=== PATIENT | female | born 1945 | race Caucasian/White ===

== ENCOUNTER → 2021-02-25 13:16 | Outpatient (CLI) | payer MEDICARE, SELFPAY ==
[2021-02-25 13:37] LABS: Absolute Lymphocyte Count 2.51 X10^3/uL (0.83-4.51); Absolute Neutrophil Count 4.3 X10^3/uL (2.0-7.7); Basophil# 0.09 X10^3/uL; Basophil% 1.2 % (0-1); Eosinophil# 0.18 X10^3/uL; Eosinophils% 2.3 % (0-5); Hematocrit 40.2 % (37-47); Hemoglobin 13.2 g/dL (12.0-15.0); Lymphocyte # 2.51 X10^3/ul (0.83-4.51); Lymphocyte % 32.4 % (19-41); Mean Corp Hgb Conc 32.8 g/dL (32-36); Mean Corpuscular Hgb 28.9 pg (27.0-32.0); Mean Platelet Vol. 10.6 fl (6.2-12.0); Monocyte# 0.62 X10^3/uL; NRBC Flagged by Analyzer 0 % (0-5); Neutrophil # 4.33 X10^3/uL (2.7-7.7); Neutrophil % 55.8 % (47-70); Platelet Count 193 K/mm3 (150-450); RBC Distribution Width CV 13.2 % (11.6-14.6); RBC Distribution Width SD 42.9 fl (35.1-43.9); Red Blood Count 4.57 M/mm3 (4.2-5.4); White Blood Count 7.8 K/mm3 (4.4-11.0)
[2021-02-25 14:03] LABS: Vitamin D,25 Hydroxy 46.3 ng/mL
[2021-02-25 14:10] LABS: ALB/GLOB Ratio 0.7 RATIO (0.9-2.4); AST(SGOT) 50 U/L (15-37); Alanine Aminotransfer ALT/SGPT 52 U/L (13-56); Albumin, Serum 3.5 g/dL (3.2-5.0); Alkaline Phosphatase 111 U/L (45-117); Anion Gap 7 (5-15); BUN 29 mg/dL (7-18); BUN/Creat Ratio 22.5 RATIO (10-20); Calcium,Total 9.7 mg/dL (8.5-10.1); Chloride 104 mmol/L (98-107); Creatinine, Serum 1.29 mg/dL (0.55-1.02); EST Glomerular Filtration Rate 43 mL/min (>60); Est Glom Filt Rate - Afr Amer 52 mL/min (>60); Glucose 214 mg/dL (74-106); Protein, Total 8.5 g/dL (6.4-8.2); Sodium Level 137 mmol/L (136-145); Thyroid Stim Hormone (TSH) 0.85 uIU/mL (0.358-3.74)
== END ==
PROVIDERS: PCP Family Medicine Geriatric Medicine; Referring Provider Family Medicine Geriatric Medicine; Visit Provider Family Medicine Geriatric Medicine
DX: I10 Essential (primary) hypertension (principal); E55.9 Vitamin D deficiency, unspecified
CPT/HCPCS: 36415; 80053; 82306; 84443; 85025

== ENCOUNTER → 2021-04-08 13:42 | Outpatient (CLI) | payer MEDICARE, SELFPAY ==
[2021-04-08 15:12] LABS: Amphetamine Urine VISTA NEGATIVE (<1000 ng/mL); Barbiturate Urine VISTA NEGATIVE (< 200 ng/mL); Benzodiazepine Urine VISTA NEGATIVE (< 200 ng/mL); Cocaine Urine VISTA NEGATIVE (< 300 ng/mL); Ecstacy Urine VISTA NEGATIVE (< 500 ng/mL); Methadone Urine VISTA NEGATIVE (< 300 ng/mL); PCP Urine VISTA NEGATIVE (< 25 ng/mL); THC Urine VISTA NEGATIVE (< 50 ng/mL); Vista UDS pH Range 6
== END ==
PROVIDERS: PCP Family Medicine Geriatric Medicine; Referring Provider Anesthesiology Pain Medicine; Visit Provider Anesthesiology Pain Medicine
DX: F11.20 Opioid dependence, uncomplicated (principal)
CPT/HCPCS: 36415; 80307

== ENCOUNTER → 2021-05-06 10:42 | Outpatient (CLI) | payer MEDICARE, SELFPAY ==
--- NOTE | 2021-05-06 12:01 | RAD_ITS ---
STUDY: X-RAY - ABDOMEN/PELVIS REASON FOR EXAM: Female, 76 years old. ABD PAIN TECHNIQUE: 5 views AP supine and upright views of the abdomen and pelvis. COMPARISON: None. FINDINGS: Normal visualized lung bases. There is moderate stool in the colon. Postoperative changes in the right upper quadrant status post cholecystectomy. The liver spleen and kidneys are mostly obscured on this study. Normal soft tissue structures. There is advanced degenerative change of the right greater than left hip joint with right hip joint narrowing and sclerosis. There is levoscoliosis and multilevel spondylosis. RAD/Abd Inc Decub and/or Erect IMPRESSION: Constipation. Levoscoliosis, degenerative changes lumbar spine. Severe degenerative change right hip joint. Status post cholecystectomy. Electronically Signed: Claudette Herrera MD at 2:10 EST Tel , Service support ,
[2021-05-06 12:27] LABS: Absolute Lymphocyte Count 2.22 X10^3/uL (0.83-4.51); Absolute Neutrophil Count 4.6 X10^3/uL (2.0-7.7); Basophil# 0.11 X10^3/uL; Basophil% 1.4 % (0-1); Eosinophil# 0.21 X10^3/uL; Eosinophils% 2.7 % (0-5); Hematocrit 38.4 % (37-47); Hemoglobin 12.5 g/dL (12.0-15.0); Lymphocyte # 2.22 X10^3/ul (0.83-4.51); Mean Corp Hgb Conc 32.6 g/dL (32-36); Mean Corpuscular Hgb 28.7 pg (27.0-32.0); Mean Corpuscular Volume 88.1 fL (81-99); Mean Platelet Vol. 11.8 fl (6.2-12.0); Monocyte% 6.5 % (0-10); NRBC Flagged by Analyzer 0 % (0-5); Neutrophil # 4.59 X10^3/uL (2.7-7.7); Neutrophil % 60.1 % (47-70); Platelet Count 200 K/mm3 (150-450); RBC Distribution Width CV 13.6 % (11.6-14.6); RBC Distribution Width SD 44.3 fl (35.1-43.9); Red Blood Count 4.36 M/mm3 (4.2-5.4); White Blood Count 7.7 K/mm3 (4.4-11.0)
[2021-05-06 12:33] LABS: Vitamin D,25 Hydroxy 60.8 ng/mL
[2021-05-06 12:45] LABS: ALB/GLOB Ratio 0.7 RATIO (0.9-2.4); AST(SGOT) 42 U/L (15-37); Alanine Aminotransfer ALT/SGPT 54 U/L (13-56); Albumin, Serum 3.2 g/dL (3.2-5.0); Alkaline Phosphatase 135 U/L (45-117); Anion Gap 5 (5-15); BUN 23 mg/dL (7-18); BUN/Creat Ratio 17.3 RATIO (10-20); Calcium,Total 9.4 mg/dL (8.5-10.1); Chloride 104 mmol/L (98-107); Creatinine, Serum 1.33 mg/dL (0.55-1.02); EST Glomerular Filtration Rate 41 mL/min (>60); Est Glom Filt Rate - Afr Amer 50 mL/min (>60); Globulin 4.5 g/dL (2.2-4.2); Glucose 271 mg/dL (74-106); Potassium 5.6 mmol/L (3.5-5.1); Protein, Total 7.7 g/dL (6.4-8.2); Sodium Level 137 mmol/L (136-145); Thyroid Stim Hormone (TSH) 1.41 uIU/mL (0.358-3.74)
--- NOTE | 2021-05-06 13:50 | RAD_ITS ---
STUDY: X-RAY - PELVIS AND RIGHT HIP REASON FOR EXAM: Female, 76 years old. R HIP PAIN TECHNIQUE: 3 views of the pelvis and hip. COMPARISON: None. FINDINGS: There is a non-specific bowel gas pattern. Normal visualized soft tissue structures. There is mild narrowing with cortical sclerosis and osteophyte formation of the sacroiliac joint consistent with degenerative osteoarthritic changes. Normal bilateral superior and inferior pubic rami. Normal pubic symphysis. Normal bilateral ischial tuberosities. Mild sclerosis of the superolateral femoral head. There is osteoarthritic spur formation of the acetabular rim. Subchondral cysts involving the superolateral acetabulum and superolateral femoral head suspected. There is severe articular joint space narrowing of the hip particularly along the superolateral joint space. RAD/HIP, UNI W/ Pelvis 2-3 Views IMPRESSION: Severe degenerative changes with approximately 1 mm joint space along the superolateral hip joint with large acetabular spurring, probable subchondral cysts and sclerotic humeral head. No loss of humeral head height to suggest avascular necrosis. Electronically Signed: Alondra Hansen MD at 3:18 EST , Service support ,
== END ==
LOC: POLAB3 12:01 → RAD 13:48
PROVIDERS: PCP Family Medicine Geriatric Medicine; Referring Provider Anesthesiology Pain Medicine; Visit Provider Anesthesiology Pain Medicine
DX: M25.551 Pain in right hip (principal); E11.65 Type 2 diabetes mellitus with hyperglycemia; E55.9 Vitamin D deficiency, unspecified; I10 Essential (primary) hypertension; R10.9 Unspecified abdominal pain
CPT/HCPCS: 36415; 73502; 74019; 80053; 82306; 84443; 85025

== ENCOUNTER → 2021-05-14 10:00 | Outpatient (CLI) | payer MEDICARE, SELFPAY ==
[2021-05-14 12:49] LABS: Anion Gap 4 (5-15); BUN 30 mg/dL (7-18); BUN/Creat Ratio 21.9 RATIO (10-20); Calcium,Total 10.1 mg/dL (8.5-10.1); Chloride 105 mmol/L (98-107); Creatinine, Serum 1.37 mg/dL (0.55-1.02); EST Glomerular Filtration Rate 40 mL/min (>60); Est Glom Filt Rate - Afr Amer 48 mL/min (>60); Glucose 234 mg/dL (74-106); Potassium 5.7 mmol/L (3.5-5.1); Sodium Level 137 mmol/L (136-145)
== END ==
PROVIDERS: PCP Family Medicine Geriatric Medicine; Visit Provider Family Medicine Geriatric Medicine
DX: E87.5 Hyperkalemia (principal)
CPT/HCPCS: 36415; 80048

== ENCOUNTER → 2021-05-20 13:53 | Outpatient (CLI) | payer MEDICARE, SELFPAY ==
[2021-05-20 15:18] LABS: Anion Gap 6 (5-15); BUN 23 mg/dL (7-18); Calcium,Total 8.8 mg/dL (8.5-10.1); Chloride 101 mmol/L (98-107); Creatinine, Serum 1.35 mg/dL (0.55-1.02); EST Glomerular Filtration Rate 40 mL/min (>60); Est Glom Filt Rate - Afr Amer 49 mL/min (>60); Glucose 276 mg/dL (74-106); Potassium 4.4 mmol/L (3.5-5.1); Sodium Level 135 mmol/L (136-145)
== END ==
PROVIDERS: PCP Family Medicine Geriatric Medicine; Visit Provider Family Medicine Geriatric Medicine
DX: E87.5 Hyperkalemia (principal)
CPT/HCPCS: 36415; 80048

== ENCOUNTER 2021-06-03 12:10 | Outpatient (CLI) | payer MEDICARE, SELFPAY ==
[2021-06-03 12:54] LABS: Protein, Urine (Random) 25.7 mg/dL (<11.9); Protein:Creat Ratio 152 mg/g CRE (0-200)
[2021-06-03 13:05] LABS: Albumin, Serum 3.2 g/dL (3.2-5.0); BUN 28 mg/dL (7-18); BUN/Creat Ratio 22.4 RATIO (10-20); Calcium,Total 9.2 mg/dL (8.5-10.1); Chloride 106 mmol/L (98-107); Creatinine, Serum 1.25 mg/dL (0.55-1.02); EST Glomerular Filtration Rate 44 mL/min (>60); Est Glom Filt Rate - Afr Amer 53 mL/min (>60); Glucose 170 mg/dL (74-106); Phosphorus 3.3 mg/dL (2.5-4.9); Sodium Level 136 mmol/L (136-145)
[2021-06-03 14:13] LABS: Amphetamine Urine VISTA NEGATIVE (<1000 ng/mL); Barbiturate Urine VISTA NEGATIVE (< 200 ng/mL); Benzodiazepine Urine VISTA NEGATIVE (< 200 ng/mL); Cocaine Urine VISTA NEGATIVE (< 300 ng/mL); Ecstacy Urine VISTA NEGATIVE (< 500 ng/mL); Methadone Urine VISTA NEGATIVE (< 300 ng/mL); PCP Urine VISTA NEGATIVE (< 25 ng/mL); THC Urine VISTA NEGATIVE (< 50 ng/mL); Vista UDS pH Range 5
== END 2021-06-03 23:59 | disposition short-term general hospital (02) ==
LOC: POLAB3 12:10 → LAB 12:54
PROVIDERS: Anesthesiology Pain Medicine; PCP Family Medicine Geriatric Medicine; Referring Provider Internal Medicine Nephrology; Visit Provider Internal Medicine Nephrology
DX: N18.32 Chronic kidney disease, stage 3b (principal); F11.20 Opioid dependence, uncomplicated
CPT/HCPCS: 36415; 80069; 80307; 82570; 84156

== ENCOUNTER 2021-07-01 10:55 | Outpatient (CLI) | payer MEDICARE, SELFPAY ==
--- NOTE | 2021-07-01 10:58 | US_ITS ---
STUDY: RENAL ULTRASOUND - COMPLETE REASON FOR EXAM: Female, 76 years old. CKD3 TECHNIQUE: Ultrasound evaluation of the kidneys was performed with real-time and static montes-scale imaging. COMPARISON: None. FINDINGS: RIGHT KIDNEY: Normal location of the right kidney, which is normal in size. The right kidney measures 10.8 x 4.4 x 5.8 cm. There is a normal cortex of the right kidney. The renal cortex measures 1.9 cm. There is no right renal mass or cyst. There are no right renal calculi. There is no right hydronephrosis. DISTAL RIGHT URETER: There is non-visualization of the distal right ureter. There is no demonstrated right ureterovesical junction calculus. There is a visualized right ureteral jet. LEFT KIDNEY: Normal location of the left kidney, which is normal in size. The left kidney measures 9.7 x 4.3 x 4.4 cm. There is a normal cortex of the left kidney. The renal cortex measures 1.4 cm. There is a cyst measuring 1.6 x 1.1 x 1 cm There are no left renal calculi. There is no left hydronephrosis. DISTAL LEFT URETER: There is non-visualization of the distal left ureter. There is no demonstrated left ureterovesical junction calculus. There is a visualized left ureteral jet. Mild prominence of the renal cortical echoes and pelvis bilaterally consistent with nonspecific renal parenchymal disease BLADDER: The distended urinary bladder has a volume of 126 ml.. There is a normal wall thickness of the distended urinary bladder. There is no demonstrated mass within the urinary bladder. There are no demonstrated bladder calculi. US/Kidney and Bladder IMPRESSION: Nonspecific renal parenchymal disease. No evidence for renal obstruction. Small left renal cyst. Electronically Signed: Luis Li MD at 16:53 EST ,
[2021-07-01 13:58] LABS: Amphetamine Urine VISTA NEGATIVE (<1000 ng/mL); Barbiturate Urine VISTA NEGATIVE (< 200 ng/mL); Benzodiazepine Urine VISTA NEGATIVE (< 200 ng/mL); Cocaine Urine VISTA NEGATIVE (< 300 ng/mL); Ecstacy Urine VISTA NEGATIVE (< 500 ng/mL); Methadone Urine VISTA NEGATIVE (< 300 ng/mL); PCP Urine VISTA NEGATIVE (< 25 ng/mL); THC Urine VISTA NEGATIVE (< 50 ng/mL); Vista UDS pH Range 6
== END 2021-07-01 23:59 | disposition home or self-care (01) ==
PROVIDERS: Anesthesiology Pain Medicine; PCP Family Medicine Geriatric Medicine; Referring Provider Internal Medicine Nephrology; Visit Provider Internal Medicine Nephrology
DX: N18.32 Chronic kidney disease, stage 3b (principal); F11.20 Opioid dependence, uncomplicated
CPT/HCPCS: 76770; 80307

== ENCOUNTER 2021-07-07 14:05 | Outpatient (CLI) | payer MEDICARE, SELFPAY ==
[2021-07-07 15:37] LABS: Amphetamine Urine VISTA NEGATIVE (<1000 ng/mL); Barbiturate Urine VISTA NEGATIVE (< 200 ng/mL); Benzodiazepine Urine VISTA NEGATIVE (< 200 ng/mL); Cocaine Urine VISTA NEGATIVE (< 300 ng/mL); Ecstacy Urine VISTA NEGATIVE (< 500 ng/mL); Methadone Urine VISTA NEGATIVE (< 300 ng/mL); PCP Urine VISTA NEGATIVE (< 25 ng/mL); THC Urine VISTA NEGATIVE (< 50 ng/mL); Vista UDS pH Range 5
== END 2021-07-07 23:59 | disposition home or self-care (01) ==
PROVIDERS: PCP Family Medicine Geriatric Medicine; Visit Provider Anesthesiology Pain Medicine
DX: F11.20 Opioid dependence, uncomplicated (principal)
CPT/HCPCS: 80307

== ENCOUNTER 2021-07-29 09:36 | Outpatient (CLI) | payer MEDICARE, SELFPAY ==
[2021-07-29 12:06] LABS: Absolute Lymphocyte Count 1.94 X10^3/uL (0.83-4.51); Absolute Neutrophil Count 4.6 X10^3/uL (2.0-7.7); Basophil# 0.07 X10^3/uL; Basophil% 0.9 % (0-1); Eosinophil# 0.19 X10^3/uL; Eosinophils% 2.6 % (0-5); Hematocrit 38.5 % (37-47); Hemoglobin 12.8 g/dL (12.0-15.0); Lymphocyte # 1.94 X10^3/ul (0.83-4.51); Lymphocyte % 26.2 % (19-41); Mean Corp Hgb Conc 33.2 g/dL (32-36); Mean Corpuscular Hgb 28.9 pg (27.0-32.0); Mean Corpuscular Volume 86.9 fL (81-99); Mean Platelet Vol. 11.2 fl (6.2-12.0); Monocyte# 0.55 X10^3/uL; Monocyte% 7.4 % (0-10); NRBC Flagged by Analyzer 0 % (0-5); Neutrophil # 4.63 X10^3/uL (2.7-7.7); Neutrophil % 62.5 % (47-70); Platelet Count 203 K/mm3 (150-450); RBC Distribution Width CV 13.8 % (11.6-14.6); RBC Distribution Width SD 44.6 fl (35.1-43.9); Red Blood Count 4.43 M/mm3 (4.2-5.4); White Blood Count 7.4 K/mm3 (4.4-11.0)
[2021-07-29 12:17] LABS: Vitamin D,25 Hydroxy 67.1 ng/mL
[2021-07-29 12:28] LABS: ALB/GLOB Ratio 0.7 RATIO (0.9-2.4); AST(SGOT) 28 U/L (15-37); Alanine Aminotransfer ALT/SGPT 31 U/L (13-56); Alkaline Phosphatase 100 U/L (45-117); Anion Gap 7 (5-15); BUN 15 mg/dL (7-18); BUN/Creat Ratio 12.8 RATIO (10-20); Calcium,Total 9.1 mg/dL (8.5-10.1); Chloride 103 mmol/L (98-107); Creatinine, Serum 1.17 mg/dL (0.55-1.02); EST Glomerular Filtration Rate 48 mL/min (>60); Est Glom Filt Rate - Afr Amer 58 mL/min (>60); Globulin 4.3 g/dL (2.2-4.2); Glucose 201 mg/dL (74-106); Potassium 4.3 mmol/L (3.5-5.1); Protein, Total 7.3 g/dL (6.4-8.2); Sodium Level 138 mmol/L (136-145); Thyroid Stim Hormone (TSH) 1.43 uIU/mL (0.358-3.74)
== END 2021-07-29 23:59 | disposition home or self-care (01) ==
LOC: POLAB3 09:37
PROVIDERS: PCP Family Medicine Geriatric Medicine; Visit Provider Family Medicine Geriatric Medicine
DX: E11.65 Type 2 diabetes mellitus with hyperglycemia (principal); E55.9 Vitamin D deficiency, unspecified; I10 Essential (primary) hypertension
CPT/HCPCS: 36415; 80053; 82306; 84443; 85025

== ENCOUNTER 2021-08-13 12:14 | Outpatient (CLI) | payer MEDICARE, SELFPAY ==
--- NOTE | 2021-08-13 12:19 | BD_ITS ---
STUDY: DUAL ENERGY X-RAY ABSORPTIOMETRY / DXA REASON FOR EXAM: Female, 76 years old. Z780. The patient is postmenopausal. TECHNIQUE: Bone Mineral Density (BMD) measurements of lumbar spine and bilateral hips were obtained. COMPARISON: None. FINDINGS: Lumbar Spine (L1-L4): g/cm2 (1.077) / T-score (0.3) / Z-score (2.8) Findings are suggestive of normal bone density with a low fracture risk. Left Femur Total: g/cm2 (0.874) / T-score (-0.6) / Z-score (1.3) Left Femoral Neck: g/cm2 (0.661) / T-score (-1.7) / Z-score (0.5) Right Femur Total: g/cm2 (0.849) / T-score (-0.8) / Z-score (1.1) Right Femoral Neck: g/cm2 (0.751) / T-score (-0.9) / Z-score (1.3) BD/Dexa Bone Density Study IMPRESSION: The patient is considered osteopenic as outlined below according to World Ronald Organization (WHO) criteria with a moderate fracture risk. Reference Information: The T-score is the number of standard deviations above or below the standard which is normal for young adults at their peak bone mineral density. The World Health Organization (WHO) interprets the T-scores as follows: Above -1 Normal bone density Between -1 and -2.5 Osteopenia Equal to / or below -2.5 Osteoporosis As a practical clinical guideline, osteopenia may be graded as follows: Mild -1 through -1.5 Moderate -1.6 through -2.0 Severe -2.1 through -2.4 The Z-score is the number of standard deviations above or below age-matched controls. A Z-score of less than -1.5 would be considered abnormal. References: 1. NIH Osteoporosis and Related Bone Diseases www osteo.org 2. International Society for Clinical Densitometry www iscd.org 3. National Osteoporosis Foundation www nof.org Electronically Signed: Avinash Swift MD at 15:29 EDT ,
== END 2021-08-13 23:59 | disposition home or self-care (01) ==
LOC: OPBD 12:15
PROVIDERS: PCP Family Medicine Geriatric Medicine; Visit Provider Family Medicine Geriatric Medicine
DX: Z78.0 Asymptomatic menopausal state (principal)
CPT/HCPCS: 77080

== ENCOUNTER → 2021-10-27 | Outpatient (CLI) | payer MEDICARE, SELFPAY ==
[2021-10-27 12:34] LABS: Absolute Lymphocyte Count 2.43 X10^3/uL (0.83-4.51); Absolute Neutrophil Count 4.6 X10^3/uL (2.0-7.7); Basophil# 0.08 X10^3/uL; Eosinophil# 0.22 X10^3/uL; Eosinophils% 2.7 % (0-5); Hematocrit 38.3 % (37-47); Hemoglobin 12.4 g/dL (12.0-15.0); Lymphocyte # 2.43 X10^3/ul (0.83-4.51); Lymphocyte % 29.8 % (19-41); Mean Corp Hgb Conc 32.4 g/dL (32-36); Mean Corpuscular Hgb 28.6 pg (27.0-32.0); Mean Corpuscular Volume 88.5 fL (81-99); Mean Platelet Vol. 11.4 fl (6.2-12.0); Monocyte# 0.74 X10^3/uL; Monocyte% 9.1 % (0-10); NRBC Flagged by Analyzer 0 % (0-5); Neutrophil # 4.64 X10^3/uL (2.7-7.7); Neutrophil % 56.9 % (47-70); Platelet Count 210 K/mm3 (150-450); RBC Distribution Width CV 14.4 % (11.6-14.6); RBC Distribution Width SD 46.9 fl (35.1-43.9); Red Blood Count 4.33 M/mm3 (4.2-5.4); White Blood Count 8.2 K/mm3 (4.4-11.0)
[2021-10-27 12:46] LABS: Vitamin D,25 Hydroxy 63.3 ng/mL
[2021-10-27 12:57] LABS: ALB/GLOB Ratio 0.7 RATIO (0.9-2.4); AST(SGOT) 29 U/L (15-37); Alanine Aminotransfer ALT/SGPT 32 U/L (13-56); Albumin, Serum 3.2 g/dL (3.2-5.0); Alkaline Phosphatase 102 U/L (45-117); Anion Gap 6 (5-15); BUN 16 mg/dL (7-18); BUN/Creat Ratio 10.9 RATIO (10-20); Calcium,Total 9.2 mg/dL (8.5-10.1); Chloride 106 mmol/L (98-107); Creatinine, Serum 1.47 mg/dL (0.55-1.02); EST Glomerular Filtration Rate 37 mL/min (>60); Est Glom Filt Rate - Afr Amer 44 mL/min (>60); Globulin 4.4 g/dL (2.2-4.2); Glucose 135 mg/dL (74-106); Phosphorus 2.6 mg/dL (2.5-4.9); Potassium 4.6 mmol/L (3.5-5.1); Protein, Total 7.6 g/dL (6.4-8.2); Sodium Level 139 mmol/L (136-145); Thyroid Stim Hormone (TSH) 2.68 uIU/mL (0.358-3.74)
[2021-10-27 12:58] LABS: PTHIN 52.4 pg/mL (18.4-80.1)
== END | disposition home or self-care (01) ==
PROVIDERS: PCP Family Medicine Geriatric Medicine; Visit Provider Internal Medicine Nephrology
DX: E11.22 Type 2 diabetes mellitus with diabetic chronic kidney disease (principal); E11.65 Type 2 diabetes mellitus with hyperglycemia; N18.32 Chronic kidney disease, stage 3b; I12.9 Hypertensive chronic kidney disease with stage 1 through stage 4 chronic kidney disease, or unspecified chronic kidney disease
CPT/HCPCS: 36415; 80053; 82306; 83970; 84100; 84443; 85025

== ENCOUNTER 2021-11-05 12:39 | Emergency (ER) | payer MEDICARE, SELFPAY ==
[2021-11-05] VITALS (7 sets, daily range): BP systolic 97–126; BP diastolic 58–60; PULSE 63–77; RESP 11–13; TEMP 35.6; O2SAT 88–99; BMI 33.9
--- NOTE | 2021-11-05 13:00 | EKG12_ITS ---
Test Reason : FALL Blood Pressure : / mmHG Vent. Rate : 061 BPM Atrial Rate : 061 BPM P-R Int : 194 ms QRS Dur : 136 ms QT Int : 458 ms P-R-T Axes : 058 013 091 degrees QTc Int : 461 ms Normal sinus rhythm Left bundle branch block Abnormal ECG Confirmed by CIERRA TIPTON, MUSA ([id number]), editorial manager LETTY MOREIRA ([id number]) on 11/06/2021 9:02:55 AM Referred By: Confirmed By:MUSA NORTON MD
--- NOTE | 2021-11-05 13:00 | RAD_ITS ---
STUDY: X-RAY - right HIP REASON FOR EXAM: 76-year-old female patient with history of right hip pain following a fall., TECHNIQUE: 3 views of the hip. COMPARISON: Comparison is made with prior study dated 05/06/2021. FINDINGS: Marked degree of the joint space narrowing of the right hip joint with a subchondral geodes involving the acetabulum and the femoral head. This is suggestive of avascular necrosis. Degenerative changes and sclerosis of the symphysis pubis. Normal visualized superior and inferior pubic rami and ischial tuberosities. Disc space narrowing and spondylosis in the lower lumbar spine. RAD/HIP, UNI W/ Pelvis 2-3 Views IMPRESSION: Marked degree of the joint space narrowing of the right hip joint with some chondral geodes suggestive of avascular necrosis. No evidence of fracture or dislocation. Electronically Signed: Avinash Swift MD at 13:50 EDT ,
--- NOTE | 2021-11-05 13:01 | ED.VIS.FALL ---
HPI <JEANNETTE Crabtree - Last Filed: 11/05/21 15:55> HPI - Fall History of Present Illness Chief Complaint: Fall Narrative Narrative: 76-year-old female presents after a fall with right hip injury that occurred just prior to arrival. She was in the garage leaning over to fill a cat bowl when she felt lightheaded and fell onto her right side. Denies head injury or LOC. She was unable to get up and was brought in by EMS. She states she took her morning BP meds but had not eaten or drank anything yet. PFSH <JEANNETTE Crabtree - Last Filed: 11/05/21 15:55> [facility] Medical History (Updated 11/05/21 @ 15:[address] Jt Tavera DO) Hypertension Home Medications isosorbide mononitrate 30 mg tablet,extended release 24 hr 1 tab PO DAILY 11/05/21 [History Last Taken Unknown] lisinopril 10 mg tablet 1 tab PO DAILY 11/05/21 [History Last Taken Unknown] omeprazole 40 mg capsule,delayed release 1 cap PO DAILY 11/05/21 [History Last Taken Unknown] tramadol 50 mg tablet 100 tab PO TID 11/05/21 [History Last Taken Unknown] Allergy/AdvReac Type Severity Reaction Status Date / Time codeine Allergy Other Verified 11/05/21 12:41 [id number] Reductase Allergy Other Verified 11/05/21 12:41 Inhibitor Sulfa (Sulfonamide Allergy Other Verified 11/05/21 12:41 Antibiotics) Social History Smoking Status: Never smoker ROS <JEANNETTE Crabtree - Last Filed: 11/05/21 15:55> ROS ED ROS Narrative Constitutional: Negative for fever, chills, malaise. Eyes: Negative for visual change. ENT: Negative for sore throat, ear pain, rhinorrhea. CVS: Negative for palpitations, chest pain, syncope. Respiratory: Negative for shortness of breath, cough, orthopnea. GI: Negative for abdominal pain, nausea, vomiting, diarrhea, constipation, melena, hematochezia. : Negative for dysuria, hematuria or frequency. Neuro: Negative for headache, motor/sensory dysfunction. Skin: Negative for rash, abscess, or wound. Musc: Positive for right hip pain, trauma. Heme: Negative for easy bruising, bleeding, lymphadenopathy. EXAM <JEANNETTE Crabtree Last Filed: 11/05/21 15:55> Physical Exam Narrative Exam Narrative: CONST: Patient sitting in no acute distress. EYES: Normal inspection. HEAD: Normocephalic, atraumatic NECK: Normal inspection. RESP: No respiratory distress, CTAB. Chest wall nontender. CVS: Regular rate and rhythm, no murmur, no gallop. ABD: Soft and nontender, no guarding or rebound, nondistended. Back: Normal inspection, no midline spinal tenderness, no step off or crepitus.. SKIN: Right knee abrasion. EXTREMITIES: Normal appearance, tender to palpation over right hip and with any range of motion, no tenderness of the knee or ankle. No tenderness of BUE or LLE. 2+ radial and DP pulses. NEURO: Oriented x4. PSYCH: Normal affect. Const Vital Signs: 11/05/21 12:41 11/05/21 12:46 11/05/21 13:31 Temperature 96.1 F L Temperature Source Temporal Pulse Rate 63 Respiratory Rate 11 L Respiratory Effort Normal Non-Labored Blood Pressure 102/58 L 97/60 Blood Pressure Mean 72 72 Pulse Ox 92 96 Oxygen Delivery Method Room Air Room Air Room Air 11/05/21 13:48 11/05/21 15:23 11/05/21 15:50 Temperature Temperature Source Pulse Rate 77 Respiratory Rate 13 Respiratory Effort Blood Pressure 106/60 126/59 H Blood Pressure Mean 75 81 Pulse Ox 92 92 Oxygen Delivery Method <Dr. Jt Tavera DO - Last Filed: 11/05/21 15:58> Physical Exam Const Vital Signs: 11/05/21 12:41 11/05/21 12:46 11/05/21 13:31 Temperature 96.1 F L Temperature Source Temporal Pulse Rate 63 Respiratory Rate 11 L Respiratory Effort Normal Non-Labored Blood Pressure 102/58 L 97/60 Blood Pressure Mean 72 72 Pulse Ox 92 96 Oxygen Delivery Method Room Air Room Air Room Air 11/05/21 13:48 11/05/21 15:23 11/05/21 15:50 Temperature Temperature Source Pulse Rate 77 Respiratory Rate 13 Respiratory Effort Blood Pressure 106/60 126/59 H Blood Pressure Mean 75 81 Pulse Ox 92 92 Oxygen Delivery Method MDM <JEANNETTE Crabtree Last Filed: 11/05/21 15:55> [facility] MDM Narrative Medical decision making narrative: Patient felt lightheaded while bending over and fell onto her right hip. No head injury or syncope. She appears well and nontoxic. Vital signs unremarkable with BP on lower end and 100s/60s. Cardiopulmonary exam is normal. Abdomen soft and nontender. Pelvis stable. Both legs appear symmetric but she does have significant right hip pain and also has a right knee abrasion but no tenderness. Distal pulses intact. The rest of her exam is benign. Right hip x-ray showed suspected intertrochanteric fracture which was confirmed by CT. labs show mildly elevated creatinine of 1.73 from baseline, potassium 5.5, otherwise normal. Cardiac work-up negative. Patient was treated with IV fluids and Percocet for pain. Declined IV pain medication. Case will be discussed with the orthopedist and hospitalist for admission for hip fracture. 1. Right hip pain 2. Right hip fracture 3. Right knee abrasion Lab Data Attestation: I reviewed the patient's lab results. Labs: Laboratory Results - last 24 hr 11/05/21 11/05/21 11/05/21 13:15 13:15 13:15 WBC 8.3 RBC 4.10 L Hgb 12.0 Hct 36.3 L MCV 88.5 MCH 29.3 MCHC 33.1 RDW Std Deviation 46.0 H RDW Coeff of Sarah 14.3 Plt Count 196 MPV 11.3 Immature Gran % (Auto) 0.400 Neut % (Auto) 60.3 Lymph % (Auto) 26.7 [place] % (Auto) 8.2 Eos % (Auto) 3.2 Baso % (Auto) 1.2 H Absolute Neuts (auto) 5.0 Absolute Lymphs (auto) 2.22 Nucleated RBC % 0 Sodium 137 Potassium 5.5 H Chloride 106 Carbon Dioxide 27.0 Anion Gap 4 L BUN 35 H Creatinine 1.73 H Estim Creat Clear Calc 25.49 Est GFR (MDRD) Af Amer 37 L Est GFR (MDRD) Non-Af 30 L BUN/Creatinine Ratio 20.2 H Glucose 128 H Calcium 9.1 Troponin I High Sens 8 Radiography Diagnostic Testing: Clinical Impression(s) from Imaging Studies Hip/Pelvis X-Ray 11/05/21 13:00 IMPRESSION: Marked degree of the joint space narrowing of the right hip joint with some chondral geodes suggestive of avascular necrosis. No evidence of fracture or dislocation. Electronically Signed: Avinash Swift MD at 13:50 EDT , Lower Extremity CT 11/05/21 13:56 IMPRESSION: Findings suggestive of a subtle nondisplaced intertrochanteric fracture. Marked degree of osteoarthritis involving the right hip joint with possible avascular necrosis. Electronically Signed: Avinash Swift MD at 15:05 EDT , ED attending interpretation of right hip x-ray shows suspected intertrochanteric fracture. <Dr. Jt Tavera, DO - Last Filed: 11/05/21 15:58> [facility] Narrative Medical decision making narrative: Patient felt lightheaded while bending over and fell onto her right hip. No head injury or syncope. She appears well and nontoxic. Vital signs unremarkable with BP on lower end and 100s/60s. Cardiopulmonary exam is normal. Abdomen soft and nontender. Pelvis stable. Both legs appear symmetric but she does have significant right hip pain and also has a right knee abrasion but no tenderness. Distal pulses intact. The rest of her exam is benign. Right hip x-ray showed suspected intertrochanteric fracture which was confirmed by CT. labs show mildly elevated creatinine of 1.73 from baseline, potassium 5.5, otherwise normal. Cardiac work-up negative. Patient was treated with IV fluids and Percocet for pain. Declined IV pain medication. Case will be discussed with the orthopedist and hospitalist for admission for hip fracture. 1. Right hip pain 2. Right hip fracture 3. Right knee abrasion I performed a history and physical examination of the patient and discussed management plan with the physician assistant clinical director. I reviewed the physician assistant clinical director's note and agree with the documented findings and plan of care. Patient sustained a mechanical fall today. Plan to patient of the plain films of the right hip and pelvis is a subtle intertrochanteric fracture. CT confirms this finding. Plan is admission. Jt Tavera DO, MS Lab Data Labs: Laboratory Results - last 24 hr 11/05/21 11/05/21 11/05/21 13:15 13:15 13:15 WBC 8.3 RBC 4.10 L Hgb 12.0 Hct 36.3 L MCV 88.5 MCH 29.3 MCHC 33.1 RDW Std Deviation 46.0 H RDW Coeff of Sarah 14.3 Plt Count 196 MPV 11.3 Immature Gran % (Auto) 0.400 Neut % (Auto) 60.3 Lymph % (Auto) 26.7 [place] % (Auto) 8.2 Eos % (Auto) 3.2 Baso % (Auto) 1.2 H Absolute Neuts (auto) 5.0 Absolute Lymphs (auto) 2.22 Nucleated RBC % 0 Sodium 137 Potassium 5.5 H Chloride 106 Carbon Dioxide 27.0 Anion Gap 4 L BUN 35 H Creatinine 1.73 H Estim Creat Clear Calc 25.49 Est GFR (MDRD) Af Amer 37 L Est GFR (MDRD) Non-Af 30 L BUN/Creatinine Ratio 20.2 H Glucose 128 H Calcium 9.1 Troponin I High Sens 8 Radiography Diagnostic Testing: Clinical Impression(s) from Imaging Studies Hip/Pelvis X-Ray 11/05/21 13:00 IMPRESSION: Marked degree of the joint space narrowing of the right hip joint with some chondral geodes suggestive of avascular necrosis. No evidence of fracture or dislocation. Electronically Signed: Avinash Swift MD at 13:50 EDT Reading Location ID and State: [facility] / [place] , Service support , Lower Extremity CT 11/05/21 13:56 IMPRESSION: Findings suggestive of a subtle nondisplaced intertrochanteric fracture. Marked degree of osteoarthritis involving the right hip joint with possible avascular necrosis. Electronically Signed: Avinash Swift MD at 15:05 EDT , Discharge Plan Triage Chief Complaint: Fall ED Midlevel Provider: Candace Mora ED Provider: Jt Tavera Dx/Rx/DC Orders Clinical Impression: Fall, Closed intertrochanteric fracture of right hip Prescriptions: No Action isosorbide mononitrate 30 mg tablet extended release 24 hr 1 tab PO DAILY Label Comments: TAKE 1 TABLET BY MOUTH ONCE DAILY FOR 30 DAYS omeprazole 40 mg capsule,delayed release(DR/EC) 1 cap PO DAILY Label Comments: TAKE 1 CAPSULE BY MOUTH TWICE DAILY tramadol 50 mg tablet 100 tab PO TID Label Comments: TAKE 1 TABLET BY MOUTH IN THE MORNING AND 2 IN THE EVENING AND 2 AT BEDTIME FOR 28 DAYS lisinopril 10 mg tablet 1 tab PO DAILY Label Comments: TAKE 1 TABLET BY MOUTH ONCE DAILY FOR 30 DAYS Primary Care Provider: Bryson Hernandez Chi Referrals: Bryson Hernandez Chi, MD [Primary Care Provider] - Disposition Disposition: Acute Care [facility]
--- NOTE | 2021-11-05 13:22 | ED.RN ---
SYNCOPE WHILE IN IMAGING. PT ALERT AND ORIENTED AT THIS TIME. PROVIDER AWARE.
[2021-11-05 13:32] LABS: Absolute Lymphocyte Count 2.22 X10^3/uL (0.83-4.51); Basophil% 1.2 % (0-1); Eosinophil# 0.27 X10^3/uL; Eosinophils% 3.2 % (0-5); Hematocrit 36.3 % (37-47); Lymphocyte # 2.22 X10^3/ul (0.83-4.51); Lymphocyte % 26.7 % (19-41); Mean Corp Hgb Conc 33.1 g/dL (32-36); Mean Corpuscular Hgb 29.3 pg (27.0-32.0); Mean Corpuscular Volume 88.5 fL (81-99); Mean Platelet Vol. 11.3 fl (6.2-12.0); Monocyte# 0.68 X10^3/uL; Monocyte% 8.2 % (0-10); NRBC Flagged by Analyzer 0 % (0-5); Neutrophil # 5.03 X10^3/uL (2.7-7.7); Neutrophil % 60.3 % (47-70); Platelet Count 196 K/mm3 (150-450); RBC Distribution Width CV 14.3 % (11.6-14.6); White Blood Count 8.3 K/mm3 (4.4-11.0)
[2021-11-05 13:40] LABS: Anion Gap 4 (5-15); BUN 35 mg/dL (7-18); BUN/Creat Ratio 20.2 RATIO (10-20); Calcium,Total 9.1 mg/dL (8.5-10.1); Chloride 106 mmol/L (98-107); Creatinine, Serum 1.73 mg/dL (0.55-1.02); EST Glomerular Filtration Rate 30 mL/min (>60); Est Glom Filt Rate - Afr Amer 37 mL/min (>60); Estimated Creatinine Clearance 25.49 ml/min; Glucose 128 mg/dL (74-106); Potassium 5.5 mmol/L (3.5-5.1); Sodium Level 137 mmol/L (136-145)
--- NOTE | 2021-11-05 13:56 | CT_ITS ---
STUDY: CT SCAN RIGHT HIP WITHOUT CONTRAST DEMONSTRATION. REASON FOR EXAM: 76-year-old female patient with history of right hip pain., RADIATION DOSAGE (If Supplied By Facility): CTDIvol = ( 37.07 ) mGy, DLP = ( 1231.06 ) mGycm. Individualized dose optimization techniques were used for this CT.? TECHNIQUE: Multiple axial tomographic images of the right hip joint were obtained without intravenous contrast demonstration. Coronal and sagittal reconstruction was obtained as well. COMPARISON: Comparison is made with prior radiograph done earlier today. FINDINGS: There is a marked degree of joint space narrowing of the right hip joint with a subchondral geodes in the acetabulum and femoral head. This is suggestive of avascular necrosis. There is also evidence of spur formation on the superior lateral aspect of the right femoral head. I suspect a subtle nondisplaced right intertrochanteric fracture. CT/Extremity Lower without Contra IMPRESSION: Findings suggestive of a subtle nondisplaced intertrochanteric fracture. Marked degree of osteoarthritis involving the right hip joint with possible avascular necrosis. Electronically Signed: Avinash Swift MD at 15:05 EDT ,
[2021-11-05 14:28] LABS: Troponin-I HS 8 pg/mL (3.0-54.0)
[2021-11-05] MEDS: Ondansetron ODT 4 MG Tablet PO (15:28)
[2021-11-05] MEDS: oxyCODONE 5 MG Tablet PO (15:29)
--- NOTE | 2021-11-05 16:56 | ED.RN ---
report given to BILLY Moseley
--- NOTE | 2021-11-05 17:49 | ED.RN ---
ems in the department
== END 2021-11-05 18:03 | disposition short-term general hospital (02) ==
PROVIDERS: Physician Assistant; Emergency Provider Emergency Medicine; PCP Family Medicine Geriatric Medicine; Visit Provider Emergency Medicine
DX: S72.141A Displaced intertrochanteric fracture of right femur, initial encounter for closed fracture (principal); S80.211A Abrasion, right knee, initial encounter; I10 Essential (primary) hypertension; Z79.899 Other long term (current) drug therapy; W19.XXXA Unspecified fall, initial encounter
CPT/HCPCS: 73502; 73700; 80048; 84484; 85025; 93005; 99283

== ENCOUNTER 2021-11-09 22:15 | Inpatient (IN) | payer MEDICARE, SELFPAY ==
[2021-11-09 22:31] VITALS: BMI 35.4
[2021-11-09 22:40] VITALS: RESP 16; O2SAT 92
[2021-11-09 22:49] VITALS: BP 149/66; PULSE 81; RESP 16; TEMP 36.2
[2021-11-10] MEDS: oxyCODONE 5 MG Tablet PO ×3 (04:03→20:43)
[2021-11-10] MEDS: Citalopram 10 MG Tablet PO (05:22)
[2021-11-10] MEDS: Pantoprazole Sodium 40 MG Tablet PO (05:22)
[2021-11-10] MEDS: Pregabalin 75 MG Capsule 150 MG PO ×3 (05:22→20:37)
[2021-11-10] MEDS: amLODIPine 5 MG Tablet PO (05:23)
[2021-11-10] MEDS: Isosorbide Mononitrate 30 MG Tablet PO (05:23)
[2021-11-10] MEDS: Lisinopril 10 MG Tablet PO (05:23)
[2021-11-10] MEDS: Enoxaparin 40 MG/0.4 ML Syringe SC (05:25)
[2021-11-10 05:51] LABS: Absolute Lymphocyte Count 2.29 X10^3/uL (0.83-4.51); Basophil# 0.08 X10^3/uL; Basophil% 0.8 % (0-1); Eosinophil# 0.39 X10^3/uL; Eosinophils% 3.9 % (0-5); Hematocrit 32.6 % (37-47); Hemoglobin 10.7 g/dL (12.0-15.0); Lymphocyte # 2.29 X10^3/ul (0.83-4.51); Lymphocyte % 22.7 % (19-41); Mean Corp Hgb Conc 32.8 g/dL (32-36); Mean Corpuscular Volume 88.3 fL (81-99); Mean Platelet Vol. 11.3 fl (6.2-12.0); Monocyte# 1.25 X10^3/uL; Monocyte% 12.4 % (0-10); NRBC Flagged by Analyzer 0 % (0-5); Neutrophil % 59.4 % (47-70); Platelet Count 157 K/mm3 (150-450); RBC Distribution Width SD 44.7 fl (35.1-43.9); Red Blood Count 3.69 M/mm3 (4.2-5.4); White Blood Count 10.1 K/mm3 (4.4-11.0)
[2021-11-10 06:31] LABS: BUN 23 mg/dL (7-18); BUN/Creat Ratio 24.7 RATIO (10-20); Calcium,Total 8.9 mg/dL (8.5-10.1); Chloride 107 mmol/L (98-107); Creatinine, Serum 0.93 mg/dL (0.55-1.02); EST Glomerular Filtration Rate 62 mL/min (>60); Est Glom Filt Rate - Afr Amer 75 mL/min (>60); Estimated Creatinine Clearance 47.42 ml/min; Glucose 143 mg/dL (74-106); Potassium 3.7 mmol/L (3.5-5.1); Sodium Level 140 mmol/L (136-145)
[2021-11-10 06:32] LABS: Anion Gap 5 (5-15)
[2021-11-10 06:45] LABS: Bedside Glucose 142 mg/dL (74-106)
--- NOTE | 2021-11-10 07:43 | HP.PCM_ITS ---
[facility] - General General Date of Admission: 11/09/21 Date of Service: 11/10/21 Chief Complaint: Here for rehab. HPI Narrative 11/05/2021 AMAYA EDWARDS, is a 76 Female who presents to [facility] Emergency Department with fall. 11/05/2021 EKG normal sinus rhythm, left bundle branch block. Right hip injury, in garage leaning over to remove tarp covering cat bowl. She has 2 dozen cats. Lightheaded, fell on right side. X-ray showed right hip fracture, Potassium 5.5 IV fluids, Percocet given. Orthopedics recommended transfer to tertiary center. Transfer to [facility]. 11/05/2021 Admit to [facility]. 11/07/2021 Ortho performed ORIF right hip fracture. PT/OT, Incentive spirometer, pain control. Lovenox 40mg sc daily x 21 days DVT prophylaxis. Ancef given postoperatively. 11/08/2021 Doing well. 11/09/2021 Admit to TCU with debility, here for rehabilitation, strengthening, prior to discharge home with family. [facility] Medical History (Updated 11/10/21 @ 07:[address] Bryson Hernandez MD) Chronic kidney disease, stage 3b Chronic pain Coronary artery disease Debility Depression Diabetes mellitus Diabetic polyneuropathy Gastroesophageal reflux disease Hyperkalemia Hyperlipidemia Hypertension Hypertension Home Medications isosorbide mononitrate 30 mg tablet,extended release 24 hr 1 tab PO DAILY heart 11/05/21 [History Last Taken Unknown] lisinopril 10 mg tablet 1 tab PO DAILY blood pressure 11/05/21 [History Last Taken Unknown] omeprazole 40 mg capsule,delayed release 1 cap PO DAILY reflux 11/05/21 [History Last Taken Unknown] tramadol 50 mg tablet 100 tab PO TID 11/05/21 [History Last Taken Unknown] acetaminophen 500 mg tablet 1,000 mg PO Q6H PRN Pain 11/09/21 [History Last Taken Unknown] citalopram 10 mg tablet (Celexa) 10 mg PO DAILY depression 11/09/21 [History La st Taken Unknown] enoxaparin 40 mg/0.4 mL subcutaneous syringe 40 mg subcut DAILY blood thinner 11/09/21 [History Last Taken Unknown] metformin 500 mg tablet 500 mg PO BID blood pressure 11/09/21 [History Last Taken Unknown] nitroglycerin 0.4 mg sublingual tablet 0.4 mg sublingual Q5M PRN Chest Pain 11/09/21 [History Last Taken Unknown] oxycodone 5 mg tablet mg PO Q6H PRN Pain 11/09/21 [History Last Taken Unknown] pregabalin 150 mg capsule 150 mg PO TID pain 11/09/21 [History Last Taken Unknown] sennosides 8.6 mg capsule (senna) 8.6 mg PO BID stool softener 11/09/21 [History Last Taken Unknown] Allergy/AdvReac Type Severity Reaction Status Date / Time codeine Allergy Other Verified 11/05/21 12:41 [id number] Reductase Allergy Other Verified 11/05/21 12:41 Inhibitor Sulfa (Sulfonamide Allergy Other Verified 11/05/21 12:41 Antibiotics) Surgical History (Updated 11/10/21 @ 07:[address] Bryson Hernandez MD) H/O cervical spine surgery History of appendectomy History of cataract surgery History of hysterectomy Social History (Updated 11/10/21 @ 07:[address] Bryson Hernandez MD) household members: family Smoking Status: Former smoker alcohol intake: never substance use type: does not use ROS Constitutional Constitutional: Denies chills, fever(s) or weight gain ENT HEENT: Denies headache(s), nasal congestion or nasal discharge Cardiovascular Cardiovascular: Denies chest pain or palpitations Respiratory/Chest Respiratory/Chest: Denies cough, excessive phlegm production or shortness of breath with exertion Gastrointestinal Gastrointestinal: Denies abdominal pain, nausea or vomiting Genitourinary Genitourinary: Denies dysuria Musculoskeletal Musculoskeletal: Denies joint pain or joint swelling Integumentary Integumentary: Denies rash or wounds Neurologic Neurologic: Denies focal weakness, numbness or tingling Psychiatric Psychiatric: Denies anxiety, auditory hallucinations, depression, homicidal ideation or suicidal ideation Vital Signs Vital Signs Vital Signs: 11/09/21 22:49 11/09/21 22:40 Temperature 97.2 F L Temperature Source Temporal Pulse Rate 81 Pulse Rhythm Regular Pulse Strength Normal (2+) Respiratory Rate 16 16 Respiratory Effort Normal Non-Labored Respiratory Depth Normal Respiratory Pattern Normal Blood Pressure 149/66 H Blood Pressure Mean 93 Blood Pressure Source Monitor Blood Pressure Position Supine Blood Pressure Location Left Arm Pulse Ox 92 Oxygen Delivery Method Room Air Room Air Weight Weight: 99.6 kg Body Mass Index (BMI) 35.4 Physical Exam Const alert General Appearance: cooperative HEENT normocephalic Eyes PERRL and EOMs intact bilaterally Neck supple, no JVD and no carotid bruits Resp normal respiratory effort, normal air movement and clear to auscultation bilaterally Cardio regular rate and regular rhythm GI normal to inspection, nondistended, normoactive bowel sounds, non-tender and non-distended Extremity normal capillary refill General Extremity: Negative for edema Skin no rashes or lesions noted General Skin Exam: no breakdown Psych affect normal Appearance: appropriate Results Lab / Micro Data Result Diagrams: 11/10/21 05:19 11/10/21 05:19 Labs: Laboratory Results - last 24 hr 11/10/21 05:19: WBC 10.1, RBC 3.69 L, Hgb 10.7 L, Hct 32.6 L, MCV 88.3, MCH 29.0, MCHC 32.8, RDW Std Deviation 44.7 H, RDW Coeff of Sarah 14.0, Plt Count 157, MPV 11.3, Immature Gran % (Auto) 0.800, Neut % (Auto) 59.4, Lymph % (Auto) 22.7, [place] % (Auto) 12.4 H, Eos % (Auto) 3.9, Baso % (Auto) 0.8, Absolute Neuts (auto) 6.0, Absolute Lymphs (auto) 2.29, Nucleated RBC % 0 11/10/21 05:19: Sodium 140, Potassium 3.7, Chloride 107, Carbon Dioxide 28.0, Anion Gap 5, BUN 23 H, Creatinine 0.93, Estim Creat Clear Calc 47.42, Est GFR (MDRD) Af Amer 75, Est GFR (MDRD) Non-Af 62, BUN/Creatinine Ratio 24.7 H, Glucose 143 H, Calcium 8.9 11/10/21 06:31: POC Glucose 142 H Micro: Microbiology 11/10/21 04:00 Nasal Secretion SARS-CoV-2 Antigen (Rapid) - Final Assessment & Plan Assessment/Plan (1) Debility: (2) Fall: (3) Closed intertrochanteric fracture of right hip: (4) Hypertension: (5) Coronary artery disease: (6) Chronic kidney disease, stage 3b: (7) Diabetes mellitus: (8) Depression: (9) Chronic pain: (10) Diabetic polyneuropathy: (11) Hyperlipidemia: (12) Gastroesophageal reflux disease: PLAN: Plan 76 year old female with below past medical history hospitalized for right hip fracture, underwent ORIF right hip fracture 11/07/2021, admitted to TCU with debility, here for rehabilitation, strengthening, prior to discharge home with family. * Debility - PT/OT. * Pain - Tylenol 1000mg q6h prn pain (1-3), Oxycodone 5mg q4h prn pain (4-10). * Bowel - Senna/colace 1 tablet bid, Dulcolax 10mg daily prn. * Adult immunization - Administer pneumonia vaccine, covid19 vaccine, flu vaccine as appropriate. * DVT prophylaxis - Lovenox 40mg sc daily thru 12/01/2021. * Hypertension - Coreg 6.25mg bid, Lisinopril 10mg daily, Amlodipine 5mg daily. 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 * Nutrition - Glucerna Shake 120ml po bidcm. * Coronary artery disease - Coreg 6.25mg bid, Lisinopril 10mg daily, Imdur 30mg daily, NTG 0.4mg sl q5m prn. * Diabetes Mellitus II - Metformin 500mg bidcm. * GERD - Pantoprazole 40mg daily * Diabetic polyneuropathy - Lyrica 150mg tid.
[2021-11-10] MEDS: Glucerna Shake 120 ML LIQUID PO ×2 (07:52→17:29)
[2021-11-10] MEDS: Carvedilol 6.25 MG Tablet PO ×2 (07:52→17:29)
--- NOTE | 2021-11-10 09:26 | NURSING ---
Patient refused metformin and stool softener for this nurse this morning. Patient states that she is allergic to metformin and had some loose stools this morning. made aware.
--- NOTE | 2021-11-10 11:24 | NURSING ---
notified dr singer at this time that pt states she is allergic to metformin, refused to take. pt states developed hives after taking one dose in past.
[2021-11-10 13:24] VITALS: BP 137/50; PULSE 83; RESP 16; TEMP 35.7; O2SAT 91
--- NOTE | 2021-11-10 16:07 | CHAPLAIN ---
Type of Pastoral Visit _x__ Initial Visit ___ Follow-up Visit ___ On-call Visit ___ General Patient Visit ___ Spiritual Assessment ___ Family Conference ___ Bereavement ___ Rapid Response ___ Code Blue ___ Other (describe below) Pastoral Care Referral From _x__ Patient ___ Family ___ Nurse ___ Physician ___ Digital Media Buyer ___ Screw Supervisor ___ Other (describe below) Sacrament/Intervention _x__ Active listening ___ Anointing ___ Bahai ___ Bereavement ___ Communion ___ Freda exploration ___ _x__ Life review _x__ Prayer ___ Reconciliation ___ Sacrament of Sick _x__ Supportive presence ___ Wedding ___ Other (describe below) Pastoral Comments patient is talkative and shows her humor; pt has family members present and all are welcoming of spiritual care support; pt concern is that she will have a second surgery to fix her hip after her leg heals; pt realizes long recovery is ahead; pt has good family support however she is as recently as last year; 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
--- NOTE | 2021-11-10 17:11 | CASEMGMT ---
Social Work Note - admission note TCU Met with patient to complete admission assessment. Introduced to self and role, after reviewing record. Patient wishes to have daughter Marry as emergency contact and remain involved in discharge planning. Discussed code status. Patient wants all treatment, including intubation, but does not want CPR. Patient reports does not want to take chance of broken ribs and the pain that would come along with that. MOLST form communicated per TCU protocols to the doctor. Patient asked about Medicare benefit and educated as able. Patient's goal is to return home to daughter's home where patient has been residing this last year. Also in the home is patient's son-in-law and 2 granddaughters. Patient would be open to HHC if needed and expressed motivation to feel better and get better. Note, patient spent much time talking about life changes and losses throughout her life, including losses and changes in the last year. Broached grief and validated patient's feelings and reactions as common to the losses and changes patient has experienced. Allowed patient time to ventilate feelings and thoughts, emotional support and reflection offered. Patient able to express thanks and appreciation for being given time to talk about emotions. Social work to follow and assist as needs arise during TCU stay. Handoff given to usual TCU social work instructor, Deepika Poe to provide advanced directive information to the patient, so that patient can review with daughter. Plan: Patient planning for home with family support, and HHC if qualifies. -MARYBEL Gilbert, MAYRA
[2021-11-10 21:31] LABS: Bedside Glucose 190 mg/dL (74-106)
[2021-11-11] MEDS: amLODIPine 5 MG Tablet PO (04:34)
[2021-11-11] MEDS: Isosorbide Mononitrate 30 MG Tablet PO (04:34)
[2021-11-11] MEDS: Pregabalin 75 MG Capsule 150 MG PO ×3 (04:34→20:43)
[2021-11-11] MEDS: Enoxaparin 40 MG/0.4 ML Syringe SC (04:34)
[2021-11-11] MEDS: Lisinopril 10 MG Tablet PO (04:34)
[2021-11-11] MEDS: Citalopram 10 MG Tablet PO (04:34)
[2021-11-11] MEDS: Pantoprazole Sodium 40 MG Tablet PO (04:34)
[2021-11-11 04:47] VITALS: BP 130/67; PULSE 73
[2021-11-11 06:25] LABS: Bedside Glucose 158 mg/dL (74-106)
--- NOTE | 2021-11-11 08:09 | NURSING ---
Patient has heart monitor at nurse's station. Company to come in and explain device and how it works, as well as have it appropriately placed on patient. No given time of arrival.
--- NOTE | 2021-11-11 08:12 | PHA.CONS_ITS ---
TCU RX Drug Regimen Review Subjective: TCU Admission. 76 YOF presented to the ER with a fall. Transferred to [facility] for ORIF right hip fracture 11/07/21. Admitted to TCU with debility for strengthening and rehabilitation. Objective: Allergies codeine Allergy (Verified 11/05/21 12:41) Other metformin Allergy (Verified 11/10/21 11:22) Hives [id number] Reductase Inhibitor Allergy (Verified 11/05/21 12:41) Other Sulfa (Sulfonamide Antibiotics) Allergy (Verified 11/05/21 12:41) Other Current Medications Generic Name Dose Route Start Last Admin Trade Name Freq PRN Reason Stop Dose Admin Acetaminophen 1,000 mg 11/10/21 08:00 Acetaminophen 500 Mg Tablet PO Q6H PRN PRN Pain Score 1-3 Amlodipine Besylate 5 mg 11/10/21 06:00 11/11/21 04:34 Amlodipine 5 Mg Tablet PO 5 mg DAILY TYRESE Administration Bisacodyl 10 mg 11/10/21 07:59 Bisacodyl 5 Mg Tablet PO DAILY PRN PRN Constipation Carvedilol 6.25 mg 11/10/21 08:00 11/10/21 17:29 Carvedilol 6.25 Mg Tablet PO 6.25 mg BIDCM TYRESE Administration Citalopram Hydrobromide 10 mg 11/10/21 06:00 11/11/21 04:34 Citalopram 10 Mg Tablet PO 10 mg DAILY TYRESE Administration Enoxaparin Sodium 40 mg 11/10/21 06:00 11/11/21 04:34 Enoxaparin 40 Mg/0.4 Ml Syringe SC 12/01/21 06:01 40 mg DAILY TYRESE Administration Isosorbide Mononitrate 30 mg 11/10/21 06:00 11/11/21 04:34 Isosorbide Mononitrate 30 Mg Tablet PO 30 mg DAILY TYRESE Administration Lisinopril 10 mg 11/10/21 06:00 11/11/21 04:34 Lisinopril 10 Mg Tablet PO 10 mg DAILY TYRESE Administration Nitroglycerin 0.4 mg 11/10/21 00:38 Nitroglycerin (Inpatient Use) 0.4 Mg Tab.Subl SL Q5M PRN CARDIAC/CHEST PAIN Nutritional Formula (Lactose Free) 120 ml 11/10/21 08:00 06/21/22 17:29 Glucerna Shake 120 Ml Liquid PO 120 ml BIDCM TYRESE Administration Oxycodone HCl 5 mg 11/10/21 08:00 11/10/21 20:43 Oxycodone 5 Mg Tablet PO 5 mg Q4H PRN PRN Administration Pain Score 4-10 Pantoprazole Sodium 40 mg 11/10/21 06:00 11/11/21 04:34 Pantoprazole Sodium 40 Mg Tablet PO 40 mg DAILY TYRESE Administration Pregabalin 150 mg 11/10/21 06:00 11/11/21 04:34 Pregabalin 75 Mg Capsule PO 150 mg TID TYRESE Administration Senna/Docusate Sodium 1 tablet 11/10/21 08:00 11/11/21 04:48 Senna/Docusate Sodium 1 Tablet PO Not Given BID TYRESE Tuberculin PPD 0.1 ml 11/11/21 10:00 Tuberculin,Purif.Prot.Deriv. 50 Tu/Ml Vial ID 11/11/21 10:01 X1 ONE Tuberculin PPD 0.1 ml 11/18/21 10:00 Tuberculin,Purif.Prot.Deriv. 50 Tu/Ml Vial ID 11/18/21 10:01 X1 ONE Problem List (Last Updated 11/10/21 @ 07:[address] Bryson Hernandez MD) Hyperlipidemia (Acute) Diabetic polyneuropathy (Acute) Chronic pain (Chronic) Depression (Acute) Diabetes mellitus (Acute) Chronic kidney disease, stage 3b (Acute) Gastroesophageal reflux disease (Acute) Coronary artery disease (Acute) Hypertension (Chronic) Debility (Acute) Fall (Acute) Closed intertrochanteric fracture of right hip (Acute) Vital Signs Temp Pulse Resp BP Pulse Ox 96.3 F L 73 16 130/67 H 91 11/10/21 13:24 11/11/21 04:47 11/10/21 13:24 11/11/21 04:47 11/10/21 13:24 Oxygen Delivery Method Room Air Weight: 96.797 kg Body Mass Index (BMI) 35.4 Sodium 140 mmol/L (136-145) 11/10/21 05:19 Potassium 3.7 mmol/L (3.5-5.1) 11/10/21 05:19 Chloride 107 mmol/L (98-107) 11/10/21 05:19 Carbon Dioxide 28.0 mmol/L (21.0-32.0) 11/10/21 05:19 Anion Gap 5 (5-15) 11/10/21 05:19 BUN 23 mg/dL (7-18) H 11/10/21 05:19 Creatinine 0.93 mg/dL (0.55-1.02) 11/10/21 05:19 Est GFR (MDRD) Af Amer 75 mL/min (>60) 11/10/21 05:19 Est GFR (MDRD) Non-Af 62 mL/min (>60) 11/10/21 05:19 BUN/Creatinine Ratio 24.7 RATIO (10-20) H 11/10/21 05:19 Glucose 143 mg/dL (74-106) H 11/10/21 05:19 Assessment/Plan: 1. Pain: acetaminophen 1000mg PO Q6H PRN pain 1-3 and oxycodone 5mg PO Q4H PRN pain 4-10. Resident has not had any doses of acetaminophen but has had 2 doses of oxycodone for pain scores of 6-8 in the hip. Please continue to monitor for increased pain, PRN usage, constipation and respiratory depression. 2. Bowel: senna/docusate 1T PO BID and bisacodyl 10mg PO daily PRN constipation. Resident has not had a documented bowel movement yet but per nursing note resident has reported loose stools so she refused senna/docusate. Please consider changing from scheduled to PRN constipation if clinically appropriate. Thanks. Please continue to monitor for constipation and PRN usage. Please see below for recommendation. 3. DVT prophylaxis: enoxaparin 40mg SC daily thru 12/01/21. Please continue to monitor for S/S of bleeding/DVT, hemoglobin (last 10.7g/dL), platelets (last 157,000) and renal function. 4. Hypertension/CAD: carvedilol 6.25mg PO BIDCM, lisinopril 10mg PO daily, amlodipine 5mg PO daily, isosorbide mononitrate 30mg PO daily and nitroglycerin 0.4mg SL Q5M PRN chest pain. Please continue to monitor BP (last 130/67), HR (last 73), potassium (last 3.7mmol/L), cough, renal function, chest pain and swelling. 5. GERD: pantoprazole 40mg PO daily. Please continue to monitor for S/S of GERD. Per nursing note, resident reported loose stool. Please continue to monitor for diarrhea as this medication is on the BEERs list for risk of C. difficile when used for longer than 8 weeks. Pantoprazole is also on the BEERs list for bone loss and fractures. Assessment/Plan for indications treated with psychotropic medications: 1. Depression: citalopram 10mg PO daily. Please see physician note regarding GDR. Citalopram is on the BEERs list for falls. 2. Diabetic polyneuropathy: pregabalin 150mg PO TID. This medication is on the BEERs list for falls. Max dose for resident's renal function (CrCl 59.4 mL/min using adjusted BW) is 75-300 mg/day in 2-3 divided doses. Resident is receiving total dose of 450mg/day and had a fall at this dose. Please consider decreasing dose to 75-100mg PO TID if clinically appropriate. Thanks. Please see below for recommendation. Medical chart and medication regimen reviewed. The following medication irregularities or issues were identified: *1. Please consider changing senna/docusate from scheduled to PRN constipation if clinically appropriate. Resident is refusing doses due to loose stool. Thanks. *2. Please consider changing pregabalin from 150mg PO TID to 75-100mg PO TID based on patient's renal function if clinically appropriate. This is a BEERs list medication for falls. Resident is on 2 BEERs list medications for falls and 1 for fractures. Thanks. Date of Note:: 11/11/21
[2021-11-11] MEDS: Carvedilol 6.25 MG Tablet PO ×2 (08:15→17:26)
[2021-11-11] MEDS: oxyCODONE 5 MG Tablet PO (11:29)
[2021-11-11] MEDS: Tuberculin,Purif.prot.deriv. 50 TU/ML Vial 0.1 ML ID (11:30)
--- NOTE | 2021-11-11 15:09 | CASEMGMT ---
Social Work Followed up with patient to answer several questions. Explained [facility] insurance. Update was sent today and received with NRD 11/20, EDC 11/24. Explained and provided insurance are plan. Pt expressed understanding. Provided counseling resources. Confirmed pt will like to complete advanced directives naming dtr as HCPOA. SW to complete prior to DC as time allows. Pt appreciative. Deepika Gonzalez, OPHTHALMIC SURGICAL ASSISTANT PEDIATRICIAN ACTIVE PRACTICE
[2021-11-11 15:14] VITALS: BP 104/55; PULSE 64; RESP 16; TEMP 36.1; O2SAT 91
--- NOTE | 2021-11-11 15:15 | NURSING ---
patient notified of positive staff member for covid. deferred this RN from calling family to notify.
[2021-11-11] MEDS: Glucerna Shake 120 ML LIQUID PO (17:28)
--- NOTE | 2021-11-11 17:37 | CASEMGMT ---
Social Work Completed living will and HCPOA. Original and copy provided to pt. Copies placed on chart. Deepika Gonzalez MSW NUCLEAR TECHNICIAN
[2021-11-11 20:46] VITALS: PULSE 74; RESP 16; O2SAT 96
--- NOTE | 2021-11-11 23:20 | NURSING ---
Asked patient about hear monitor, she said she didn't care about it and doesn't want it set up. She said I don't care if I of a heart attack. I don't want to wear it.
[2021-11-12 05:58] VITALS: BP 129/70; PULSE 84
[2021-11-12] MEDS: Pregabalin 75 MG Capsule 150 MG PO ×3 (05:59→21:34)
[2021-11-12] MEDS: amLODIPine 5 MG Tablet PO (06:00)
[2021-11-12] MEDS: Senna/Docusate Sodium 1 Tablet PO ×2 (06:00→17:01)
[2021-11-12] MEDS: Lisinopril 10 MG Tablet PO (06:00)
[2021-11-12] MEDS: Isosorbide Mononitrate 30 MG Tablet PO (06:00)
[2021-11-12] MEDS: Enoxaparin 40 MG/0.4 ML Syringe SC (06:00)
[2021-11-12 06:21] LABS: Bedside Glucose 144 mg/dL (74-106)
[2021-11-12] MEDS: Carvedilol 6.25 MG Tablet PO ×2 (08:13→17:01)
[2021-11-12] MEDS: oxyCODONE 5 MG Tablet PO ×3 (08:24→21:34)
[2021-11-12 15:02] VITALS: BP 116/78; PULSE 109; RESP 17; TEMP 35.9; O2SAT 98
[2021-11-12] MEDS: OMEPRAZOLE 40 MG CAPSULE.DR PO (17:00)
[2021-11-12] MEDS: Glucerna Shake 120 ML LIQUID PO (17:00)
[2021-11-12] MEDS: Citalopram 10 MG Tablet PO (21:35)
[2021-11-13] MEDS: Isosorbide Mononitrate 30 MG Tablet PO (05:40)
[2021-11-13] MEDS: amLODIPine 5 MG Tablet PO (05:40)
[2021-11-13] MEDS: OMEPRAZOLE 40 MG CAPSULE.DR PO ×2 (05:40→17:17)
[2021-11-13] MEDS: Pregabalin 75 MG Capsule 150 MG PO ×3 (05:40→20:50)
[2021-11-13] MEDS: Lisinopril 10 MG Tablet PO (05:40)
[2021-11-13] MEDS: Enoxaparin 40 MG/0.4 ML Syringe SC (05:41)
[2021-11-13 06:20] LABS: Bedside Glucose 133 mg/dL (74-106)
[2021-11-13] MEDS: Carvedilol 6.25 MG Tablet PO ×2 (08:11→17:17)
[2021-11-13] MEDS: oxyCODONE 5 MG Tablet PO ×2 (09:11→20:54)
[2021-11-13 13:41] VITALS: BP 101/45; PULSE 70; RESP 15; TEMP 36.2; O2SAT 90
--- NOTE | 2021-11-13 14:13 | CHAPLAIN ---
Type of Pastoral Visit ___ Initial Visit _x__ Follow-up Visit ___ On-call Visit ___ General Patient Visit ___ Spiritual Assessment ___ Family Conference ___ Bereavement ___ Rapid Response ___ Code Blue ___ Other (describe below) Pastoral Care Referral From _x__ Patient ___ Family ___ Nurse ___ Physician _x__ Jewel Gauger ___ Commercial Correspondent ___ Other (describe below) Sacrament/Intervention _x__ Active listening ___ Anointing ___ Confucianism ___ Bereavement ___ Communion ___ Freda exploration ___ _x__ Life review _x__ Prayer ___ Reconciliation ___ Sacrament of Sick _x__ Supportive presence ___ Wedding ___ Other (describe below) Pastoral Comments follow up visit made as welcomed by patient and as indicated by need from SW; pt is alone in room this time; pt is watching TV and is engaged in the political events of the day; pt makes her political opinions known and shows some frustrations with the events of the day; pt speaks of a hard morning with much activity but also sees progress and is hopeful about more improvements; pt makes comments about family members; pt has some family that she is estranged from and other family members that are demanding; pt states she is trying to accommodate and be understanding with family; pt acknowledges that she was not an active or involved grandmother with the adult grandchildren with whom she now lives with and that this is an adjustment for all; listening, affirmation, and prayer support given; pt states she has no other needs at this time
--- NOTE | 2021-11-13 16:28 | CASEMGMT ---
Social Work Note BIMS and PHQ9 completed for MDS assessment. SW was updated earlier that pt has an appointment scheduled for Tuesday and pt's daughter had transportation concerns. SW reviewed chart, Per PT/OT pt is contact guard for transfers/bed mobility. SW spoke with pt regarding transportation concerns. Pt states that her appointment is Tuesday at 3:25pm and she has to be there 30 minutes early. Pt states the appointment is at [facility] and it is an Ortho Appointment for follow up. SW spoke with pt regarding her concerns. Pt states that her daughter is scared that pt will fall. Pt states that she is confident she will be able to handle transportation. Pt states that she knows that the doctors office will have a wheelchair for her to use and pt states when she spoke with the doctor's office, they confirmed they will have wheelchairs available in the doctor's office for pt to use. Pt states she has no concerns with her daughter transporting pt to doctor's appointment. Pt states that she has a [employer] Terrain and her daughter has a jeep and pt states she does better with her [employer] but states her daughter will be bringing her jeep to the appointment. Pt states that she feels she is able to tell her daughter that she feels confident in her daughter transporting pt to the appointment Tuesday. SW informed pt that another option would be for her to call her insurance to see about arranging a wheelchair van for transportation. Pt states it probably wouldn't be covered under her insurance. SW informed pt that this worker is not sure, typically wheelchair vans are covered under Medicaid. SW explained that with it being late on Tuesday and her appointment is Tuesday, this worker is not sure it could be arranged. Pt again states that she feels confident in her daughter transporting her to her appointment Tuesday and she has no concerns with it. SW asked pt about her not wearing her heart monitor. Pt states that she got the heart monitor from [employer] and states that she took herself off from wearing the monitor. Pt states that she had it on but it wouldn't stay on and wouldn't work. Pt states that she called [employer] to get it fixed and states they were going to send someone the next day to fix it, but they never came. Pt states if they are not worried about it then I am not worried about it. Per PHQ9, pt answered no to any thoughts that she would be better off or hurting herself in anyway. (Pt scored 0 for this question). Dianne Daniels POPPED CORN OVEN ATTENDANT, TIE PULLER
[2021-11-13] MEDS: Glucerna Shake 120 ML LIQUID PO (17:19)
[2021-11-13 20:05] VITALS: O2SAT 96
[2021-11-13] MEDS: Citalopram 10 MG Tablet PO (20:50)
[2021-11-14 05:40] VITALS: BP 126/48; PULSE 83
[2021-11-14] MEDS: OMEPRAZOLE 40 MG CAPSULE.DR PO ×2 (05:44→18:45)
[2021-11-14] MEDS: oxyCODONE 5 MG Tablet PO ×3 (05:44→21:38)
[2021-11-14] MEDS: Isosorbide Mononitrate 30 MG Tablet PO (05:44)
[2021-11-14] MEDS: amLODIPine 5 MG Tablet PO (05:44)
[2021-11-14] MEDS: Senna/Docusate Sodium 1 Tablet PO (05:44)
[2021-11-14] MEDS: Lisinopril 10 MG Tablet PO (05:44)
[2021-11-14] MEDS: Pregabalin 75 MG Capsule 150 MG PO ×3 (05:44→21:38)
[2021-11-14] MEDS: Enoxaparin 40 MG/0.4 ML Syringe SC (05:45)
[2021-11-14 06:16] LABS: Bedside Glucose 169 mg/dL (74-106)
[2021-11-14 06:26] VITALS: O2SAT 94
[2021-11-14] MEDS: Glucerna Shake 120 ML LIQUID PO ×2 (08:57→16:33)
[2021-11-14] MEDS: Carvedilol 6.25 MG Tablet PO ×2 (08:57→16:33)
[2021-11-14] MEDS: Menthol/Lanolin/Calamine/Znox 113 GM Tube 1 APPLIC TOPICAL ×2 (08:58→21:41)
[2021-11-14] MEDS: Acetaminophen 500 MG Tablet 1000 MG PO ×2 (13:44→21:38)
[2021-11-14 14:18] VITALS: BP 113/52; PULSE 80; RESP 16; TEMP 36.4; O2SAT 90
[2021-11-14] MEDS: Citalopram 10 MG Tablet PO (21:37)
[2021-11-15] MEDS: Pregabalin 75 MG Capsule 150 MG PO ×3 (06:06→22:08)
[2021-11-15] MEDS: Lisinopril 10 MG Tablet PO (06:07)
[2021-11-15] MEDS: Enoxaparin 40 MG/0.4 ML Syringe SC (06:07)
[2021-11-15] MEDS: amLODIPine 5 MG Tablet PO (06:07)
[2021-11-15] MEDS: Isosorbide Mononitrate 30 MG Tablet PO (06:07)
[2021-11-15] MEDS: OMEPRAZOLE 40 MG CAPSULE.DR PO ×2 (06:08→16:45)
[2021-11-15 06:16] LABS: Bedside Glucose 162 mg/dL (74-106)
[2021-11-15] MEDS: oxyCODONE 5 MG Tablet PO ×2 (08:30→22:07)
[2021-11-15] MEDS: Acetaminophen 500 MG Tablet 1000 MG PO ×2 (08:31→22:07)
[2021-11-15] MEDS: Carvedilol 6.25 MG Tablet PO ×2 (08:32→16:46)
[2021-11-15] MEDS: Glucerna Shake 120 ML LIQUID PO ×2 (08:33→16:46)
[2021-11-15] MEDS: Menthol/Lanolin/Calamine/Znox 113 GM Tube 1 APPLIC TOPICAL ×2 (10:52→22:08)
[2021-11-15 16:00] VITALS: BP 104/53; PULSE 77; RESP 18; TEMP 36.3; O2SAT 90
[2021-11-15] MEDS: Citalopram 10 MG Tablet PO (22:07)
[2021-11-16] MEDS: Enoxaparin 40 MG/0.4 ML Syringe SC (05:29)
[2021-11-16] MEDS: Pregabalin 75 MG Capsule 150 MG PO ×3 (05:29→21:08)
[2021-11-16] MEDS: OMEPRAZOLE 40 MG CAPSULE.DR PO ×2 (05:30→19:27)
[2021-11-16] MEDS: Isosorbide Mononitrate 30 MG Tablet PO (05:31)
[2021-11-16 05:39] VITALS: BP 100/50; PULSE 71
--- NOTE | 2021-11-16 05:40 | NURSING ---
Lisinopril and Norvasc held at this time d/t BP 100/50. Will report to oncoming nurse.
[2021-11-16 06:21] LABS: Bedside Glucose 157 mg/dL (74-106)
[2021-11-16] MEDS: Carvedilol 6.25 MG Tablet PO ×2 (08:42→17:47)
[2021-11-16] MEDS: oxyCODONE 5 MG Tablet PO ×3 (09:26→23:07)
[2021-11-16] MEDS: Menthol/Lanolin/Calamine/Znox 113 GM Tube 1 APPLIC TOPICAL ×2 (09:34→21:10)
--- NOTE | 2021-11-16 11:19 | NURSING ---
Assistant Associate Professor Note: Interview and Section F of MDS complete.
[2021-11-16 16:00] VITALS: BP 111/62; PULSE 76; RESP 16; TEMP 36.1; O2SAT 93
[2021-11-16] MEDS: Glucerna Shake 120 ML LIQUID PO (17:47)
[2021-11-16 17:53] VITALS: BP 134/59; PULSE 74
[2021-11-16] MEDS: Citalopram 10 MG Tablet PO (21:08)
[2021-11-16] MEDS: Acetaminophen 500 MG Tablet 1000 MG PO (23:07)
[2021-11-17] VITALS (8 sets, daily range): BP systolic 70–123; BP diastolic 37–61; PULSE 65–76; RESP 16–17; TEMP 35.9; O2SAT 94–95
[2021-11-17 05:43] LABS: Absolute Lymphocyte Count 2.83 X10^3/uL (0.83-4.51); Absolute Neutrophil Count 4.6 X10^3/uL (2.0-7.7); Basophil% 1.1 % (0-1); Eosinophils% 3.4 % (0-5); Hematocrit 31.1 % (37-47); Hemoglobin 10.4 g/dL (12.0-15.0); Lymphocyte # 2.83 X10^3/ul (0.83-4.51); Lymphocyte % 32.2 % (19-41); Mean Corp Hgb Conc 33.4 g/dL (32-36); Mean Corpuscular Hgb 29.7 pg (27.0-32.0); Mean Corpuscular Volume 88.9 fL (81-99); Mean Platelet Vol. 10.8 fl (6.2-12.0); Monocyte# 0.84 X10^3/uL; Monocyte% 9.6 % (0-10); NRBC Flagged by Analyzer 0 % (0-5); Neutrophil # 4.61 X10^3/uL (2.7-7.7); Neutrophil % 52.6 % (47-70); Platelet Count 242 K/mm3 (150-450); RBC Distribution Width CV 14.7 % (11.6-14.6); RBC Distribution Width SD 46.9 fl (35.1-43.9); White Blood Count 8.8 K/mm3 (4.4-11.0)
[2021-11-17 06:10] LABS: Anion Gap 8 (5-15); BUN 27 mg/dL (7-18); Calcium,Total 9.1 mg/dL (8.5-10.1); Chloride 106 mmol/L (98-107); EST Glomerular Filtration Rate 57 mL/min (>60); Est Glom Filt Rate - Afr Amer 69 mL/min (>60); Glucose 178 mg/dL (74-106); Potassium 4.1 mmol/L (3.5-5.1); Sodium Level 139 mmol/L (136-145)
[2021-11-17] MEDS: Lisinopril 10 MG Tablet PO (06:15)
[2021-11-17] MEDS: Pregabalin 75 MG Capsule 150 MG PO ×3 (06:16→22:24)
[2021-11-17] MEDS: Senna/Docusate Sodium 1 Tablet PO (06:16)
[2021-11-17] MEDS: OMEPRAZOLE 40 MG CAPSULE.DR PO ×2 (06:16→17:29)
[2021-11-17] MEDS: amLODIPine 5 MG Tablet PO (06:16)
[2021-11-17] MEDS: Enoxaparin 40 MG/0.4 ML Syringe SC (06:16)
[2021-11-17] MEDS: Isosorbide Mononitrate 30 MG Tablet PO (06:16)
[2021-11-17 06:30] LABS: Bedside Glucose 172 mg/dL (74-106)
[2021-11-17] MEDS: Carvedilol 6.25 MG Tablet PO ×2 (08:15→17:30)
[2021-11-17] MEDS: Menthol/Lanolin/Calamine/Znox 113 GM Tube 1 APPLIC TOPICAL ×2 (08:15→22:26)
[2021-11-17] MEDS: Acetaminophen 500 MG Tablet 1000 MG PO ×2 (08:22→22:25)
[2021-11-17] MEDS: oxyCODONE 5 MG Tablet PO ×2 (08:23→22:25)
[2021-11-17] MEDS: 0.9% Normal Saline 1,000 ML 999 ML IV (09:18)
--- NOTE | 2021-11-17 09:23 | NURSING ---
PT REPORTS FEELING FUZZY, BP NOTED TO BE 80/40 HR=76. DR ROBISON NOTIFIED. NEW ORDERS RECEIVED. PT WILL RECEIVE 1L NS BOLUS, BP RECHECK AFTER BOLUS. WILL CONT TO MONITOR.
--- NOTE | 2021-11-17 10:57 | NURSING ---
JP=402/49, HR=65 AFTER 1L NS BOLUS. PT REPORTS FEELING BETTER. DR ROBISON NOTIFIED, NNO.
[2021-11-17] MEDS: Glucerna Shake 120 ML LIQUID PO (17:28)
[2021-11-17] MEDS: Citalopram 10 MG Tablet PO (22:26)
[2021-11-18] MEDS: Enoxaparin 40 MG/0.4 ML Syringe SC (06:01)
[2021-11-18] MEDS: Lisinopril 5 MG Tablet PO (06:03)
[2021-11-18] MEDS: Isosorbide Mononitrate 30 MG Tablet PO (06:03)
[2021-11-18] MEDS: Senna/Docusate Sodium 1 Tablet PO (06:03)
[2021-11-18] MEDS: OMEPRAZOLE 40 MG CAPSULE.DR PO ×2 (06:04→17:32)
[2021-11-18] MEDS: Pregabalin 75 MG Capsule 150 MG PO ×3 (06:06→21:21)
[2021-11-18 06:45] LABS: Bedside Glucose 123 mg/dL (74-106)
[2021-11-18] MEDS: Glucerna Shake 120 ML LIQUID PO (08:39)
[2021-11-18] MEDS: Menthol/Lanolin/Calamine/Znox 113 GM Tube 1 APPLIC TOPICAL ×2 (11:10→21:20)
[2021-11-18] MEDS: Tuberculin,Purif.prot.deriv. 50 TU/ML Vial 0.1 ML ID (11:10)
--- NOTE | 2021-11-18 14:22 | CASEMGMT ---
Social Work Plan of care meeting held with pt and pt dgt present. PT, OT, adoption worker and activities discussed pt progress. MITZI explained that NRD with insurance is 11/20 with expected d/c on 11/24. Pt plans to return home with daughter at that time and therapy is recommending Home Health PT/OT. Pt will need a FWW at time of discharge. Pt has a shower chair and was inquiring about a BSC. SW informed that this is not covered by insurance but family can pay for this item at drug store or home health store. SW provided pt with list of skilled home health care, private duty home care, [facility] and [facility] information. Pt and dgt requesting referral to [facility]. Referral made via the [facility] Website. Will continue with treatment plan at this time. SW to follow for d/c planning. YAZMIN León
[2021-11-18] MEDS: oxyCODONE 5 MG Tablet PO ×2 (14:46→21:25)
[2021-11-18] MEDS: Carvedilol 6.25 MG Tablet PO (17:31)
[2021-11-18 17:36] VITALS: BP 139/59; PULSE 74; TEMP 37.3
[2021-11-18 21:00] VITALS: PULSE 62; RESP 16; O2SAT 98
[2021-11-18] MEDS: Citalopram 10 MG Tablet PO (21:22)
[2021-11-19] MEDS: Pregabalin 75 MG Capsule 150 MG PO ×3 (05:45→21:38)
[2021-11-19] MEDS: Enoxaparin 40 MG/0.4 ML Syringe SC (05:45)
[2021-11-19] MEDS: OMEPRAZOLE 40 MG CAPSULE.DR PO ×2 (05:45→17:09)
[2021-11-19] MEDS: Lisinopril 5 MG Tablet PO (05:46)
[2021-11-19 05:51] VITALS: BP 144/73; PULSE 95; RESP 16
--- NOTE | 2021-11-19 05:52 | NURSING ---
Pt. refused Imdur per order, states I'm not taking that, It makes my blood pressure to low, tell Dr. Hernandez I don't want it. Written communication left for Dr. Hernandez regarding pt. refusal.
[2021-11-19 06:41] LABS: Bedside Glucose 149 mg/dL (74-106)
[2021-11-19 09:07] VITALS: BP 108/49; PULSE 80
[2021-11-19] MEDS: Menthol/Lanolin/Calamine/Znox 113 GM Tube 1 APPLIC TOPICAL ×2 (09:26→21:41)
[2021-11-19 10:00] VITALS: PULSE 82; RESP 18; O2SAT 96
[2021-11-19] MEDS: oxyCODONE 5 MG Tablet PO ×2 (11:02→21:39)
[2021-11-19] MEDS: Acetaminophen 500 MG Tablet 1000 MG PO ×2 (11:05→21:39)
--- NOTE | 2021-11-19 15:00 | NURSING ---
Family notified of covid positive pt on unit.
[2021-11-19 16:00] VITALS: BP 113/58; PULSE 72; RESP 16; TEMP 36.9; O2SAT 95
[2021-11-19] MEDS: Citalopram 10 MG Tablet PO (21:39)
[2021-11-20] MEDS: OMEPRAZOLE 40 MG CAPSULE.DR PO ×2 (06:08→17:28)
[2021-11-20] MEDS: Pregabalin 75 MG Capsule 150 MG PO ×3 (06:08→23:03)
[2021-11-20] MEDS: Enoxaparin 40 MG/0.4 ML Syringe SC (06:09)
[2021-11-20 06:12] VITALS: BP 117/53; PULSE 85
--- NOTE | 2021-11-20 06:12 | NURSING ---
patient declined [id number] lisinopril at this time, states I might take it later with my other blood pressure pill, we will see what my blood pressure is then. Will pass along to oncoming nurse.
[2021-11-20 06:19] VITALS: BP 117/53; PULSE 85
[2021-11-20 06:20] LABS: Bedside Glucose 170 mg/dL (74-106)
[2021-11-20] MEDS: Carvedilol 6.25 MG Tablet PO (08:27)
[2021-11-20] MEDS: Menthol/Lanolin/Calamine/Znox 113 GM Tube 1 APPLIC TOPICAL ×2 (08:30→23:01)
--- NOTE | 2021-11-20 08:51 | MDS.RN ---
Information for the mds was obtained from review of the clinical record, interview of resident, staff, and direct observation of resident's care.
[2021-11-20] MEDS: oxyCODONE 5 MG Tablet PO ×2 (09:36→23:03)
[2021-11-20] MEDS: Acetaminophen 500 MG Tablet 1000 MG PO ×2 (09:36→23:02)
[2021-11-20 14:44] VITALS: BP 111/61; PULSE 78; RESP 14; TEMP 36.7; O2SAT 90
--- NOTE | 2021-11-20 16:24 | CASEMGMT ---
Social Work Pt was issues a letter of non coverage from insurance with last covered day 11/23 and discharge 11/24. MITZI met with pt who was on speaker phone with dgt and explained above. Pt choosing to appeal discharge at this time. SW informed pt that d/c plan would be made in event she does not win appeal and will d/c on Tuesday. SW provided pt with list of [facility] providers in network including quality and resource use data and in network with insurance. Pt preferred providers are [facility]. [facility] 2. [facility]. Pt will need wheeled walker at time of discharge and would like to use [employer]. Pt will return home with her daughter at time of discharge. Passport referral has been made and pt confirms she has spoke to [employer] licensed funeral director and is waiting to hear back. Info has been given on [facility]. Referrals made for home health PT/OT/EYEGLASS LENS GENERATOR. [facility] and [facility] are unable to accept. Pt agreeable to referrals to any other agencies who are able to staff. Referrals to [facility] and [facility]. SW waiting determination if they can accept. Referral to Replaced By [facility] and the are able to provide PT/OT but not EYEGLASS LENS GENERATOR. [place] to [facility] [place] because of the holiday weekend, they are unable to deliver a walker at this time and it may be better for pt to pick the walker up at [facility] [place] at time of discharge. Pt is aware the MITZI is working on discharge plans. Will follow up with pt on Tuesday to finalize plans. Plan: D/C Friday 11/24 pending appeal. Home Health PT/OT/EYEGLASS LENS GENERATOR. Bonied YAZMIN Fowler
--- NOTE | 2021-11-20 16:34 | CASEMGMT ---
BIMS and PHQ9 interviews completed on this date for MDS assessment. YAZMIN León
[2021-11-20 23:00] VITALS: PULSE 91; RESP 16; O2SAT 16
[2021-11-20] MEDS: Citalopram 10 MG Tablet PO (23:02)
[2021-11-21] MEDS: Pregabalin 75 MG Capsule 150 MG PO ×3 (06:15→22:08)
[2021-11-21] MEDS: Lisinopril 5 MG Tablet PO (06:15)
[2021-11-21] MEDS: OMEPRAZOLE 40 MG CAPSULE.DR PO ×2 (06:15→17:37)
[2021-11-21] MEDS: Enoxaparin 40 MG/0.4 ML Syringe SC (06:17)
[2021-11-21 06:24] VITALS: BP 114/66; PULSE 87
[2021-11-21 06:31] LABS: Bedside Glucose 162 mg/dL (74-106)
[2021-11-21 10:00] VITALS: PULSE 84
[2021-11-21] MEDS: Menthol/Lanolin/Calamine/Znox 113 GM Tube 1 APPLIC TOPICAL ×2 (10:52→22:08)
--- NOTE | 2021-11-21 11:30 | DS.PCM_ITS ---
Providers Date of Admission: 11/09/21 Primary Care Physician: Dr. Bryson Hernandez MD Reason For Visit: RIGHT FEMUR FRACTURE Diagnosis Discharge Diagnosis (1) Debility: Status: Acute Code(s): R53.81 - Other malaise (2) Fall: Status: Inactive Code(s): W19.XXXA - Unspecified fall, initial encounter (3) Closed intertrochanteric fracture of right hip: Status: Inactive Code(s): S72.141A - Displaced intertrochanteric fracture of right femur, initial encounter for closed fracture (4) Hypertension: Status: Chronic Code(s): I10 - Essential (primary) hypertension (5) Coronary artery disease: Status: Acute Code(s): I25.10 - Atherosclerotic heart disease of [place] coronary artery without angina pectoris (6) Chronic kidney disease, stage 3b: Status: Acute Code(s): N18.32 - Chronic kidney disease, stage 3b (7) Diabetes mellitus: Status: Acute Code(s): E11.9 - Type 2 diabetes mellitus without complications (8) Depression: Status: Acute Code(s): F32.A - Depression, unspecified (9) Chronic pain: Status: Chronic Code(s): G89.29 - Other chronic pain (10) Diabetic polyneuropathy: Status: Acute Code(s): E11.42 - Type 2 diabetes mellitus with diabetic polyneuropathy (11) Hyperlipidemia: Status: Acute Code(s): E78.5 - Hyperlipidemia, unspecified (12) Gastroesophageal reflux disease: Status: Acute Code(s): K21.9 - Gastro-esophageal reflux disease without esophagitis Plan 76 year old female with below past medical history hospitalized for right hip fracture, underwent ORIF right hip fracture 11/07/2021, admitted to TCU with debility, here for rehabilitation, strengthening, prior to discharge home with family. * Debility - PT/OT. * Pain - Tylenol 1000mg q6h prn pain (1-3), Oxycodone 5mg q4h prn pain (4-10). * Bowel - Senna/colace 1 tablet bid, Dulcolax 10mg daily prn. * Adult immunization - Administer pneumonia vaccine, covid19 vaccine, flu vaccine as appropriate. * DVT prophylaxis - Lovenox 40mg sc daily thru 12/01/2021. * Hypertension - Coreg 6.25mg bid, Lisinopril 10mg daily, Amlodipine 5mg daily. * Depression - Citalopram 10mg daily, stable chronic intermediate accountant use, GDR not recommended. * Nutrition - Glucerna Shake 120ml po bidcm. * Coronary artery disease - Coreg 6.25mg bid, Lisinopril 10mg daily, Imdur 30mg daily, NTG 0.4mg sl q5m prn. * Diabetes Mellitus II - Metformin 500mg bidcm. * GERD - Pantoprazole 40mg daily * Diabetic polyneuropathy - Lyrica 150mg tid. Medications at Discharge Home Medications isosorbide mononitrate 30 mg tablet,extended release 24 hr 1 tab PO DAILY heart 11/05/21 omeprazole 40 mg capsule,delayed release 1 cap PO BID reflux 11/05/21 citalopram 10 mg tablet (Celexa) 10 mg PO DAILY depression 11/09/21 pregabalin 150 mg capsule 150 mg PO TID pain 11/09/21 lisinopril 5 mg tablet 5 mg PO DAILY 30 days #30 tabs 11/21/21 oxycodone 5 mg tablet 5 mg PO Q4H PRN PRN Pain Score 4-10 7 days #42 tabs 11/21/21 Hospital Course Operations - (ORIF right hip intramedullary nail) Procedures None Summary of Care Provided Minutes Spent on Discharge: 35 Hospital Course: 76 year old female with below past medical history hospitalized for right hip fracture, underwent ORIF right hip fracture 11/07/2021, admitted to TCU with debility, here for rehabilitation, strengthening, prior to discharge home with family. Discharge home with daughter 11/24/2021, Home Health PT/OT, wheeled walker. Weight / BMI Weight Weight: 97.432 kg Body Mass Index (BMI) 35.4 ABG / Lab / Microbiology Data Result Diagrams: 11/17/21 05:13 11/17/21 05:13 Laboratory: Laboratory Results - last 24 hr 11/21/21 06:14: POC Glucose 162 H Microbiology: Microbiology 11/16/21 12:37 Nasal Secretion SARS-CoV-2 Antigen (Rapid) - Final 11/10/21 04:00 Nasal Secretion SARS-CoV-2 Antigen (Rapid) - Final D/C Instructions Discharge Diet: No restrictions Discharge Activity: Return to Normal Activity, May Shower and Use Walker Weight Bearing Status: Weight bearing as tolerated Call your doctor if you observe: Fever of 101 or Higher, Inability to urinate, Inability to have a bowel movement, Shortness of breath, Dizziness, Fainting spells, Swelling in the ankles, Chest pain and Uncontrolled pain Additional Instructions: Discharge home with daughter 11/24/2021, Home Health PT/OT, wheeled walker. Meaningful Use Info Meaningful Use Diagnoses (Choose all that apply): None applicable Discharge Plan Admission Admit Date/Time: 11/09/21 22:15 Primary Reason for Your Visit: Debility. Attending Provider: Bryson Hernandez Chi Primary Care Provider: Bryson Hernandez Chi Instructions Additional Instructions / Restrictions: Discharge home with daughter 11/24/2021, Home Health PT/OT, wheeled walker. Discharge Orders/Prescriptions Prescriptions: New lisinopril 5 mg Tablet 5 mg PO DAILY 30 Days Qty: 30 0RF oxycodone 5 mg Tablet 5 mg PO Q4H PRN PRN (Reason: Pain Score 4-10) 7 Days Qty: 42 0RF Continued isosorbide mononitrate 30 mg tablet extended release 24 hr 1 tab PO DAILY Label Comments: TAKE 1 TABLET BY MOUTH ONCE DAILY FOR 30 DAYS citalopram [Celexa] 10 mg Tablet 10 mg PO DAILY pregabalin 150 mg Capsule 150 mg PO TID Discontinued lisinopril 10 mg tablet 1 tab PO DAILY Label Comments: TAKE 1 TABLET BY MOUTH ONCE DAILY FOR 30 DAYS metformin 500 mg Tablet 500 mg PO BID acetaminophen 500 mg Tablet 1,000 mg PO Q6H PRN (Reason: Pain) nitroglycerin 0.4 mg Tablet, Sublingual 0.4 mg SUBLINGUAL Q5M PRN (Reason: Chest Pain) Rx Instructions: do not exceed 3 doses per episode oxycodone 5 mg Tablet 5 mg PO Q6H PRN (Reason: Pain) enoxaparin 40 mg/0.4 mL Syringe 40 mg SUBCUT DAILY senna 8.6 mg Capsule 8.6 mg PO BID amlodipine 5 mg tablet 5 mg PO DAILY Label Comments: TAKE 1 TABLET BY MOUTH ONCE DAILY FOR 30 DAYS No Action omeprazole 40 mg capsule,delayed release(DR/EC) 1 cap PO BID Label Comments: TAKE 1 CAPSULE BY MOUTH TWICE DAILY Referrals / Follow Up: David,Bryson Chi, MD [Primary Care Provider] - Disposition Disposition (needs filled in before D/C Order can be placed): Home Health Service
--- NOTE | 2021-11-21 11:34 | NURSING ---
pt requested coreg be dc'd, she only wants to take her lisinopril. dr singer updated, new order to DC and monitor BPs
--- NOTE | 2021-11-21 13:12 | NURSING ---
Patient updated on staff member testing positive for covid.
[2021-11-21] MEDS: oxyCODONE 5 MG Tablet PO ×2 (13:17→22:08)
[2021-11-21] MEDS: Acetaminophen 500 MG Tablet 1000 MG PO ×2 (13:17→22:08)
[2021-11-21 16:00] VITALS: BP 115/68; PULSE 78; RESP 16; TEMP 36.7; O2SAT 95
[2021-11-21] MEDS: Citalopram 10 MG Tablet PO (22:09)
[2021-11-22] MEDS: Enoxaparin 40 MG/0.4 ML Syringe SC (04:57)
[2021-11-22] MEDS: Lisinopril 5 MG Tablet PO (04:58)
[2021-11-22] MEDS: OMEPRAZOLE 40 MG CAPSULE.DR PO ×2 (04:58→17:21)
[2021-11-22] MEDS: Pregabalin 75 MG Capsule 150 MG PO ×3 (04:58→21:58)
[2021-11-22 06:41] LABS: Bedside Glucose 157 mg/dL (74-106)
[2021-11-22] MEDS: Menthol/Lanolin/Calamine/Znox 113 GM Tube 1 APPLIC TOPICAL ×2 (11:10→22:01)
[2021-11-22] MEDS: oxyCODONE 5 MG Tablet PO ×2 (14:45→21:58)
[2021-11-22] MEDS: Acetaminophen 500 MG Tablet 1000 MG PO (14:45)
[2021-11-22 16:00] VITALS: BP 114/42; PULSE 80; RESP 16; TEMP 36.2; O2SAT 94
[2021-11-22] MEDS: Glucerna Shake 120 ML LIQUID PO (17:21)
[2021-11-22 20:20] VITALS: O2SAT 97
[2021-11-22] MEDS: Citalopram 10 MG Tablet PO (21:59)
[2021-11-23] MEDS: Pregabalin 75 MG Capsule 150 MG PO ×3 (06:03→20:31)
[2021-11-23] MEDS: Lisinopril 5 MG Tablet PO (06:03)
[2021-11-23] MEDS: OMEPRAZOLE 40 MG CAPSULE.DR PO ×2 (06:04→17:09)
[2021-11-23] MEDS: Enoxaparin 40 MG/0.4 ML Syringe SC (06:05)
[2021-11-23 06:10] VITALS: BP 128/68; PULSE 97
[2021-11-23 06:16] LABS: Bedside Glucose 180 mg/dL (74-106)
[2021-11-23] MEDS: Glucerna Shake 120 ML LIQUID PO ×2 (08:35→17:09)
[2021-11-23] MEDS: Menthol/Lanolin/Calamine/Znox 113 GM Tube 1 APPLIC TOPICAL ×2 (08:36→20:31)
[2021-11-23] MEDS: Acetaminophen 500 MG Tablet 1000 MG PO ×2 (11:21→22:25)
[2021-11-23] MEDS: oxyCODONE 5 MG Tablet PO ×2 (11:22→22:24)
[2021-11-23 15:06] VITALS: BP 107/47; PULSE 75; RESP 18; TEMP 35.8; O2SAT 93
[2021-11-23] MEDS: Citalopram 10 MG Tablet PO (20:32)
[2021-11-24] MEDS: Pregabalin 75 MG Capsule 150 MG PO (05:01)
[2021-11-24] MEDS: Enoxaparin 40 MG/0.4 ML Syringe SC (05:02)
[2021-11-24] MEDS: Lisinopril 5 MG Tablet PO (05:02)
[2021-11-24] MEDS: OMEPRAZOLE 40 MG CAPSULE.DR PO (05:02)
[2021-11-24 05:59] LABS: Absolute Lymphocyte Count 2.84 X10^3/uL (0.83-4.51); Absolute Neutrophil Count 4.2 X10^3/uL (2.0-7.7); Basophil# 0.09 X10^3/uL; Basophil% 1.1 % (0-1); Eosinophil# 0.34 X10^3/uL; Eosinophils% 4.1 % (0-5); Hematocrit 35.4 % (37-47); Hemoglobin 11.3 g/dL (12.0-15.0); Lymphocyte # 2.84 X10^3/ul (0.83-4.51); Lymphocyte % 34.6 % (19-41); Mean Corp Hgb Conc 31.9 g/dL (32-36); Mean Corpuscular Volume 90.8 fL (81-99); Mean Platelet Vol. 10.9 fl (6.2-12.0); Monocyte# 0.71 X10^3/uL; Monocyte% 8.7 % (0-10); NRBC Flagged by Analyzer 0 % (0-5); Neutrophil # 4.19 X10^3/uL (2.7-7.7); Neutrophil % 51.1 % (47-70); Platelet Count 253 K/mm3 (150-450); RBC Distribution Width SD 49.4 fl (35.1-43.9); White Blood Count 8.2 K/mm3 (4.4-11.0)
[2021-11-24 06:26] LABS: Bedside Glucose 144 mg/dL (74-106)
[2021-11-24 06:40] LABS: Anion Gap 5 (5-15); BUN 25 mg/dL (7-18); BUN/Creat Ratio 22.9 RATIO (10-20); Calcium,Total 9.2 mg/dL (8.5-10.1); Chloride 107 mmol/L (98-107); Creatinine, Serum 1.09 mg/dL (0.55-1.02); EST Glomerular Filtration Rate 52 mL/min (>60); Est Glom Filt Rate - Afr Amer 63 mL/min (>60); Estimated Creatinine Clearance 40.46 ml/min; Glucose 153 mg/dL (74-106); Potassium 4.2 mmol/L (3.5-5.1); Sodium Level 140 mmol/L (136-145)
[2021-11-24] MEDS: Glucerna Shake 120 ML LIQUID PO (09:25)
[2021-11-24] MEDS: Menthol/Lanolin/Calamine/Znox 113 GM Tube 1 APPLIC TOPICAL (09:26)
[2021-11-24 14:08] VITALS: BP 127/67; PULSE 65; RESP 18; TEMP 35.5; O2SAT 95
--- NOTE | 2021-11-24 17:51 | CASEMGMT ---
Social Work Received outcome from appeal - pt lost. Notified pt - pt stated Bladimir already called her and she was aware. The plan is for her to DC home with dtr. Updated on [facility] not having SPECIAL PROCEDURE TECHNOLOGIST. [facility] returned call and cannot have therapy SOC until 11/28-11/30. SW left message with [facility] and have not received return phone call. Pt chose [facility] and OT can assist with bathing, per liaison. Pt received [facility] from [facility]. DC home today with [facility] and FWW Deepika Gonzalez, RIBBER HYDRAULIC REPAIRER
== END 2021-11-24 14:12 | disposition home health service (06) | DRG 561 ==
PROVIDERS: Admitting Provider Family Medicine Geriatric Medicine; PCP Family Medicine Geriatric Medicine; Visit Provider Family Medicine Geriatric Medicine
DX: S72.141D Displaced intertrochanteric fracture of right femur, subsequent encounter for closed fracture with routine healing (principal); E11.22 Type 2 diabetes mellitus with diabetic chronic kidney disease; E11.42 Type 2 diabetes mellitus with diabetic polyneuropathy; N18.32 Chronic kidney disease, stage 3b; I12.9 Hypertensive chronic kidney disease with stage 1 through stage 4 chronic kidney disease, or unspecified chronic kidney disease; I25.10 Atherosclerotic heart disease of native coronary artery without angina pectoris; K21.9 Gastro-esophageal reflux disease without esophagitis; E78.5 Hyperlipidemia, unspecified; W18.30XD Fall on same level, unspecified, subsequent encounter; G89.29 Other chronic pain; Z79.84 Long term (current) use of oral hypoglycemic drugs; F32.A Depression, unspecified; Z87.891 Personal history of nicotine dependence; Z79.899 Other long term (current) drug therapy
CPT/HCPCS: 36415; 80048; 82962; 85025; 87811; 97110; 97116; 97162; 97166; 97530; 97535; 97802; J7030

== ENCOUNTER → 2022-06-09 | Outpatient (CLI) | payer MEDICARE, SELFPAY ==
[2022-06-09 14:00] LABS: Vitamin D,25 Hydroxy 67.4 ng/mL
[2022-06-09 14:10] LABS: ALB/GLOB Ratio 0.7 RATIO (0.9-2.4); AST(SGOT) 52 U/L (15-37); Alanine Aminotransfer ALT/SGPT 52 U/L (13-56); Albumin, Serum 3.4 g/dL (3.2-5.0); Alkaline Phosphatase 114 U/L (45-117); Anion Gap 7 (5-15); BUN 19 mg/dL (7-18); BUN/Creat Ratio 14.1 RATIO (10-20); Calcium,Total 9.2 mg/dL (8.5-10.1); Chloride 102 mmol/L (98-107); Creatinine, Serum 1.35 mg/dL (0.55-1.02); EST Glomerular Filtration Rate 40 mL/min (>60); Est Glom Filt Rate - Afr Amer 49 mL/min (>60); Globulin 4.7 g/dL (2.2-4.2); Glucose 313 mg/dL (74-106); Phosphorus 3.5 mg/dL (2.5-4.9); Potassium 4.4 mmol/L (3.5-5.1); Protein, Total 8.1 g/dL (6.4-8.2); Sodium Level 133 mmol/L (136-145); Thyroid Stim Hormone (TSH) 3.61 uIU/mL (0.358-3.74)
[2022-06-09 15:21] LABS: Absolute Lymphocyte Count 2.28 X10^3/uL (0.83-4.51); Absolute Neutrophil Count 3.2 X10^3/uL (2.0-7.7); Basophil# 0.11 X10^3/uL; Basophil% 1.7 % (0-1); Eosinophil# 0.21 X10^3/uL; Eosinophils% 3.3 % (0-5); Hematocrit 35.6 % (37-47); Hemoglobin 11.2 g/dL (12.0-15.0); Lymphocyte # 2.28 X10^3/ul (0.83-4.51); Lymphocyte % 35.6 % (19-41); Mean Corp Hgb Conc 31.5 g/dL (32-36); Mean Corpuscular Hgb 25.6 pg (27.0-32.0); Mean Corpuscular Volume 81.5 fL (81-99); Mean Platelet Vol. 11.4 fl (6.2-12.0); Monocyte# 0.55 X10^3/uL; Monocyte% 8.6 % (0-10); NRBC Flagged by Analyzer 0 % (0-5); Neutrophil # 3.23 X10^3/uL (2.7-7.7); Neutrophil % 50.5 % (47-70); Platelet Count 188 K/mm3 (150-450); RBC Distribution Width CV 15.1 % (11.6-14.6); RBC Distribution Width SD 44.8 fl (35.1-43.9); Red Blood Count 4.37 M/mm3 (4.2-5.4); White Blood Count 6.4 K/mm3 (4.4-11.0)
== END | disposition home or self-care (01) ==
LOC: POLAB3 10:43
PROVIDERS: PCP Family Medicine Geriatric Medicine; Visit Provider Internal Medicine Nephrology
DX: E11.22 Type 2 diabetes mellitus with diabetic chronic kidney disease (principal); N18.32 Chronic kidney disease, stage 3b; E55.9 Vitamin D deficiency, unspecified; I12.9 Hypertensive chronic kidney disease with stage 1 through stage 4 chronic kidney disease, or unspecified chronic kidney disease
CPT/HCPCS: 36415; 80053; 82306; 84100; 84443; 85025

== ENCOUNTER → 2022-09-08 | Outpatient (CLI) | payer MEDICARE, OTHER, MEDICAID, SELFPAY ==
[2022-09-08 13:02] LABS: Absolute Lymphocyte Count 2.29 X10^3/uL (0.83-4.51); Absolute Neutrophil Count 3.4 X10^3/uL (2.0-7.7); Basophil# 0.11 X10^3/uL; Basophil% 1.7 % (0-1); Eosinophil# 0.22 X10^3/uL; Eosinophils% 3.3 % (0-5); Hematocrit 34.8 % (37-47); Hemoglobin 10.4 g/dL (12.0-15.0); Lymphocyte # 2.29 X10^3/ul (0.83-4.51); Lymphocyte % 34.7 % (19-41); Mean Corp Hgb Conc 29.9 g/dL (32-36); Mean Corpuscular Hgb 25.1 pg (27.0-32.0); Mean Corpuscular Volume 83.9 fL (81-99); Mean Platelet Vol. 10.7 fl (6.2-12.0); Monocyte# 0.59 X10^3/uL; NRBC Flagged by Analyzer 0 % (0-5); Neutrophil # 3.36 X10^3/uL (2.7-7.7); Platelet Count 228 K/mm3 (150-450); RBC Distribution Width CV 17.2 % (11.6-14.6); RBC Distribution Width SD 52.7 fl (35.1-43.9); Red Blood Count 4.15 M/mm3 (4.2-5.4); White Blood Count 6.6 K/mm3 (4.4-11.0)
[2022-09-08 13:37] LABS: ALB/GLOB Ratio 0.8 RATIO (0.9-2.4); AST(SGOT) 41 U/L (15-37); Alanine Aminotransfer ALT/SGPT 41 U/L (13-56); Albumin, Serum 3.4 g/dL (3.2-5.0); Alkaline Phosphatase 96 U/L (45-117); Anion Gap 6 (5-15); BUN 14 mg/dL (7-18); BUN/Creat Ratio 10.9 RATIO (10-20); Chloride 105 mmol/L (98-107); Creatinine, Serum 1.29 mg/dL (0.55-1.02); EST Glomerular Filtration Rate 42 mL/min (>60); Est Glom Filt Rate - Afr Amer 51 mL/min (>60); Globulin 4.3 g/dL (2.2-4.2); Glucose 202 mg/dL (74-106); Potassium 4.4 mmol/L (3.5-5.1); Protein, Total 7.7 g/dL (6.4-8.2); Sodium Level 137 mmol/L (136-145); Thyroid Stim Hormone (TSH) 2.25 uIU/mL (0.358-3.74); Uric Acid 4.9 mg/dL (2.6-6.0)
[2022-09-08 13:41] LABS: Vitamin D,25 Hydroxy 67.6 ng/mL
== END | disposition home or self-care (01) ==
LOC: POLAB3 11:49
PROVIDERS: PCP Family Medicine Geriatric Medicine; Visit Provider Family Medicine Geriatric Medicine
DX: E11.65 Type 2 diabetes mellitus with hyperglycemia (principal); E55.9 Vitamin D deficiency, unspecified; I10 Essential (primary) hypertension
CPT/HCPCS: 36415; 80053; 82306; 84443; 84550; 85025

== ENCOUNTER → 2022-12-08 | Outpatient (CLI) | payer MEDICARE, MEDICAID, SELFPAY ==
[2022-12-08 16:30] LABS: Absolute Lymphocyte Count 2.05 X10^3/uL (0.83-4.51); Absolute Neutrophil Count 3.6 X10^3/uL (2.0-7.7); Basophil% 1.5 % (0-1); Eosinophil# 0.24 X10^3/uL; Eosinophils% 3.7 % (0-5); Hematocrit 32.9 % (37-47); Hemoglobin 9.5 g/dL (12.0-15.0); Lymphocyte # 2.05 X10^3/ul (0.83-4.51); Lymphocyte % 31.4 % (19-41); Mean Corp Hgb Conc 28.9 g/dL (32-36); Mean Corpuscular Hgb 22.8 pg (27.0-32.0); Mean Corpuscular Volume 79.1 fL (81-99); Mean Platelet Vol. 11.8 fl (6.2-12.0); Monocyte# 0.54 X10^3/uL; Monocyte% 8.3 % (0-10); NRBC Flagged by Analyzer 0 % (0-5); Neutrophil # 3.58 X10^3/uL (2.7-7.7); Neutrophil % 54.8 % (47-70); Platelet Count 212 K/mm3 (150-450); RBC Distribution Width CV 17.3 % (11.6-14.6); RBC Distribution Width SD 50.1 fl (35.1-43.9); Red Blood Count 4.16 M/mm3 (4.2-5.4); White Blood Count 6.5 K/mm3 (4.4-11.0)
[2022-12-08 17:07] LABS: ALB/GLOB Ratio 0.7 RATIO (0.9-2.4); AST(SGOT) 45 U/L (15-37); Alanine Aminotransfer ALT/SGPT 43 U/L (13-56); Albumin, Serum 3.3 g/dL (3.2-5.0); Alkaline Phosphatase 117 U/L (45-117); Anion Gap 9 (5-15); BUN 21 mg/dL (7-18); BUN/Creat Ratio 16.4 RATIO (10-20); Calcium,Total 9.2 mg/dL (8.5-10.1); Chloride 105 mmol/L (98-107); Cholesterol 180 mg/dL (200); Creatinine, Serum 1.28 mg/dL (0.55-1.02); EST Glomerular Filtration Rate 43 mL/min (>60); Est Glom Filt Rate - Afr Amer 52 mL/min (>60); Globulin 4.7 g/dL (2.2-4.2); Glucose 255 mg/dL (74-106); High Density Lipoprotein 35 mg/dL; Potassium 4.5 mmol/L (3.5-5.1); Sodium Level 137 mmol/L (136-145); Triglycerides 269 mg/dL; Very Low Density Lipoprotein 54 mg/dL (5-40)
[2022-12-08 17:29] LABS: Hemoglobin A1c 8.9 % (3.8-5.6)
[2022-12-08 17:48] LABS: Vitamin D,25 Hydroxy 102.7 ng/mL
== END | disposition home or self-care (01) ==
LOC: POLAB3 12:23
PROVIDERS: PCP Family Medicine Geriatric Medicine; Visit Provider Family Medicine Geriatric Medicine
DX: E11.42 Type 2 diabetes mellitus with diabetic polyneuropathy (principal); I10 Essential (primary) hypertension; E55.9 Vitamin D deficiency, unspecified
CPT/HCPCS: 36415; 80053; 80061; 82306; 83036; 84443; 85025

== ENCOUNTER → 2022-12-13 | Outpatient (CLI) | payer MEDICARE, MEDICAID, SELFPAY ==
[2022-12-13 17:27] LABS: Basophil# 0.12 X10^3/uL; Basophil% 1.3 % (0-1); Eosinophil# 0.31 X10^3/uL; Eosinophils% 3.4 % (0-5); Hematocrit 33.5 % (37-47); Hemoglobin 10.1 g/dL (12.0-15.0); Lymphocyte % 33.5 % (19-41); Mean Corp Hgb Conc 30.1 g/dL (32-36); Mean Corpuscular Hgb 23.2 pg (27.0-32.0); Mean Platelet Vol. 10.6 fl (6.2-12.0); Monocyte# 0.72 X10^3/uL; Monocyte% 7.8 % (0-10); NRBC Flagged by Analyzer 0 % (0-5); Neutrophil # 4.97 X10^3/uL (2.7-7.7); Neutrophil % 53.8 % (47-70); Platelet Count 243 K/mm3 (150-450); RBC Distribution Width CV 17.2 % (11.6-14.6); RBC Distribution Width SD 47.8 fl (35.1-43.9); RET-HE 23.7 pg (30-35); Red Blood Count 4.35 M/mm3 (4.2-5.4); Reticulocyte Count 1.89 % (0.5-1.5); White Blood Count 9.2 K/mm3 (4.4-11.0)
[2022-12-13 18:19] LABS: Vitamin B12 455 pg/mL (211-911)
[2022-12-13 18:53] LABS: Ferritin 11 ng/mL (8-252); Iron Binding Capacity,Total 435 ug/dL (250-450)
== END | disposition home or self-care (01) ==
PROVIDERS: PCP Family Medicine Geriatric Medicine; Visit Provider Family Medicine Geriatric Medicine
DX: D64.9 Anemia, unspecified (principal)
CPT/HCPCS: 36415; 82607; 82728; 82746; 83550; 85025; 85045

== ENCOUNTER → 2022-12-14 | Outpatient (CLI) | payer MEDICARE, MEDICAID, SELFPAY | END | disposition home or self-care (01) | LOC: LABSPEC 15:27 | PROVIDERS: PCP Family Medicine Geriatric Medicine; Referring Provider Family Medicine Geriatric Medicine; Visit Provider Family Medicine Geriatric Medicine | DX: D64.9 Anemia, unspecified (principal) | CPT/HCPCS: 82274 ==

== ENCOUNTER 2023-02-09 14:00 | Outpatient (RCR) | payer MEDICARE, MEDICAID, SELFPAY ==
--- NOTE | 2023-01-10 16:09 | HP.PTEVAL ---
Patient's Visit Information Visit Information Visit Information: AMAYA EDWARDS is a 77 year old F referred to Physical Therapy by Dr. Jya Weems DO with a diagnosis of Left Knee Pain. Date of Evaluation: 01/10/23 Physical Therapist: Meera Francis DPT Visit Plan Frequency: 2x /Week Duration: 4 Weeks Plan: Focus on LE and core strength/stabilization and proprioception HEP Given IE: seated HR/TR, marching, LAQ- standing marching, hip extn, hip abd- NO sitting more than 45 min without 5 min of movement Subjective Subjective: Patient reports that Dr. Chandra sent her to see PT- he wants her to work on her left knee. She is having injections put in her left knee- as soon as they get here. The left knee is bone one bone but the right knee yogi. The right hip is also bad and they have talked about possibly replacing the right hip but it has a jacquelin in the femur a year ago so hes not sure about replacing it. Left Knee- Agg: getting in/out of bed when it wants to pop, getting up/down out of a chair- feels like its getting back into a groove- walking is really hard- when she goes long distances she uses a walker- rollator- around the house she uses a single point cane. Two canes when she goes across uneven surface- like gravel- she has a life alert and the phone- she also lives with family. She has stairs at home but she does not have to use them- she has a stoop to enter but has a bar to use to pull up on it- and can get in/out. She is indep with driving- the only thing they help her with is getting the chair into the shower for her and then she can do all her own dressing and bathing. She does have issues with making her bed- putting her sheets back on the bed. The pain in the knee is on the outside- the pain does radiate to the hip- she also has neuropathy so that is also part of the pain- so she has N/T in the feet and its working it way up the left leg. The pain in the knee is achy- she does elevate her legs due to swelling. She is more sedentary- and sits at the kitchen table- her feet are down most of the day. She puts them up every once in awhile. She has a lot of back pain too- she was having injections but she stopped Tramadol. Objective Objective: Posture: FH, RS- can correct but does not maintain throughout session Gait: slow elvia- straight cane- decreased heel toe pattern- valgus bilateral- SOB- stops 2x for amb 300 feet. HR/TR: able with UE A SLS: weight shift but unable to SLS Palpation: tender along medial and lateral joint line of bilateral knees Flex: HS: severe, Gastroc: severe Sensation: decreased to gross touch below the knees due to neuropathy Strength: Core: poor Hip: 4-/5 throughout, Knee: 4/5 Ankle: 4+/5 ROM: WFL Transfers: requires UE A for sit to stand Balance/Special Test Scores CATSIB Score (Max score 120 seconds): 10 Lower Extremity Functional Score: 32 Goals Goal 1:: Patient will be I with HEP and progression Goal Time Frame: 4-6 Weeks Goal 2:: Patient will maintain proper posture t/o tx session to demo increased core s/s Goal Time Frame: 4-6 Weeks Goal 3:: Patient will ambulate >300 feet with LRD without stopping Goal Time Frame: 4-6 Weeks Goal 4:: Patient will report 80% improvement Goal Time Frame: 4-6 Weeks Rehabilitation Potential Physical Therapy Diagnosis: Patient presents with hypomobility- she has decreased LE and core strength/stabilization, proprioception, flex and muscular endurnace leading to increased pain with ADL's. Rehabilitation Potential: Good Anticipated Interventions Patient/Client Instruction: Educate patient on: Benefits of Fitness Program Therapeutic Exercise to Include: Strength training, Endurance training, Balance training, Coordination, Agility training, Body mechanics, Postural training, Flexibilty training, Gait and locomotor training, Neuromotor development, Dynamic Lumbar Stabilization and Scapular Strength/Stabilization Cryotherapy (ice pack, ice massage): Yes Thermo therapy (hot pack): Yes Ultrasound (thermal/non thermal): No Text: Thank you for the opportunity to evaluate your patient. For Medicare and Medicare HMO plans, please review the plan of care and approve it. It will need to be FAXED BACK to us at [phone] for Medicare purposes. For Medicare only, by signing this I certify the plan of care. Please let me know if there are questions or concerns regarding this plan of care. Physician Signature: Date:
--- NOTE | 2023-02-09 15:19 | HP.PTREVAL ---
Re-Evaluation Intro: Dr. Jay Weems, DO, It has been my pleasure to treat AMAYA EDWARDS over the last 9 visits for Left Knee Pain. Please see the progress note below for an update on the physical therapy plan of care! Subjective Subjective: Patient reports that she has good days and bad days- two nights ago she had a lot of pain- she took 2 tramadol and was a 3/10 instead of a 8-9/10- slept great- she is planning to go back on her medication- she is planning to go back to see her pain management doctor. She is doing some exercise at home in her bed. She feels that she is 40%. She would like to be able to walk to the barn more and see the animals grow. Objective Objective/Function: Posture: FH, RS- can correct but does not maintain throughout session Gait: slow elvia- rollerator- decreased heel toe pattern- valgus bilateral- no stops for 300 feet HR/TR: able with UE A SLS: weight shift but unable to SLS Palpation: tender along medial and lateral joint line of bilateral knees Flex: HS: mod, Gastroc: mod Sensation: decreased to gross touch below the knees due to neuropathy Strength: Core: fair Hip: 4-/5 throughout, Knee: 4/5 Ankle: 4+/5 ROM: WFL Transfers: requires UE A for sit to stand Plan Plan Plan: 02/09/23: Cont with POC 2x a week for 4 weeks Focus on LE and core strength/stabilization and proprioception Balance/Gait/Functional tests Balance/Special Test Scores CATSIB Score (Max score 120 seconds): 10 Lower Extremity Functional Score: 36 Goals Goals Goal 1:: Patient will be I with HEP and progression Goal Time Frame: 4-6 Weeks Goal Progress: Progressing Goal 2:: Patient will maintain proper posture t/o tx session to demo increased core s/s Goal Time Frame: 4-6 Weeks Goal Progress: Progressing Goal 3:: Patient will ambulate >300 feet with LRD without stopping Goal Time Frame: 4-6 Weeks Goal Progress: Progressing Goal 4:: Patient will report 80% improvement Goal Time Frame: 4-6 Weeks Goal Progress: Progressing Anticipated Interventions Anticipated Interventions Patient/Client Instruction: Educate patient on: Benefits of Fitness Program Therapeutic Exercise to Include: Strength training, Endurance training, Balance training, Coordination, Agility training, Body mechanics, Postural training, Flexibilty training, Gait and locomotor training, Neuromotor development, Dynamic Lumbar Stabilization and Scapular Strength/Stabilization Cryotherapy (ice pack, ice massage): Yes Thermo therapy (hot pack): Yes Ultrasound (thermal/non thermal): No Re-Evaluation Ending Re-evaluation ending: Please do not hesitate to contact me at [phone] by phone or if you have questions or concerns regarding this new plan of care! Sincerely, GRETA SuT
== END 2023-02-09 19:00 | disposition home or self-care (01) ==
LOC: PT 14:00
PROVIDERS: PCP Family Medicine Geriatric Medicine; Referring Provider Orthopaedic Surgery; Visit Provider Orthopaedic Surgery
DX: M17.12 Unilateral primary osteoarthritis, left knee (principal); M16.11 Unilateral primary osteoarthritis, right hip; Z97.8 Presence of other specified devices
CPT/HCPCS: 97110; 97162; 97164

== ENCOUNTER → 2023-03-02 | Outpatient (CLI) | payer MEDICARE, MEDICAID, SELFPAY ==
[2023-03-02 12:45] LABS: Absolute Lymphocyte Count 2.43 X10^3/uL (0.83-4.51); Absolute Neutrophil Count 3.7 X10^3/uL (2.0-7.7); Basophil# 0.07 X10^3/uL; Eosinophils% 2.9 % (0-5); Hematocrit 37.6 % (37-47); Hemoglobin 11.4 g/dL (12.0-15.0); Lymphocyte # 2.43 X10^3/ul (0.83-4.51); Lymphocyte % 35.1 % (19-41); Mean Corp Hgb Conc 30.3 g/dL (32-36); Mean Corpuscular Volume 85.6 fL (81-99); Mean Platelet Vol. 11.2 fl (6.2-12.0); Monocyte# 0.47 X10^3/uL; Monocyte% 6.8 % (0-10); NRBC Flagged by Analyzer 0 % (0-5); Neutrophil # 3.74 X10^3/uL (2.7-7.7); Neutrophil % 54.1 % (47-70); Platelet Count 194 K/mm3 (150-450); RBC Distribution Width CV 19.4 % (11.6-14.6); RBC Distribution Width SD 61.3 fl (35.1-43.9); Red Blood Count 4.39 M/mm3 (4.2-5.4); White Blood Count 6.9 K/mm3 (4.4-11.0)
[2023-03-02 13:13] LABS: ALB/GLOB Ratio 0.7 RATIO (0.9-2.4); AST(SGOT) 30 U/L (15-37); Alanine Aminotransfer ALT/SGPT 37 U/L (13-56); Albumin, Serum 3.2 g/dL (3.2-5.0); Alkaline Phosphatase 97 U/L (45-117); Anion Gap 5 (5-15); BUN 28 mg/dL (7-18); BUN/Creat Ratio 20.3 RATIO (10-20); Calcium,Total 9.5 mg/dL (8.5-10.1); Chloride 108 mmol/L (98-107); Cholesterol 178 mg/dL (200); Creatinine, Serum 1.38 mg/dL (0.55-1.02); EST Glomerular Filtration Rate 39 mL/min (>60); Est Glom Filt Rate - Afr Amer 48 mL/min (>60); Globulin 4.6 g/dL (2.2-4.2); Glucose 182 mg/dL (74-106); High Density Lipoprotein 34 mg/dL; Potassium 4.9 mmol/L (3.5-5.1); Protein, Total 7.8 g/dL (6.4-8.2); Sodium Level 139 mmol/L (136-145); Triglycerides 241 mg/dL; Very Low Density Lipoprotein 48 mg/dL (5-40)
[2023-03-02 13:19] LABS: Vitamin D,25 Hydroxy 127.6 ng/mL
[2023-03-02 15:05] LABS: Hemoglobin A1c 6.7 % (3.8-5.6)
[2023-03-02 16:04] LABS: Microalbumin,Random Urine 5.3 mg/L (NO RANGE EST.)
[2023-03-02 16:20] LABS: Amphetamine Urine VISTA NEGATIVE (<1000 ng/mL); Barbiturate Urine VISTA NEGATIVE (< 200 ng/mL); Benzodiazepine Urine VISTA NEGATIVE (< 200 ng/mL); Cocaine Urine VISTA NEGATIVE (< 300 ng/mL); Ecstacy Urine VISTA NEGATIVE (< 500 ng/mL); Methadone Urine VISTA NEGATIVE (< 300 ng/mL); PCP Urine VISTA NEGATIVE (< 25 ng/mL); THC Urine VISTA NEGATIVE (< 50 ng/mL); Vista UDS pH Range 5
== END | disposition home or self-care (01) ==
LOC: POLAB3 11:50 → LAB 14:14
PROVIDERS: PCP Family Medicine Geriatric Medicine; Referring Provider Anesthesiology Pain Medicine; Visit Provider Anesthesiology Pain Medicine
DX: E11.65 Type 2 diabetes mellitus with hyperglycemia (principal); F11.20 Opioid dependence, uncomplicated; I10 Essential (primary) hypertension; E55.9 Vitamin D deficiency, unspecified
CPT/HCPCS: 36415; 80053; 80061; 80307; 82043; 82306; 83036; 84443; 85025

== ENCOUNTER → 2023-03-16 | Outpatient (CLI) | payer MEDICARE, MEDICAID, SELFPAY ==
[2023-03-16 15:16] LABS: Protein, Urine (Random) 20.1 mg/dL (<11.9); Protein:Creat Ratio 183 mg/g CRE (0-200)
[2023-03-16 16:05] LABS: Anion Gap 2 (5-15); BUN 32 mg/dL (7-18); BUN/Creat Ratio 26.4 RATIO (10-20); Calcium,Total 9.3 mg/dL (8.5-10.1); Chloride 109 mmol/L (98-107); Creatinine, Serum 1.21 mg/dL (0.55-1.02); EST Glomerular Filtration Rate 46 mL/min (>60); Est Glom Filt Rate - Afr Amer 55 mL/min (>60); Glucose 69 mg/dL (74-106); Potassium 4.2 mmol/L (3.5-5.1); Sodium Level 140 mmol/L (136-145)
== END | disposition home or self-care (01) ==
LOC: LAB 13:24
PROVIDERS: PCP Family Medicine Geriatric Medicine; Visit Provider Internal Medicine Nephrology
DX: N18.32 Chronic kidney disease, stage 3b (principal)
CPT/HCPCS: 36415; 80048; 82570; 84156

== ENCOUNTER → 2023-06-02 | Outpatient (CLI) | payer MEDICARE, MEDICAID, SELFPAY ==
[2023-06-02 12:35] LABS: Absolute Lymphocyte Count 2.63 X10^3/uL (0.83-4.51); Absolute Neutrophil Count 4.2 X10^3/uL (2.0-7.7); Basophil# 0.09 X10^3/uL; Basophil% 1.1 % (0-1); Eosinophil# 0.29 X10^3/uL; Eosinophils% 3.7 % (0-5); Hemoglobin 12.8 g/dL (12.0-15.0); Lymphocyte # 2.63 X10^3/ul (0.83-4.51); Lymphocyte % 33.3 % (19-41); Mean Corp Hgb Conc 31.2 g/dL (32-36); Mean Corpuscular Hgb 27.4 pg (27.0-32.0); Mean Corpuscular Volume 87.6 fL (81-99); Mean Platelet Vol. 11.4 fl (6.2-12.0); Monocyte# 0.71 X10^3/uL; NRBC Flagged by Analyzer 0 % (0-5); Neutrophil # 4.15 X10^3/uL (2.7-7.7); Neutrophil % 52.6 % (47-70); Platelet Count 205 K/mm3 (150-450); RBC Distribution Width CV 14.7 % (11.6-14.6); Red Blood Count 4.68 M/mm3 (4.2-5.4); White Blood Count 7.9 K/mm3 (4.4-11.0)
[2023-06-02 13:11] LABS: Vitamin D,25 Hydroxy 100.8 ng/mL
[2023-06-02 13:31] LABS: ALB/GLOB Ratio 0.7 RATIO (0.9-2.4); AST(SGOT) 27 U/L (15-37); Alanine Aminotransfer ALT/SGPT 21 U/L (13-56); Albumin, Serum 3.3 g/dL (3.2-5.0); Alkaline Phosphatase 98 U/L (45-117); Anion Gap 6 (5-15); BUN 27 mg/dL (7-18); BUN/Creat Ratio 22.1 RATIO (10-20); Calcium,Total 9.8 mg/dL (8.5-10.1); Chloride 105 mmol/L (98-107); Cholesterol 194 mg/dL (200); Creatinine, Serum 1.22 mg/dL (0.55-1.02); EST Glomerular Filtration Rate 45 mL/min (>60); Est Glom Filt Rate - Afr Amer 55 mL/min (>60); Globulin 4.7 g/dL (2.2-4.2); Glucose 83 mg/dL (74-106); High Density Lipoprotein 33 mg/dL; Potassium 4.4 mmol/L (3.5-5.1); Sodium Level 137 mmol/L (136-145); Thyroid Stim Hormone (TSH) 2.39 uIU/mL (0.358-3.74); Triglycerides 259 mg/dL; Very Low Density Lipoprotein 52 mg/dL (5-40)
[2023-06-02 14:28] LABS: Hemoglobin A1c 6.3 % (3.8-5.6)
== END | disposition home or self-care (01) ==
LOC: POLAB3 11:32
PROVIDERS: PCP Family Medicine Geriatric Medicine; Visit Provider Family Medicine Geriatric Medicine
DX: E78.5 Hyperlipidemia, unspecified (principal); E11.42 Type 2 diabetes mellitus with diabetic polyneuropathy; I10 Essential (primary) hypertension; E55.9 Vitamin D deficiency, unspecified
CPT/HCPCS: 36415; 80053; 80061; 82306; 83036; 84443; 85025

== ENCOUNTER → 2023-09-15 | Outpatient (CLI) | payer MEDICARE, SELFPAY ==
[2023-09-15 15:05] LABS: Absolute Lymphocyte Count 2.14 X10^3/uL (0.83-4.51); Basophil# 0.09 X10^3/uL; Basophil% 1.1 % (0-1); Eosinophil# 0.29 X10^3/uL; Eosinophils% 3.5 % (0-5); Hematocrit 40.4 % (37-47); Hemoglobin 13.1 g/dL (12.0-15.0); Lymphocyte # 2.14 X10^3/ul (0.83-4.51); Lymphocyte % 25.9 % (19-41); Mean Corp Hgb Conc 32.4 g/dL (32-36); Mean Corpuscular Hgb 29.1 pg (27.0-32.0); Mean Corpuscular Volume 89.8 fL (81-99); Mean Platelet Vol. 10.8 fl (6.2-12.0); Monocyte# 0.73 X10^3/uL; Monocyte% 8.8 % (0-10); NRBC Flagged by Analyzer 0 % (0-5); Neutrophil % 60.5 % (47-70); Platelet Count 190 K/mm3 (150-450); RBC Distribution Width CV 14.1 % (11.6-14.6); RBC Distribution Width SD 46.3 fl (35.1-43.9); White Blood Count 8.3 K/mm3 (4.4-11.0)
[2023-09-15 15:33] LABS: Vitamin D,25 Hydroxy 124.4 ng/mL
[2023-09-15 15:59] LABS: ALB/GLOB Ratio 0.8 RATIO (0.9-2.4); AST(SGOT) 26 U/L (15-37); Alanine Aminotransfer ALT/SGPT 24 U/L (13-56); Albumin, Serum 3.3 g/dL (3.2-5.0); Alkaline Phosphatase 92 U/L (45-117); Anion Gap 4 (5-15); BUN 24 mg/dL (7-18); BUN/Creat Ratio 21.6 RATIO (10-20); Calcium,Total 9.7 mg/dL (8.5-10.1); Chloride 105 mmol/L (98-107); Creatinine, Serum 1.11 mg/dL (0.55-1.02); EST Glomerular Filtration Rate 50 mL/min (>60); Est Glom Filt Rate - Afr Amer 61 mL/min (>60); Globulin 4.3 g/dL (2.2-4.2); Glucose 139 mg/dL (74-106); Potassium 4.7 mmol/L (3.5-5.1); Protein, Total 7.6 g/dL (6.4-8.2); Sodium Level 138 mmol/L (136-145); Thyroid Stim Hormone (TSH) 1.53 uIU/mL (0.358-3.74)
[2023-09-15 16:36] LABS: Protein, Urine (Random) 15.3 mg/dL (<11.9); Protein:Creat Ratio 153 mg/g CRE (0-200)
--- NOTE | 2023-09-15 17:00 | RAD_ITS ---
STUDY: X-RAY - CERVICAL SPINE REASON FOR EXAM: Female, 78 years old. Other spondylosis with myelopathy, cervical region TECHNIQUE: 3 view(s) of the cervical spine were obtained. COMPARISON: None FINDINGS: Normal anterior atlantoaxial articulation. Normal odontoid process. Normal cervical lordosis. 2 mm of anterolisthesis of C3 on C4. 2 mm of anterolisthesis of C7 on T1. Status post anterior cervical discectomy and fusion from C5 through C7 with anatomic alignment. Normal disc space heights. Normal visualized intervertebral neuroforamina. The soft tissue structures are unremarkable. RAD/Cerv Spine 2 or 3 Views IMPRESSION: Postsurgical changes and degenerative disc disease as described above. Electronically Signed: Collin Menendez MD at 21:52 EDT ,
== END | disposition home or self-care (01) ==
PROVIDERS: Internal Medicine Nephrology; PCP Family Medicine Geriatric Medicine; Referring Provider Anesthesiology Pain Medicine; Visit Provider Anesthesiology Pain Medicine
DX: E11.42 Type 2 diabetes mellitus with diabetic polyneuropathy (principal); I10 Essential (primary) hypertension; E55.9 Vitamin D deficiency, unspecified; M47.12 Other spondylosis with myelopathy, cervical region
CPT/HCPCS: 36415; 72040; 80053; 82306; 82570; 84156; 84443; 85025

== ENCOUNTER → 2023-12-08 | Outpatient (CLI) | payer MEDICARE, SELFPAY ==
[2023-12-08 14:52] LABS: Absolute Lymphocyte Count 2.52 X10^3/uL (0.83-4.51); Absolute Neutrophil Count 5.2 X10^3/uL (2.0-7.7); Basophil# 0.08 X10^3/uL; Basophil% 0.9 % (0-1); Eosinophil# 0.25 X10^3/uL; Eosinophils% 2.9 % (0-5); Hematocrit 41.7 % (37-47); Hemoglobin 13.6 g/dL (12.0-15.0); Lymphocyte # 2.52 X10^3/ul (0.83-4.51); Lymphocyte % 28.7 % (19-41); Mean Corp Hgb Conc 32.6 g/dL (32-36); Mean Corpuscular Hgb 29.1 pg (27.0-32.0); Mean Corpuscular Volume 89.3 fL (81-99); Mean Platelet Vol. 10.8 fl (6.2-12.0); Monocyte# 0.72 X10^3/uL; Monocyte% 8.2 % (0-10); NRBC Flagged by Analyzer 0 % (0-5); Neutrophil # 5.17 X10^3/uL (2.7-7.7); Platelet Count 156 K/mm3 (150-450); RBC Distribution Width CV 13.8 % (11.6-14.6); RBC Distribution Width SD 44.6 fl (35.1-43.9); Red Blood Count 4.67 M/mm3 (4.2-5.4); White Blood Count 8.8 K/mm3 (4.4-11.0)
[2023-12-08 15:17] LABS: ALB/GLOB Ratio 0.6 RATIO (0.9-2.4); AST(SGOT) 46 U/L (15-37); Alanine Aminotransfer ALT/SGPT 34 U/L (13-56); Albumin, Serum 3.1 g/dL (3.2-5.0); Alkaline Phosphatase 113 U/L (45-117); Anion Gap 6 (5-15); BUN 25 mg/dL (7-18); Calcium,Total 9.2 mg/dL (8.5-10.1); Chloride 105 mmol/L (98-107); Creatinine, Serum 1.25 mg/dL (0.55-1.02); EST Glomerular Filtration Rate 44 mL/min (>60); Est Glom Filt Rate - Afr Amer 53 mL/min (>60); Globulin 4.9 g/dL (2.2-4.2); Glucose 132 mg/dL (74-106); Potassium 4.3 mmol/L (3.5-5.1); Sodium Level 138 mmol/L (136-145); Thyroid Stim Hormone (TSH) 1.59 uIU/mL (0.358-3.74)
== END | disposition home or self-care (01) ==
LOC: POLAB3 14:15
PROVIDERS: PCP Family Medicine Geriatric Medicine; Visit Provider Family Medicine Geriatric Medicine
DX: E11.42 Type 2 diabetes mellitus with diabetic polyneuropathy (principal); I10 Essential (primary) hypertension; E55.9 Vitamin D deficiency, unspecified
CPT/HCPCS: 36415; 80053; 82306; 84443; 85025

== ENCOUNTER → 2024-01-10 | Outpatient (CLI) | payer MEDICARE, SELFPAY ==
[2024-01-10 11:43] LABS: Absolute Lymphocyte Count 2.08 X10^3/uL (0.83-4.51); Absolute Neutrophil Count 4.1 X10^3/uL (2.0-7.7); Basophil# 0.08 X10^3/uL; Basophil% 1.1 % (0-1); Eosinophils% 2.8 % (0-5); Hematocrit 38.8 % (37-47); Hemoglobin 12.7 g/dL (12.0-15.0); Lymphocyte # 2.08 X10^3/ul (0.83-4.51); Lymphocyte % 29.3 % (19-41); Mean Corp Hgb Conc 32.7 g/dL (32-36); Mean Corpuscular Hgb 29.4 pg (27.0-32.0); Mean Corpuscular Volume 89.8 fL (81-99); Mean Platelet Vol. 10.8 fl (6.2-12.0); Monocyte# 0.65 X10^3/uL; Monocyte% 9.1 % (0-10); NRBC Flagged by Analyzer 0 % (0-5); Neutrophil # 4.06 X10^3/uL (2.7-7.7); Neutrophil % 57.1 % (47-70); Platelet Count 188 K/mm3 (150-450); RBC Distribution Width CV 13.3 % (11.6-14.6); RBC Distribution Width SD 43.9 fl (35.1-43.9); Red Blood Count 4.32 M/mm3 (4.2-5.4); White Blood Count 7.1 K/mm3 (4.4-11.0)
[2024-01-10 11:55] LABS: International Normalized Ratio 1.1
[2024-01-10 11:56] LABS: Partial Thromboplast Time 26.6 Seconds (24.1-36.2)
[2024-01-10 12:23] LABS: ALB/GLOB Ratio 0.8 RATIO (0.9-2.4); AST(SGOT) 26 U/L (15-37); Alanine Aminotransfer ALT/SGPT 29 U/L (13-56); Albumin, Serum 3.1 g/dL (3.2-5.0); Alkaline Phosphatase 122 U/L (45-117); Anion Gap 6 (5-15); BUN 23 mg/dL (7-18); BUN/Creat Ratio 18.5 RATIO (10-20); Calcium,Total 9.4 mg/dL (8.5-10.1); Chloride 105 mmol/L (98-107); Creatinine, Serum 1.24 mg/dL (0.55-1.02); EST Glomerular Filtration Rate 44 mL/min (>60); Est Glom Filt Rate - Afr Amer 54 mL/min (>60); Globulin 4.1 g/dL (2.2-4.2); Glucose 132 mg/dL (74-106); Potassium 4.3 mmol/L (3.5-5.1); Protein, Total 7.2 g/dL (6.4-8.2); Sodium Level 139 mmol/L (136-145)
== END | disposition home or self-care (01) ==
LOC: POLAB3 11:29
PROVIDERS: PCP Family Medicine Geriatric Medicine; Visit Provider Family Medicine Geriatric Medicine
DX: R06.02 Shortness of breath (principal); I10 Essential (primary) hypertension
CPT/HCPCS: 36415; 80053; 85025; 85610; 85730

== ENCOUNTER 2024-01-25 12:10 | Inpatient (IN) | payer MEDICARE, SELFPAY ==
[2024-01-25 12:45] VITALS: BMI 34.4
[2024-01-25 12:53] VITALS: BP 142/46; PULSE 65; RESP 16; TEMP 36.3; O2SAT 96
[2024-01-25 12:58] VITALS: PULSE 65; RESP 16; O2SAT 96
--- NOTE | 2024-01-25 13:11 | NURSING ---
carli patch to rt upper chest dated 01/21/24
[2024-01-25] MEDS: oxyCODONE 5 MG Tablet PO (15:41)
--- NOTE | 2024-01-25 16:04 | NURSING ---
Daughter & concerned about pt continued hallucinations/confusion. reviewed medications. They are requesting ultram be changed to PRN instead of scheduled before therapy and leave tylenol scheduled as ordered for now. offered to have Dr Hernandez speak to them about their concerns and they declined for now.
[2024-01-25 17:35] LABS: Bedside Glucose 166 mg/dL (74-106)
[2024-01-25] MEDS: Insulin Lispro 100 UNIT/ML INSULN.PEN SC (17:55)
[2024-01-25] MEDS: Aspirin E.C. 81 MG Tablet PO (18:00)
[2024-01-25] MEDS: Carvedilol 6.25 MG Tablet PO (18:00)
--- NOTE | 2024-01-25 20:37 | HP.PCM_ITS ---
[facility] - General General Date of Admission: 01/25/24 Date of Service: 01/25/24 Chief Complaint: Here for rehabilitation. [facility] Narrative AMAYA EDWARDS, is a 78 Female who presents with followin01/19/2024 Admit to [facility]. 01/19/2024 Dr. Stratton performed right total hip arthroplasty after previous hip surgery, removal of hardware. 01/20/2024 WBAT RLE. Aspirin 81mg twice daily x 21 days DVT prophylaxis. Ancef 2gm q8 x 2 doses post operative prophylaxis. PT/OT. Hemoglobin 11.2. 01/21/2024 No acute events overnight. SNF at discharge. Chronic medical problems stable. 01/22/2024 No new issues. SNF at discharge, hemoglobin 10.7. 01/23/2024 Pain control, regular diet, WBAT. PT/OT recommends SNF. 01/25/2024 Admit to TCU with debility, here for rehabilitation, strengthening, prior to discharge home with daughter. [facility] Medical History (Updated 01/25/24 @ 20:[address] 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 Hyperlipidemia Diabetic polyneuropathy Chronic pain Depression Diabetes mellitus Chronic kidney disease, stage 3b Gastroesophageal reflux disease Coronary artery disease Hypertension Hyperkalemia Debility Hypertension Home Medications ?Medication ?Instructions ?Recorded ?Last Taken ?Type isosorbide mononitrate 30 mg 1 tab PO DAILY heart 11/05/21 Unknown History tablet,extended release 24 hr omeprazole 40 mg capsule,delayed 1 cap PO BID reflux 11/05/21 Unknown History release citalopram 10 mg tablet (Celexa) 10 mg PO DAILY depression 11/09/21 01/25/24 08:00 History albuterol sulfate 90 mcg/actuation 2 puff inhalation Q4H PRN 07/01/22 Unknown History aerosol inhaler amlodipine 5 mg tablet 5 mg PO DAILY Heart 07/01/22 01/25/24 08:05 History aspirin 81 mg tablet,delayed 81 mg PO BID Heart 07/01/22 Unknown History release carvedilol 6.25 mg tablet 6.25 mg PO BID BP 07/01/22 01/25/24 08:00 History insulin glargine U-300 conc 300 30 unit subcut QHS Diabetes 07/19/22 Unknown History unit/mL (3 mL) subcutaneous pen (Toujeo Max U-300 SoloStar) biotin 5 mg capsule 5 mg PO DAILY 07/21/22 Unknown History ferrous sulfate 325 mg (65 mg 325 mg PO DAILY 12/22/22 Unknown History iron) tablet (Feosol) magnesium chloride 71.5 mg 71.5 - 143 mg PO QHS PRN 12/22/22 Unknown History (magnesium chloride) Constipation tablet,delayed release (Slow-Mag) buprenorphine 15 mcg/hour weekly 1 patch transdermal QWEEK 08/18/23 Unknown History transdermal patch insulin lispro 100 unit/mL 5 - 10 unit subcut TID Diabetes 08/18/23 01/24/24 16:10 History subcutaneous pen nitroglycerin 0.4 mg sublingual 0.4 mg sublingual Q5M PRN chest 08/18/23 Unknown History tablet pain cetirizine 10 mg capsule (Zyrtec) 10 mg PO DAILY 01/10/24 Unknown History acetaminophen 325 mg capsule 650 mg PO Q6H PRN Pain 01/25/24 01/25/24 08:05 History buprenorphine 20 mcg/hour weekly 1 patch topical QWEEK Pain 01/25/24 01/21/24 15:10 History transdermal patch oxycodone 5 mg capsule 2.5 - 5 mg PO Q6H PRN pain 01/25/24 01/25/24 01:25 History pregabalin 150 mg capsule (Lyrica) 150 mg PO TID Nerve pain 01/25/24 01/25/24 08:05 History sennosides 8.6 mg tablet (Funmilayo-randolph) 8.6 mg PO BID Constipation 01/25/24 01/24/24 21:25 History Allergy/AdvReac Type Severity Reaction Status Date / Time tetanus and diphtheria Allergy Intermediate Syncope Verified 01/10/24 11:53 toxoids codeine Allergy Other Verified 01/10/24 11:53 metformin Allergy Hives Verified 01/10/24 11:53 [id number]-HUE-LiQ Reductase Allergy Other Verified 01/10/24 11:53 Inhibitor Sulfa (Sulfonamide Allergy Other Verified 01/10/24 11:53 Antibiotics) Family History Mother Hypertension Cancer Surgical History (Updated 01/25/24 @ 20:[address] Bryson Hernandez MD) History of total right hip arthroplasty History of tooth extraction History of hysterectomy H/O cervical spine surgery History of appendectomy History of cataract surgery Social History household members: family Smoking Status: Former smoker alcohol intake: never substance use type: does not use caffeine: Yes Type: coffee Number of servings: 1 ROS Constitutional Constitutional: Denies chills, fever(s) or weight gain ENT HEENT: Denies headache(s), nasal congestion or nasal discharge Cardiovascular Cardiovascular: Denies chest pain or palpitations Respiratory/Chest Respiratory/Chest: Denies cough, excessive phlegm production or shortness of breath with exertion Gastrointestinal Gastrointestinal: Denies abdominal pain, nausea or vomiting Genitourinary Genitourinary: Denies dysuria Musculoskeletal Musculoskeletal: Denies joint pain or joint swelling Integumentary Integumentary: Denies rash or wounds Neurologic Neurologic: Denies focal weakness, numbness or tingling Psychiatric Psychiatric: Denies anxiety, auditory hallucinations, depression, homicidal ideation or suicidal ideation Vital Signs Vital Signs Vital Signs: 01/25/24 12:53 01/25/24 12:58 Temperature 97.3 F L Temperature Source Temporal Pulse Rate 65 65 Pulse Rhythm Regular Pulse Strength Normal (2+) Respiratory Rate 16 16 Respiratory Effort Normal Non-Labored Respiratory Depth Normal Respiratory Pattern Normal Blood Pressure 142/46 H Blood Pressure Mean 78 Blood Pressure Source Monitor Blood Pressure Position Semi-Fowlers Blood Pressure Location Left Arm Pulse Ox 96 96 Oxygen Delivery Method Room Air Room Air Weight Weight: 93.894 kg Body Mass Index (BMI) 34.4 Physical Exam Const alert General Appearance: cooperative HEENT normocephalic Eyes PERRL and EOMs intact bilaterally Neck supple, no JVD and no carotid bruits Resp normal respiratory effort, normal air movement and clear to auscultation bilaterally Cardio regular rate and regular rhythm GI normal to inspection, nondistended, normoactive bowel sounds, non-tender and non-distended Extremity normal capillary refill Extremity Narrative: Right hip incision clean, dry, intact. General Extremity: Negative for edema Skin no rashes or lesions noted General Skin Exam: no breakdown Psych affect normal Appearance: appropriate Results Lab / Micro Data Labs: Laboratory Results - last 24 hr 01/25/24 17:17: POC Glucose 166 H Assessment & Plan Assessment/Plan (1) Debility: (2) Osteoarthritis of right hip: (3) Status post total hip replacement, right: (4) Diabetes mellitus: QUALIFIERS: Diabetes mellitus complication detail: with chronic kidney disease Diabetes mellitus complication status: with kidney complications Diabetes mellitus mcfp insulin use: with long term care social worker use Diabetes mellitus type: type 2 (5) Essential (primary) hypertension: (6) Hyperlipidemia: (7) Gastroesophageal reflux disease: (8) Coronary artery disease: (9) Depression: (10) Diabetic polyneuropathy: (11) Chronic pain: PLAN: Plan 78 year old female with below past medical history underwent right total hip arthroplasty after previous hip surgery, removal of hardware 01/19/[address] Stratton, postoperative course uncomplicated, admitted to TCU with debility, here for rehabilitation, strengthening, prior to discharge home with daughter. * Debility - PT/OT. * Pain - Tylenol 1000mg q6 prn pain (1-3), Oxycodone 5mg q4 prn pain (4-10), Butrans 10mcg 2 patches td qweek. * Bowel - senna/colace 2 tablets bid, Magnesium citrate 300ml daily prn. * Adult immunization - Administer pneumonia vaccine, covid vaccine, flu vaccine as appropriate. * DVT prophylaxis - Aspirin 81mg bid thru 02/15/2024, then Aspirin 81mg daily thru 03/09/2024. * Hypertension - Coreg 6.25mg bid, Amlodipine 5mg daily. * Coronary artery disease - Coreg 6.25mg bid, Imdur 30mg daily, Aspirin 81mg daily, NTG 0.4mg sl q5m prn. * Allergic rhinitis - Zyrtec 10mg daily. * Depression - Citalopram 10mg daily, stable chronic mcfp use, GDR not recommended. * Diabetes Mellitus II - Glargine 30 units qhs, Lispro 5-10 units tdac. * Leg cramps - Slow-Mg 71.5mg qhs. * Skin irritation - Calmoseptine topical bid. * Tinea Corporis - Nystatin powder topical bid. * GERD - Pantoprazole 40mg bid. * Diabetic polyneuropathy - Lyrica 150mg tid.
[2024-01-25] MEDS: Insulin Glargine-YFGN 100 UNIT/ML Pen 30 UNIT SC (21:29)
[2024-01-25] MEDS: Pregabalin 75 MG Capsule 150 MG PO (21:30)
[2024-01-25] MEDS: Menthol/Lanolin/Calamine/Znox 113 GM Tube 1 APPLIC TOPICAL (21:30)
[2024-01-25] MEDS: Pantoprazole Sodium 40 MG Tablet PO (21:31)
[2024-01-25] MEDS: Nystatin Powder 15gm Bottle 1 APPLIC TOPICAL (21:31)
[2024-01-25] MEDS: MAGNESIUM CHLORIDE 71.5 MG PO (21:33)
[2024-01-25] MEDS: Senna/Docusate Sodium 1 Tablet 2 TABLET PO (21:40)
[2024-01-25 21:51] LABS: Bedside Glucose 174 mg/dL (74-106)
[2024-01-26] MEDS: Pregabalin 75 MG Capsule 150 MG PO ×3 (06:46→21:50)
--- NOTE | 2024-01-26 06:57 | NURSING ---
Patient tolerating transfers well and cooperative with call light use.
[2024-01-26 07:09] LABS: Bedside Glucose 112 mg/dL (74-106)
[2024-01-26 07:17] VITALS: BP 126/58; PULSE 77
[2024-01-26] MEDS: Aspirin E.C. 81 MG Tablet PO ×2 (07:18→17:20)
[2024-01-26] MEDS: Carvedilol 6.25 MG Tablet PO ×2 (07:18→17:20)
[2024-01-26] MEDS: oxyCODONE 5 MG Tablet PO ×2 (07:18→16:44)
[2024-01-26] MEDS: Insulin Lispro 100 UNIT/ML INSULN.PEN SC ×3 (09:05→18:45)
[2024-01-26] MEDS: Menthol/Lanolin/Calamine/Znox 113 GM Tube 1 APPLIC TOPICAL ×2 (09:06→21:55)
[2024-01-26] MEDS: Isosorbide Mononitrate 30 MG Tablet PO (09:07)
[2024-01-26] MEDS: Citalopram 10 MG Tablet PO (09:07)
[2024-01-26] MEDS: Nystatin Powder 15gm Bottle 1 APPLIC TOPICAL ×2 (09:08→21:55)
[2024-01-26] MEDS: amLODIPine 5 MG Tablet PO (09:08)
[2024-01-26] MEDS: Senna/Docusate Sodium 1 Tablet 2 TABLET PO ×2 (09:09→21:51)
[2024-01-26] MEDS: Pantoprazole Sodium 40 MG Tablet PO ×2 (09:09→21:51)
[2024-01-26] MEDS: CETIRIZINE HCL 10 MG TABLET PO (09:10)
[2024-01-26 09:33] LABS: Bedside Glucose 228 mg/dL (74-106)
--- NOTE | 2024-01-26 11:15 | NURSING ---
Table Tender Sludge Note; Activity Asset: Ana Zhu prefers to be called Sherice. She is independent in her choice of daily activities. She has her smartphone and tablet. She plays her casino game and talks w/family. Sherice requested the [employer] football schedule and visits from the applications instructor and therapy dog when available. Staff will encourage social activities, remind her of weekly activities and respect her right to say no.
[2024-01-26 11:40] LABS: Bedside Glucose 196 mg/dL (74-106)
[2024-01-26] MEDS: Tuberculin,Purif.prot.deriv. 50 TU/ML Vial 0.1 ML ID (12:45)
--- NOTE | 2024-01-26 13:15 | PCM.PN.DRR ---
TCU RX Drug Regimen Review Subjective/Objective Subjective/Objective: Subjective: 78 YOF admitted to TCU 01/25/24 s/p right total hip arthroplasty at an outside facility. Patient admitted to [facility] TCU for strengthening and rehabilitation prior to discharge home where she resides with a daughter. Objective: Allergies tetanus and diphtheria toxoids Allergy (Intermediate, Verified 01/10/24 11:53) Syncope codeine Allergy (Verified 01/10/24 11:53) Other metformin Allergy (Verified 01/10/24 11:53) Hives [id number] Reductase Inhibitor Allergy (Verified 01/10/24 11:53) Other Sulfa (Sulfonamide Antibiotics) Allergy (Verified 01/10/24 11:53) Other Current Medications Generic Name Dose Route Start Last Admin Trade Name Freq PRN Reason Stop Dose Admin Acetaminophen 1,000 mg 01/25/24 17:08 Acetaminophen 500 Mg Tablet PO Q6H PRN Pain Score 1-3 Amlodipine Besylate 5 mg 01/26/24 10:00 01/26/24 09:08 Amlodipine 5 Mg Tablet PO 5 mg DAILY TYRESE Administration Protocol Aspirin 81 mg 01/25/24 17:00 01/26/24 07:18 Aspirin E.C. 81 Mg Tablet PO 02/15/24 17:01 81 mg BIDCM TYRESE Administration Aspirin 81 mg 02/17/24 08:00 Aspirin E.C. 81 Mg Tablet PO 03/09/24 08:01 [facility] Buprenorphine 2 patch 01/28/24 14:12 Buprenorphine 10 Mcg Patch.Tdwk TD SA [facility] Calamine/Phenol 1 applic 01/25/24 22:00 01/26/24 09:06 Menthol/Lanolin/Calamine/Znox 113 Gm Tube TOPICAL 1 applic BID TYRESE Administration Protocol Carvedilol 6.25 mg 01/25/24 17:00 01/26/24 07:18 Carvedilol 6.25 Mg Tablet PO 6.25 mg BIDCM [facility] Administration Protocol Cetirizine HCl 10 mg 01/26/24 10:00 01/26/24 09:10 Cetirizine Hcl 10 Mg Tablet PO 10 mg DAILY TYRESE Administration Citalopram Hydrobromide 10 mg 01/26/24 10:00 01/26/24 09:07 Citalopram 10 Mg Tablet PO 10 mg DAILY TYRESE Administration Insulin Glargine 30 unit 01/25/24 22:00 01/25/24 21:29 Insulin Glargine-Yfgn 100 Unit/Ml Pen SC 20 unit QHS TYRESE Administration Insulin Human Lispro 5 - 10 unit 01/25/24 16:45 01/26/24 12:44 Insulin Lispro 100 Unit/Ml Insuln.Pen SC 5 u TIDAC TYRESE Administration Isosorbide Mononitrate 30 mg 01/26/24 10:00 01/26/24 09:07 Isosorbide Mononitrate 30 Mg Tablet PO 30 mg DAILY TYRESE Administration Protocol Magnesium Chloride 71.5 mg 01/25/24 22:00 01/25/24 21:33 Magnesium Chloride 71.5 Mg Tablet.Dr PO 71.5 mg QHS TYRESE Administration Magnesium Citrate 300 ml 01/25/24 20:53 Magnesium Citrate 300 Ml PO DAILY PRN Constipation Nitroglycerin 0.4 mg 01/25/24 14:04 Nitroglycerin (Inpatient Use) 0.4 Mg Tab.Subl SL Q5M PRN chest pain Nystatin 1 applic 01/25/24 22:00 01/26/24 09:08 Nystatin Powder 15gm Bottle TOPICAL 1 applic BID [facility] Administration Protocol Oxycodone HCl 5 mg 01/25/24 17:08 01/26/24 07:18 Oxycodone 5 Mg Tablet PO 5 mg Q4H PRN PRN Administration Pain Score 4-10 or Pre PT/OT Pantoprazole Sodium 40 mg 01/25/24 22:00 01/26/24 09:09 Pantoprazole Sodium 40 Mg Tablet PO 40 mg BID TYRESE Administration Pregabalin 150 mg 01/25/24 22:00 01/26/24 06:46 Pregabalin 75 Mg Capsule PO 150 mg TID TYRESE Administration Senna/Docusate Sodium 2 tablet 01/25/24 22:00 01/26/24 09:09 Senna/Docusate Sodium 1 Tablet PO 2 tablet BID TYRESE Administration Tuberculin PPD 0.1 ml 02/02/24 10:00 Tuberculin,Purif.Prot.Deriv. 50 Tu/Ml Vial ID 02/02/24 10:01 X1 ONE Problem List Essential (primary) hypertension (Acute) Status post total hip replacement, right (Acute) Osteoarthritis of right hip (Acute) Hyperlipidemia (Acute) Diabetic polyneuropathy (Acute) Chronic pain (Chronic) Depression (Acute) Diabetes mellitus (Acute) Gastroesophageal reflux disease (Acute) Coronary artery disease (Acute) Debility (Acute) Vital Signs Temp Pulse Resp BP Pulse Ox O2 Del Method 97.3 F L 77 16 126/58 H 96 Room Air 01/25/24 12:53 01/26/24 07:17 01/25/24 12:58 01/26/24 07:17 01/25/24 12:58 01/25/24 12:58 Oxygen Delivery Method Room Air Weight: 93.894 kg Body Mass Index (BMI) 34.4 Assessment/Plan: 1. Pain: Butrans Patch 10mcg patch 2 patches topically once weekly, Tylenol 1000mg PO Q6h PRN Pain 1-3, Oxycodone 5mg PO Q4h PRN Pain 4-10. Please continue to monitor for increased/decreased S/S pain, PRN medication, skin irritation with patch use, irritation, constipation, nausea/vomiting. 2. Post-op DVT Prophylaxis: Aspirin 81mg PO BID thru 03/09/24 then 81mg PO Daily thereafter. Please continue to monitor for S/S DVT formation, S/S bleeding/bruising, H/H (hgb 12.7, hct 38.8 on 01/10/24). 3. CAD/HTN: Norvasc 5mg PO Daily, Coreg 6.25mg PO BID, Imdur 30mg PO Daily, Nitrostat SL PRN. Please continue to monitor BP (last 126/58), pulse (last 77 BPM), dizziness, lower extremity swelling/flushing. 4. Type II Diabetes: Insulin Glargine 30 unit SC QHS, Humalog sliding scale SC TIDAC. Please continue to monitor for S/S hypoglycemia, blood glucose (range 112-196), A1c (6.3% on 05/2023), injection site irritation. 5. GERD: Protonix 40mg PO BID. Please continue to monitor for upset stomach, bloating, gas, headache. Please also encourage non-pharmacologic treatments to help minimize GERD exacerbations as well, thank you. 6. Allergic Rhinitis: Zyrtec 10mg PO Daily. Please continue to monitor for improvement in symptoms. 7. Diabetic Neuropathy: Lyrica 150mg PO TID. This is a BEER's criteria medication which can increase the risk of falls/fractures in patients >65 years of age. Please continue to monitor patient closely for falls, especially given recent orthopedic surgery on her hip, thank you. 8. General Wellness: Magnesium Chloride 71.5mg PO QHS. 9. Skin Integrity: Nystatin powder topically BID, Calmoseptine topically BID. Please continue to monitor for redness, skin irritation, ulcer formation. 10. Bowel: Senna/Docusate 2 PO BID, Magnesium Citrate 300mL PO Daily PRN. Please continue to monitor for increased/decreased constipation and/or diarrhea. -To date, the patient has not had a documented BM (admit <24hrs). If no BM in the next 48hrs, please consider giving PRN medication to help facilitate a BM. Assessment/Plan for indications treated with psychotropic medications: 1. Depression: Citalopram 10mg PO Daily. Please consider a GDR by 07/2024 if clinically indicated, thank you. Medical chart and medication regimen reviewed. The following medication irregularities or issues were identified: 1 Type II Diabetes: The patient's blood glucose levels have been slightly elevated since admission. Please continue to monitor closely and consider increasing long acting insulin to help regulate BG levels. Additionally, it has been since 05/2023 sine a last A1c was drawn. Please consider obtaining an updated A1c to assess glycemic control at that time. Date Date of Note:: 01/26/24
[2024-01-26 13:40] VITALS: BP 98/48; PULSE 67; RESP 16; TEMP 36.7
[2024-01-26 16:56] LABS: Bedside Glucose 147 mg/dL (74-106)
--- NOTE | 2024-01-26 18:18 | NURSING ---
Per Dr. David puckett to give pt. discretion of range of insulin from 5-10units of humalog.
[2024-01-26 21:36] LABS: Bedside Glucose 179 mg/dL (74-106)
[2024-01-26] MEDS: Insulin Glargine-YFGN 100 UNIT/ML Pen 30 UNIT SC (21:51)
[2024-01-26] MEDS: MAGNESIUM CHLORIDE 71.5 MG PO (21:51)
[2024-01-27] MEDS: Pregabalin 75 MG Capsule 150 MG PO ×3 (05:40→22:06)
[2024-01-27 06:33] LABS: Bedside Glucose 106 mg/dL (74-106)
[2024-01-27 07:09] LABS: Absolute Lymphocyte Count 2.42 X10^3/uL (0.83-4.51); Absolute Neutrophil Count 4.5 X10^3/uL (2.0-7.7); Basophil% 1.2 % (0-1); Eosinophil# 0.49 X10^3/uL; Eosinophils% 5.7 % (0-5); Hematocrit 34.3 % (37-47); Hemoglobin 11.2 g/dL (12.0-15.0); Lymphocyte # 2.42 X10^3/ul (0.83-4.51); Lymphocyte % 28.3 % (19-41); Mean Corp Hgb Conc 32.7 g/dL (32-36); Mean Corpuscular Hgb 30.2 pg (27.0-32.0); Mean Corpuscular Volume 92.5 fL (81-99); Monocyte# 0.97 X10^3/uL; Monocyte% 11.3 % (0-10); NRBC Flagged by Analyzer 0 % (0-5); Neutrophil # 4.52 X10^3/uL (2.7-7.7); Neutrophil % 52.8 % (47-70); Platelet Count 229 K/mm3 (150-450); RBC Distribution Width CV 13.5 % (11.6-14.6); RBC Distribution Width SD 45.6 fl (35.1-43.9); Red Blood Count 3.71 M/mm3 (4.2-5.4); White Blood Count 8.6 K/mm3 (4.4-11.0)
[2024-01-27 07:55] LABS: Anion Gap 2 (5-15); BUN 16 mg/dL (7-18); Calcium,Total 9.2 mg/dL (8.5-10.1); Chloride 105 mmol/L (98-107); EST Glomerular Filtration Rate 57 mL/min (>60); Est Glom Filt Rate - Afr Amer 69 mL/min (>60); Estimated Creatinine Clearance 51.68 ml/min; Glucose 116 mg/dL (74-106); Potassium 4.2 mmol/L (3.5-5.1); Sodium Level 139 mmol/L (136-145)
[2024-01-27] MEDS: Aspirin E.C. 81 MG Tablet PO ×2 (09:14→16:03)
[2024-01-27] MEDS: Citalopram 10 MG Tablet PO (09:14)
[2024-01-27] MEDS: Pantoprazole Sodium 40 MG Tablet PO ×2 (09:18→22:09)
[2024-01-27] MEDS: Isosorbide Mononitrate 30 MG Tablet PO (09:18)
[2024-01-27] MEDS: Senna/Docusate Sodium 1 Tablet 2 TABLET PO ×2 (09:19→22:08)
[2024-01-27] MEDS: CETIRIZINE HCL 10 MG TABLET PO (09:19)
[2024-01-27] MEDS: Nystatin Powder 15gm Bottle 1 APPLIC TOPICAL ×2 (09:20→22:12)
[2024-01-27] MEDS: Menthol/Lanolin/Calamine/Znox 113 GM Tube 1 APPLIC TOPICAL ×2 (09:20→22:13)
[2024-01-27 11:29] LABS: Bedside Glucose 131 mg/dL (74-106)
--- NOTE | 2024-01-27 13:39 | CASEMGMT ---
Addendum entered by Deepika Gonzalez 01/27/24 13:40: SW confirmed code status with pt as full code. Original Note: Social Work SW met with patient to complete initial assessment. Introduced self and role. Verified contacts. Educated to [facility] insurance with [employer] 01/26 and continued stay is not guaranteed with each review. Pt's goal is to return home living with dtr and her family. SW will continue to follow for DC planning. Deepika Gonzalez, MAYRA MORRISSEYW
[2024-01-27] MEDS: oxyCODONE 5 MG Tablet PO (14:37)
--- NOTE | 2024-01-27 15:24 | CHAPLAIN ---
Type of Pastoral Visit ___ Initial Visit ___ Follow-up Visit ___ On-call Visit ___ General Patient Visit ___ Spiritual Assessment ___ Family Conference ___ Bereavement ___ Rapid Response ___ Code Blue ___ Other (describe below) Pastoral Care Referral From ___ Patient ___ Family ___ Nurse ___ Physician ___ Peer Counselor ___ Grain Elevator Agent ___ Other (describe below) Sacrament/Intervention ___ Active listening ___ Anointing ___ Latter-Day ___ Bereavement ___ Communion ___ Freda exploration ___ ___ Life review ___ Prayer ___ Reconciliation ___ Sacrament of Sick ___ Supportive presence ___ Wedding ___ Other (describe below) Pastoral Comments patient was receiving therapy at time of attempted visit
[2024-01-27 16:00] VITALS: BP 111/47; PULSE 65; RESP 16; TEMP 36.1; O2SAT 94
[2024-01-27] MEDS: Carvedilol 6.25 MG Tablet PO (16:02)
[2024-01-27 16:29] LABS: Bedside Glucose 213 mg/dL (74-106)
[2024-01-27] MEDS: Insulin Lispro 100 UNIT/ML INSULN.PEN SC (17:52)
[2024-01-27 21:48] LABS: Bedside Glucose 165 mg/dL (74-106)
[2024-01-27] MEDS: Insulin Glargine-YFGN 100 UNIT/ML Pen 30 UNIT SC (22:07)
[2024-01-27] MEDS: MAGNESIUM CHLORIDE 71.5 MG PO (22:08)
[2024-01-28] MEDS: Pregabalin 75 MG Capsule 150 MG PO ×3 (05:01→22:10)
[2024-01-28 06:28] LABS: Bedside Glucose 138 mg/dL (74-106)
[2024-01-28] MEDS: Citalopram 10 MG Tablet PO (09:11)
[2024-01-28] MEDS: Aspirin E.C. 81 MG Tablet PO ×2 (09:11→17:17)
[2024-01-28] MEDS: Pantoprazole Sodium 40 MG Tablet PO ×2 (09:12→22:12)
[2024-01-28] MEDS: Isosorbide Mononitrate 30 MG Tablet PO (09:12)
[2024-01-28] MEDS: CETIRIZINE HCL 10 MG TABLET PO (09:12)
[2024-01-28] MEDS: Senna/Docusate Sodium 1 Tablet 2 TABLET PO ×2 (09:12→22:12)
[2024-01-28] MEDS: Menthol/Lanolin/Calamine/Znox 113 GM Tube 1 APPLIC TOPICAL ×2 (09:21→22:18)
[2024-01-28] MEDS: Nystatin Powder 15gm Bottle 1 APPLIC TOPICAL ×2 (09:21→22:19)
[2024-01-28 12:29] LABS: Bedside Glucose 184 mg/dL (74-106)
[2024-01-28 12:29] LABS: Bedside Glucose 149 mg/dL (74-106)
[2024-01-28 12:35] VITALS: BP 119/50; PULSE 68; RESP 16; TEMP 36.3; O2SAT 96
[2024-01-28] MEDS: Buprenorphine 10 MCG PATCH.TDWK 2 PATCH TD (14:27)
--- NOTE | 2024-01-28 14:29 | NURSING ---
Old Butrans patch wasted with AUTH SPECIALIST in medication destroyer. New Butrans patch applied to L side of chest.
[2024-01-28 18:16] LABS: Bedside Glucose 158 mg/dL (74-106)
[2024-01-28] MEDS: Insulin Lispro 100 UNIT/ML INSULN.PEN SC (18:19)
[2024-01-28] MEDS: Insulin Glargine-YFGN 100 UNIT/ML Pen 30 UNIT SC (22:11)
[2024-01-28] MEDS: MAGNESIUM CHLORIDE 71.5 MG PO (22:12)
[2024-01-28 22:15] LABS: Bedside Glucose 160 mg/dL (74-106)
[2024-01-28] MEDS: oxyCODONE 5 MG Tablet PO (22:17)
[2024-01-29] MEDS: Acetaminophen 500 MG Tablet 1000 MG PO (00:55)
[2024-01-29] MEDS: Pregabalin 75 MG Capsule 150 MG PO ×3 (05:10→21:56)
[2024-01-29 05:38] LABS: Bedside Glucose 131 mg/dL (74-106)
[2024-01-29] MEDS: oxyCODONE 5 MG Tablet PO (06:08)
[2024-01-29 06:10] VITALS: BP 121/54; PULSE 78; RESP 18; TEMP 36.9; O2SAT 94
[2024-01-29] MEDS: Carvedilol 6.25 MG Tablet PO ×2 (08:46→16:57)
[2024-01-29] MEDS: Aspirin E.C. 81 MG Tablet PO ×2 (08:48→16:58)
[2024-01-29] MEDS: Senna/Docusate Sodium 1 Tablet 2 TABLET PO ×2 (08:49→21:53)
[2024-01-29] MEDS: Pantoprazole Sodium 40 MG Tablet PO ×2 (08:49→21:52)
[2024-01-29] MEDS: Citalopram 10 MG Tablet PO (08:50)
[2024-01-29] MEDS: amLODIPine 5 MG Tablet PO (08:50)
[2024-01-29] MEDS: Isosorbide Mononitrate 30 MG Tablet PO (08:50)
[2024-01-29] MEDS: Menthol/Lanolin/Calamine/Znox 113 GM Tube 1 APPLIC TOPICAL ×2 (08:53→21:53)
[2024-01-29] MEDS: CETIRIZINE HCL 10 MG TABLET PO (08:54)
[2024-01-29] MEDS: Insulin Lispro 100 UNIT/ML INSULN.PEN SC ×3 (08:54→16:58)
[2024-01-29] MEDS: Nystatin Powder 15gm Bottle 1 APPLIC TOPICAL ×2 (09:00→21:53)
[2024-01-29 12:27] LABS: Bedside Glucose 179 mg/dL (74-106)
[2024-01-29 16:00] VITALS: BP 125/52; PULSE 72; RESP 16; TEMP 36.7; O2SAT 94
[2024-01-29 16:51] LABS: Bedside Glucose 151 mg/dL (74-106)
[2024-01-29] MEDS: Insulin Glargine-YFGN 100 UNIT/ML Pen 30 UNIT SC (21:50)
[2024-01-29] MEDS: MAGNESIUM CHLORIDE 71.5 MG PO (21:50)
[2024-01-29 22:11] LABS: Bedside Glucose 149 mg/dL (74-106)
[2024-01-30] MEDS: Acetaminophen 500 MG Tablet 1000 MG PO ×2 (00:33→22:58)
[2024-01-30] MEDS: oxyCODONE 5 MG Tablet PO ×3 (00:39→22:59)
[2024-01-30] MEDS: Pregabalin 75 MG Capsule 150 MG PO ×3 (05:43→20:03)
[2024-01-30 06:19] LABS: Bedside Glucose 124 mg/dL (74-106)
[2024-01-30] MEDS: Carvedilol 6.25 MG Tablet PO ×2 (07:57→17:06)
[2024-01-30] MEDS: Aspirin E.C. 81 MG Tablet PO ×2 (07:58→17:07)
[2024-01-30] MEDS: Insulin Lispro 100 UNIT/ML INSULN.PEN SC ×2 (10:03→12:50)
[2024-01-30] MEDS: Senna/Docusate Sodium 1 Tablet 2 TABLET PO ×2 (10:06→20:03)
[2024-01-30] MEDS: CETIRIZINE HCL 10 MG TABLET PO (10:06)
[2024-01-30] MEDS: Isosorbide Mononitrate 30 MG Tablet PO (10:06)
[2024-01-30] MEDS: Pantoprazole Sodium 40 MG Tablet PO ×2 (10:06→20:03)
[2024-01-30] MEDS: Citalopram 10 MG Tablet PO (10:06)
[2024-01-30] MEDS: amLODIPine 5 MG Tablet PO (10:06)
[2024-01-30] MEDS: Nystatin Powder 15gm Bottle 1 APPLIC TOPICAL ×2 (10:11→20:01)
[2024-01-30] MEDS: Menthol/Lanolin/Calamine/Znox 113 GM Tube 1 APPLIC TOPICAL ×2 (10:12→20:01)
--- NOTE | 2024-01-30 10:42 | ST.MBS ---
Modified Barium Swallow Patient Information Study Date: 01/30/24 Study Time: 09:30 Direct Billable Minutes: 89 Total Minutes procedure & reportin Diagnosis: GERD K21.9; Debility R53.81 Referring Physician: Bryson Hernandez Chi Reason for Referral: Objectively assess swallow function, assess risk for aspiration, and determine recommendations for least restrictive diet textures and compensatory strategies to improve safety of swallow. Medical History: 01/19/2024 Pt was admitted to [facility]. Dr. Stratton performed right total hip arthroplasty after previous hip surgery, removal of hardware. 01/20/2024 WBAT RLE. PT/OT recommends SNF. 01/25/2024 Admit to TCU with debility, here for rehabilitation, strengthening, prior to discharge home with daughter. During stay on TCU, patient informed baker second of concern for swallowing difficulty. Pt was referred for ST consult. 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 BSE completed 01/27/2024 and TECHNICAL SALES DIRECTOR recommended Regular textures / Thin liquids w/ Distant supervision and plans for MBSS today to further assess aspiration risk. MBSS to include esophageal screens to assess concerns for reflux aspiration risk. Current Diet Ordered: Regular textures / Thin liquids Dentition: Missing Teeth Mental Status: WNL Respiratory Status: Oxygenating on Room Air Penetration-Aspiration Scale Penetration-Aspiration Scale: OBJECTIVE ASSESSMENT OF SWALLOW FUNCTION (QUANTITATIVE ? PER TRIAL): PENETRATION / ASPIRATION SCALE (ALLEN): 1 = does not enter airway 2 = enters airway/above vocal folds/ejected 3 = enters airway/above vocal folds/not ejected 4 = enters airway/contacts vocal folds/ejected 5 = enters airway/contacts vocal folds/not ejected 6 = enters airway/below vocal folds/ejected 7 = enters airway/below vocal folds/not ejected despite effort 8 = enters airway/below vocal folds/no effort VIDEOFLOROSCOPIC SCALE SCORE (ALLEN): Grade I = aspiration of material that has penetrated into the laryngeal vestibule, intact cough reflex Grade II = aspiration < 10 % of the bolus, intact cough reflex Grade III = aspiration of < 10 % of the bolus, reduced cough reflex or aspiration of > 10 % of the bolus, intact cough reflex Grade IV = aspiration of > 10 % of the bolus, reduced cough reflex Penetration-Aspiration Scale Score Thin Liquid via teaspoon: Result: 1= does not enter airway Thin Liquid via teaspoon Trial 2: Result: 1= does not enter airway Thin Liquid via sequential sips: cup: Result: 1= does not enter airway Comment: Esophageal screen - Complete clearance. Pudding via teaspoon: Result: 1= does not enter airway Comment: Esophageal screen - Trace retention in UES. Retention of pudding bolus in the upper-mid esophagus. Thin Liquid via single sip: straw: Result: 1= does not enter airway Comment: Esophageal screen - Liquid barium appeared to clear; however, pudding retention remained in upper-mid esophagus. Thin Liquid via sequential sips:straw: Result: 1= does not enter airway Comment: Esophageal clearance - Liquid barium appeared to clear; however, majority of pudding retention remained in upper-mid esophagus. 1/2 Cookie: Result: 1= does not enter airway Comment: Esophageal screen - Retention in the upper-mid esophagus. Oral Phase Labial Seal: No Labial Escape Tongue Control During Bolus Hold: Posterior escape of less than half of bolus Bolus Preparation/Mastication: Timely and efficient chewing and mashing Bolus Transport/Lingual Motion: Delayed initiation of tongue motion Oral Residue: Trace residue lining oral structures Pharyngeal Phase Initiation of Pharyngeal Swallow: Bolus head in pyriforms Soft Palate Elevation: Trace column of contrast/air between soft palate and pharyngeal wall Laryngeal Elevation: Comp. Superior move thyroid cart w/comp. apprx arytenoid cart-epig pet Anterior Hyoid Excursion: Partial anterior movement Epiglottic Movement: Complete inversion Laryngeal Vestibule Closure at Height of Swallow: Complete; no air/contrast in laryngeal vestibule Pharyngeal Stripping Wave: Present - complete Pharyngoesophageal Segment Opening: Parital distension and partial duration; parital obstruction of flow Tongue Base Retraction: Narrow column of contrast between tongue base & post. pharyngeal wall Pharyngeal Residue: Trace residue within or on pharyngeal structures Esophageal Phase Esophageal Clearance: Esophageal retention Diagnosis/Impression Diagnosis: Oropharyngeal swallow function grossly WNL; Esophageal dysphagia R13.14 Impression: Oropharyngeal swallow function is grossly WNL. Min posterior loss of large thin liquid boluses to pyriforms prior to swallow onset. Swallow onset is in the pyriforms, likely due to patient's age. However, patient demonstrates excellent airway closure during the swallow. No laryngeal penetration or aspiration. The esophageal phase is primarily marked by... -Cricopharyngeal bar at C4-C5 with trace retention of pudding in the UES. -Retention of pudding and cookie in the upper-mid esophagus with little improvement when provided liquid wash. Patient reports sensation of food coming up into throat and mouth during meals - TECHNICAL SALES DIRECTOR is concerned the patient is at risk for reflux aspiration. Recommend consult to GI. Recommendations Diet: Regular Textures and Thin Liquids Comment: If sensation of retention and reflux at meals despite use of strategies, stop meal and resume at a later time. Compensatory Strategies: Small Bites, Small Sips, Slow Rate, Alternate bites/solids and sips/liquids (1:1 ratio), Sitting upright and Remain sitting upright for 30 minutes after PO intake (60 min after oral intake) Recommend Repeat Modified Barium Swallow: No Need for Skilled Speech Therapy Services: Yes Comment: Follow 2-3 additional sessions for education re: strategies to decrease risk for reflux aspiration. Train the patient in Nicci exercise to promote improved swallow onset; however, oropharyngeal swallow function appears grossly WNL. Recommended Referrals: GI Consult Education Completed: 1. Described result of evaluation. and 2. Pt understands evaluation & agrees with goals and treatment plan. Status Active ST Patient: Active Contact Information [facility] Speech Therapy:: Clare Murphy M.A. [facility]3]-TECHNICAL SALES DIRECTOR? Speech-Language Pathologist?? [facility] [address] [place] [address]? [email or web address]?? [phone]
[2024-01-30 11:22] LABS: Bedside Glucose 170 mg/dL (74-106)
--- NOTE | 2024-01-30 11:40 | NURSING ---
carlos swallow complete, speech recommends GI consult, awaiting for Dr Hernandez for orders
[2024-01-30 14:29] VITALS: BP 105/45; PULSE 64; RESP 18; TEMP 36.2; O2SAT 93
[2024-01-30 17:13] LABS: Bedside Glucose 95 mg/dL (74-106)
[2024-01-30] MEDS: Insulin Glargine-YFGN 100 UNIT/ML Pen 30 UNIT SC (20:02)
[2024-01-30] MEDS: MAGNESIUM CHLORIDE 71.5 MG PO (20:03)
[2024-01-30 21:29] LABS: Bedside Glucose 193 mg/dL (74-106)
[2024-01-31] MEDS: Pregabalin 75 MG Capsule 150 MG PO ×3 (05:13→22:08)
[2024-01-31 06:42] LABS: Bedside Glucose 143 mg/dL (74-106)
[2024-01-31] MEDS: Insulin Lispro 100 UNIT/ML INSULN.PEN SC (09:21)
[2024-01-31] MEDS: Citalopram 10 MG Tablet PO (09:23)
[2024-01-31] MEDS: Carvedilol 6.25 MG Tablet PO ×2 (09:23→17:28)
[2024-01-31] MEDS: Aspirin E.C. 81 MG Tablet PO (09:23)
[2024-01-31] MEDS: Senna/Docusate Sodium 1 Tablet 2 TABLET PO ×2 (09:24→22:08)
[2024-01-31] MEDS: CETIRIZINE HCL 10 MG TABLET PO (09:24)
[2024-01-31] MEDS: amLODIPine 5 MG Tablet PO (09:24)
[2024-01-31] MEDS: Pantoprazole Sodium 40 MG Tablet PO ×2 (09:24→22:08)
[2024-01-31] MEDS: oxyCODONE 5 MG Tablet PO ×3 (09:27→22:10)
[2024-01-31 09:44] VITALS: BP 118/47; PULSE 66; RESP 16; TEMP 35.9; O2SAT 95
--- NOTE | 2024-01-31 10:42 | CON.PCM.GI_ITS ---
HPI Consult Data Date of Consult: 01/31/24 HPI Narrative HPI Narrative: AMAYA EDWARDS, is a 78 F who presents [facility] Medical History (Updated 01/31/24 @ 10:[address] 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 Hyperlipidemia Diabetic polyneuropathy Chronic pain Depression Diabetes mellitus Chronic kidney disease, stage 3b Gastroesophageal reflux disease Coronary artery disease Hypertension Hyperkalemia Debility Hypertension Home Medications ?Medication ?Instructions ?Recorded ?Last Taken ?Type isosorbide mononitrate 30 mg 1 tab PO DAILY heart 11/05/21 Unknown History tablet,extended release 24 hr omeprazole 40 mg capsule,delayed 1 cap PO BID reflux 11/05/21 Unknown History release citalopram 10 mg tablet (Celexa) 10 mg PO DAILY depression 11/09/21 01/25/24 08:00 History albuterol sulfate 90 mcg/actuation 2 puff inhalation Q4H PRN 07/01/22 Unknown History aerosol inhaler amlodipine 5 mg tablet 5 mg PO DAILY Heart 07/01/22 01/25/24 08:05 History aspirin 81 mg tablet,delayed 81 mg PO BID Heart 07/01/22 Unknown History release carvedilol 6.25 mg tablet 6.25 mg PO BID BP 07/01/22 01/25/24 08:00 History insulin glargine U-300 conc 300 30 unit subcut QHS Diabetes 07/19/22 Unknown History unit/mL (3 mL) subcutaneous pen (Toujeo Max U-300 SoloStar) biotin 5 mg capsule 5 mg PO DAILY 07/21/22 Unknown History ferrous sulfate 325 mg (65 mg 325 mg PO DAILY 12/22/22 Unknown History iron) tablet (Feosol) magnesium chloride 71.5 mg 71.5 - 143 mg PO QHS PRN 12/22/22 Unknown History (magnesium chloride) Constipation tablet,delayed release (Slow-Mag) buprenorphine 15 mcg/hour weekly 1 patch transdermal QWEEK 08/18/23 Unknown History transdermal patch insulin lispro 100 unit/mL 5 - 10 unit subcut TID Diabetes 08/18/23 01/24/24 16:10 History subcutaneous pen nitroglycerin 0.4 mg sublingual 0.4 mg sublingual Q5M PRN chest 08/18/23 Unknown History tablet pain cetirizine 10 mg capsule (Zyrtec) 10 mg PO DAILY 01/10/24 Unknown History acetaminophen 325 mg capsule 650 mg PO Q6H PRN Pain 01/25/24 01/25/24 08:05 History buprenorphine 20 mcg/hour weekly 1 patch topical QWEEK Pain 01/25/24 01/21/24 15:10 History transdermal patch oxycodone 5 mg capsule 2.5 - 5 mg PO Q6H PRN pain 01/25/24 01/25/24 01:25 History pregabalin 150 mg capsule (Lyrica) 150 mg PO TID Nerve pain 01/25/24 01/25/24 08:05 History sennosides 8.6 mg tablet (Funmilayo-randolph) 8.6 mg PO BID Constipation 01/25/24 01/24/24 21:25 History Allergy/AdvReac Type Severity Reaction Status Date / Time tetanus and diphtheria Allergy Intermediate Syncope Verified 01/10/24 11:53 toxoids codeine Allergy Other Verified 01/10/24 11:53 metformin Allergy Hives Verified 01/10/24 11:53 [id number] Reductase Allergy Other Verified 01/10/24 11:53 Inhibitor Sulfa (Sulfonamide Allergy Other Verified 01/10/24 11:53 Antibiotics) Family History Mother Hypertension Cancer Surgical History (Updated 01/25/24 @ 20:[address] Bryson Hernandez MD) History of total right hip arthroplasty History of tooth extraction History of hysterectomy H/O cervical spine surgery History of appendectomy History of cataract surgery Social History household members: family Smoking Status: Former smoker alcohol intake: never substance use type: does not use caffeine: Yes Type: coffee Number of servings: 1 Lab / Micro Data 01/27/24 07:01 01/27/24 07:01 Labs: Laboratory Results - last 24 hr 01/30/24 10:52: POC Glucose 170 H 01/30/24 16:39: POC Glucose 95 01/30/24 21:10: POC Glucose 193 H 01/31/24 05:44: POC Glucose 143 H Assessment & Plan Assessment/Plan (1) Dysphagia: PLAN: 78-year-old with past medical history of esophageal dysphagia thought to be mostly secondary to oropharyngeal dysphagia from not having top teeth. She underwent cookie swallow test and was determined to have retention of food substances in the esophagus and then she also had episodes of aspiration pneumonia. I was asked to see her due to worsening esophageal dysphagia. She will undergo an upper endoscopy to evaluate upper GI tract. She was explained alternatives, risk and benefits including not withstanding bleeding, infection, sepsis, perforation, need for emergent surgery . She will have an ASA of 3. Charges/Coding Visit Charges Inpatient E&M: 18385 SNF Init L2
[2024-01-31 11:11] VITALS: BMI 34.7
[2024-01-31 11:27] LABS: Bedside Glucose 141 mg/dL (74-106)
[2024-01-31] MEDS: Nystatin Powder 15gm Bottle 1 APPLIC TOPICAL ×2 (13:38→22:09)
--- NOTE | 2024-01-31 13:52 | CASEMGMT ---
Social Work SW conducted BIMS () and PHQ-2 () completed for MDS assessment. Deepika Gonzalez MSW LAW ENFORCEMENT OFFICER
--- NOTE | 2024-01-31 16:04 | NURSING ---
Patient to have EGD tomorrow. NPO after midnight. Call from Angela in PACU to review meds that patient may have tonight and in AM prior to procedure. Tonight patient is to have 1/2 dose of Glargine (15U). Tomorrow patient may have Amlodipine, Coreg, Albuterol, Omeprazole, Lyrica. Aspirin put on hold until after procedure.
[2024-01-31 17:24] LABS: Bedside Glucose 136 mg/dL (74-106)
[2024-01-31 22:00] VITALS: BP 124/47; PULSE 72; O2SAT 97
[2024-01-31 22:05] LABS: Bedside Glucose 194 mg/dL (74-106)
[2024-01-31] MEDS: Isosorbide Mononitrate 30 MG Tablet PO (22:07)
[2024-01-31] MEDS: MAGNESIUM CHLORIDE 71.5 MG PO (22:08)
[2024-01-31 22:10] VITALS: PULSE 72; O2SAT 97
--- NOTE | 2024-02-01 03:09 | NURSING ---
Pt refused HS dose of Insulin Glargine because she is NPO after midnight and stated I do not know when my procedure is going to be tomorrow and I do not want my blood sugar dropping so I am not going to take this dose. HS BS: 194. This nurse informed pt that the order was to take a half dose per surgical instructions but pt continued to decline. Denied further questions or needs at this time.
[2024-02-01] MEDS: Pregabalin 75 MG Capsule 150 MG PO ×3 (05:56→22:45)
[2024-02-01 06:15] VITALS: PULSE 82; O2SAT 95
[2024-02-01 06:28] LABS: Bedside Glucose 121 mg/dL (74-106)
--- NOTE | 2024-02-01 08:54 | NURSING ---
Dietist Note; MDS for 02/01/2024 Complete
[2024-02-01] MEDS: Menthol/Lanolin/Calamine/Znox 113 GM Tube 1 APPLIC TOPICAL ×2 (09:13→22:38)
[2024-02-01] MEDS: Nystatin Powder 15gm Bottle 1 APPLIC TOPICAL ×2 (09:14→22:37)
[2024-02-01] MEDS: Pantoprazole Sodium 40 MG Tablet PO ×2 (09:16→22:36)
[2024-02-01 10:00] VITALS: BP 111/50; PULSE 69; RESP 18; TEMP 36.9; O2SAT 92; BMI 34.7
--- NOTE | 2024-02-01 13:48 | NURSING ---
Called report from PACU, resident coming back from procedure, to take protonix BID x12 weeks (already taking). She is to be on full liquid diet for today, advance tomorrow.
--- NOTE | 2024-02-01 14:11 | NURSING ---
Patient left until at 1045 this morning and returned at 1400 for EGD. Patient given coffee in PACU and tolerated well, N.O. full liquid diet for remainder of today and resume previous diet tomorrow.
[2024-02-01 14:29] VITALS: BP 122/44; PULSE 68; RESP 16; TEMP 36.2; O2SAT 93
[2024-02-01 18:01] LABS: Bedside Glucose 122 mg/dL (74-106)
[2024-02-01 21:47] LABS: Bedside Glucose 204 mg/dL (74-106)
[2024-02-01] MEDS: Senna/Docusate Sodium 1 Tablet 2 TABLET PO (22:35)
[2024-02-01] MEDS: Isosorbide Mononitrate 30 MG Tablet PO (22:38)
[2024-02-01] MEDS: MAGNESIUM CHLORIDE 71.5 MG PO (22:40)
[2024-02-01] MEDS: Insulin Glargine-YFGN 100 UNIT/ML Pen 30 UNIT SC (22:51)
[2024-02-01] MEDS: Acetaminophen 500 MG Tablet 1000 MG PO (22:59)
[2024-02-01] MEDS: oxyCODONE 5 MG Tablet PO (23:00)
[2024-02-02] MEDS: Pregabalin 75 MG Capsule 150 MG PO ×3 (06:18→22:06)
[2024-02-02 06:23] LABS: Bedside Glucose 113 mg/dL (74-106)
[2024-02-02 06:24] LABS: Absolute Lymphocyte Count 3.15 X10^3/uL (0.83-4.51); Absolute Neutrophil Count 4.5 X10^3/uL (2.0-7.7); Basophil# 0.13 X10^3/uL; Basophil% 1.4 % (0-1); Eosinophil# 0.39 X10^3/uL; Eosinophils% 4.3 % (0-5); Hematocrit 34.5 % (37-47); Hemoglobin 10.7 g/dL (12.0-15.0); Lymphocyte # 3.15 X10^3/ul (0.83-4.51); Lymphocyte % 34.4 % (19-41); Mean Corpuscular Hgb 29.6 pg (27.0-32.0); Mean Corpuscular Volume 95.6 fL (81-99); Mean Platelet Vol. 10.6 fl (6.2-12.0); Monocyte% 10.9 % (0-10); NRBC Flagged by Analyzer 0 % (0-5); Neutrophil # 4.45 X10^3/uL (2.7-7.7); Neutrophil % 48.7 % (47-70); Platelet Count 264 K/mm3 (150-450); RBC Distribution Width CV 13.5 % (11.6-14.6); Red Blood Count 3.61 M/mm3 (4.2-5.4); White Blood Count 9.2 K/mm3 (4.4-11.0)
--- NOTE | 2024-02-02 06:34 | NURSING ---
Meplilex to coccyx changed.
[2024-02-02 06:42] LABS: Anion Gap 3 (5-15); BUN 15 mg/dL (7-18); Chloride 104 mmol/L (98-107); Creatinine, Serum 1.15 mg/dL (0.55-1.02); EST Glomerular Filtration Rate 48 mL/min (>60); Est Glom Filt Rate - Afr Amer 58 mL/min (>60); Estimated Creatinine Clearance 45.09 ml/min; Glucose 121 mg/dL (74-106); Potassium 4.4 mmol/L (3.5-5.1); Sodium Level 139 mmol/L (136-145)
[2024-02-02 07:49] VITALS: BP 120/53; PULSE 64; RESP 15; TEMP 36.7; O2SAT 91
[2024-02-02] MEDS: Aspirin E.C. 81 MG Tablet PO ×2 (07:58→17:39)
[2024-02-02] MEDS: Pantoprazole Sodium 40 MG Tablet PO ×2 (07:58→22:03)
[2024-02-02] MEDS: Carvedilol 6.25 MG Tablet PO (07:58)
[2024-02-02] MEDS: CETIRIZINE HCL 10 MG TABLET PO (07:58)
[2024-02-02] MEDS: Senna/Docusate Sodium 1 Tablet 2 TABLET PO ×2 (07:58→22:03)
[2024-02-02] MEDS: Citalopram 10 MG Tablet PO (07:58)
[2024-02-02] MEDS: amLODIPine 5 MG Tablet PO (07:58)
[2024-02-02] MEDS: Menthol/Lanolin/Calamine/Znox 113 GM Tube 1 APPLIC TOPICAL ×2 (08:01→22:00)
[2024-02-02] MEDS: Nystatin Powder 15gm Bottle 1 APPLIC TOPICAL ×2 (08:02→22:01)
[2024-02-02] MEDS: Tuberculin,Purif.prot.deriv. 50 TU/ML Vial 0.1 ML ID (10:00)
[2024-02-02 11:31] LABS: Bedside Glucose 190 mg/dL (74-106)
[2024-02-02] MEDS: Insulin Lispro 100 UNIT/ML INSULN.PEN SC (12:04)
[2024-02-02 17:08] LABS: Bedside Glucose 115 mg/dL (74-106)
[2024-02-02 17:43] VITALS: BP 111/43
[2024-02-02 20:00] VITALS: PULSE 84; RESP 16; O2SAT 92
[2024-02-02 21:52] LABS: Bedside Glucose 225 mg/dL (74-106)
[2024-02-02 21:58] VITALS: BP 110/48; PULSE 79
[2024-02-02] MEDS: Isosorbide Mononitrate 30 MG Tablet PO (22:02)
[2024-02-02] MEDS: MAGNESIUM CHLORIDE 71.5 MG PO (22:04)
[2024-02-02] MEDS: Insulin Glargine-YFGN 100 UNIT/ML Pen 30 UNIT SC (22:09)
[2024-02-02] MEDS: Acetaminophen 500 MG Tablet 1000 MG PO (23:04)
[2024-02-02] MEDS: oxyCODONE 5 MG Tablet PO (23:06)
[2024-02-03] MEDS: Pregabalin 75 MG Capsule 150 MG PO ×3 (06:09→22:24)
[2024-02-03 06:36] LABS: Bedside Glucose 143 mg/dL (74-106)
[2024-02-03 07:53] VITALS: BP 130/59; PULSE 71; RESP 18; TEMP 36.5; O2SAT 90
[2024-02-03] MEDS: Carvedilol 6.25 MG Tablet PO ×2 (07:58→17:35)
[2024-02-03] MEDS: Citalopram 10 MG Tablet PO (07:58)
[2024-02-03] MEDS: Aspirin E.C. 81 MG Tablet PO ×2 (07:58→17:34)
[2024-02-03] MEDS: amLODIPine 5 MG Tablet PO (07:58)
[2024-02-03] MEDS: CETIRIZINE HCL 10 MG TABLET PO (07:59)
[2024-02-03] MEDS: Pantoprazole Sodium 40 MG Tablet PO ×2 (07:59→22:25)
[2024-02-03] MEDS: Senna/Docusate Sodium 1 Tablet 2 TABLET PO ×2 (07:59→22:26)
[2024-02-03] MEDS: Nystatin Powder 15gm Bottle 1 APPLIC TOPICAL ×2 (08:00→20:04)
[2024-02-03] MEDS: Menthol/Lanolin/Calamine/Znox 113 GM Tube 1 APPLIC TOPICAL ×2 (08:01→20:04)
--- NOTE | 2024-02-03 08:02 | NURSING ---
x2 butrans patches intact to Left chest.
[2024-02-03 11:21] LABS: Bedside Glucose 207 mg/dL (74-106)
[2024-02-03] MEDS: Insulin Lispro 100 UNIT/ML INSULN.PEN SC (11:39)
--- NOTE | 2024-02-03 14:39 | CASEMGMT ---
Addendum entered by Deepika Gonzalez 02/07/24 10:50: SW phoned [facility] again and confirmed they can accept pt. Addendum entered by Deepika Gonzalez 02/06/24 14:56: SW left VM with [facility] to follow up on referral as no acknowledgement has been made since referral. Original Note: Social Work IDT met with patient and dtr for care plan meeting. Discussed patient's progress in PT/OT/ST/SN. Educated to [facility] insurance with [employer] 02/05, EDC 02/08. pt is SBA to set up assist for all tasks. SW offered to set DC date for 02/08 or prior. Pt confirmed 02/08. SW offfered HHC vs OP therapy. Pt denied OP therapy but agreeable to [facility]HC. Pt used [facility] prior and requesting to use again. SW agreed to place referral. No DME needs. Dtr to transport. SW sent referral to [facility] via [facility]. Plan: DC home with dtr 02/08, [facility] PT/OT MAYRA ArthurW
--- NOTE | 2024-02-03 15:18 | DS.PCM_ITS ---
Providers Date of Admission: 01/25/24 Primary Care Physician: Dr. Bryson Hernandez MD Consultations 01/30/24 17:20 Consult: Gastroenterology Routine Consulting Provider: [facility] Reason for Consult: Esophageal retention (MBS). EMERGENT Consult: No MD Notified: Yes Date Notified: 01/30/24 Time Notified: 17:20 Method of Notification: Text Reason For Visit: RIGHT TOTAL HIP REPLACEMENT Diagnosis Discharge Diagnosis (1) Dysphagia: Status: Acute Code(s): R13.10 - Dysphagia, unspecified Plan 78 year old female with below past medical history underwent right total hip arthroplasty after previous hip surgery, removal of hardware 01/19/[address] Stratton, postoperative course uncomplicated, admitted to TCU with debility, here for rehabilitation, strengthening, prior to discharge home with daughter. * Debility - PT/OT. * Pain - Tylenol 1000mg q6 prn pain (1-3), Oxycodone 5mg q4 prn pain (4-10), Butrans 10mcg 2 patches td qweek. * Bowel - senna/colace 2 tablets bid, Magnesium citrate 300ml daily prn. * Adult immunization - Administer pneumonia vaccine, covid vaccine, flu vaccine as appropriate. * DVT prophylaxis - Aspirin 81mg bid thru 02/15/2024, then Aspirin 81mg daily thru 03/09/2024. * Hypertension - Coreg 6.25mg bid, Amlodipine 5mg daily. * Coronary artery disease - Coreg 6.25mg bid, Imdur 30mg daily, Aspirin 81mg daily, NTG 0.4mg sl q5m prn. * Allergic rhinitis - Zyrtec 10mg daily. * Depression - Citalopram 10mg daily, stable chronic shelter use, GDR not recommended. * Diabetes Mellitus II - Glargine 30 units qhs, Lispro 5-10 units tdac. * Leg cramps - Slow-Mg 71.5mg qhs. * Skin irritation - Calmoseptine topical bid. * Tinea Corporis - Nystatin powder topical bid. * GERD - Pantoprazole 40mg bid. * Diabetic polyneuropathy - Lyrica 150mg tid. Medications at Discharge Home Medications isosorbide mononitrate 30 mg tablet,extended release 24 hr 1 tab PO DAILY heart 11/05/21 omeprazole 40 mg capsule,delayed release 1 cap PO BID reflux 11/05/21 citalopram 10 mg tablet (Celexa) 10 mg PO DAILY depression 11/09/21 amlodipine 5 mg tablet 5 mg PO DAILY Heart 07/01/22 carvedilol 6.25 mg tablet 6.25 mg PO BID BP 07/01/22 insulin glargine U-300 conc 300 unit/mL (3 mL) subcutaneous pen (Toujeo Max U- 300 SoloStar) 30 unit subcut QHS Diabetes 07/19/22 magnesium chloride 71.5 mg (magnesium chloride) tablet,delayed release (Slow- Mag) 71.5 - 143 mg PO QHS PRN Constipation 12/22/22 insulin lispro 100 unit/mL subcutaneous pen 5 - 10 unit subcut TID Diabetes 08/18/23 nitroglycerin 0.4 mg sublingual tablet 0.4 mg sublingual Q5M PRN chest pain 08/18/23 cetirizine 10 mg capsule (Zyrtec) 10 mg PO DAILY 01/10/24 buprenorphine 20 mcg/hour weekly transdermal patch 1 patch topical QWEEK Pain 01/25/24 pregabalin 150 mg capsule (Lyrica) 150 mg PO TID Nerve pain 01/25/24 acetaminophen 500 mg tablet 1,000 mg (2 x 500 mg) PO Q6H PRN Pain Score 1-3 #0 tabs 02/03/24 aspirin 81 mg tablet,delayed release 81 mg PO BIDCM 6 days #0 tabs 02/03/24 aspirin 81 mg tablet,delayed release 81 mg PO BREAKFAST #0 tabs 02/03/24 nystatin 100,000 unit/gram topical powder (Nyamyc) 1 applic topical BID 30 days #60 grams 02/03/24 oxycodone 5 mg tablet 5 mg PO Q4H PRN PRN Pain Score 4-10 Or Pre Pt/Ot 7 days #42 tabs 02/03/24 sennosides 8.6 mg-docusate sodium 50 mg tablet (Stimulant Laxative Plus) 2 tab PO BID 30 days #120 tabs 02/03/24 Hospital Course Operations total hip replacement (Right.) Procedures None Summary of Care Provided Minutes Spent on Discharge: 35 Hospital Course: 78 year old female with below past medical history underwent right total hip arthroplasty after previous hip surgery, removal of hardware 01/19/[address] Stratton, postoperative course uncomplicated, admitted to TCU with debility, here for rehabilitation, strengthening, prior to discharge home with daughter. 02/01/2024 Friend EGD. Impressions : - Abnormal esophageal motility, consistent with achalasia. Biopsied. Dilated. - Medium-sized hiatal hernia. - No gross lesions in the first portion of the duodenum. Discharge home with daughter 02/09/2024, [facility] PT/OT. Physical Exam Const alert General Appearance: cooperative HEENT normocephalic Eyes PERRL and EOMs intact bilaterally Neck supple, no JVD and no carotid bruits Resp normal respiratory effort, normal air movement and clear to auscultation bilaterally Cardio regular rate and regular rhythm GI normal to inspection, nondistended, normoactive bowel sounds, non-tender and non-distended Extremity normal capillary refill General Extremity: Negative for edema Skin no rashes or lesions noted General Skin Exam: no breakdown Psych affect normal Appearance: appropriate Weight / BMI Weight Weight: 94.529 kg Body Mass Index (BMI) 34.7 ABG / Lab / Microbiology Data 02/02/24 05:12 02/02/24 05:12 Laboratory: Laboratory Results - last 24 hr 02/02/24 16:47: POC Glucose 115 H 02/02/24 21:33: POC Glucose 225 H 02/03/24 06:05: POC Glucose 143 H 02/03/24 11:02: POC Glucose 207 H D/C Instructions Discharge Diet: No restrictions Discharge Activity: Return to Normal Activity, May Shower and Use Walker Weight Bearing Status: Weight bearing as tolerated Call your doctor if you observe: Fever of 101 or Higher, Inability to urinate, Inability to have a bowel movement, Shortness of breath, Dizziness, Fainting spells, Swelling in the ankles, Chest pain and Uncontrolled pain Additional Instructions: Discharge home with daughter 02/09/2024, [facility] PT/OT. Please Follow Up With: Benja Stratton When: As scheduled. Meaningful Use Info Meaningful Use Meaningful Use Diagnoses (Choose all that apply): None applicable Ischemic Stroke Statin Dosing Therapy Reference: STATIN DOSE THERAPY REFERENCE: * Patients > 75 years receive moderate or high dose statin therapy. * Patients 75 years or YOUNGER should receive HIGH intensity statin dose unless contraindicated. You will be required to document reason for non-treatment if statin daily dose does not meet guidelines. HIGH DOSE STATIN THERAPY DAILY Atorvastatin > than or = to 40 mg Rosuvastatin > than or = to 20 mg Amlodipine + Atorvastatin > than or = to 2.5/40 mg Ezetimibe + Simvastatin 10/80 mg Simvastatin 80mg Discharge Plan Admission Admit Date/Time: 01/25/24 12:10 Primary Reason for Your Visit: Debility. Attending Provider: Bryson Hernandez Chi Primary Care Provider: Bryson Hernandez Chi Instructions Additional Instructions / Restrictions: Discharge home with daughter 02/09/2024, [facility] PT/OT. Discharge Orders/Prescriptions Prescriptions: New acetaminophen 500 mg Tablet 1,000 mg PO Q6H PRN (Reason: Pain Score 1-3) Qty: 0 0RF aspirin 81 mg Tablet,Delayed Release (Dr/Ec) 81 mg PO BIDCM 6 Days Qty: 0 0RF aspirin 81 mg Tablet,Delayed Release (Dr/Ec) 81 mg PO BREAKFAST Qty: 0 0RF sennosides-docusate sodium [Stimulant Laxative Plus] 8.6-50 mg Tablet 2 tab PO BID 30 Days Qty: 120 0RF nystatin [Nyamyc] 100,000 unit/gram Powder 1 applic topical BID 30 Days Qty: 60 3RF Protocol: *Topical Application Instructions APPLICATION INSTRUCTIONS: abdominal folds, under breasts, groin oxycodone 5 mg Tablet 5 mg PO Q4H PRN PRN (Reason: Pain Score 4-10 Or Pre Pt/Ot) 7 Days Qty: 42 0RF Continued Zyrtec 10 mg capsule 10 mg PO DAILY carvedilol 6.25 mg tablet 6.25 mg PO BID amlodipine 5 mg tablet 5 mg PO DAILY insulin glargine U-300 conc [Toujeo Max U-300 SoloStar] 300 unit/mL (3 mL) insulin pen 30 unit subcut QHS nitroglycerin 0.4 mg tablet, sublingual 0.4 mg sublingual Q5M PRN (Reason: chest pain) Rx Instructions: do not exceed 3 doses per episode Slow-Mag 71.5 mg tablet,delayed release (DR/EC) 71.5 - 143 mg PO QHS PRN (Reason: Constipation) insulin lispro 100 unit/mL insulin pen 5 - 10 unit subcut TID Rx Instructions: Before meals. isosorbide mononitrate 30 mg tablet extended release 24 hr 1 tab PO DAILY Patient Comments: TAKE 1 TABLET BY MOUTH ONCE DAILY FOR 30 DAYS omeprazole 40 mg capsule,delayed release(DR/EC) 1 cap PO BID Patient Comments: TAKE 1 CAPSULE BY MOUTH TWICE DAILY citalopram [Celexa] 10 mg Tablet 10 mg PO DAILY buprenorphine 20 mcg/hour patch weekly 1 patch topical QWEEK pregabalin [Lyrica] 150 mg capsule 150 mg PO TID Discontinued biotin 5 mg capsule 5 mg PO DAILY albuterol sulfate 90 mcg/actuation HFA aerosol inhaler 2 puff inhalation Q4H PRN aspirin 81 mg tablet,delayed release (DR/EC) 81 mg PO BID buprenorphine 15 mcg/hour patch weekly 1 patch transdermal QWEEK ferrous sulfate [Feosol] 325 mg (65 mg iron) tablet 325 mg PO DAILY acetaminophen 325 mg capsule 650 mg PO Q6H PRN (Reason: Pain) oxycodone 5 mg capsule 2.5 - 5 mg PO Q6H PRN (Reason: pain) sennosides [Funmilayo-randolph] 8.6 mg tablet 8.6 mg PO BID Referrals / Follow Up: Bryson Hernandez Chi, MD [Primary Care Provider] - Within 1 Week Disposition Disposition (needs filled in before D/C Order can be placed): Home Health Service
[2024-02-03 15:24] VITALS: PULSE 64; RESP 18; O2SAT 94
--- NOTE | 2024-02-03 15:50 | CHAPLAIN ---
Type of Pastoral Visit _x__ Initial Visit ___ Follow-up Visit ___ On-call Visit ___ General Patient Visit ___ Spiritual Assessment ___ Family Conference ___ Bereavement ___ Rapid Response ___ Code Blue ___ Other (describe below) Pastoral Care Referral From _x__ Patient ___ Family ___ Nurse ___ Physician ___ Freight Solicitor ___ Retail Branch Manager ___ Other (describe below) Sacrament/Intervention _x__ Active listening ___ Anointing ___ Religion ___ Bereavement ___ Communion ___ Freda exploration ___ _x__ Life review ___ Prayer ___ Reconciliation ___ Sacrament of Sick _x__ Supportive presence ___ Wedding ___ Other (describe below) Pastoral Comments the patient was very open to talking about her situation and in particular of her family and her living arrangement with them; the patient has limited family and came to live with them after her ; the patient has very limited support from others in [place]; the patient was very verbal and at the end of the conversation she stated thank you for letting me vent;
[2024-02-03 17:09] LABS: Bedside Glucose 149 mg/dL (74-106)
[2024-02-03 17:36] VITALS: BP 121/50
[2024-02-03] MEDS: MAGNESIUM CHLORIDE 71.5 MG PO (22:23)
[2024-02-03] MEDS: Acetaminophen 500 MG Tablet 1000 MG PO (22:24)
[2024-02-03] MEDS: Isosorbide Mononitrate 30 MG Tablet PO (22:25)
[2024-02-03] MEDS: oxyCODONE 5 MG Tablet PO (22:25)
[2024-02-03] MEDS: Insulin Glargine-YFGN 100 UNIT/ML Pen 30 UNIT SC (22:51)
[2024-02-03 23:12] LABS: Bedside Glucose 188 mg/dL (74-106)
[2024-02-04 06:44] LABS: Bedside Glucose 130 mg/dL (74-106)
[2024-02-04] MEDS: Pregabalin 75 MG Capsule 150 MG PO ×3 (07:01→21:13)
[2024-02-04] MEDS: Insulin Lispro 100 UNIT/ML INSULN.PEN SC ×2 (08:26→12:55)
[2024-02-04] MEDS: Aspirin E.C. 81 MG Tablet PO ×2 (08:29→17:34)
[2024-02-04] MEDS: Citalopram 10 MG Tablet PO (08:29)
[2024-02-04] MEDS: amLODIPine 5 MG Tablet PO (08:29)
[2024-02-04] MEDS: Carvedilol 6.25 MG Tablet PO ×2 (08:29→17:34)
[2024-02-04] MEDS: CETIRIZINE HCL 10 MG TABLET PO (08:30)
[2024-02-04] MEDS: Menthol/Lanolin/Calamine/Znox 113 GM Tube 1 APPLIC TOPICAL ×2 (08:30→21:15)
[2024-02-04] MEDS: Nystatin Powder 15gm Bottle 1 APPLIC TOPICAL ×2 (08:30→21:14)
[2024-02-04] MEDS: Pantoprazole Sodium 40 MG Tablet PO ×2 (08:30→21:11)
[2024-02-04] MEDS: Senna/Docusate Sodium 1 Tablet 2 TABLET PO ×2 (08:30→21:12)
[2024-02-04 11:30] LABS: Bedside Glucose 204 mg/dL (74-106)
[2024-02-04 11:31] VITALS: BP 115/51; PULSE 72; RESP 16; TEMP 36.2; O2SAT 99
[2024-02-04] MEDS: Buprenorphine 10 MCG PATCH.TDWK 2 PATCH TD (13:56)
--- NOTE | 2024-02-04 14:08 | NURSING ---
Butrans patches wasted with RN. New patch applied to R side of chest.
[2024-02-04 16:43] LABS: Bedside Glucose 139 mg/dL (74-106)
[2024-02-04] MEDS: Acetaminophen 500 MG Tablet 1000 MG PO (21:12)
[2024-02-04] MEDS: Isosorbide Mononitrate 30 MG Tablet PO (21:12)
[2024-02-04] MEDS: Insulin Glargine-YFGN 100 UNIT/ML Pen 30 UNIT SC (21:13)
[2024-02-04] MEDS: oxyCODONE 5 MG Tablet PO (21:13)
[2024-02-04] MEDS: MAGNESIUM CHLORIDE 71.5 MG PO (21:13)
[2024-02-04 21:42] LABS: Bedside Glucose 168 mg/dL (74-106)
[2024-02-05] MEDS: Pregabalin 75 MG Capsule 150 MG PO ×3 (05:49→21:55)
[2024-02-05 06:40] LABS: Bedside Glucose 105 mg/dL (74-106)
[2024-02-05] MEDS: Carvedilol 6.25 MG Tablet PO ×2 (09:45→17:36)
[2024-02-05] MEDS: Aspirin E.C. 81 MG Tablet PO ×2 (09:45→17:36)
[2024-02-05] MEDS: amLODIPine 5 MG Tablet PO (09:46)
[2024-02-05] MEDS: Citalopram 10 MG Tablet PO (09:46)
[2024-02-05] MEDS: Pantoprazole Sodium 40 MG Tablet PO ×2 (09:47→21:55)
[2024-02-05] MEDS: Senna/Docusate Sodium 1 Tablet 2 TABLET PO ×2 (09:48→21:55)
[2024-02-05] MEDS: Nystatin Powder 15gm Bottle 1 APPLIC TOPICAL ×2 (09:49→21:56)
[2024-02-05] MEDS: Menthol/Lanolin/Calamine/Znox 113 GM Tube 1 APPLIC TOPICAL (09:51)
[2024-02-05 11:39] LABS: Bedside Glucose 183 mg/dL (74-106)
[2024-02-05] MEDS: Insulin Lispro 100 UNIT/ML INSULN.PEN SC ×2 (11:47→17:36)
[2024-02-05] MEDS: CETIRIZINE HCL 10 MG TABLET PO (11:47)
[2024-02-05 13:56] VITALS: BP 132/57; PULSE 69; RESP 16; TEMP 36.6; O2SAT 92
[2024-02-05 17:27] LABS: Bedside Glucose 172 mg/dL (74-106)
[2024-02-05 21:46] LABS: Bedside Glucose 165 mg/dL (74-106)
[2024-02-05 21:50] VITALS: BP 107/51; PULSE 66
[2024-02-05 21:53] VITALS: PULSE 77; RESP 16
[2024-02-05] MEDS: Isosorbide Mononitrate 30 MG Tablet PO (21:55)
[2024-02-05] MEDS: MAGNESIUM CHLORIDE 71.5 MG PO (21:56)
[2024-02-05] MEDS: Insulin Glargine-YFGN 100 UNIT/ML Pen 30 UNIT SC (21:56)
[2024-02-06] MEDS: Pregabalin 75 MG Capsule 150 MG PO ×3 (05:26→23:15)
[2024-02-06 07:22] LABS: Bedside Glucose 126 mg/dL (74-106)
[2024-02-06 08:12] VITALS: BP 116/49; PULSE 70; RESP 16; TEMP 36.2; O2SAT 93
[2024-02-06] MEDS: Carvedilol 6.25 MG Tablet PO ×2 (08:14→16:49)
[2024-02-06] MEDS: Aspirin E.C. 81 MG Tablet PO ×2 (08:15→16:49)
[2024-02-06] MEDS: Nystatin Powder 15gm Bottle 1 APPLIC TOPICAL ×2 (08:15→23:00)
[2024-02-06] MEDS: amLODIPine 5 MG Tablet PO (08:15)
[2024-02-06] MEDS: Senna/Docusate Sodium 1 Tablet 2 TABLET PO ×2 (08:15→22:59)
[2024-02-06] MEDS: Citalopram 10 MG Tablet PO (08:15)
[2024-02-06] MEDS: Pantoprazole Sodium 40 MG Tablet PO ×2 (08:15→22:59)
[2024-02-06] MEDS: CETIRIZINE HCL 10 MG TABLET PO (08:15)
[2024-02-06] MEDS: Menthol/Lanolin/Calamine/Znox 113 GM Tube 1 APPLIC TOPICAL ×2 (08:17→23:00)
[2024-02-06 12:26] LABS: Bedside Glucose 134 mg/dL (74-106)
[2024-02-06 16:50] VITALS: BP 112/51; PULSE 64
[2024-02-06 16:51] LABS: Bedside Glucose 174 mg/dL (74-106)
[2024-02-06 21:47] LABS: Bedside Glucose 210 mg/dL (74-106)
[2024-02-06] MEDS: MAGNESIUM CHLORIDE 71.5 MG PO (22:59)
[2024-02-06] MEDS: Isosorbide Mononitrate 30 MG Tablet PO (23:00)
[2024-02-06] MEDS: Insulin Glargine-YFGN 100 UNIT/ML Pen 30 UNIT SC (23:03)
[2024-02-07] MEDS: oxyCODONE 5 MG Tablet PO ×2 (00:22→22:56)
[2024-02-07] MEDS: Acetaminophen 500 MG Tablet 1000 MG PO ×2 (00:22→22:56)
[2024-02-07] MEDS: Pregabalin 75 MG Capsule 150 MG PO ×3 (06:01→22:43)
[2024-02-07 07:13] LABS: Bedside Glucose 173 mg/dL (74-106)
[2024-02-07 09:17] VITALS: BMI 36.8
--- NOTE | 2024-02-07 09:47 | MDS.RN ---
Information for the MDS was obtained from review of the clinical record, interview of resident, staff, and direct observation of resident?s care.
[2024-02-07] MEDS: Insulin Lispro 100 UNIT/ML INSULN.PEN SC ×2 (10:28→13:35)
[2024-02-07] MEDS: Aspirin E.C. 81 MG Tablet PO ×2 (10:29→18:35)
[2024-02-07] MEDS: Carvedilol 6.25 MG Tablet PO ×2 (10:29→18:34)
[2024-02-07] MEDS: amLODIPine 5 MG Tablet PO (10:29)
[2024-02-07] MEDS: Citalopram 10 MG Tablet PO (10:29)
[2024-02-07] MEDS: CETIRIZINE HCL 10 MG TABLET PO (10:30)
[2024-02-07] MEDS: Senna/Docusate Sodium 1 Tablet 2 TABLET PO ×2 (10:30→22:43)
[2024-02-07] MEDS: Pantoprazole Sodium 40 MG Tablet PO ×2 (10:30→22:43)
[2024-02-07] MEDS: Menthol/Lanolin/Calamine/Znox 113 GM Tube 1 APPLIC TOPICAL ×2 (10:37→22:48)
[2024-02-07] MEDS: Nystatin Powder 15gm Bottle 1 APPLIC TOPICAL ×2 (10:37→22:48)
[2024-02-07 11:30] LABS: Bedside Glucose 136 mg/dL (74-106)
[2024-02-07 13:10] VITALS: BP 119/51; PULSE 67; RESP 18; TEMP 36.3; O2SAT 90
[2024-02-07 16:26] LABS: Bedside Glucose 110 mg/dL (74-106)
[2024-02-07] MEDS: COVID VAC 24-25 (12UP)(MODERNA)/PF 50 MCG/0.5 ML SYRINGE IM (18:36)
[2024-02-07 21:51] LABS: Bedside Glucose 206 mg/dL (74-106)
[2024-02-07] MEDS: MAGNESIUM CHLORIDE 71.5 MG PO (22:43)
[2024-02-07] MEDS: Insulin Glargine-YFGN 100 UNIT/ML Pen 30 UNIT SC (22:44)
[2024-02-07 22:45] VITALS: BP 135/63; PULSE 71; RESP 16; O2SAT 93
[2024-02-07] MEDS: Isosorbide Mononitrate 30 MG Tablet PO (22:47)
[2024-02-07] MEDS: Magnesium Citrate 300 ML PO (23:01)
[2024-02-07 23:40] VITALS: PULSE 71; RESP 16; O2SAT 93
[2024-02-08] MEDS: Pregabalin 75 MG Capsule 150 MG PO ×3 (06:01→21:48)
[2024-02-08 06:05] VITALS: RESP 16
[2024-02-08 06:39] LABS: Bedside Glucose 133 mg/dL (74-106)
[2024-02-08] MEDS: Insulin Lispro 100 UNIT/ML INSULN.PEN SC ×2 (08:17→13:12)
[2024-02-08] MEDS: Carvedilol 6.25 MG Tablet PO ×2 (08:18→17:17)
[2024-02-08] MEDS: Pantoprazole Sodium 40 MG Tablet PO ×2 (08:18→21:48)
[2024-02-08] MEDS: CETIRIZINE HCL 10 MG TABLET PO (08:19)
[2024-02-08] MEDS: Citalopram 10 MG Tablet PO (08:19)
[2024-02-08] MEDS: Senna/Docusate Sodium 1 Tablet 2 TABLET PO ×2 (08:20→21:48)
[2024-02-08 08:22] VITALS: BP 100/56; PULSE 70
[2024-02-08] MEDS: Aspirin E.C. 81 MG Tablet PO ×2 (09:48→17:17)
[2024-02-08 10:49] VITALS: PULSE 65; RESP 16; TEMP 36.2; O2SAT 91
[2024-02-08] MEDS: Nystatin Powder 15gm Bottle 1 APPLIC TOPICAL ×2 (10:57→21:56)
[2024-02-08] MEDS: Menthol/Lanolin/Calamine/Znox 113 GM Tube 1 APPLIC TOPICAL (11:00)
[2024-02-08 11:14] LABS: Bedside Glucose 185 mg/dL (74-106)
[2024-02-08 16:29] LABS: Bedside Glucose 147 mg/dL (74-106)
[2024-02-08 21:38] LABS: Bedside Glucose 204 mg/dL (74-106)
[2024-02-08] MEDS: Isosorbide Mononitrate 30 MG Tablet PO (21:48)
[2024-02-08] MEDS: Insulin Glargine-YFGN 100 UNIT/ML Pen 30 UNIT SC (21:55)
[2024-02-08] MEDS: MAGNESIUM CHLORIDE 71.5 MG PO (22:06)
--- NOTE | 2024-02-09 01:21 | NURSING ---
Patient reports feeling lethargic and out of sorts tonight and states she believes it started after receiving the Covid booster. Also C/O some nausea but has had no emesis. Self transferred this evening and provided with call light and educated on ringing for help for transfers.
[2024-02-09] MEDS: Pregabalin 75 MG Capsule 150 MG PO (05:56)
[2024-02-09 06:24] LABS: Bedside Glucose 169 mg/dL (74-106)
[2024-02-09] MEDS: Insulin Lispro 100 UNIT/ML INSULN.PEN SC (08:24)
[2024-02-09] MEDS: Citalopram 10 MG Tablet PO (08:27)
[2024-02-09] MEDS: Pantoprazole Sodium 40 MG Tablet PO (08:27)
[2024-02-09] MEDS: Menthol/Lanolin/Calamine/Znox 113 GM Tube 1 APPLIC TOPICAL (08:27)
[2024-02-09] MEDS: Senna/Docusate Sodium 1 Tablet 2 TABLET PO (08:27)
[2024-02-09] MEDS: Nystatin Powder 15gm Bottle 1 APPLIC TOPICAL (08:27)
[2024-02-09] MEDS: amLODIPine 5 MG Tablet PO (08:27)
[2024-02-09] MEDS: Aspirin E.C. 81 MG Tablet PO (08:27)
[2024-02-09] MEDS: Carvedilol 6.25 MG Tablet PO (08:27)
[2024-02-09] MEDS: CETIRIZINE HCL 10 MG TABLET PO (08:28)
--- NOTE | 2024-02-09 09:40 | CASEMGMT ---
Social Work SW conducted BIMS () and PHQ-2 () completed for MDS assessment. Deepika Gonzalez MSW RN WELLNESS
--- NOTE | 2024-02-09 11:19 | NURSING ---
pt's daughter Marry called stating pt is stating she cannot do anything for herself and that staff told her she would need a step stool to get into her daughter's vehicle. This nurse spoke with therapy and they stated that no one had told the pt she would need a step stool. JENNIFER Mohan went to speak with the pt to reassure her, that she will be able to continue completing her ADLs at home in the same way she has been able to complete them in TCU. Staff will continue to give pt encouragement and reassurance to assist her in a successful transition home.
[2024-02-09 11:52] LABS: Bedside Glucose 155 mg/dL (74-106)
== END 2024-02-09 12:50 | disposition home health service (06) | DRG 561 ==
PROVIDERS: Admitting Provider Family Medicine Geriatric Medicine; PCP Family Medicine Geriatric Medicine; Referring Provider Family Medicine Geriatric Medicine; Visit Provider Family Medicine Geriatric Medicine
DX: Z47.1 Aftercare following joint replacement surgery (principal); K22.0 Achalasia of cardia; E11.22 Type 2 diabetes mellitus with diabetic chronic kidney disease; E11.42 Type 2 diabetes mellitus with diabetic polyneuropathy; E78.5 Hyperlipidemia, unspecified; B35.4 Tinea corporis; N18.32 Chronic kidney disease, stage 3b; F32.A Depression, unspecified; I12.9 Hypertensive chronic kidney disease with stage 1 through stage 4 chronic kidney disease, or unspecified chronic kidney disease; M16.11 Unilateral primary osteoarthritis, right hip; Z79.4 Long term (current) use of insulin; J30.9 Allergic rhinitis, unspecified; I25.10 Atherosclerotic heart disease of native coronary artery without angina pectoris; K21.9 Gastro-esophageal reflux disease without esophagitis; K44.9 Diaphragmatic hernia without obstruction or gangrene; Z96.641 Presence of right artificial hip joint; Z87.891 Personal history of nicotine dependence; G89.29 Other chronic pain; Z79.899 Other long term (current) drug therapy; Z79.82 Long term (current) use of aspirin; Z79.891 Long term (current) use of opiate analgesic; R13.12 Dysphagia, oropharyngeal phase; Z23 Encounter for immunization
CPT/HCPCS: 36415; 74230; 80048; 82962; 85025; 90480; 91322; 92526; 92610; 92611; 97110; 97116; 97162; 97166; 97530; 97535; 97802

== ENCOUNTER 2024-02-01 10:59 | Day surgery (SDC) | payer MEDICARE, SELFPAY ==
[2024-02-01] VITALS (8 sets, daily range): BP systolic 106–125; BP diastolic 4–88; PULSE 67–81; RESP 14–16; TEMP 36.1–36.6; O2SAT 83–96; BMI 37.3
[2024-02-01] MEDS: Lactated Ringers 1,000 ML 15 ML IV (11:40)
--- NOTE | 2024-02-01 11:57 | PCM.HP.BLA ---
History and Physical Date of Admission: 02/01/24 HPI Narrative HPI Narrative: AMAYA EDWARDS, is a 78 F who presents underwent right total hip arthroplasty after previous hip surgery, removal of hardware 01/19/[address] Stratton, postoperative course uncomplicated. She was admitted to TCU for strengthening. She has a history of hypertension, hyperlipidemia, and left bundle branch block. I was consulted because she was having some worsening esophageal dysphagia with solids. This has been going on for multiple years. It is getting progressively worse to the point where she has to vomit up food sometimes. [facility] Medical History (Updated 01/31/24 @ 10:[address] 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 Hyperlipidemia Diabetic polyneuropathy Chronic pain Depression Diabetes mellitus Chronic kidney disease, stage 3b Gastroesophageal reflux disease Coronary artery disease Hypertension Hyperkalemia Debility Hypertension Home Medications ?Medication ?Instructions ?Recorded ?Last Taken ?Type isosorbide mononitrate 30 mg 1 tab PO DAILY heart 11/05/21 Unknown History tablet,extended release 24 hr omeprazole 40 mg capsule,delayed 1 cap PO BID reflux 11/05/21 Unknown History release citalopram 10 mg tablet (Celexa) 10 mg PO DAILY depression 11/09/21 01/25/24 08:00 History albuterol sulfate 90 mcg/actuation 2 puff inhalation Q4H PRN 07/01/22 Unknown History aerosol inhaler amlodipine 5 mg tablet 5 mg PO DAILY Heart 07/01/22 01/25/24 08:05 History aspirin 81 mg tablet,delayed 81 mg PO BID Heart 07/01/22 Unknown History release carvedilol 6.25 mg tablet 6.25 mg PO BID BP 07/01/22 01/25/24 08:00 History insulin glargine U-300 conc 300 30 unit subcut QHS Diabetes 07/19/22 Unknown History unit/mL (3 mL) subcutaneous pen (Toujeo Max U-300 SoloStar) biotin 5 mg capsule 5 mg PO DAILY 07/21/22 Unknown History ferrous sulfate 325 mg (65 mg 325 mg PO DAILY 12/22/22 Unknown History iron) tablet (Feosol) magnesium chloride 71.5 mg 71.5 - 143 mg PO QHS PRN 12/22/22 Unknown History (magnesium chloride) Constipation tablet,delayed release (Slow-Mag) buprenorphine 15 mcg/hour weekly 1 patch transdermal QWEEK 08/18/23 Unknown History transdermal patch insulin lispro 100 unit/mL 5 - 10 unit subcut TID Diabetes 08/18/23 01/24/24 16:10 History subcutaneous pen nitroglycerin 0.4 mg sublingual 0.4 mg sublingual Q5M PRN chest 08/18/23 Unknown History tablet pain cetirizine 10 mg capsule (Zyrtec) 10 mg PO DAILY 01/10/24 Unknown History acetaminophen 325 mg capsule 650 mg PO Q6H PRN Pain 01/25/24 01/25/24 08:05 History buprenorphine 20 mcg/hour weekly 1 patch topical QWEEK Pain 01/25/24 01/21/24 15:10 History transdermal patch oxycodone 5 mg capsule 2.5 - 5 mg PO Q6H PRN pain 01/25/24 01/25/24 01:25 History pregabalin 150 mg capsule (Lyrica) 150 mg PO TID Nerve pain 01/25/24 01/25/24 08:05 History sennosides 8.6 mg tablet (Funmilayo-randolph) 8.6 mg PO BID Constipation 01/25/24 01/24/24 21:25 History Allergy/AdvReac Type Severity Reaction Status Date / Time tetanus and diphtheria Allergy Intermediate Syncope Verified 01/10/24 11:53 toxoids codeine Allergy Other Verified 01/10/24 11:53 metformin Allergy Hives Verified 01/10/24 11:53 Skxelej-YMC-JeV Reductase Allergy Other Verified 01/10/24 11:53 Inhibitor Sulfa (Sulfonamide Allergy Other Verified 01/10/24 11:53 Antibiotics) Family History Mother Hypertension Cancer Surgical History (Updated 01/25/24 @ 20:[address] Bryson Hernandez MD) History of total right hip arthroplasty History of tooth extraction History of hysterectomy H/O cervical spine surgery History of appendectomy History of cataract surgery Social History household members: family Smoking Status: Former smoker alcohol intake: never substance use type: does not use caffeine: Yes Type: coffee Number of servings: 1 Lab / Micro Data 01/27/24 07:01 01/27/24 07:01 Labs: Laboratory Results - last 24 hr 01/30/24 10:52: POC Glucose 170 H 01/30/24 16:39: POC Glucose 95 01/30/24 21:10: POC Glucose 193 H 01/31/24 05:44: POC Glucose 143 H Assessment & Plan Assessment/Plan (1) Dysphagia: PLAN: 78-year-old with past medical history of esophageal dysphagia thought to be mostly secondary to oropharyngeal dysphagia from not having top teeth. She underwent cookie swallow test and was determined to have retention of food substances in the esophagus and then she also had episodes of aspiration pneumonia. I was asked to see her due to worsening esophageal dysphagia. She will undergo an upper endoscopy to evaluate upper GI tract. She was explained alternatives, risk and benefits including not withstanding bleeding, infection, sepsis, perforation, need for emergent surgery . She will have an ASA of 3. I have examined the patient and the H&P has been reviewed. There are no clinical changes since date of exam.
--- NOTE | 2024-02-01 11:58 | PRE.ANES_ITS ---
ASA Classification* ASA Classification ASA Classification: 3 Assessment & Plan Anesthesia* Anesthesia Assessment Anesthesia Assessment: Discussed sedation and/or anesthesia options, risks, benefits, and alternatives with patient/parents/legal guardian/POA. Questions invited. The patient/parents/legal guardian/POA seems to understand and agrees to proceed with anesthesia plan. Reviewed the physical assessment, medical history, allergy history and patient home medications list prior to surgery/procedure/anesthetic and documented any changes. Performed airway and anesthesia risk assessments. Anesthesia Type Anesthesia Type: MAC Anesthesia Focused Assessment* Temperature: 98 F Pulse Rate: 72 Blood Pressure: 125/48 Respiratory Rate: 16 Pulse Ox: 92 Airway Assessment Mouth opens: >3 cm Mallampati Score: II Focused Labs Anesthesia Preop lab: CBC WBC 8.6 K/mm3 (4.4-11.0) 01/27/24 07:01 RBC 3.71 M/mm3 (4.2-5.4) L 01/27/24 07:01 Hgb 11.2 g/dL (12.0-15.0) L 01/27/24 07:01 Hct 34.3 % (37-47) L 01/27/24 07:01 Plt Count 229 K/mm3 (150-450) 01/27/24 07:01 CHEMISTRY Potassium 4.2 mmol/L (3.5-5.1) 01/27/24 07:01 Sodium 139 mmol/L (136-145) 01/27/24 07:01 Phosphorus 3.5 mg/dL (2.5-4.9) 06/09/22 10:44 BUN 16 mg/dL (7-18) 01/27/24 07:01 Creatinine 1.00 mg/dL (0.55-1.02) 01/27/24 07:01 Glucose 116 mg/dL (74-106) H 01/27/24 07:01 POC Glucose 121 mg/dL (74-106) H 02/01/24 06:06 TSH 1.59 uIU/mL (0.358-3.74) 12/08/23 14:15 COAG PT 14.0 SECONDS (11.7-14.9) 01/10/24 11:30 Pre-Assessment Diagnosis/Proposed Procedure Planned Operative Procedure(s): EGD Anesthesia History Anesthesia History - online media director: Anesthesia History - online media director Hx Hospitalization Yes: 01/13 HIP SURGERY 01/31/24 15:56 Any Problems With Anesthesia No 01/31/24 15:56 Cholinesterase deficiency No 01/31/24 15:56 You/Your Family Experience No 01/31/24 15:56 fever (hyperthermia) with Relationship Recent Exposure to Contagious No 02/01/24 11:14 Disease Does patient have nerve No 01/31/24 15:56 stimulator Patient instructed to have device shut off --Does patient have Pacemaker No 02/01/24 11:14 or ICD? When Was Last Pacemaker Check QUESTION #4 FULL TEXT: You/Your Family Experience fever (hyperthermia) with Anesthesia Last Oral Intake Last Oral intake: Last Oral Intake NPO since 06:00 02/01/24 11:14 Meds taken in AM with sips of Yes 02/01/24 11:14 water? Meds patient instructed to take am of surgery PONV PONV - online media director: PONV - online media director Female Yes 01/31/24 15:56 HX of Motion Sickness No 01/31/24 15:56 HX of N/V After Surgery No 01/31/24 15:56 Non-Smoker Yes 01/31/24 15:56 Duration of Surgery greater No 01/31/24 15:56 than 60 minutes Number of Risk Factors 2 01/31/24 15:56 PONV Score Moderate Risk 01/31/24 15:56 Height & Weight Height & Weight: Anesthesia: Height & Weight Height 5 ft 3 in 02/01/24 11:14 Weight: 95.708 kg 02/01/24 11:14 Body Mass Index (BMI) 37.3 02/01/24 11:14 Respiratory Assessment Respiratory Assessment - online media director: Respiratory Tract Infection Hx - online media director Hx Respiratory Tract Infection No 01/31/24 15:56 STOP Sleep Apnea STOP Sleep Apnea - online media director: STOP Sleep Apnea - online media director Hx Hypertension Yes: CONTROLLED ON MED 01/31/24 15:56 Hx Sleep Apnea No 01/31/24 15:56 CPAP BIPAP Do you snore loudly (louder No 01/31/24 15:56 than talking or can be heard Do you often feel tired/ No 01/31/24 15:56 fatigued/ sleepy during daytime? Has anyone observed you stop No 01/31/24 15:56 breathing during sleep? STOP Results Negative 01/31/24 15:56 QUESTION #5 FULL TEXT : Do you snore loudly (louder than talking or can be heard through closed doors)? Tobacco Use History Tobacco Use History - online media director: Tobacco Use History - online media director Tobacco Use Smoking Status Former smoker 01/31/24 15:56 Hx Tobacco Use No 01/31/24 15:56 Years Smoking Packs Smoked per Day Smoking Cessation Date was No - quit smoking greater 01/31/24 15:56 within the last 15 years than 15 years ago Hx Smoking Cessation Date 12/21/06 01/31/24 15:56 Hx Smoking Cessation No 01/31/24 15:56 Counseling Hematologic Medial History Hematologic Hx - online media director: Hematologic Medical Hx - gum maker Hx of Blood Transfusion No 01/31/24 15:56 Hx of Transfusion in last 3 No 01/31/24 15:56 Months Date of Last Transfusion (if within last 3 months) Ever experience any problems No 01/31/24 15:56 with transfusion(s)? Specify any problems Hx of Preganancy in last 3 No 01/31/24 15:56 Months Nurse Filling Out Transfusion VCHRISTIN 01/31/24 15:56 & Questions: Date: 01/31/24 01/31/24 15:56 Time: 15:56 01/31/24 15:56 Patient unable to answer at this time (ie. confused, unrespo /Reproduction History /Reproductive History - online media director: /Reproductive Hx- online media director Hx Now Gestational Age (in weeks): EDC: Hx Hx Para Hx Section SAB Active Medications Active Medications: Current Medications Generic Name Dose Route Start Last Admin Trade Name Freq PRN Reason Stop Dose Admin Lactated Ringer's 1,000 mls @ 15 mls/hr 02/01/24 11:00 02/01/24 11:40 IV 15 mls/hr .Q48H TYRESE Administration PFSH Medical History (Updated 01/31/24 @ 15:55 by Angela Bose) Wears dentures Wears glasses Post-menopausal Arthritis History of renal disease Anemia Gastric reflux Non-smoker Asthma History of pain when walking History of Holter monitoring History of stress test Cardiology follow-up encounter Atherosclerotic heart disease of [place] coronary artery without angina pectoris Fracture of femoral neck, right, closed Fecal impaction Chest pain Opioid dependence Disease of stomach and duodenum 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 Hyperlipidemia Diabetic polyneuropathy Chronic pain Depression Diabetes mellitus Chronic kidney disease, stage 3b Gastroesophageal reflux disease Coronary artery disease Hypertension Hyperkalemia Debility Hypertension Home Medications ?Medication ?Instructions ?Recorded ?Last Taken ?Type isosorbide mononitrate 30 mg 1 tab PO DAILY heart 11/05/21 Unknown History tablet,extended release 24 hr omeprazole 40 mg capsule,delayed 1 cap PO BID reflux 11/05/21 Unknown History release citalopram 10 mg tablet (Celexa) 10 mg PO DAILY depression 11/09/21 01/25/24 08:00 History albuterol sulfate 90 mcg/actuation 2 puff inhalation Q4H PRN 07/01/22 Unknown History aerosol inhaler amlodipine 5 mg tablet 5 mg PO DAILY Heart 07/01/22 01/25/24 08:05 History aspirin 81 mg tablet,delayed 81 mg PO BID Heart 07/01/22 Unknown History release carvedilol 6.25 mg tablet 6.25 mg PO BID BP 07/01/22 01/25/24 08:00 History insulin glargine U-300 conc 300 30 unit subcut QHS Diabetes 07/19/22 Unknown History unit/mL (3 mL) subcutaneous pen (Toujeo Max U-300 SoloStar) biotin 5 mg capsule 5 mg PO DAILY 07/21/22 Unknown History ferrous sulfate 325 mg (65 mg 325 mg PO DAILY 12/22/22 Unknown History iron) tablet (Feosol) magnesium chloride 71.5 mg 71.5 - 143 mg PO QHS PRN 12/22/22 Unknown History (magnesium chloride) Constipation tablet,delayed release (Slow-Mag) buprenorphine 15 mcg/hour weekly 1 patch transdermal QWEEK 08/18/23 Unknown History transdermal patch insulin lispro 100 unit/mL 5 - 10 unit subcut TID Diabetes 08/18/23 01/24/24 16:10 History subcutaneous pen nitroglycerin 0.4 mg sublingual 0.4 mg sublingual Q5M PRN chest 08/18/23 Unknown History tablet pain cetirizine 10 mg capsule (Zyrtec) 10 mg PO DAILY 01/10/24 Unknown History acetaminophen 325 mg capsule 650 mg PO Q6H PRN Pain 01/25/24 01/25/24 08:05 History buprenorphine 20 mcg/hour weekly 1 patch topical QWEEK Pain 01/25/24 01/21/24 15:10 History transdermal patch oxycodone 5 mg capsule 2.5 - 5 mg PO Q6H PRN pain 01/25/24 01/25/24 01:25 History pregabalin 150 mg capsule (Lyrica) 150 mg PO TID Nerve pain 01/25/24 01/25/24 08:05 History sennosides 8.6 mg tablet (Funmilayo-randolph) 8.6 mg PO BID Constipation 01/25/24 01/24/24 21:25 History Allergy/AdvReac Type Severity Reaction Status Date / Time tetanus and diphtheria Allergy Intermediate Syncope Verified 01/10/24 11:53 toxoids codeine Allergy Other Verified 01/10/24 11:53 metformin Allergy Hives Verified 01/10/24 11:53 Ahmwaso-LDD-FoW Reductase Allergy Other Verified 01/10/24 11:53 Inhibitor Sulfa (Sulfonamide Allergy Other Verified 01/10/24 11:53 Antibiotics) Family History Mother Hypertension Cancer Surgical History (Updated 01/31/24 @ 15:55 by Angela Bose) History of total right hip arthroplasty History of tooth extraction History of hysterectomy H/O cervical spine surgery History of appendectomy History of cataract surgery Social History household members: family Smoking Status: Former smoker alcohol intake: never substance use type: does not use caffeine: Yes Type: coffee Number of servings: 1 Review of Systems (Anesthesia) ROS Narrative System reviewed and no additional complaints, except as documented.
--- NOTE | 2024-02-01 12:00 | EGD_PTH ---
PATIENT: AMAYA EDWARDS LOC: EN U#:[id number] AGE/SX: 78/F ROOM: RE02/01/[address]: Dr. Jayson Celeste DO : 1945 BED: DIS: 02/01/2024 SPEC #: [id number] RECD: 02/02/24 08:49 STATUS: SMITH RENathaly #: [id number] BRNANON: 02/01/24 12:[address]: Jayson Celeste DEPT: SURGICAL PATHOLOGY RECD BY: Tamiko Juarez ENTERED: 02/02/24 10:11 SP TYPE: EGD BIOPSY OT DR: Dr. Bryson Hernandez MD Tissues: Esophagus, NOS Procedures: Special Stain Group I Surgery Specimen Level IV Alcian Blue/PAS (control) HEADER OPERATION: EGD with biopsy, dilation PRE-OP DIAGNOSIS: GI bleed TISSUE SUBMITTED: Distal esophagus biopsy MICROSCOPIC DIAGNOSIS Distal esophagus, biopsy: Fragments of gastroesophageal mucosa with mild chronic inflammation. Intestinal metaplasia (goblet cell metaplasia) not identified. See comment. Rayray 02/03/2024 COMMENT The specimen predominantly consists of squamous mucosa. Alcian blue/PAS stain with matched control is used in the evaluation of the specimen. MICROSCOPIC DESCRIPTION Slides are reviewed. GROSS DESCRIPTION Received in fixative is one container labeled with the patient's name and designated Distal esophagus biopsy. The specimen consists of multiple irregular fragments of light garibay soft tissue that in aggregate measure 2.0 x 0.3 x 0.1 cm. The specimen is totally submitted in one cassette. 02/02/2024 TC:3 CPT:65336,91509
--- NOTE | 2024-02-01 13:06 | OP.EGD_ITS ---
Patient Name: Audra Archer Procedure Date: 02/01/2024 12:45 PM Date of : 1945 Age: 78 Procedure: Upper GI endoscopy Indications: Dysphagia Providers: Jayson Celeste DO Medicines: Monitored Anesthesia Care Patient Profile: This is a 78 year old female. Refer to note in patient chart for documentation of history and physical. Patient has symptoms of chronic dysphagia and dysphagia with solids. The symptoms first began in the remote past. Complications: No immediate complications. Procedure: Pre-Anesthesia Assessment: - Prior to the procedure, a History and Physical was performed, and patient medications and allergies were reviewed. The patient is competent. The risks and benefits of the procedure and the sedation options and risks were discussed with the patient. All questions were answered and informed consent was obtained. Patient identification and proposed procedure were verified by the physician in the pre-procedure area. Mental Status Examination: alert and oriented. Airway Examination: normal oropharyngeal airway and neck mobility. Respiratory Examination: clear to auscultation. CV Examination: normal. Prophylactic Antibiotics: The patient does not require prophylactic antibiotics. Prior Anticoagulants: The patient has taken no anticoagulant or antiplatelet agents. ASA Grade Assessment: III - A patient with severe systemic disease. After reviewing the risks and benefits, the patient was deemed in satisfactory condition to undergo the procedure. The anesthesia plan was to use monitored anesthesia care (MAC). Immediately prior to administration of medications, the patient was re-assessed for adequacy to receive sedatives. The heart rate, respiratory rate, oxygen saturations, blood pressure, adequacy of pulmonary ventilation, and response to care were monitored throughout the procedure. The physical status of the patient was re-assessed after the procedure. After obtaining informed consent, the endoscope was passed under direct vision. Throughout the procedure, the patient's blood pressure, pulse, and oxygen saturations were monitored continuously. The Endoscope was introduced through the mouth, and advanced to the second part of duodenum. The upper GI endoscopy was accomplished without difficulty. The patient tolerated the procedure well. Scope In: 12:54:24 PM Scope Out: 1:00:36 PM Total Procedure Duration Time 0 hours 6 minutes 12 seconds Findings: Abnormal motility was noted at the lower esophageal sphincter. The cricopharyngeus was normal. There are extra peristaltic waves in the esophageal body. The distal esophagus/lower esophageal sphincter is spastic, but gives up passage to the endoscope. Tertiary peristaltic waves are noted. Biopsies were taken with a cold forceps for histology. Verification of patient identification for the specimen was done. Estimated blood loss was minimal. A guidewire was placed and the scope was withdrawn. Dilation was performed with a Savary dilator with no resistance at 60 Fr. The dilation site was examined and showed moderate improvement in luminal narrowing. Estimated blood loss was minimal. A medium-sized hiatal hernia was present. The exam of the stomach was otherwise normal. No gross lesions were noted in the first portion of the duodenum. Impression: - Abnormal esophageal motility, consistent with achalasia. Biopsied. Dilated. - Medium-sized hiatal hernia. - No gross lesions in the first portion of the duodenum. Recommendation: - Return patient to hospital lane for ongoing care. - Full liquid diet today. - Use Protonix (pantoprazole) 40 mg PO BID for 12 weeks. - Continue present medications. Procedure Code(s): --- Professional --- 70183, Esophagogastroduodenoscopy, flexible, transoral; with insertion of guide wire followed by passage of dilator(s) through esophagus over guide wire 31095, 59,51, Esophagogastroduodenoscopy, flexible, transoral; with biopsy, single or multiple CPT copyright 2021 [employer]. All rights reserved. The codes documented in this report are preliminary and upon medical billing coder review may be revised to meet current compliance requirements. Jayson Celeste DO 02/01/2024 1:06:03 PM This report has been signed electronically. Number of Addenda: 0 Note Initiated On: 02/01/2024 12:45 PM
--- NOTE | 2024-02-01 13:06 | OP.CCLET_ITS ---
02/01/2024 Bryson Hernandez MD [address] [place] [address] Re : Upper GI endoscopy procedure for Audra Suzi Dear Dr. Hernandez This procedure was performed on Thursday, February 01, 2024. My impressions and recommendations are as follows: Impressions : - Abnormal esophageal motility, consistent with achalasia. Biopsied. Dilated. - Medium-sized hiatal hernia. - No gross lesions in the first portion of the duodenum. Recommendations : - Return patient to hospital lane for ongoing care. - Full liquid diet today. - Use Protonix (pantoprazole) 40 mg PO BID for 12 weeks. - Continue present medications. My findings are described in the full procedure note, which is enclosed. If I can be of further assistance, please feel free to contact me at . Sincerely, Jayson Celeste, 02/01/2024 1:06:03 PM This report has been signed electronically.
--- NOTE | 2024-02-01 13:08 | PCM.POST.ANE ---
Anesthesia: Postop Eval I Current Vital Signs Temperature: 97 F Pulse Rate: 81 Blood Pressure: 111/46 Respiratory Rate: 16 Pulse Ox: 96 Oxygen Delivery Method: Room Air Assessment Airway patent: Yes Spontaneous unlabored respirations: Yes Mental status: Awake and Calm nausea: No Vomiting: No Anesthesia Complication: No Fluid Hydration Crystalloid volume administer (ml): 300 Total IV fluid infused: 300 Progress Note Anesthesia document: Postop Eval 1 completed: Yes
--- NOTE | 2024-02-01 13:14 | PCM.POSTANE2 ---
Anesthesia Postop Eval I Sum Postop Eval Completion status Anesthesia document: Postop Eval 1 completed: Yes Anesthesia Postop Eval I Summary Anesthesia Postop Eval I Summary: Anesthesia Postop Eval I: Assessment Summary Airway patent Yes 02/01/24 13:11 Spontaneous unlabored Yes 02/01/24 13:11 respirations Mental status Awake,Calm 02/01/24 13:11 nausea No 02/01/24 13:11 Vomiting No 02/01/24 13:11 Anesthesia Postop Eval I: Fluid Summary Crystalloid volume administer 300 02/01/24 13:11 (ml) Colloids volume administered ( ml) Blood Product volume administered (ml) Total IV fluid infused 300 02/01/24 13:11 Anesthesia Postop Eval I: Summary Notes Anesthesia Complication No 02/01/24 13:11 Anesthesia Complication Comment: Post-operative progress note Anesthesia: Postop Eval II Evaluation Mental status: Awake Pain Level: 0 nausea: No Vomiting: No
[2024-02-01 13:39] LABS: Bedside Glucose 114 mg/dL (74-106)
--- NOTE | 2024-02-02 08:40 | PCM.POSTANE2 ---
Anesthesia Postop Eval I Sum Postop Eval Completion status Anesthesia document: Postop Eval 1 completed: Yes Anesthesia Postop Eval I Summary Anesthesia Postop Eval I Summary: Anesthesia Postop Eval I: Assessment Summary Airway patent Yes 02/01/24 13:11 Spontaneous unlabored Yes 02/01/24 13:11 respirations Mental status Awake 02/01/24 13:14 nausea No 02/01/24 13:14 Vomiting No 02/01/24 13:14 Anesthesia Postop Eval I: Fluid Summary Crystalloid volume administer 300 02/01/24 13:11 (ml) Colloids volume administered ( ml) Blood Product volume administered (ml) Total IV fluid infused 300 02/01/24 13:11 Anesthesia Postop Eval I: Summary Notes Anesthesia Complication No 02/01/24 13:11 Anesthesia Complication Comment: Post-operative progress note Anesthesia: Postop Eval II Evaluation Mental status: Awake Pain Level: 0 nausea: No Vomiting: No
== END 2024-02-01 13:57 | disposition home or self-care (01) ==
LOC: EN 11:02 → AC 11:03
PROVIDERS: PCP Family Medicine Geriatric Medicine; Referring Provider Family Medicine Geriatric Medicine; Visit Provider Internal Medicine Gastroenterology
PROC: 0DJ08ZZ Inspection of Upper Intestinal Tract, Via Natural or Artificial Opening Endoscopic (ICD-10-PCS; CPT 43235; principal; 2024-02-01 11:55)
DX: R13.10 Dysphagia, unspecified (principal); E11.22 Type 2 diabetes mellitus with diabetic chronic kidney disease; Z79.4 Long term (current) use of insulin; N18.32 Chronic kidney disease, stage 3b; E78.5 Hyperlipidemia, unspecified; Z87.891 Personal history of nicotine dependence; I12.9 Hypertensive chronic kidney disease with stage 1 through stage 4 chronic kidney disease, or unspecified chronic kidney disease; K44.9 Diaphragmatic hernia without obstruction or gangrene; I25.10 Atherosclerotic heart disease of native coronary artery without angina pectoris; Z96.641 Presence of right artificial hip joint; K21.9 Gastro-esophageal reflux disease without esophagitis; Z79.899 Other long term (current) drug therapy; F32.A Depression, unspecified; Z90.710 Acquired absence of both cervix and uterus; Z90.49 Acquired absence of other specified parts of digestive tract; K22.0 Achalasia of cardia
CPT/HCPCS: 43248; 43239; 82962; 88305; 88312; J7120; C1769; J2405

== ENCOUNTER → 2024-03-12 | Outpatient (CLI) | payer MEDICARE, SELFPAY ==
[2024-03-12 12:06] LABS: Absolute Lymphocyte Count 2.42 X10^3/uL (0.83-4.51); Absolute Neutrophil Count 2.3 X10^3/uL (2.0-7.7); Basophil# 0.07 X10^3/uL; Basophil% 1.2 % (0-1); Eosinophil# 0.29 X10^3/uL; Hematocrit 38.7 % (37-47); Hemoglobin 11.9 g/dL (12.0-15.0); Lymphocyte # 2.42 X10^3/ul (0.83-4.51); Lymphocyte % 41.9 % (19-41); Mean Corp Hgb Conc 30.7 g/dL (32-36); Mean Corpuscular Hgb 28.1 pg (27.0-32.0); Mean Corpuscular Volume 91.3 fL (81-99); Mean Platelet Vol. 11.2 fl (6.2-12.0); Monocyte# 0.63 X10^3/uL; Monocyte% 10.9 % (0-10); NRBC Flagged by Analyzer 0 % (0-5); Neutrophil # 2.28 X10^3/uL (2.7-7.7); Neutrophil % 39.6 % (47-70); Platelet Count 161 K/mm3 (150-450); RBC Distribution Width CV 13.4 % (11.6-14.6); RBC Distribution Width SD 44.9 fl (35.1-43.9); Red Blood Count 4.24 M/mm3 (4.2-5.4); White Blood Count 5.8 K/mm3 (4.4-11.0)
[2024-03-12 12:47] LABS: Vitamin D,25 Hydroxy 60.8 ng/mL
[2024-03-12 12:48] LABS: ALB/GLOB Ratio 0.8 RATIO (0.9-2.4); AST(SGOT) 33 U/L (15-37); Alanine Aminotransfer ALT/SGPT 23 U/L (13-56); Albumin, Serum 3.1 g/dL (3.2-5.0); Alkaline Phosphatase 95 U/L (45-117); Anion Gap 4 (5-15); BUN 22 mg/dL (7-18); BUN/Creat Ratio 15.9 RATIO (10-20); Calcium,Total 9.1 mg/dL (8.5-10.1); Chloride 106 mmol/L (98-107); Creatinine, Serum 1.38 mg/dL (0.55-1.02); EST Glomerular Filtration Rate 39 mL/min (>60); Est Glom Filt Rate - Afr Amer 47 mL/min (>60); Globulin 4.1 g/dL (2.2-4.2); Glucose 182 mg/dL (74-106); Potassium 4.6 mmol/L (3.5-5.1); Protein, Total 7.2 g/dL (6.4-8.2); Sodium Level 138 mmol/L (136-145)
== END | disposition home or self-care (01) ==
LOC: POLAB3 11:36
PROVIDERS: PCP Family Medicine Geriatric Medicine; Visit Provider Family Medicine Geriatric Medicine
DX: E11.42 Type 2 diabetes mellitus with diabetic polyneuropathy (principal); I10 Essential (primary) hypertension; E55.9 Vitamin D deficiency, unspecified
CPT/HCPCS: 36415; 80053; 82306; 84443; 85025

== ENCOUNTER → 2024-04-09 | Outpatient (CLI) | payer MEDICARE, SELFPAY | END | disposition home or self-care (01) | LOC: POLAB3 16:09 | PROVIDERS: PCP Family Medicine Geriatric Medicine; Visit Provider Family Medicine Geriatric Medicine | DX: R68.83 Chills (without fever) (principal) | CPT/HCPCS: 87631 ==

== ENCOUNTER → 2024-06-05 | Outpatient (CLI) | payer MEDICAID, SELFPAY ==
[2024-06-05 14:09] LABS: Absolute Lymphocyte Count 2.68 X10^3/uL (0.83-4.51); Absolute Neutrophil Count 3.9 X10^3/uL (2.0-7.7); Basophil# 0.08 X10^3/uL; Basophil% 1.1 % (0-1); Eosinophil# 0.23 X10^3/uL; Eosinophils% 3.1 % (0-5); Hematocrit 40.1 % (37-47); Hemoglobin 12.9 g/dL (12.0-15.0); Lymphocyte # 2.68 X10^3/ul (0.83-4.51); Lymphocyte % 35.8 % (19-41); Mean Corp Hgb Conc 32.2 g/dL (32-36); Mean Corpuscular Hgb 28.2 pg (27.0-32.0); Mean Corpuscular Volume 87.6 fL (81-99); Mean Platelet Vol. 10.6 fl (6.2-12.0); Monocyte# 0.55 X10^3/uL; Monocyte% 7.3 % (0-10); NRBC Flagged by Analyzer 0 % (0-5); Neutrophil # 3.93 X10^3/uL (2.7-7.7); Neutrophil % 52.4 % (47-70); Platelet Count 168 K/mm3 (150-450); RBC Distribution Width CV 14.9 % (11.6-14.6); RBC Distribution Width SD 47.9 fl (35.1-43.9); Red Blood Count 4.58 M/mm3 (4.2-5.4); White Blood Count 7.5 K/mm3 (4.4-11.0)
[2024-06-05 14:49] LABS: Hemoglobin A1c 6.8 % (3.8-5.6)
[2024-06-05 14:59] LABS: ALB/GLOB Ratio 0.7 RATIO (0.9-2.4); AST(SGOT) 29 U/L (15-37); Alanine Aminotransfer ALT/SGPT 24 U/L (13-56); Albumin, Serum 3.3 g/dL (3.2-5.0); Alkaline Phosphatase 117 U/L (45-117); Anion Gap 5 (5-15); BUN 24 mg/dL (7-18); BUN/Creat Ratio 16.4 RATIO (10-20); Calcium,Total 9.2 mg/dL (8.5-10.1); Chloride 106 mmol/L (98-107); Cholesterol 198 mg/dL (200); Creatinine, Serum 1.46 mg/dL (0.55-1.02); EST Glomerular Filtration Rate 37 mL/min (>60); Est Glom Filt Rate - Afr Amer 44 mL/min (>60); Globulin 4.5 g/dL (2.2-4.2); Glucose 87 mg/dL (74-106); High Density Lipoprotein 58 mg/dL; Potassium 4.9 mmol/L (3.5-5.1); Protein, Total 7.8 g/dL (6.4-8.2); Sodium Level 139 mmol/L (136-145); Triglycerides 136 mg/dL; Very Low Density Lipoprotein 27 mg/dL (5-40)
[2024-06-05 15:24] LABS: Vitamin D,25 Hydroxy 63.9 ng/mL
== END | disposition home or self-care (01) ==
PROVIDERS: PCP Family Medicine Geriatric Medicine; Visit Provider Family Medicine Geriatric Medicine
DX: E11.42 Type 2 diabetes mellitus with diabetic polyneuropathy (principal); I10 Essential (primary) hypertension; E55.9 Vitamin D deficiency, unspecified; E78.5 Hyperlipidemia, unspecified
CPT/HCPCS: 36415; 80053; 80061; 82306; 83036; 84443; 85025

== ENCOUNTER → 2024-08-28 | Outpatient (CLI) | payer MEDICARE, SELFPAY ==
--- NOTE | 2024-08-28 17:01 | CT_ITS ---
PROCEDURE: BRAIN/HEAD WITHOUT CONTRAST 08/28/2024 REASON FOR EXAM: Tension headache TECHNIQUE: Head CT without intravenous contrast. Coronal and Sagittal reconstruction series were provided. One or more dose reduction techniques were used (e.g., Automated exposure control, adjustment of the mA and/or kV according to patient size, use of iterative reconstruction technique. COMPARISON: None FINDINGS: No acute intracranial hemorrhage, mass, mass effect, midline shift or pathologic extra-axial fluid collection. Mild parenchymal atrophy with commensurate increase in CSF containing spaces. Patchy white matter hypodensities, patient demographics favor chronic microvascular ischemic changes. Paranasal sinuses and mastoid air cells are clear. The calvarium is grossly intact. CT/Brain/Head without Contrast IMPRESSION: No acute intracranial abnormality. Chronic microvascular ischemia and involutional changes. Reading Location: [facility]
[2024-08-28 17:32] LABS: Absolute Lymphocyte Count 2.58 X10^3/uL (0.83-4.51); Absolute Neutrophil Count 4.2 X10^3/uL (2.0-7.7); Basophil# 0.08 X10^3/uL; Basophil% 1.1 % (0-1); Eosinophil# 0.18 X10^3/uL; Eosinophils% 2.4 % (0-5); Hematocrit 41.3 % (37-47); Hemoglobin 13.5 g/dL (12.0-15.0); Lymphocyte # 2.58 X10^3/ul (0.83-4.51); Lymphocyte % 33.9 % (19-41); Mean Corp Hgb Conc 32.7 g/dL (32-36); Mean Corpuscular Hgb 29.1 pg (27.0-32.0); Mean Platelet Vol. 10.5 fl (6.2-12.0); Monocyte# 0.49 X10^3/uL; Monocyte% 6.4 % (0-10); NRBC Flagged by Analyzer 0 % (0-5); Neutrophil # 4.24 X10^3/uL (2.7-7.7); Neutrophil % 55.8 % (47-70); Platelet Count 172 K/mm3 (150-450); RBC Distribution Width CV 13.8 % (11.6-14.6); Red Blood Count 4.64 M/mm3 (4.2-5.4); White Blood Count 7.6 K/mm3 (4.4-11.0)
[2024-08-28 18:48] LABS: ALB/GLOB Ratio 0.9 RATIO (0.9-2.4); AST(SGOT) 35 U/L (<=31); Alanine Aminotransfer ALT/SGPT 16 U/L (<=34); Albumin, Serum 3.7 g/dL (3.4-4.8); Alkaline Phosphatase 94 U/L (35-104); Anion Gap 11 (5-15); BUN 16 mg/dL (4-19); BUN/Creat Ratio 13.2 RATIO (10-20); Calcium,Total 9.6 mg/dL (7.6-11.0); Carbon Dioxide 23.5 mmol/L (21.0-32.0); Chloride 104 mmol/L (98-108); Creatinine, Serum 1.19 mg/dL (0.70-1.20); EST Glomerular Filtration Rate 46 (>60); Globulin 4.1 g/dL (2.2-4.2); Glucose 147 mg/dL (70-99); Potassium 4.4 mmol/L (3.3-5.1); Protein, Total 7.7 g/dL (5.9-8.4); Sodium Level 138 mmol/L (133-145); Total Bilirubin 0.46 mg/dL (0.00-1.30); Vitamin D,25 Hydroxy 54.9 ng/mL (30-100)
== END | disposition home or self-care (01) ==
PROVIDERS: PCP Family Medicine Geriatric Medicine; Referring Provider Family Medicine Geriatric Medicine; Visit Provider Family Medicine Geriatric Medicine
DX: G44.209 Tension-type headache, unspecified, not intractable (principal); E11.65 Type 2 diabetes mellitus with hyperglycemia; I10 Essential (primary) hypertension; E55.9 Vitamin D deficiency, unspecified
CPT/HCPCS: 70450; 80053; 82306; 84443; 85025

== ENCOUNTER → 2024-09-20 | Outpatient (CLI) | payer MEDICARE, SELFPAY ==
[2024-09-20 16:10] LABS: Protein, Urine (Random) 17.8 mg/dL (0.0-12.0); Protein:Creat Ratio 162 mg/g CRE (0-200)
[2024-09-20 16:15] LABS: Anion Gap 12 (5-15); BUN 18 mg/dL (4-19); Calcium,Total 9.1 mg/dL (7.6-11.0); Carbon Dioxide 22.6 mmol/L (21.0-32.0); Chloride 102 mmol/L (98-108); EST Glomerular Filtration Rate 46 (>60); Glucose 184 mg/dL (70-99); Potassium 4.6 mmol/L (3.3-5.1); Sodium Level 136 mmol/L (133-145)
== END | disposition home or self-care (01) ==
LOC: LAB.FUTURE 14:20
PROVIDERS: PCP Family Medicine Geriatric Medicine; Referring Provider Internal Medicine Nephrology; Visit Provider Internal Medicine Nephrology
DX: N18.32 Chronic kidney disease, stage 3b (principal)
CPT/HCPCS: 36415; 80048; 82570; 84156

== ENCOUNTER 2024-10-30 17:32 | Inpatient (IN) | payer MEDICARE, MEDICAID, SELFPAY ==
[2024-10-30 17:47] VITALS: BP 179/85; PULSE 74; RESP 15; RESP 18; TEMP 36.4; O2SAT 93; BMI 36.6
[2024-10-30 18:15] LABS: Bedside Glucose 121 mg/dL (74-106)
[2024-10-30 18:30] VITALS: BMI 34.2
--- NOTE | 2024-10-30 18:40 | NURSING ---
Addendum entered by Mony Olivas 10/30/24 19:37: daughter here & explained that pt had to be given narcan x3 at previous hospital d/t overmedicated. Original Note: Spoke with daughter on phone, daughter adamant that pt not get Butrans patch, stated she will discuss with nurse berenice when she arrives. order discontinued and dr singer notified.
--- NOTE | 2024-10-30 21:04 | PCM.HP.STD ---
HPI - General General Date of Admission: 10/30/24 Date of Service: 10/31/24 Chief Complaint: Here for rehabilitation. HPI Narrative AMAYA EDWARDS, is a 79 Female who presents with followin10/22/2024 Admit [facility] General. 10/22/2024 Dr. Stratton performed left total knee arthroplasty. Home medications restarted. DVT prophylaxis. 10/24/2024 Patient developed acute respiratory failure with hypoxia requiring BiPAP. Transfer to ICU. Patient had acute metabolic encephalopathy. Patient improved quickly, oxygen was weaned to room air. Medications adjusted to decrease risk of acute encephalopathy in the future. PT/OT for SNF. 10/30/2024 Admit to TCU with debility, here for rehabilitation, strengthening, prior to discharge home with family. 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25 mg PO BID BP 07/01/22 01/25/24 08:00 History insulin glargine U-300 conc 300 60 unit subcut QHS Diabetes 07/19/22 Unknown History unit/mL (3 mL) subcutaneous pen (Toujeo Max U-300 SoloStar) insulin lispro 100 unit/mL 5 - 10 unit subcut TID Diabetes 08/18/23 01/24/24 16:10 History subcutaneous pen nitroglycerin 0.4 mg sublingual 0.4 mg sublingual Q5M PRN chest 08/18/23 Unknown History tablet pain cetirizine 10 mg capsule (Zyrtec) 10 mg PO DAILY 01/10/24 Unknown History buprenorphine 20 mcg/hour weekly 1 patch topical QWEEK Pain 01/25/24 01/21/24 15:10 History transdermal patch pregabalin 150 mg capsule (Lyrica) 25 mg PO TID Nerve pain 01/25/24 01/25/24 08:05 History acetaminophen 500 mg tablet 1,000 mg (2 x 500 mg) PO Q6H PRN 02/03/24 Unknown Rx Pain Score 1-3 #0 tabs aspirin 81 mg tablet,delayed 81 mg PO BREAKFAST #0 tabs 02/03/24 Unknown Rx release nystatin 100,000 unit/gram topical 1 applic topical BID skin folds 30 02/03/24 Unknown Rx powder (Nyamyc) days #60 grams oxycodone 5 mg tablet 5 mg PO Q4H PRN PRN Pain Score 02/03/24 Unknown Rx 4-10 Or Pre Pt/Ot 7 days #42 tabs sennosides 8.6 mg-docusate sodium 2 tab PO BID 30 days #120 tabs 02/03/24 Unknown Rx 50 mg tablet (Stimulant Laxative Plus) magnesium chloride 71.5 mg 71.5 - 143 mg PO QHS Constipation 10/11/24 Unknown History (magnesium chloride) tablet,delayed release (Slow-Mag) acetaminophen 325 mg tablet 650 mg PO Q6H 1-10 pain 10/30/24 Unknown History aspirin 81 mg tablet,delayed 81 mg PO BID prophylaxis 10/30/24 Unknown History release (Ecotrin Low Strength) lidocaine 4 % topical patch 1 patch topical DAILY pain 10/30/24 Unknown History sennosides 8.6 mg tablet (senna) 17.2 mg PO BID bowels 10/30/24 Unknown History Allergy/AdvReac Type Severity Reaction Status Date / Time inge Allergy Intermediate Anaphylaxis Verified 10/11/24 14:01 tetanus and diphtheria Allergy Intermediate Syncope Verified 10/11/24 14:01 toxoids codeine Allergy Other Verified 10/11/24 14:01 metformin Allergy Hives Verified 10/11/24 14:01 Ifoplog-[id number] Reductase Allergy Other Verified 10/11/24 14:01 Inhibitor Sulfa (Sulfonamide Allergy Other Verified 10/11/24 14:01 Antibiotics) Family History Mother Hypertension Cancer Surgical History History of total right hip arthroplasty History of tooth extraction History of hysterectomy H/O cervical spine surgery History of appendectomy History of cataract surgery Social History household members: family Smoking Status: Former smoker alcohol intake: never substance use type: does not use caffeine: Yes Type: coffee Number of servings: 1 ROS Constitutional Constitutional: Reports weakness; Denies chills, fever(s) or weight gain ENT HEENT: Denies headache(s), nasal congestion or nasal discharge Cardiovascular Cardiovascular: Denies chest pain or palpitations Respiratory/Chest Respiratory/Chest: Denies cough, excessive phlegm production or shortness of breath with exertion Gastrointestinal Gastrointestinal: Denies abdominal pain, nausea or vomiting Genitourinary Genitourinary: Denies dysuria Musculoskeletal Musculoskeletal: Denies joint pain or joint swelling Integumentary Integumentary: Denies rash or wounds Neurologic Neurologic: Denies focal weakness, numbness or tingling Psychiatric Psychiatric: Denies anxiety, auditory hallucinations, depression, homicidal ideation or suicidal ideation Vital Signs Vital Signs Vital Signs: 10/30/24 17:47 10/30/24 17:47 10/30/24 20:29 Temperature 97.5 F L Temperature Source Temporal Pulse Rate 74 Pulse Rhythm Regular Pulse Strength Normal (2+) Normal (2+) Respiratory Rate 18 15 Respiratory Effort Normal Non-Labored Respiratory Depth Normal Blood Pressure 179/85 H Blood Pressure Mean 116 Pulse Ox 93 Oxygen Delivery Method Room Air Room Air Weight Weight: 93.44 kg Body Mass Index (BMI) 34.2 Physical Exam Const alert General Appearance: cooperative HEENT normocephalic Eyes PERRL and EOMs intact bilaterally Neck supple, no JVD and no carotid bruits Resp normal respiratory effort, normal air movement and clear to auscultation bilaterally Cardio regular rate and regular rhythm GI normal to inspection, nondistended, normoactive bowel sounds, non-tender and non-distended Extremity normal capillary refill General Extremity: Negative for edema Skin no rashes or lesions noted General Skin Exam: no breakdown Psych affect normal Appearance: appropriate Results Lab / Micro Data 10/31/24 05:28 10/31/24 05:28 Labs: Laboratory Results - last 24 hr 10/30/24 17:56: POC Glucose 121 H Assessment & Plan Assessment/Plan (1) Debility: (2) Osteoarthritis of left knee: QUALIFIERS: Osteoarthritis type: primary Qualified Code(s): M17.12 - Unilateral primary osteoarthritis, left knee (3) Status post total left knee replacement: (4) Acute respiratory failure with hypoxia: (5) Acute encephalopathy: (6) Coronary artery disease: (7) Gastroesophageal reflux disease: (8) Depression: (9) Essential (primary) hypertension: (10) Type 2 diabetes mellitus with hyperglycemia: (11) Iron deficiency anemia: (12) Leg cramps: (13) Allergic rhinitis: (14) Diabetic polyneuropathy: PLAN: Plan 79 year old female with below past medical history hospitalized for left total knee replacement 10/22/[address] Stratton, postoperative course complicated by acute respiratory failure with hypoxia requiring NIV, encephalopathy, admitted to TCU with debility, here for rehabilitation, strengthening, prior to discharge home with family. Debility - PT/OT. Pain - Tylenol 1000mg q8, Butrans 15mcg patch stopped in hospital, monitor for signs of withdrawal, may need to restart, Lidoderm 1 patch td daily, Oxycodone 5mg q4 prn pain (1-10) Bowel - senna/colace 2 tablets bid, Magnesium citrate 300mL daily prn. Adult immunization - Administer pneumonia vaccine, covid vaccine, flu vaccine as appropriate. DVT prophylaxis - Aspirin 81mg bid thru 11/20/2024. Coronary artery disease - Coreg 6.25mg bid, Isosorbide mononitrate 30mg daily, Aspirin 81mg daily, NTG 0.4mg sl q5m prn. Diabetes Mellitus II - Glargine 60 units qhs, Humalog 5 units tidcm. Leg cramps - Magnesium chloride 64mg qhs. Tinea Corporis - Nystatin powder topical bid. GERD - Pantoprazole 04mg bid. Diabetic polyneuropathy - Lyrica 25mg bid, dose lowered in hospital. Narcotic overdose - Butrans 20mcg patch stopped due to overdose, she was given 3 doses of Narcan. The following psychotropic medication was present on admission: Citalopram 10mg daily. Psychotropic medication therapy is indicated for a diagnosis of: Major Depression. Based on my clinical evaluation, continuation of the medication is necessary at this time. Gradual dose reduction plan (select one): ____ GDR will be attempted. Will monitor patient symptoms and behaviors in response to GDR. __x__ GRD contraindicated. Reason contraindicated: stable chronic watcher automat long goods use.
[2024-10-30 21:29] LABS: Bedside Glucose 231 mg/dL (74-106)
[2024-10-30] MEDS: Insulin Glargine-YFGN 100 UNIT/ML Pen 60 UNIT SC (21:54)
[2024-10-30] MEDS: Pregabalin 25 MG Capsule PO (22:01)
[2024-10-30] MEDS: Magnesium Chloride 64 MG Delay Rel.Tablet PO (22:01)
[2024-10-30] MEDS: Pantoprazole Sodium 40 MG Tablet PO (22:02)
[2024-10-30] MEDS: Acetaminophen 500 MG Tablet 1000 MG PO (22:05)
[2024-10-30] MEDS: Senna/Docusate Sodium 1 Tablet 2 TABLET PO (22:05)
[2024-10-30] MEDS: Nystatin Powder 15gm Bottle 1 APPLIC TOPICAL (22:15)
--- NOTE | 2024-10-30 23:48 | NURSING ---
Patient requesting PRN pain med for left knee pain, Dr. Hernandez paged and updated on request via phone call, new order for Oxy 5mg Q4 hours PRN for pain 1-10, order verified by read back and acknowledged correct.
[2024-10-30] MEDS: oxyCODONE 5 MG Tablet PO (23:56)
[2024-10-31] MEDS: Menthol/Lanolin/Calamine/Znox 113 GM Tube 1 APPLIC TOPICAL ×3 (02:37→21:27)
[2024-10-31 05:58] LABS: Absolute Lymphocyte Count 2.09 X10^3/uL (0.83-4.51); Absolute Neutrophil Count 4.4 X10^3/uL (2.0-7.7); Basophil# 0.08 X10^3/uL; Eosinophil# 0.26 X10^3/uL; Eosinophils% 3.4 % (0-5); Hematocrit 34.3 % (37-47); Hemoglobin 11.4 g/dL (12.0-15.0); Lymphocyte # 2.09 X10^3/ul (0.83-4.51); Mean Corp Hgb Conc 33.2 g/dL (32-36); Mean Corpuscular Hgb 28.8 pg (27.0-32.0); Mean Corpuscular Volume 86.6 fL (81-99); Mean Platelet Vol. 10.1 fl (6.2-12.0); Monocyte# 0.87 X10^3/uL; Monocyte% 11.2 % (0-10); NRBC Flagged by Analyzer 0 % (0-5); Neutrophil # 4.41 X10^3/uL (2.7-7.7); Neutrophil % 56.9 % (47-70); Platelet Count 235 K/mm3 (150-450); RBC Distribution Width CV 13.9 % (11.6-14.6); RBC Distribution Width SD 43.8 fl (35.1-43.9); Red Blood Count 3.96 M/mm3 (4.2-5.4); White Blood Count 7.8 K/mm3 (4.4-11.0)
[2024-10-31] MEDS: Pregabalin 25 MG Capsule PO ×3 (06:20→21:29)
[2024-10-31] MEDS: Acetaminophen 500 MG Tablet 1000 MG PO ×3 (06:21→21:33)
[2024-10-31 06:26] LABS: Bedside Glucose 137 mg/dL (74-106)
[2024-10-31 06:37] LABS: Anion Gap 11 (5-15); BUN 21 mg/dL (4-19); Calcium,Total 9.3 mg/dL (7.6-11.0); Carbon Dioxide 25.3 mmol/L (21.0-32.0); Chloride 103 mmol/L (98-108); Creatinine, Serum 1.05 mg/dL (0.70-1.20); EST Glomerular Filtration Rate 54 (>60); Estimated Creatinine Clearance 48.29 ml/min (50-250); Glucose 134 mg/dL (70-99); Sodium Level 139 mmol/L (133-145)
[2024-10-31 08:10] VITALS: BP 173/74; PULSE 77; RESP 14; TEMP 36.2; O2SAT 94
[2024-10-31] MEDS: Insulin Lispro 100 UNIT/ML INSULN.PEN SC ×3 (08:12→17:54)
[2024-10-31] MEDS: Carvedilol 6.25 MG Tablet PO ×2 (08:15→17:53)
[2024-10-31] MEDS: Citalopram 10 MG Tablet PO (08:16)
[2024-10-31] MEDS: Nystatin Powder 15gm Bottle 1 APPLIC TOPICAL ×2 (08:16→21:30)
[2024-10-31] MEDS: Aspirin E.C. 81 MG Tablet PO ×2 (08:16→17:54)
[2024-10-31] MEDS: Isosorbide Mononitrate 30 MG Tablet PO (08:17)
[2024-10-31] MEDS: Pantoprazole Sodium 40 MG Tablet PO ×2 (08:17→21:31)
[2024-10-31] MEDS: Lidocaine 5% Patch 1 PATCH TOPICAL (08:17)
[2024-10-31] MEDS: Senna/Docusate Sodium 1 Tablet 2 TABLET PO ×2 (08:20→21:31)
--- NOTE | 2024-10-31 09:10 | NURSING ---
Filter Screen Cleaner Note; Activity Asset: Ana Zhu prefers to be called Sherice. She has returned to [facility] and remains independent in her choice of daily activities. She has her smartphone and tablet. She plays her casino game and talks w/family. Sherice requested the [employer] football schedule and visits from the manager graphic and therapy dog when available. Staff will encourage social activities, remind her of weekly activities and respect her right to say no.
[2024-10-31 10:00] VITALS: PULSE 73; RESP 16; O2SAT 99
[2024-10-31] MEDS: oxyCODONE 5 MG Tablet PO ×2 (10:32→21:13)
[2024-10-31] MEDS: Tuberculin,Purif.prot.deriv. 50 TU/ML Vial 0.1 ML ID (10:34)
[2024-10-31 11:37] LABS: Bedside Glucose 142 mg/dL (74-106)
[2024-10-31 11:39] VITALS: BP 128/61; PULSE 68
[2024-10-31] MEDS: Glucerna Shake 120 ML LIQUID PO ×2 (13:31→17:54)
--- NOTE | 2024-10-31 15:26 | CASEMGMT ---
Social Work SW met with patient to complete initial assessment. Introduced self and role. Verified/updated contacts. Patient confirmed code status as full code. Pt requested to add gdtr as secondary HCPOA and provided contact information. SW to complete new advance directives prior to DC as time allows. SW educated to [facility] insurance with NRD 11/01 and continued stay is not guaranteed with each review. Pt's goal is to return home living with dtr, RONI and gdtr at [facility]. SW will continue to follow for DC planning. Deepika Gonzalez SPAGHETTI MACHINE OPERATOR FAST FOOD DELIVERY DRIVER
--- NOTE | 2024-10-31 15:40 | CHAPLAIN ---
Type of Pastoral Visit ___ Initial Visit ___ Follow-up Visit ___ On-call Visit ___ General Patient Visit ___ Spiritual Assessment ___ Family Conference ___ Bereavement ___ Rapid Response ___ Code Blue ___ Other (describe below) Pastoral Care Referral From ___ Patient ___ Family ___ Nurse ___ Physician ___ Oil Field Equipment Mechanic Supervisor ___ Speech Pathology Assistant ___ Other (describe below) Sacrament/Intervention ___ Active listening ___ Anointing ___ Faith ___ Bereavement ___ Communion ___ Freda exploration ___ ___ Life review ___ Prayer ___ Reconciliation ___ Sacrament of Sick ___ Supportive presence ___ Wedding ___ Other (describe below) Pastoral Comments patient was receiving patient care when this visit was attempted
[2024-10-31 16:40] LABS: Bedside Glucose 122 mg/dL (74-106)
[2024-10-31 17:58] VITALS: BP 167/68; PULSE 85
[2024-10-31 18:56] LABS: Bedside Glucose 110 mg/dL (74-106)
[2024-10-31] MEDS: Insulin Glargine-YFGN 100 UNIT/ML Pen 60 UNIT SC (21:28)
[2024-10-31] MEDS: Magnesium Chloride 64 MG Delay Rel.Tablet PO (21:30)
[2024-10-31 21:44] LABS: Bedside Glucose 215 mg/dL (74-106)
[2024-11-01 06:26] LABS: Bedside Glucose 123 mg/dL (74-106)
[2024-11-01] MEDS: Pregabalin 25 MG Capsule PO ×3 (06:48→22:50)
[2024-11-01] MEDS: Acetaminophen 500 MG Tablet 1000 MG PO ×3 (06:49→22:52)
[2024-11-01 09:46] VITALS: BP 135/66; PULSE 77; RESP 16; TEMP 36.6; O2SAT 97
[2024-11-01] MEDS: Glucerna Shake 120 ML LIQUID PO ×3 (09:47→18:34)
[2024-11-01] MEDS: Citalopram 10 MG Tablet PO (09:49)
[2024-11-01] MEDS: Carvedilol 6.25 MG Tablet PO ×2 (09:49→18:33)
[2024-11-01] MEDS: Pantoprazole Sodium 40 MG Tablet PO ×2 (09:49→22:51)
[2024-11-01] MEDS: Aspirin E.C. 81 MG Tablet PO ×2 (09:49→18:33)
[2024-11-01] MEDS: Isosorbide Mononitrate 30 MG Tablet PO (09:50)
[2024-11-01] MEDS: Insulin Lispro 100 UNIT/ML INSULN.PEN SC ×3 (09:50→19:04)
[2024-11-01] MEDS: Lidocaine 5% Patch 1 PATCH TOPICAL (09:50)
[2024-11-01] MEDS: Senna/Docusate Sodium 1 Tablet 2 TABLET PO ×2 (09:53→22:51)
[2024-11-01] MEDS: Menthol/Lanolin/Calamine/Znox 113 GM Tube 1 APPLIC TOPICAL ×2 (09:54→22:48)
[2024-11-01] MEDS: Nystatin Powder 15gm Bottle 1 APPLIC TOPICAL ×2 (09:54→22:50)
[2024-11-01] MEDS: oxyCODONE 5 MG Tablet PO ×3 (10:04→19:13)
[2024-11-01 12:43] LABS: Bedside Glucose 156 mg/dL (74-106)
[2024-11-01 14:57] VITALS: PULSE 77; RESP 17; O2SAT 97
--- NOTE | 2024-11-01 16:07 | CHAPLAIN ---
Type of Pastoral Visit ___ Initial Visit ___ Follow-up Visit ___ On-call Visit ___ General Patient Visit ___ Spiritual Assessment ___ Family Conference ___ Bereavement ___ Rapid Response ___ Code Blue ___ Other (describe below) Pastoral Care Referral From ___ Patient ___ Family ___ Nurse ___ Physician ___ Project Architect ___ Printing Press Machine Operator ___ Other (describe below) Sacrament/Intervention ___ Active listening ___ Anointing ___ Zoroastrian ___ Bereavement ___ Communion ___ Freda exploration ___ ___ Life review ___ Prayer ___ Reconciliation ___ Sacrament of Sick ___ Supportive presence ___ Wedding ___ Other (describe below) Pastoral Comments patient was not in the room; left a calling card
--- NOTE | 2024-11-01 16:21 | PHA.CONS_ITS ---
Documented by User: Dalila Kimbrough 11/01/24 16:47 TCU RX Drug Regimen Review Subjective/Objective Subjective/Objective Subjective: 79 YOF admitted to TCU 10/30/24 s/p hospitalization at [facility] for respiratory failure/encephalopathy secondary to drug overdose. Of note, patient was previously in TCU after a hospitalization at an outside facility s/p left knee arthroplasty. re-admitted to TCU for rehabilitation and strengthening prior to discharge home where she resides with her family. Objective: Allergies inge Allergy (Intermediate, Verified 10/11/24 14:01) Anaphylaxis tetanus and diphtheria toxoids Allergy (Intermediate, Verified 10/11/24 14:01) Syncope codeine Allergy (Verified 10/11/24 14:01) Other metformin Allergy (Verified 10/11/24 14:01) Hives Hcyhhps-DXR-BsT Reductase Inhibitor Allergy (Verified 10/11/24 14:01) Other Sulfa (Sulfonamide Antibiotics) Allergy (Verified 10/11/24 14:01) Other Current Medications Generic Name Dose Route Start Last Admin Trade Name Dovq PRN Reason Stop Dose Admin Acetaminophen 1,000 mg 10/30/24 22:00 11/01/24 14:07 Acetaminophen 500 Mg Tablet PO 1,000 mg Q8 TYRESE Administration Aspirin 81 mg 11/21/24 08:00 Aspirin E.C. 81 Mg Tablet PO BREAKFAST TYRESE Aspirin 81 mg 10/31/24 08:00 11/01/24 09:49 Aspirin E.C. 81 Mg Tablet PO 81 mg BIDCM TYRESE Administration Calamine/Phenol 1 applic 10/31/24 02:08 11/01/24 09:54 Menthol/Lanolin/Calamine/Znox 113 Gm Tube TOPICAL 1 applic BID TYRESE Administration Protocol Carvedilol 6.25 mg 10/31/24 08:00 11/01/24 09:49 Carvedilol 6.25 Mg Tablet PO 6.25 mg BIDCM TYRESE Administration Protocol Citalopram Hydrobromide 10 mg 10/31/24 10:00 11/01/24 09:49 Citalopram 10 Mg Tablet PO 10 mg DAILY TYRESE Administration Insulin Glargine 60 unit 10/30/24 22:00 10/31/24 21:28 Insulin Glargine-Yfgn 100 Unit/Ml Pen SC 40 unit QHS TYRESE Administration Insulin Human Lispro 5 unit 10/31/24 07:45 11/01/24 12:16 Insulin Lispro 100 Unit/Ml Insuln.Pen SC 5 u TIDCM TYRESE Administration Isosorbide Mononitrate 30 mg 10/31/24 10:00 11/01/24 09:50 Isosorbide Mononitrate 30 Mg Tablet PO 30 mg DAILY TYRESE Administration Protocol Lidocaine 1 patch 10/31/24 10:00 11/01/24 09:50 Lidocaine 5% Patch TOPICAL 1 patch DAILY TYRESE Administration Magnesium Chloride 64 mg 10/30/24 22:00 10/31/24 21:30 Magnesium Chloride 64 Mg Delay Rel.Tablet PO 64 mg QHS TYRESE Administration Magnesium Citrate 300 ml 10/30/24 21:11 Magnesium Citrate 300 Ml PO DAILY PRN Constipation Nitroglycerin 0.4 mg 10/30/24 18:25 Nitroglycerin (Inpatient Use) 0.4 Mg Tab.Subl SL Q5M PRN CARDIAC/CHEST PAIN Nutritional Formula (Lactose Free) 120 ml 10/31/24 12:45 11/01/24 12:19 Glucerna Shake 120 Ml Liquid PO 120 ml TIDCM TYRESE Administration Nystatin 1 applic 10/30/24 22:00 11/01/24 09:54 Nystatin Powder 15gm Bottle TOPICAL 1 applic BID [facility] Administration Protocol Oxycodone HCl 5 mg 10/30/24 23:44 11/01/24 14:09 Oxycodone 5 Mg Tablet PO 5 mg Q4H PRN PRN Administration Pain Score 1-10 or Pre PT/OT Pantoprazole Sodium 40 mg 10/30/24 22:00 11/01/24 09:49 Pantoprazole Sodium 40 Mg Tablet PO 40 mg BID TYRESE Administration Pregabalin 25 mg 10/30/24 22:00 11/01/24 14:06 Pregabalin 25 Mg Capsule PO 25 mg TID TYRESE Administration Senna/Docusate Sodium 2 tablet 10/30/24 22:00 11/01/24 09:53 Senna/Docusate Sodium 1 Tablet PO 1 tablet BID TYRESE Administration Tuberculin PPD 0.1 ml 11/07/24 10:00 Tuberculin,Purif.Prot.Deriv. 50 Tu/Ml Vial ID 11/07/24 10:01 X1 ONE Problem List Allergic rhinitis (Acute) Leg cramps (Acute) Iron deficiency anemia (Acute) Type 2 diabetes mellitus with hyperglycemia (Acute) Acute encephalopathy (Acute) Acute respiratory failure with hypoxia (Acute) Status post total left knee replacement (Acute) Essential (primary) hypertension (Acute) Osteoarthritis of left knee (Acute) Diabetic polyneuropathy (Acute) Depression (Acute) Gastroesophageal reflux disease (Acute) Coronary artery disease (Acute) Debility (Acute) Vital Signs Temp Pulse Resp BP Pulse Ox O2 Del Method 98 F 77 17 135/66 H 97 Room Air 11/01/24 09:46 11/01/24 14:57 11/01/24 14:57 11/01/24 09:46 11/01/24 14:57 11/01/24 14:57 Oxygen Delivery Method Room Air Weight: 93.44 kg Body Mass Index (BMI) 34.2 Sodium 139 mmol/L (133-145) 10/31/24 05:28 Potassium 4.0 mmol/L (3.3-5.1) 10/31/24 05:28 Chloride 103 mmol/L (98-108) 10/31/24 05:28 Carbon Dioxide 25.3 mmol/L (21.0-32.0) 10/31/24 05:28 Anion Gap 11 (5-15) 10/31/24 05:28 BUN 21 mg/dL (4-19) H 10/31/24 05:28 Creatinine 1.05 mg/dL (0.70-1.20) 10/31/24 05:28 Est GFR (MDRD) Non-Af 54 (>60) L 10/31/24 05:28 BUN/Creatinine Ratio 20.0 RATIO (10-20) 10/31/24 05:28 Glucose 134 mg/dL (70-99) H 10/31/24 05:28 Assessment/Plan: 1. Pain: Tylenol 1000mg PO Q8h, Lidocaine patch topically Daily, Oxycodone 5mg PO Q4h PRN Pain 1-10. Please continue to monitor for local site irritation, s/s increased/decreased pain, PRN medication usage, oversedation/constipation/respiratory depression with narcotic usage. -Note: Was on Butrans patch, stopped d/t overdose. Monitor for S/S withdrawal. -The patient has gotten 5 doses of PRN oxycodone since admission for knee pain rated 7-10/10. 2. Post-OP DVT Prophylaxis: Aspirin 81mg PO BID thru 10/21/24. Please continue to monitor for s/s clot formation, platelets (last 235 on 10/31), S/S bleeding/bruising. 3. CAD: Aspirin 81mg PO Daily (starting 11/21/24), Coreg 6.25mg PO BID, Imdur 30mg PO Daily, Nitrostat PRN. Please continue to monitor BP (last 135/66), pulse (last 77 BPM), S/S bleeding/bruising, platelets, flushing, dizziness, orthostatic hypotension, headache, PRN medication usage. 4. Type II Diabetes: Glargine 60unit SC QHS, Humalog 5 unit TIDCM. Please continue to monitor for S/S hypoglycemia, BG (range 121-215), A1c (6.8% 06/15/24), injection site reaction/irritation. Last A1c done ~6months ago, please consider obtaining an updated A1c if clinically indicated, thank you. 5. GERD: Protonix 40mg PO BID. Please continue to monitor for stomach upset, headache, GERD flare-up, gas/bloating. Please also encourage resident to use no n-pharmacologic treatments to help minimize GERD exacerbations, also. 6. Diabetic Polyneuropathy: Lyrica 25mg PO TID. Please continue to monitor for dizziness, drowsiness, ataxia. This is a Beer's criteria medication which can increase the risk of falls/fractures in the elderly. Please continue to monitor patient and adjust dose as needed. it is noted that the dose was already reduced from previous admission. 7. Leg Cramps: magnesium Chloride 64mg PO QHS. Please continue to monitor for medication effectiveness. 8. Skin Integrity: Calmoseptine topically BID, Nystatin powder topically BID. Pl ease continue to monitor for skin irritation/ redness, ulcer formation. 9. Bowel: Senna/Docusate 2 tab PO BID, Magnesium Citrate 300mL PO Daily PRN. Please continue to monitor for increased/decreased constipation/diarrhea. If patient develops diarrhea, please discontinue scheduled stool softeners. - The patient has not had a documented BM since admission. If no BM in the next 24-28hrs, please consider administering PRN medication to help facilitate a BM, thank you. Assessment/Plan for indications treated with psychotropic medications: 1. Major Depression: Citalopram 10mg PO Daily. Monitor for diarrhea, nausea, headache, anxiety or drowsiness, suicidal thoughts or behaviors (Boxed Warning), symptoms of bleeding, symptoms of serotonin syndrome (including agitation, confusion, hyperreflexia, rigidity/myoclonus, tremor, tachycardia, tachypnea), sodium levels (last = 139 on 10/31). Monitor for efficacy including resident symptoms, behaviors and indications of distress. Monitor for tolerability including mental status, cognition, excessive sleepiness, withdrawal or decreased participation in activities and decline in physical functioning. Maximize use of nonpharmacologic/behavioral interventions to facilitate dose reduction or discontinuation as appropriate. Please evaluate the appropriateness of GDR unless contraindicated. If appropriate, GDR should be attempted in 2 separate quarters within the first year of use or admission to TCU. If GDR attempted, monitor resident symptoms/behaviors. Medical chart and medication regimen reviewed. The following medication irregularities or issues were identified: 1. Type II Diabetes: Glargine 60unit SC QHS, Humalog 5 unit TIDCM. Last A1c done ~6months ago, please consider obtaining an updated A1c if clinically indicated, thank you. Date Date of Note: 11/01/24 Documented by User: Dr. Bryson Hernandez MD 11/01/24 17:24 TCU RX Drug Regimen Review Provider Comments Provider responsibility Provider Comments to Recommendations by Pharmacy Agree
[2024-11-01 17:42] LABS: Bedside Glucose 176 mg/dL (74-106)
[2024-11-01 18:31] VITALS: BP 151/62; PULSE 73
[2024-11-01 22:25] LABS: Bedside Glucose 228 mg/dL (74-106)
[2024-11-01] MEDS: Insulin Glargine-YFGN 100 UNIT/ML Pen 60 UNIT SC (22:49)
[2024-11-01] MEDS: Magnesium Chloride 64 MG Delay Rel.Tablet PO (22:50)
[2024-11-02] MEDS: oxyCODONE 5 MG Tablet PO ×3 (00:07→17:22)
[2024-11-02] MEDS: Pregabalin 25 MG Capsule PO ×3 (05:34→21:01)
[2024-11-02] MEDS: Acetaminophen 500 MG Tablet 1000 MG PO ×3 (05:35→21:02)
[2024-11-02 06:37] LABS: Bedside Glucose 101 mg/dL (74-106)
[2024-11-02 08:13] VITALS: BP 152/64; PULSE 84; RESP 16; TEMP 36; O2SAT 92
[2024-11-02] MEDS: Citalopram 10 MG Tablet PO (08:16)
[2024-11-02] MEDS: Aspirin E.C. 81 MG Tablet PO ×2 (08:16→17:23)
[2024-11-02] MEDS: Carvedilol 6.25 MG Tablet PO ×2 (08:16→17:22)
[2024-11-02] MEDS: Isosorbide Mononitrate 30 MG Tablet PO (08:17)
[2024-11-02] MEDS: Senna/Docusate Sodium 1 Tablet 2 TABLET PO ×2 (08:17→21:02)
[2024-11-02] MEDS: Lidocaine 5% Patch 1 PATCH TOPICAL (08:17)
[2024-11-02] MEDS: Pantoprazole Sodium 40 MG Tablet PO ×2 (08:17→21:02)
[2024-11-02] MEDS: Nystatin Powder 15gm Bottle 1 APPLIC TOPICAL ×2 (08:18→21:02)
[2024-11-02] MEDS: Menthol/Lanolin/Calamine/Znox 113 GM Tube 1 APPLIC TOPICAL ×2 (08:22→21:04)
[2024-11-02] MEDS: Glucerna Shake 120 ML LIQUID PO ×3 (08:25→17:26)
[2024-11-02 11:47] LABS: Bedside Glucose 191 mg/dL (74-106)
[2024-11-02] MEDS: Insulin Lispro 100 UNIT/ML INSULN.PEN SC ×2 (12:15→17:29)
--- NOTE | 2024-11-02 16:17 | CHAPLAIN ---
Type of Pastoral Visit _x__ Initial Visit ___ Follow-up Visit ___ On-call Visit ___ General Patient Visit ___ Spiritual Assessment ___ Family Conference ___ Bereavement ___ Rapid Response ___ Code Blue ___ Other (describe below) Pastoral Care Referral From __x_ Patient ___ Family ___ Nurse ___ Physician ___ Train Crew Member ___ Hairspring I Inspector ___ Other (describe below) Sacrament/Intervention _x__ Active listening ___ Anointing ___ Quaker ___ Bereavement ___ Communion ___ Freda exploration ___ _x__ Life review _x__ Prayer ___ Reconciliation ___ Sacrament of Sick ___ Supportive presence ___ Wedding ___ Other (describe below) Pastoral Comments patient talks about her decision to have this surgery and the difficulty with it; pt is offered support but she gives lots of family review with concerns and relationship issues instead of any health needs; lots of supportive listening; presence and prayer are welcomed
[2024-11-02 16:38] LABS: Bedside Glucose 170 mg/dL (74-106)
[2024-11-02 21:00] VITALS: PULSE 77; RESP 16
[2024-11-02] MEDS: Insulin Glargine-YFGN 100 UNIT/ML Pen 60 UNIT SC (21:00)
[2024-11-02] MEDS: Magnesium Chloride 64 MG Delay Rel.Tablet PO (21:01)
[2024-11-02 21:32] LABS: Bedside Glucose 227 mg/dL (74-106)
[2024-11-03] MEDS: Pregabalin 25 MG Capsule PO ×3 (05:48→21:46)
[2024-11-03 06:13] LABS: Bedside Glucose 116 mg/dL (74-106)
[2024-11-03] MEDS: Lidocaine 5% Patch 1 PATCH TOPICAL (08:17)
[2024-11-03] MEDS: Nystatin Powder 15gm Bottle 1 APPLIC TOPICAL ×2 (08:18→21:51)
[2024-11-03] MEDS: Citalopram 10 MG Tablet PO (08:18)
[2024-11-03] MEDS: Carvedilol 6.25 MG Tablet PO ×2 (08:18→17:56)
[2024-11-03] MEDS: Isosorbide Mononitrate 30 MG Tablet PO (08:18)
[2024-11-03] MEDS: Aspirin E.C. 81 MG Tablet PO ×2 (08:18→17:55)
[2024-11-03] MEDS: Pantoprazole Sodium 40 MG Tablet PO ×2 (08:18→21:47)
[2024-11-03] MEDS: Menthol/Lanolin/Calamine/Znox 113 GM Tube 1 APPLIC TOPICAL ×2 (08:19→21:50)
[2024-11-03] MEDS: Insulin Lispro 100 UNIT/ML INSULN.PEN SC ×3 (08:24→17:56)
[2024-11-03] MEDS: Glucerna Shake 120 ML LIQUID PO ×3 (08:24→17:55)
[2024-11-03 08:27] VITALS: BP 183/86; PULSE 88; RESP 17; O2SAT 95
[2024-11-03] MEDS: oxyCODONE 5 MG Tablet PO ×3 (12:09→23:54)
[2024-11-03 12:17] LABS: Bedside Glucose 162 mg/dL (74-106)
[2024-11-03 15:32] VITALS: BP 135/53; PULSE 75
[2024-11-03 15:36] VITALS: TEMP 35.7
[2024-11-03 16:37] LABS: Bedside Glucose 186 mg/dL (74-106)
[2024-11-03 18:07] VITALS: BP 177/64; PULSE 72
[2024-11-03 20:15] VITALS: RESP 18
[2024-11-03 21:19] LABS: Bedside Glucose 210 mg/dL (74-106)
[2024-11-03] MEDS: Insulin Glargine-YFGN 100 UNIT/ML Pen 60 UNIT SC (21:44)
[2024-11-03] MEDS: Senna/Docusate Sodium 1 Tablet 2 TABLET PO (21:47)
[2024-11-03] MEDS: Magnesium Chloride 64 MG Delay Rel.Tablet PO (21:47)
[2024-11-04] MEDS: Acetaminophen 500 MG Tablet 1000 MG PO ×3 (01:22→22:16)
[2024-11-04] MEDS: Pregabalin 25 MG Capsule PO ×3 (05:34→22:03)
[2024-11-04 06:30] LABS: Bedside Glucose 114 mg/dL (74-106)
[2024-11-04 08:15] VITALS: BP 143/48; PULSE 93; RESP 16; TEMP 36.7; O2SAT 93
[2024-11-04] MEDS: Glucerna Shake 120 ML LIQUID PO ×3 (08:15→17:49)
[2024-11-04] MEDS: Aspirin E.C. 81 MG Tablet PO ×2 (08:20→17:51)
[2024-11-04] MEDS: Carvedilol 6.25 MG Tablet PO ×2 (08:20→17:51)
[2024-11-04] MEDS: Lidocaine 5% Patch 1 PATCH TOPICAL (08:21)
[2024-11-04] MEDS: Pantoprazole Sodium 40 MG Tablet PO ×2 (08:21→22:06)
[2024-11-04] MEDS: Senna/Docusate Sodium 1 Tablet 2 TABLET PO ×2 (08:21→22:15)
[2024-11-04] MEDS: Isosorbide Mononitrate 30 MG Tablet PO (08:21)
[2024-11-04] MEDS: Citalopram 10 MG Tablet PO (08:21)
[2024-11-04] MEDS: Nystatin Powder 15gm Bottle 1 APPLIC TOPICAL ×2 (08:22→22:05)
[2024-11-04] MEDS: Menthol/Lanolin/Calamine/Znox 113 GM Tube 1 APPLIC TOPICAL ×2 (08:23→22:03)
[2024-11-04 11:35] LABS: Bedside Glucose 136 mg/dL (74-106)
[2024-11-04] MEDS: Insulin Lispro 100 UNIT/ML INSULN.PEN SC ×2 (11:55→17:51)
[2024-11-04] MEDS: oxyCODONE 5 MG Tablet PO ×3 (12:00→22:11)
[2024-11-04 16:00] VITALS: BP 119/55; PULSE 77; RESP 18; TEMP 35.8; O2SAT 95
[2024-11-04 16:40] LABS: Bedside Glucose 169 mg/dL (74-106)
[2024-11-04 21:43] LABS: Bedside Glucose 202 mg/dL (74-106)
[2024-11-04] MEDS: Magnesium Chloride 64 MG Delay Rel.Tablet PO (22:05)
[2024-11-04] MEDS: Insulin Glargine-YFGN 100 UNIT/ML Pen 60 UNIT SC (22:13)
[2024-11-05] MEDS: oxyCODONE 5 MG Tablet PO ×4 (02:15→22:39)
[2024-11-05] MEDS: Pregabalin 25 MG Capsule PO ×3 (05:37→22:37)
[2024-11-05] MEDS: Acetaminophen 500 MG Tablet 1000 MG PO ×3 (05:37→22:39)
[2024-11-05 06:22] LABS: Bedside Glucose 83 mg/dL (74-106)
[2024-11-05] MEDS: Glucerna Shake 120 ML LIQUID PO ×3 (08:13→18:22)
[2024-11-05] MEDS: Citalopram 10 MG Tablet PO (08:14)
[2024-11-05] MEDS: Carvedilol 6.25 MG Tablet PO ×2 (08:14→18:11)
[2024-11-05] MEDS: Aspirin E.C. 81 MG Tablet PO ×2 (08:14→18:11)
[2024-11-05] MEDS: Pantoprazole Sodium 40 MG Tablet PO ×2 (08:15→22:37)
[2024-11-05] MEDS: Lidocaine 5% Patch 1 PATCH TOPICAL (08:15)
[2024-11-05] MEDS: Senna/Docusate Sodium 1 Tablet 2 TABLET PO ×2 (08:15→22:38)
[2024-11-05] MEDS: Isosorbide Mononitrate 30 MG Tablet PO (08:15)
[2024-11-05] MEDS: Nystatin Powder 15gm Bottle 1 APPLIC TOPICAL ×2 (08:23→22:37)
[2024-11-05] MEDS: Menthol/Lanolin/Calamine/Znox 113 GM Tube 1 APPLIC TOPICAL ×2 (08:23→22:36)
[2024-11-05 10:00] VITALS: BP 108/56; PULSE 70; PULSE 78; RESP 16; TEMP 36.4; O2SAT 92; O2SAT 94
[2024-11-05 11:42] LABS: Bedside Glucose 144 mg/dL (74-106)
[2024-11-05] MEDS: Insulin Lispro 100 UNIT/ML INSULN.PEN SC ×2 (11:58→18:14)
[2024-11-05 16:33] LABS: Bedside Glucose 191 mg/dL (74-106)
[2024-11-05] MEDS: COVID VAC 24-25 (12UP)(MODERNA)/PF 50 MCG/0.5 ML SYRINGE IM (18:12)
[2024-11-05 21:38] LABS: Bedside Glucose 199 mg/dL (74-106)
[2024-11-05] MEDS: Insulin Glargine-YFGN 100 UNIT/ML Pen 60 UNIT SC (22:36)
[2024-11-05] MEDS: Magnesium Chloride 64 MG Delay Rel.Tablet PO (22:37)
[2024-11-06] MEDS: oxyCODONE 5 MG Tablet PO ×3 (03:09→19:46)
--- NOTE | 2024-11-06 04:25 | NURSING ---
Patient Non-Compliant With Toileting This Shift. Notified Therapy To Reinforce Toileting. This Nurse Educated Patient On Toileting. Patient Responded Defensively To This Nurse And Nurse Aide. Notified RN. Will Continue To Monitor.
[2024-11-06 05:07] LABS: Bedside Glucose 101 mg/dL (74-106)
[2024-11-06] MEDS: Acetaminophen 500 MG Tablet 1000 MG PO ×3 (05:18→22:28)
[2024-11-06] MEDS: Pregabalin 25 MG Capsule PO ×3 (05:18→22:26)
[2024-11-06 06:14] LABS: Bedside Glucose 87 mg/dL (74-106)
[2024-11-06 06:40] VITALS: PULSE 89; RESP 18; O2SAT 96
[2024-11-06] MEDS: Carvedilol 6.25 MG Tablet PO ×2 (08:17→17:43)
[2024-11-06] MEDS: Aspirin E.C. 81 MG Tablet PO ×2 (08:18→17:43)
[2024-11-06] MEDS: Citalopram 10 MG Tablet PO (08:18)
[2024-11-06] MEDS: Isosorbide Mononitrate 30 MG Tablet PO (08:19)
[2024-11-06] MEDS: Senna/Docusate Sodium 1 Tablet 2 TABLET PO ×2 (08:19→22:27)
[2024-11-06] MEDS: Lidocaine 5% Patch 1 PATCH TOPICAL (08:19)
[2024-11-06] MEDS: Glucerna Shake 120 ML LIQUID PO ×3 (08:19→17:43)
[2024-11-06] MEDS: Pantoprazole Sodium 40 MG Tablet PO ×2 (08:19→22:27)
[2024-11-06 08:20] VITALS: BP 107/67; PULSE 75; RESP 16; TEMP 36.1; O2SAT 94
[2024-11-06] MEDS: Menthol/Lanolin/Calamine/Znox 113 GM Tube 1 APPLIC TOPICAL ×2 (08:20→22:25)
[2024-11-06] MEDS: Nystatin Powder 15gm Bottle 1 APPLIC TOPICAL ×2 (08:20→22:27)
[2024-11-06 11:41] LABS: Bedside Glucose 147 mg/dL (74-106)
[2024-11-06] MEDS: Insulin Lispro 100 UNIT/ML INSULN.PEN SC ×2 (11:59→17:43)
--- NOTE | 2024-11-06 13:30 | NURSING ---
Pt requesting PRN oxy for pain. pt due for Lyrica and Tylenol at this time. Educated patient about increased sedative effects of oxy and Lyrica when taken together. Pt agreeable to trying Lyrica and Tylenol for pain. Let patient know to call out if pain has not subsided and will reevaluate pain at that time. Patient stated that she has not received oxy since 3 am. Educated patient that oxy is ordered as needed and she is to call out to let nursing know if she is having pain.
--- NOTE | 2024-11-06 14:47 | CASEMGMT ---
BIMS () and PHQ2 (2) interviews completed on this date for MDS assessment. YAZMIN León
[2024-11-06 16:35] LABS: Bedside Glucose 135 mg/dL (74-106)
[2024-11-06 16:39] VITALS: BMI 34.4
[2024-11-06 17:40] VITALS: BP 110/50; PULSE 71
--- NOTE | 2024-11-06 18:01 | NURSING ---
Received Call from pharmacy stated that per policy we are not able to use pt's home medications because we have all medications that can be substituted for pts home medications. Pt updated and become upset d/t not being able to take own medications. Pt stated I will take care of this tomorrow. Placed Zyrtec, Tylenol, and SlowMag in pt's lock box in room.
[2024-11-06 21:38] LABS: Bedside Glucose 134 mg/dL (74-106)
[2024-11-06] MEDS: Insulin Glargine-YFGN 100 UNIT/ML Pen 60 UNIT SC (22:25)
[2024-11-06] MEDS: Magnesium Chloride 64 MG Delay Rel.Tablet PO (22:27)
[2024-11-07] MEDS: oxyCODONE 5 MG Tablet PO ×5 (00:12→23:15)
--- NOTE | 2024-11-07 03:23 | NURSING ---
PATIENT AGITATED WITH STAFF, PER FIELD LOGISTICS COORDINATOR REPORT PATIENT REMAINED NON COMPLIANT WITH PERSONAL CARE. PATIENT ALSO REMAINED NON COMMUNICATIVE WITH FIELD LOGISTICS COORDINATOR'S WHEN COMMUNICATED TO, JUST OVERALL UNCOOPERATIVE AND UNSATISFIED WITH STAFF ASSISTANCE. STAFF CONTINUES TO ENCOURAGE PATIENT TO PROMOTE HER INDEPENDENCE BY OFFERING ADL'S AND WALKING TO THE BATHROOM PATIENT DECLINES AND INSISTS TO STILL USE HER BEDSIDE COMMODE THROUGHOUT THE NIGHT BECAUSE SHE DOESN'T WANT TO WAKE UP ALL THE WAY WHEN USING TOILET THROUGHOUT THE NIGHT. WILL CONTINUE TO ENCOURAGE AND EDUCATE PATIENT ON COMPLIANCE AND THE IMPORTANCE OF ADL'S. NOTIFIED RN. WILL CONTINUE TO MONITOR.
[2024-11-07] MEDS: Pregabalin 25 MG Capsule PO ×3 (05:30→22:09)
[2024-11-07] MEDS: Acetaminophen 500 MG Tablet 1000 MG PO ×3 (05:31→22:08)
[2024-11-07 05:40] LABS: Absolute Lymphocyte Count 1.42 X10^3/uL (0.83-4.51); Absolute Neutrophil Count 3.5 X10^3/uL (2.0-7.7); Basophil# 0.09 X10^3/uL; Basophil% 1.5 % (0-1); Eosinophil# 0.21 X10^3/uL; Eosinophils% 3.4 % (0-5); Hematocrit 34.1 % (37-47); Hemoglobin 11.3 g/dL (12.0-15.0); Lymphocyte # 1.42 X10^3/ul (0.83-4.51); Lymphocyte % 23.3 % (19-41); Mean Corp Hgb Conc 33.1 g/dL (32-36); Mean Corpuscular Hgb 28.9 pg (27.0-32.0); Mean Corpuscular Volume 87.2 fL (81-99); Mean Platelet Vol. 9.9 fl (6.2-12.0); Monocyte# 0.84 X10^3/uL; Monocyte% 13.8 % (0-10); NRBC Flagged by Analyzer 0 % (0-5); Neutrophil % 57.5 % (47-70); Platelet Count 294 K/mm3 (150-450); RBC Distribution Width CV 14.9 % (11.6-14.6); RBC Distribution Width SD 47.4 fl (35.1-43.9); Red Blood Count 3.91 M/mm3 (4.2-5.4); White Blood Count 6.1 K/mm3 (4.4-11.0)
[2024-11-07 06:07] LABS: Anion Gap 9 (5-15); BUN 24 mg/dL (4-19); BUN/Creat Ratio 20.2 RATIO (10-20); Calcium,Total 9.4 mg/dL (7.6-11.0); Carbon Dioxide 24.3 mmol/L (21.0-32.0); Chloride 103 mmol/L (98-108); Creatinine, Serum 1.19 mg/dL (0.70-1.20); EST Glomerular Filtration Rate 46 (>60); Glucose 117 mg/dL (70-99); Potassium 4.6 mmol/L (3.3-5.1); Sodium Level 136 mmol/L (133-145)
[2024-11-07 06:34] LABS: Bedside Glucose 117 mg/dL (74-106)
[2024-11-07] MEDS: Nystatin Powder 15gm Bottle 1 APPLIC TOPICAL ×2 (08:07→22:10)
[2024-11-07] MEDS: Glucerna Shake 120 ML LIQUID PO ×3 (08:07→17:02)
[2024-11-07] MEDS: Menthol/Lanolin/Calamine/Znox 113 GM Tube 1 APPLIC TOPICAL ×2 (08:08→22:09)
[2024-11-07] MEDS: Carvedilol 6.25 MG Tablet PO ×2 (08:08→17:02)
[2024-11-07] MEDS: Lidocaine 5% Patch 1 PATCH TOPICAL (08:08)
[2024-11-07] MEDS: Loratadine 10 MG Tablet PO (08:09)
[2024-11-07] MEDS: Aspirin E.C. 81 MG Tablet PO ×2 (08:09→17:02)
[2024-11-07] MEDS: Citalopram 10 MG Tablet PO (08:09)
[2024-11-07] MEDS: Isosorbide Mononitrate 30 MG Tablet PO (08:10)
[2024-11-07] MEDS: Pantoprazole Sodium 40 MG Tablet PO ×2 (08:10→22:08)
[2024-11-07] MEDS: Senna/Docusate Sodium 1 Tablet 2 TABLET PO ×2 (08:10→22:08)
[2024-11-07 08:19] VITALS: BP 117/54; PULSE 78; RESP 18; TEMP 36; O2SAT 94
--- NOTE | 2024-11-07 08:42 | NURSING ---
Ceo & Co Founder Note; MDS for 11/06/2024 Complete
--- NOTE | 2024-11-07 10:41 | CASEMGMT ---
Plan of care meeting held with pt and pts dgt Marry present. Therapy/Nutrition/Activities provided updates on pt progress. Pt is making progress with therapy. MITZI updated pt and dgt that [facility] NRD is today 11/07 and insurance has stated the MATERIALS MANAGEMENT MANAGER is 11/10. Pt's dgt very frustrated by this information as she does not feel pt is ready to return home with dgt at this time. Pt does have steps into the home and has not been able to complete this yet. Pt is max A for toileting and lower body dressing. SW did explain the appeal process if NOMNC is issued. Pt's dgt does plan to appeal if pt is denied continue stay. MITZI provided pt's dgt with written communication on insurance process. Treatment plan to continue at this time. SW to continue to follow for dc planning. Court ARCE
[2024-11-07 11:31] LABS: Bedside Glucose 166 mg/dL (74-106)
[2024-11-07] MEDS: Insulin Lispro 100 UNIT/ML INSULN.PEN SC ×2 (12:16→17:46)
[2024-11-07] MEDS: Tuberculin,Purif.prot.deriv. 50 TU/ML Vial 0.1 ML ID (12:17)
[2024-11-07 17:00] VITALS: BP 120/53; PULSE 67
[2024-11-07 17:11] LABS: Bedside Glucose 249 mg/dL (74-106)
--- NOTE | 2024-11-07 18:51 | NURSING ---
This nurse entered room with dinner tray. PT asked several times to help clear tray for dinner. Pt groaned at nurse and it took several attempts to get her awake enough to respond. Pt had just received Oxycodone 5 mg this nurse asked pt if she felt the Oxycodone was making her drowsy. Pt stated NO I AM TIRED. Nurse then updated pt on Blood sugar and stated to her that she was to receive 5 units of Humalog per order pt stated Okay. When going to administer Humalog Pt asked me how much Humalog She was receiving this nurse stated 5 units. PT yelled at this nurse and stated I DON'T WANT 5 UNITS of INSULIN. This Nurse stated that I let pt know before administering that I was giving her 5 units and she answered okay. Pt Stated I DON'T REMEMBER SAYING THAT I ONLY WANT 3 units. This Nurse then administered 3 units of Humalog and asked pt if she needed anything else and she replied NO.
[2024-11-07 22:00] VITALS: RESP 16
[2024-11-07] MEDS: Magnesium Chloride 64 MG Delay Rel.Tablet PO (22:08)
[2024-11-07] MEDS: Insulin Glargine-YFGN 100 UNIT/ML Pen 60 UNIT SC (22:16)
[2024-11-07 22:52] LABS: Bedside Glucose 199 mg/dL (74-106)
[2024-11-08] MEDS: Pregabalin 25 MG Capsule PO ×3 (06:26→20:54)
[2024-11-08] MEDS: Acetaminophen 500 MG Tablet 1000 MG PO ×3 (06:26→20:55)
[2024-11-08 06:52] LABS: Bedside Glucose 146 mg/dL (74-106)
[2024-11-08 11:01] VITALS: BP 121/49; PULSE 70; RESP 17; TEMP 36.1; O2SAT 96
[2024-11-08] MEDS: oxyCODONE 5 MG Tablet PO ×2 (11:05→20:54)
[2024-11-08] MEDS: Carvedilol 6.25 MG Tablet PO ×2 (11:06→16:34)
[2024-11-08] MEDS: Menthol/Lanolin/Calamine/Znox 113 GM Tube 1 APPLIC TOPICAL ×2 (11:06→20:57)
[2024-11-08] MEDS: Aspirin E.C. 81 MG Tablet PO ×2 (11:06→16:34)
[2024-11-08] MEDS: Citalopram 10 MG Tablet PO (11:07)
[2024-11-08] MEDS: Isosorbide Mononitrate 30 MG Tablet PO (11:07)
[2024-11-08] MEDS: Loratadine 10 MG Tablet PO (11:07)
[2024-11-08] MEDS: Lidocaine 5% Patch 1 PATCH TOPICAL (11:07)
[2024-11-08] MEDS: Pantoprazole Sodium 40 MG Tablet PO ×2 (11:08→20:56)
[2024-11-08] MEDS: Senna/Docusate Sodium 1 Tablet 2 TABLET PO ×2 (11:08→20:56)
[2024-11-08] MEDS: Nystatin Powder 15gm Bottle 1 APPLIC TOPICAL ×2 (11:08→21:00)
[2024-11-08 12:24] LABS: Bedside Glucose 165 mg/dL (74-106)
[2024-11-08] MEDS: Glucerna Shake 120 ML LIQUID PO ×2 (12:28→16:33)
[2024-11-08] MEDS: Insulin Lispro 100 UNIT/ML INSULN.PEN SC ×2 (12:29→16:33)
[2024-11-08 16:37] LABS: Bedside Glucose 187 mg/dL (74-106)
[2024-11-08] MEDS: Magnesium Chloride 64 MG Delay Rel.Tablet PO (20:56)
[2024-11-08] MEDS: Insulin Glargine-YFGN 100 UNIT/ML Pen 60 UNIT SC (21:00)
[2024-11-08 21:35] LABS: Bedside Glucose 168 mg/dL (74-106)
[2024-11-08 22:00] VITALS: PULSE 74; RESP 18; O2SAT 97
[2024-11-09] MEDS: oxyCODONE 5 MG Tablet PO ×4 (01:32→18:43)
--- NOTE | 2024-11-09 03:41 | NURSING ---
Patient refusing to take insulin as ordered at times despite education. Requests to speak with Dr. Hernandez this AM. Written communication left for Dr. Hernandez.
[2024-11-09] MEDS: Acetaminophen 500 MG Tablet 1000 MG PO ×3 (05:37→19:55)
[2024-11-09] MEDS: Pregabalin 25 MG Capsule PO (05:37)
[2024-11-09 07:11] LABS: Bedside Glucose 115 mg/dL (74-106)
[2024-11-09] MEDS: Glucerna Shake 120 ML LIQUID PO (08:27)
[2024-11-09] MEDS: Aspirin E.C. 81 MG Tablet PO ×2 (08:28→18:39)
[2024-11-09] MEDS: Citalopram 10 MG Tablet PO (08:28)
[2024-11-09] MEDS: Senna/Docusate Sodium 1 Tablet 2 TABLET PO ×2 (08:29→19:56)
[2024-11-09] MEDS: Lidocaine 5% Patch 1 PATCH TOPICAL (08:29)
[2024-11-09] MEDS: Pantoprazole Sodium 40 MG Tablet PO ×2 (08:29→19:58)
[2024-11-09] MEDS: Menthol/Lanolin/Calamine/Znox 113 GM Tube 1 APPLIC TOPICAL ×2 (08:33→19:58)
[2024-11-09] MEDS: Nystatin Powder 15gm Bottle 1 APPLIC TOPICAL ×2 (08:34→19:58)
--- NOTE | 2024-11-09 09:13 | NURSING ---
Addendum entered by Meagan Tang 11/12/24 11:01: Call back from Dr. Stratton's office, will cancel appt and have her come to office after DC from TCU. Original Note: Resident adamant she doesn't want to leave to go to ortho f/u while on TCU. RN called and spoke with Dr. Stratton's staff, asked about doing xray here then she could f/u after DC. Physician is out for the day, they will ask him Tuesday and call back.
[2024-11-09 10:00] VITALS: BP 107/48; PULSE 67; RESP 16; TEMP 36.2; O2SAT 93
[2024-11-09] MEDS: Insulin Lispro 100 UNIT/ML INSULN.PEN SC (11:59)
[2024-11-09 12:10] LABS: Bedside Glucose 136 mg/dL (74-106)
[2024-11-09] MEDS: Pregabalin 75 MG Capsule 150 MG PO ×2 (13:40→21:27)
[2024-11-09 17:00] LABS: Bedside Glucose 135 mg/dL (74-106)
[2024-11-09] MEDS: Carvedilol 6.25 MG Tablet PO (18:39)
[2024-11-09 19:53] VITALS: BP 149/55; PULSE 74
[2024-11-09] MEDS: Isosorbide Mononitrate 30 MG Tablet PO (19:57)
[2024-11-09] MEDS: Magnesium Chloride 64 MG Delay Rel.Tablet PO (19:57)
[2024-11-09 22:27] LABS: Bedside Glucose 173 mg/dL (74-106)
[2024-11-09] MEDS: Insulin Glargine-YFGN 100 UNIT/ML Pen 60 UNIT SC (23:03)
[2024-11-10] MEDS: oxyCODONE 5 MG Tablet PO ×2 (00:24→13:22)
[2024-11-10] MEDS: Pregabalin 75 MG Capsule 150 MG PO ×3 (06:37→21:46)
[2024-11-10] MEDS: Acetaminophen 500 MG Tablet 1000 MG PO ×3 (06:38→21:46)
[2024-11-10 06:53] LABS: Bedside Glucose 133 mg/dL (74-106)
[2024-11-10] MEDS: Lidocaine 5% Patch 1 PATCH TOPICAL (09:31)
[2024-11-10] MEDS: Pantoprazole Sodium 40 MG Tablet PO ×2 (09:33→21:47)
[2024-11-10] MEDS: Senna/Docusate Sodium 1 Tablet 2 TABLET PO ×2 (09:33→21:47)
[2024-11-10] MEDS: Citalopram 10 MG Tablet PO (09:34)
[2024-11-10] MEDS: Carvedilol 6.25 MG Tablet PO ×2 (09:34→17:43)
[2024-11-10] MEDS: Aspirin E.C. 81 MG Tablet PO ×2 (09:35→17:43)
[2024-11-10] MEDS: Nystatin Powder 15gm Bottle 1 APPLIC TOPICAL ×2 (09:37→21:53)
[2024-11-10] MEDS: Menthol/Lanolin/Calamine/Znox 113 GM Tube 1 APPLIC TOPICAL ×2 (09:37→21:54)
[2024-11-10 09:39] VITALS: BP 127/70; PULSE 80; RESP 16; TEMP 36.1; O2SAT 92
[2024-11-10 13:07] LABS: Bedside Glucose 214 mg/dL (74-106)
[2024-11-10] MEDS: Insulin Lispro 100 UNIT/ML INSULN.PEN SC ×2 (13:21→17:44)
[2024-11-10] MEDS: Glucerna Shake 120 ML LIQUID PO ×2 (13:21→17:46)
[2024-11-10 16:56] LABS: Bedside Glucose 144 mg/dL (74-106)
[2024-11-10] MEDS: Isosorbide Mononitrate 30 MG Tablet PO (21:49)
[2024-11-10] MEDS: Magnesium Chloride 64 MG Delay Rel.Tablet PO (21:49)
[2024-11-10 21:52] LABS: Bedside Glucose 191 mg/dL (74-106)
[2024-11-10] MEDS: Insulin Glargine-YFGN 100 UNIT/ML Pen 60 UNIT SC (22:24)
[2024-11-11] MEDS: oxyCODONE 5 MG Tablet PO ×4 (00:18→23:27)
[2024-11-11] MEDS: Pregabalin 75 MG Capsule 150 MG PO ×3 (05:46→21:42)
[2024-11-11] MEDS: Acetaminophen 500 MG Tablet 1000 MG PO ×3 (05:46→21:43)
[2024-11-11 06:23] LABS: Bedside Glucose 118 mg/dL (74-106)
[2024-11-11] MEDS: Carvedilol 6.25 MG Tablet PO ×2 (08:53→16:25)
[2024-11-11] MEDS: Senna/Docusate Sodium 1 Tablet 2 TABLET PO ×2 (08:53→21:44)
[2024-11-11] MEDS: Citalopram 10 MG Tablet PO (08:53)
[2024-11-11] MEDS: Pantoprazole Sodium 40 MG Tablet PO ×2 (08:54→21:43)
[2024-11-11] MEDS: Menthol/Lanolin/Calamine/Znox 113 GM Tube 1 APPLIC TOPICAL ×2 (08:54→21:45)
[2024-11-11] MEDS: Aspirin E.C. 81 MG Tablet PO ×2 (08:54→16:25)
[2024-11-11] MEDS: Nystatin Powder 15gm Bottle 1 APPLIC TOPICAL ×2 (08:54→21:44)
[2024-11-11] MEDS: Lidocaine 5% Patch 1 PATCH TOPICAL (08:55)
[2024-11-11] MEDS: Glucerna Shake 120 ML LIQUID PO ×3 (08:59→16:25)
[2024-11-11 11:34] LABS: Bedside Glucose 268 mg/dL (74-106)
[2024-11-11] MEDS: Insulin Lispro 100 UNIT/ML INSULN.PEN SC (12:27)
[2024-11-11 12:55] VITALS: BP 110/50; PULSE 67; RESP 14; TEMP 36.2; O2SAT 93
[2024-11-11 16:57] LABS: Bedside Glucose 143 mg/dL (74-106)
[2024-11-11] MEDS: Magnesium Chloride 64 MG Delay Rel.Tablet PO (21:44)
[2024-11-11] MEDS: Isosorbide Mononitrate 30 MG Tablet PO (21:44)
[2024-11-11] MEDS: Insulin Glargine-YFGN 100 UNIT/ML Pen 60 UNIT SC (21:45)
[2024-11-11 22:00] VITALS: PULSE 71; RESP 16; O2SAT 98
[2024-11-11 22:08] LABS: Bedside Glucose 173 mg/dL (74-106)
[2024-11-12] MEDS: oxyCODONE 5 MG Tablet PO ×3 (03:46→23:25)
[2024-11-12] MEDS: Pregabalin 75 MG Capsule 150 MG PO ×2 (06:06→13:08)
[2024-11-12] MEDS: Acetaminophen 500 MG Tablet 1000 MG PO ×3 (06:06→21:58)
[2024-11-12 06:29] VITALS: RESP 16; O2SAT 93
--- NOTE | 2024-11-12 06:39 | NURSING ---
Patient c/o some pain behind left knee. Recent knee replacement by Dr. Ann. No edema, redness or warmth noted around knee. Negative Shyann's sign. PRN pain medication was administered and effective. Patient takes ASA daily. Will continue to monitor.
[2024-11-12 06:49] LABS: Bedside Glucose 117 mg/dL (74-106)
[2024-11-12] MEDS: Pantoprazole Sodium 40 MG Tablet PO ×2 (08:37→21:58)
[2024-11-12] MEDS: Senna/Docusate Sodium 1 Tablet 2 TABLET PO ×2 (08:37→21:58)
[2024-11-12] MEDS: Citalopram 10 MG Tablet PO (08:37)
[2024-11-12] MEDS: Aspirin E.C. 81 MG Tablet PO ×2 (08:37→17:00)
[2024-11-12] MEDS: Glucerna Shake 120 ML LIQUID PO ×3 (08:37→17:00)
[2024-11-12] MEDS: Carvedilol 6.25 MG Tablet PO ×2 (08:37→17:00)
[2024-11-12] MEDS: Nystatin Powder 15gm Bottle 1 APPLIC TOPICAL (08:38)
[2024-11-12] MEDS: Lidocaine 5% Patch 1 PATCH TOPICAL (08:38)
[2024-11-12] MEDS: Menthol/Lanolin/Calamine/Znox 113 GM Tube 1 APPLIC TOPICAL (08:38)
[2024-11-12 08:52] VITALS: BP 102/55; PULSE 65; RESP 15; TEMP 35.8; O2SAT 93
[2024-11-12 11:43] LABS: Bedside Glucose 196 mg/dL (74-106)
[2024-11-12] MEDS: Insulin Lispro 100 UNIT/ML INSULN.PEN SC (11:55)
--- NOTE | 2024-11-12 13:34 | MDS.RN ---
Information for the MDS was obtained from review of the clinical record, interview of resident, staff, and direct observation of resident?s care.
--- NOTE | 2024-11-12 16:13 | CASEMGMT ---
Addendum entered by Deepika Gonzalez 11/13/24 13:50: [facility]19. Addendum entered by Deepika Gonzalez 11/13/24 08:39: SW sent referral via [facility] to [facility] for PT/OT Original Note: Social Work Insurance issued LCD 11/14, DC 11/15 - SW spoke with pt at bedside. Informed pt of DC 11/15. SW provided NOMNC to pt and educated to appeal rights. Pt verbalized understanding and requested to contact dtr for input. SW agreed. Dtr joined conversation via conference call. Pt and dtr discussed, as pt voiced she needed more time as she is essentially home alone and needs to be able to prepare meals for herself during the day. While dtr voiced pt has been working on steps for at least a week and will be fine at home. SW offered MOW, but pt denied. SW confirmed both are electing to deny to appeal. Both confirmed. SW offered skilled HHC vs OP. Pt prefers HHC and to use [facility] whom pt used prior. SW to place referral. Pt denied DME needs. Dtr can transport. - Plan: DC home with family 11/15, [facility] PT/OT Deepika Gonzalez CONSUMER MARKETING ANALYST RAIL MAINTENANCE WORKER
--- NOTE | 2024-11-12 16:18 | CASEMGMT ---
Social Work SW completed BIMS () and PHQ-2 () for MDS assessment. Deepika Gonzalez CONSUMER LOAN UNDERWRITER AIRCRAFT DESIGNER
[2024-11-12 16:38] LABS: Bedside Glucose 134 mg/dL (74-106)
[2024-11-12 17:06] VITALS: BP 132/50; PULSE 64
--- NOTE | 2024-11-12 19:32 | DS.PCM_ITS ---
Providers Date of Admission: 10/30/24 Primary Care Physician: Dr. Bryson Hernandez MD Reason For Visit: LEFT TOTAL KNEE Diagnosis Discharge Diagnosis (1) Debility: Status: Acute Code(s): R53.81 - Other malaise (2) Osteoarthritis of left knee: Status: Acute Code(s): M17.12 - Unilateral primary osteoarthritis, left knee Qualifiers: Osteoarthritis type: primary Qualified Code(s): M17.12 - Unilateral primary osteoarthritis, left knee (3) Status post total left knee replacement: Status: Acute Code(s): Z96.652 - Presence of left artificial knee joint (4) Acute respiratory failure with hypoxia: Status: Acute Code(s): J96.01 - Acute respiratory failure with hypoxia (5) Acute encephalopathy: Status: Acute Code(s): G93.40 - Encephalopathy, unspecified (6) Coronary artery disease: Status: Acute Code(s): I25.10 - Atherosclerotic heart disease of [place] coronary artery without angina pectoris (7) Gastroesophageal reflux disease: Status: Acute Code(s): K21.9 - Gastro-esophageal reflux disease without esophagitis (8) Depression: Status: Acute Code(s): F32.A - Depression, unspecified (9) Essential (primary) hypertension: Status: Acute Code(s): I10 - Essential (primary) hypertension (10) Type 2 diabetes mellitus with hyperglycemia: Status: Acute Code(s): E11.65 - Type 2 diabetes mellitus with hyperglycemia (11) Iron deficiency anemia: Status: Acute Code(s): D50.9 - Iron deficiency anemia, unspecified (12) Leg cramps: Status: Acute Code(s): R25.2 - Cramp and spasm (13) Allergic rhinitis: Status: Acute Code(s): J30.9 - Allergic rhinitis, unspecified (14) Diabetic polyneuropathy: Status: Acute Code(s): E11.42 - Type 2 diabetes mellitus with diabetic polyneuropathy Plan 79 year old female with below past medical history hospitalized for left total knee replacement 10/22/[address] Cortez, postoperative course complicated by acute respiratory failure with hypoxia requiring NIV, encephalopathy, admitted to TCU with debility, here for rehabilitation, strengthening, prior to discharge home with family. * Debility - PT/OT. * Pain - Tylenol 1000mg q8, Butrans 15mcg patch stopped in hospital, monitor for signs of withdrawal, may need to restart, Lidoderm 1 patch td daily, Oxycodone 5mg q4 prn pain (1-10) * Bowel - senna/colace 2 tablets bid, Magnesium citrate 300mL daily prn. * Adult immunization - Administer pneumonia vaccine, covid vaccine, flu vaccine as appropriate. * DVT prophylaxis - Aspirin 81mg bid thru 11/20/2024. * Coronary artery disease - Coreg 6.25mg bid, Isosorbide mononitrate 30mg daily, Aspirin 81mg daily, NTG 0.4mg sl q5m prn. * Diabetes Mellitus II - Glargine 60 units qhs, Humalog 5 units tidcm. * Leg cramps - Magnesium chloride 64mg qhs. * Tinea Corporis - Nystatin powder topical bid. * GERD - Pantoprazole 04mg bid. * Diabetic polyneuropathy - Lyrica 25mg bid, dose lowered in hospital. * Narcotic overdose - Butrans 20mcg patch stopped due to overdose, she was given 3 doses of Narcan. The following psychotropic medication was present on admission: Citalopram 10mg daily. Psychotropic medication therapy is indicated for a diagnosis of: Major Depression. Based on my clinical evaluation, continuation of the medication is necessary at this time. Gradual dose reduction plan (select one): ____ GDR will be attempted. Will monitor patient symptoms and behaviors in response to GDR. __x__ GRD contraindicated. Reason contraindicated: stable chronic fpc use. Medications at Discharge Home Medications isosorbide mononitrate 30 mg tablet,extended release 24 hr 1 tab PO DAILY heart 11/05/21 omeprazole 40 mg capsule,delayed release 1 cap PO BID reflux 11/05/21 citalopram 10 mg tablet (Celexa) 10 mg PO DAILY depression 11/09/21 carvedilol 6.25 mg tablet 6.25 mg PO BID BP 07/01/22 insulin glargine U-300 conc 300 unit/mL (3 mL) subcutaneous pen (Toujeo Max U- 300 SoloStar) 60 unit subcut QHS Diabetes 07/19/22 insulin lispro 100 unit/mL subcutaneous pen 5 - 10 unit subcut TID Diabetes 08/18/23 nitroglycerin 0.4 mg sublingual tablet 0.4 mg sublingual Q5M PRN chest pain 08/18/23 cetirizine 10 mg capsule (Zyrtec) 10 mg PO DAILY 01/10/24 aspirin 81 mg tablet,delayed release 81 mg PO BREAKFAST #0 tabs 02/03/24 magnesium chloride 71.5 mg (magnesium chloride) tablet,delayed release (Slow- Mag) 71.5 - 143 mg PO QHS Constipation 10/11/24 acetaminophen 500 mg tablet 1,000 mg (2 x 500 mg) PO Q8 #0 tabs 11/12/24 aspirin 81 mg tablet,delayed release 81 mg PO BIDCM 5 days #0 tabs 11/12/24 lidocaine 5 % topical patch 1 patch topical DAILY 30 days #30 ea 11/12/24 oxycodone 5 mg tablet 5 mg PO Q4H PRN PRN Pain Score 1-10 Or Pre Pt/Ot 7 days #42 tabs 11/12/24 pregabalin 75 mg capsule 150 mg (2 x 75 mg) PO TID #0 caps 11/12/24 sennosides 8.6 mg-docusate sodium 50 mg tablet (Stimulant Laxative Plus) 2 tab PO BID 30 days #120 tabs 11/12/24 Hospital Course Operations total knee replacement (Left.) Procedures None Summary of Care Provided Minutes Spent on Discharge: 35 Hospital Course: 79 year old female with below past medical history hospitalized for left total knee replacement 10/22/[address] Cortez, postoperative course complicated by acute respiratory failure with hypoxia requiring NIV, encephalopathy, admitted to TCU with debility, here for rehabilitation, strengthening, prior to discharge home with family. Discharge home with family 11/15/2024, N [facility] PT/OT. Physical Exam Const alert General Appearance: cooperative HEENT normocephalic Eyes PERRL and EOMs intact bilaterally Neck supple, no JVD and no carotid bruits Resp normal respiratory effort, normal air movement and clear to auscultation bilaterally Cardio regular rate and regular rhythm GI normal to inspection, nondistended, normoactive bowel sounds, non-tender and non-distended Extremity normal capillary refill General Extremity: Negative for edema Skin no rashes or lesions noted General Skin Exam: no breakdown Psych affect normal Appearance: appropriate Weight / BMI Weight Weight: 93.848 kg Body Mass Index (BMI) 34.4 ABG / Lab / Microbiology Data 11/07/24 05:12 11/07/24 05:12 Laboratory: Laboratory Results - last 24 hr 11/11/24 21:32: POC Glucose 173 H 11/12/24 06:22: POC Glucose 117 H 11/12/24 11:17: POC Glucose 196 H 11/12/24 16:06: POC Glucose 134 H D/C Instructions Discharge Diet: No restrictions Discharge Activity: Return to Normal Activity, May Shower and Use Walker Weight Bearing Status: Weight bearing as tolerated Call your doctor if you observe: Fever of 101 or Higher, Inability to urinate, Inability to have a bowel movement, Shortness of breath, Dizziness, Fainting spells, Swelling in the ankles, Chest pain and Uncontrolled pain DC O2, CPAP, BIPAP Needs Home O2 Discharge instructions: No Additional Instructions: Discharge home with family 11/15/2024, Harish [facility] PT/OT. Please Follow Up With: benja cortez When: As scheduled. Meaningful Use Info Meaningful Use Meaningful Use Diagnoses (Choose all that apply): None applicable Ischemic Stroke Statin Dosing Therapy Reference: STATIN DOSE THERAPY REFERENCE: * Patients > 75 years receive moderate or high dose statin therapy. * Patients 75 years or YOUNGER should receive HIGH intensity statin dose unless contraindicated. You will be required to document reason for non-treatment if statin daily dose does not meet guidelines. HIGH DOSE STATIN THERAPY DAILY Atorvastatin > than or = to 40 mg Rosuvastatin > than or = to 20 mg Amlodipine + Atorvastatin > than or = to 2.5/40 mg Ezetimibe + Simvastatin 10/80 mg Simvastatin 80mg Discharge Plan Admission Admit Date/Time: 10/30/24 17:32 Primary Reason for Your Visit: Debility. Attending Provider: Bryson Hernandez Chi Primary Care Provider: Bryson Hernandez Chi Instructions Additional Instructions / Restrictions: Discharge home with family 11/15/2024, Harish [facility] PT/OT. Discharge Orders/Prescriptions Prescriptions: New acetaminophen 500 mg Tablet 1,000 mg PO Q8 Qty: 0 0RF aspirin 81 mg Tablet,Delayed Release (Dr/Ec) 81 mg PO BIDCM 5 Days Qty: 0 0RF sennosides-docusate sodium [Stimulant Laxative Plus] 8.6-50 mg Tablet 2 tab PO BID 30 Days Qty: 120 0RF lidocaine 5 % Adhesive Patch,Medicated 1 patch topical DAILY 30 Days Qty: 30 0RF oxycodone 5 mg Tablet 5 mg PO Q4H PRN PRN (Reason: Pain Score 1-10 Or Pre Pt/Ot) 7 Days Qty: 42 0RF pregabalin 75 mg Capsule 150 mg PO TID Qty: 0 0RF Continued Zyrtec 10 mg capsule 10 mg PO DAILY carvedilol 6.25 mg tablet 6.25 mg PO BID insulin glargine U-300 conc [Toujeo Max U-300 SoloStar] 300 unit/mL (3 mL) insulin pen 60 unit subcut QHS nitroglycerin 0.4 mg tablet, sublingual 0.4 mg sublingual Q5M PRN (Reason: chest pain) Rx Instructions: do not exceed 3 doses per episode insulin lispro 100 unit/mL insulin pen 5 - 10 unit subcut TID Rx Instructions: Before meals. Slow-Mag 71.5 mg tablet,delayed release (DR/EC) 71.5 - 143 mg PO QHS isosorbide mononitrate 30 mg tablet extended release 24 hr 1 tab PO DAILY Patient Comments: TAKE 1 TABLET BY MOUTH ONCE DAILY FOR 30 DAYS omeprazole 40 mg capsule,delayed release(DR/EC) 1 cap PO BID Patient Comments: TAKE 1 CAPSULE BY MOUTH TWICE DAILY citalopram [Celexa] 10 mg Tablet 10 mg PO DAILY aspirin 81 mg Tablet,Delayed Release (Dr/Ec) 81 mg PO BREAKFAST Qty: 0 0RF Discontinued buprenorphine 20 mcg/hour patch weekly 1 patch topical QWEEK pregabalin [Lyrica] 150 mg capsule 25 mg PO TID acetaminophen 500 mg Tablet 1,000 mg PO Q6H PRN (Reason: Pain Score 1-3) Qty: 0 0RF sennosides-docusate sodium [Stimulant Laxative Plus] 8.6-50 mg Tablet 2 tab PO BID 30 Days Qty: 120 0RF nystatin [Nyamyc] 100,000 unit/gram Powder 1 applic topical BID 30 Days Qty: 60 3RF Protocol: *Topical Application Instructions APPLICATION INSTRUCTIONS: abdominal folds, under breasts, groin oxycodone 5 mg Tablet 5 mg PO Q4H PRN PRN (Reason: Pain Score 4-10 Or Pre Pt/Ot) 7 Days Qty: 42 0RF acetaminophen 325 mg tablet 650 mg PO Q6H aspirin [Ecotrin Low Strength] 81 mg tablet,delayed release (DR/EC) 81 mg PO BID Patient Comments: x21 days lidocaine 4 % adhesive patch,medicated 1 patch topical DAILY sennosides [senna] 8.6 mg tablet 17.2 mg PO BID Referrals / Follow Up: [facility] [Provider Group] (Follow-up for lung nodule ) Benja Cortez MD [Non-Staff] - (Please make appt for after DC once we have DC date. ) Bryson Hernandez Chi, MD [Primary Care Provider] - Disposition Disposition (needs filled in before D/C Order can be placed): Home Health Service
[2024-11-12 21:29] LABS: Bedside Glucose 218 mg/dL (74-106)
[2024-11-12] MEDS: Pregabalin 50 MG Capsule 150 MG PO (21:55)
[2024-11-12] MEDS: Magnesium Chloride 64 MG Delay Rel.Tablet PO (21:58)
[2024-11-12] MEDS: Isosorbide Mononitrate 30 MG Tablet PO (21:59)
[2024-11-12] MEDS: Insulin Glargine-YFGN 100 UNIT/ML Pen 60 UNIT SC (21:59)
[2024-11-12 22:02] VITALS: BP 136/51; PULSE 61; RESP 18
[2024-11-13] MEDS: oxyCODONE 5 MG Tablet PO ×3 (03:53→23:20)
[2024-11-13] MEDS: Acetaminophen 500 MG Tablet 1000 MG PO ×3 (06:02→21:48)
[2024-11-13] MEDS: Pregabalin 50 MG Capsule 150 MG PO (06:02)
[2024-11-13 06:22] LABS: Bedside Glucose 122 mg/dL (74-106)
[2024-11-13] MEDS: Nystatin Powder 15gm Bottle 1 APPLIC TOPICAL ×2 (08:39→21:47)
[2024-11-13] MEDS: Senna/Docusate Sodium 1 Tablet 2 TABLET PO ×2 (08:39→21:48)
[2024-11-13] MEDS: Menthol/Lanolin/Calamine/Znox 113 GM Tube 1 APPLIC TOPICAL ×2 (08:39→21:47)
[2024-11-13] MEDS: Citalopram 10 MG Tablet PO (08:39)
[2024-11-13] MEDS: Aspirin E.C. 81 MG Tablet PO ×2 (08:39→16:23)
[2024-11-13] MEDS: Pantoprazole Sodium 40 MG Tablet PO ×2 (08:39→21:48)
[2024-11-13] MEDS: Lidocaine 5% Patch 1 PATCH TOPICAL (08:40)
[2024-11-13] MEDS: Glucerna Shake 120 ML LIQUID PO ×3 (08:42→16:25)
[2024-11-13 09:04] VITALS: BP 97/39; PULSE 63
[2024-11-13 11:37] LABS: Bedside Glucose 167 mg/dL (74-106)
[2024-11-13] MEDS: Insulin Lispro 100 UNIT/ML INSULN.PEN SC ×2 (12:27→17:44)
[2024-11-13 13:11] VITALS: BP 99/51; PULSE 63; RESP 17; TEMP 35.8; O2SAT 96
[2024-11-13] MEDS: Pregabalin 75 MG Capsule 150 MG PO ×2 (13:20→21:48)
[2024-11-13 13:50] VITALS: BMI 34.8
[2024-11-13 16:20] VITALS: BP 116/48; PULSE 68
[2024-11-13] MEDS: Carvedilol 6.25 MG Tablet PO (16:23)
[2024-11-13 16:48] LABS: Bedside Glucose 163 mg/dL (74-106)
[2024-11-13] MEDS: Insulin Glargine-YFGN 100 UNIT/ML Pen 60 UNIT SC (21:48)
[2024-11-13] MEDS: Magnesium Chloride 64 MG Delay Rel.Tablet PO (21:48)
[2024-11-13] MEDS: Isosorbide Mononitrate 30 MG Tablet PO (21:52)
[2024-11-13 21:56] LABS: Bedside Glucose 174 mg/dL (74-106)
[2024-11-14] MEDS: oxyCODONE 5 MG Tablet PO ×3 (03:15→22:40)
[2024-11-14 05:49] LABS: Absolute Lymphocyte Count 2.86 X10^3/uL (0.83-4.51); Basophil# 0.07 X10^3/uL; Eosinophil# 0.28 X10^3/uL; Hematocrit 34.4 % (37-47); Lymphocyte # 2.86 X10^3/ul (0.83-4.51); Lymphocyte % 41.3 % (19-41); Mean Corpuscular Hgb 28.8 pg (27.0-32.0); Mean Corpuscular Volume 90.1 fL (81-99); Mean Platelet Vol. 10.5 fl (6.2-12.0); Monocyte# 0.66 X10^3/uL; Monocyte% 9.5 % (0-10); NRBC Flagged by Analyzer 0 % (0-5); Neutrophil # 3.03 X10^3/uL (2.7-7.7); Neutrophil % 43.8 % (47-70); Platelet Count 210 K/mm3 (150-450); RBC Distribution Width CV 15.5 % (11.6-14.6); RBC Distribution Width SD 50.7 fl (35.1-43.9); Red Blood Count 3.82 M/mm3 (4.2-5.4); White Blood Count 6.9 K/mm3 (4.4-11.0)
[2024-11-14] MEDS: Acetaminophen 500 MG Tablet 1000 MG PO ×3 (05:55→22:28)
[2024-11-14] MEDS: Pregabalin 75 MG Capsule 150 MG PO ×3 (05:55→22:24)
[2024-11-14 06:35] LABS: Anion Gap 10 (5-15); BUN 25 mg/dL (4-19); BUN/Creat Ratio 21.6 RATIO (10-20); Calcium,Total 9.3 mg/dL (7.6-11.0); Carbon Dioxide 23.1 mmol/L (21.0-32.0); Chloride 105 mmol/L (98-108); Creatinine, Serum 1.16 mg/dL (0.70-1.20); EST Glomerular Filtration Rate 48 (>60); Estimated Creatinine Clearance 44.07 ml/min (50-250); Glucose 119 mg/dL (70-99); Potassium 5.3 mmol/L (3.3-5.1); Sodium Level 138 mmol/L (133-145)
[2024-11-14 06:43] LABS: Bedside Glucose 113 mg/dL (74-106)
[2024-11-14 08:57] VITALS: BP 101/54; PULSE 71; RESP 18; TEMP 36; O2SAT 94
[2024-11-14] MEDS: Lidocaine 5% Patch 1 PATCH TOPICAL (08:59)
[2024-11-14] MEDS: Carvedilol 6.25 MG Tablet PO ×2 (08:59→18:03)
[2024-11-14] MEDS: Citalopram 10 MG Tablet PO (08:59)
[2024-11-14] MEDS: Senna/Docusate Sodium 1 Tablet 2 TABLET PO ×2 (08:59→22:29)
[2024-11-14] MEDS: Pantoprazole Sodium 40 MG Tablet PO ×2 (09:00→22:28)
[2024-11-14] MEDS: Aspirin E.C. 81 MG Tablet PO ×2 (09:00→18:03)
[2024-11-14] MEDS: Sodium Polystyrene Sulfonate 15 GM/60 ML UDC 30 GM PO (09:00)
[2024-11-14] MEDS: Nystatin Powder 15gm Bottle 1 APPLIC TOPICAL ×2 (09:03→22:25)
[2024-11-14] MEDS: Menthol/Lanolin/Calamine/Znox 113 GM Tube 1 APPLIC TOPICAL ×2 (09:03→22:23)
[2024-11-14] MEDS: Glucerna Shake 120 ML LIQUID PO ×3 (09:07→18:01)
--- NOTE | 2024-11-14 09:33 | CASEMGMT ---
Social Work SW completed advance directives with patient. Patient named daughter Marry Francis as primary and gdtr Skylar Renzo as secondary. Original and copies provided to pt. Copies placed on chart and in HIM bin to be scanned into EMR. Deepika Gonzalez [employer] SUPPORT SPECIALIST [employer] MACHINIST
[2024-11-14 11:31] LABS: Bedside Glucose 137 mg/dL (74-106)
[2024-11-14 16:34] LABS: Bedside Glucose 154 mg/dL (74-106)
[2024-11-14 21:43] LABS: Bedside Glucose 216 mg/dL (74-106)
[2024-11-14] MEDS: Isosorbide Mononitrate 30 MG Tablet PO (22:24)
[2024-11-14] MEDS: Magnesium Chloride 64 MG Delay Rel.Tablet PO (22:25)
[2024-11-14] MEDS: Insulin Glargine-YFGN 100 UNIT/ML Pen 60 UNIT SC (22:30)
[2024-11-15] MEDS: oxyCODONE 5 MG Tablet PO (04:02)
[2024-11-15 06:33] LABS: Anion Gap 10 (5-15); BUN 23 mg/dL (4-19); Calcium,Total 9.2 mg/dL (7.6-11.0); Carbon Dioxide 25.6 mmol/L (21.0-32.0); Chloride 105 mmol/L (98-108); Creatinine, Serum 1.08 mg/dL (0.70-1.20); EST Glomerular Filtration Rate 52 (>60); Estimated Creatinine Clearance 47.34 ml/min (50-250); Glucose 104 mg/dL (70-99); Potassium 4.5 mmol/L (3.3-5.1); Sodium Level 141 mmol/L (133-145)
[2024-11-15] MEDS: Pregabalin 75 MG Capsule 150 MG PO (06:37)
[2024-11-15] MEDS: Acetaminophen 500 MG Tablet 1000 MG PO (06:37)
[2024-11-15 08:19] VITALS: BP 92/42; PULSE 75; RESP 16; TEMP 36.2; O2SAT 93
[2024-11-15] MEDS: Glucerna Shake 120 ML LIQUID PO ×2 (08:28→12:19)
[2024-11-15] MEDS: Citalopram 10 MG Tablet PO (08:32)
[2024-11-15] MEDS: Nystatin Powder 15gm Bottle 1 APPLIC TOPICAL (08:32)
[2024-11-15] MEDS: Lidocaine 5% Patch 1 PATCH TOPICAL (08:32)
[2024-11-15] MEDS: Aspirin E.C. 81 MG Tablet PO (08:32)
[2024-11-15] MEDS: Menthol/Lanolin/Calamine/Znox 113 GM Tube 1 APPLIC TOPICAL (08:33)
[2024-11-15] MEDS: Senna/Docusate Sodium 1 Tablet 2 TABLET PO (08:33)
[2024-11-15] MEDS: Pantoprazole Sodium 40 MG Tablet PO (08:33)
[2024-11-15 09:20] LABS: Bedside Glucose 110 mg/dL (74-106)
[2024-11-15 11:51] LABS: Bedside Glucose 222 mg/dL (74-106)
[2024-11-15 12:15] VITALS: BP 123/49; PULSE 66; RESP 17; TEMP 36.4; O2SAT 98
[2024-11-15] MEDS: Insulin Lispro 100 UNIT/ML INSULN.PEN SC (12:19)
== END 2024-11-15 12:50 | disposition home health service (06) | DRG 561 ==
PROVIDERS: Admitting Provider Family Medicine Geriatric Medicine; PCP Family Medicine Geriatric Medicine; Referring Provider Family Medicine Geriatric Medicine; Visit Provider Family Medicine Geriatric Medicine
DX: Z47.1 Aftercare following joint replacement surgery (principal); B35.4 Tinea corporis; E11.22 Type 2 diabetes mellitus with diabetic chronic kidney disease; D50.9 Iron deficiency anemia, unspecified; E11.42 Type 2 diabetes mellitus with diabetic polyneuropathy; N18.32 Chronic kidney disease, stage 3b; I12.9 Hypertensive chronic kidney disease with stage 1 through stage 4 chronic kidney disease, or unspecified chronic kidney disease; F32.9 Major depressive disorder, single episode, unspecified; T40.604A Poisoning by unspecified narcotics, undetermined, initial encounter; E11.65 Type 2 diabetes mellitus with hyperglycemia; I25.10 Atherosclerotic heart disease of native coronary artery without angina pectoris; E78.5 Hyperlipidemia, unspecified; J30.9 Allergic rhinitis, unspecified; M17.12 Unilateral primary osteoarthritis, left knee; K21.9 Gastro-esophageal reflux disease without esophagitis; Z79.4 Long term (current) use of insulin; Z87.891 Personal history of nicotine dependence; Z79.82 Long term (current) use of aspirin; Z96.652 Presence of left artificial knee joint; Z79.899 Other long term (current) drug therapy; T40.4 Poisoning by, adverse effect of and underdosing of other synthetic narcotics; Z23 Encounter for immunization
CPT/HCPCS: 36415; 80048; 82962; 83036; 85025; 90480; 91322; 97110; 97162; 97166; 97530; 97535; 97802

== ENCOUNTER 2024-12-25 13:41 | Observation (INO) | payer MEDICARE, MEDICAID, SELFPAY ==
[2024-12-25] VITALS (12 sets, daily range): BP systolic 113–170; BP diastolic 58–89; PULSE 65–80; RESP 16–26; TEMP 36.4–37; O2SAT 76–99; BMI 36.5
--- NOTE | 2024-12-25 13:54 | ED.RN ---
Pt reports that dizziness started about two weeks ago, but has gotten progressively worse. Pt also states that she is now incontinent of bowel and bladder which is not her baseline.
--- NOTE | 2024-12-25 14:07 | EKG12_ITS ---
Test Reason : GENERAL Blood Pressure : */* mmHG Vent. Rate : 67 BPM Atrial Rate : 67 BPM P-R Int : 200 ms QRS Dur : 144 ms QT Int : 458 ms P-R-T Axes : 66 26 123 degrees QTcB Int : 483 ms Normal sinus rhythm Left bundle branch block Abnormal ECG Confirmed by ROZ TIPTON, RICHIE ([id number]), offline editor LETTY MOREIRA ([id number]) on 12/26/2024 8:33:48 AM Referred By: Confirmed By: RICHIE COURTNEY MD
--- NOTE | 2024-12-25 14:12 | EX.ED.DYSGE1 ---
HPI History of Present Illness Chief Complaint: General Illness Narrative Narrative: Chief complaint and HPI: Generalized weakness and nausea. 79-year-old female with past medical history of DM2, HTN, HLD, CKD, CAD, left knee replacement in October presents for evaluation of generalized weakness and nausea. Patient states she has been doing well with therapy. States she has no issues with her knee. States she woke up this morning with generalized weakness, nausea. Triage note states emesis but she states she has not vomited. She endorses chills. States she had a short episode of lightheadedness which has resolved. She denies any fever, shortness of breath, URI symptoms, cough chest pain, abdominal pain, diarrhea, constipation, dysuria. States that she often gets dehydrated but feels that she has been eating and drinking well. Review of systems: See HPI Medications: As listed on the chart Allergies: As listed on the chart PFSH: Per chart Vital signs: As listed on the chart. Reviewed. Physical exam: Gen: A&O x3, NAD Head: Normocephalic, atraumatic Eyes: No sclera icterus, conjunctiva clear, PERRL, EOMI ENT: TMs clear BL, dry mucous membranes, posterior oropharynx unremarkable Neck: Trachea midline, No JVD, Full ROM, No meningismus CV: RRR, no murmurs, no peripheral edema Resp: Lungs CTA BL, no w/r/c GI: Abd soft, non-distended, non-tender, no r/r/g Musc: Full ROM, no deformity, left knee incision healed well without signs of infection -no erythema, warmth, swelling of the joint, DP/PT pulses +2 bilaterally Skin: Warm, dry, no rash Neuro: Alert, oriented, grossly intact, sensation intact Psych: Cooperative, appropriate mood and affect [facility] Medical History Wears dentures Wears glasses Post-menopausal Arthritis History of renal disease Anemia Gastric reflux Non-smoker Asthma History of pain when walking History of Holter monitoring History of stress test Cardiology follow-up encounter Atherosclerotic heart disease of [place] coronary artery without angina pectoris Fracture of femoral neck, right, closed Fecal impaction Chest pain Opioid dependence Disease of stomach and duodenum 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 Hyperlipidemia Diabetic polyneuropathy Chronic pain Depression Diabetes mellitus Chronic kidney disease, stage 3b Gastroesophageal reflux disease Coronary artery disease Hypertension Hyperkalemia Debility Hypertension Home Medications ?Medication ?Instructions ?Recorded ?Last Taken ?Type isosorbide mononitrate 30 mg 1 tab PO DAILY heart 11/05/21 12/25/24 History tablet,extended release 24 hr omeprazole 40 mg capsule,delayed 1 cap PO BID reflux 11/05/21 12/25/24 History release citalopram 10 mg tablet (Celexa) 10 mg PO DAILY depression 11/09/21 12/24/24 History carvedilol 6.25 mg tablet 6.25 mg PO BID BP 07/01/22 12/25/24 History insulin glargine U-300 conc 300 60 unit subcut QHS Diabetes 07/19/22 12/24/24 History unit/mL (3 mL) subcutaneous pen (Toujeo Max U-300 SoloStar) insulin lispro 100 unit/mL 5 - 10 unit subcut TID Diabetes 08/18/23 01/24/24 16:10 History subcutaneous pen nitroglycerin 0.4 mg sublingual 0.4 mg sublingual Q5M PRN chest 08/18/23 Unknown History tablet pain cetirizine 10 mg capsule (Zyrtec) 10 mg PO DAILY 01/10/24 12/25/24 History aspirin 81 mg tablet,delayed 81 mg PO BREAKFAST #0 tabs 02/03/24 12/24/24 Rx release magnesium chloride 71.5 mg 71.5 - 143 mg PO QHS Constipation 10/11/24 12/24/24 History (magnesium chloride) tablet,delayed release (Slow-Mag) acetaminophen 500 mg tablet 1,000 mg (2 x 500 mg) PO Q8 #0 tabs 11/12/24 Unknown Rx lidocaine 5 % topical patch 1 patch topical DAILY 30 days #30 11/12/24 Unknown Rx ea oxycodone 5 mg tablet 5 mg PO Q4H PRN PRN Pain Score 11/12/24 Unknown Rx 1-10 Or Pre Pt/Ot 7 days #42 tabs oxycodone 5 mg tablet 5 mg PO Q4H PRN pain 7 days #42 11/12/24 Unknown Rx tabs pregabalin 75 mg capsule 150 mg (2 x 75 mg) PO TID #0 caps 11/12/24 Unknown Rx Allergy/AdvReac Type Severity Reaction Status Date / Time inge Allergy Intermediate Anaphylaxis Verified 12/25/24 13:45 tetanus and diphtheria Allergy Intermediate Syncope Verified 12/25/24 13:45 toxoids codeine Allergy Other Verified 12/25/24 13:45 metformin Allergy Hives Verified 12/25/24 13:45 [id number] Reductase Allergy Other Verified 12/25/24 13:45 Inhibitor Sulfa (Sulfonamide Allergy Other Verified 12/25/24 13:45 Antibiotics) Family History Mother Hypertension Cancer Surgical History H/O knee surgery History of total right hip arthroplasty History of tooth extraction History of hysterectomy H/O cervical spine surgery History of appendectomy History of cataract surgery Social History household members: family Smoking Status: Former smoker alcohol intake: never substance use type: does not use caffeine: Yes Type: coffee Number of servings: 1 EXAM Physical Exam Const Vital Signs: 12/25/24 13:41 12/25/24 13:51 12/25/24 14:36 Temperature 97.5 F L Temperature Source Oral Pulse Rate Respiratory Rate 26 H Respiratory Pattern Normal Blood Pressure 170/78 H Blood Pressure Mean 108 Pulse Ox 92 83 Oxygen Delivery Method Room Air Room Air 12/25/24 14:38 12/25/24 15:41 12/25/24 16:02 Temperature Temperature Source Pulse Rate 78 Respiratory Rate 19 H Respiratory Pattern Blood Pressure 164/83 H Blood Pressure Mean 110 Pulse Ox 83 95 76 Oxygen Delivery Method Room Air Room Air Room Air 12/25/24 16:02 12/25/24 17:00 12/25/24 17:46 Temperature 98.6 F Temperature Source Pulse Rate 69 71 Respiratory Rate 20 H 16 Respiratory Pattern Blood Pressure 113/71 155/89 H Blood Pressure Mean 85 111 Pulse Ox 81 99 96 Oxygen Delivery Method Room Air Room Air 12/25/24 19:00 Temperature Temperature Source Pulse Rate 65 Respiratory Rate 20 H Respiratory Pattern Blood Pressure 134/58 H Blood Pressure Mean 83 Pulse Ox 97 Oxygen Delivery Method Room Air MDM MDM MDM Narrative Medical decision making narrative: 79-year-old female with past medical history of DM2, HTN, HLD, CKD, CAD, left knee replacement in October presents for evaluation of generalized weakness and nausea. Onset of symptoms today. Had a short episode of lightheadedness earlier this morning that quickly resolved. Associated symptom is chills. On presentation, patient in no acute distress. Nontoxic-appearing. Afebrile. Differential diagnosis includes but is not limited to dehydration, SUSAN, electrolyte abnormality, UTI, viral illness, pneumonia, orthostatic hypotension, suspect less likely ACS. Although patient endorses nausea she denies any abdominal pain. Abdominal exam is benign therefore do not think any CT abdomen pelvis is needed. Patient already received 8 mg of p.o. Zofran prior to arrival. NS bolus ordered. Laboratory workup ordered including chest x-ray. CBC without leukocytosis or anemia. Platelets unremarkable. CMP relatively unremarkable. Magnesium level unremarkable. Lipase unremarkable. UA negative for UTI. COVID, flu, RSV negative. Troponin negative x 2. All patient was lying flat and sleeping she became hypoxic with SpO2 in the 80s. Patient states she was told she had PABLO in the past but could not tolerate CPAP. She has not followed up for PABLO. However given patient recently just had knee surgery, cannot rule out PE. CTA chest ordered. Pelvic ultrasound showed normal transabdominal CTA of the chest negative for PE. Patient has pulmonary nodules bilaterally. Patient will need further workup outpatient. Every time patient sleeps here in the emergency department, she drops her oxygen to the low 80s. Patient likely has sleep apnea. Patient does not have oxygen at home. Given her hypoxia when she sleeps, hospitalist was consulted for possible admission. They spoke with Dr. Portillo, the care technician. No need for admission for the hypoxia. She can follow-up outpatient in their office for PABLO. We did attempt to ambulate the patient in the emergency department however she was unable to ambulate due to generalized weakness and now describing vertigo with room spinning. Meclizine ordered. After meclizine, we attempted to reambulate the patient again however she states she cannot ambulate due to generalized weakness. Patient will warrant admission for PT/OT evaluation and possible rehab. Patient confirmed understand the plan. Social work saw the patient as well, agrees patient will need admission for a rehab. Dr. Holland the hospice accepted admission. EKG: Interpreted by me/EM physician: EKG shows normal sinus rhythm with left bundle branch block. Heart rate 67. This is the same as previous EKG in October Diagnostic: Interpreted by me/EM physician: Chest x-ray without pneumonia, effusion, cardiomegaly, pneumothorax. Radiology in agreement. Impression: 1. Generalized weakness 2. Dizziness 3. PABLO with nocturnal hypoxia Lab Data Labs: Laboratory Results - last 24 hr 12/25/24 12/25/24 12/25/24 13:50 15:20 15:57 WBC 9.0 RBC 4.26 Hgb 12.4 Hct 38.1 MCV 89.4 MCH 29.1 MCHC 32.5 RDW Std Deviation 48.2 H RDW Coeff of Sarah 14.8 H Plt Count 175 MPV 11.2 Immature Gran % (Auto) 0.600 Neut % (Auto) 65.1 Lymph % (Auto) 24.9 [place] % (Auto) 6.8 Eos % (Auto) 1.9 Baso % (Auto) 0.7 Absolute Neuts (auto) 5.9 Absolute Lymphs (auto) 2.24 Nucleated RBC % 0 Sodium 140 Potassium 4.6 Chloride 105 Carbon Dioxide 24.2 Anion Gap 11 BUN 18 Creatinine 1.06 Estim Creat Clear Calc 49.48 L Est GFR (MDRD) Non-Af 53 L BUN/Creatinine Ratio 16.9 Glucose 145 H Calcium 9.6 Magnesium 1.9 Total Bilirubin 0.35 AST 37 H ALT 22 Alkaline Phosphatase 104 Troponin T High Sens 10 Troponin T Hi Sens 2 Hr 9 Total Protein 7.7 Albumin 3.9 Globulin 3.9 Albumin/Globulin Ratio 1.0 Lipase 24 Urine Color Yellow Urine Clarity Clear Urine pH 6.0 Ur Specific [place] 1.015 Urine Protein 15 H Urine Glucose (UA) Normal Urine Ketones Negative Urine Occult Blood 50 H Urine Nitrite Negative Urine Bilirubin Negative Urine Urobilinogen Normal Ur Leukocyte Esterase Negative Urine RBC 0-5 SEEN Urine WBC 0-5 SEEN Ur Squamous Epith Cells 5-10 SEEN Urine Bacteria 0 SEEN Hyaline Casts 0-5 SEEN Urine Mucus 0 SEEN Radiography Diagnostic Testing: Clinical Impression(s) from Imaging Studies Chest X-Ray 12/25/24 14:40 IMPRESSION: NO ACUTE FINDINGS. Reading Location: [id number] Chest CTA 12/25/24 15:21 IMPRESSION: 1. No evidence of pulmonary embolus. 2. Pulmonary nodules bilaterally, that are less than 6.0 mm in size. According to the 2017 Fleischner criteria, if the patient is low risk, no routine follow-up is recommended. If the patient is high risk, an optional CT at 12 months is recommended. Reading Location: [facility] Discharge Plan Triage Chief Complaint: General Illness ED Provider: Eyal East Dx/Rx/DC Orders Prescriptions: No Action Zyrtec 10 mg capsule 10 mg PO DAILY carvedilol 6.25 mg tablet 6.25 mg PO BID insulin glargine U-300 conc [Toujeo Max U-300 SoloStar] 300 unit/mL (3 mL) insulin pen 60 unit subcut QHS nitroglycerin 0.4 mg tablet, sublingual 0.4 mg sublingual Q5M PRN (Reason: chest pain) Rx Instructions: do not exceed 3 doses per episode insulin lispro 100 unit/mL insulin pen 5 - 10 unit subcut TID Rx Instructions: Before meals. Slow-Mag 71.5 mg tablet,delayed release (DR/EC) 71.5 - 143 mg PO QHS isosorbide mononitrate 30 mg tablet extended release 24 hr 1 tab PO DAILY Patient Comments: TAKE 1 TABLET BY MOUTH ONCE DAILY FOR 30 DAYS omeprazole 40 mg capsule,delayed release(DR/EC) 1 cap PO BID Patient Comments: TAKE 1 CAPSULE BY MOUTH TWICE DAILY citalopram [Celexa] 10 mg Tablet 10 mg PO DAILY aspirin 81 mg Tablet,Delayed Release (Dr/Ec) 81 mg PO BREAKFAST Qty: 0 0RF acetaminophen 500 mg Tablet 1,000 mg PO Q8 Qty: 0 0RF lidocaine 5 % Adhesive Patch,Medicated 1 patch topical DAILY 30 Days Qty: 30 0RF oxycodone 5 mg Tablet 5 mg PO Q4H PRN PRN (Reason: Pain Score 1-10 Or Pre Pt/Ot) 7 Days Qty: 42 0RF pregabalin 75 mg Capsule 150 mg PO TID Qty: 0 0RF oxycodone 5 mg tablet 5 mg PO Q4H PRN (Reason: pain) 7 Days Qty: 42 0RF Primary Care Provider: Bryson Hernandez Chi Referrals: Bryson Hernandez Chi, MD [Primary Care Provider] - Print Language: Albanian
[2024-12-25 14:25] LABS: Hematocrit 38.1 % (37-47); Hemoglobin 12.4 g/dL (12.0-15.0); Immature Granulocytes Count 0.050 X10^3/uL (0.0-0.0); Mean Corp Hgb Conc 32.5 g/dL (32-36); Mean Corpuscular Volume 89.4 fL (81-99); Mean Platelet Vol. 11.2 fl (6.2-12.0); NRBC Flagged by Analyzer 0 % (0-5); Platelet Count 175 K/mm3 (150-450); RBC Distribution Width CV 14.8 % (11.6-14.6); RBC Distribution Width SD 48.2 fl (35.1-43.9); Red Blood Count 4.26 M/mm3 (4.2-5.4); White Blood Count 9.0 K/mm3 (4.4-11.0)
--- NOTE | 2024-12-25 14:40 | RAD_ITS ---
PROCEDURE: CHEST PA AND LATERAL 12/25/2024 REASON FOR EXAM: WEAKNESS TECHNIQUE: CHEST PA AND LATERAL COMPARISON: None FINDINGS: Hardware: EKG electrodes are seen. Heart: The heart size is normal. Mediastinum: The mediastinal contour is unremarkable. Lungs: Hyperinflation. The lungs are clear. Bones: Osteopenia of the thoracic vertebrae. RAD/Chest PA and Lateral IMPRESSION: NO ACUTE FINDINGS. Reading Location: [id number]
[2024-12-25] MEDS: 0.9% Normal Saline (1000mL) 1,000 ML 1000 ML IV (14:55)
[2024-12-25 15:08] LABS: Lipase 24 U/L (13-75)
[2024-12-25 15:09] LABS: AST(SGOT) 37 U/L (<=31); Alanine Aminotransfer ALT/SGPT 22 U/L (<=34); Albumin, Serum 3.9 g/dL (3.4-4.8); Alkaline Phosphatase 104 U/L (35-104); Anion Gap 11 (5-15); BUN 18 mg/dL (4-19); BUN/Creat Ratio 16.9 RATIO (10-20); Calcium,Total 9.6 mg/dL (7.6-11.0); Carbon Dioxide 24.2 mmol/L (21.0-32.0); Chloride 105 mmol/L (98-108); Estimated Creatinine Clearance 49.48 ml/min (50-250); Globulin 3.9 g/dL (2.2-4.2); Glucose 145 mg/dL (70-99); Potassium 4.6 mmol/L (3.3-5.1)
--- NOTE | 2024-12-25 15:21 | CT_ITS ---
PROCEDURE: CTA CHEST W/ CONTRAST 12/25/2024 REASON FOR EXAM: ASSESS FOR PE TECHNIQUE: CTA CHEST W/ CONTRAST Multiplanar Sagittal and Coronal images were obtained. CONTRAST: Isovue 370 VOLUME: 100 mL One or more dose reduction techniques were used (e.g., Automated exposure control, adjustment of the mA and/or kV according to patient size, use of iterative reconstruction technique). RADIATION DOSE SUMMARY: CTDlvol: 9.50, 15.77 mGy DLP: 505.49 mGycm COMPARISON: None. FINDINGS: PULMONARY ARTERIES There is no intraluminal filling defect suspicious for PE. AORTA No thoracic aortic aneurysm or dissection. Scattered calcified atherosclerosis. LUNGS No focal airspace consolidation. No pulmonary mass. Multiple pulmonary nodules bilaterally, the largest is 5.4 mm in the right middle lobe (Se: 2, Im: 103). Left upper lobe calcified granuloma. Areas of minimal atelectasis/scarring bilaterally. PLEURAL SPACES No pleural effusion. No pneumothorax. HEART No cardiomegaly. No significant pericardial effusion. Multivessel coronary artery, aortic valve and mitral anulus calcification. MEDIASTINUM/HILUM No significant lymphadenopathy. Few small mediastinal lymph nodes. CHEST WALL The chest wall is unremarkable. BONES No focal osseous abnormality or acute fracture. The spine demonstrates confluent syndesmophytosis, consistent with ankylosing spondylitis. Partially imaged ventral fusion hardware at C6 and C7. UPPER ABDOMEN Small hiatal hernia. Prior cholecystectomy. Calcified liver and splenic granulomas. Atrophy of the pancreatic parenchyma. CT/CTA Chest W/WO Contrast IMPRESSION: 1. No evidence of pulmonary embolus. 2. Pulmonary nodules bilaterally, that are less than 6.0 mm in size. Rickeyin g to the 2017 Fleischner criteria, if the patient is low risk, no routine follow-up is recommended. If the patient is high risk, an optional CT at 12 months is recommended. Reading Location: [id number]
[2024-12-25 15:24] LABS: Magnesium 1.9 mg/dL (1.5-2.2); Troponin T High Sensitivity 10 ng/L (<=14)
[2024-12-25 15:24] LABS: Color, Urine Yellow (Yellow); Glucose, Dipstick Normal (Normal); Ketone-Dipstick Negative (Negative); Leukocyte Esterase-Dipstick Negative /ul (Negative); Mucous, Urine 0 SEEN /hpf (<or=2+); Nitrite-Dipstick Negative (Negative); Occult Blood-Urine 50 /ul (Negative); Protein-Dipstick 15 mg/dl (Negative); Specific Gravity, Urine 1.015 (1.002-1.030); Urine Bilirubin Dipstick Negative (Negative)
[2024-12-25 16:36] LABS: Troponin T High Sens 2 HR 9 ng/L (<=14)
[2024-12-25 17:50] LABS: Red Blood Cells-Urine 0-5 SEEN /hpf (0-5); Squamous Epithelial Cells - UA 5-10 SEEN /hpf (5-10)
--- NOTE | 2024-12-25 18:54 | ED.RN ---
PT. HIGHLY ENCOURAGED TO ATTEMPT TO WALK AND PT. CONTINUOUSLY STATES SHE WILL PROBABLY NOT BE ABLE TO AND THAT i AM JUST TOO DIZZY. THIS RN AND MEDIC GOT PT. TO SIT AT SIDE OF BED AND JUST TRY TO STAY SITTING UP FOR A COUPLE MINUTES. PT. SAT UP FOR APPROX 10 SECONDS THEN LAID HER UPPER HALF BACK IN BED AND STATES SHE IS UNABLE TO WALK. NOTIFIED.
--- NOTE | 2024-12-25 19:20 | CASEMGMT ---
Care Management Face to Face with patient for initial transition planning/care coordination assessment in the ED.? This keno writer introduced self and role at [facility]. Patient alert and oriented. Patient willing to participate in assessment and is able to answer all questions appropriately.? Care providers, pharmacy, and demographics verified. Admitting Diagnosis: ?General illness Other diagnosis history: ?DM2, HTN, HLD, CKD, CAD PCP: ?David Specialists: Elliot Velasco Pharmacy: [facility] Insurance: ?[facility] Prescription Benefit: ?yes Living Will/HPOA: yes, daughter listed as agent according to patient LNOK: ?daughter Living Arrangements: ?Lives with daughter, RONI, and granddaughter in a one story house.? Patient reports to being independent with ADLs until this morning.? Transportation: ?patient drives DME: ?walker, grab bars, shower bench, blood pressure cuff HHC: ?currently receiving PT, does not know company name SNF/Rehab: ?none Community Resources: ?none Behavioral Health History: ?none Patient goals: Discharge goals uncertain at this time. Disposition Plan: admission to acute; RN CM/SW to follow for discharge planning needs that may arise. Zee Alford, UNIT MANAGER, RETIREMENT OFFICER
--- NOTE | 2024-12-25 19:23 | PCM.HP.STD ---
HPI - General General Date of Admission: 12/25/24 Date of Service: 12/25/24 Chief Complaint: Debility, weakness, nausea. HPI Narrative The patient is an 79 y/o F w/ PMHx: Former tobacco use, Depression, Allergic rhinitis, Obesity, Chronic pain syndrome, Chronic normocytic anemia/Fe deficiency anemia, HTN, Diabetes mellitus type II with chronic neuropathy, GERD, CKD stage IIIb, Nonobstructive CAD, Chronic LBBB who presents to the [facility] ED on 12/25/2024 with history of generalized weakness as well as nausea with recent left total knee replacement in September noting that she is been doing well with therapy with no issues with the knee however she woke on morning on day of presentation with specifically nausea and weakness with no emesis with subjective chills in addition to eventually reported several day history of loose stools and lower abdominal discomfort and a very transient episode of lightheadedness that resolved with no fevers or any URI type symptoms prompting eventual ED evaluation to be cautious. In the ED the left knee incision is healed and well-appearing with no evidence of any erythema, edema or increased warmth. Patient denies any increased pain or debilities to left knee. She did not initially report this to anyone but upon further evaluation in the ED she was noted to have bilateral primarily lower quadrant discomfort with palpation and notes it started on day of presentation in addition to reported history of several days of loose stools with last stool prior to ED arrival and no diarrhea since presentation. In the emergency room patient has noted hypoxia specifically when she falls asleep but when she is up and alert this does not seem to be present. She denies any sleep apnea history and denies having oxygen supplementation at home. Patient reports the abdominal pain is primarily with palpation of the abdomen otherwise no pain baseline. She notes the pain is sharp and severe with palpation 7-10 out of 10 but weakly subsides with removal of palpation. Workup in the ED included T97.5, heart rate 170/78, respiratory rate 26, 92% on room air however desaturating down to 83% on room air with most recent repeat vitals T98.6, heart rate 65, BP 134/58, respiratory rate 20, 97% on room air, CBC with WC 9.0, hemoglobin 12.4, MCV 89.4, platelet 175 without shift, CMP with BUN/creat 18/1.06, GFR 53, glucose 145, magnesium 1.9, hepatic profile with AST 37 otherwise unremarkable, initial troponin 10 with repeat delta 9, lipase 24, urinalysis unremarkable, chest x-ray with no acute cardiopulmonary findings, CTA chest with no evidence of pulmonary emboli, pulmonary nodules bilaterally less than 6 mm in size with recommended follow-up CT outpatient, EKG with sinus rhythm with chronic left bundle branch block unchanged from previous with no acute evidence of ischemia. In the ED patient administered 1 L normal saline, Zofran 4 mg IV x 1, meclizine 25 mg p.o. x 1. [facility] Medical History Wears dentures Wears glasses Post-menopausal Arthritis History of renal disease Anemia Gastric reflux Non-smoker Asthma History of pain when walking History of Holter monitoring History of stress test Cardiology follow-up encounter Atherosclerotic heart disease of resighini coronary artery without angina pectoris Fracture of femoral neck, right, closed Fecal impaction Chest pain Opioid dependence Disease of stomach and duodenum 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 Hyperlipidemia Diabetic polyneuropathy Chronic pain Depression Diabetes mellitus Chronic kidney disease, stage 3b Gastroesophageal reflux disease Coronary artery disease Hypertension Hyperkalemia Debility Hypertension Home Medications ?Medication ?Instructions ?Recorded ?Last Taken ?Type isosorbide mononitrate 30 mg 1 tab PO DAILY heart 11/05/21 12/25/24 History tablet,extended release 24 hr omeprazole 40 mg capsule,delayed 1 cap PO BID reflux 11/05/21 12/25/24 History release citalopram 10 mg tablet (Celexa) 10 mg PO DAILY depression 11/09/21 12/24/24 History carvedilol 6.25 mg tablet 6.25 mg PO BID BP 07/01/22 12/25/24 History insulin glargine U-300 conc 300 60 unit subcut QHS Diabetes 07/19/22 12/24/24 History unit/mL (3 mL) subcutaneous pen (Toujeo Max U-300 SoloStar) insulin lispro 100 unit/mL 5 - 10 unit subcut TID Diabetes 08/18/23 01/24/24 16:10 History subcutaneous pen nitroglycerin 0.4 mg sublingual 0.4 mg sublingual Q5M PRN chest 08/18/23 Unknown History tablet pain cetirizine 10 mg capsule (Zyrtec) 10 mg PO DAILY 01/10/24 12/25/24 History aspirin 81 mg tablet,delayed 81 mg PO BREAKFAST #0 tabs 02/03/24 12/24/24 Rx release magnesium chloride 71.5 mg 71.5 - 143 mg PO QHS Constipation 10/11/24 12/24/24 History (magnesium chloride) tablet,delayed release (Slow-Mag) acetaminophen 500 mg tablet 1,000 mg (2 x 500 mg) PO Q8 #0 tabs 11/12/24 Unknown Rx lidocaine 5 % topical patch 1 patch topical DAILY 30 days #30 11/12/24 Unknown Rx ea oxycodone 5 mg tablet 5 mg PO Q4H PRN PRN Pain Score 11/12/24 Unknown Rx 1-10 Or Pre Pt/Ot 7 days #42 tabs oxycodone 5 mg tablet 5 mg PO Q4H PRN pain 7 days #42 11/12/24 Unknown Rx tabs pregabalin 75 mg capsule 150 mg (2 x 75 mg) PO TID #0 caps 11/12/24 Unknown Rx Allergy/AdvReac Type Severity Reaction Status Date / Time inge Allergy Intermediate Anaphylaxis Verified 12/25/24 13:45 tetanus and diphtheria Allergy Intermediate Syncope Verified 12/25/24 13:45 toxoids codeine Allergy Other Verified 12/25/24 13:45 metformin Allergy Hives Verified 12/25/24 13:45 [id number] Reductase Allergy Other Verified 12/25/24 13:45 Inhibitor Sulfa (Sulfonamide Allergy Other Verified 12/25/24 13:45 Antibiotics) Family History Mother Hypertension Cancer other (Patient does not know her father or paternal family history.) Surgical History (Updated 12/25/24 @ 20:[address] Miriam Holland MD) History of total left knee replacement H/O knee surgery History of total right hip arthroplasty History of tooth extraction History of hysterectomy H/O cervical spine surgery History of appendectomy History of cataract surgery Social History household members: family Smoking Status: Former smoker alcohol intake: never substance use type: does not use caffeine: Yes Type: coffee Number of servings: 1 ROS ROS Narrative Admission Review of Systems: CONSTITUTIONAL: No weight loss, fever, + chills, weakness or fatigue. HEENT: Eyes: No visual loss, blurred vision, double vision or yellow sclerae. Ears, Nose, Throat: No hearing loss, sneezing, congestion, runny nose or sore throat. SKIN: No rash or itching, lesions, wounds. CARDIOVASCULAR: No chest pain, chest pressure or chest discomfort, palpitations, edema, orthopnea, syncopal events. RESPIRATORY: No shortness of breath, cough or sputum, wheezing, hemoptysis. GASTROINTESTINAL: + anorexia, nausea without vomiting, diarrhea, abdominal pain. No melena, BRBPR. GENITOURINARY: No dysuria, frequency, urgency or retention. NEUROLOGICAL: + Transient dizziness/lightheadedness. No headache, syncope, paralysis, ataxia, numbness or tingling in the extremities, focal weakness, change in bowel or bladder control, seizure. MUSCULOSKELETAL: + muscle, back pain, joint pain or stiffness. HEMATOLOGIC: No anemia, bleeding or bruising. LYMPHATICS: No enlarged nodes. No history of splenectomy. PSYCHIATRIC: + History of depression. ENDOCRINOLOGIC: No reports of sweating, cold or heat intolerance. No polyuria or polydipsia. ALLERGIES: + History of hives, anaphylaxis. Vital Signs Vital Signs Vital Signs: 12/25/24 13:41 12/25/24 13:51 12/25/24 14:36 Temperature 97.5 F L Temperature Source Oral Pulse Rate Respiratory Rate 26 H Respiratory Pattern Normal Blood Pressure 170/78 H Blood Pressure Mean 108 Pulse Ox 92 83 Oxygen Delivery Method Room Air Room Air 12/25/24 14:38 12/25/24 15:41 12/25/24 16:02 Temperature Temperature Source Pulse Rate 78 Respiratory Rate 19 H Respiratory Pattern Blood Pressure 164/83 H Blood Pressure Mean 110 Pulse Ox 83 95 76 Oxygen Delivery Method Room Air Room Air Room Air 12/25/24 16:02 12/25/24 17:00 12/25/24 17:46 Temperature 98.6 F Temperature Source Pulse Rate 69 71 Respiratory Rate 20 H 16 Respiratory Pattern Blood Pressure 113/71 155/89 H Blood Pressure Mean 85 111 Pulse Ox 81 99 96 Oxygen Delivery Method Room Air Room Air 12/25/24 19:00 Temperature Temperature Source Pulse Rate 65 Respiratory Rate 20 H Respiratory Pattern Blood Pressure 134/58 H Blood Pressure Mean 83 Pulse Ox 97 Oxygen Delivery Method Room Air Weight Weight: 219 lb 9.286 oz Body Mass Index (BMI) 36.5 Physical Exam Narrative Physical Examination: General: Awake, alert, oriented x 3 and cooperative, initially laying in the ED bed no acute distress however during evaluation with lower abdominal palpation significant pain elicited with voluntary guarding. Skin: Normal color, normal turgor, no icterus, no cyanosis except occasional stage ecchymoses, abrasion. HEENT: AT/NC, EOMI, PERRLA, moderately dry MM, no carotid bruits or JVD noted. Lungs: CTA bilaterally, moderate effort, mild decrease BL bases, no rales, ronchi or wheezing. Heart: Regular rate and rhythm; no gallop, rub audible. Abdomen: Soft, obese, significant bilateral lower quadrant tenderness to palpation with voluntary guarding, hypoactive bowel sounds, no obvious distention or HSM although pain makes evaluation difficult. Extremities: No cyanosis, no clubbing, mild ankle not markedly pitting edema, status post left total knee replacement with no obvious erythema, well-healing surgical incision. Neurological: Patient awake, alert, oriented as noted, cognitive function intact; pupils equally reactive to light and accommodation, cranial nerves grossly normal, moving all 4 extremities, no focal deficits, strength moderately to severely globally decreased Psychiatric: Affect appears fatigued although pain significantly evident with palpation of the lower abdomen, no acute evidence of depressive or anxiety feelings but does have underlying history. Results Lab / Micro Data 12/25/24 13:50 12/25/24 13:50 Labs: Laboratory Results - last 24 hr 12/25/24 13:50: WBC 9.0, RBC 4.26, Hgb 12.4, Hct 38.1, MCV 89.4, MCH 29.1, MCHC 32.5, RDW Std Deviation 48.2 H, RDW Coeff of Sarah 14.8 H, Plt Count 175, MPV 11.2, Immature Gran % (Auto) 0.600, Neut % (Auto) 65.1, Lymph % (Auto) 24.9, Hardin % (Auto) 6.8, Eos % (Auto) 1.9, Baso % (Auto) 0.7, Absolute Neuts (auto) 5.9, Absolute Lymphs (auto) 2.24, Nucleated RBC % 0, Sodium 140, Potassium 4.6, Chloride 105, Carbon Dioxide 24.2, Anion Gap 11, BUN 18, Creatinine 1.06, Estim Creat Clear Calc 49.48 L, Est GFR (MDRD) Non-Af 53 L, BUN/Creatinine Ratio 16.9, Glucose 145 H, Calcium 9.6, Magnesium 1.9, Total Bilirubin 0.35, AST 37 H, ALT 22, Alkaline Phosphatase 104, Troponin T High Sens 10, Total Protein 7.7, Albumin 3.9, Globulin 3.9, Albumin/Globulin Ratio 1.0, Lipase 24 12/25/24 15:20: Urine Color Yellow, Urine Clarity Clear, Urine pH 6.0, Ur Specific [place]olt 1.015, Urine Protein 15 H, Urine Glucose (UA) Normal, Urine Ketones Negative, Urine Occult Blood 50 H, Urine Nitrite Negative, Urine Bilirubin Negative, Urine Urobilinogen Normal, Ur Leukocyte Esterase Negative, Urine RBC 0-5 SEEN, Urine WBC 0-5 SEEN, Ur Squamous Epith Cells 5-10 SEEN, Urine Bacteria 0 SEEN, Hyaline Casts 0-5 SEEN, Urine Mucus 0 SEEN 12/25/24 15:57: Troponin T Hi Sens 2 Hr 9 Micro: Microbiology 12/25/24 14:22 Mucosa - Nose SARS-CoV-2, Influenza & RSV (PCR) - Final Imaging Radiology Impression Chest X-Ray 12/25/24 14:40 IMPRESSION: NO ACUTE FINDINGS. Reading Location: [facility] Chest CTA 12/25/24 15:21 IMPRESSION: 1. No evidence of pulmonary embolus. 2. Pulmonary nodules bilaterally, that are less than 6.0 mm in size. According to the 2017 Fleischner criteria, if the patient is low risk, no routine follow-up is recommended. If the patient is high risk, an optional CT at 12 months is recommended. Reading Location: [id number] Assessment & Plan Assessment/Plan (1) Adult failure to thrive: PLAN: Plan The patient is an 79 y/o F w/ PMHx: Former tobacco use, Depression, Allergic rhinitis, Obesity, Chronic pain syndrome, Chronic normocytic anemia/Fe deficiency anemia, HTN, Diabetes mellitus type II with chronic neuropathy, GERD, CKD stage IIIb, Nonobstructive CAD, Chronic LBBB who presents to the [facility] ED on 12/25/2024 with history of generalized weakness as well as nausea with recent left total knee replacement in September noting that she is been doing well with therapy with no issues with the knee however she woke on morning on day of presentation with specifically nausea and weakness with no emesis with subjective chills in addition to eventually reported several day history of loose stools and lower abdominal discomfort and a very transient episode of lightheadedness that resolved with no fevers or any URI type symptoms prompting eventual ED evaluation to be cautious. #1. Generalized weakness, debility, lower abdominal discomfort as well as diarrhea, adult failure to thrive: Unclear exact etiology but potentially related with her abdominal discomfort and diarrhea, given debility will admit to MedSurg, maintain on fall precautions, initially prior to discussion with patient procalcitonin/ESR/CRP, full respiratory viral panel requested and pending but given her reported abdominal lower discomfort and pain with palpation CT abdomen and pelvis with contrast requested in addition to C. difficile and enteric pathogen, as noted given likely underlying PABLO will plan trending pulse oximeter however will need follow-up outpatient at discharge, maintain on fall precautions, PT/OT/case medicine consulted for discharge planning. #2. Suspected underlying PABLO with noted hypoxia when falling asleep in the ED: Patient with obesity and significant underlying health comorbidities noted to desaturate in the ED specifically while sleeping only, likely has underlying sleep apnea and will need outpatient assessment, will initiate trending pulse oximeter while hospitalized. #3. Incidentally noted pulmonary nodules: CT of the chest with no evidence of PE however there was noted pulmonary nodules bilaterally less than 6 mm in size, recommend follow-up with PCP and repeat CT outpatient once appropriate. #4. Chronic pain syndrome/OA status post recent left total knee replacement: Will continue patient daily lidocaine patch, low-dose. And oxycodone regimen, encourage ambulation and offloading, PT/OT/case management consulted for discharge planning. #5. Nonobstructive CAD: Will continue patient home aspirin, Coreg, not on statin therapy nor MARIA DEL ROSARIO inhibitor/ARB with underlying CKD. #6. Hypertension: Continue home regimen including isosorbide, Coreg with hold parameters as needed, PRN hydralazine. #7. Diabetes mellitus type II with hyperglycemia: Will continue home insulin regimen, ADA diet, accu checks w/ ISS, continue patient home pregabalin regimen. #8. Chronic Kidney Disease Stage IIIb per previous chart reporting: Admission BUN/Cr 18/1.06, GFR 53, baseline renal function primarily 1.0-1.2, repeat BMP in AM. #9. Chronic normocytic anemia/iron deficiency anemia: Admission hemoglobin 12.4, MCV 89.4, baseline hemoglobin 11-12, stable, continue to trend. Per current medication list review not on iron but clarified to be certain. #10. Obesity: Weight loss and lifestyle changes encouraged. #11. Depression: Will continue patient home Celexa regimen. #12. Former tobacco use: Encourage continued tobacco cessation. #13. Allergic rhinitis: Will continue patient on cetirizine regimen. #14. GERD: Will continue patient on PPI. #15. DVT prophylaxis: Lovenox. #16. CODE status: Patient HECTOR is her daughter and granddaughter and living will is currently in place. Discussed CODE status at length including difference between FULL code, DNR-CCA and DNR-CC status. Following discussions about the differences in these status, requested Full Code status. Advanced Care Planning Face to Face Time: 16 minutes. Charges/Coding Visit Charges Inpatient E&M: 14349 Init Hosp L3 Procedures Hospitalists Procedures: 99271 Advncd Care Plan 30 Min
--- OUTSIDE RECORDS SUMMARY | 2024-12-25 19:57 | XMS RPT_ITS ---
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 Name Role Phone RICKI, BRYSON CHI Primary Care Unavailable VRABEC, NASH COLE Attending Unavailable RICKI, BRYSON CHI Primary Care Unavailable VRABEC, NASH COLE Attending Unavailable RICKI, BRYSON CHI Primary Care Unavailable VRABEC, NASH COLE Attending Unavailable RICKI, BRYSON CHI Primary Care Unavailable VRABEC, NASH COLE Attending Unavailable RICKI, BRYSON CHI Primary Care Unavailable RICKI, BRYSON [facility]I Primary Care Unavailable VRABEC, NASH COLE Referring Unavailable RICKI, BRYSON CHI Primary Care Unavailable RICKI, BRYSON [facility]I Primary Care Unavailable VRABEC, NASH COLE Attending Unavailable VRABEC, NASH COLE Attending Unavailable RICKI, BRYSON CHI Primary Care Unavailable RICKI, BRYSON [facility]I Primary Care Unavailable VRABEC, NASH COLE Referring Unavailable VRABEC, NASH COLE Admitting Unavailable VRABEC, NASH COLE Attending Unavailable VRABEC, NASH COLE Referring Unavailable RICKI, BRYSON CHI Primary Care Unavailable RICKI, BRYSON CHI Primary Care Unavailable GURPREET RODRIGES Unavailable VRABEC, NASH COLE Referring Unavailable VRABEC, NASH COLE Admitting Unavailable FRANKLIN COLIN Attending Unavailab le PROBLEMS DATE TYPE CONDITION / CODE ATTENDING STATUS ANGEL LUIS E 11/30/2024 Active Status post tota l left knee replacement / Z96.652(ICD-10) NASH MANZANARES Active [facility] 10/24/2024 Active Other chronic pa in / G89.29(ICD-10) FRANKLIN COLIN Active [facility] 10/18/2024 Active Preop examinatio n / Z01.818(ICD-10) NA Active [facility] 10/18/2024 Active Primary osteoart hritis of left knee / M17.12(ICD-10) NA Active [facility] 12/30/2023 Active Tobacco abuse / Z72.0(ICD-10) [facility] 12/30/2023 Active PABLO (obstructive sleep apnea) / G47.33(ICD-10) [facility] 12/30/2023 Active Class 1 obesity due to excess calories with body mass index (BMI) of 34.0 to 34.9 in adult, unspecified whether serious comorbidity present / E66.811(ICD-10) [facility] 12/30/2023 Active Class 1 obesity due to excess calories with body mass index (BMI) of 34.0 to 34.9 in adult, unspecified whether serious comorbidity present / E66.09(ICD-10) [facility] 12/30/2023 Active Class 1 obesity due to excess calories with body mass index (BMI) of 34.0 to 34.9 in adult, unspecified whether serious comorbidity present / Z68.34(ICD-10) [facility] 12/30/2023 Active Arteriosclerosis of coronary artery / I25.10(ICD-10) [facility] 12/30/2023 Active Primary hyperten arti / I10(ICD-10) [facility] 12/30/2023 Active Hyperlipidemia, unspecified hyperlipidemia type / E78.5(ICD-10) [facility] 12/30/2023 Active Gastroesophageal reflux disease, unspecified whether esophagitis present / K21.9(ICD-10) [facility] 12/30/2023 Active Stage 3b chronic kidney disease (HCC) / N18.32(ICD-10) [facility] 12/30/2023 Active Type 2 diabetes mellitus with other specified complication, with long-term current use of insulin (HCC) / E11.69(ICD-10) [facility] 12/30/2023 Active Type 2 diabetes mellitus with other specified complication, with long-term current use of insulin (HCC) / Z79.4(ICD-10) [facility] 12/30/2023 Active Anemia, unspecif ied type / D64.9(ICD-10) [facility] 01/19/2024 Active Status post tota l hip replacement, right / Z96.641(ICD-10) NASH MANZANARES Active [facility] 03/30/2024 Active Acquired valgus deformity knee, left / M21.062(ICD-10) NASH MANZANARES [facility] 03/30/2024 Active Degeneration of intervertebral disc of lumbar region with discogenic back pain / M51.360(ICD-10) NASH MANZANARES Active [facility] 01/13/2024 Active Arthritis of rig ht hip / M16.11(ICD-10) [facility] 01/13/2024 Active Intertrochanteri c fracture of right hip, sequela / S72.141S(ICD-10) NASH MANZANARES [facility] 01/13/2024 Active Osteoporosis wit h current pathological fracture, unspecified osteoporosis type, sequela / M80.00XS(ICD-10) NASH MANZANARES DOUGLAS [facility] 12/30/2023 Active Primary osteoart hritis of right hip / M16.11(ICD-10) NA [facility] 12/30/2023 Active Pre-op exam / Z01.818(ICD-10) NA Active [facility] PROCEDURES No Procedure Records Found RESULTS PROGRESS Observed: 12/01/2024 1:15 PM Status: COMPLETED Source: [facility] HNO ID: [id number] Author: NASH MANZANARES MD Service: ? Author Type: Physician Type: Progress Notes Filed: 12/01/2024 13:19 Note Text: X-ray Interpretation: We ordered, obtained and reviewed an AP, lateral, and sunrise radiograph for follow-up of a total left knee arthroplasty. They show a NIURKA left total knee in good position without loosening or complication. Impression: Stable postop follow up left total knee. Audra Archer comes in for 6-week follow-up of her left total knee. Has been home from rehab now for 2 weeks. Getting home therapy. Overall doing well. Has remained off her narcotic patch and Lyrica. Is struggling with her neuropathic and fibromyalgia pain. Wound is well-healed. She has 0 to 110 degrees range of motion. No calf pain or distal edema. At this point I encouraged her to continue with her therapy. Discussed further pain management with her PCP and pain management team although certainly given her postop course would recommend against any long-acting narcotics. Will see her back in 6 weeks time. GAV PROGRESS Observed: 11/30/2024 11:23 AM Status: COMPLETED Source: [facility] HNO ID: [id number] Author: JULIO BLUM LPN Service: ? Author Type: LICENSED NURSE Type: Progress Notes Filed: 12/01/2024 13:16 Note Text: The patient does not have any narcotic pain medication to dispose of at this visit. The patient states that they have Oxycodone IR 5mg at home but did not want a pouch at this time Julio Blum LPN 11:24 AM 11/30/2024 CNOV Observed: 11/30/2024 10:00 AM Status: COMPLETED Source: [facility] Office Visit (AGHWW1) AUDRA ARCHER ([id number]) 1945 F Date Time Provider Department 11/30/24 10:00 AM NASH MANZANARES AGHWW1 During your visit today, we recorded the following information about you: Julio Blum LPN 12/01/2024 1:16 PM Signed The patient does not have any narcotic pain medication to dispose of at this visit. The patient states that they have Oxycodone IR 5mg at home but did not want a pouch at this time Julio Blum LPN 11:24 AM 11/30/2024 Nash Manzanares MD 12/01/2024 1:19 PM Addendum X-ray Interpretation: We ordered, obtained and reviewed an AP, lateral, and sunrise radiograph for follow-up of a total left knee arthroplasty. They show a NIURKA left total knee in good position without loosening or complication. Impression: Stable postop follow up left total knee. Audra Archer comes in for 6-week follow-up of her left total knee. Has been home from rehab now for 2 weeks. Getting home therapy. Overall doing well. Has remained off her narcotic patch and Lyrica. Is struggling with her neuropathic and fibromyalgia pain. Wound is well-healed. She has 0 to 110 degrees range of motion. No calf pain or distal edema. At this point I encouraged her to continue with her therapy. Discussed further pain management with her PCP and pain management team although certainly given her postop course would recommend against any long-acting narcotics. Will see her back in 6 weeks time. GAV Allergies As of Date: 11/30/2024 Noted Allergy Reaction CIPROFLOXACIN 11/06/2021 8 - GI Upset 14 - Other: See Comments Comments: Convulsions METFORMIN 11/16/2021 4 - Hives 11 - Vomiting [id number] REDUCTASE INHIBIT*11/05/2021 4 - Hives SULFA (SULFONAMIDE ANTIBIOTICS) 11/05/2021 10 - Anaphylaxis 14 - Other: See Comments 16 - Unknown BACLOFEN 10/18/2024 14 - Other: See Comments Comments: Could not function CODEINE 11/05/2021 1 - Mental Status Change Comments: hallucinations NEOSPORIN (BENZALKONIUM CHLORIDE) 11/06/2021 2 - Rash KAMERON 10/11/2024 16 - Unknown TETANUS AND DIPHTHER. TOX (PF) 01/13/2024 14 - Other: See Comments Comments: Dizziness, syncope Date Reviewed: 11/30/2024 Reviewed by: Julio Blum LPN - Fully Assessed Reason for Visit: Post Op [174] Knee Pain [132] Primary Visit Diagnosis:Status post total left knee replacement [Z96.652] Order(s):XR KNEE POST OP 3V AP/LAT/MERCHANT LEFT [[id number]] Order #: [id number] Prescriptions as of 12/01/2024 - oxyCODONE IR (ROXICODONE) 5 mg immediate release tablet Take 5 mg by mouth every 6 hours as needed for pain. - lidocaine (SALONPAS) 4 % patch Apply 1 patch as directed once daily. - senna-docusate (SENNA-S) 8.6-50 mg per tablet Take 2 tablets by mouth two times a day. - pregabalin (LYRICA) 25 mg capsule Take 1 capsule by mouth three times a day for 21 days. - aspirin, enteric coated (ASPIRIN, ENTERIC COATED) 81 mg EC tablet Take 1 tablet by mouth two times a day for 21 days. - nystatin (MYCOSTATIN) powder APPLY EXTERNALLY TWICE DAILY - acetaminophen (TYLENOL) 325 mg tablet Take 2 tablets by mouth every 6 hours as needed for pain. - Magnesium Chloride 71.5 mg TbEC Take 1 tablet by mouth daily at bedtime. - LOW-DOSE ASPIRIN ORAL 81 mg once daily. - insulin lispro (HUMALOG U-100 INSULIN) 100 unit/mL injection Inject 5-10 Units subcutaneously three times a day before meals. Based in glucose level - TOUJEO MAX U-300 SOLOSTAR 300 unit/mL (3 mL) inpn Inject 60 Units subcutaneously daily at bedtime. - buprenorphine (BUTRANS) 20 mcg/hour transdermal patch 1 patch one time a week. Patch put on sat 10/20/24 - carvedilol (COREG) 6.25 mg tablet Take 6.25 mg by mouth two times a day with meals. - citalopram hydrobromide (CELEXA) 10 mg tablet Take 10 mg by mouth once daily. - isosorbide mononitrate ER (IMDUR) 30 mg 24 hr tablet Take 30 mg by mouth once daily. - nitroglycerin sublingual (NITROQUICK) 0.4 mg SL tablet Dissolve 0.4 mg under the tongue every 5 minutes as needed for chest pain. - omeprazole (PRILOSEC) 40 mg capsule Take 40 mg by mouth two times a day. Problem List As Of Date 11/30/2024 Noted Resolved Intertrochanteric fracture of right femur, clos*11/05/2021 Obesity, Class II, BMI 35-39.9 [E66.812] 11/06/2021 Anemia, unspecified [D64.9] 12/13/2022 Stage 3b chronic kidney disease (HCC) [N18.32] 12/30/2023 Hypertension [I10] 12/30/2023 Hyperlipidemia [E78.5] 06/07/2023 Gastroesophageal reflux disease [K21.9] 12/30/2023 Controlled type 2 diabetes mellitus without com*12/30/2023 Depressive disorder [F32.A] 12/30/2023 Pain in right hip [M25.551] 12/22/2022 Stage 3 chronic kidney disease (HCC) [N18.30] 11/08/2022 Arteriosclerosis of coronary artery [I25.10] 12/30/2023 Class 1 obesity due to excess calories with bod*12/30/2023 PABLO (obstructive sleep apnea) [G47.33] 12/30/2023 Tobacco abuse [Z72.0] 12/30/2023 Status post total hip replacement, right [Z96.6*01/19/2024 Primary osteoarthritis of left knee [M17.12] 10/18/2024 Preop examination [Z01.818] 10/18/2024 Status post total knee replacement, left [Z96.6*10/22/2024 Acute respiratory failure with hypoxia and hype*10/24/2024 10/30/2024 Acute metabolic encephalopathy [G93.41] 10/24/2024 10/30/2024 Somnolence [R40.0] 10/24/2024 10/30/2024 Other chronic pain [G89.29] 10/24/2024 Delirium [R41.0] 10/25/2024 10/30/2024 Incidental lung nodule, > 3mm and < 8mm [R91.1] 10/27/2024 Malnutrition of mild degree (HCC) [E44.1] 10/30/2024 Disposition: Return in about 6 weeks (around 01/11/2025). Follow-up and Disposition History for Encounter Date Provider Department Center 11/30/2024 [id number]-JTBGPXNASH MANZANARES*[facility]1 [facility] Letter Text Encounter Status:Closed by NASH MANZANARES on 12/01/24 CASE MANAGEM Observed: 10/30/2024 2:12 PM Status: COMPLETED Source: [facility] HNO ID: [id number] Author: YUMIKO RICHARDS RN Service: Care Management Author Type: Registered Nurse Type: Care Mgt Progress Note Filed: 10/30/2024 14:15 Note Text: CARE MANAGEMENT DISCHARGE NOTE SERVICE DATE: October 30, 2024 SERVICE TIME: 2:13 PM Admission Date: 10/22/2024 LOS: 7 days Discharge Arrangement Discharge Arrangement: Longterm Facility Services Arranged Medical Services: Other: See Comment Provider Name: Jhon HOUSTON Phone: see below Caregiver Assessment Caregiver is ready, willing and able to meet the patient's needs as recommended by the inter-professional team: Yes Name of Caregiver: [facility] [place] Transportation Arrangements Transportation Arrangements: Ambulance Transportation Agency and Phone #:: [facility] ( [facility] ) [phone] / [phone] Date of Trip: 10/30/24 Time of Trip: 1600 Type of Service: BLS Non-emergency Is Patient Medicaid Pending?: No Was transportation financial coverage discussed with family?: 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 Bryson Hernandez [phone] Other Caregiver Name/Phone: [facility] [phone] Additional Information: Discharge Information Row Name Admission (Current) from 10/22/2024 in [facility] has obtained auth and can accept today. 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 RN has dsch packet with which to send AVS and number for nurse to nurse report. [facility] SIGNATURE: Yumiko Richards RN PATIENT NAME: Audra Archer DATE: October 30, 2024 TIME: 2:12 PM CNDS Observed: 10/30/2024 1:45 PM Status: COMPLETED Source: [facility] HNO ID: [id number] Author: FRANKLIN COLIN MD Service: Hospital Medicine Author Type: Physician Type: Discharge Summary Filed: 10/30/2024 13:49 Note Text: DISCHARGE SUMMARY PATIENT NAME: Audra Archer ADMISSION DATE: 10/22/2024 DISCHARGE DATE: 10/30/2024 ATTENDING PHYSICIAN: Franklin Colin, * Code Status: Full Code Highest Readmission Risk Score: 11 The 30 day readmissions risk score is derived from an internally validated risk model which evaluates patient level characteristics, utilization history, medication orders and lab results up until the day of discharge. Patients with a score of 39 or above are considered highest risk for readmission. Specific patient level drivers will be listed at the bottom of the summary. CONSULTING TEAMS DURING HOSPITALIZATION: Pulmonology: Critical Care Surgery : Orthopaedics Pain management Treatment Team: Attending Provider: Franklin Colin MD Primary Service: ZAC HOFFMANN REASON FOR HOSPITALIZATION: Left hip replacement FINAL DIAGNOSIS: Active Hospital Problems Diagnosis POA Status post total knee replacement, left Yes Incidental lung nodule, > 3mm and < 8mm Unknown Other chronic pain Unknown Controlled type 2 diabetes mellitus without complication, with long-term current use of insulin (HCC) Yes Resolved Hospital Problems Diagnosis POA Delirium Unknown Acute respiratory failure with hypoxia and hypercapnia (HCC) Unknown Acute metabolic encephalopathy Unknown Somnolence Unknown OPERATIONS DURING HOSPITALIZATION: L hip replacement PROCEDURES DURING HOSPITALIZATION: No procedures performed HOSPITAL COURSE: 79 years old female with class-3 obesity, HTN, dld, IDDM2, CKD3, and PABLO who underwent L TKA on 10/22.Her course was c/b acute hypoxic/hypercapnic respiratory failure requiring NIPPV and MICU monitoring, as well as acute metabolic encephalopathy. She improved quickly and was back to RA with adequate mentation. Medications adjusted to decrease risk of recurrent AMS. She started working with PT and was recommended SNF Transitions of Care Critical Issues: SPECIALIST FOLLOW-UP: Orthopedics LABS AND PROCEDURES PENDING AT DISCHARGE: No pending results.INCIDENTAL OR ACTIONABLE FINDING (Last Refresh: 10/30/2024 1:45 PM) Test(s): CTA CHEST (NONGATED) W IVCON PE PATIENT CONDITION AT DISCHARGE: Stable DISCHARGE DISPOSITION: Longterm Facility Physical Exam Vitals and nursing note reviewed. Constitutional: General: She is not in acute distress. Appearance: Normal appearance. She is obese. She is not ill-appearing. HENT: Head: Normocephalic and atraumatic. Eyes: Pupils: Pupils are equal, round, and reactive to light. Cardiovascular: Rate and Rhythm: Normal rate and regular rhythm. Pulses: Normal pulses. Pulmonary: Effort: Pulmonary effort is normal. No respiratory distress. Abdominal: Palpations: Abdomen is soft. Tenderness: There is no abdominal tenderness. Musculoskeletal: Cervical back: Normal range of motion. Skin: General: Skin is warm and dry. Neurological: General: No focal deficit present. Mental Status: She is alert and oriented to person, place, and time. Psychiatric: Mood and Affect: Mood normal. Behavior: Behavior normal. INFORMATION PROVIDED TO PATIENT: Symptoms of an Infection to Watch for Include: Fever Swelling Increase in Redness Pus WOUND/SURGICAL SITE CARE: Wound/Surgical Site Care Apply ice packs as needed It is normal to have swelling, mild bruising, blood on the steri-strips, numbness and firmness around the incision Keep your dressing clean and dry Dressing is water resistant. Okay to shower. Do not saturate. No tub bath. Remove dressing on post op day #7, 10/29/2024. Once dressing removed okay to shower and wash with soap and water. No creams, lotions, ointments or peroxide. Leave open to air. Leave open to air After post operative day 7 Other: Mepilex daily X7 days Some bleeding from the wound/surgical site can be expected. If excessive, see a doctor at once Some bleeding from the wound/surgical site can be expected. If you soak a gauze bandage in one hour, see a doctor at once Steri strips can get wet. Let them fall off or remove in: 14 days Wash your hands frequently, especially before touching your incision, after using restroom and before eating Your incision has skin glue. It will peel off on its own. It can get wet Orders Placed This Encounter DRESSING CARE (SPECIFY) (VT,DC), Order Comments: Evaluate dressing daily. Silver impregnated dressing to remain on for 7 days Freq: Daily DIET: Resume your pre-hospital diet Diabetic ACTIVITY: Resume pre-hospital activity ALLERGIES Allergen Reactions Ciprofloxacin GI Upset, Other: See Comments Convulsions Metformin Hives, Vomiting Aohvhom-Prg-Qyv Red* Hives Sulfa (Sulfonamide * Anaphylaxis, Other: See Comments, Unknown Baclofen Other: See Comments Could not function Codeine Mental Status Change hallucinations Neosporin [Benzalko* Rash [place] Unknown Tetanus And Diphthe* Other: See Comments Dizziness, syncope DISCHARGE MEDICATION: Medication List PAUSE taking these medications * LOW-DOSE ASPIRIN ORAL Wait to take this until: November 14, 2024 You also have another medication with the same name that you may need to continue taking. * This list has 1 medication(s) that are the same as other medications prescribed for you. Read the directions carefully, and ask your doctor or other care provider to review them with you. START taking these medications lidocaine 4 % patch Commonly known as: SALONPAS Apply 1 patch as directed once daily. Start taking on: October 31, 2024 senna-docusate 8.6-50 mg per tablet Commonly known as: SENNA-S Take 2 tablets by mouth two times a day. CHANGE how you take these medications * aspirin, enteric coated 81 mg EC tablet Commonly known as: ASPIRIN, ENTERIC COATED Take 1 tablet by mouth two times a day for 21 days. What changed: Another medication with the same name was paused. Ask your nurse or doctor if you should take this medication. pregabalin 25 mg capsule Commonly known as: LYRICA Take 1 capsule by mouth three times a day for 21 days. What changed: medication strength how much to take * This list has 1 medication(s) that are the same as other medications prescribed for you. Read the directions carefully, and ask your doctor or other care provider to review them with you. CONTINUE taking these medications acetaminophen 325 mg tablet Commonly known as: TYLENOL Take 2 tablets by mouth every 6 hours as needed for pain. buprenorphine 20 mcg/hour transdermal patch Commonly known as: BUTRANS carvedilol 6.25 mg tablet Commonly known as: COREG CeleXA 10 mg tablet Generic drug: citalopram hydrobromide HumaLOG U-100 Insulin 100 unit/mL injection Generic drug: insulin lispro isosorbide mononitrate ER 30 mg 24 hr tablet Commonly known as: IMDUR Magnesium Chloride 71.5 mg Tbec nitroglycerin sublingual 0.4 mg SL tablet Commonly known as: NITROQUICK nystatin powder Commonly known as: MYCOSTATIN omeprazole 40 mg capsule Commonly known as: PriLOSEC TOUJEO MAX U-300 SOLOSTAR 300 unit/mL (3 mL) Inpn Generic drug: insulin glargine U-300 conc Where to Get Your Medications These medications were sent to [facility] [address] [place] [id number] [address] [facility] [phone] [address] [facility] [address] lidocaine 4 % patch pregabalin 25 mg capsule senna-docusate 8.6-50 mg per tablet FUTURE APPOINTMENTS: Follow Up with PCP: Bryson Hernandez MD Future Appointments Date Time Provider Department Center 11/16/2024 11:00 AM Nash Manzanares MD [id number] [facility] Follow Up Appointments Follow-up Appointment When: In 2 weeks Nash Manzanares MD [phone] [place] [address] [facility] [address] PCP Requested Referral Follow-up Appointment Patient s/p hip replacement and complicated hospital stay. When: In 3 weeks Bryson Hernandez Chi [phone] [facility] [address] [place] [address] [facility] [address] PCP Requested Referral The patient's risk for 30-day readmission is determined using the following contributing factors: Predictive Model Details 7% (Low) Factor Value Calculated 10/30/2024 05:22 -23% Admission Provider Speciality ORTHOPEDICS [facility] READMISSION RISK Model -12% Hospital Unit [facility] -11% [facility] -10% ED visits (365d) 0 8% Diagnosis Count 23 -7% Observations (365d) 0 -6% Admissions (90d) 1 -5% ED Encounter No -5% Admissions (60d) 1 -4% No Shows (365d) 0 Plan of care discussed with Provider, RN, Patient I have performed the ewgu-gq-ehcp and relevant services for a total of < 30 minutes. SIGNATURE: Franklin Locke MD DATE: October 30, 2024 TIME: 1:45 PM NUTRITION Observed: 10/30/2024 12:34 PM Status: COMPLETED Source: [facility] HNO ID: [id number] Author: PENELOPE QUARLES RD Service: Nutrition Therapy Author Type: Registered Dietitian Type: Nutrition Filed: 10/30/2024 15:01 Note Text: INITIAL ASSESSMENT SERVICE DATE: 10/30/2024 SERVICE TIME: Start Time: 1234 Nutrition Assessment: Recommended Malnutrition Diagnosis: Mild Protein-Calorie Malnutrition In the context of: Acute Illness or Injury Based on: Insufficient Energy Intake Nutrition Diagnosis: Problem: Suboptimal protein/energy intake Related to: Acute illness As evidenced by: Food/nutrition related history, Patient/family self-report, Intake records Care Plan: Continue current diet Supplements: Mighty Shake No Sugar Added Monitor and Evaluation: Meet greater than 75% of estimated needs, Monitor bowel function Discharge Recommendations: Diet, Oral Supplements Diet: carb controlled diet Oral Supplements: diabetic friendly supplement/snack of choice 1-2x/day until wound heals. HPI: 79 year old female admitted for Primary osteoarthritis of left knee [M17.12], POD#8 L knee replacement c/b respiratory failure and acute metabolic encephalopathy. Pt now at baseline, pending precert for SNF. Intake History: Nutrition Intake Prior to Admission: Greater than 75% estimated energy needs greater than or equal to 3 months Current Nutrition Intake: Less than 75% estimated energy needs Current Intake Over time: Greater than or equal to 7 days (Pt educated on importance of macy/protein for healing/strength + adverse effects when needs are not met. Planning for dc to SNF today, agreeable to ONS if remains here.) Dosing Weight: 56.7 kg (125 lb) Dosing Weight Type: [place] body weight Estimated kilocalorie needs: [id number] (post op status) Calorie Calculation Method: 25-35 kcals/kg Estimated protein needs (grams): 57-86 (GFR 54, adjust as able for post op status.) Grams protein determined by: 1.0 - 1.5 g/kg Diet Orders (From admission, onward) Start Ordered 10/26/24 0845 DIET CARBOHYDRATE CONTROLLED START NOW Question: Carbohydrate Control Answer: CONSISTENT CARBOHYDRATE 10/26/24 0842 Anthropometrics: Height: 165.1 cm (5' 5) Weight: 100.3 kg (221 lb 1.9 oz) Usual Weight: 95 kg (209 lb 7 oz) x 7 months prior. Usual Weight Obtained From: Chart Review Body mass index is 36.8 kg/m?. Weight change percentage over time: Documented weight of 100kg indicating wt gain x 7 months. Pt self reports stable weight. Weight Change: Weight gain Physical Exam: Subcutaneous fat loss: No Subcutaneous Fat Loss Muscle loss: No Muscle Loss Potential micronutrient deficiency: No deficiency identified Edema/Ascites: Lower extremities Lower Extremity: Non-pitting (LLE) GI Symptoms: None (edentulous and has dentures but prefers to eat without; tolerates regular diet. Constipated normally but relates to poor water intake (hates water).) Functional Status: Not related to malnutrition status Potential Signs of Inflammation: Chronic condition, Acute post-operative HTN, DM, CKD, PABLO Lines, Drains, and Airways None MNT Billing: $ Initial Assessment: 1 unit Time Spent (mins): 10 SIGNATURE: Penelope Quarles RD PATIENT NAME: Audra Archer DATE: October 30, 2024 TIME: 2:50 PM CASE MANAGEM Observed: 10/30/2024 9:53 AM Status: COMPLETED Source: [facility] HNO ID: [id number] Author: YUMIKO RICHARDS RN Service: Care Management Author Type: Registered Nurse Type: Care Mgt Progress Note Filed: 10/30/2024 09:54 Note Text: CARE MANAGEMENT PROGRESS NOTE SERVICE DATE: 10/30/2024 SERVICE TIME: 9:53 AM LOS: 7 days Needs Prior to Discharge: Accepting Facility, Precertification, Discharge Transportation Patient and dght as well RN and phys aware Awaiting confirmation of precert for [facility] and have 4 pm transport on for today. Pt is medically ready for dsch Spoke by phone to Colleen at [facility] this am. SIGNATURE: Yumiko Richards RN PATIENT NAME: Audra Archer DATE: October 30, 2024 TIME: 9:53 AM PROGRESS Observed: 10/30/2024 5:17 AM Status: COMPLETED Source: [facility] HNO ID: [id number] Author: SHASHANK MANZANARES DO Service: Orthopaedic Surgery Author Type: Resident Type: Progress Notes Filed: 10/30/2024 06:00 Note Text: ORTHOPAEDIC SURGERY DAILY PROGRESS NOTE Patient Name: Audra Archer Date of Evaluation: 10/30/2024 Admission Date: 10/22/2024 Time of Evaluation: 5:17 AM ASSESSMENT: 79 year old female POD # 8 s/p L TKA PLAN: -Pain control -Weight Bearing As Tolerated LLE -Dressing management - Mepilex X7 days -Reg diet -PT/OT -DVT ppx: Aspirin 81mg BID -D/C planning: Rehab at [facility] -Outpatient pulmonary follow up for PABLO and lung nodule mgmt -Follow up: With Dr. Manzanares in 10-14 days INTERVAL HPI: No acute events overnight recorded in chart. Awaiting SNF precert for jhon. Still waiting for bed on RNF. No new concerns. OBJECTIVE: BP 127/50 Pulse 79 Temp 36.6 ?C (97.9 ?F) Resp 19 Ht 165.1 cm (5' 5) Wt 101 kg (222 lb 10.6 oz) SpO2 99% BMI 37.05 kg/m? Intake/Output Summary (Last 24 hours) No intake/output data recorded. Exam: General: Pt is alert, resting in bed, no acute distress, cooperative throughout the exam and interview, answers questions appropriately Extremities: Left Lower Extremity: Surgical site no drainage and skin edges well approximated. SILT Galindo/Sa/SP/DP/T Motor intact DF/PF/EHL DP pulse palpable, foot warm, BCR toes Compartments soft, compressible. Tolerates passive stretch of digits. Labs: BMP: Sodium 138 10/29/2024 Potassium 4.0 10/28/2024 Chloride 99 10/29/2024 CO2 28 10/29/2024 BUN 21 10/29/2024 Creatinine 1.05 10/29/2024 Glucose 121 10/29/2024 CBC: WBC 7.43 10/29/2024 Hemoglobin 11.8 10/29/2024 Hematocrit 37.5 10/29/2024 Platelet Count 237 10/29/2024 COAGS: INR 1.0 11/06/2021 SED RATE/CRP: No results found for this basename: wsr:*,crp:* Imaging: No new orthopaedic imaging to review Hospital Course/Operations/Procedures: 10/22/2024 Procedure(s) with comments: ARTHROPLASTY REPLACE JOINT TOTAL KNEE - Error found in Charging summary - End event Phase II Discharge Criteria Met is not entered. This event determines the length for PACU PHASE 2. Shashank Manzanares DO, PGY-2 Resident, Orthopaedic Surgery Pager #: [phone] 10/30/2024 5:17 AM INPATIENT ATTENDING: Dr. Manzanares, Nash Cole MD, Elective High-Risk Geriatric Patient Vulnerabilities: Delirium Risk, Impaired Functional Status, and Impaired Mobility Diet: DIET CARBOHYDRATE CONTROLLED Recommendations: Cognition: No Cognitive Impairment bCAM Score (Calc): Positive Delirium Screen Confusion Assessment Method (CAM - ICU Score): Negative Geriatric Consult (Age over 85 or impaired cognition):Consult not needed Palliative Care/Hospice: Consult not required Rehab/Therapy: PT/OT Recommendations: PT: Recommended Discharge Disposition: Subacute/SNF OT: Recommended Discharge Disposition: Subacute/SNF Swallow: Swallow Screening Result - Step 2: PASSED Swallow Screen - Patient Able To Swallow 3 Ounce Cup of Water Without Exhibiting Signs Of Aspiration Speech Recommendations: Speech: Speech Diet: Nutrition: Consult not required Nutrition Recommendations: MST: Total MST Score (Calculated): 0 Quality Consultant: Pharmacy: Consult not needed Social Work: NA Anticipated Discharge Disposition: Longterm Facility THERAPY NT Observed: 10/29/2024 4:42 PM Status: COMPLETED Source: [facility] HNO ID: [id number] Author: ALEXANDREA GUILLORY PT Service: Physical Therapy Author Type: Physical Therapist Type: Therapy (PT/OT/Speech/Resp) Filed: 10/29/2024 16:46 Note Text: Physical Therapy Treatment Summary SERVICE DATE: 10/29/2024 SERVICE TIME: 1600 to 1630 ROOM: [place] [id number] PT 6 Clicks Score: 17 DISCHARGE RECOMMENDATIONS Subacute/SNF Recommended Discharge Disposition Comments: Patient currently functioning well below baseline and does not have assist during the day at home. recommend discharge to SNF to progress mobility prior to return home. Anticipate that patient will require daily (5x/wk) skilled therapy in a post-acute facility at the time of acute hospital discharge. Recommended Discharge Disposition Due to: Functional deficits requiring ongoing therapy service prior to discharge home. Recommended Discharge Equipment: No equipment needs anticipated ASSESSMENT Response to Therapy Interventions: Good Participation in Activities patient stated she did not want to sit in chair as chair is uncomfortable. she tolerated all mobility well, with decreased elvia. no LOB noted. Patient tolerates minimal ther ex due to pain. PRECAUTIONS Fall Risk, Weight Bearing Restrictions Left Lower Extremity Weight Bearing Status: WBAT CURRENT HOSPITAL COURSE presented for L TKA. Confusion note increased during PT session on tue10/25/23 and SpO2 in the 60% range. Rapid called and pt was adminiserred narcan. Transferred to CVICU for treatment. Pt continues with confusion. Relevant Past Medical History: R femur fx s/p fixation, CKD, DM, depression, PABLO, R [place], L knee OA HOME LIVING Patient Lives With: Family Assistance Available: Part-Time Entry To Home: Stairs, With Rail Number Of Stairs Into Home: 3 Number Of Stairs To Bed/Bath: 0 Tub/Shower Type: tub shower Laundry: family can complete Equipment Owned: Walker- Wheeled, Cane, Shower Chair, Grab Bars- Shower, Finish Mender PRIOR FUNCTIONAL LEVEL Required Assistance Assistance Required With: Shopping, Transportation ambulates with wh walker; family takes care of household tasks SUBJECTIVE Patient willing to participate in therapy session THERAPY DIAGNOSIS Reduced mobility-other TREATMENT INTERVENTIONS Therapeutic Exercise (33565), Therapeutic Activity (65505) Therapeutic Exercise (54320) Treatment Minutes: 8 Supine quad sets, glut sets x8 reps each with 3 sec hold. Attemped supine heel slides and patient unable to tolerate. At EOB completed L knee flexion with 15 sec hold x3. SAQ in sitting EOB x5. Limited tolerance to therex $ Therapeutic Exercise (94365) Billed Units: 1 unit Therapeutic Activity (22618) Treatment Minutes: 20 $ Therapeutic Activity (81740) Billed Units: 1 unit Sup to sit. Sat EOB x4 min, sit to stand, ambulation. Returned to sitting EOB. Requested commode. Bed to and from commode. EOB sit to sup. Repositioned. Timed Code Treatment (minutes): 28 Skilled Treatment Time (minutes): 28 TRAINING AND EDUCATION PROVIDED Benefits of In-Hospital Mobility, Assistive Device Use, Transfers THERAPEUTIC SKILLS USED Cues for Sequencing/Proper Technique for Activity, Movement Facilitation FUNCTIONAL STATUS mobility performed during session in bold, other mobility completed during prior session and may no longer be correct or appropriate to complete. Bed Mobility Supine To Sit: Contact Guard Assistance HOB elevated, CGA for safety and L LE control off EOB Sit to Supine: Moderate Assistance, Additional Information requires assist for B LEs Scooting: Minimal Assistance Transfers Sit To Stand: Minimal Assistance, Additional Information cues for safety, push up from bed. Stand To Sit: Minimal Assistance, Additional Information assist to position self properly in front of chair. Bed to Chair Gait Minimal Assistance, Additional Information decreased elvia. Gait Device: Wheeled Walker General Deviations/Observations: Antalgic gait Gait Distance (feet): 15' Gait Deviations Left Lower Extremity: Lacks full knee extension during terminal swing Stairs BALANCE Static Sitting Balance: Good Dynamic Sitting Balance: Good Static Standing Balance: Good Dynamic Standing Balance: Fair GOALS Patient will demonstrate progress with functional mobility to allow safe discharge to home with available support and/or physical assistance. Transfer Supine to/from Sit with: Supervision Transfer Sit to/from Stand with: Contact Guard Assistance Ambulate with: Contact Guard Assistance Distance: 20'x2 Device: Wheeled Walker Goal: x12 reps L TKA protocol exercises Rehab Potential: Good Good Rehab Potential Due To: Current objective clinical presentation Progress Toward Goals: Progressing slower than expected ACUTE CARE TREATMENT PLAN PT Frequency: Twice Daily Treatment Interventions: Education, Strengthening, Functional Mobility Training, Balance Training Plan for Next Visit: Continue per POC SIGNATURE: Alexandrea Guillory PT PATIENT NAME: Audra Archer DATE: October 29, 2024 TIME: 4:42 PM THERAPY NT Observed: 10/29/2024 2:24 PM Status: COMPLETED Source: [facility] HNO ID: [id number] Author: GURPREET IRAHETA OTR/Jovanny Service: Occupational Therapy Author Type: Occupational Therapist Type: Therapy (PT/OT/Speech/Resp) Filed: 10/29/2024 14:37 Note Text: Occupational Therapy Treatment Summary SERVICE DATE: 10/29/2024 SERVICE TIME: 1332 to 1355 ROOM: [id number] OT 6 Clicks Score: 15 DISCHARGE RECOMMENDATIONS Subacute/SNF Recommended Discharge Disposition Due to: Functional deficits requiring ongoing therapy service prior to discharge home., ADL impairment, Anticipated community discharge, Functional status decline, Requires multiple therapy disciplines Anticipate that patient will require daily (5x/wk) skilled therapy in a post-acute facility at the time of acute hospital discharge. ASSESSMENT Response to Therapy Interventions: Good Participation in Activities, Requires Additional Time to Complete Activities, Pain Patient with ongoing OT goals due to complicated hospital stay requiring transition to ICU. Faciltiated bed level ADLs to maximize indep with self care and maximize BUE strength. Provided setup assist for oral and facial hygiene. Provided minimal A and VCs to wash, dry and comb hair. Provided cues for redirection to activity during treatment. Provided moderate A for UB bathing and minimal A for UB dressing. Provided minimal A to apply lotion to neck/shoulders. Updated goals to reflect current functional status. Patient continues to function well below her baseline and is appropriate for SNF at discharge. PRECAUTIONS Bed/Chair Alarm, Fall Risk, Lines/Tubes/Drains, Total Knee Replacement, Weight Bearing Restrictions Left Lower Extremity Weight Bearing Status: WBAT CURRENT HOSPITAL COURSE presented for L TKA. Confusion note increased during PT session on tue10/25/23 and SpO2 in the 60% range. Rapid called and pt was adminiserred narcan. Transferred to CVICU for treatment. Pt continues with confusion. Relevant Past Medical History: R femur fx s/p fixation, CKD, DM, depression, PABLO, R [place], L knee OA HOME LIVING Patient Lives With: Family Assistance Available: Part-Time Entry To Home: Stairs, With Rail Number Of Stairs Into Home: 3 Number Of Stairs To Bed/Bath: 0 Tub/Shower Type: tub shower Laundry: family can complete Equipment Owned: Walker- Wheeled, Cane, Shower Chair, Grab Bars- Shower, Finish Mender PRIOR FUNCTIONAL LEVEL Required Assistance Assistance Required With: Shopping, Transportation ambulates with wh walker; family takes care of household tasks SUBJECTIVE Patient is agreeable to OT, just got back to bed, would like to complete bed level ADLs COGNITION Responsiveness: Alert, Awake Follows Commands: 2-step Commands 4AT Score: 0 (10/23/24) Delirium Positive/Negative: Negative (10/23/24) THERAPY DIAGNOSIS Decreased activities of daily living (ADL) TREATMENT INTERVENTIONS Self Chcf Management (60328) Timed Code Treatment (minutes): 23 Skilled Treatment Time (minutes): 23 Self Chcf Management (69984) Treatment Minutes: 23 $ Self Chcf Management (49192) Billed Units: 2 units TRAINING AND EDUCATION PROVIDED Discharge Planning, Expected Functional Level, Functional Mobility Involving ADLs, Grooming Tasks, Role of Occupational Therapy, Upper Extremity Dressing, Bed Mobility, Benefits of In-Hospital Mobility, Positioning, Precautions/Restrictions, Sitting Balance to Improve [place] with ADLs/Self-Care, Upper Extremity Bathing THERAPEUTIC SKILLS USED Activity Dosing, Cues for Sequencing/Proper Technique for Activity, Cuing Verbal, Physical Assist, Therapeutic Use of Self, Teach-Back for Education, Assessment of Tolerance Including Vitals Response to Activity FUNCTIONAL STATUS Activities of Daily Living Assist Level Additional Information Feeding Independent Grooming Moderate Assistance Bathing Upper Body Minimal Assistance Bathing Lower Body Maximal Assistance Dressing Upper Body Minimal Assistance Dressing Lower Body Maximal Assistance Toileting Moderate Assistance Mobility Assist Level Additional Information Bed Mobility Supine To Sit: Moderate Assistance Sit To Supine: Maximal Assistance Sit to Stand Minimal Assistance Stand to Sit Contact Guard Assistance Bed to Chair Toilet/Commode Minimal Assistance Shower Functional Mobility Contact Guard Assistance Functional Mobility Device: Wheeled Walker GOALS Grooming with: Set Up Upper Body Dressing with: Set Up Lower Body Bathing with: Minimal Assistance Lower Body Dressing with: Minimal Assistance Toilet Hygiene with: Contact Guard Assistance Toilet Transfer with: Contact Guard Assistance (BSC) Rehab Potential: Good Progress Toward Goals: Progressing slower than expected ACUTE CARE TREATMENT PLAN OT Frequency: 2 Times Per Week Treatment Interventions: Education, Self Care/Home Management, Functional Mobility Training, Balance Training, Energy Conservation Training SIGNATURE: Gurpreet Iraheta OTR/L PATIENT NAME: Audra Archer DATE: October 29, 2024 TIME: 2:24 PM PROGRESS Observed: 10/29/2024 1:37 PM Status: COMPLETED Source: [facility] HNO ID: [id number] Author: FRANKLIN COLIN MD Service: Hospital Medicine Author Type: Physician Type: Progress Notes Filed: 10/29/2024 13:44 Note Text: DEPARTMENT OF HOSPITAL MEDICINE PROGRESS NOTE SERVICE DATE: 10/29/2024 SERVICE TIME: 1:37 PM Hospital Medicine/Primary Attending: Franklin Locke MD NIGHT AND WEEKEND COVERAGE: [place] COVERAGE: From 7am - 7pm, please call 2 After 7pm, please call cross cover pager #[phone] Subjective INTERVAL HPI: Resting in her chair and watching TV. Feels well. Denies chest pain, sob, fever, chills, sweats. Appetite could be better. Having daily Bms. Eager to start therapy. MEDICATIONS: Reviewed Objective PHYSICAL EXAM: BP 118/43 Pulse 72 Temp (Src) 97.9 (Oral) Resp 20 Ht 5' 5 (1.65m) Wt 222 lb 10.6 oz (101.0kg) SpO2 94% BMI 37.05 kg/(m2). O2 Therapy: Room Air, Liters (Numeric Only): 2 Physical Exam Performed Physical Exam Vitals and nursing note reviewed. Constitutional: General: She is not in acute distress. Appearance: Normal appearance. She is obese. She is not ill-appearing. HENT: Head: Normocephalic and atraumatic. Eyes: Pupils: Pupils are equal, round, and reactive to light. Cardiovascular: Rate and Rhythm: Normal rate and regular rhythm. Pulses: Normal pulses. Pulmonary: Effort: Pulmonary effort is normal. No respiratory distress. Abdominal: Palpations: Abdomen is soft. Tenderness: There is no abdominal tenderness. Musculoskeletal: Cervical back: Normal range of motion. Skin: General: Skin is warm and dry. Neurological: General: No focal deficit present. Mental Status: She is alert and oriented to person, place, and time. Psychiatric: Mood and Affect: Mood normal. Behavior: Behavior normal. Lines, Drains, and Airways Line Duration Peripheral 10/24/[address] [facility] Short Right Forearm 22 Gauge 5 days Peripheral 10/26/[address] [facility] Right Forearm 20 Gauge 3 days Reviewed lines and needs to be continued: REASONS: Telemetry DATA: Diagnostic tests reviewed for today's visit: Most recent labs and imaging results. Assessment/Plan 79 years old female with class-3 obesity, HTN, dld, IDDM2, CKD3, and PABLO who underwent L TKA on 10/22.Her course was c/b acute hypoxic/hypercapnic respiratory failure requiring NIPPV and MICU monitoring, as well as acute metabolic encephalopathy. She is on RA currently and back to baseline mentation. # Acute hypoxic hypercapnic respiratory failure- resolved :: No evidence of PE or pneumonia on CT chest :: likely secondary to PABLO or atelectasis - Patient to continue breathing exercises - Continue supportive care # Acute encephalopathy/delirium due to hypercapnia with somnolence - resolved - delirium precautions - sleep cycle preservation - pain control - avoid constipation - early mobilization # PABLO, not on CPAP therapy - CPAP as tolerated # Status post left knee arthroplasty, POD 6 - Continue pain management - Postsurgical recommendation as per orthopedic team - PT/OT # CKD stage III, clinical monitoring # Hypertension- continue home regimen. # Incidental right middle lobe pulm nodule, will need outpatient follow-up # Chronic pain # Type 2 diabetes, on insulin therapy, clinical monitoring, iSS, hypoglycemia monitoring Medication and Non-Pharmacologic VTE Prophylaxis/Anticoagulants Anticoagulant AND Antiplatelet Medications (From admission, onward) Start Dose Route Frequency Last Action Ordered Stop 10/23/24 0900 aspirin, enteric coated 81 mg tab(s) (Surgical Risk Categories) 81 mg PO 2 TIMES DAILY Given, 10/29 0838 10/22/242009 -- 10/22/242014 activity - mobilize patient (mt,fl) 10/22/24 1930 pneumatic compression sleeve(s) ([place]) VTE Prophylaxis: VTE prophylaxis appropriate Disposition: To be determined Plan of care discussed with: Provider, RN, Patient SIGNATURE: Franklin Locke MD PATIENT NAME: Audra Archer DATE: October 29, 2024 TIME: 1:37 PM etx [id number] CASE MANAGEM Observed: 10/29/2024 10:57 AM Status: COMPLETED Source: [facility] HNO ID: [id number] Author: YUMIKO RICHARDS RN Service: Care Management Author Type: Registered Nurse Type: Care Mgt Progress Note Filed: 10/29/2024 10:59 Note Text: CARE MANAGEMENT PROGRESS NOTE SERVICE DATE: 10/29/2024 SERVICE TIME: 10:57 AM LOS: 6 days Needs Prior to Discharge: OT/PT Evaluation, Precertification, Discharge Transportation IMM Follow Up Copy Given: Yes Copy given to:: Patient Method: In Person (pt and dght verbalized understanding) Patient oriented x 3 this am. Up in chair Met with her and rounded in unit. Spoke with Ortho in unit as well. Call to dght vale Tuttle and updated both pt and dght agreeable to following [facility] plan. [facility]: [facility] is accepting facility of choice. Asked pt/ot for updates and will reinitiate precert. Updated [facility]. Transport: cot and dsch packet remains at chart box. SIGNATURE: Yumiko Richards RN PATIENT NAME: Audra Archer DATE: October 29, 2024 TIME: 10:57 AM PROGRESS Observed: 10/29/2024 7:03 AM Status: COMPLETED Source: [facility] HNO ID: [id number] Author: NASH MANZANARES MD Service: Orthopaedic Surgery Author Type: Physician Type: Progress Notes Filed: 10/29/2024 10:12 Note Text: I evaluated the patient and personally participated in the richards components. I agree with the resident's findings and plan with the following revisions and/or additions: Ambulated to bathroom and currently in chair. Feels well. Bandage removed and wound healing well. Leave open to air. Pre ert pending for SNF. Transfer to floor when bed available. Signature: Nash Manzanares MD Service Date: 10/29/2024 Service Time: 10:11 AM ORTHOPAEDIC SURGERY DAILY PROGRESS NOTE Patient Name: Audra Archer Date of Evaluation: 10/29/2024 Admission Date: 10/22/2024 Time of Evaluation: 7:03 AM ASSESSMENT: 79 year old female POD # 7 s/p L TKA PLAN: -Pain control -Weight Bearing As Tolerated LLE -Dressing management - Mepilex X7 days -Reg diet -PT/OT -DVT ppx: Aspirin 81mg BID -D/C planning: Rehab at [facility] -Outpatient pulmonary follow up for PABLO and lung nodule mgmt -Follow up: With Dr. Manzanares in 10-14 days INTERVAL HPI: No acute events overnight recorded in chart. Resting in bed. Pain controlled. No new concerns. OBJECTIVE: BP 136/69 Pulse 80 Temp 36.6 ?C (97.9 ?F) (Oral) Resp 16 Ht 165.1 cm (5' 5) Wt 101 kg (222 lb 10.6 oz) SpO2 97% BMI 37.05 kg/m? Intake/Output Summary (Last 24 hours) No intake/output data recorded. Exam: General: Pt is alert, resting in bed, no acute distress, cooperative throughout the exam and interview, answers questions appropriately Extremities: Left Lower Extremity: Dressing clean, dry, and intact. Surgical site no drainage and Mepilex intact. SILT Galindo/Sa/SP/DP/T Motor intact DF/PF/EHL DP pulse palpable, foot warm, BCR toes Compartments soft, compressible. Tolerates passive stretch of digits. Labs: BMP: Sodium 138 10/29/2024 Potassium 4.0 10/28/2024 Chloride 99 10/29/2024 CO2 28 10/29/2024 BUN 21 10/29/2024 Creatinine 1.05 10/29/2024 Glucose 121 10/29/2024 CBC: WBC 7.43 10/29/2024 Hemoglobin 11.8 10/29/2024 Hematocrit 37.5 10/29/2024 Platelet Count 237 10/29/2024 COAGS: INR 1.0 11/06/2021 SED RATE/CRP: No results found for this basename: wsr:*,crp:* Imaging: No new orthopaedic imaging to review Hospital Course/Operations/Procedures: 10/22/2024 Procedure(s) with comments: ARTHROPLASTY REPLACE JOINT TOTAL KNEE - Error found in Charging summary - End event Phase II Discharge Criteria Met is not entered. This event determines the length for PACU PHASE 2. Shashank Manzanares DO, PGY-2 Resident, Orthopaedic Surgery Pager #: [phone] 10/29/2024 7:03 AM INPATIENT ATTENDING: Dr. Manzanares, Nash Cole MD, Elective High-Risk Geriatric Patient Vulnerabilities: Delirium Risk, Impaired Functional Status, and Impaired Mobility Diet: DIET CARBOHYDRATE CONTROLLED Recommendations: Cognition: No Cognitive Impairment bCAM Score (Calc): Positive Delirium Screen Confusion Assessment Method (CAM - ICU Score): Negative Geriatric Consult (Age over 85 or impaired cognition):Consult not needed Palliative Care/Hospice: Consult not required Rehab/Therapy: PT/OT Recommendations: PT: Recommended Discharge Disposition: Subacute/SNF OT: Recommended Discharge Disposition: Subacute/SNF Swallow: Swallow Screening Result - Step 2: PASSED Swallow Screen - Patient Able To Swallow 3 Ounce Cup of Water Without Exhibiting Signs Of Aspiration Speech Recommendations: Speech: Speech Diet: Nutrition: Consult not required Nutrition Recommendations: MST: Total MST Score (Calculated): 0 Quality Consultant: Pharmacy: Consult not needed Social Work: NA Anticipated Discharge Disposition: Longterm Facility CBC PNL BLD AUTO Collected: 10/29/2024 4:51 AM Statu s: F Source: [facility] Order Comment: Specimen Type : BLOOD SPECIMEN Ordering Facility: [facility] Address: [address] [place] [address] TYPE CODE TESTS RESULT OUT OF RANGE REFERENCE UNITS LAB 6690-2(LOINC) WBC # Bld Auto 7.43 3.70-11.00 k/uL LAB 789-8(LOINC) RBC # Bld Auto 4.17 3.90-5.20 m/ uL LAB 718-7(LOINC) Hgb Bld-mCnc 11.8 11.5-15.5 g/dL LAB 4544-3(LOINC) Hct VFr Bld Auto 37.5 36.0-46.0 % LAB 787-2(LOINC) MCV RBC Auto 89.9 80.0-100.0 fL LAB 785-6(LOINC) MCH RBC Qn Auto 28.3 26.0-34.0 pg LAB 786-4(LOINC) MCHC RBC Auto-mCnc 31.5 30.5-36.0 g/dL LAB 02663-3(LOINC) RDW RBC-Rto 13.7 11.5-15.0 % LAB 777-3(LOINC) Platelet # Bld Auto 237 150-400 k/uL LAB 60548-2(LOINC) PMV Bld Auto 10.9 9.0-12.7 fL LAB 771-6([facility]) nRBC # Bld Auto <0.01 <0.01 k/uL Performed By: #### [id number] # ### [facility] CLIA [id number] [address] [place] BAS METAB 2000 PNL SERPL Collected: 01/2025 4:51 AM Status: F Source: [facility] Order Comment: Specimen Type : BLOOD SPECIMEN Ordering Facility: [facility] Address: [address] [place] [address] TYPE CODE TESTS RESULT OUT OF RANGE REFERENCE UNITS LAB 2345-7(LOINC) Glucose SerPl-mCnc 121 High 74-99 mg/dL Result Comment: The [place] Diabetes Association (ADA) provides guidance for cutoff values for fasting glucose and random glucose. The ADA defines fasting as no caloric intake for at least 8 hours. Fasting plasma glucose results between 100 to 125 mg/dL indicate increased risk for diabetes (prediabetes). Fasting plasma glucose results greater than or equal to 126 mg/dL meet the criteria for diagnosis of diabetes. In the absence of unequivocal hyperglycemia, results should be confirmed by repeat testing. In a patient with classic symptoms of hyperglycemia or hyperglycemic crisis, random plasma glucose results greater than or equal to 200 mg/dL meet the criteria for diagnosis of diabetes. Reference: Standards of Medical Care in Diabetes 2016, [place] [employer]. Diabetes Care. 2016.39(Suppl 1). LAB 3094-0(LOINC) BUN SerPl-mCnc 21 7-21 mg/ dL LAB 2160-0(LOINC) Creat SerPl-mCnc 1.05 High 0.58-0.96 mg/dL LAB 2951-2(LOINC) Sodium SerPl-sCnc 138 136-144 mmol/L LAB 2823-3(LOINC) Potassium SerPl-sCnc Result Comment: Unable to as say due to interference from hemolysis. Suggest reorder as clinically indicated. LAB 5-0(LOINC) Chloride SerPl-sCnc 99 98-107 mmol/L LAB 2027-9(LOINC) CO2 SerPl-sCnc 28 22-30 mmo l/L LAB 1863-0(LOINC) Anion Gap4 SerPl-sCnc 11 8-15 mmol/L LAB 13736-9(LOINC) Calcium SerPl-mCnc 8.9 8.5-10.2 mg/dL LAB 18575-2(LOINC) Creatinine + eGFR Pnl SerPlBld 54 Low >=60 mL/min/1. 73m??? Result Comment: Estimated Gl omerular Filtration Rate (eGFR) is calculated using the 2020 CKD-EPI creatinine equation. This equation utilizes serum creatinine, sex, and age as parameters. The creatinine assay has traceable calibration to isotope dilution-mass spectrometry. Refer to KDIGO guidelines for clinical interpretation. In patients with unstable renal function, e.g. those with acute kidney injury, the eGFR may not accurately reflect actual GFR. Performed By: #### 63087-0 # ### [facility] CLIA [id number] [address] OF [facility] PROGRESS Observed: 10/28/2024 2:29 PM Status: COMPLETED Source: [facility] HNO ID: [id number] Author: AYO SAHNI MD Service: General Internal Medicine Author Type: Physician Type: Progress Notes Filed: 10/28/2024 14:34 Note Text: PROGRESS NOTE COVERAGE: From 7am - 7pm, please call Sound Physician on duty After 7pm, please call cross cover pager #[phone] Subjective CHIEF COMPLAINT: Hypoxia SUBJECTIVE: Pt seen and examined. Patient is feeling better, still have post surgical pain. Breathing reports to be better. No other acute event overnight. On O2 therapy with NC. Awaiting bed on [facility]. Current Facility-Administered Medications Medication Dose Route Frequency carvedilol 6.25 mg tab(s) (COREG) 6.25 mg ORAL BID w MEALS citalopram hydrobromide 10 mg tablet (CeleXA) 10 mg ORAL DAILY isosorbide mononitrate ER 30 mg tab(s) (IMDUR) 30 mg ORAL DAILY nitroglycerin sublingual 0.4 mg tab(s) (NITROQUICK) 0.4 mg SUBLINGUAL q [address] 40 mg tab(s) (PROTONIX) 40 mg ORAL BID ondansetron 4 mg tab(s) (ZOFRAN) 4 mg ORAL q 6 H PRN Or ondansetron (PF) 4 mg injection (ZOFRAN) 4 mg INTRAVENOUS q 6 H PRN magnesium hydroxide 400 mg/5 mL 30 mL (MOM) 30 mL ORAL DAILY PRN bisacodyl EC 10 mg tab(s) (DULCOLAX) 10 mg ORAL DAILY aluminum-magnesium hydroxide-simethicone 200-200-20 mg/5 mL 30 mL 30 mL ORAL q 2 H PRN ascorbic acid (vitamin C) 500 mg tab(s) (VITAMIN C) 500 mg ORAL BID w MEALS aspirin, enteric coated 81 mg tab(s) 81 mg ORAL BID NaCl 0.9% iv flush bag 20 mL INTRAVENOUS PRN acetaminophen 1,000 mg tab(s) (TYLENOL) 1,000 mg ORAL q 8 H dextrose 15 gram/32 mL 15 g (TRUEPLUS) 15 g ORAL PRN Or glucagon 1 mg injection 1 mg INTRAMUSCULAR PRN Or dextrose 10% iv bolus 12.5 g INTRAVENOUS PRN magnesium lactate ER 84 mg tab(s) (MAGTAB) 84 mg ORAL AT BEDTIME lidocaine 4 % 1 patch (SALONPAS) 1 patch TRANSDERMAL DAILY And lidocaine patch - REMOVE OTHER AT BEDTIME And lidocaine - VERIFY PATCH OTHER q 8 H insulin glargine 12 Units injection (LANTUS SOLOSTAR, BASAGLAR KWIKPEN) 12 Units SUBCUTANEOUS AT BEDTIME labetalol 5 mg injection syringe (NORMODYNE) 5 mg INTRAVENOUS q 4 H PRN iv contrast (radiology procedure) INTRAVENOUS DIRECTED PRN insulin lispro injection (rapid acting) (ADMElog) SUBCUTANEOUS w MEALS pregabalin 25 mg cap(s) (LYRICA) 25 mg ORAL TID senna-docusate 8.6-50 mg 2 tablet (SENNA-S) 2 tablet ORAL BID Objective PHYSICAL EXAM: BP 121/48 Pulse 76 Temp (Src) 97.9 (Oral) Resp 10 Ht 5' 5 (1.65m) Wt 222 lb 10.6 oz (101.0kg) SpO2 96% BMI 37.05 kg/(m2). O2 Therapy: Nasal Cannula, Liters (Numeric Only): 2 General - AANDOx3 CV - RRR S1 S2 RESP - equal bilateral air entry with harsh vesicular breathing, decreased sound in bilateral bases, on O2 therapy with nasal cannula ABD - Positive Bowel Sounds EXT - no edema NEURO - CN II-XII grossly intact Lines, Drains, and Airways Line Duration Peripheral 10/24/[address] [facility] Short Right Forearm 22 Gauge 4 days Peripheral 10/26/[address] [facility] Right Forearm 20 Gauge 2 days DATA: Diagnostic tests reviewed for today's visit: Recent Labs 10/28/24 0433 10/27/24 0500 10/26/24 0419 WBC 8.19 7.87 8.50 HB 10.7* 11.7 12.3 HCT 33.4* 35.1* 38.1 PLT 182 177 162 NA 138 138 135* K 4.0 4.3 4.5 CHLOR 100 98 97* CO2 30 31* 31* BUN 26* 30* 17 CREAT 1.11* 1.02* 0.92 GLUC 125* 116* 94 CA 9.1 8.7 9.3 MG -- 1.8 -- P -- 3.1 -- COAG: No results for input(s): APTT, INR in the last 168 hours. CHEM: Recent Labs 10/28/24 0433 10/27/24 0500 10/26/24 0419 10/25/24 0345 10/24/24 1000 10/23/24 0222 CA 9.1 8.7 9.3 9.0 8.4* 8.5 MG -- 1.8 -- -- -- -- HEPATIC: No results for input(s): ALKPHOS, ALT, AST, TBILI, LIPASE in the last 168 hours. URINALYSIS: Recent Labs 10/24/24 2130 SPGR 1.009 UGLUC Negative UBILI Negative UKET Negative UHB 3+* UPROT Negative UWBC 0-5 /HPF CARDIAC: No results for input(s): PBNP in the last 168 hours. Positive Micro-30 Days No results found for the last 720 hours. ASSESSMENT AND PLAN WITH SUMMARY OF STAY: # Acute hypoxic respiratory failure, improving -No evidence of PE or pneumonia on CT chest - Hypoxia likely secondary to PABLO or atelectasis - Patient to continue breathing exercises - O2 therapy with nasal cannula, will wean as tolerated - Continue supportive care # Acute encephalopathy/delirium due to hypercapnia with somnolence - Improving, continue clinical monitoring # PABLO, not on CPAP therapy # Status post left knee arthroplasty, POD 6 - Continue pain management - Postsurgical recommendation as per orthopedic team # CKD stage III, clinical monitoring # Hypertension # Incidental right middle lobe pulm nodule, will need outpatient follow-up # Chronic pain # Type 2 diabetes, on insulin therapy, clinical monitoring Monitor patient on RNF. Medication and Non-Pharmacologic VTE Prophylaxis/Anticoagulants Anticoagulant AND Antiplatelet Medications (From admission, onward) Start Dose Route Frequency Last Action Ordered Stop 10/23/24 0900 aspirin, enteric coated 81 mg tab(s) (Surgical Risk Categories) 81 mg PO 2 TIMES DAILY Given, 10/28 0810/22/242009 -- 10/22/242014 activity - mobilize patient ([place] 10/22/24 1930 pneumatic compression sleeve(s) ([place] VTE Prophylaxis: VTE prophylaxis appropriate Disposition: To be determined Plan of care discussed with: Provider, RN, Patient Disclaimer: Portions of this note may have been generated using [employer] voice recognition software and is inherently subject to errors including those of syntax and sound-alike substitutions, reasonable efforts were made to correct any dictation errors that resulted due to the programming of this software but some may still be present which may escape proofreading. In such instances, original meaning may be extrapolated by contextual derivation. The time of this note does not reflect the time I saw the patient but the time that this note was written. SIGNATURE: Ayo Sahni MD DATE: October 28, 2024 PATIENT NAME: Audra Archer PROGRESS Observed: 10/28/2024 5:51 AM Status: COMPLETED [facility] [id number] Author: JEREMY CARTER MD Service: Orthopaedic Surgery Author Type: Resident Type: Progress Notes Filed: 10/28/2024 06:46 Note Text: Orthopaedic Surgery Inpatient Progress Note Assessment Audra Archer is a 79 year old female who is POD #6 status-post L TKA. Plan -Pain control -Weight Bearing As Tolerated LLE -Dressing management - Mepilex X7 days -Reg diet -PT/OT patient has Rehab bed at [facility] until 10/26, will need new eval -DVT ppx: Aspirin 81mg BID -D/C planning: Rehab at [facility] -Outpatient pulmonary follow up for PABLO and lung nodule mgmt -Follow up: With Dr. Manzanares in 10-14 days Subjective Transferred to [facility] initiated. Patient now satting 100% on 2L, 91% 10 L ovn. Better mentation today. Denies significant pain or numbness/tingling to L knee, got up with PT. Physical Examination Vitals BP 126/57 Pulse 78 Temp 36.6 ?C (97.9 ?F) (Axillary) Resp 26 Ht 165.1 cm (5' 5) Wt 96.9 kg (213 lb 10 oz) SpO2 91% BMI 35.55 kg/m? General Alert and oriented. No acute distress. Cooperative with interview. Left Lower Extremity Dressing With small amount of dried saturation SILT Galindo/Sa/DP/SP/T. Motor intact EHL/DF/PF. DP/PT pulses palpable; BCR all digits. Labs Recent Labs 10/28/24 0433 10/27/24 0500 10/26/24 0419 10/26/24 0419 10/25/24 0932 NA 138 138 < > 135* -- K 4.0 4.3 < > 4.5 -- CHLOR 100 98 < > 97* -- CO2 30 31* < > 31* -- BUN 26* 30* < > 17 -- CREAT 1.11* 1.02* < > 0.92 -- GLUC 125* 116* < > 94 -- ANION 8 9 < > 7* -- CA 9.1 8.7 < > 9.3 -- MG -- 1.8 -- -- -- P -- 3.1 -- -- -- WBC 8.19 7.87 < > 8.50 -- HB 10.7* 11.7 < > 12.3 -- HCT 33.4* 35.1* < > 38.1 -- PLT 182 177 < > 162 -- LACT -- -- -- 1.2 0.8 < > = values in this interval not displayed. Imaging NNOI Jeremy Carter MD Orthopaedic Surgery, PGY1 10/28/2024 6:46 AM Please page [phone] for urgent questions INPATIENT ATTENDING: Dr. Manzanares, Nash Cole MD, Elective High-Risk Geriatric Patient Vulnerabilities: Impaired Functional Status and Impaired Mobility Diet: DIET CARBOHYDRATE CONTROLLED Recommendations: Cognition: No Cognitive Impairment bCAM Score (Calc): Positive Delirium Screen Confusion Assessment Method (CAM - ICU Score): Negative Geriatric Consult (Age over 85 or impaired cognition):Consult not needed Palliative Care/Hospice: Consult not required Rehab/Therapy: PT/OT Recommendations: PT: Recommended Discharge Disposition: Subacute/SNF OT: Recommended Discharge Disposition: Subacute/SNF Swallow: Swallow Screening Result - Step 2: PASSED Swallow Screen - Patient Able To Swallow 3 Ounce Cup of Water Without Exhibiting Signs Of Aspiration Speech Recommendations: Speech: Speech Diet: Nutrition: Consult not required Nutrition Recommendations: MST: Total MST Score (Calculated): 0 Quality Consultant: Pharmacy: Consult not needed Social Work: NA Anticipated Discharge Disposition: BAS METAB 1999 PNL SERPL Collected: 12/2024 4:33 AM Status: F Source: [facility] Order Comment: Specimen Type : BLOOD SPECIMEN Ordering Facility: [facility] Address: [address] [place] [address] TYPE CODE TESTS RESULT OUT OF RANGE REFERENCE UNITS LAB 2345-7(LOINC) Glucose SerPl-mCnc 125 High 74-99 mg/dL Result Comment: The [place] Diabetes Association (ADA) provides guidance for cutoff values for fasting glucose and random glucose. The ADA defines fasting as no caloric intake for at least 8 hours. Fasting plasma glucose results between 100 to 125 mg/dL indicate increased risk for diabetes (prediabetes). Fasting plasma glucose results greater than or equal to 126 mg/dL meet the criteria for diagnosis of diabetes. In the absence of unequivocal hyperglycemia, results should be confirmed by repeat testing. In a patient with classic symptoms of hyperglycemia or hyperglycemic crisis, random plasma glucose results greater than or equal to 200 mg/dL meet the criteria for diagnosis of diabetes. Reference: Standards of Medical Care in Diabetes 2016, [place] [employer]. Diabetes Care. 2016.39(Suppl 1). LAB 3094-0(LOINC) BUN SerPl-mCnc 26 High 7-21 mg/ dL LAB 2160-0(LOINC) Creat SerPl-mCnc 1.11 High 0.58-0.96 mg/dL LAB 2951-2(LOINC) Sodium SerPl-sCnc 138 136-144 mmol/L LAB 2823-3(LOINC) Potassium SerPl-sCnc 4.0 3.7-5.1 mmol/L LAB 2075-0(LOINC) Chloride SerPl-sCnc 100 98-107 mmol/L LAB 2027-9(LOINC) CO2 SerPl-sCnc 30 22-30 mmo l/L LAB 1863-0(LOINC) Anion Gap4 SerPl-sCnc 8 8-15 mmol/L LAB 01373-2(LOINC) Calcium SerPl-mCnc 9.1 8.5-10.2 mg/dL LAB 65837-2(LOINC) Creatinine + eGFR Pnl SerPlBld 50 Low >=60 mL/min/1. 73m??? Result Comment: Estimated Gl omerular Filtration Rate (eGFR) is calculated using the 2020 CKD-EPI creatinine equation. This equation utilizes serum creatinine, sex, and age as parameters. The creatinine assay has traceable calibration to isotope dilution-mass spectrometry. Refer to KDIGO guidelines for clinical interpretation. In patients with unstable renal function, e.g. those with acute kidney injury, the eGFR may not accurately reflect actual GFR. Performed By: #### [id number] # ### [facility] CLIA [id number] [address] STATES OF [facility] CBC PNL BLD AUTO Collected: 10/28/2024 4:33 AM Statu s: F Source: [facility] Order Comment: Specimen Type : BLOOD SPECIMEN Ordering Facility: [facility] Address: [address] [place] [address] TYPE CODE TESTS RESULT OUT OF RANGE REFERENCE UNITS LAB 6690-2(LOINC) WBC # Bld Auto 8.19 3.70-11.00 k/uL LAB 789-8(LOINC) RBC # Bld Auto 3.75 Low 3.90-5.20 m/ uL LAB 718-7(LOINC) Hgb Bld-mCnc 10.7 Low 11.5-15.5 g/dL LAB 4544-3(LOINC) Hct VFr Bld Auto 33.4 Low 36.0-46.0 % LAB 787-2(LOINC) MCV RBC Auto 89.1 80.0-100.0 fL LAB 785-6(LOINC) MCH RBC Qn Auto 28.5 26.0-34.0 pg LAB 786-4([facility]) MCHC RBC Auto-mCnc 32.0 30.5-36.0 g/dL LAB 52969-1([facility]) RDW RBC-Rto 13.7 11.5-15.0 % LAB 777-3([facility]) Platelet # Bld Auto 182 150-400 k/uL LAB 36573-9([facility]) PMV Bld Auto 10.4 9.0-12.7 fL LAB 771-6([facility]) nRBC # Bld Auto <0.01 <0.01 k/uL Performed By: #### 92953-3 # ### [facility] CLIA [id number] [address] PROGRESS Observed: 10/27/2024 12:35 PM Status: COMPLETED Source: [facility] HNO ID: [id number] Author: EILEEN BARKER APRN.[employer] PREPARATION WORKER Service: Critical Care Author Type: Nurse Practitioner Type: Progress Notes Filed: 10/27/2024 13:50 Note Text: ICU TRANSFER NOTE Patient Name: Audra Archer Account #: Data Unavailable Admission Date: 10/22/2024 Date of Transfer: 10/27/2024 Time of Evaluation: 12:35 PM ICU COURSE: Patient admitted 10/22 for L TKA with orthopedics. Patient was admitted to the [facility] post-op. CORK WIRER was called 10/24 for AMS, hypercapnia 2/2 opiate use for pain control and pregabalin. Patient was transferred to the ICU for BiPAP. Patient was weaned off BiPAP and mental status improved with resolution of hypercapnia. CTPE was obtained and was negative. Pain management was consulted and adjusted pain regimen. Patient tolerating diet, on 2L NC. Patient was stable for transfer to [facility] 10/27. BP 123/54 Pulse 73 Temp 36.2 ?C (97.2 ?F) (Temporal) Resp 12 Ht 165.1 cm (5' 5) Wt 96.9 kg (213 lb 10 oz) SpO2 97% BMI 35.55 kg/m? PHYSICAL EXAMINATION General: Alert and oriented, no distress, pleasant and cooperative. Heart: Regular, normal S1 and S2, no murmurs, rubs, or gallops Lungs: Clear to auscultation bilaterally, 2L NC Abdomen: Benign Extremities: Feet/ankles without edema, posterior tibial pulses full and symmetrical MEDICATIONS: Current Facility-Administered Medications Medication Dose Route Frequency carvedilol 6.25 mg tab(s) (COREG) 6.25 mg ORAL BID w MEALS citalopram hydrobromide 10 mg tablet (CeleXA) 10 mg ORAL DAILY isosorbide mononitrate ER 30 mg tab(s) (IMDUR) 30 mg ORAL DAILY nitroglycerin sublingual 0.4 mg tab(s) (NITROQUICK) 0.4 mg SUBLINGUAL q [address] 40 mg tab(s) (PROTONIX) 40 mg ORAL BID ondansetron 4 mg tab(s) (ZOFRAN) 4 mg ORAL q 6 H PRN Or ondansetron (PF) 4 mg injection (ZOFRAN) 4 mg INTRAVENOUS q 6 H PRN magnesium hydroxide 400 mg/5 mL 30 mL (MOM) 30 mL ORAL DAILY PRN bisacodyl EC 10 mg tab(s) (DULCOLAX) 10 mg ORAL DAILY aluminum-magnesium hydroxide-simethicone 200-200-20 mg/5 mL 30 mL 30 mL ORAL q 2 H PRN ascorbic acid (vitamin C) 500 mg tab(s) (VITAMIN C) 500 mg ORAL BID w MEALS aspirin, enteric coated 81 mg tab(s) 81 mg ORAL BID NaCl 0.9% iv flush bag 20 mL INTRAVENOUS PRN acetaminophen 1,000 mg tab(s) (TYLENOL) 1,000 mg ORAL q 8 H dextrose 15 gram/32 mL 15 g (TRUEPLUS) 15 g ORAL PRN Or glucagon 1 mg injection 1 mg INTRAMUSCULAR PRN Or dextrose 10% iv bolus 12.5 g INTRAVENOUS PRN magnesium lactate ER 84 mg tab(s) (MAGTAB) 84 mg ORAL AT BEDTIME lidocaine 4 % 1 patch (SALONPAS) 1 patch TRANSDERMAL DAILY And lidocaine patch - REMOVE OTHER AT BEDTIME And lidocaine - VERIFY PATCH OTHER q 8 H insulin glargine 12 Units injection (LANTUS SOLOSTAR, BASAGLAR KWIKPEN) 12 Units SUBCUTANEOUS AT BEDTIME labetalol 5 mg injection syringe (NORMODYNE) 5 mg INTRAVENOUS q 4 H PRN iv contrast (radiology procedure) INTRAVENOUS DIRECTED PRN insulin lispro injection (rapid acting) (ADMElog) SUBCUTANEOUS w MEALS pregabalin 25 mg cap(s) (LYRICA) 25 mg ORAL TID senna-docusate 8.6-50 mg 2 tablet (SENNA-S) 2 tablet ORAL BID TUBES AND LINES: PIV ASSESSMENT AND PLAN: Acute hypoxic and hypercapnic respiratory failure improving Somnolence, resolved 2/2 hypercapnia Acute metabolic encephalopathy improving Delirium improving POD #5 s/p L TKA PABLO not on CPAP Type II DM CKD stage III HTN Chronic pain Incidental RML lung nodule MMP Continue ICU care Blood gas improving and no longer hypercapnic. Would encourage nocturnal NIPPV, however, she has been refusing attempts No evidence of PE or pneumonia on CT chest. Hypoxia likely due to PABLO and atelectasis. Encourage nocturnal device use and up out of bed as tolerated Delirium still present, however she is directable and this is slowly improving. Tolerating more PO intake and is now taking medication CT brain 6/5 no acute abnormalities DC IVF, taking in more PO Removed butrans patch 6/4, not reporting any pain. Increase lyrica at reduced dose to 25mg TID (was on 150mg TID at home) Bowel regimen Monitor HR / BP. Continue supplemental O2, wean as tolerated to saturation > 90% Encourage incentive spirometer and Acapella PT/OT Monitor electrolytes. Keep K >4, Mg >2, Po4 >2.5 Resume home medications as tolerated Ensure BG control as indicated; goal <180 but avoid Hypoglycemia. Adjustments made to long acting DVT prophylaxis; aspirin BID per ortho. GI prophylaxis; continue home omeprazole Recommend outpatient pulmonary follow up for PABLO and lung nodule management. Per Fleischner guidelines, repeat CT scan in 6-12 months VTE Prophylaxis: ASA 81mg BID per Ortho GI Prophylaxis if indicated: Not Indicated Nutrition:Carb control Physical therapy:PT/OT UPDATE PATIENT STATUS: Yes Sign out communication: I have discussed the transfer of the patient, Audra Archer with Dr. Rodriges, patient, daughter and Dr Avelar ([facility]). Transferred to: [facility] with telemetry New Physician Attending: Rosio Barker APRN.[employer] PREPARATION WORKER PLAN OF CARE Observed: 10/27/2024 12:31 PM Status: COMPLETED Source: [facility] HNO ID: [id number] Author: EILEEN BARKER APRN.CNP Service: Critical Care Author Type: Nurse Practitioner Type: Plan of Care Filed: 10/27/2024 12:34 Note Text: Called and updated daughter, Marry, of patient's current status and treatment plan. Patient planning to transfer to the [facility]. Daughter is in agreement with transfer. Answered all questions to family member satisfaction and encouraged to call back with any further questions. PROGRESS Observed: 10/27/2024 8:30 AM Status: COMPLETED Source: [facility] HNO ID: [id number] Author: GURPREET RODRIGES DO Service: Critical Care Author Type: Physician Type: Progress Notes Filed: 10/27/2024 08:38 Note Text: CRITICAL CARE PROGRESS NOTE SERVICE DATE: October 27, 2024 Admission Date: 10/22/2024 AGE: [age] year old LOS: 4 days 79F with PMHx CAD, type II DM, CKD stage III, PABLO not on CPAP, GERD, HLD, HTN, OA and chronic pain admitted for planned L TKA on 10/22 somnolent on [facility], found to be in hypercapnic respiratory failure and transferred to MICU for BiPAP. Delirium in ICU Plan of care rounds were performed and the ICU checklist was reviewed and completed. ICU Checklist Last Documented/Reviewed time: 10/27/2024 1:00 AM ICU Consent Complete?: No ICU Code Status History assess/Full code by default: No, active code status present A= Assess, Prevent, Manage Pain Pain adequately controlled?: Yes C= Choice of Sedation and Analgesia RASS at Goal?: Yes B= Both Spontaneous Awakening and Breathing Trials Ventilator: None D= Delirium: Assess, Prevent and Manage ICU Delirium Status: CAM Positive - existing, continue interventions Sleep adequate?: Yes Restraint Status: None E= Early Mobility/Excercise ICU Mobility: ICU Mobility Goal: Move to chair, PT/OT consult ordered F= Family Engagement and Empowerment ICU plan of care visit at bedside in last 24 hours: Yes, Provider, RN, Patient/ designee ICU Disposition: ICU Disposition-POC Detail: To be determined Prevention: Line Status: None Knight Status: Present, still need today Pressure Injury Status: None GI/Stress Ulcer Prophylaxis: PPI Nutrition is at Goal: Yes VTE Prophylaxis: Chemoprophylaxis: Other - Specify (Comment: ASA s/p knee replacement) Subjective Eating better, less agitated Objective PROBLEMS: ACTIVE PROBLEM LIST Intertrochanteric Fracture of Right Femur, Closed, Initial Encounter ([facility]) Obesity, Class II, Bmi 35-39.9 Anemia, Unspecified Stage 3b Chronic Kidney Disease ([facility]) Hypertension Hyperlipidemia Gastroesophageal Reflux Disease Controlled Type 2 Diabetes Mellitus Without Complication, With Long-Term Current Use of Insulin ([facility]) Depressive Disorder Pain in Right Hip Stage 3 Chronic Kidney Disease ([facility]) Arteriosclerosis of Coronary Artery Class 1 Obesity Due to Excess Calories With Body Mass Index (Bmi) of 34.0 to 34.9 in Adult [place] (Obstructive Sleep Apnea) Tobacco Abuse Status Post Total Hip Replacement, Right Primary Osteoarthritis of Left Knee Preop Examination Status Post Total Knee Replacement, Left Acute Respiratory Failure With Hypoxia and Hypercapnia ([facility]) Acute Metabolic Encephalopathy Somnolence Other Chronic Pain Delirium PAST MEDICAL HISTORY Diagnosis Date Angina pectoris Chronic kidney disease, stage 3b ([facility]) Coronary arteriosclerosis Depression GERD (gastroesophageal reflux disease) HLD (hyperlipidemia) HTN (hypertension) Neuropathy bilateral feet Obesity PABLO (obstructive sleep apnea) Primary osteoarthritis of left knee Right hip pain Tobacco abuse 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 PAST SURGICAL HISTORY Procedure Laterality Date APPENDECTOMY 1955 L'SCOPE CHOLECYSTECTOMY LIGATE FALLOPIAN TUBE PAST SURGICAL HISTORY OF C5 and C6 fusion with titanium PAST SURGICAL HISTORY OF Right 02/06/2024 right [place] TOTAL ABDOM HYSTERECTOMY TX INTER/NY/SUBTRCHNTRIC FEMORAL FX SCREW IMPLT Right 11/07/2021 Social History Tobacco Use Smoking status: Former Current packs/day: 0.00 Average packs/day: 3.0 packs/day for 45.0 years (135.0 ttl pk-yrs) Types: Cigarettes Start date: 12/1961 Quit date: 12/2006 Years since quittin.8 Smokeless tobacco: Never Vaping Use Vaping status: Never Used Substance Use Topics Alcohol use: Not Currently Drug use: Never VITAL SIGNS (last 24hrs min/max): Temp Av.3 ?C (99.2 ?F) Min: 36.2 ?C (97.1 ?F) Max: 37.6 ?C (99.7 ?F) Pulse Av.9 Min: 64 Max: 85 No data recorded Cuff BP Min: 114/48 Max: 168/63 Pain Level: 0 Vital signs reviewed. BP 121/58 Pulse 71 Temp (Src) 97.2 (Temporal) Resp 17 Ht 5' 5 (1.65m) Wt 213 lb 10 oz (96.9kg) SpO2 95% BMI 35.55 kg/(m2). O2 Therapy: Nasal Cannula, Liters (Numeric Only): 2 Temp (24hrs), Av.3 ?C (99.2 ?F), Min:36.2 ?C (97.1 ?F), Max:37.6 ?C (99.7 ?F) NET FLUID BALANCE Intake/Output Summary (Last 24 hours) at 10/27/2024 0830 Last data filed at 10/27/2024 0600 Gross per 24 hour Intake 883 ml Output 825 ml Net 58 ml MEDICATIONS Current Facility-Administered Medications Medication Dose Route Frequency insulin lispro injection (rapid acting) (ADMElog) SUBCUTANEOUS w MEALS labetalol 5 mg injection syringe (NORMODYNE) 5 mg INTRAVENOUS q 4 H PRN iv contrast (radiology procedure) INTRAVENOUS DIRECTED PRN lidocaine 4 % 1 patch (SALONPAS) 1 patch TRANSDERMAL DAILY And lidocaine patch - REMOVE OTHER AT BEDTIME And lidocaine - VERIFY PATCH OTHER q 8 H pregabalin 25 mg cap(s) (LYRICA) 25 mg ORAL BID senna-docusate 8.6-50 mg 1 tablet (SENNA-S) 1 tablet ORAL BID insulin glargine 12 Units injection (LANTUS SOLOSTAR, BASAGLAR KWIKPEN) 12 Units SUBCUTANEOUS AT BEDTIME carvedilol 6.25 mg tab(s) (COREG) 6.25 mg ORAL BID w MEALS citalopram hydrobromide 10 mg tablet (CeleXA) 10 mg ORAL DAILY isosorbide mononitrate ER 30 mg tab(s) (IMDUR) 30 mg ORAL DAILY nitroglycerin sublingual 0.4 mg tab(s) (NITROQUICK) 0.4 mg SUBLINGUAL q [address] 40 mg tab(s) (PROTONIX) 40 mg ORAL BID ondansetron 4 mg tab(s) (ZOFRAN) 4 mg ORAL q 6 H PRN Or ondansetron (PF) 4 mg injection (ZOFRAN) 4 mg INTRAVENOUS q 6 H PRN magnesium hydroxide 400 mg/5 mL 30 mL (MOM) 30 mL ORAL DAILY PRN bisacodyl EC 10 mg tab(s) (DULCOLAX) 10 mg ORAL DAILY aluminum-magnesium hydroxide-simethicone 200-200-20 mg/5 mL 30 mL 30 mL ORAL q 2 H PRN ascorbic acid (vitamin C) 500 mg tab(s) (VITAMIN C) 500 mg ORAL BID w MEALS aspirin, enteric coated 81 mg tab(s) 81 mg ORAL BID NaCl 0.9% iv flush bag 20 mL INTRAVENOUS PRN acetaminophen 1,000 mg tab(s) (TYLENOL) 1,000 mg ORAL q 8 H dextrose 15 gram/32 mL 15 g (TRUEPLUS) 15 g ORAL PRN Or glucagon 1 mg injection 1 mg INTRAMUSCULAR PRN Or dextrose 10% iv bolus 12.5 g INTRAVENOUS PRN magnesium lactate ER 84 mg tab(s) (MAGTAB) 84 mg ORAL AT BEDTIME Lines, Drains, and Airways Line Duration Peripheral 10/24/[address] [facility] Short Right Forearm 22 Gauge 2 days Peripheral 10/24/24 1800 Short Right Hand 22 Gauge 2 days Peripheral 10/26/[address] [facility] Right Forearm 20 Gauge <1 day Drain Duration Indwelling Urinary Catheter 10/24/[address] [facility] Knight 16 Fr 2 days PHYSICAL EXAM PERFORMED: General: no acute distress Cardiovascular: Regular rhythm Respiratory: Clear to auscultation Abdomen: Soft and Nontender Extremities: Edema- No Neurologic: Mildly confused, Follows commands and Moving all extremities Respiratory/Nursing Documentation: O2 Therapy: Nasal Cannula (10/27/24 0600) HEMODYNAMIC DATA: Reviewed NUTRITION: Enteral Feeds: Yes Regular diet DATA: Diagnostic tests reviewed for today's visit, films/specimens were personally reviewed by me: Most recent labs and imaging results. LABS: Recent Labs 10/27/24 0500 WBC 7.87 RBC 4.00 HB 11.7 HCT 35.1* MCV 87.8 PLT 177 GLUC 116* BUN 30* CREAT 1.02* NA 138 K 4.3 CHLOR 98 CO2 31* CA 8.7 MG 1.8 ABG: Invalid input(s): [id number] CT Chest 10/26/[address]: [address] evidence of pulmonary embolism. 2. 6 mm right middle lobe nodule. 3. Finding: Solid: 6-8 mm (solitary nodule). IMPRESSION: 79F with PMHx CAD, type II DM, CKD stage III, PABLO not on CPAP, GERD, HLD, HTN, OA and chronic pain admitted for planned L TKA on 6/2 somnolent on RNF, found to be in hypercapnic respiratory failure and transferred to MICU for BiPAP Acute hypoxic and hypercapnic respiratory failure improving Somnolence, resolved 2/2 hypercapnia Acute metabolic encephalopathy improving Delirium improving POD #5 s/p L TKA PABLO not on CPAP Type II DM CKD stage III HTN Chronic pain Incidental RML lung nodule MMP Continue ICU care Blood gas improving and no longer hypercapnic. Would encourage nocturnal NIPPV, however, she has been refusing attempts No evidence of PE or pneumonia on CT chest. Hypoxia likely due to PABLO and atelectasis. Encourage nocturnal device use and up out of bed as tolerated Delirium still present, however she is directable and this is slowly improving. Tolerating more PO intake and is now taking medication CT brain 10/25 no acute abnormalities DC IVF, taking in more PO Removed butrans patch /, not reporting any pain. Increase lyrica at reduced dose to 25mg TID (was on 150mg TID at home) Bowel regimen Monitor HR / BP. Continue supplemental O2, wean as tolerated to saturation > 90% Encourage incentive spirometer and Acapella PT/OT Monitor electrolytes. Keep K >4, Mg >2, Po4 >2.5 Resume home medications as tolerated Ensure BG control as indicated; goal <180 but avoid Hypoglycemia. Adjustments made to long acting DVT prophylaxis; aspirin BID per ortho. GI prophylaxis; continue home omeprazole Recommend outpatient pulmonary follow up for PABLO and lung nodule management. Per Fleischner guidelines, repeat CT scan in 6-12 months Stable for transfer out of ICU today This patient has a high probability of sudden, clinically significant deterioration, which requires the highest level of physician preparedness to intervene urgently. I managed/supervised life or organ supporting interventions that required frequent physician assessment. I devoted my full attention to the direct care of this patient for the amount of time indicated below. Time I spent with family or surrogate(s) is included only if the patient was incapable of providing the necessary information or participating in medical decision making. Time devoted to teaching is not included. Discussed with staff/patient/family Time spent providing critical care services: 35 minutes excluding procedures. Portions of this note including HPI, ROS, impression/plan, and examination may have been copied forward from 10/26, as to provide important historical information essential in contributing to medical decision making. Documentation has been reviewed and edited as necessary to support clinical decision making for today's visit and to reflect my own independent evaluation of this patient. SIGNATURE: Gurpreet Rodriges DO PATIENT NAME: Audra Archer DATE: October 27, 2024 TIME: 8:30 AM PROGRESS Observed: 10/27/2024 6:14 AM Status: COMPLETED Source: [facility] HNO ID: [id number] Author: GATITO PENG MD Service: Orthopaedic Surgery Author Type: Resident Type: Progress Notes Filed: 10/27/2024 06:53 Note Text: Orthopaedic Surgery Inpatient Progress Note Assessment Audra Archer is a 79 year old female who is POD #4 status-post L TKA. Plan -Pain control -Weight Bearing As Tolerated LLE -Dressing management - Mepilex X7 days -Reg diet -PT/OT patient has Rehab bed at [facility] until 10/26, will need new eval if still inpatient tomorrow -DVT ppx: Aspirin 81mg BID -Post op Abx 2g AncefX2 doses -D/C planning: Rehab at [facility] -mgmt per ICU for respiratory distress -Follow up: With Dr. Manzanares in 10-14 days Subjective Transferred to ICU for respiratory issues. Patient now satting 98 on NC 2L. Better mentation today. Denies significant pain or numbness/tingling to L knee. Physical Examination Vitals BP 137/72 Pulse 72 Temp 36.2 ?C (97.1 ?F) (Temporal) Resp 7 Ht 165.1 cm (5' 5) Wt 96.9 kg (213 lb 10 oz) SpO2 98% BMI 35.55 kg/m? General Alert and oriented. No acute distress. Cooperative with interview. Left Lower Extremity Dressing With small amount of dried saturation SILT Galindo/Sa/DP/SP/T. Motor intact EHL/DF/PF. DP/PT pulses palpable; BCR all digits. Labs Recent Labs 10/27/24 0500 10/26/24 0419 10/25/24 0932 NA 138 135* -- K 4.3 4.5 -- CHLOR 98 97* -- CO2 31* 31* -- BUN 30* 17 -- CREAT 1.02* 0.92 -- GLUC 116* 94 -- ANION 9 7* -- CA 8.7 9.3 -- WBC 7.87 8.50 -- HB 11.7 12.3 -- HCT 35.1* 38.1 -- PLT 177 162 -- LACT -- 1.2 0.8 Imaging WARD Peng MD October 27, 2024 6:16 AM INPATIENT ATTENDING: Dr. Manzanares, Nash Cole MD, Elective High-Risk Geriatric Patient Vulnerabilities: Impaired Functional Status and Impaired Mobility Diet: DIET CARBOHYDRATE CONTROLLED Recommendations: Cognition: No Cognitive Impairment bCAM Score (Calc): Positive Delirium Screen Confusion Assessment Method (CAM - ICU Score): Negative Geriatric Consult (Age over 85 or impaired cognition):Consult not needed Palliative Care/Hospice: Consult not required Rehab/Therapy: PT/OT Recommendations: PT: Recommended Discharge Disposition: Subacute/SNF OT: Recommended Discharge Disposition: Subacute/SNF Swallow: Swallow Screening Result - Step 2: PASSED Swallow Screen - Patient Able To Swallow 3 Ounce Cup of Water Without Exhibiting Signs Of Aspiration Speech Recommendations: Speech: Speech Diet: Nutrition: Consult not required Nutrition Recommendations: MST: Total MST Score (Calculated): 0 Quality Consultant: Pharmacy: Consult not needed Social Work: NA Anticipated Discharge Disposition: BAS METAB 1999 PNL SERPL Collected: 11/2024 5:00 AM Status: F Source: [facility] Order Comment: Specimen Type : BLOOD SPECIMEN Ordering Facility: [facility] Address: [address] [place] [address] TYPE CODE TESTS RESULT OUT OF RANGE REFERENCE UNITS LAB 2345-7(LOINC) Glucose SerPl-mCnc 116 High 74-99 mg/dL Result Comment: The [place] Diabetes Association (ADA) provides guidance for cutoff values for fasting glucose and random glucose. The ADA defines fasting as no caloric intake for at least 8 hours. Fasting plasma glucose results between 100 to 125 mg/dL indicate increased risk for diabetes (prediabetes). Fasting plasma glucose results greater than or equal to 126 mg/dL meet the criteria for diagnosis of diabetes. In the absence of unequivocal hyperglycemia, results should be confirmed by repeat testing. In a patient with classic symptoms of hyperglycemia or hyperglycemic crisis, random plasma glucose results greater than or equal to 200 mg/dL meet the criteria for diagnosis of diabetes. Reference: Standards of Medical Care in Diabetes 2016, [place] [employer]. Diabetes Care. 2016.39(Suppl 1). LAB 3094-0(LOINC) BUN SerPl-mCnc 30 High 7-21 mg/ dL LAB 2160-0(LOINC) Creat SerPl-mCnc 1.02 High 0.58-0.96 mg/dL LAB 2951-2(LOINC) Sodium SerPl-sCnc 138 136-144 mmol/L LAB 2823-3(LOINC) Potassium SerPl-sCnc 4.3 3.7-5.1 mmol/L LAB 2075-0(LOINC) Chloride SerPl-sCnc 98 98-107 mmol/L LAB 2028-9(LOINC) CO2 SerPl-sCnc 31 High 22-30 mmo l/L LAB 1863-0(LOINC) Anion Gap4 SerPl-sCnc 9 8-15 mmol/L LAB 07405-5(LOINC) Calcium SerPl-mCnc 8.7 8.5-10.2 mg/dL LAB 45587-0(LOINC) Creatinine + eGFR Pnl SerPlBld 56 Low >=60 mL/min/1. 73m??? Result Comment: Estimated Gl omerular Filtration Rate (eGFR) is calculated using the 2020 CKD-EPI creatinine equation. This equation utilizes serum creatinine, sex, and age as parameters. The creatinine assay has traceable calibration to isotope dilution-mass spectrometry. Refer to KDIGO guidelines for clinical interpretation. In patients with unstable renal function, e.g. those with acute kidney injury, the eGFR may not accurately reflect actual GFR. Performed By: #### 65755-3, 2777-1, 82045-0 #### [facility] CLIA [id number] [address] MAGNESIUM SERPL-MCNC Collected: 10/27/2024 5:00 AM S tatus: F Source: [facility] Order Comment: Specimen Type : BLOOD SPECIMEN Ordering Facility: [facility] Address: [address] [place] [address] TYPE CODE TESTS RESULT OUT OF RANGE REFERENCE UNITS LAB 19981-6(LOINC) Magnesium SerPl-mCnc 1.8 1.7-2.3 mg/dL Performed By: #### 24148-9, 2777-1, 13640-3 #### [facility] CLIA [id number] [address] PHOSPHATE SERPL-MCNC Collected: 10/27/2024 5:00 AM S tatus: F Source: [facility] Order Comment: Specimen Type : BLOOD SPECIMEN Ordering Facility: [facility] Address: [address] [place] [address] TYPE CODE TESTS RESULT OUT OF RANGE REFERENCE UNITS LAB 2777-1(LOINC) Phosphate SerPl-mCnc 3.1 2.7-4.8 mg/dL Performed By: #### 48540-2, 2777-1, 30271-6 #### [facility] CLIA [id number] [address] CBC PNL BLD AUTO Collected: 10/27/2024 5:00 AM Statu s: F Source: [facility] Order Comment: Specimen Type : BLOOD SPECIMEN Ordering Facility: [facility] Address: [address] [place] [address] TYPE CODE TESTS RESULT OUT OF RANGE REFERENCE UNITS LAB 6690-2(LOINC) WBC # Bld Auto 7.87 3.70-11.00 k/uL LAB 789-8(LOINC) RBC # Bld Auto 4.00 3.90-5.20 m/ uL LAB 718-7(LOINC) Hgb Bld-mCnc 11.7 11.5-15.5 g/dL LAB 4544-3(LOINC) Hct VFr Bld Auto 35.1 Low 36.0-46.0 % LAB 787-2(LOINC) MCV RBC Auto 87.8 80.0-100.0 fL LAB 785-6(LOINC) MCH RBC Qn Auto 29.3 26.0-34.0 pg LAB 786-4(LOINC) MCHC RBC Auto-mCnc 33.3 30.5-36.0 g/dL LAB 00066-4(LOINC) RDW RBC-Rto 13.7 11.5-15.0 % LAB 777-3(LOINC) Platelet # Bld Auto 177 150-400 k/uL LAB 24113-4([facility]) PMV Bld Auto 10.6 9.0-12.7 fL LAB 771-6([facility]) nRBC # Bld Auto <0.01 <0.01 k/uL Performed By: #### 72169-0 # ### [facility] CLIA [id number] [address] THERAPY NT Observed: 10/26/2024 1:37 PM Status: COMPLETED Source: [facility] HNO ID: [id number] Author: NATO HARPER, PT Service: Physical Therapy Author Type: Circle Edger Type: Therapy (PT/OT/Speech/Resp) Filed: 10/26/2024 16:13 Note Text: Attestation signed by Nato Harper, PT at 10/26/2024 4:13 PM I reviewed and agree with the documentation corresponding to this therapy visit. SIGNATURE: Nato Harper PT DATE: October 26, 2024 TIME: 4:13 PM Physical Therapy Treatment Summary SERVICE DATE: 10/26/2024 SERVICE TIME: 1302 to 1328 ROOM: [place] [id number] PT 6 Clicks Score: 12 DISCHARGE RECOMMENDATIONS Subacute/SNF Recommended Discharge Disposition Due to: Functional deficits requiring ongoing therapy service prior to discharge home., Functional status decline, Requires multiple therapy disciplines ASSESSMENT Response to Therapy Interventions: Cognitive Deficits, Good Participation in Activities Patient continues to require increased levels of assistance with all mobility tasks. Patient able to come to standing and take side steps EOB--distance limited by medical lines. Patient continues to be well below baseline functioning at this time. Patient continues to be recommended for subacute/SNF to improve strength, balance, endurance, increased ambulation distances with normalize gait pattern, and increased independence with functional task performance/mobility to prior level of function. Additional personnel present during visit: Maria G Zacarias PRECAUTIONS Bed/Chair Alarm, Fall Risk, Lines/Tubes/Drains, Total Knee Replacement, Weight Bearing Restrictions Left Lower Extremity Weight Bearing Status: WBAT CURRENT HOSPITAL COURSE presented for L TKA. Confusion note increased during PT session on tue10/25/23 and SpO2 in the 60% range. Rapid called and pt was adminiserred narcan. Transferred to CVICU for treatment. Pt continues with confusion. Relevant Past Medical History: R femur fx s/p fixation, CKD, DM, depression, PABLO, R [place], L knee OA HOME LIVING Patient Lives With: Family Assistance Available: Part-Time Entry To Home: Stairs, With Rail Number Of Stairs Into Home: 3 Number Of Stairs To Bed/Bath: 0 Tub/Shower Type: tub shower Laundry: family can complete Equipment Owned: Walker- Wheeled, Cane, Shower Chair, Grab Bars- Shower, Finish Mender PRIOR FUNCTIONAL LEVEL Required Assistance Assistance Required With: Shopping, Transportation ambulates with wh walker; family takes care of household tasks SUBJECTIVE confused, agreeable to PT session THERAPY DIAGNOSIS Reduced mobility-other, Muscle Weakness (generalized), Unsteadiness on feet, Abnormalities of gait and mobility-other TREATMENT INTERVENTIONS Therapeutic Exercise (61341), Therapeutic Activity (71193) Therapeutic Exercise (65263) Treatment Minutes: 13 $ Therapeutic Exercise (47601) Billed Units: 1 unit Patient completed left total knee arthroplasty protocol (ankle pump, quad set, gluteal set, heel slide, hip abd/add, straight leg raise, short arc quad, long arc quad) x 12reps with moderate amount of assist. Patient demonstrated poor quad control with exercises. Patient demonstrates 4 to 45 of ROM to left knee heel slides. Ice applied to surgical knee and elevated on pillow and/or with foot of bed elevated. Therapeutic Activity (45315) Treatment Minutes: 13 $ Therapeutic Activity (43223) Billed Units: 1 unit cuing/assist for proper movements/techniques with bed mobility, scooting, transfers, and side stepping EOB. Positioned for comfort at end of session. Bed alarm on, all needs in reach, curtain open, so staff can see patient clearly. Timed Code Treatment (minutes): 26 Skilled Treatment Time (minutes): 26 TRAINING AND EDUCATION PROVIDED Assistive Device Use, Bed Mobility, Exercise Program, Gait Pattern, Reduction of Deviations, Positioning, Transfers THERAPEUTIC SKILLS USED Cues for Sequencing/Proper Technique for Activity, Cuing Tactile, Cuing Verbal, Cuing Visual, Facilitation of Joint Range of Motion, Movement Facilitation, Physical Assist, Postural Alignment Correction FUNCTIONAL STATUS mobility performed during session in bold, other mobility completed during prior session and may no longer be correct or appropriate to complete. Bed Mobility Supine To Sit: Moderate Assistance HOB at 30 degrees, cuing for proper movements, assist with trunk/LEs via long sit pivot Sit to Supine: Maximal Assistance via reverse long sit pivot--assist with trunk/LEs Scooting: Maximal Assistance, Additional Information with draw sheet to HOB in supine Transfers Sit To Stand: Minimal Assistance, Additional Information cuing for proper UE support, powering up with LEs, assist to boost Stand To Sit: Minimal Assistance assist squaring up to seated surface, proper UE support and with eccentric control Bed to Chair Gait Minimal Assistance, Additional Information cuing for proper posture, step length, assist with walker management Gait Device: Wheeled Walker General Deviations/Observations: Antalgic gait, Elvia decreased, Flexed trunk posture, Narrow Base of Support, Non-functional gait speed, Shuffling Gait, Step length decreased, UE weight bearing on assistive device excessive Gait Distance (feet): couple right side steps-distances limited by multiple medical lines Stairs BALANCE Static Sitting Balance: Good Dynamic Sitting Balance: Good Static Standing Balance: Fair Dynamic Standing Balance: Fair GOALS Transfer Supine to/from Sit with: Contact Guard Assistance Transfer Sit to/from Stand with: Contact Guard Assistance Ambulate with: Contact Guard Assistance Distance: 20'x2 Device: Wheeled Walker Goal: x12 reps L TKA protocol exercises Rehab Potential: Good Progress Toward Goals: Progressing slower than expected ACUTE CARE TREATMENT PLAN PT Frequency: Twice Daily Treatment Interventions: Education, Joint Mobility, Strengthening, Functional Mobility Training, Balance Training Plan for Next Visit: Continue per POC SIGNATURE: Dedrick Portillo PTA PATIENT NAME: Audra Archer DATE: October 26, 2024 TIME: 1:37 PM CTA CHEST (NON GATED) W IVCO N PE Observed: 10/26/2024 11:26 AM Status: F Source: [facility] * * *Final Report* * * DATE OF EXAM: Oct 26 2024 11:26AM [facility] 0564 - CTA CHEST (NON GATED) W IVCON PE / PROCEDURE REASON: Pulmonary embolism (PE) suspected, high prob * * * * Physician Interpretation * * * * EXAMINATION: CHEST CTA (NON GATED) WITH CONTRAST (PULMONARY EMBOLISM PROTOCOL) Clinical History: High clinical probability of pulmonary embolism. Recent joint replacement surgery Technique: Spiral CT acquisition of the chest from the thoracic inlet to the upper abdomen following IV contrast. Axial 1 and 3 mm thick slices plus coronal and sagittal reformatted images. MQ: CTCP_5 Contrast: 100 mL Omnipaque [address] Radiation dose: Integrated Dose-length product (DLP) for this visit = 365 mGy*cm CT Dose Reduction Employed: Automated exposure control(AEC) and iterative recon CTA: Post-processed images (Maximum intensity Projection (MIP), Volume-rendered (VR), or Surface shaded display images (SSD) were created, reviewed and archived. Comparison: No relevant prior studies available. RESULT: Limitations: None. Evaluation for thromboembolic disease: - Right heart chambers: No thromboembolic disease. - Main pulmonary arteries: No thromboembolic disease. - Lobar pulmonary arteries: No thromboembolic disease. - Segmental pulmonary arteries: No thromboembolic disease. - Subsegmental pulmonary arteries: No thromboembolic disease. - Additional pulmonary artery findings: The main pulmonary artery is normal in caliber. Lines, tubes, and devices: None. Lung parenchyma and airways: At the right middle lobe, there is a solid 6 mm spherical nodule on image 6:162. Left upper lobe calcified granuloma. No active infiltrates Pleural space: No pleural effusion. No pleural thickening. Lower neck, lymph nodes, and mediastinum: The imaged thyroid gland is normal. No lymphadenopathy in the supraclavicular, axillary, mediastinal, or hilar regions. Heart, pericardium, and thoracic vessels: Coronary arterial atherosclerotic calcification. Heart is not enlarged. Thoracic aorta is normal in caliber. Bones and soft tissues: Partially visualized cervical spinal fusion. Diffuse osteopenia Upper abdomen: Status post cholecystectomy. Possible hepatic steatosis. Localizer images: No additional findings. IMPRESSION: 1. No CT evidence of pulmonary embolism. 2. 6 mm right middle lobe nodule. 3. Finding: Solid: 6-8 mm (solitary nodule). Incidental Finding: Follow-up Acuity: Incidental Finding: Solid: 6-8 mm (solitary nodule) Routing Code: RI_1 Recommendation: CT Chest WO IVCON Time Frame: 6-12 months Comments: If stable on follow-up imaging, a repeat chest CT exam in 12 months (18-24 months from the initial exam) is recommended --END OF FINDING-- Systems Management Consultant: HARITHA Transcribe Date/Time: Oct 26 2024 11:35A Dictated by : WANDA HEALY MD This examination was interpreted and the report reviewed and electronically signed by: WANDA HEALY MD on Oct 26 2024 11:40AM EST [id number] [facility]ABLE [facility]IED HEALTH Observed: 10/26/2024 11:24 AM Status: COMPLETED Source: [facility] HNO ID: [id number] Author: EVERETTE PADILLA RT(Izzy) Service: Radiology Author Type: Design Technician Type: Allied Health Filed: 10/26/2024 11:24 Note Text: Radiology Service Progress Note DATE OF SERVICE: October 26, 2024 TIME: 11:24 AM PATIENT IDENTITY VERIFICATION COMPLETED USING TWO (2) STANDARD IDENTIFIERS: Name and Date of confirmed by patient verbally and Name and Date of confirmed by identification band. FALL SCREENING: Has the patient had 2 falls in the last year or 1 fall with injury or currently using an Ambulatory Assistive Device (Walker, Cane, Wheelchair, Crutches, etc.)? Inpatient: Screened on floor PATIENT GENDER DATA: Assigned female at . status: : No status: NO. PATIENT RELEVANT IMPLANT DATA REVIEWED: Not Applicable PATIENT PRESENTS WITH AN IMPLANTABLE OR ATTACHED AUTOMOBILE CONTRACT CLERK: No ALLERGIES: Reviewed and unchanged CONTRAST ALLERGY: NO. EXAM: CT -CONTRAST INDUCED NEPHROPATHY RISK FACTORS: Patient age > 60 years CREATININE: Creatinine Date Value Ref Range Status 10/26/2024 0.92 0.58 - 0.96 mg/dL Final 10/25/2024 1.12 (H) 0.58 - 0.96 mg/dL Final 10/24/2024 1.03 (H) 0.58 - 0.96 mg/dL Final Estimated Glomerular Filtration Rate Date Value Ref Range Status 10/26/2024 63 >=60 mL/min/1.73m? Final Comment: Estimated Glomerular Filtration Rate (eGFR) is calculated using the 2020 CKD-EPI creatinine equation. This equation utilizes serum creatinine, sex, and age as parameters. The creatinine assay has traceable calibration to isotope dilution-mass spectrometry. Refer to KDIGO guidelines for clinical interpretation. In patients with unstable renal function, e.g. those with acute kidney injury, the eGFR may not accurately reflect actual GFR. P.O.C.T. RESULTS: POC done: Yes, See Lab Tab October 26, 2024 TREATMENT: N/A and No Hydration needed. PERIPHERAL IV DATA: Inpatient - refer to LDA documentation RADIOLOGY DEPARTMENT: CT; Exam(s) Completed: PE Study SIGNATURE: RT Danyelle(R) PATIENT NAME: Audra Archer DATE: October 26, 2024 TIME: 11:24 AM PLAN OF CARE Observed: 10/26/2024 11:18 AM Status: COMPLETED Source: [facility] HNO ID: [id number] Author: EILEEN BARKER APRN.CNP Service: Critical Care Author Type: Nurse Practitioner Type: Plan of Care Filed: 10/26/2024 11:18 Note Text: Called and updated daughter, Marry, of patient's current status and treatment plan. Answered all questions to family member satisfaction and encouraged to call back with any further questions. Eileen Barker APRN.CNP PLAN OF CARE Observed: 10/26/2024 11:00 AM Status: COMPLETED Source: [facility] HNO ID: [id number] Author: ?, ?, ? Service: Pharmacy Author Type: Design Technician Type: Plan of Care Filed: 10/26/2024 11:25 Note Text: PHARMACY MEDICATION REVIEW Patient Name: Audra Archer : 1945 The following medications were updated within the [employer] medication list: Medications ADDED to [employer] medication list Medications CHANGED on [employer] medication list Medications REMOVED from [employer] medication list Cetirizine (ZYRTEC) 10 mg cap Adjust Sig - Block E-Cancel Menthol-Zinc Oxide (CALMOSEPTINE) 0.44-20.6 % Adjust Sig - Block E-Cancel Additional comments: Verified medication information with e-scripts/dispense report and chart review. Confirmed medications with patient. Patient stated no longer taking cetirizine and Calmoseptine - removed from med list. Patient stated taking lispro TID but does not recall how many units. Patient stated taking Toujeo at HS 60 units. Required follow up actions for nursing: None The below information represents the best possible medication history: Yes Medication history completed by: Design Technician: Britta Caraballo (Mailmaster) Source of history: Patient: Reliability of source: Appears reliable, clearly identified: Medication name, Medication dose, Medication route, and Medication frequency, Pharmacy records: e-scripts/dispense report, and [facility] records Medication nonadherence identified: No barriers noted Reconciliation completed: No, pharmacist not yet reviewed Patient interested in Bedside Delivery Services or using CC OP Pharmacy at discharge? Unable to assess Preferred outpatient pharmacy: [facility] [address] [place] [id number] [address] [place] [phone] [id number] [facility] Allergies: Ciprofloxacin GI Upset, Other: See Comments Comment:Convulsions Metformin Hives, Vomiting Qzwyjuk-Zwq-Iff Red* Hives Sulfa (Sulfonamide * Anaphylaxis, Other: See Comments, Unknown Baclofen Other: See Comments Comment:Could not function Codeine Mental Status Change Comment:hallucinations Neosporin [Benzalko* Rash [place] Unknown Tetanus And Diphthe* Other: See Comments Comment:Dizziness, syncope Prior to Admission Medications Prescriptions Last Dose Informant Patient Reported? Taking? LOW-DOSE ASPIRIN ORAL 10/19/2024 Yes No Si mg once daily. Magnesium Chloride 71.5 mg TbEC 10/21/2024 Yes Yes Sig: Take 1 tablet by mouth daily at bedtime. TOUJEO MAX U-300 SOLOSTAR 300 unit/mL (3 mL) inpn 10/20/2024 Yes Yes Sig: Inject 60 Units subcutaneously daily at bedtime. acetaminophen (TYLENOL) 325 mg tablet No Yes Sig: Take 2 tablets by mouth every 6 hours as needed for pain. buprenorphine (BUTRANS) 20 mcg/hour transdermal patch 10/20/2024 Yes Yes Si patch one time a week. Patch put on sat 10/20/24 carvedilol (COREG) 6.25 mg tablet 10/21/2024 Yes Yes Sig: Take 6.25 mg by mouth two times a day with meals. citalopram hydrobromide (CELEXA) 10 mg tablet 10/21/2024 Yes Yes Sig: Take 10 mg by mouth once daily. insulin lispro (HUMALOG U-100 INSULIN) 100 unit/mL injection 10/21/2024 Yes Yes Sig: Inject 5-10 Units subcutaneously three times a day before meals. Based in glucose level isosorbide mononitrate ER (IMDUR) 30 mg 24 hr tablet 10/21/2024 Yes Yes Sig: Take 30 mg by mouth once daily. nitroglycerin sublingual (NITROQUICK) 0.4 mg SL tablet Yes Yes Sig: Dissolve 0.4 mg under the tongue every 5 minutes as needed for chest pain. nystatin (MYCOSTATIN) powder Yes Yes Sig: APPLY EXTERNALLY TWICE DAILY omeprazole (PRILOSEC) 40 mg capsule 10/21/2024 Yes Yes Sig: Take 40 mg by mouth two times a day. pregabalin (LYRICA) 150 mg capsule 10/21/2024 Yes Yes Sig: Take 150 mg by mouth three times daily. Facility-Administered Medications: None Britta Caraballo (Mailmaster)[id number] 10/26/2024 PROGRESS Observed: 10/26/2024 10:38 AM Status: COMPLETED Source: [facility] HNO ID: [id number] Author: GURPREET RODRIGES DO Service: Critical Care Author Type: Physician Type: Progress Notes Filed: 10/26/2024 10:45 Note Text: CRITICAL CARE PROGRESS NOTE SERVICE DATE: October 26, 2024 Admission Date: 10/22/2024 AGE: [age] year old LOS: 3 days Plan of care rounds were performed and the ICU checklist was reviewed and completed. ICU Checklist Last Documented/Reviewed time: 10/26/2024 7:53 AM ICU Consent Complete?: No ICU Code Status History assess/Full code by default: No, active code status present A= Assess, Prevent, Manage Pain Pain adequately controlled?: Yes C= Choice of Sedation and Analgesia RASS at Goal?: Yes B= Both Spontaneous Awakening and Breathing Trials Ventilator: None D= Delirium: Assess, Prevent and Manage ICU Delirium Status: CAM Positive - existing, continue interventions Sleep adequate?: Yes Restraint Status: None E= Early Mobility/Excercise ICU Mobility: ICU Mobility Goal: Bed rest/turns only, Head of bed 60 degrees F= Family Engagement and Empowerment ICU plan of care visit at bedside in last 24 hours: Yes, Provider, RN, Patient/ designee ICU Disposition: ICU Disposition-POC Detail: To be determined Prevention: Line Status: None Knight Status: Present, still need today Pressure Injury Status: None GI/Stress Ulcer Prophylaxis: PPI Nutrition is at Goal: NPO VTE Prophylaxis: Chemoprophylaxis: Other - Specify (Comment: ASA s/p knee replacement) Subjective Objective PROBLEMS: ACTIVE PROBLEM LIST Intertrochanteric Fracture of Right Femur, Closed, Initial Encounter ([facility]) Obesity, Class II, Bmi 35-39.9 Anemia, Unspecified Stage 3b Chronic Kidney Disease ([facility]) Hypertension Hyperlipidemia Gastroesophageal Reflux Disease Controlled Type 2 Diabetes Mellitus Without Complication, With Long-Term Current Use of Insulin ([facility]) Depressive Disorder Pain in Right Hip Stage 3 Chronic Kidney Disease ([facility]) Arteriosclerosis of Coronary Artery Class 1 Obesity Due to Excess Calories With Body Mass Index (Bmi) of 34.0 to 34.9 in Adult Pablo (Obstructive Sleep Apnea) Tobacco Abuse Status Post Total Hip Replacement, Right Primary Osteoarthritis of Left Knee Preop Examination Status Post Total Knee Replacement, Left Acute Respiratory Failure With Hypoxia and Hypercapnia ([facility]) Acute Metabolic Encephalopathy Somnolence Other Chronic Pain Delirium PAST MEDICAL HISTORY Diagnosis Date Angina pectoris Chronic kidney disease, stage 3b (HCC) Coronary arteriosclerosis Depression GERD (gastroesophageal reflux disease) HLD (hyperlipidemia) HTN (hypertension) Neuropathy bilateral feet Obesity PABLO (obstructive sleep apnea) Primary osteoarthritis of left knee Right hip pain Tobacco abuse 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 PAST SURGICAL HISTORY Procedure Laterality Date APPENDECTOMY 1955 L'SCOPE CHOLECYSTECTOMY LIGATE FALLOPIAN TUBE PAST SURGICAL HISTORY OF C5 and C6 fusion with titanium PAST SURGICAL HISTORY OF Right 02/06/2024 right [place] TOTAL ABDOM HYSTERECTOMY TX INTER/NY/SUBTRCHNTRIC FEMORAL FX SCREW IMPLT Right 11/07/2021 Social History Tobacco Use Smoking status: Former Current packs/day: 0.00 Average packs/day: 3.0 packs/day for 45.0 years (135.0 ttl pk-yrs) Types: Cigarettes Start date: 12/1961 Quit date: 12/2006 Years since quittin.8 Smokeless tobacco: Never Vaping Use Vaping status: Never Used Substance Use Topics Alcohol use: Not Currently Drug use: Never VITAL SIGNS (last 24hrs min/max): Temp Av.6 ?C (99.7 ?F) Min: 37.3 ?C (99.1 ?F) Max: 37.8 ?C (100 ?F) Pulse Av.6 Min: 71 Max: 104 No data recorded Cuff BP Min: 101/89 Max: 181/73 Pain Level: 0 Vital signs reviewed. BP 160/72 Pulse 81 Temp (Src) 99.5 (Knight Thermistor) Resp 20 Ht 5' 5 (1.65m) Wt 213 lb 10 oz (96.9kg) SpO2 89% BMI 35.55 kg/(m2). O2 Therapy: Nasal Cannula, Liters (Numeric Only): 5 Temp (24hrs), Av.6 ?C (99.7 ?F), Min:37.3 ?C (99.1 ?F), Max:37.8 ?C (100 ?F) NET FLUID BALANCE Intake/Output Summary (Last 24 hours) at 10/26/2024 1038 Last data filed at 10/26/2024 0800 Gross per 24 hour Intake -- Output 2055 ml Net -2055 ml MEDICATIONS Current Facility-Administered Medications Medication Dose Route Frequency labetalol 5 mg injection syringe (NORMODYNE) 5 mg INTRAVENOUS q 4 H PRN lactated ringers iv infusion 75 mL/hr INTRAVENOUS CONTINUOUS iv contrast (radiology procedure) INTRAVENOUS DIRECTED PRN lidocaine 4 % 1 patch (SALONPAS) 1 patch TRANSDERMAL DAILY And lidocaine patch - REMOVE OTHER AT BEDTIME And lidocaine - VERIFY PATCH OTHER q 8 H pregabalin 25 mg cap(s) (LYRICA) 25 mg ORAL BID senna-docusate 8.6-50 mg 1 tablet (SENNA-S) 1 tablet ORAL BID insulin glargine 12 Units injection (LANTUS SOLOSTAR, BASAGLAR KWIKPEN) 12 Units SUBCUTANEOUS AT BEDTIME insulin lispro injection (rapid acting) (ADMElog) SUBCUTANEOUS q 6 H carvedilol 6.25 mg tab(s) (COREG) 6.25 mg ORAL BID w MEALS citalopram hydrobromide 10 mg tablet (CeleXA) 10 mg ORAL DAILY isosorbide mononitrate ER 30 mg tab(s) (IMDUR) 30 mg ORAL DAILY nitroglycerin sublingual 0.4 mg tab(s) (NITROQUICK) 0.4 mg SUBLINGUAL q [address] 40 mg tab(s) (PROTONIX) 40 mg ORAL BID ondansetron 4 mg tab(s) (ZOFRAN) 4 mg ORAL q 6 H PRN Or ondansetron (PF) 4 mg injection (ZOFRAN) 4 mg INTRAVENOUS q 6 H PRN magnesium hydroxide 400 mg/5 mL 30 mL (MOM) 30 mL ORAL DAILY PRN bisacodyl EC 10 mg tab(s) (DULCOLAX) 10 mg ORAL DAILY aluminum-magnesium hydroxide-simethicone 200-200-20 mg/5 mL 30 mL 30 mL ORAL q 2 H PRN ascorbic acid (vitamin C) 500 mg tab(s) (VITAMIN C) 500 mg ORAL BID w MEALS aspirin, enteric coated 81 mg tab(s) 81 mg ORAL BID NaCl 0.9% iv flush bag 20 mL INTRAVENOUS PRN acetaminophen 1,000 mg tab(s) (TYLENOL) 1,000 mg ORAL q 8 H dextrose 15 gram/32 mL 15 g (TRUEPLUS) 15 g ORAL PRN Or glucagon 1 mg injection 1 mg INTRAMUSCULAR PRN Or dextrose 10% iv bolus 12.5 g INTRAVENOUS PRN magnesium lactate ER 84 mg tab(s) (MAGTAB) 84 mg ORAL AT BEDTIME Lines, Drains, and Airways Line Duration Peripheral 10/24/[address] [facility] Short Right Forearm 22 Gauge 2 days Peripheral 10/24/24 1800 Short Right Hand 22 Gauge 1 day Peripheral 10/26/[address] [facility] Right Forearm 20 Gauge <1 day Drain Duration Indwelling Urinary Catheter 10/24/[address] [facility] Knight 16 Fr 1 day PHYSICAL EXAM PERFORMED: General: no acute distress Cardiovascular: Irregular rhythm Respiratory: Clear to auscultation Abdomen: Soft and Nontender Extremities: Edema- No Neurologic: Follows commands, Moving all extremities, and Confused Respiratory/Nursing Documentation: O2 Therapy: Nasal Cannula (10/26/24 1000) HEMODYNAMIC DATA: Reviewed NUTRITION: Enteral Feeds: Yes Regular diet DATA: Diagnostic tests reviewed for today's visit, films/specimens were personally reviewed by me: Most recent labs and imaging results. LABS: Recent Labs 10/26/24 0419 WBC 8.50 RBC 4.26 HB 12.3 HCT 38.1 MCV 89.4 PLT 162 GLUC 94 BUN 17 CREAT 0.92 NA 135* K 4.5 CHLOR 97* CO2 31* CA 9.3 ABG: Invalid input(s): [id number] CT brain 10/25 IMPRESSION: No acute intracranial findings. IMPRESSION: 79F with PMHx CAD, type II DM, CKD stage III, PABLO not on CPAP, GERD, HLD, HTN, OA and chronic pain admitted for planned L TKA on 10/22 somnolent on RNF, found to be in hypercapnic respiratory failure and transferred to MICU for BiPAP Acute hypoxic and hypercapnic respiratory failure Somnolence, improving 2/2 hypercapnia Acute metabolic encpehalopathy Delirium POD # s/p L TKA PABLO not on CPAP Type II DM CKD stage III HTN Chronic pain MMP Continue ICU care Blood gas improving and no longer hypercapnic. Would encourage nocturnal NIPPV, however, she has been refusing attempts Hypoxic overnight and into AM, PABLO vs atelectasis vs PE. She refused DVT US yesterday after multiple attempts. Would pursue CT chest to rule out PE. Delirium still present, however she is directable. Concern would be for oral intake and refusal of medications. Corpak as last resort as she would likely remove. PRN hypertensive agents CT brain 6/5 no acute abnormalities Ok with bedside swallow but refusing PO intake, ok for carb control diet, would start supplemental IVF Urinalysis no concern for infection Removed butrans patch 10/24, resume home lyrica at lower dose however patient refusing to take medications Bowel regimen Monitor HR / BP. Continue supplemental O2, wean as tolerated to saturation > 90% Encourage incentive spirometer and Acapella PT/OT Monitor electrolytes. Keep K >4, Mg >2, Po4 >2.5 Resume home medications as tolerated Ensure BG control as indicated; goal <180 but avoid Hypoglycemia. Adjustments made to long acting DVT prophylaxis; aspirin BID per ortho. GI prophylaxis; continue home omperazole This patient has a high probability of sudden, clinically significant deterioration, which requires the highest level of physician preparedness to intervene urgently. I managed/supervised life or organ supporting interventions that required frequent physician assessment. I devoted my full attention to the direct care of this patient for the amount of time indicated below. Time I spent with family or surrogate(s) is included only if the patient was incapable of providing the necessary information or participating in medical decision making. Time devoted to teaching is not included. Discussed with staff/patient/family Time spent providing critical care services: 35 minutes excluding procedures. Portions of this note including HPI, ROS, impression/plan, and examination may have been copied forward from 10/25, as to provide important historical information essential in contributing to medical decision making. Documentation has been reviewed and edited as necessary to support clinical decision making for today's visit and to reflect my own independent evaluation of this patient. SIGNATURE: Gurpreet Rodriges DO PATIENT NAME: Audra Archer DATE: October 26, 2024 TIME: 10:38 AM CASE MANAGEM Observed: 10/26/2024 10:21 AM Status: COMPLETED Source: [facility] HNO ID: [id number] Author: YUMIKO RICHARDS RN Service: Care Management Author Type: Registered Nurse Type: Care Mgt Progress Note Filed: 10/26/2024 10:29 Note Text: CARE MANAGEMENT PROGRESS NOTE SERVICE DATE: 10/26/2024 SERVICE TIME: 10:21 AM LOS: 3 days Needs Prior to Discharge: OT/PT Evaluation, Precertification, Discharge Transportation Rounded In unit with multidisc team s/p CORK WIRER to cvic for resp failure and bipap. Currently on 5lnc. No family present Pt remains confused. Prior to admit was living at home alone. Nok dght Marry YOUNG. Her and granddght Skylar updated yesterday. Dc plan: prior acceptance and auth for [facility] and auth good 10/24 to 10/26. Not medically ready per icu team. CM WILL PUT IN FOR EVALS and reauth likely Tuesday. Facility updated via careport. Transport: cot and dsch packet at chart box SIGNATURE: Yumiko Richards RN PATIENT NAME: Audra Archer DATE: October 26, 2024 TIME: 10:21 AM ECG COMPLETE Observed: 10/26/2024 9:04 AM Status: F Source: [facility] Ventricular Rate : 81 BPM Atrial Rate : 81 BPM P-R Interval : 178 ms QRS Duration : 128 ms Q-T Interval : 408 ms QTC Calculation(Bazett) : 473 ms Calculated P Clifton : 54 degrees Calculated R Clifton : 12 degrees Calculated T Clifton : 91 degrees SINUS RHYTHM WITH PREMATURE ATRIAL COMPLEXES LEFT BUNDLE BRANCH BLOCK ABNORMAL ECG WHEN COMPARED WITH ECG OF 05-Nov-2021 21:22, PREMATURE ATRIAL COMPLEXES ARE NOW PRESENT Confirmed by MD TOBAR DAVID ([id number]) on 10/26/2024 12:25:41 PM NAME : AUDRA ARCHER PID : [id number] : 1945 Gender : Female Race : ORD : [id number] Procedure Date : Oct 26 2024 09:04:59 Edit Date : Oct 26 2024 12:25:44 Diagnosis: SINUS RHYTHM WITH PREMATURE ATRIAL COMPLEXES LEFT BUNDLE BRANCH BLOCK ABNORMAL ECG WHEN COMPARED WITH ECG OF 05-Nov-2021 21:22, PREMATURE ATRIAL COMPLEXES ARE NOW PRESENT Confirmed by MD TOBAR DAVID ([id number]) on 10/26/2024 12:25:41 PM Test Reason : Arrhythmia Location : 200 : [facility] 3239 Overread By : MD TOBAR DAVID Edited By : MD TOBAR DAVID Referred By : NASH MANZANARES Acquired by : ELLEN PABLO PROGRESS Observed: 10/26/2024 5:45 AM Status: COMPLETED Source: [facility] HNO ID: [id number] Author: NASH MANZANARES MD Service: Orthopaedic Surgery Author Type: Physician Type: Progress Notes Filed: 10/26/2024 08:13 Note Text: I evaluated the patient and personally participated in the richards components. I agree with the resident's findings and plan as documented and have discussed the case and management of the patient's care with the resident. Appreciate medical team and continued supportive care Signature: Nash Manzanares MD Service Date: 10/26/2024 Service Time: 8:12 AM Orthopaedic Surgery Inpatient Progress Note Assessment Audra Archer is a 79 year old female who is POD #4 status-post L TKA. Plan -Pain control -Weight Bearing As Tolerated LLE -Dressing management - Mepilex X7 days -Reg diet -PT/OT patient has Rehab bed at [facility] until 10/26, will need new eval if still inpatient tomorrow -DVT ppx: Aspirin 81mg BID -Post op Abx 2g AncefX2 doses -D/C planning: Rehab at [facility] -mgmt per ICU for respiratory distress -Follow up: With Dr. Manzanares in 10-14 days Subjective Transferred to ICU for respiratory issues. Saturating well on RA but has been desaturating to 60s overnight when she takes her BiPAP off. Continued delirium, Aox1. Denies significant pain or numbness/tingling to L knee. Physical Examination Vitals BP 150/61 Pulse 104 Temp 37.3 ?C (99.1 ?F) Resp 15 Ht 165.1 cm (5' 5) Wt 98.9 kg (218 lb 0.6 oz) SpO2 95% BMI 36.28 kg/m? General Alert and oriented. No acute distress. Cooperative with interview. Left Lower Extremity Dressing CDI SILT Galindo/Sa/DP/SP/T. Motor intact EHL/DF/PF. DP/PT pulses palpable; BCR all digits. Labs Recent Labs 10/26/24 0419 10/25/24 0932 10/25/24 0345 NA 135* -- 139 K 4.5 -- 4.8 CHLOR 97* -- 102 CO2 31* -- 30 BUN 17 -- 15 CREAT 0.92 -- 1.12* GLUC 94 -- 96 ANION 7* -- 7* CA 9.3 -- 9.0 WBC 8.50 -- 9.61 HB 12.3 -- 11.7 HCT 38.1 -- 38.0 PLT 162 -- 144* LACT 1.2 0.8 0.9 Imaging NNOI Jt Carrasco MD October 26, 2024 6:04 AM INPATIENT ATTENDING: Dr. Manzanraes, Nash Cole MD, Elective High-Risk Geriatric Patient Vulnerabilities: Impaired Functional Status and Impaired Mobility Diet: DIET NPO Recommendations: Cognition: No Cognitive Impairment bCAM Score (Calc): Positive Delirium Screen Confusion Assessment Method (CAM - ICU Score): (!) Positive Geriatric Consult (Age over 85 or impaired cognition):Consult not needed Palliative Care/Hospice: Consult not required Rehab/Therapy: PT/OT Recommendations: PT: Recommended Discharge Disposition: Subacute/SNF OT: Recommended Discharge Disposition: Subacute/SNF Swallow: Swallow Screening Result - Step 2: PASSED Swallow Screen - Patient Able To Swallow 3 Ounce Cup of Water Without Exhibiting Signs Of Aspiration Speech Recommendations: Speech: Speech Diet: Nutrition: Consult not required Nutrition Recommendations: MST: Total MST Score (Calculated): 0 Quality Consultant: Pharmacy: Consult not needed Social Work: NA Anticipated Discharge Disposition: BAS METAB 2000 PNL SERPL Collected: 10/2024 4:19 AM Status: F Source: [facility] Order Comment: Specimen Type : BLOOD SPECIMEN Ordering Facility: [facility] Address: [address] [place] [address] TYPE CODE TESTS RESULT OUT OF RANGE REFERENCE UNITS LAB 2345-7(LOINC) Glucose SerPl-mCnc 94 74-99 mg/dL Result Comment: The [place] Diabetes Association (ADA) provides guidance for cutoff values for fasting glucose and random glucose. The ADA defines fasting as no caloric intake for at least 8 hours. Fasting plasma glucose results between 100 to 125 mg/dL indicate increased risk for diabetes (prediabetes). Fasting plasma glucose results greater than or equal to 126 mg/dL meet the criteria for diagnosis of diabetes. In the absence of unequivocal hyperglycemia, results should be confirmed by repeat testing. In a patient with classic symptoms of hyperglycemia or hyperglycemic crisis, random plasma glucose results greater than or equal to 200 mg/dL meet the criteria for diagnosis of diabetes. Reference: Standards of Medical Care in Diabetes 2016, [place] [employer] Association. Diabetes Care. 2016.39(Suppl 1). LAB 3094-0(LOINC) BUN SerPl-mCnc 17 7-21 mg/ dL LAB 2160-0(LOINC) Creat SerPl-mCnc 0.92 0.58-0.96 mg/dL LAB 2951-2(LOINC) Sodium SerPl-sCnc 135 Low 136-144 mmol/L LAB 2823-3(LOINC) Potassium SerPl-sCnc 4.5 3.7-5.1 mmol/L LAB 2075-0(LOINC) Chloride SerPl-sCnc 97 Low 98-107 mmol/L LAB 2027-9(LOINC) CO2 SerPl-sCnc 31 High 22-30 mmo l/L LAB 1863-0(LOINC) Anion Gap4 SerPl-sCnc 7 Low 8-15 mmol/L LAB 69660-7(LOINC) Calcium SerPl-mCnc 9.3 8.5-10.2 mg/dL LAB 31278-6(LOINC) Creatinine + eGFR Pnl SerPlBld 63 >=60 mL/min/1. 73m??? Result Comment: Estimated Gl omerular Filtration Rate (eGFR) is calculated using the 2020 CKD-EPI creatinine equation. This equation utilizes serum creatinine, sex, and age as parameters. The creatinine assay has traceable calibration to isotope dilution-mass spectrometry. Refer to KDIGO guidelines for clinical interpretation. In patients with unstable renal function, e.g. those with acute kidney injury, the eGFR may not accurately reflect actual GFR. Performed By: #### [id number] # ### [facility] CLIA [id number] [address] [place] [address] [place] PNL BLDV Collected: 5 4:19 AM Status: F Source: [facility] Order Comment: Specimen Type : VENOUS BLOOD SPECIMEN Ordering Facility: [facility] Address: [address] [place] [address] TYPE CODE TESTS RESULT OUT OF RANGE REFERENCE UNITS LAB 2746-6(LOINC) pH BldV 7.41 7.32-7.42 LAB 33433-9(LOINC) pH temp adj BldV 7.40 7.32-7.42 LAB 2020-4(LOINC) pCO2 BldV 55 42-55 mmHg LAB 37421-0(LOINC) pCO2 temp adj BldV 56 High 42-55 mmHg LAB 2705-2(LOINC) pO2 BldV 86 High 35-45 mmHg LAB 57064-9(INC) pO2 temp adj BldV 87 High 35-45 mmHg LAB 2711-0([facility]) SaO2 % BldV 97 High 60-85 % LAB 1927-3(INC) Base excess BldV Calc-sCnc 8 High 0-2 mmol/L LAB 49756-3(INC) HCO3 BldV-sCnc 34 High 24-28 mmol/L LAB 2716-9([facility]) OxyHgb MFr BldV 94 High 60-85 % LAB 2032-1([facility]) COHgb MFr BldV 2.3 High 0.0-2.0 % Result Comment: Carboxyhemog lobin Reference Range for Smokers: 2.0-8.0% LAB 2614-6([facility]) MetHgb MFr Bld 0.7 0.0-1.5 % LAB 2947-0([facility]) Sodium Bld-sCnc 139 136-144 mmol/L LAB 6298-4([facility]) Potassium Bld-sCnc 4.5 3.5-5.0 mmol/L LAB CHLWBBG CHLORIDE WHOLE BLOOD 99 97-105 mmol/L LAB 27789-0([facility]) Ca-I BldV-mCnc 1.22 1.08-1.30 mmol/L LAB 19866-8([facility]) Ca-I adj pH7.4 BldA-sCnc 1.22 1.08-1.30 mmol/L LAB 2339-0([facility]) Glucose Bld-mCnc 97 60-105 mg/dL LAB 39215-8([facility]) Lactate Bld-sCnc 1.2 0.5-2.2 mmol/L LAB 718-7([facility]) Hgb Bld-mCnc 12.6 11.5-15.5 g/dL LAB 4544-3([facility]) Hct VFr Bld Auto 38.7 36.0-46.0 % LAB VTMP TEMPERATURE, BODY 37.3 C LAB VO2TH O2 THERAPY NC = Nasal Cannula Result Comment: 3 L Performed By: #### 06021-6 # ### [facility] CLIA [id number] [address] CBC PNL BLD AUTO Collected: 10/26/2024 4:19 AM Statu s: F Source: [facility] Order Comment: Specimen Type : BLOOD SPECIMEN Ordering Facility: [facility] Address: [place] [id number] TYPE CODE TESTS RESULT OUT OF RANGE REFERENCE UNITS LAB 6690-2([facility]) WBC # Bld Auto 8.50 3.70-11.00 k/uL LAB 789-8([facility]) RBC # Bld Auto 4.26 3.90-5.20 m/ uL LAB 718-7([facility]) Hgb Bld-mCnc 12.3 11.5-15.5 g/dL LAB 4544-3([facility]) Hct VFr Bld Auto 38.1 36.0-46.0 % LAB 787-2(INC) MCV RBC Auto 89.4 80.0-100.0 fL LAB 785-6([facility]) MCH RBC Qn Auto 28.9 26.0-34.0 pg LAB 786-4([facility]) MCHC RBC Auto-mCnc 32.3 30.5-36.0 g/dL LAB 18908-8([facility]) RDW RBC-Rto 13.0 11.5-15.0 % LAB 777-3([facility]) Platelet # Bld Auto 162 150-400 k/uL LAB 95404-4([facility]) PMV Bld Auto 9.9 9.0-12.7 fL LAB 771-6([facility]) nRBC # Bld Auto <0.01 <0.01 k/uL Performed By: #### 71636-8 # ### [facility] CLIA [id number] [address] BRAIN WO IVCON Observed: 10/25/2024 4:34 PM Status: F Source: [facility] * * *Final Report* * * DATE OF EXAM: Oct 25 2024 4:34PM [facility] 0504 - CT BRAIN WO IVCON / PROCEDURE REASON: Mental status change, unknown cause * * * * Physician Interpretation * * * * EXAMINATION: CT BRAIN WO IVCON CLINICAL HISTORY: Mental status change, unknown cause TECHNIQUE: Serial axial images without IV contrast were obtained from the vertex to the foramen magnum. MQ: CTBWO_3 CT Radiation dose: Integrated Dose-Length Product (DLP) for this visit = 845 mGy*cm CT Dose Reduction Employed: Iterative recon COMPARISON: None. RESULT: Localizer images: No additional findings. Post-operative change: None. Acute change: No evidence of an acute infarct or other acute parenchymal process. Hemorrhage: No evidence of acute intracranial hemorrhage. ECASS hemorrhagic transformation score: Not Applicable Mass Lesion / Mass Effect: There is no evidence of an intracranial mass or extraaxial fluid collection. No significant mass effect. Chronic change: Scattered patchy foci of low attenuation are present within the supratentorial white matter, a nonspecific finding that most commonly represents mild small vessel disease. Parenchyma: There is moderate generalized volume loss. The brain parenchyma is otherwise within normal limits for age. Ventricles: Ventricular enlargement concordant with the degree of parenchymal volume loss. Paranasal sinuses and skull base: The visualized paranasal sinuses are grossly clear. The skull base and imaged soft tissues are unremarkable. IMPRESSION: No acute intracranial findings. Systems Management Consultant: HARITHA Transcribe Date/Time: Oct 25 2024 4:37P Dictated by : RIAN ZIMMER MD This examination was interpreted and the report reviewed and electronically signed by: RIAN ZIMMER MD on Oct 25 2024 4:40PM EST [id number] ALLIED HEALTH Observed: 10/25/2024 4:33 PM Status: COMPLETED Source: [facility] HNO ID: [id number] Author: JONI VILLALTA RT(R) Service: Radiology Author Type: Design Technician Type: Allied Health Filed: 10/25/2024 16:33 Note Text: Radiology Service Progress Note PATIENT NAME: Audra Archer DATE OF SERVICE: October 25, 2024 TIME: 4:33 PM PATIENT IDENTITY VERIFICATION COMPLETED USING TWO (2) IDENTIFIERS: Name and Date of confirmed by patient verbally. FALL SCREENING: Has the patient had 2 falls in the last year or 1 fall with injury or currently using an Ambulatory Assistive Device (Walker, Cane, Wheelchair, Crutches, etc.)? Inpatient: Screened on floor PATIENT GENDER DATA: Assigned female at . status: : No status: NO. PATIENT RELEVANT IMPLANT DATA REVIEWED: Not Applicable PATIENT PRESENTS WITH AN IMPLANTABLE OR ATTACHED AUTOMOBILE CONTRACT CLERK: No RADIOLOGY DEPARTMENT: CT; Exam(s) Completed: Brain PERIPHERAL IV DATA: Not applicable SIGNED BY: RT Kady(R) October 25, 2024 4:33 PM THERAPY NT Observed: 10/25/2024 12:02 PM Status: COMPLETED Source: [facility] HNO ID: [id number] Author: NATO HARPER, PT Service: Physical Therapy Author Type: Physical Therapist Type: Therapy (PT/OT/Speech/Resp) Filed: 10/25/2024 12:07 Note Text: Physical Therapy Treatment Summary SERVICE DATE: 10/25/2024 SERVICE TIME: 1105 to 1120 ROOM: [place] [address] PT 6 Clicks Score: 11 DISCHARGE RECOMMENDATIONS Subacute/SNF Recommended Discharge Disposition Due to: Functional deficits requiring ongoing therapy service prior to discharge home., Functional status decline, Requires multiple therapy disciplines ASSESSMENT Response to Therapy Interventions: Cognitive Deficits, Limited Participation, Low Activity Tolerance Very confused, not oriented and resistant to all activities etc. Pt will need SNF at d/c PRECAUTIONS Bed/Chair Alarm, Fall Risk, Lines/Tubes/Drains, Total Knee Replacement, Weight Bearing Restrictions Left Lower Extremity Weight Bearing Status: WBAT CURRENT HOSPITAL COURSE presented for L TKA. Confusion note increased during PT session on tue10/25/23 and SpO2 in the 60% range. Rapid called and pt was adminiserred narcan. Transferred to CVICU for treatment. Pt continues with confusion. Relevant Past Medical History: R femur fx s/p fixation, CKD, DM, depression, PABLO, R [place], L knee OA HOME LIVING Patient Lives With: Family Assistance Available: Part-Time Entry To Home: Stairs, With Rail Number Of Stairs Into Home: 3 Number Of Stairs To Bed/Bath: 0 Tub/Shower Type: tub shower Laundry: family can complete Equipment Owned: Walker- Wheeled, Cane, Shower Chair, Grab Bars- Shower, Finish Mender PRIOR FUNCTIONAL LEVEL Required Assistance Assistance Required With: Shopping, Transportation ambulates with wh walker; family takes care of household tasks SUBJECTIVE confused. not aware that she had TKA, not aware of place or time. THERAPY DIAGNOSIS Reduced mobility-other, Muscle Weakness (generalized), Unsteadiness on feet, Abnormalities of gait and mobility-other TREATMENT INTERVENTIONS Therapeutic Activity (57980) Timed Code Treatment (minutes): 15 Skilled Treatment Time (minutes): 15 Therapeutic Activity (50732) Treatment Minutes: 15 $ Therapeutic Activity (82882) Billed Units: 1 unit Attempted L LE TKA exercises but patient unable to follow commands and didn't understand what doing. Patient needed max assist for very min knee ROM exercises. Sat edge of bed for majority of session with benefits gained of upright positioning. OOB not appropriate currently due to confusion and patient unable to safely follow commands. Patient did allow ~40degrees knee flexion in sitting. Tried to re-orient patient in sitting and she had no recall of place even after instructed. Patient stating no no no to most requests and questions TRAINING AND EDUCATION PROVIDED Bed Mobility, Benefits of In-Hospital Mobility, Positioning THERAPEUTIC SKILLS USED Activity Dosing, Assessment of Tolerance Including Vitals Response to Activity, Cues for Sequencing/Proper Technique for Activity, Cuing Tactile, Cuing Verbal, Cuing Visual, Movement Facilitation FUNCTIONAL STATUS mobility performed during session in bold, other mobility completed during prior session and may no longer be correct or appropriate to complete. Bed Mobility Supine To Sit: Moderate Assistance HOB at 30 degrees, assist with LEs via long sit pivot Sit to Supine: Maximal Assistance needed assist with bilateral LEs. Pt confusion appears to be the main limiting factor. Scooting: Maximal Assistance Transfers Sit To Stand: Additional Information Stand To Sit: Minimal Assistance, Additional Information axel appropriate to try today. Pt too confused Bed to Chair Gait Minimal Assistance, Additional Information Gait Device: Wheeled Walker Gait Distance (feet): 25'x2 Stairs GOALS Transfer Supine to/from Sit with: Contact Guard Assistance Transfer Sit to/from Stand with: Contact Guard Assistance Ambulate with: Contact Guard Assistance Distance: 20'x2 Device: Wheeled Walker Goal: x12 reps L TKA protocol exercises Rehab Potential: Good Progress Toward Goals: Progressing slower than expected ACUTE CARE TREATMENT PLAN PT Frequency: Twice Daily Treatment Interventions: Education, Joint Mobility, Strengthening, Functional Mobility Training, Balance Training Plan for Next Visit: Continue per POC SIGNATURE: Nato Harper PT PATIENT NAME: Audra Archer DATE: October 25, 2024 TIME: 12:02 PM CASE MANAGEM Observed: 10/25/2024 10:04 AM Status: COMPLETED Source: [facility] HNO ID: [id number] Author: YUMIKO RICHARDS, BILLY Service: Care Management Author Type: Registered Nurse Type: Care Mgt Progress Note Filed: 10/25/2024 10:38 Note Text: CARE MANAGEMENT PROGRESS NOTE SERVICE DATE: 10/25/2024 SERVICE TIME: 10:04 AM LOS: 1 day Needs Prior to Discharge: To Be Determined, Other: See Comment (have auth for skilled nsg at [facility] unit thru 10/26.) Transfer to CVIC (ICU overflow) for hypercapnic resp failure and required bipap. Currently on o2 2lnc. Pt not oriented. NOK dght Marry Francis is hcpoa and on file [phone] Spoke with her and updated and she will be in to visit today and RN/ICU team to update as well. Dc plan: [facility] able to accept. Auth is good 10/24-10/26. After 10/26 would need new evals and to resubmit precert. CM to follow Transport: cot and dsch packet at chart box SIGNATURE: Yumiko Richards RN PATIENT NAME: Audra Archer DATE: October 25, 2024 TIME: 10:04 AM GAS + CO PNL BLDV Collected: 9:32 AM Status: F Source: [facility] Order Comment: Specimen Type : VENOUS BLOOD SPECIMEN Ordering Facility: [facility] Address: [address] [place] [address] TYPE CODE TESTS RESULT OUT OF RANGE REFERENCE UNITS LAB 2746-6(LOINC) pH BldV 7.32 7.32-7.42 LAB 87847-7(LOINC) pH temp adj BldV 7.31 Low 7.32-7.42 LAB 2020-4(LOINC) pCO2 BldV 67 High 42-55 mmHg LAB 36005-2(LOINC) pCO2 temp adj BldV 69 High 42-55 mmHg LAB 2705-2(LOINC) pO2 BldV 58 High 35-45 mmHg LAB 99072-1(LOINC) pO2 temp adj BldV 62 High 35-45 mmHg LAB 2711-0(LOINC) SaO2 % BldV 89 High 60-85 % LAB 1927-3(LOINC) Base excess BldV Calc-sCnc 6 High 0-2 mmol/L LAB 73218-1(LOINC) HCO3 BldV-sCnc 33 High 24-28 mmol/L LAB 2716-9([facility]) OxyHgb MFr BldV 87 High 60-85 % LAB 2032-1([facility]) COHgb MFr BldV 1.7 0.0-2.0 % Result Comment: Carboxyhemog lobin Reference Range for Smokers: 2.0-8.0% LAB 2614-6([facility]) MetHgb MFr Bld 0.8 0.0-1.5 % LAB 2947-0([facility]) Sodium Bld-sCnc 137 136-144 mmol/L LAB 6298-4([facility]) Potassium Bld-sCnc 4.6 3.5-5.0 mmol/L LAB CHLWBBG CHLORIDE WHOLE BLOOD 100 97-105 mmol/L LAB 59386-4([facility]) Ca-I BldV-mCnc 1.21 1.08-1.30 mmol/L LAB 72911-0([facility]) Ca-I adj pH7.4 BldA-sCnc 1.16 1.08-1.30 mmol/L LAB 2339-0([facility]) Glucose Bld-mCnc 101 60-105 mg/dL LAB 78407-0([facility]) Lactate Bld-sCnc 0.8 0.5-2.2 mmol/L LAB 718-7([facility]) Hgb Bld-mCnc 12.0 11.5-15.5 g/dL LAB 4544-3([facility]) Hct VFr Bld Auto 37.0 36.0-46.0 % LAB VTMP TEMPERATURE, BODY 37.8 C LAB VO2TH O2 THERAPY NC = Nasal Cannula Performed By: #### 69131-7 # ### [facility] CLIA [id number] [address] [place] [id number] [place] STAPHYLOCOCCUS AUREUS AND MR SA SCREEN, PCR, NASAL Collected: 10/25/2024 8:58 AM Status: F Source: [facility] Order Comment: Specimen Type : SWAB Ordering Facility: [facility] Address: [address] [place] [address] TYPE CODE TESTS RESULT OUT OF RANGE REFERENCE UNITS LAB 74148-8([facility]) SA+MRSA Pnl Nose ANUEL+probe Not Detected Not Detected Performed By: #### SAPCR ### # [facility] CLIA [id number] [address] [place] PROGRESS Observed: 10/25/2024 8:40 AM Status: COMPLETED Source: [facility] HNO ID: [id number] Author: FATOU RUBIN MD Service: Pain Management Author Type: Physician Type: Progress Notes Filed: 10/25/2024 16:32 Note Text: Name: AUDRA ARCHER Age: [age] year old PAIN MANAGEMENT: s/p Left TKA; chronic multifactorial pain, opiate dependent Pain Description: Patient tired/arousable. Pleasantly confused. Oriented x 1. Does not remember having surgery; does not remember events yesterday Interval HPI: Patient transferred to ICU yesterday for acute hypoxic hypercapnic respiratory failure, somnolence from hypercapnia. VBG pH 7.23, pCO2 76 yesterday patient received Narcan x 2 Issues with delirium today 10/25 ABG 7.26 pCO2 75 24H Comfort Meds: Butrans 20 mcg patch removed 10/24 Tylenol 1 g x 0 Oxycodone 10 mg x 1 discontinued Narcan 0.4 mg x 2 (at 1027 and 1535) Subjective HPI: 79-year-old female with history of debility, obesity BMI 36, PABLO (noncompliant with CPAP), CKD 3, insulin-dependent DM2 admitted 10/22 for left TKA. Patient had prior right [place]. Pain regimen before admission included Butrans 20 mcg weekly patch, Lyrica 150 mg 3 times daily On 10/24, patient received Narcan as noted above. Our team was asked to assist in pain management. Patient feels better when I saw her. Patient states she goes to Dr. Martin in [place] for pain management and her pain regimen includes Butrans 20 mcg patch; she is wearing patch on her right shoulder and to be changed on Tuesday. She also takes Lyrica 150 mg 3 times daily. She lives at home with her . OARRS Review: Reviewed, negative on PDMP. WIll review OARRS system Opiate dependent, Butrans 20 mcg weekly patch Current Facility-Administered Medications Medication Dose Route Frequency Provider Last Rate Last Admin lidocaine 4 % 1 patch (SALONPAS) 1 patch TRANSDERMAL DAILY Heike James PA-C 1 patch at 10/25/24 0904 And lidocaine patch - REMOVE OTHER AT BEDTIME Heike James PA-C And lidocaine - VERIFY PATCH OTHER q 8 H Heike James PA-C pregabalin 25 mg cap(s) (LYRICA) 25 mg ORAL BID Heike James PA-C senna-docusate 8.6-50 mg 1 tablet (SENNA-S) 1 tablet ORAL BID Heike James PA-C insulin glargine 12 Units injection (LANTUS SOLOSTAR, BASAGLAR KWIKPEN) 12 Units SUBCUTANEOUS AT BEDTIME Heike James PA-C insulin lispro injection (rapid acting) (ADMElog) SUBCUTANEOUS q 6 H Rachell Mcpherson MD carvedilol 6.25 mg tab(s) (COREG) 6.25 mg ORAL BID w MEALS Rachell Mcpherson MD 6.25 mg at 10/24/24 0835 citalopram hydrobromide 10 mg tablet (CeleXA) 10 mg ORAL DAILY Rachell Mcpherson MD 10 mg at 10/24/24 0836 isosorbide mononitrate ER 30 mg tab(s) (IMDUR) 30 mg ORAL DAILY Rachell Mcpherson MD 30 mg at 10/23/24 2125 nitroglycerin sublingual 0.4 mg tab(s) (NITROQUICK) 0.4 mg SUBLINGUAL q 5 MIN PRN Rachell Mcpherson MD pantoprazole DR 40 mg tab(s) (PROTONIX) 40 mg ORAL BID Rachell Mcpherson MD 40 mg at 10/24/24 0836 ondansetron 4 mg tab(s) (ZOFRAN) 4 mg ORAL q 6 H PRN Rachell Mcpherson MD Or ondansetron (PF) 4 mg injection (ZOFRAN) 4 mg INTRAVENOUS q 6 H PRN Rachell Mcpherson MD 4 mg at 10/25/24 1211 magnesium hydroxide 400 mg/5 mL 30 mL (MOM) 30 mL ORAL DAILY PRN Rachell Mcpherson MD bisacodyl EC 10 mg tab(s) (DULCOLAX) 10 mg ORAL DAILY Rachell Mcpherson MD 10 mg at 10/24/24 0835 aluminum-magnesium hydroxide-simethicone 200-200-20 mg/5 mL 30 mL 30 mL ORAL q 2 H PRN Rachell Mcpherson MD ascorbic acid (vitamin C) 500 mg tab(s) (VITAMIN C) 500 mg ORAL BID w MEALS Rachell Mcpherson MD aspirin, enteric coated 81 mg tab(s) 81 mg ORAL BID Rachell Mcpherson MD 81 mg at 10/24/24 0836 NaCl 0.9% iv flush bag 20 mL INTRAVENOUS PRN Rachell Mcpherson MD acetaminophen 1,000 mg tab(s) (TYLENOL) 1,000 mg ORAL q 8 H Rachell Mcpherson MD 1,000 mg at 10/24/24 0548 dextrose 15 gram/32 mL 15 g (TRUEPLUS) 15 g ORAL PRN Rachell Mcpherson MD Or glucagon 1 mg injection 1 mg INTRAMUSCULAR PRN Rachell Mcpherson MD Or dextrose 10% iv bolus 12.5 g INTRAVENOUS PRN Rachell Mcpherson MD magnesium lactate ER 84 mg tab(s) (MAGTAB) 84 mg ORAL AT BEDTIME Rachell Mcpherson MD 84 mg at 10/23/24 2124 Cetirizine (ZYRTEC) 10 mg cap, Take 10 mg by mouth once daily., Disp: , Rfl: , Taking nystatin (MYCOSTATIN) powder, APPLY EXTERNALLY TWICE DAILY, Disp: , Rfl: , Taking magnesium chloride (SLOW-MAG ORAL), Take 1-2 tablets by mouth daily at bedtime., Disp: , Rfl: , 10/21/2024 insulin lispro (HUMALOG U-100 INSULIN) 100 unit/mL injection, Inject 5-10 Units subcutaneously three times a day before meals. Based in glucose level, Disp: , Rfl: , 10/21/2024 buprenorphine (BUTRANS) 20 mcg/hour transdermal patch, 1 Patch one time a week., Disp: , Rfl: , Taking carvedilol (COREG) 6.25 mg tablet, Take 6.25 mg by mouth two times a day with meals., Disp: , Rfl: , 10/21/2024 citalopram hydrobromide (CELEXA) 10 mg tablet, Take 10 mg by mouth once daily., Disp: , Rfl: , 10/21/2024 isosorbide mononitrate ER (IMDUR) 30 mg 24 hr tablet, Take 30 mg by mouth once daily., Disp: , Rfl: , 10/21/2024 nitroglycerin sublingual (NITROQUICK) 0.4 mg SL tablet, Dissolve 0.4 mg under the tongue every 5 minutes as needed for chest pain., Disp: , Rfl: , Taking As Needed omeprazole (PRILOSEC) 40 mg capsule, Take 40 mg by mouth two times a day., Disp: , Rfl: , 10/21/2024 pregabalin (LYRICA) 150 mg capsule, Take 150 mg by mouth three times daily., Disp: , Rfl: , 10/21/2024 Menthol-Zinc Oxide (CALMOSEPTINE) 0.44-20.6 %, Apply to affected area two times a day as needed., Disp: 100 g, Rfl: 0 acetaminophen (TYLENOL) 325 mg tablet, Take 2 tablets by mouth every 6 hours as needed for pain., Disp: , Rfl: [Paused] LOW-DOSE ASPIRIN ORAL, 81 mg once daily., Disp: , Rfl: , 10/19/2024 TOUJEO MAX U-300 SOLOSTAR 300 unit/mL (3 mL) inpn, Inject 60 Units subcutaneously daily at bedtime., Disp: , Rfl: , 10/20/2024 DEXCOM G7 SENSOR beth, Inject 1 application subcutaneously as directed., Disp: , Rfl: Social History Tobacco Use Smoking status: Former Current packs/day: 0.00 Average packs/day: 3.0 packs/day for 45.0 years (135.0 ttl pk-yrs) Types: Cigarettes Start date: 12/1961 Quit date: 12/2006 Years since quittin.8 Smokeless tobacco: Never Vaping Use Vaping status: Never Used Substance Use Topics Alcohol use: Not Currently Drug use: Never FAMILY HISTORY Problem Relation Age of Onset Diabetes Mother Heart Mother Lung Cancer Mother PAST MEDICAL HISTORY Diagnosis Date Angina pectoris Chronic kidney disease, stage 3b (HCC) Coronary arteriosclerosis Depression GERD (gastroesophageal reflux disease) HLD (hyperlipidemia) HTN (hypertension) Neuropathy bilateral feet Obesity PABLO (obstructive sleep apnea) Primary osteoarthritis of left knee Right hip pain Tobacco abuse 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 PAST SURGICAL HISTORY Procedure Laterality Date APPENDECTOMY 1955 L'SCOPE CHOLECYSTECTOMY LIGATE FALLOPIAN TUBE PAST SURGICAL HISTORY OF C5 and C6 fusion with titanium PAST SURGICAL HISTORY OF Right 02/06/2024 right [place] TOTAL ABDOM HYSTERECTOMY TX INTER/NY/SUBTRCHNTRIC FEMORAL FX SCREW IMPLT Right 11/07/2021 ROS: All of the following reviewed and negative except as noted below: Significant per HPI GENERAL: no fever, chills, sweats, weight loss, fatigue, generalized weakness HEENT: no headache, vision changes, eye discomfort, hearing change, ear discomfort, sinus pain, nasal discharge or congestion, oral lesions, soreness, dental problem NECK: no adenopathy, discomfort, change in ROM CHEST: no shortness of breath, dyspnea on exertion, wheezing, cough, sputum production or chest pain HEART: no chest pain, palpitations, syncope ABDOMEN: no nausea, vomiting, constipation, diarrhea, abdominal pain : no dysuria, urgency, frequency, history of stones, incontinence NEURO: no confusion or alteration in consciousness, slurred speech, seizure, focal weakness EXTREMITIES: See HPI HEME: no new adenopathy, bruises, petechiae PSYCH: no depression, anxiety, agitation PHYSICAL EXAMINATION: GENERAL: Obese, tired; no acute distress; oriented x 1, limited judgement and insight HEENT: no evidence of trauma; eyes clear; no hearing deficits apparent; nasal passages unremarkable; throat and mucous membranes clear NECK: supple without lymphadenopathy; no JVD; no thyromegaly CHEST: clear bilaterally to auscultation; normal chest movement; no rales or rhonchi HEART: regular rate and rhythm, normal S1 and S2, no murmurs, clicks, rubs, or gallops ABDOMEN: soft; nondistended; bowel sounds present; no hepatomegaly; no splenomegaly; no tenderness EXTREMITIES: Left knee dressing intact NEURO: no focal deficits; no confusion; no tremor SKIN: no rash; no skin breakdown; no decubitus lesions HEME: no bruising; no adenopathy PSYCH: no evidence of depression; no anxiety; no agitation; no apparent hallucinations BP 148/54 Pulse 74 Temp 37.7 ?C (99.9 ?F) Resp 10 Ht 165.1 cm (5' 5) Wt 98.9 kg (218 lb 0.6 oz) SpO2 99% BMI 36.28 kg/m? BMI 36.28 kg/(m2) Date 10/23/24 07 - 10/24/24 0659 10/24/24 07 - 10/25/24 0659 Shift 4239-2202 1713-3598 2221-0591 24 Hour Total 9141-8885 1889-1245 9870-2693 24 Hour Total INTAKE PO 240 680 920 PO 240 680 920 IV 160 160 Volume (mL) (NaCl 0.9% iv infusion) 160 160 Shift Total 746 245 0765 OUTPUT Urine Urine Incontinence/Not Saved 2 x 2 x Urine Not Saved. 2 x 3 x 5 x # of BMs Number of BMs 0 x 0 x Shift Total Weight (kg) 98.9 98.9 98.9 98.9 98.9 98.9 98.9 98.9 ABNORMAL/NEW FINDINGS: NONE RADIOLOGY/DIAGNOSTICS: LABORATORY: CBC: Recent Labs 10/25/24 0345 WBC 9.61 RBC 4.07 HB 11.7 HCT 38.0 PLT 144* MCV 93.4 MCH 28.7 MPV 10.4 CMP: Recent Labs 10/25/24 0345 NA 139 K 4.8 CHLOR 102 CO2 30 BUN 15 CREAT 1.12* GLUC 96 CA 9.0 ANION 7* Heme: No results for input(s): RETICP, ABSRETIC, LD, LESLEY, FE, TIBC,TRANSFERSAT in the last 24 hours. ACTIVE PROBLEM LIST Intertrochanteric Fracture of Right Femur, Closed, Initial Encounter ([facility]) Obesity, Class II, Bmi 35-39.9 Anemia, Unspecified Stage 3b Chronic Kidney Disease ([facility]) Hypertension Hyperlipidemia Gastroesophageal Reflux Disease Controlled Type 2 Diabetes Mellitus Without Complication, With Long-Term Current Use of Insulin ([facility]) Depressive Disorder Pain in Right Hip Stage 3 Chronic Kidney Disease ([facility]) Arteriosclerosis of Coronary Artery Class 1 Obesity Due to Excess Calories With Body Mass Index (Bmi) of 34.0 to 34.9 in Adult Pablo (Obstructive Sleep Apnea) Tobacco Abuse Status Post Total Hip Replacement, Right Primary Osteoarthritis of Left Knee Preop Examination Status Post Total Knee Replacement, Left Acute Respiratory Failure With Hypoxia and Hypercapnia (Hcc) Acute Metabolic Encephalopathy Somnolence Other Chronic Pain Delirium ASSESSMENT AND PLAN reviewed and revised 10/25/2024 S/p left TKA 6/2 Opiate dependent before admission on Butrans 20 mcg weekly patch. Patient at high risk with opiate titration given obesity, PABLO (noncompliant with CPAP Patient transferred to ICU yesterday for acute hypoxic hypercapnic respiratory failure (BiPAP), somnolence. Delirium today. Received Narcan x 2 Butrans 20 mcg weekly patch discontinued yesterday Lidoderm patch added Tylenol 1 g every 8 hours Monitor for opiate withdrawal symptoms. Reasonable to add tramadol 50 mg every 6 hours as needed; if ineffective, consider oxycodone 5 mg every 6 hours as needed Patient will need PT/OT; disposition pending Our team will sign off; defer to ICU team for now-available as needed Fatou Rubin MD ADDENDUM: Portions of this note were copied and updated including ROS, PFSH, and PE so as to provide important historical information essential in contributing to medical decision making today. PROGRESS Observed: 10/25/2024 7:39 AM Status: COMPLETED Source: [facility] HNO ID: [id number] Author: GURPREET RODRIGES DO Service: Critical Care Author Type: Physician Type: Progress Notes Filed: 10/25/2024 12:09 Note Text: CRITICAL CARE PROGRESS NOTE SERVICE DATE: October 25, 2024 Admission Date: 10/22/2024 AGE: [age] year old LOS: 1 days 79F with PMHx CAD, type II DM, CKD stage III, PABLO not on CPAP, GERD, HLD, HTN, OA and chronic pain admitted for planned L TKA on 10/22 somnolent on RNF, found to be in hypercapnic respiratory failure and transferred to MICU for BiPAP Plan of care rounds were performed and the ICU checklist was reviewed and completed. ICU Checklist A= Assess, Prevent, Manage Pain C= Choice of Sedation and Analgesia B= Both Spontaneous Awakening and Breathing Trials D= Delirium: Assess, Prevent and Manage E= Early Mobility/Excercise ICU Mobility: F= Family Engagement and Empowerment ICU Disposition: Prevention: VTE Prophylaxis: Subjective Intermittently refusing BiPAP, delirious Objective PROBLEMS: ACTIVE PROBLEM LIST Intertrochanteric Fracture of Right Femur, Closed, Initial Encounter ([facility]) Obesity, Class II, Bmi 35-39.9 Anemia, Unspecified Stage 3b Chronic Kidney Disease ([facility]) Hypertension Hyperlipidemia Gastroesophageal Reflux Disease Controlled Type 2 Diabetes Mellitus Without Complication, With Long-Term Current Use of Insulin ([facility]) Depressive Disorder Pain in Right Hip Stage 3 Chronic Kidney Disease ([facility]) Arteriosclerosis of Coronary Artery Class 1 Obesity Due to Excess Calories With Body Mass Index (Bmi) of 34.0 to 34.9 in Adult Pablo (Obstructive Sleep Apnea) Tobacco Abuse Status Post Total Hip Replacement, Right Primary Osteoarthritis of Left Knee Preop Examination Status Post Total Knee Replacement, Left Acute Respiratory Failure With Hypoxia and Hypercapnia ([facility]) Acute Metabolic Encephalopathy Somnolence Other Chronic Pain PAST MEDICAL HISTORY Diagnosis Date Angina pectoris Chronic kidney disease, stage 3b ([facility]) Coronary arteriosclerosis Depression GERD (gastroesophageal reflux disease) HLD (hyperlipidemia) HTN (hypertension) Neuropathy bilateral feet Obesity PABLO (obstructive sleep apnea) Primary osteoarthritis of left knee Right hip pain Tobacco abuse Type 2 diabetes mellitus ([facility]) insulin dependent PAST SURGICAL HISTORY Procedure Laterality Date APPENDECTOMY 1955 L'SCOPE CHOLECYSTECTOMY LIGATE FALLOPIAN TUBE PAST SURGICAL HISTORY OF C5 and C6 fusion with titanium PAST SURGICAL HISTORY OF Right 02/06/2024 right [place] TOTAL ABDOM HYSTERECTOMY TX INTER/NY/SUBTRCHNTRIC FEMORAL FX SCREW IMPLT Right 11/07/2021 Social History Tobacco Use Smoking status: Former Current packs/day: 0.00 Average packs/day: 3.0 packs/day for 45.0 years (135.0 ttl pk-yrs) Types: Cigarettes Start date: 12/1961 Quit date: 12/2006 Years since quittin.8 Smokeless tobacco: Never Vaping Use Vaping status: Never Used Substance Use Topics Alcohol use: Not Currently Drug use: Never VITAL SIGNS (last 24hrs min/max): Temp Av.8 ?C (100 ?F) Min: 37.2 ?C (98.9 ?F) Max: 38.1 ?C (100.6 ?F) Pulse Av.6 Min: 68 Max: 104 No data recorded Cuff BP Min: 104/47 Max: 166/63 Pain Level: 5 Vital signs reviewed. BP 130/88 Pulse 87 Temp (Src) 100.2 (Knight Thermistor) Resp 19 Ht 5' 5 (1.65m) Wt 218 lb 0.6 oz (98.9kg) SpO2 100% BMI 36.28 kg/(m2). O2 Therapy: Nasal Cannula, Liters (Numeric Only): 2, %FIO2: 30 Temp (24hrs), Av.8 ?C (100 ?F), Min:37.2 ?C (98.9 ?F), Max:38.1 ?C (100.6 ?F) NET FLUID BALANCE Intake/Output Summary (Last 24 hours) at 10/25/2024 0739 Last data filed at 10/25/2024 0500 Gross per 24 hour Intake -- Output 1150 ml Net -1150 ml MEDICATIONS Current Facility-Administered Medications Medication Dose Route Frequency insulin lispro injection (rapid acting) (ADMElog) SUBCUTANEOUS q 6 H insulin glargine 24 Units injection (LANTUS SOLOSTAR, BASAGLAR KWIKPEN) 24 Units SUBCUTANEOUS AT BEDTIME carvedilol 6.25 mg tab(s) (COREG) 6.25 mg ORAL BID w MEALS citalopram hydrobromide 10 mg tablet (CeleXA) 10 mg ORAL DAILY isosorbide mononitrate ER 30 mg tab(s) (IMDUR) 30 mg ORAL DAILY nitroglycerin sublingual 0.4 mg tab(s) (NITROQUICK) 0.4 mg SUBLINGUAL q [address] 40 mg tab(s) (PROTONIX) 40 mg ORAL BID ondansetron 4 mg tab(s) (ZOFRAN) 4 mg ORAL q 6 H PRN Or ondansetron (PF) 4 mg injection (ZOFRAN) 4 mg INTRAVENOUS q 6 H PRN magnesium hydroxide 400 mg/5 mL 30 mL (MOM) 30 mL ORAL DAILY PRN bisacodyl EC 10 mg tab(s) (DULCOLAX) 10 mg ORAL DAILY aluminum-magnesium hydroxide-simethicone 200-200-20 mg/5 mL 30 mL 30 mL ORAL q 2 H PRN ascorbic acid (vitamin C) 500 mg tab(s) (VITAMIN C) 500 mg ORAL BID w MEALS docusate sodium 100 mg cap(s) (COLACE) 100 mg ORAL BID senna 17.2 mg tab(s) (SENOKOT) 17.2 mg ORAL AT BEDTIME aspirin, enteric coated 81 mg tab(s) 81 mg ORAL BID NaCl 0.9% iv flush bag 20 mL INTRAVENOUS PRN acetaminophen 1,000 mg tab(s) (TYLENOL) 1,000 mg ORAL q 8 H dextrose 15 gram/32 mL 15 g (TRUEPLUS) 15 g ORAL PRN Or glucagon 1 mg injection 1 mg INTRAMUSCULAR PRN Or dextrose 10% iv bolus 12.5 g INTRAVENOUS PRN magnesium lactate ER 84 mg tab(s) (MAGTAB) 84 mg ORAL AT BEDTIME Lines, Drains, and Airways Line Duration Peripheral 10/24/[address] [facility] Short Right Forearm 22 Gauge <1 day Peripheral 10/24/24 1800 Short Right Hand 22 Gauge <1 day Drain Duration Indwelling Urinary Catheter 10/24/[address] [facility] Knight 16 Fr <1 day PHYSICAL EXAM PERFORMED: General: no acute distress Cardiovascular: Regular rhythm Respiratory: Clear to auscultation Abdomen: Soft and Nontender Extremities: Edema- No. LLL dressing clean, dry intact Neurologic: Agitated Respiratory/Nursing Documentation: O2 Therapy: Nasal Cannula (10/25/24 0600) HEMODYNAMIC DATA: Reviewed NUTRITION: Enteral Feeds: Swallowing evaluation NPO DATA: Diagnostic tests reviewed for today's visit, films/specimens were personally reviewed by me: Most recent labs and imaging results. LABS: Recent Labs 10/25/24 0345 WBC 9.61 RBC 4.07 HB 11.7 HCT 38.0 MCV 93.4 PLT 144* GLUC 96 BUN 15 CREAT 1.12* NA 139 K 4.8 CHLOR 102 CO2 30 CA 9.0 ABG: Invalid input(s): [id number] VBG 10/26 pH 7.26, pCO2 75 IMPRESSION: 79F with PMHx CAD, type II DM, CKD stage III, PABLO not on CPAP, GERD, HLD, HTN, OA and chronic pain admitted for planned L TKA on 6/2 somnolent on RNF, found to be in hypercapnic respiratory failure and transferred to MICU for BiPAP Acute hypoxic and hypercapnic respiratory failure Somnolence, improving 2/2 hypercapnia vs opioid overdose Acute metabolic encpehalopathy Delirium POD #3 s/p L TKA Fever PABLO not on CPAP Type II DM CKD stage III Chronic pain MMP Continue ICU care Intermittently refusing BiPAP, however, blood gas improving Improvement in mentation with narcan administration Delirium worsening today Repeat VBG Check urinalysis, follow up DVT US Removed butrans patch 10/24, resume home lyrica at lower dose. Consider oral opioid therapy if patient complaining of pain Bowel regimen Monitor HR / BP. Continue supplemental O2, wean as tolerated to saturation > 90% Encourage incentive spirometer and Acapella PT/OT Monitor electrolytes. Keep K >4, Mg >2, Po4 >2.5 Resume home medications as tolerated Ensure BG control as indicated; goal <180 but avoid Hypoglycemia. Adjustments made to long acting DVT prophylaxis; aspirin BID per ortho. GI prophylaxis; continue home omperazole This patient has a high probability of sudden, clinically significant deterioration, which requires the highest level of physician preparedness to intervene urgently. I managed/supervised life or organ supporting interventions that required frequent physician assessment. I devoted my full attention to the direct care of this patient for the amount of time indicated below. Time I spent with family or surrogate(s) is included only if the patient was incapable of providing the necessary information or participating in medical decision making. Time devoted to teaching is not included. Discussed with staff/patient/family Time spent providing critical care services: 35 minutes excluding procedures. Portions of this note including HPI, ROS, impression/plan, and examination may have been copied forward from 10/24, as to provide important historical information essential in contributing to medical decision making. Documentation has been reviewed and edited as necessary to support clinical decision making for today's visit and to reflect my own independent evaluation of this patient. SIGNATURE: Gurpreet Rodriges DO PATIENT NAME: Audra Archer DATE: October 25, 2024 TIME: 7:39 AM PROGRESS Observed: 10/25/2024 6:08 AM Status: COMPLETED Source: [facility] HNO ID: [id number] Author: NASH MANZANARES MD Service: Orthopaedic Surgery Author Type: Physician Type: Progress Notes Filed: 10/25/2024 08:40 Note Text: I evaluated the patient and personally participated in the richards components. I agree with the resident's findings and plan with the following revisions and/or additions: Awake and conversational. Complains of knee pain and feeling cold. Oriented to person but can be redirected easily. Continue supportive care. Signature: Nash Manzanares MD Service Date: 10/25/2024 Service Time: 8:38 AM Orthopaedic Surgery Inpatient Progress Note Assessment Audra Archer is a 79 year old female who is POD #3 status-post L TKA. Plan -Pain control -Weight Bearing As Tolerated LLE -Dressing management - Mepilex X7 days -Reg diet -PT/OT patient has Rehab bed at [facility], skilled for SNF -DVT ppx: Aspirin 81mg BID -Post op Abx 2g AncefX2 doses -D/C planning: Rehab at [facility] -mgmt per ICU for respiratory distress -Follow up: With Dr. Manzanares in 10-14 days Subjective Transferred to ICU yesterday for respiratory issues. Has been weaned down to 2L NC saturating well. Has been delirious, Aox1 and unable to fully participate in exam however denies significant pain to L knee. Physical Examination Vitals BP 130/88 Pulse 87 Temp 37.9 ?C (100.2 ?F) Resp 19 Ht 165.1 cm (5' 5) Wt 98.9 kg (218 lb 0.6 oz) SpO2 100% BMI 36.28 kg/m? General Alert and oriented. No acute distress. Cooperative with interview. Left Lower Extremity Dressing CDI SILT Galindo/Sa/DP/SP/T. Motor intact EHL/DF/PF. DP/PT pulses palpable; BCR all digits. Labs Recent Labs 10/25/24 0345 10/24/24 2130 10/24/24 1313 10/24/24 1000 NA 139 -- -- 134* K 4.8 -- -- 4.9 CHLOR 102 -- -- 100 CO2 30 -- -- 30 BUN 15 -- -- 17 CREAT 1.12* -- -- 1.03* GLUC 96 -- -- 122* ANION 7* -- -- 4* CA 9.0 -- -- 8.4* WBC 9.61 9.63 -- -- HB 11.7 11.7 -- -- HCT 38.0 36.8 -- -- PLT 144* 141* -- -- LACT 0.9 0.7 < > -- < > = values in this interval not displayed. Imaging NNOI Jt Carrasco MD October 25, 2024 6:04 AM INPATIENT ATTENDING: Dr. Manzanares, Nash Cole MD, Elective High-Risk Geriatric Patient Vulnerabilities: Impaired Functional Status and Impaired Mobility Diet: No diet orders on file Recommendations: Cognition: No Cognitive Impairment bCAM Score (Calc): Positive Delirium Screen Confusion Assessment Method (CAM - ICU Score): (!) Positive Geriatric Consult (Age over 85 or impaired cognition):Consult not needed Palliative Care/Hospice: Consult not required Rehab/Therapy: PT/OT Recommendations: PT: Recommended Discharge Disposition: Subacute/SNF OT: Recommended Discharge Disposition: Subacute/SNF Swallow: Swallow Screening Result - Step 2: PASSED Swallow Screen - Patient Able To Swallow 3 Ounce Cup of Water Without Exhibiting Signs Of Aspiration Speech Recommendations: Speech: Speech Diet: Nutrition: Consult not required Nutrition Recommendations: MST: Total MST Score (Calculated): 0 Quality Consultant: Pharmacy: Consult not needed Social Work: NA Anticipated Discharge Disposition: GAS + CO PNL BLDV Collected: 3:45 AM Status: F Source: [facility] Order Comment: Specimen Type : VENOUS BLOOD SPECIMEN Ordering Facility: [facility] Address: [address] [place] [address] TYPE CODE TESTS RESULT OUT OF RANGE REFERENCE UNITS LAB 2746-6(LOINC) pH BldV 7.27 Low 7.32-7.42 LAB 03711-5(LOINC) pH temp adj BldV 7.26 Low 7.32-7.42 LAB 1-4(LOINC) pCO2 BldV 75 High 42-55 mmHg LAB 45002-2(LOINC) pCO2 temp adj BldV 77 High 42-55 mmHg LAB 2705-2(LOINC) pO2 BldV 49 High 35-45 mmHg LAB 53721-6(LOINC) pO2 temp adj BldV 52 High 35-45 mmHg LAB 2711-0(LOINC) SaO2 % BldV 81 60-85 % LAB 1927-3(LOINC) Base excess BldV Calc-sCnc 4 High 0-2 mmol/L LAB 48060-0(LOINC) HCO3 BldV-sCnc 33 High 24-28 mmol/L LAB 2716-9(LOINC) OxyHgb MFr BldV 79 60-85 % LAB 2032-1(LOINC) COHgb MFr BldV 1.0 0.0-2.0 % Result Comment: Carboxyhemog lobin Reference Range for Smokers: 2.0-8.0% LAB 2614-6([facility]) MetHgb MFr Bld 0.7 0.0-1.5 % LAB 2947-0([facility]) Sodium Bld-sCnc 138 136-144 mmol/L LAB 6298-4([facility]) Potassium Bld-sCnc 4.5 3.5-5.0 mmol/L LAB CHLWBBG CHLORIDE WHOLE BLOOD 100 97-105 mmol/L LAB 54748-2([facility]) Ca-I BldV-mCnc 1.26 1.08-1.30 mmol/L LAB 14549-8([facility]) Ca-I adj pH7.4 BldA-sCnc 1.17 1.08-1.30 mmol/L LAB 2339-0([facility]) Glucose Bld-mCnc 102 60-105 mg/dL LAB 41338-2([facility]) Lactate Bld-sCnc 0.9 0.5-2.2 mmol/L LAB 718-7([facility]) Hgb Bld-mCnc 12.2 11.5-15.5 g/dL LAB 4544-3([facility]) Hct VFr Bld Auto 37.6 36.0-46.0 % LAB VTMP TEMPERATURE, BODY 37.8 C LAB LITERBG LITERS 2 Liters/m in LAB VO2TH O2 THERAPY NC = Nasal Cannula Performed By: #### 07206-1 # ### [facility] CLIA [id number] [address] [place] [address] [place] BAS METAB 2000 PNL SERPL Collected: 09/2024 3:45 AM Status: F Source: [facility] Order Comment: Specimen Type : BLOOD SPECIMEN Ordering Facility: [facility] Address: [address] [place] [address] TYPE CODE TESTS RESULT OUT OF RANGE REFERENCE UNITS LAB 2345-7([facility]) Glucose SerPl-mCnc 96 74-99 mg/dL Result Comment: The [place] Diabetes [employer] (ADA) provides guidance for cutoff values for fasting glucose and random glucose. The ADA defines fasting as no caloric intake for at least 8 hours. Fasting plasma glucose results between 100 to 125 mg/dL indicate increased risk for diabetes (prediabetes). Fasting plasma glucose results greater than or equal to 126 mg/dL meet the criteria for diagnosis of diabetes. In the absence of unequivocal hyperglycemia, results should be confirmed by repeat testing. In a patient with classic symptoms of hyperglycemia or hyperglycemic crisis, random plasma glucose results greater than or equal to 200 mg/dL meet the criteria for diagnosis of diabetes. Reference: Standards of Medical Care in Diabetes 2016, [place] [employer]. Diabetes Care. 2016.39(Suppl 1). LAB 3094-0(LOINC) BUN SerPl-mCnc 15 7-21 mg/ dL LAB 2160-0(LOINC) Creat SerPl-mCnc 1.12 High 0.58-0.96 mg/dL LAB 2951-2(LOINC) Sodium SerPl-sCnc 139 136-144 mmol/L LAB 2823-3(LOINC) Potassium SerPl-sCnc 4.8 3.7-5.1 mmol/L LAB 2075-0(LOINC) Chloride SerPl-sCnc 102 98-107 mmol/L LAB 202-9(LOINC) CO2 SerPl-sCnc 30 22-30 mmo l/L LAB 1863-0(LOINC) Anion Gap4 SerPl-sCnc 7 Low 8-15 mmol/L LAB 51492-3(LOINC) Calcium SerPl-mCnc 9.0 8.5-10.2 mg/dL LAB 03142-7(LOINC) Creatinine + eGFR Pnl SerPlBld 50 Low >=60 mL/min/1. 73m??? Result Comment: Estimated Gl omerular Filtration Rate (eGFR) is calculated using the 2020 CKD-EPI creatinine equation. This equation utilizes serum creatinine, sex, and age as parameters. The creatinine assay has traceable calibration to isotope dilution-mass spectrometry. Refer to KDIGO guidelines for clinical interpretation. In patients with unstable renal function, e.g. those with acute kidney injury, the eGFR may not accurately reflect actual GFR. Performed By: #### 32196-5 # ### [facility] CLIA [id number] [address] [place] CBC PNL BLD AUTO Collected: 10/25/2024 3:45 AM Statu s: F Source: [facility] Order Comment: Specimen Type : BLOOD SPECIMEN Ordering Facility: [facility] Address: [address] [place] [address] TYPE CODE TESTS RESULT OUT OF RANGE REFERENCE UNITS LAB 6690-2(LOINC) WBC # Bld Auto 9.61 3.70-11.00 k/uL LAB 789-8(LOINC) RBC # Bld Auto 4.07 3.90-5.20 m/ uL LAB 718-7(LOINC) Hgb Bld-mCnc 11.7 11.5-15.5 g/dL LAB 4544-3(LOINC) Hct VFr Bld Auto 38.0 36.0-46.0 % LAB 787-2(LOINC) MCV RBC Auto 93.4 80.0-100.0 fL LAB 785-6(LOINC) MCH RBC Qn Auto 28.7 26.0-34.0 pg LAB 786-4(LOINC) MCHC RBC Auto-mCnc 30.8 30.5-36.0 g/dL LAB 07295-5(INC) RDW RBC-Rto 13.4 11.5-15.0 % LAB 777-3(INC) Platelet # Bld Auto 144 Low 150-400 k/uL LAB 34200-9(INC) PMV Bld Auto 10.4 9.0-12.7 fL LAB 771-6(LOINC) nRBC # Bld Auto <0.01 <0.01 k/uL Performed By: #### 84511-9 # ### [facility] CLIA [id number] [address] OF [facility] URINALYSIS COMPLETE PNL UR Collected: 10/24/2024 9:30 PM Status: F Source: [facility] Order Comment: Specimen Type : URINE SPECIMEN Ordering Facility: [facility] Address: [address] [place] [address] TYPE CODE TESTS RESULT OUT OF RANGE REFERENCE UNITS LAB 5778-6(LOINC) Color Ur Colorless yellow LAB 01438-5(LOINC) Clarity Spec Clear Clear LAB 5792-7(LOINC) Glucose Ur Strip-mCnc Negative Trace, Negative LAB 5770-3(LOINC) Bilirub Ur Ql Strip Negative Negative LAB 2514-8(LOINC) Ketones Ur Strip Negative Negative, Trace LAB 5811-5(LOINC) Sp Gr Ur Strip 1.009 1.005-1.030 LAB 5794-3(LOINC) Hgb Ur Ql Strip 3+ Abnormal Negative, Trace LAB 5803-2([facility]) pH Ur Strip 5.5 5.0-8.0 LAB 5804-0([facility]) Prot Ur Strip-mCnc Negative Trace, Negative LAB 5818-0(LOINC) Urobilinogen Ur Strip Normal Normal LAB 5802-4(LOINC) Nitrite Ur Ql Strip Negative Negative LAB 5799-2([facility]) Leukocyte esterase Ur Ql Strip Negative Negative, 25 Lashae/uL LAB 5821-4([facility]) WBC #/area UrnS HPF 0-5 /HPF 0-5 /HPF LAB 10515-8([facility]) RBC #/area UrnS HPF >25 /HPF Abnormal 0-3 /HPF LAB 5769-5([facility]) Bacteria #/area UrnS HPF Few Abnormal None Seen /HPF LAB 5787-7([facility]) Epi Cells #/area UrnS HPF Few /HPF Result Comment: Few Performed By: #### 09620-3 # ### [facility] CLIA [id number] [address] [place] [address] [place] GAS + CO PNL BLDV Collected: 5 9:30 PM Status: F Source: [facility] Order Comment: Specimen Type : VENOUS BLOOD SPECIMEN Ordering Facility: [facility] Address: [address] [place] [address] TYPE CODE TESTS RESULT OUT OF RANGE REFERENCE UNITS LAB 2746-6(LOINC) pH BldV 7.27 Low 7.32-7.42 LAB 34228-1(LOINC) pH temp adj BldV 7.26 Low 7.32-7.42 LAB 2020-4(LOINC) pCO2 BldV 69 High 42-55 mmHg LAB 90197-4(LOINC) pCO2 temp adj BldV 73 High 42-55 mmHg LAB 2705-2(LOINC) pO2 BldV 73 High 35-45 mmHg LAB 95915-2(LOINC) pO2 temp adj BldV 79 High 35-45 mmHg LAB 2711-0(LOINC) SaO2 % BldV 93 High 60-85 % LAB 1927-3([facility]) Base excess BldV Calc-sCnc 3 High 0-2 mmol/L LAB 17341-8([facility]) HCO3 BldV-sCnc 31 High 24-28 mmol/L LAB 2716-9([facility]) OxyHgb MFr BldV 91 High 60-85 % LAB 2032-1([facility]) COHgb MFr BldV 1.1 0.0-2.0 % Result Comment: Carboxyhemog lobin Reference Range for Smokers: 2.0-8.0% LAB 2614-6([facility]) MetHgb MFr Bld 0.7 0.0-1.5 % LAB 2947-0([facility]) Sodium Bld-sCnc 136 136-144 mmol/L LAB 6298-4([facility]) Potassium Bld-sCnc 4.6 3.5-5.0 mmol/L LAB CHLWBBG CHLORIDE WHOLE BLOOD 102 97-105 mmol/L LAB 23038-2([facility]) Ca-I BldV-mCnc 1.23 1.08-1.30 mmol/L LAB 39530-1([facility]) Ca-I adj pH7.4 BldA-sCnc 1.14 1.08-1.30 mmol/L LAB 2339-0([facility]) Glucose Bld-mCnc 117 High 60-105 mg/dL LAB 33257-7([facility]) Lactate Bld-sCnc 0.7 0.5-2.2 mmol/L LAB 718-7([facility]) Hgb Bld-mCnc 11.8 11.5-15.5 g/dL LAB 4544-3([facility]) Hct VFr Bld Auto 36.4 36.0-46.0 % LAB VTMP TEMPERATURE, BODY 38.1 C LAB LITERBG LITERS 4 Liters/m in LAB VO2TH O2 THERAPY NC = Nasal Cannula Performed By: #### 73706-4 # ### [facility] CLIA [id number] [address] [place] OF [facility] CBC PNL BLD AUTO Collected: 10/24/2024 9:30 PM Statu s: F Source: [facility] Order Comment: Specimen Type : BLOOD SPECIMEN Ordering Facility: [facility] Address: [address] [place] [address] TYPE CODE TESTS RESULT OUT OF RANGE REFERENCE UNITS LAB 6690-2([facility]) WBC # Bld Auto 9.63 3.70-11.00 k/uL LAB 789-8(LOINC) RBC # Bld Auto 4.03 3.90-5.20 m/ uL LAB 718-7(LOINC) Hgb Bld-mCnc 11.7 11.5-15.5 g/dL LAB 4544-3(INC) Hct VFr Bld Auto 36.8 36.0-46.0 % LAB 787-2(INC) MCV RBC Auto 91.3 80.0-100.0 fL LAB 785-6(INC) MCH RBC Qn Auto 29.0 26.0-34.0 pg LAB 786-4([facility]) MCHC RBC Auto-mCnc 31.8 30.5-36.0 g/dL LAB 08802-9([facility]) RDW RBC-Rto 14.0 11.5-15.0 % LAB 777-3(INC) Platelet # Bld Auto 141 Low 150-400 k/uL LAB 62682-2([facility]) PMV Bld Auto 10.2 9.0-12.7 fL LAB 771-6(INC) nRBC # Bld Auto <0.01 <0.01 k/uL Performed By: #### 97286-9 # ### [facility] CLIA [id number] [address] [place] [address] [place] GAS + CO PNL BLDV Collected: 5 6:30 PM Status: F Source: [facility] Order Comment: Specimen Type : VENOUS BLOOD SPECIMEN Ordering Facility: [facility] Address: [address] [place] [address] TYPE CODE TESTS RESULT OUT OF RANGE REFERENCE UNITS LAB 2746-6(LOINC) pH BldV 7.26 Low 7.32-7.42 LAB 10700-0(LOINC) pH temp adj BldV 7.25 Low 7.32-7.42 LAB 2020-4(INC) pCO2 BldV 69 High 42-55 mmHg LAB 01606-3(LOINC) pCO2 temp adj BldV 71 High 42-55 mmHg LAB 2705-2([facility]) pO2 BldV 60 High 35-45 mmHg LAB 63233-2([facility]) pO2 temp adj BldV 62 High 35-45 mmHg LAB 2711-0([facility]) SaO2 % BldV 88 High 60-85 % LAB 1927-3([facility]) Base excess BldV Calc-sCnc 2 0-2 mmol/L LAB 96176-1([facility]) HCO3 BldV-sCnc 30 High 24-28 mmol/L LAB 2716-9([facility]) OxyHgb MFr BldV 86 High 60-85 % LAB 2032-1([facility]) COHgb MFr BldV 1.7 0.0-2.0 % Result Comment: Carboxyhemog lobin Reference Range for Smokers: 2.0-8.0% LAB 2614-6([facility]) MetHgb MFr Bld 1.1 0.0-1.5 % LAB 2947-0([facility]) Sodium Bld-sCnc 139 136-144 mmol/L LAB 6298-4([facility]) Potassium Bld-sCnc 4.7 3.5-5.0 mmol/L LAB CHLWBBG CHLORIDE WHOLE BLOOD 102 97-105 mmol/L LAB 50367-9([facility]) Ca-I BldV-mCnc 1.27 1.08-1.30 mmol/L LAB 57709-7([facility]) Ca-I adj pH7.4 BldA-sCnc 1.17 1.08-1.30 mmol/L LAB 2339-0([facility]) Glucose Bld-mCnc 117 High 60-105 mg/dL LAB 48930-5([facility]) Lactate Bld-sCnc 0.7 0.5-2.2 mmol/L LAB 718-7([facility]) Hgb Bld-mCnc 11.8 11.5-15.5 g/dL LAB 4544-3([facility]) Hct VFr Bld Auto 36.2 36.0-46.0 % LAB VTMP TEMPERATURE, BODY 37.5 C LAB VO2TH O2 THERAPY BIPAP = BiLevel Positive Airway Pressure Performed By: #### 09111-2 # ### [facility] CLIA [id number] [address] [place] [id number] [place] HISTORY PHYSICAL Observed: 10/24/2024 4:26 PM Status: COMPLETED Source: [facility] HNO ID: [id number] Author: GURPREET RODRIGES DO Service: Critical Care Author Type: Physician Type: H&P Filed: 10/24/2024 16:38 Note Text: Please link this to the resident's note completed on October 24, 2024 PATIENT NAME: Audra Archer [facility] STAFF PHYSICIAN NOTE OF PERSONAL INVOLVEMENT IN CARE I have reviewed the history and physical examination obtained and documented by the Resident. I have personally performed a face to face assessment of the patient and have personally participated on the richards components of the history, exam and medical decision making. I have discussed the case and management of the patient's care. The following comments revise or confirm relevant richards components of the note. Imaging/echo CXR 10/24/24: No acute radiographic abnormality VBG pH 7.23, PCO2 76 Personally reviewed all pertinent data including labs, cultures, and imaging. IMPRESSION/PLAN: 79F with PMHx CAD, type II DM, CKD stage III, PABLO not on CPAP, GERD, HLD, HTN, OA and chronic pain admitted for planned L TKA on 6/2 somnolent on RNF, found to be in hypercapnic respiratory failure and transferred to MICU for BiPAP Acute hypoxic and hypercapnic respiratory failure Somnolence, 2/2 hypercapnia vs opioid overdose Acute metabolic encpehalopathy POD #2 s/p L TKA PABLO not on CPAP Type II DM CKD stage III Chronic pain MMP Admit the patient to the Intensive Care Unit Continue BiPAP, increase Pinsp 14, repeat VBG in 1-2 hrs Improvement in mentation with narcan administration Remove butrans patch, hold home lyrica given somnolence. Hold further opioid therapy at present given somnolence and hypercapnia with concern for opioid overdose DVT US LE Bowel regimen Monitor HR / BP. Continue supplemental O2, wean as tolerated to saturation > 90% Continue bronchodilators; DuoNebs QID and Albuterol prn Encourage incentive spirometer and Acapella PT/OT Monitor electrolytes. Keep K >4, Mg >2, Po4 >2.5 Resume home medications as tolerated Ensure BG control as indicated; goal <180 but avoid Hypoglycemia. Adjustments made to long acting DVT prophylaxis; aspirin BID per ortho. GI prophylaxis; continue home omperazole This patient has a high probability of sudden, clinically significant deterioration, which requires the highest level of physician preparedness to intervene urgently. I managed/supervised life or organ supporting interventions that required frequent physician assessment. I devoted my full attention to the direct care of this patient for the amount of time indicated below. Time I spent with family or surrogate(s) is included only if the patient was incapable of providing the necessary information or participating in medical decision making. Time devoted to teaching and to any procedures I billed separately is not included. Critical Care Documentation: The patient has the following organ/system impairment(s): Respiratory failure (Acute, with Hypercapnea, with Hypoxemia) Only for admission notes, Diagnosis present on admission to MICU: Respiratory Failure: Acute hypoxemic respiratory failure and Acute hypercapnic respiratory failure Time spent providing critical care services: 35 minutes. SIGNATURE: Gurpreet Rodriges [facility] DATE of SERVICE: 10/24/2024 GAS + CO PNL BLDV Collected: 4:11 PM Status: F Source: [facility] Order Comment: Specimen Type : VENOUS BLOOD SPECIMEN Ordering Facility: [facility] Address: [address] [place] [address] TYPE CODE TESTS RESULT OUT OF RANGE REFERENCE UNITS LAB 2746-6(LOINC) pH BldV 7.23 Low 7.32-7.42 LAB 03949-6(LOINC) pH temp adj BldV 7.22 Low 7.32-7.42 LAB 2020-4(LOINC) pCO2 BldV 79 High 42-55 mmHg LAB 24009-1(LOINC) pCO2 temp adj BldV 81 High 42-55 mmHg LAB 2705-2(LOINC) pO2 BldV 42 35-45 mmHg LAB 11274-0(LOINC) pO2 temp adj BldV 43 35-45 mmHg LAB 2711-0(LOINC) SaO2 % BldV 67 60-85 % LAB 1927-3(LOINC) Base excess BldV Calc-sCnc 3 High 0-2 mmol/L LAB 35175-6(LOINC) HCO3 BldV-sCnc 32 High 24-28 mmol/L LAB 2716-9(LOINC) OxyHgb MFr BldV 66 60-85 % LAB 2032-1(LOINC) COHgb MFr BldV 1.6 0.0-2.0 % Result Comment: Carboxyhemog lobin Reference Range for Smokers: 2.0-8.0% LAB 2614-6([facility]) MetHgb MFr Bld 1.0 0.0-1.5 % LAB 2947-0([facility]) Sodium Bld-sCnc 137 136-144 mmol/L LAB 6298-4([facility]) Potassium Bld-sCnc 5.1 High 3.5-5.0 mmol/L LAB CHLWBBG CHLORIDE WHOLE BLOOD 103 97-105 mmol/L LAB 53214-6([facility]) Ca-I BldV-mCnc 1.24 1.08-1.30 mmol/L LAB 70835-9([facility]) Ca-I adj pH7.4 BldA-sCnc 1.13 1.08-1.30 mmol/L LAB 2339-0([facility]) Glucose Bld-mCnc 113 High 60-105 mg/dL LAB 72546-9([facility]) Lactate Bld-sCnc 0.7 0.5-2.2 mmol/L LAB 718-7([facility]) Hgb Bld-mCnc 11.9 11.5-15.5 g/dL LAB 4544-3([facility]) Hct VFr Bld Auto 36.5 36.0-46.0 % LAB VTMP TEMPERATURE, BODY 37.5 C LAB VO2TH O2 THERAPY BIPAP = BiLevel Positive Airway Pressure Performed By: #### 84072-1 # ### [facility] CLIA [id number] [address] OF [facility] XR CHEST 1V FRONTAL Observed: 10/24/2024 4:11 PM Status: F Source: [facility] * * *Final Report* * * DATE OF EXAM: Oct 24 2024 4:11PM AKX [id number] - XR CHEST 1V FRONTAL / PROCEDURE REASON: Shortness of breath * * * * Physician Interpretation * * * * EXAMINATION: CHEST RADIOGRAPH (SINGLE VIEW AP OR PA) CLINICAL HISTORY: Shortness of breath MQ: XC1_5 Comparison: None RESULT: Lines, tubes, and devices: None. Lungs and pleura: Left upper lobe calcified granuloma. Otherwise, lungs are clear Cardiomediastinal silhouette: Normal cardiomediastinal silhouette. Other: . IMPRESSION: No acute radiographic abnormality. Systems Management Consultant: HARITHA Transcribe Date/Time: Oct 24 2024 4:12P Dictated by : WANDA HEALY MD This examination was interpreted and the report reviewed and electronically signed by: WANDA HEALY MD on Oct 24 2024 4:13PM EST [id number] HISTORY PHYSICAL Observed: 10/24/2024 2:20 PM Status: COMPLETED Source: [facility] HNO ID: [id number] Author: GURPREET RODRIGES DO Service: Critical Care Author Type: Physician Type: H&P Filed: 10/24/2024 16:26 Note Text: MICU HANDP PATIENT NAME: Audra Archer REASON FOR ADMISSION: Acute hypercapnic resp failure DATE: October 24, 2024 Subjective HPI Ms. Audra Archer is a 79 year old female with PMH: -HTN -CAD -T2DM on insulin -CKD stage 3 -PABLO not on home CPAP -Obesity Patient presented to [facility] on 10/22/2024 for left total knee replacement. She is POD #2. This morning around 9 pm she was noted to be lethargic and hypoxic, was saturating 60% on RA and was briefly placed on NRBM, patient was then able to be weaned to 3 L nasal cannula. Patient had buprenorphine patch on which was removed during the rapid. She had received 10 mg x 5 oxy on 10/23/24, 10 mg x 2 10/24/24 and pregabalin 150 mg TID. Received 4 mg of Narcan did briefly respond for few minutes and work was again lethargic, not following commands. as per nursing patient was working with PT yesterday and the change in mental status is new. Glucose noted to be 121 on VBG. VBG showed respiratory acidosis with pH of 7.23, pCO2 of 76, lactate of 0.6. On examination at bedside patient was lethargic, able to move toes on command, not following any other commands. Unable to examine pupil as patient resisted eye opening. Patient was saturating 95% on 3 L nasal cannula. Review of Systems PAST MEDICAL HISTORY Diagnosis Date Angina pectoris Chronic kidney disease, stage 3b (HCC) Coronary arteriosclerosis Depression GERD (gastroesophageal reflux disease) HLD (hyperlipidemia) HTN (hypertension) Neuropathy bilateral feet Obesity PABLO (obstructive sleep apnea) Primary osteoarthritis of left knee Right hip pain Tobacco abuse 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 PAST SURGICAL HISTORY Procedure Laterality Date APPENDECTOMY 1955 L'SCOPE CHOLECYSTECTOMY LIGATE FALLOPIAN TUBE PAST SURGICAL HISTORY OF C5 and C6 fusion with titanium PAST SURGICAL HISTORY OF Right 02/06/2024 right [place] TOTAL ABDOM HYSTERECTOMY TX INTER/NY/SUBTRCHNTRIC FEMORAL FX SCREW IMPLT Right 11/07/2021 FAMILY HISTORY Problem Relation Age of Onset Diabetes Mother Heart Mother Lung Cancer Mother Social History Tobacco Use Smoking status: Former Current packs/day: 0.00 Average packs/day: 3.0 packs/day for 45.0 years (135.0 ttl pk-yrs) Types: Cigarettes Start date: 12/1961 Quit date: 12/2006 Years since quittin.8 Smokeless tobacco: Never Vaping Use Vaping status: Never Used Substance Use Topics Alcohol use: Not Currently Drug use: Never No current facility-administered medications on file prior to encounter. Current Outpatient Medications on File Prior to Encounter Medication Sig Cetirizine (ZYRTEC) 10 mg cap Take 10 mg by mouth once daily. nystatin (MYCOSTATIN) powder APPLY EXTERNALLY TWICE DAILY magnesium chloride (SLOW-MAG ORAL) Take 1-2 tablets by mouth daily at bedtime. insulin lispro (HUMALOG U-100 INSULIN) 100 unit/mL injection Inject 5-10 Units subcutaneously three times a day before meals. Based in glucose level buprenorphine (BUTRANS) 20 mcg/hour transdermal patch 1 Patch one time a week. carvedilol (COREG) 6.25 mg tablet Take 6.25 mg by mouth two times a day with meals. citalopram hydrobromide (CELEXA) 10 mg tablet Take 10 mg by mouth once daily. isosorbide mononitrate ER (IMDUR) 30 mg 24 hr tablet Take 30 mg by mouth once daily. nitroglycerin sublingual (NITROQUICK) 0.4 mg SL tablet Dissolve 0.4 mg under the tongue every 5 minutes as needed for chest pain. omeprazole (PRILOSEC) 40 mg capsule Take 40 mg by mouth two times a day. pregabalin (LYRICA) 150 mg capsule Take 150 mg by mouth three times daily. Menthol-Zinc Oxide (CALMOSEPTINE) 0.44-20.6 % Apply to affected area two times a day as needed. acetaminophen (TYLENOL) 325 mg tablet Take 2 tablets by mouth every 6 hours as needed for pain. [Paused] LOW-DOSE ASPIRIN ORAL 81 mg once daily. TOUJEO MAX U-300 SOLOSTAR 300 unit/mL (3 mL) inpn Inject 60 Units subcutaneously daily at bedtime. DEXCOM G7 SENSOR beth Inject 1 application subcutaneously as directed. Objective OBJECTIVE BP 129/60 Pulse 71 Temp 37.2 ?C (98.9 ?F) (Oral) Resp 18 Ht 165.1 cm (5' 5) Wt 98.9 kg (218 lb 0.6 oz) SpO2 94% BMI 36.28 kg/m? Temp (24hrs), Av.2 ?C (98.9 ?F), Min:37 ?C (98.6 ?F), Max:37.5 ?C (99.5 ?F) Body mass index is 36.28 kg/m?., Hemoglobin A1C (%) Date Value 01/20/2024 6.5 Intake/Output Summary (Last 24 hours) at 10/24/2024 1422 Last data filed at 10/23/2024 2149 Gross per 24 hour Intake 840 ml Output -- Net 840 ml Physical Exam Constitutional: Comments: Lethargic not following commands, did slightly become more awake with narcan HENT: Mouth/Throat: Mouth: Mucous membranes are moist. Eyes: General: No scleral icterus. Cardiovascular: Rate and Rhythm: Normal rate and regular rhythm. Pulmonary: Breath sounds: Normal breath sounds. No wheezing or rales. Abdominal: Palpations: Abdomen is soft. Tenderness: There is no abdominal tenderness. Musculoskeletal: General: Tenderness present. No swelling. Comments: Left knee redness S/p surgery left knee Skin: General: Skin is warm. LABORATORY: BLOOD GAS: CBC: Recent Labs 10/24/24 0602 10/23/24 0222 10/19/24 1022 WBC 10.06 10.60 7.18 HB 12.2 11.8 12.7 HCT 38.8 36.5 41.0 PLT 158 152 168 MCV 92.2 88.4 91.9 RDWCV 13.8 13.3 13.6 COAG: No results for input(s): APTT, INR in the last 168 hours. CMP: Recent Labs 10/24/24 1000 10/23/24 0222 10/19/24 1022 GLUC 122* 143* 96 NA 134* 134* 142 K 4.9 4.8 4.6 CHLOR 100 101 101 CO2 30 27 31* ANION 4* 6* 10 BUN 17 11 18 CREAT 1.03* 1.24* 1.28* ALB -- -- 3.8* TBILI -- -- 0.2 ALKPHOS -- -- 133* AST -- -- 27 ALT -- -- 20 TPROT -- -- 7.7 URINALYSIS:No results for input(s): PH, SPGR, UGLUC, UBILI, UKET, UHB, UPROT, UROBIL, UWBC, SSA in the last 168 hours. Invalid input(s): NITR Cardiac:No results for input(s): CKTEST, CKMB, CKMBP, TROPONIN, BNP in the last 168 hours. Microbiology: Positive Micro-30 Days No results found for the last 720 hours. No results found for: LVEF CURRENT MEDICATIONS: IV infusions:NaCl 0.9%, Last Rate: Stopped (10/23/242148) Scheduled medications:pregabalin, 150 mg, BID cetirizine, 10 mg, DAILY carvedilol, 6.25 mg, BID w MEALS citalopram hydrobromide, 10 mg, DAILY isosorbide mononitrate ER, 30 mg, DAILY pantoprazole DR, 40 mg, BID insulin glargine, 48 Units, AT BEDTIME bisacodyl EC, 10 mg, DAILY ascorbic acid (vitamin C), 500 mg, BID w MEALS docusate sodium, 100 mg, BID senna, 17.2 mg, AT BEDTIME aspirin, enteric coated, 81 mg, BID acetaminophen, 1,000 mg, q 8 H magnesium lactate ER, 84 mg, AT BEDTIME insulin lispro, , w MEALS PRN:traMADol, 50 mg, q 6 H PRN nitroglycerin sublingual, 0.4 mg, q 5 MIN PRN ondansetron, 4 mg, q 6 H PRN Or ondansetron (PF), 4 mg, q 6 H PRN magnesium hydroxide, 30 mL, DAILY PRN aluminum-magnesium hydroxide-simethicone, 30 mL, q 2 H PRN NaCl 0.9%, 20 mL, PRN dextrose, 15 g, PRN Or glucagon, 1 mg, PRN Or dextrose 10%, 12.5 g, PRN ICU Checklist A= Assess, Prevent, Manage Pain C= Choice of Sedation and Analgesia B= Both Spontaneous Awakening and Breathing Trials D= Delirium: Assess, Prevent and Manage E= Early Mobility/Excercise ICU Mobility: F= Family Engagement and Empowerment ICU Disposition: Prevention: VTE Prophylaxis: Lines, Drains, and Airways Line Duration Peripheral 10/24/[address] [facility] Short Right Forearm 22 Gauge <1 day Assessment AND Plan ASSESSMENT Ms. Audra Archer is a 79 year old female with H Active Hospital Problems Diagnosis Date Noted Status post total knee replacement, left 10/22/2024 PLAN #Acute hypercapnic resp failure likely hypoventilation 2/2 to opiates and pregabalin #Acute metabolic encephalopathy likely due to hypercapnia #POD#2 Left TKR #PABLO not on home CPAP #T2DM- insulin dependent #HTN #Hx CAD #Obesity #CKD stage 3 - baseline Cr around 1.2 -Admit to MICU -BIPAP for hypercapnia and encephalopathy -Repeat 0.4 mg narcan, if responds will consider additional doses vs narcan gtt -Repeat VBG in 2hr - Discontinue cetrizine, lyrica, oxy and Buprenorphine patch removed -Can consider PRN fentanyl for pain once mentation improves -Decrease Glargine to 24 units from 48 unit- BG tightly controlled and will be NPO on bipap, continue SS1 -Continue HTN meds with holding parameters -Check CXR -Check DVT US B/LL -Continue ASA 81 mg BID daily for DVT prophylaxis, check with ortho tomorrow Code Status: Full Code Plan of care discussed with: [facility]: For questions and/or concerns please page #[phone]. For consultation please page #[phone]. SIGNATURE: Rachell Mcpherson MD PATIENT NAME: Audra Archer DATE: October 24, 2024 TIME: 2:22 PM PAGER#: [phone] I evaluated the patient and personally participated in the richards components. I have discussed the case and management of the patient's care with the resident. See my note documented separately. Gurpreet Rodriges, NURSING PROG Observed: 10/24/2024 1:53 PM Status: COMPLETED Source: [facility] HNO ID: [id number] Author: YOGI MATA RN Service: ? Author Type: Registered Nurse Type: Nursing Progress Note Filed: 10/24/2024 14:03 Note Text: Buprenorphine patch removed per Laura Krause APRN. PLAN OF CARE Observed: 10/24/2024 1:36 PM Status: COMPLETED Source: [facility] HNO ID: [id number] Author: CINDY KRAUSE APRN.[employer] PREPARATION WORKER Service: Orthopaedic Surgery Author Type: Nurse Practitioner Type: Plan of Care Filed: 10/24/2024 14:05 Note Text: Patient lethargic, given narcan earlier due to lethargy and hypoxia. VBG reveals respiratory acidosis with hypercapnia. Likely will need ICU for bipap. Spoke with Mary Kay Burroughs from [facility]. And placed consult for ICU. Patient has on butrens patch and received oxycodone. Patch removed and discontinue BP 129/60 Pulse 71 Temp 37.2 ?C (98.9 ?F) (Oral) Resp 18 Ht 165.1 cm (5' 5) Wt 98.9 kg (218 lb 0.6 oz) SpO2 94% BMI 36.28 kg/m? PROGRESS Observed: 10/24/2024 1:26 PM Status: COMPLETED Source: [facility] HNO ID: [id number] Author: SARTHAK VENEGAS MD Service: Hospital Medicine Author Type: Physician Type: Progress Notes Filed: 10/24/2024 13:34 Note Text: INPATIENT PROGRESS NOTE CHIEF COMPLAINT: post op medical management INTERVAL HPI: Pt this am noted to be lethargic and hypoxic. Was 60% on RA tbis am. Placed on NRB and able to be weaned to 3 L O2. Pt was le. Denies CP/SOB She received oxy 10 mg x2 and lyrica 150 mg along with Butrans patch Ordered for Narcan, pt perked up after Narcan and was irritable PHYSICAL EXAM: BP 129/60 Pulse 71 Temp (Src) 98.9 (Oral) Resp 18 Ht 5' 5 (1.65m) Wt 218 lb 0.6 oz (98.9kg) SpO2 94% BMI 36.28 kg/(m2). O2 Therapy: Nasal Cannula, Liters (Numeric Only): 3.0, %FIO2: (3L NC) GENERAL: lethargic , no distress, LUNGS: Lungs clear to auscultation, Good diaphragmatic excursion CARDIAC: Normal S1 and S2; no rubs, murmurs, or gallops ABDOMEN: Abdomen soft, non-tender, BS normal, No masses or organomegaly EXTREMITIES: no edema NEURO: diff keeping eyes open, able to follow simple commands, moves all extremities DATA: Diagnostic tests reviewed for today's visit: CBC, Coags, BMP, Mg, Phos Recent Labs 10/24/24 1000 10/24/24 0602 10/23/24 0222 WBC -- 10.06 10.60 HB -- 12.2 11.8 HCT -- 38.8 36.5 PLT -- 158 152 NA 134* -- 134* K 4.9 -- 4.8 CHLOR 100 -- 101 CO2 30 -- 27 BUN 17 -- 11 CREAT 1.03* -- 1.24* GLUC 122* -- 143* CA 8.4* -- 8.5 Problem List Status post total knee replacement, left (POA: Yes) Recent Labs 10/24/24 1100 10/24/24 0928 10/24/24 0837 10/23/24 1956 10/23/24 1603 10/23/24 1142 10/23/24 0657 10/22/242035 PCGLUCOSE 119* 118* 126* 174* 164* 190* 114* 225* Assessment/Plan # acute encephalopathy- 2/2 multiple sedative medications.t Improved with narcan initially but still remains lethargic #acute hypoxic/ hypercapnic respiratory failure- narcotic pain medications and untreated PABLO No fever/cough/leukocytosis. Pt denies CP/SOB. No focal neuro deficits. No signs of infection VBG shows resp acidosis with hypercapnia.will benefit from Bipap ICU consulted #S/P L TKR POD 2- oxy DCed and started on tramadol. Pain management consulted #IDDM type 2: c/w lantus and SSI BS fair #HTN:BP stable. cont with coreg 6/25 mg bid and imdur 30 mg daily. #CAD: cont with asa 81 ,imdur and coreg.not on statin 2/2 intolerance #CKD- cr improved/stable Plan of care discussed with: Provider, RN, Patient. SIGNATURE: Sarthak Venegas MD PATIENT NAME: Audra Archer DATE: October 24, 2024 TIME: 1:26 PM PAGER: GAS + CO PNL BLDV Collected: 5 1:13 PM Status: F Source: [facility] Order Comment: Specimen Type : VENOUS BLOOD SPECIMEN Ordering Facility: [facility] Address: [address] [place] [address] TYPE CODE TESTS RESULT OUT OF RANGE REFERENCE UNITS LAB 2746-6(LOINC) pH BldV 7.23 Low 7.32-7.42 LAB 18669-3(LOINC) pH temp adj BldV 7.23 Low 7.32-7.42 LAB 2020-4(LOINC) pCO2 BldV 76 High 42-55 mmHg LAB 18109-4(LOINC) pCO2 temp adj BldV 77 High 42-55 mmHg LAB 2705-2(LOINC) pO2 BldV 159 High 35-45 mmHg LAB 75949-1(LOINC) pO2 temp adj BldV 160 High 35-45 mmHg LAB 2711-0(LOINC) SaO2 % BldV 99 High 60-85 % LAB 1927-3(LOINC) Base excess BldV Calc-sCnc 2 0-2 mmol/L LAB 50888-7(LOINC) HCO3 BldV-sCnc 31 High 24-28 mmol/L LAB 2716-9(LOINC) OxyHgb MFr BldV 96 High 60-85 % LAB 2032-1(LOINC) COHgb MFr BldV 1.9 0.0-2.0 % Result Comment: Carboxyhemog lobin Reference Range for Smokers: 2.0-8.0% LAB 2614-6(LOINC) MetHgb MFr Bld 0.7 0.0-1.5 % LAB 2947-0(INC) Sodium Bld-sCnc 138 136-144 mmol/L LAB 6298-4(INC) Potassium Bld-sCnc 4.8 3.5-5.0 mmol/L LAB CHLWBBG CHLORIDE WHOLE BLOOD 102 97-105 mmol/L LAB 12109-2([facility]) Ca-I BldV-mCnc 1.24 1.08-1.30 mmol/L LAB 69493-1([facility]) Ca-I adj pH7.4 BldA-sCnc 1.13 1.08-1.30 mmol/L LAB 2339-0([facility]) Glucose Bld-mCnc 121 High 60-105 mg/dL LAB 60236-9([facility]) Lactate Bld-sCnc 0.6 0.5-2.2 mmol/L LAB 718-7([facility]) Hgb Bld-mCnc 11.4 Low 11.5-15.5 g/dL LAB 4544-3([facility]) Hct VFr Bld Auto 35.1 Low 36.0-46.0 % LAB VTMP TEMPERATURE, BODY 37.2 C LAB VO2TH O2 THERAPY NC = Nasal Cannula Performed By: #### 03687-0 # ### [facility] CLIA [id number] [address] [place] CONSULT Observed: 10/24/2024 11:30 AM Status: COMPLETED Source: [facility] HNO ID: [id number] Author: FATOU RUBIN MD Service: Pain Management Author Type: Physician Type: Consults Filed: 10/24/2024 12:40 Note Text: Name: AUDRA ARCHER Age: [age] year old PAIN MANAGEMENT: s/p Left TKA; chronic multifactorial pain, opiate dependent Pain Description: Patient still sleepy but easily arousable; answers questions appropriate. Denied pain Interval HPI: Patient confused, lethargic and hypoxic this morning; nursing notes reviewed. 60% room air. Placed on nonrebreather and oxygen weaned to 3 L. Patient given Narcan with improved level of alertness and clear speech. Patient refused VBG. 24H Comfort Meds: Tylenol 1 g every 8 hours x 3 Butrans 20 mcg patch Oxycodone 5-10 mg every 3 hours as needed 10 mg x 6 Lyrica 150 mg 3 times daily x 3 Tramadol 50 mg every 12 hours as needed x 0 Subjective HPI: 79-year-old female with history of debility, obesity BMI 36, PABLO (noncompliant with CPAP), CKD 3, insulin-dependent DM2 admitted 10/22 for left TKA. Patient had prior right [place]. Pain regimen before admission included Butrans 20 mcg weekly patch, Lyrica 150 mg 3 times daily On 10/24, patient received Narcan as noted above. Our team was asked to assist in pain management. Patient feels better when I saw her. Patient states she goes to Dr. Martin in [place] for pain management and her pain regimen includes Butrans 20 mcg patch; she is wearing patch on her right shoulder and to be changed on Tuesday. She also takes Lyrica 150 mg 3 times daily. She lives at home with her . OARRS Review: Reviewed, negative on PDMP. WIll review OARRS system Opiate dependent, Butrans 20 mcg weekly patch Current Facility-Administered Medications Medication Dose Route Frequency Provider Last Rate Last Admin traMADol 50 mg tab(s) (ULTRAM) 50 mg ORAL q 12 H PRN Jt Carrasco MD [START ON 10/27/2024] buprenorphine - REMOVE PATCH OTHER 1/WK Estiven Velazquez MD And buprenorphine - VERIFY PATCH OTHER q 8 H Estiven Velazquez MD [START ON 10/27/2024] buprenorphine 5 mcg/hour 1 patch (BUTRANS) 1 patch TRANSDERMAL 1/WK Estiven Velazquez MD And [START ON 10/27/2024] buprenorphine 15 mcg/hour 1 patch (BUTRANS) 1 patch TRANSDERMAL 1/WK Estiven Velazquez MD cetirizine 10 mg tab(s) (ZYRTEC) 10 mg ORAL DAILY Estiven Velazquez MD 10 mg at 10/24/24 0836 carvedilol 6.25 mg tab(s) (COREG) 6.25 mg ORAL BID w MEALS Estiven Velazquez MD 6.25 mg at 10/24/24834 citalopram hydrobromide 10 mg tablet (CeleXA) 10 mg ORAL DAILY Estiven Velazquez MD 10 mg at 10/24/24835 isosorbide mononitrate ER 30 mg tab(s) (IMDUR) 30 mg ORAL DAILY Estiven Velazquez MD 30 mg at 10/23/242124 nitroglycerin sublingual 0.4 mg tab(s) (NITROQUICK) 0.4 mg SUBLINGUAL q 5 MIN PRN Estiven Velazquez MD pantoprazole DR 40 mg tab(s) (PROTONIX) 40 mg ORAL BID Estiven Velazquez MD 40 mg at 10/24/24835 pregabalin 150 mg cap(s) (LYRICA) 150 mg ORAL TID Estiven Velazquez MD 150 mg at 10/24/24835 insulin glargine 48 Units injection (LANTUS SOLOSTAR, BASAGLAR KWIKPEN) 48 Units SUBCUTANEOUS AT BEDTIME Estiven Velazquez MD 48 Units at 10/23/242126 ondansetron 4 mg tab(s) (ZOFRAN) 4 mg ORAL q 6 H PRN Estiven Velazquez MD Or ondansetron (PF) 4 mg injection (ZOFRAN) 4 mg INTRAVENOUS q 6 H PRN Estiven Velazquez MD magnesium hydroxide 400 mg/5 mL 30 mL (MOM) 30 mL ORAL DAILY PRN Estiven Velazquez MD bisacodyl EC 10 mg tab(s) (DULCOLAX) 10 mg ORAL DAILY Estiven Velazquez MD 10 mg at 10/24/24834 aluminum-magnesium hydroxide-simethicone 200-200-20 mg/5 mL 30 mL 30 mL ORAL q 2 H PRN Estiven Velazquez MD ascorbic acid (vitamin C) 500 mg tab(s) (VITAMIN C) 500 mg ORAL BID w MEALS Estiven Velazquez MD docusate sodium 100 mg cap(s) (COLACE) 100 mg ORAL BID Estiven Velazquez MD 100 mg at 10/24/24835 senna 17.2 mg tab(s) (SENOKOT) 17.2 mg ORAL AT BEDTIME Estiven Velazquez MD 17.2 mg at 10/23/242125 aspirin, enteric coated 81 mg tab(s) 81 mg ORAL BID Estiven Velazquez MD 81 mg at 10/24/24 0836 NaCl 0.9% iv flush bag 20 mL INTRAVENOUS PRN Estiven Velazquez MD NaCl 0.9% iv infusion 75 mL/hr INTRAVENOUS CONTINUOUS Estiven Velazquez MD Paused at 10/23/24 2149 acetaminophen 1,000 mg tab(s) (TYLENOL) 1,000 mg ORAL q 8 H Estiven Velazquez MD 1,000 mg at 10/24/24 0548 dextrose 15 gram/32 mL 15 g (TRUEPLUS) 15 g ORAL PRN Estiven Velazquez MD Or glucagon 1 mg injection 1 mg INTRAMUSCULAR PRN Estiven Velazquez MD Or dextrose 10% iv bolus 12.5 g INTRAVENOUS PRN Estiven Velazquez MD magnesium lactate ER 84 mg tab(s) (MAGTAB) 84 mg ORAL AT BEDTIME Estiven Velazquez MD 84 mg at 10/23/24 2124 insulin lispro injection (rapid acting) (ADMElog) SUBCUTANEOUS w MEALS Estiven Velazquez MD 1 Units at 10/23/24 1650 Cetirizine (ZYRTEC) 10 mg cap, Take 10 mg by mouth once daily., Disp: , Rfl: , Taking nystatin (MYCOSTATIN) powder, APPLY EXTERNALLY TWICE DAILY, Disp: , Rfl: , Taking magnesium chloride (SLOW-MAG ORAL), Take 1-2 tablets by mouth daily at bedtime., Disp: , Rfl: , 10/21/2024 insulin lispro (HUMALOG U-100 INSULIN) 100 unit/mL injection, Inject 5-10 Units subcutaneously three times a day before meals. Based in glucose level, Disp: , Rfl: , 10/21/2024 buprenorphine (BUTRANS) 20 mcg/hour transdermal patch, 1 Patch one time a week., Disp: , Rfl: , Taking carvedilol (COREG) 6.25 mg tablet, Take 6.25 mg by mouth two times a day with meals., Disp: , Rfl: , 10/21/2024 citalopram hydrobromide (CELEXA) 10 mg tablet, Take 10 mg by mouth once daily., Disp: , Rfl: , 10/21/2024 isosorbide mononitrate ER (IMDUR) 30 mg 24 hr tablet, Take 30 mg by mouth once daily., Disp: , Rfl: , 10/21/2024 nitroglycerin sublingual (NITROQUICK) 0.4 mg SL tablet, Dissolve 0.4 mg under the tongue every 5 minutes as needed for chest pain., Disp: , Rfl: , Taking As Needed omeprazole (PRILOSEC) 40 mg capsule, Take 40 mg by mouth two times a day., Disp: , Rfl: , 10/21/2024 pregabalin (LYRICA) 150 mg capsule, Take 150 mg by mouth three times daily., Disp: , Rfl: , 10/21/2024 Menthol-Zinc Oxide (CALMOSEPTINE) 0.44-20.6 %, Apply to affected area two times a day as needed., Disp: 100 g, Rfl: 0 acetaminophen (TYLENOL) 325 mg tablet, Take 2 tablets by mouth every 6 hours as needed for pain., Disp: , Rfl: [Paused] LOW-DOSE ASPIRIN ORAL, 81 mg once daily., Disp: , Rfl: , 10/19/2024 TOUJEO MAX U-300 SOLOSTAR 300 unit/mL (3 mL) inpn, Inject 60 Units subcutaneously daily at bedtime., Disp: , Rfl: , 10/20/2024 DEXCOM G7 SENSOR beth, Inject 1 application subcutaneously as directed., Disp: , Rfl: Social History Tobacco Use Smoking status: Former Current packs/day: 0.00 Average packs/day: 3.0 packs/day for 45.0 years (135.0 ttl pk-yrs) Types: Cigarettes Start date: 12/1961 Quit date: 12/2006 Years since quittin.8 Smokeless tobacco: Never Vaping Use Vaping status: Never Used Substance Use Topics Alcohol use: Not Currently Drug use: Never FAMILY HISTORY Problem Relation Age of Onset Diabetes Mother Heart Mother Lung Cancer Mother PAST MEDICAL HISTORY Diagnosis Date Angina pectoris Chronic kidney disease, stage 3b (HCC) Coronary arteriosclerosis Depression GERD (gastroesophageal reflux disease) HLD (hyperlipidemia) HTN (hypertension) Neuropathy bilateral feet Obesity PABLO (obstructive sleep apnea) Primary osteoarthritis of left knee Right hip pain Tobacco abuse 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 PAST SURGICAL HISTORY Procedure Laterality Date APPENDECTOMY 1955 L'SCOPE CHOLECYSTECTOMY LIGATE FALLOPIAN TUBE PAST SURGICAL HISTORY OF C5 and C6 fusion with titanium PAST SURGICAL HISTORY OF Right 02/06/2024 right [place] TOTAL ABDOM HYSTERECTOMY TX INTER/NY/SUBTRCHNTRIC FEMORAL FX SCREW IMPLT Right 11/07/2021 ROS: All of the following reviewed and negative except as noted below: Significant per HPI GENERAL: no fever, chills, sweats, weight loss, fatigue, generalized weakness HEENT: no headache, vision changes, eye discomfort, hearing change, ear discomfort, sinus pain, nasal discharge or congestion, oral lesions, soreness, dental problem NECK: no adenopathy, discomfort, change in ROM CHEST: no shortness of breath, dyspnea on exertion, wheezing, cough, sputum production or chest pain HEART: no chest pain, palpitations, syncope ABDOMEN: no nausea, vomiting, constipation, diarrhea, abdominal pain : no dysuria, urgency, frequency, history of stones, incontinence NEURO: no confusion or alteration in consciousness, slurred speech, seizure, focal weakness EXTREMITIES: See HPI HEME: no new adenopathy, bruises, petechiae PSYCH: no depression, anxiety, agitation PHYSICAL EXAMINATION: GENERAL: Obese, tired; no acute distress; alert and oriented x 3; intact judgement and insight HEENT: no evidence of trauma; eyes clear; no hearing deficits apparent; nasal passages unremarkable; throat and mucous membranes clear NECK: supple without lymphadenopathy; no JVD; no thyromegaly CHEST: clear bilaterally to auscultation; normal chest movement; no rales or rhonchi HEART: regular rate and rhythm, normal S1 and S2, no murmurs, clicks, rubs, or gallops ABDOMEN: soft; nondistended; bowel sounds present; no hepatomegaly; no splenomegaly; no tenderness EXTREMITIES: Left knee dressing intact NEURO: no focal deficits; no confusion; no tremor SKIN: no rash; no skin breakdown; no decubitus lesions HEME: no bruising; no adenopathy PSYCH: no evidence of depression; no anxiety; no agitation; no apparent hallucinations BP (!) 104/47 Pulse 68 Temp 37.2 ?C (98.9 ?F) (Oral) Resp 18 Ht 165.1 cm (5' 5) Wt 98.9 kg (218 lb 0.6 oz) SpO2 96% BMI 36.28 kg/m? BMI 36.28 kg/(m2) Date 10/23/24699 - 10/24/2465810/24/24699 - 10/25/24 0659 Shift 6980-4611 1433-1357 3536-7144 24 Hour Total 8278-6731 6938-8371 2871-8346 24 Hour Total INTAKE PO 240 680 920 PO 240 680 920 IV 160 160 Volume (mL) (NaCl 0.9% iv infusion) 160 160 Shift Total 507 180 4348 OUTPUT Urine Urine Incontinence/Not Saved 2 x 2 x Urine Not Saved. 2 x 3 x 5 x # of BMs Number of BMs 0 x 0 x Shift Total Weight (kg) 98.9 98.9 98.9 98.9 98.9 98.9 98.9 98.9 ABNORMAL/NEW FINDINGS: NONE RADIOLOGY/DIAGNOSTICS: LABORATORY: CBC: Recent Labs 10/24/24 0602 WBC 10.06 RBC 4.21 HB 12.2 HCT 38.8 PLT 158 MCV 92.2 MCH 29.0 MPV 10.4 CMP: Recent Labs 10/24/24 1000 NA 134* K 4.9 CHLOR 100 CO2 30 BUN 17 CREAT 1.03* GLUC 122* CA 8.4* ANION 4* Heme: No results for input(s): RETICP, ABSRETIC, LD, LESLEY, FE, TIBC,TRANSFERSAT in the last 24 hours. ACTIVE PROBLEM LIST Intertrochanteric Fracture of Right Femur, Closed, Initial Encounter ([facility]) Obesity, Class II, Bmi 35-39.9 Anemia, Unspecified Stage 3b Chronic Kidney Disease (Hcc) Hypertension Hyperlipidemia Gastroesophageal Reflux Disease Diabetes Mellitus (Hcc) Depressive Disorder Pain in Right Hip Stage 3 Chronic Kidney Disease ([facility]) Arteriosclerosis of Coronary Artery Class 1 Obesity Due to Excess Calories With Body Mass Index (Bmi) of 34.0 to 34.9 in Adult Pablo (Obstructive Sleep Apnea) Tobacco Abuse Status Post Total Hip Replacement, Right Primary Osteoarthritis of Left Knee Preop Examination Status Post Total Knee Replacement, Left ASSESSMENT AND PLAN S/p left TKA 6/2 Opiate dependent before admission on Butrans 20 mcg weekly patch Episode this morning hypoxic respiratory failure, AMS; responded to Narcan per chart. High risk with opiate titration given obesity, PABLO (noncompliant with CPAP) Agree to discontinue oxycodone Continue home regimen Butrans 20 mcg weekly patch. To be changed 10/31 Tylenol 1 g every 8 hours Change Lyrica 150 mg twice daily for now Tramadol 50 mg every 6 hours as needed PT/OT; recommendation for SNF noted Thank you for this consult Fatou Rubin MD NURSING PROG Observed: 10/24/2024 10:07 AM Status: COMPLETED Source: [facility] HNO ID: [id number] Author: YOGI MATA, BILLY Service: ? Author Type: Registered Nurse Type: Nursing Progress Note Filed: 10/24/2024 13:00 Note Text: 0917 - PT in to see the pt. Per PT pt seems more confused then yesterday. Upon VS assessment, pt 60% on RA. Pt lethargic and unable to answer any orientation questions. RN applied non-rebreather to 15L to improve pt to 93-95%. CORK WIRER called. 0925 - Pt 100% on non-rebreather. Weaned to 3L NC. CORK WIRER canceled. MET nurse still at the bedside to evaluate the pt. Ortho notified and at the bedside as well. Orders for BMP and VBG received. Pain medication changed and pain management consulted. Pt's mental status still waxing and waning. 1027 - Pt still very lethargic. Dr. Venegas at the bedside. Narcan ordered and given. Pt more alert with clear speech. Pt refusing VBG redraw at this time stating that she does not want to be poked and prodded anymore. Dr. Venegas and Laura Krause notified via [employer]. 1245 - pt still very sleepy. VBG drawn at this time. Pt AANDOx2 at this time. RN instructed to restart fluids. Laura Krause and Dr. Venegas notified. BP 129/60 (83), 98.9, 71 BPM, 18 RR, 94% on 3L NC. BAS METAB 2000 PNL SERPL Collected: 08/2024 10:00 AM Status: F Source: [facility] Order Comment: Specimen Type : BLOOD SPECIMEN Ordering Facility: [facility] Address: [address] [place] [address] TYPE CODE TESTS RESULT OUT OF RANGE REFERENCE UNITS LAB 2345-7(INC) Glucose SerPl-[facility] 122 High 74-99 mg/dL Result Comment: The [place] Diabetes Association (ADA) provides guidance for cutoff values for fasting glucose and random glucose. The ADA defines fasting as no caloric intake for at least 8 hours. Fasting plasma glucose results between 100 to 125 mg/dL indicate increased risk for diabetes (prediabetes). Fasting plasma glucose results greater than or equal to 126 mg/dL meet the criteria for diagnosis of diabetes. In the absence of unequivocal hyperglycemia, results should be confirmed by repeat testing. In a patient with classic symptoms of hyperglycemia or hyperglycemic crisis, random plasma glucose results greater than or equal to 200 mg/dL meet the criteria for diagnosis of diabetes. Reference: Standards of Medical Care in Diabetes 2016, [place] [employer] Association. Diabetes Care. 2016.39(Suppl 1). LAB 3094-0(LOINC) BUN SerPl-mCnc 17 7-21 mg/ dL LAB 2160-0(LOINC) Creat SerPl-mCnc 1.03 High 0.58-0.96 mg/dL LAB 2951-2(LOINC) Sodium SerPl-sCnc 134 Low 136-144 mmol/L LAB 2823-3(LOINC) Potassium SerPl-sCnc 4.9 3.7-5.1 mmol/L LAB 2075-0(LOINC) Chloride SerPl-sCnc 100 98-107 mmol/L LAB 2028-9(LOINC) CO2 SerPl-sCnc 30 22-30 mmo l/L LAB 1863-0(LOINC) Anion Gap4 SerPl-sCnc 4 Low 8-15 mmol/L LAB 11254-5(LOINC) Calcium SerPl-mCnc 8.4 Low 8.5-10.2 mg/dL LAB 41486-7(LOINC) Creatinine + eGFR Pnl SerPlBld 55 Low >=60 mL/min/1. 73m??? Result Comment: Estimated Gl omerular Filtration Rate (eGFR) is calculated using the 2020 CKD-EPI creatinine equation. This equation utilizes serum creatinine, sex, and age as parameters. The creatinine assay has traceable calibration to isotope dilution-mass spectrometry. Refer to KDIGO guidelines for clinical interpretation. In patients with unstable renal function, e.g. those with acute kidney injury, the eGFR may not accurately reflect actual GFR. Performed By: #### [id number] # ### [facility] CLIA [id number] [address] OF [place] THERAPY NT Observed: 10/24/2024 9:33 AM Status: COMPLETED Source: [facility] HNO ID: [id number] Author: DEDRICK PORTILLO PTA Service: Physical Therapy Author Type: Circle Edger Type: Therapy (PT/OT/Speech/Resp) Filed: 10/24/2024 09:38 Note Text: Attestation signed by Jeremy Broussard PT at 10/24/2024 9:43 AM I reviewed and agree with the documentation corresponding to this therapy visit. SIGNATURE: Jeremy Broussard PT DATE: October 24, 2024 TIME: 9:43 AM Physical Therapy Treatment Summary SERVICE DATE: 10/24/2024 SERVICE TIME: 916 to 927 ROOM: [id number] PT 6 Clicks Score: 17 DISCHARGE RECOMMENDATIONS Subacute/SNF Recommended Discharge Disposition Due to: Functional deficits requiring ongoing therapy service prior to discharge home., Functional status decline, Requires multiple therapy disciplines ASSESSMENT Response to Therapy Interventions: Cognitive Deficits, Limited Participation, Low Activity Tolerance Patient very painful this morning. Patient confused with questioning. Patient stated being in hospital, but unable to state why. Patient wanting call light taken, stating going to spill on her. Vitals taken, secondary to confusion--nursing called into room, secondary to spo2 at 60%. Nursing stated going to call a rapid. Vital Signs BP: (!) 118/47 SpO2: (!) 60 % O2 Therapy: Room Air PRECAUTIONS Bed/Chair Alarm, Fall Risk, Lines/Tubes/Drains, Total Knee Replacement, Weight Bearing Restrictions Left Lower Extremity Weight Bearing Status: WBAT CURRENT HOSPITAL COURSE presented for L TKA Relevant Past Medical History: R femur fx s/p fixation, CKD, DM, depression, PABLO, R [place], L knee OA HOME LIVING Patient Lives With: Family Assistance Available: Part-Time Entry To Home: Stairs, With Rail Number Of Stairs Into Home: 3 Number Of Stairs To Bed/Bath: 0 Tub/Shower Type: tub shower Laundry: family can complete Equipment Owned: Walker- Wheeled, Cane, Shower Chair, Grab Bars- Shower, Finish Mender PRIOR FUNCTIONAL LEVEL Required Assistance Assistance Required With: Shopping, Transportation ambulates with wh walker; family takes care of household tasks SUBJECTIVE painful, confused THERAPY DIAGNOSIS Reduced mobility-other, Muscle Weakness (generalized), Unsteadiness on feet, Abnormalities of gait and mobility-other TREATMENT INTERVENTIONS Therapeutic Activity (91411) Therapeutic Activity (97981) Treatment Minutes: 11 $ Therapeutic Activity (21273) Billed Units: 1 unit patient educated on benefit of mobility, negative affects associated with immobility. Patient assisted with gentle LLE anti embolic exercises. Vital taken, secondary to confusion and pale appearance, see above. Nursing called into room, secondary to low O2. Patient with nursing staff at end of session, bed alarm on. Timed Code Treatment (minutes): 11 Skilled Treatment Time (minutes): 11 TRAINING AND EDUCATION PROVIDED Bed Mobility, Benefits of In-Hospital Mobility, Positioning THERAPEUTIC SKILLS USED Activity Dosing, Assessment of Tolerance Including Vitals Response to Activity, Cues for Sequencing/Proper Technique for Activity, Cuing Tactile, Cuing Verbal, Cuing Visual, Movement Facilitation FUNCTIONAL STATUS mobility performed during session in bold, other mobility completed during prior session and may no longer be correct or appropriate to complete. Bed Mobility Supine To Sit: Minimal Assistance Sit to Supine: Minimal Assistance Transfers Sit To Stand: Minimal Assistance Stand To Sit: Minimal Assistance, Additional Information Bed to Chair Gait Minimal Assistance, Additional Information Gait Device: Wheeled Walker Gait Distance (feet): 25'x2 Stairs GOALS Transfer Supine to/from Sit with: Contact Guard Assistance Transfer Sit to/from Stand with: Contact Guard Assistance Ambulate with: Contact Guard Assistance Distance: 20'x2 Device: Wheeled Walker Goal: x12 reps L TKA protocol exercises Rehab Potential: Good Progress Toward Goals: Progressing slower than expected ACUTE CARE TREATMENT PLAN PT Frequency: Twice Daily Treatment Interventions: Education, Joint Mobility, Strengthening, Functional Mobility Training, Balance Training Plan for Next Visit: Continue per POC SIGNATURE: Dedrick Portillo PTA PATIENT NAME: Audra Archer DATE: October 24, 2024 TIME: 9:33 AM CASE MANAGEM Observed: 10/24/2024 9:00 AM Status: COMPLETED Source: [facility] HNO ID: [id number] Author: MAHNAZ JAMES RN Service: Care Management Author Type: Registered Nurse Type: Care Mgt Progress Note Filed: 10/24/2024 13:13 Note Text: CARE MANAGEMENT PROGRESS NOTE SERVICE DATE: 10/24/2024 SERVICE TIME: 9:00 AM LOS: 1 day Needs Prior to Discharge: Precertification, Discharge Transportation [facility] is able to accept. Patient will need precert prior to DC. The facility is submitting. Addendum @ 1:13 PM: Notified by [facility] that patient has precert to admit. Auth is good 10/24-10/26. Ortho FOREIGN BROADCAST SPECIALIST notified. No DC anticipated today. SIGNATURE: Cyndi James RN PATIENT NAME: Audra Archer DATE: October 24, 2024 TIME: 10:19 AM PROGRESS Observed: 10/24/2024 6:03 AM Status: COMPLETED Source: [facility] HNO ID: [id number] Author: NASH MANZANARES MD Service: Orthopaedic Surgery Author Type: Physician Type: Progress Notes Filed: 10/24/2024 11:56 Note Text: I evaluated the patient and personally participated in the richards components. I agree with the resident's findings and plan with the following revisions and/or additions: Events noted. Sleepy but arousable. Await Pain management input. Continue supportive care. Signature: Nash Manzanares MD Service Date: 10/24/2024 Service Time: 11:55 AM Orthopaedic Surgery Inpatient Progress Note Assessment Audra Archer is a 79 year old female who is POD #2 status-post L TKA. Plan -Pain control -Weight Bearing As Tolerated LLE -Dressing management - Mepilex X7 days, SuperACE X1day taken off -Reg diet -PT/OT patient has Rehab bed at [facility], skilled for SNF -DVT ppx: Aspirin 81mg BID -Post op Abx 2g AncefX2 doses -D/C planning: Rehab at [facility] -Follow up: With Dr. Manzanares in 10-14 days Subjective No acute events overnight. Painful this morning, had just received oxy prior to my encounter. No fevers, chills, chest pain, or shortness of breath. Physical Examination Vitals BP 153/62 Pulse 70 Temp 37.1 ?C (98.7 ?F) (Oral) Resp 20 Ht 165.1 cm (5' 5) Wt 98.9 kg (218 lb 0.6 oz) SpO2 94% BMI 36.28 kg/m? General Alert and oriented. No acute distress. Cooperative with interview. Left Lower Extremity Dressing CDI SILT Galindo/Sa/DP/SP/T. Motor intact EHL/DF/PF. DP/PT pulses palpable; BCR all digits. Labs Recent Labs 10/23/24 0222 NA 134* K 4.8 CHLOR 101 CO2 27 BUN 11 CREAT 1.24* GLUC 143* ANION 6* CA 8.5 WBC 10.60 HB 11.8 HCT 36.5 PLT 152 Imaging WARD Peng MD October 24, 2024 6:04 AM INPATIENT ATTENDING: Dr. Manzanares, Nash Cole MD, Elective High-Risk Geriatric Patient Vulnerabilities: Impaired Functional Status and Impaired Mobility Diet: DIET CARBOHYDRATE CONTROLLED Recommendations: Cognition: No Cognitive Impairment bCAM Score (Calc): Negative Delirium Screen Geriatric Consult (Age over 85 or impaired cognition):Consult not needed Palliative Care/Hospice: Consult not required Rehab/Therapy: PT/OT Recommendations: PT: Recommended Discharge Disposition: Subacute/SNF OT: Recommended Discharge Disposition: Subacute/SNF Swallow: Swallow Screening Result - Step 2: PASSED Swallow Screen - Patient Able To Swallow 3 Ounce Cup of Water Without Exhibiting Signs Of Aspiration Speech Recommendations: Speech: Speech Diet: Nutrition: Consult not required Nutrition Recommendations: MST: Total MST Score (Calculated): 0 Quality Consultant: Pharmacy: Consult not needed Social Work: NA Anticipated Discharge Disposition: CBC PNL BLD AUTO Collected: 10/24/2024 6:02 AM Statu s: F Source: [facility] Order Comment: Specimen Type : BLOOD SPECIMEN Ordering Facility: [facility] Address: [address] [place] [address] TYPE CODE TESTS RESULT OUT OF RANGE REFERENCE UNITS LAB 6690-2(LOINC) WBC # Bld Auto 10.06 3.70-11.00 k/uL LAB 789-8(LOINC) RBC # Bld Auto 4.21 3.90-5.20 m/ uL LAB 718-7(LOINC) Hgb Bld-mCnc 12.2 11.5-15.5 g/dL LAB 4544-3(LOINC) Hct VFr Bld Auto 38.8 36.0-46.0 % LAB 787-2(LOINC) MCV RBC Auto 92.2 80.0-100.0 fL LAB 785-6(LOINC) MCH RBC Qn Auto 29.0 26.0-34.0 pg LAB 786-4(LOINC) MCHC RBC Auto-mCnc 31.4 30.5-36.0 g/dL LAB 42912-8(LOINC) RDW RBC-Rto 13.8 11.5-15.0 % LAB 777-3(LOINC) Platelet # Bld Auto 158 150-400 k/uL LAB 95025-9(LOINC) PMV Bld Auto 10.4 9.0-12.7 fL LAB 771-6(LOINC) nRBC # Bld Auto <0.01 <0.01 k/uL Performed By: #### [id number] # ### [facility] CLIA [id number] [address] NURSING PROG Observed: 10/23/2024 9:48 PM Status: COMPLETED Source: [facility] HNO ID: [id number] Author: BHARGAV ROSS RN Service: ? Author Type: Registered Nurse Type: Nursing Progress Note Filed: 10/24/2024 00:50 Note Text: 2148: Patient's PIV infiltrated, patient requesting for it not to be replaced. Patient only receiving IVF via IV, declining prn morphine. Per Kaci Velazquez of [facility] for no PIV. NS stopped at this time. PROGRESS Observed: 10/23/2024 4:06 PM Status: COMPLETED Source: [facility] HNO ID: [id number] Author: SARTHAK VENEGAS MD Service: Hospital Medicine Author Type: Physician Type: Progress Notes Filed: 10/23/2024 16:10 Note Text: INPATIENT PROGRESS NOTE CHIEF COMPLAINT: post op medical management INTERVAL HPI: no new complaints. No CP/SOB Pt feels her dexcom and finger stick are not showing similar results PHYSICAL EXAM: BP 103/52 Pulse 74 Temp (Src) 98.7 (Oral) Resp 18 Ht 5' 5 (1.65m) Wt 218 lb 0.6 oz (98.9kg) SpO2 94% BMI 36.28 kg/(m2). O2 Therapy: Room Air, Liters (Numeric Only): 2 GENERAL: Alert, no distress, cooperative LUNGS: Lungs clear to auscultation, Good diaphragmatic excursion CARDIAC: Normal S1 and S2; no rubs, murmurs, or gallops ABDOMEN: Abdomen soft, non-tender, BS normal, No masses or organomegaly EXTREMITIES: no edema DATA: Diagnostic tests reviewed for today's visit: CBC, Coags, BMP, Mg, Phos Recent Labs 10/23/24 0222 WBC 10.60 HB 11.8 HCT 36.5 PLT 152 NA 134* K 4.8 CHLOR 101 CO2 27 BUN 11 CREAT 1.24* GLUC 143* CA 8.5 Problem List Status post total knee replacement, left (POA: Yes) Recent Labs 10/23/24 1603 10/23/24 1142 10/23/24 0657 10/22/24 2036 10/22/24 1637 10/22/24 1405 10/22/24 1203 10/22/24 1058 PCGLUCOSE 164* 190* 114* 225* 127* 165* 175* 80 Assessment/Plan S/P L TKR POD 1- pain control per primary team. Butrans reordered per primary team along with lyrica 150 mg tid. IDDM type 2: c/w lantus and SSI BS fair HTN:BP stable. cont with coreg 6/25 mg bid and imdur 30 mg daily. CAD: cont with asa 81 ,imdur and coreg.not on statin 2/2 intolerance CKD- cr stable Plan of care discussed with: Provider, RN, Patient. SIGNATURE: Sarthak Venegas MD PATIENT NAME: Audra Archer DATE: October 23, 2024 TIME: 4:06 PM PAGER: THERAPY NT Observed: 10/23/2024 4:02 PM Status: COMPLETED Source: [facility] HNO ID: [id number] Author: DEDRICK PORTILLO PTA Service: Physical Therapy Author Type: Circle Edger Type: Therapy (PT/OT/Speech/Resp) Filed: 10/23/2024 16:04 Note Text: Attestation signed by Jeremy Broussard PT at 10/23/2024 4:11 PM I reviewed and agree with the documentation corresponding to this therapy visit. SIGNATURE: Jeremy Broussard PT DATE: October 23, 2024 TIME: 4:11 PM Physical Therapy Treatment Summary SERVICE DATE: 10/23/2024 SERVICE TIME: 1530 to 1557 ROOM: [id number] PT 6 Clicks Score: 17 DISCHARGE RECOMMENDATIONS Subacute/SNF Recommended Discharge Disposition Due to: Functional deficits requiring ongoing therapy service prior to discharge home., Functional status decline, Requires multiple therapy disciplines ASSESSMENT Response to Therapy Interventions: Good Participation in Activities Patient with improved gait distances this session. Patient continues to require minimal assist to safely mobilize at this time. Patient below baseline functioning of independent. Patient continues to be recommended for subacute/SNF to improve strength, balance, endurance, increased ambulation distances with normalize gait pattern, and increased independence with functional task performance/mobility to prior level of function. Anticipate that patient will require daily (5x/wk) skilled therapy in a post-acute facility at the time of acute hospital discharge. Additional personnel present during visit: Maria G Zacarias Barriers to discharge to home include: Needing minimal for functional mobility including bed mobility, transfers, and gait New decrease in endurance affecting their mobility at home Change in ability to manage ADLs/IADLs Change in functional strength from baseline Lives alone and/or has no reliable assistance Patient requiring physical assist with mobility, which is a change from baseline Strategies to reduce barriers include: Patient should be up to the bathroom or bedside commode for toileting Patient should be up to the chair 3x/day for meals Limit external catheter usage while encouraging increased mobility to the bathroom Limit time in bed Encourage patient participation in their own ADLs as able while in the hospital. Follow Therapy recommendations to nursing (found in nursing SBAR handoff) PRECAUTIONS Bed/Chair Alarm, Fall Risk, Lines/Tubes/Drains, Total Knee Replacement, Weight Bearing Restrictions Left Lower Extremity Weight Bearing Status: WBAT CURRENT HOSPITAL COURSE presented for L TKA Relevant Past Medical History: R femur fx s/p fixation, CKD, DM, depression, PABLO, R [place], L knee OA HOME LIVING Patient Lives With: Family Assistance Available: Part-Time Entry To Home: Stairs, With Rail Number Of Stairs Into Home: 3 Number Of Stairs To Bed/Bath: 0 Tub/Shower Type: tub shower Laundry: family can complete Equipment Owned: Walker- Wheeled, Cane, Shower Chair, Grab Bars- Shower, Finish Mender PRIOR FUNCTIONAL LEVEL Required Assistance Assistance Required With: Shopping, Transportation ambulates with wh walker; family takes care of household tasks SUBJECTIVE pleasant, agreeable to PT session THERAPY DIAGNOSIS Reduced mobility-other, Muscle Weakness (generalized), Unsteadiness on feet, Abnormalities of gait and mobility-other TREATMENT INTERVENTIONS Therapeutic Exercise (54906), Therapeutic Activity (74335), Gait Training (21821) Therapeutic Exercise (69058) Treatment Minutes: 15 $ Therapeutic Exercise (10429) Billed Units: 1 unit Patient completed left total knee arthroplasty protocol (ankle pump, quad set, gluteal set, heel slide, hip abd/add, straight leg raise, short arc quad, long arc quad) x 12reps with minimal amount of assist. Patient demonstrated fair quad control with exercises. Patient demonstrates 4 to 60 of ROM to left knee heel slides. Ice applied to surgical knee and elevated on pillow and/or with foot of bed elevated. Therapeutic Activity (34320) Treatment Minutes: 3 $ Therapeutic Activity (25477) Billed Units: 0 units cuing/assist of proper movements/techniques with bed mobility, scooting, and transfers. Positioned for comfort/edema control at end of session. Bed alarm on. Gait Training (62815) Treatment Minutes: 9 $ Gait Training (04967) Billed Units: 1 unit cuing for proper posture, heel strike, step length, walker management, safety with turning to avoid pivoting. Timed Code Treatment (minutes): 27 Skilled Treatment Time (minutes): 27 TRAINING AND EDUCATION PROVIDED Assistive Device Use, Bed Mobility, Exercise Program, Gait Pattern, Reduction of Deviations, Transfers, Positioning THERAPEUTIC SKILLS USED Cues for Sequencing/Proper Technique for Activity, Cuing Tactile, Cuing Verbal, Cuing Visual, Facilitation of Joint Range of Motion, Movement Facilitation, Physical Assist, Postural Alignment Correction FUNCTIONAL STATUS mobility performed during session in bold, other mobility completed during prior session and may no longer be correct or appropriate to complete. Bed Mobility Supine To Sit: Minimal Assistance HOB at 30 degrees, assist with LEs via long sit pivot Sit to Supine: Minimal Assistance assist with LEs via reverse long sit pivot Transfers Sit To Stand: Minimal Assistance cuing for proper UE support, sliding LLE out for pain relief, powering up with LEs Stand To Sit: Minimal Assistance, Additional Information cuing/assist to square up to seated surface, proper UE support, sliding LLE out for pain relief. assist with eccentric control Bed to Chair Gait Minimal Assistance, Additional Information cuing for proper posture, heel strike, step length, reciprocal stepping, cuing to avoid pivoting with turning, and proper walker management. Gait Device: Wheeled Walker General Deviations/Observations: Antalgic gait, Elvia decreased, Difficulty changing direction/turning, Non-functional gait speed, Step length decreased Gait Distance (feet): 25'x2 Stairs BALANCE Static Sitting Balance: Good Dynamic Sitting Balance: Good Static Standing Balance: Fair Dynamic Standing Balance: Fair GOALS Transfer Supine to/from Sit with: Contact Guard Assistance Transfer Sit to/from Stand with: Contact Guard Assistance Ambulate with: Contact Guard Assistance Distance: 20'x2 Device: Wheeled Walker Goal: x12 reps L TKA protocol exercises Rehab Potential: Good Progress Toward Goals: Progressing as expected ACUTE CARE TREATMENT PLAN PT Frequency: Twice Daily Treatment Interventions: Education, Joint Mobility, Strengthening, Functional Mobility Training, Balance Training Plan for Next Visit: Continue per POC SIGNATURE: Dedrick Portillo PTA PATIENT NAME: Audra Archer DATE: October 23, 2024 TIME: 4:02 PM THERAPY NT Observed: 10/23/2024 12:15 PM Status: COMPLETED Source: [facility] HNO ID: [id number] Author: GORDO TAMAYO OTR/Jovanny Service: Occupational Therapy Author Type: Occupational Therapist Type: Therapy (PT/OT/Speech/Resp) Filed: 10/23/2024 12:18 Note Text: Occupational Therapy Evaluation Summary SERVICE DATE: 10/23/2024 SERVICE TIME: 1103 to 1142 ROOM: [place] [address] ([place] OR [place] OP) OT 6 Clicks Score: 17 DISCHARGE RECOMMENDATIONS Subacute/SNF Recommended Discharge Disposition Due to: Functional deficits requiring ongoing therapy service prior to discharge home., ADL impairment, Anticipated community discharge, Functional status decline, Requires multiple therapy disciplines ASSESSMENT Response to Therapy Interventions: Good Participation in Activities, Requires Additional Time to Complete Activities PRECAUTIONS Bed/Chair Alarm, Fall Risk, Lines/Tubes/Drains, Total Knee Replacement, Weight Bearing Restrictions Left Lower Extremity Weight Bearing Status: WBAT CURRENT HOSPITAL COURSE presented for L TKA Relevant Past Medical History: R femur fx s/p fixation, CKD, DM, depression, PABLO, R [place], L knee OA HOME LIVING Patient Lives With: Family Assistance Available: Part-Time Entry To Home: Stairs, With Rail Number Of Stairs Into Home: 3 Number Of Stairs To Bed/Bath: 0 Tub/Shower Type: tub shower Laundry: family can complete Equipment Owned: Walker- Wheeled, Cane, Shower Chair, Grab Bars- Shower, Finish Mender PRIOR FUNCTIONAL LEVEL Required Assistance Assistance Required With: Shopping, Transportation ambulates with wh walker; family takes care of household tasks SUBJECTIVE Patient is agreeable to OT session COGNITION Responsiveness: Alert, Awake Follows Commands: 2-step Commands 4AT Score: 0 (10/23/24) Delirium Positive/Negative: Negative (10/23/24) THERAPY DIAGNOSIS Decreased activities of daily living (ADL) TREATMENT INTERVENTIONS Evaluation, Self Chcf Management (73732) Timed Code Treatment (minutes): 23 Skilled Treatment Time (minutes): 39 $ Evaluation - Low (40609) Billed Units: 1 unit Self Chcf Management (50750) Treatment Minutes: 23 $ Self Chcf Management (24903) Billed Units: 2 units TRAINING AND EDUCATION PROVIDED Activity Adaptation/Compensatory Strategies, Adaptive Equipment/DME, Benefits of In-Hospital Mobility, Discharge Planning, Expected Functional Level, Functional Mobility Involving ADLs, Lower Extremity Dressing, Grooming Tasks, Role of Occupational Therapy, Toileting , Transfer - Toilet/Commode, Transfer - Sit to Stand, Upper Extremity Dressing THERAPEUTIC SKILLS USED Activity Dosing, Assessment of Tolerance Including Vitals Response to Activity, Cues for Sequencing/Proper Technique for Activity, Cuing Tactile, Cuing Verbal, Physical Assist, Therapeutic Use of Self, Teach-Back for Education FUNCTIONAL STATUS Activities of Daily Living Assist Level Additional Information Feeding Independent Grooming Contact Guard Assistance Cues for participation in hand hygiene following toileting task, fall guarding assist at sink Bathing Upper Body Stand By Assistance Bathing Lower Body Moderate Assistance Dressing Upper Body Minimal Assistance Dressing Lower Body Moderate Assistance Instruction in compensatory strategy, cues to dress surgical leg first, limited functional reach, increased time to complete, would benefit from adaptive equipment Toileting Minimal Assistance Limited functional reach for completion of daniel care, would benefit from toileting tongs Mobility Assist Level Additional Information Bed Mobility Sit to Stand Minimal Assistance Cues for hand placement, cues to slide surgical leg forward Stand to Sit Contact Guard Assistance Bed to Chair Toilet/Commode Minimal Assistance Cues to transition hand to grab bar Shower Functional Mobility Contact Guard Assistance Functional Mobility Device: Wheeled Walker To/from bathroom, cues for safe walker approximation, cues for sequencing RANGE OF MOTION WFL STRENGTH WFL BALANCE Static Sitting Balance: Good Dynamic Sitting Balance: Good Static Standing Balance: Fair Dynamic Standing Balance: Fair GOALS Grooming with: Stand By Assistance Upper Body Dressing with: Set Up Lower Body Bathing with: Minimal Assistance Lower Body Dressing with: Minimal Assistance Toilet Hygiene with: Stand By Assistance Toilet Transfer with: Stand By Assistance Rehab Potential: Good Good Rehab Potential Due To: Current objective clinical presentation ACUTE CARE TREATMENT PLAN OT Frequency: 2 Times Per Week Treatment Interventions: Education, Self Care/Home Management, Functional Mobility Training, Balance Training, Energy Conservation Training SIGNATURE: MENDEL Rincon PATIENT NAME: Audra Archer DATE: October 23, 2024 TIME: 12:15 PM CASE MANAGEM Observed: 10/23/2024 10:18 AM Status: COMPLETED [id number] Author: GEORGINA MURRAY RN Service: Care Management Author Type: Registered Nurse Type: Care Mgt Progress Note Filed: 10/23/2024 10:20 Note Text: CARE MANAGEMENT PROGRESS NOTE SERVICE DATE: 10/23/2024 SERVICE TIME: 1019 LOS: 1 day [place] of Choice Given: Yes Level of Care Discussed: Longterm Facility Financial Disclosure Provided: Yes Provider List: Longterm Facility Provider list within the patient's requested geographic area shared with the patient/family: Yes within: 10 miles Quality and resource use metrics shared with the patient that are relevant to the patient's goals of care and treatment preferences:: Yes Chart reviewed, patient awaiting bed on surgical unit. S/p L [place]. PT recommending SNF. [facility], she has completed rehabilitation there in the past. Care management will continue to follow for transitional planning. SIGNATURE: Georgina Murray RN PATIENT NAME: Audra Archer DATE: October 23, 2024 TIME: 10:19 AM ALLIED HEALTH Observed: 10/23/2024 9:28 AM Status: COMPLETED Source: [facility] HNO ID: [id number] Author: MABLE PORTILLO RN Service: Nursing Author Type: Registered Nurse Type: Allied Health Filed: 10/23/2024 09:29 Note Text: ANCILLARY ORTHOPEDIC [employer]LA[employer] PROGRESS NOTE SERVICE DATE: 10/23/2024 SERVICE TIME: 0915 Met with patient in PACU, she is up in chair, doing well. [facility], she went there for previous joint surgery last fall. She has all DME needs, does lies alone with no consistent help at home. SIGNATURE: Mable Portillo RN PATIENT NAME: Audra Whittenrose DATE: October 23, 2024 TIME: 9:28 AM PAGER/CONTACT #: [phone] THERAPY NT Observed: 10/23/2024 8:35 AM Status: COMPLETED Source: [facility] HNO ID: [id number] Author: DEDRICK PORTILLO PTA Service: Physical Therapy Author Type: Circle Edger Type: Therapy (PT/OT/Speech/Resp) Filed: 10/23/2024 08:38 Note Text: Attestation signed by Jeremy Broussard PT at 10/23/2024 9:02 AM I reviewed and agree with the documentation corresponding to this therapy visit. SIGNATURE: Jeremy Broussard PT DATE: October 23, 2024 TIME: 9:02 AM Physical Therapy Treatment Summary SERVICE DATE: 10/23/2024 SERVICE TIME: 800 to 824 ROOM: [place] [address] ([place] OP) PT 6 Clicks Score: 15 DISCHARGE RECOMMENDATIONS Subacute/SNF Recommended Discharge Disposition Due to: Functional deficits requiring ongoing therapy service prior to discharge home., Functional status decline, Requires multiple therapy disciplines ASSESSMENT Response to Therapy Interventions: Good Participation in Activities Patient with improved gait distances this session. Patient continues to require increased levels of assist with all mobility. Patient continues to be recommended for subacute/SNF to improve strength, balance, endurance, increased ambulation distances with normalize gait pattern, and increased independence with functional task performance/mobility to prior level of function. Anticipate that patient will require daily (5x/wk) skilled therapy in a post-acute facility at the time of acute hospital discharge. Additional personnel present during visit: Maria G Zacarias PRECAUTIONS Bed/Chair Alarm, Fall Risk, Lines/Tubes/Drains, Total Knee Replacement, Weight Bearing Restrictions Left Lower Extremity Weight Bearing Status: WBAT CURRENT HOSPITAL COURSE presented for L TKA Relevant Past Medical History: R femur fx s/p fixation, CKD, DM, depression, PABLO, R [place], L knee OA HOME LIVING Patient Lives With: Family Assistance Available: Part-Time Entry To Home: Stairs, With Rail Number Of Stairs Into Home: 3 Number Of Stairs To Bed/Bath: 0 Tub/Shower Type: tub shower Laundry: family can complete Equipment Owned: Walker- Wheeled, Cane, Shower Chair, Grab Bars- Shower, Finish Mender PRIOR FUNCTIONAL LEVEL Required Assistance Assistance Required With: Shopping, Transportation ambulates with wh walker; family takes care of household tasks SUBJECTIVE pleasant, agreeable to PT session THERAPY DIAGNOSIS Reduced mobility-other, Muscle Weakness (generalized), Unsteadiness on feet, Abnormalities of gait and mobility-other TREATMENT INTERVENTIONS Therapeutic Exercise (51628), Therapeutic Activity (95199), Gait Training (05429) Therapeutic Exercise (73327) Treatment Minutes: 13 $ Therapeutic Exercise (49438) Billed Units: 1 unit Patient completed left total knee arthroplasty protocol (ankle pump, quad set, gluteal set, heel slide, hip abd/add, straight leg raise, short arc quad, long arc quad) x 10reps with min/mod amount of assist. Patient demonstrated fair quad control with exercises. Patient demonstrates 4 to 60 of ROM to left knee heel slides. Ice applied to surgical knee and elevated on pillow and/or with foot of bed elevated. Therapeutic Activity (20670) Treatment Minutes: 2 $ Therapeutic Activity (39192) Billed Units: 0 units cuing/assist for proper movements/techniques with scooting, transfers. Educated on proper ice/elevation. Positioned for comfort at end of session. Gait Training (88400) Treatment Minutes: 9 $ Gait Training (64491) Billed Units: 1 unit cuing for proper posture, heel strike, step length, walker safety, safety with turning. Slow elvia. Timed Code Treatment (minutes): 24 Skilled Treatment Time (minutes): 24 TRAINING AND EDUCATION PROVIDED Assistive Device Use, Exercise Program, Gait Pattern, Reduction of Deviations, Positioning, Transfers THERAPEUTIC SKILLS USED Cues for Sequencing/Proper Technique for Activity, Cuing Tactile, Cuing Verbal, Cuing Visual, Physical Assist, Facilitation of Joint Range of Motion, Movement Facilitation FUNCTIONAL STATUS mobility performed during session in bold, other mobility completed during prior session and may no longer be correct or appropriate to complete. Bed Mobility Supine To Sit: Moderate Assistance, Additional Information Sit to Supine: Moderate Assistance, Additional Information Transfers Sit To Stand: Minimal Assistance cuing for proper UE support, sliding LLE out for pain relief, powering up with LEs Stand To Sit: Minimal Assistance, Additional Information cuing/assist to square up to seated surface, proper UE support, sliding LLE out for pain relief. assist with eccentric control Bed to Chair Gait Minimal Assistance, Additional Information cuing for proper posture, heel strike, step length, reciprocal stepping, cuing to avoid pivoting with turning, and proper walker management. Gait Device: Wheeled Walker General Deviations/Observations: Antalgic gait, Elvia decreased, Difficulty changing direction/turning, Non-functional gait speed, Step length decreased Gait Distance (feet): 15'x2 Stairs BALANCE Static Sitting Balance: Good Dynamic Sitting Balance: Good Static Standing Balance: Fair Dynamic Standing Balance: Fair GOALS Transfer Supine to/from Sit with: Contact Guard Assistance Transfer Sit to/from Stand with: Contact Guard Assistance Ambulate with: Contact Guard Assistance Distance: 20'x2 Device: Wheeled Walker Goal: x12 reps L TKA protocol exercises Rehab Potential: Good Progress Toward Goals: Progressing as expected ACUTE CARE TREATMENT PLAN PT Frequency: Twice Daily Treatment Interventions: Education, Joint Mobility, Strengthening, Functional Mobility Training, Balance Training Plan for Next Visit: Continue per POC SIGNATURE: Dedrick Portillo PTA PATIENT NAME: Audra Archer DATE: October 23, 2024 TIME: 8:35 AM NURSING PROG Observed: 10/23/2024 7:20 AM Status: COMPLETED Source: [facility] HNO ID: [id number] Author: RICHIE LANG RN Service: Nursing Author Type: Registered Nurse Type: Nursing Progress Note Filed: 10/23/2024 08:30 Note Text: Report received from Dedrick Fraser RN; PROGRESS Observed: 10/23/2024 5:53 AM Status: COMPLETED Source: [facility] HNO ID: [id number] Author: NASH MANZANARES MD Service: Orthopaedic Surgery Author Type: Physician Type: Progress Notes Filed: 10/23/2024 12:55 Note Text: I evaluated the patient and personally participated in the richards components. I agree with the resident's findings and plan with the following revisions and/or additions: Doing well. Pain controlled. Discharge to rehab pending. Signature: Nash Manzanares MD Service Date: 10/23/2024 Service Time: 12:55 PM Orthopaedic Surgery Inpatient Progress Note Assessment Audra Archer is a 79 year old female who is POD #1 status-post L TKA. Plan -Pain control -Weight Bearing As Tolerated LLE -Dressing management - Mepilex X7 days, SuperACE X1day taken off -Reg diet -PT/OT [facility] skilled for [facility]F -DVT ppx: Aspirin 81mg BID -Post op Abx 2g AncefX2 doses -D/C planning: Rehab at [facility] -Follow up: With Dr. Manzanares in 10-14 days Subjective No acute events overnight. Pain controlled. No fevers, chills, chest pain, or shortness of breath. No new complaints. Physical Examination Vitals BP 110/60 Pulse 86 Temp 36 ?C (96.8 ?F) (Temporal) Resp 15 SpO2 97% General Alert and oriented. No acute distress. Cooperative with interview. Left Lower Extremity Dressing CDI SILT Galindo/Sa/DP/SP/T. Motor intact EHL/DF/PF. DP/PT pulses palpable; BCR all digits. Labs Recent Labs 10/23/24 0222 NA 134* K 4.8 CHLOR 101 CO2 27 BUN 11 CREAT 1.24* GLUC 143* ANION 6* CA 8.5 WBC 10.60 HB 11.8 HCT 36.5 PLT 152 Imaging WARD Peng MD October 23, 2024 5:53 AM INPATIENT ATTENDING: Dr. Manzanares, Nash Cole MD, Elective High-Risk Geriatric Patient Vulnerabilities: Impaired Functional Status and Impaired Mobility Diet: DIET CARBOHYDRATE CONTROLLED Recommendations: Cognition: No Cognitive Impairment Geriatric Consult (Age over 85 or impaired cognition):Consult not needed Palliative Care/Hospice: Consult not required Rehab/Therapy: PT/OT Recommendations: PT: Recommended Discharge Disposition: Subacute/SNF OT: Swallow: Swallow Screening Result - Step 2: PASSED Swallow Screen - Patient Able To Swallow 3 Ounce Cup of Water Without Exhibiting Signs Of Aspiration Speech Recommendations: Speech: Speech Diet: Nutrition: Consult not required Nutrition Recommendations: MST: Quality Consultant: Pharmacy: Consult not needed Social Work: NA Anticipated Discharge Disposition: CBC PNL BLD AUTO Collected: 10/23/2024 2:22 AM Statu s: F Source: [facility] Order Comment: Specimen Type : BLOOD SPECIMEN Ordering Facility: [facility] Address: [address] [place] [address] TYPE CODE TESTS RESULT OUT OF RANGE REFERENCE UNITS LAB 6690-2(LOINC) WBC # Bld Auto 10.60 3.70-11.00 k/uL LAB 789-8(LOINC) RBC # Bld Auto 4.13 3.90-5.20 m/ uL LAB 718-7(INC) Hgb Bld-mCnc 11.8 11.5-15.5 g/dL LAB 4544-3([facility]) Hct VFr Bld Auto 36.5 36.0-46.0 % LAB 787-2(INC) MCV RBC Auto 88.4 80.0-100.0 fL LAB 785-6([facility]) MCH RBC Qn Auto 28.6 26.0-34.0 pg LAB 786-4([facility]) MCHC RBC Auto-mCnc 32.3 30.5-36.0 g/dL LAB 09208-1([facility]) RDW RBC-Rto 13.3 11.5-15.0 % LAB 777-3([facility]) Platelet # Bld Auto 152 150-400 k/uL LAB 13065-6([facility]) PMV Bld Auto 10.6 9.0-12.7 fL LAB 771-6([facility]) nRBC # Bld Auto <0.01 <0.01 k/uL Performed By: #### [id number] # ### [facility] CLIA [id number] [address] OF [facility] BAS METAB 2000 PNL SERPL Collected: 07/2024 2:22 AM Status: F Source: [facility] Order Comment: Specimen Type : BLOOD SPECIMEN Ordering Facility: [facility] Address: [address] [place] [address] TYPE CODE TESTS RESULT OUT OF RANGE REFERENCE UNITS LAB 2345-7([facility]) Glucose SerPl-mCnc 143 High 74-99 mg/dL Result Comment: The [place] [employer] (ADA) provides guidance for cutoff values for fasting glucose and random glucose. The ADA defines fasting as no caloric intake for at least 8 hours. Fasting plasma glucose results between 100 to 125 mg/dL indicate increased risk for diabetes (prediabetes). Fasting plasma glucose results greater than or equal to 126 mg/dL meet the criteria for diagnosis of diabetes. In the absence of unequivocal hyperglycemia, results should be confirmed by repeat testing. In a patient with classic symptoms of hyperglycemia or hyperglycemic crisis, random plasma glucose results greater than or equal to 200 mg/dL meet the criteria for diagnosis of diabetes. Reference: Standards of Medical Care in Diabetes 2016, [place] [employer]. Diabetes Care. 2016.39(Suppl 1). LAB 3094-0(LOINC) BUN SerPl-mCnc 11 7-21 mg/ dL LAB 2160-0(LOINC) Creat SerPl-mCnc 1.24 High 0.58-0.96 mg/dL LAB 2951-2(LOINC) Sodium SerPl-sCnc 134 Low 136-144 mmol/L LAB 2823-3(LOINC) Potassium SerPl-sCnc 4.8 3.7-5.1 mmol/L LAB 2075-0(LOINC) Chloride SerPl-sCnc 101 98-107 mmol/L LAB 2028-9(LOINC) CO2 SerPl-sCnc 27 22-30 mmo l/L LAB 1863-0(LOINC) Anion Gap4 SerPl-sCnc 6 Low 8-15 mmol/L LAB 76472-5(LOINC) Calcium SerPl-mCnc 8.5 8.5-10.2 mg/dL LAB 48783-6(LOINC) Creatinine + eGFR Pnl SerPlBld 44 Low >=60 mL/min/1. 73m??? Result Comment: Estimated Gl omerular Filtration Rate (eGFR) is calculated using the 2020 CKD-EPI creatinine equation. This equation utilizes serum creatinine, sex, and age as parameters. The creatinine assay has traceable calibration to isotope dilution-mass spectrometry. Refer to KDIGO guidelines for clinical interpretation. In patients with unstable renal function, e.g. those with acute kidney injury, the eGFR may not accurately reflect actual GFR. Performed By: #### [id number] # ### [facility] CLIA [id number] [address] STATES OF [facility] CONSULT Observed: 10/22/2024 10:15 PM Status: COMPLETED Source: [facility] HNO ID: [id number] Author: MAKENZIE CARVER DO Service: Hospital Medicine Author Type: Physician Type: Consults Filed: 10/22/2024 22:30 Note Text: DEPARTMENT OF HOSPITAL MEDICINE INITIAL CONSULT SERVICE DATE: 10/22/2024 SERVICE TIME: 10:15 PM Primary Care Physician: Bryson Hernandez MD NIGHT AND WEEKEND COVERAGE: [place] COVERAGE: After 7pm, please call cross cover pager #[phone] REASON FOR CONSULT: post op med management-DM REQUESTING PHYSICIAN: Nash Manzanares MD Subjective CHIEF COMPLAINT: left knee pain HPI: This is a 79 year old female who presents with left knee pain and underwent a L TKR. We are consulted for medical management. She is groggy. States that her sugar had gone low at one point but doing better had cookies, pasta moises with chicken and broccoli. No n/v. No cp or palp. Is the Patient Experiencing Pain: No: 0 on a scale of 0 to 10 PAST MEDICAL HISTORY Diagnosis Date Angina pectoris Chronic kidney disease, stage 3b (HCC) Coronary arteriosclerosis Depression GERD (gastroesophageal reflux disease) HLD (hyperlipidemia) HTN (hypertension) Neuropathy bilateral feet Obesity PABLO (obstructive sleep apnea) Primary osteoarthritis of left knee Right hip pain Tobacco abuse 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 PAST SURGICAL HISTORY Procedure Laterality Date APPENDECTOMY 1955 L'SCOPE CHOLECYSTECTOMY LIGATE FALLOPIAN TUBE PAST SURGICAL HISTORY OF C5 and C6 fusion with titanium PAST SURGICAL HISTORY OF Right 02/06/2024 right [place] TOTAL ABDOM HYSTERECTOMY TX INTER/NY/SUBTRCHNTRIC FEMORAL FX SCREW IMPLT Right 11/07/2021 FAMILY HISTORY Problem Relation Age of Onset Diabetes Mother Heart Mother Lung Cancer Mother Social History Tobacco Use Smoking status: Former Current packs/day: 0.00 Average packs/day: 3.0 packs/day for 45.0 years (135.0 ttl pk-yrs) Types: Cigarettes Start date: 12/1961 Quit date: 12/2006 Years since quittin.8 Smokeless tobacco: Never Vaping Use Vaping status: Never Used Substance Use Topics Alcohol use: Not Currently Drug use: Never MEDICATIONS: Reviewed nystatin (MYCOSTATIN) powder, APPLY EXTERNALLY TWICE DAILY, Disp: , Rfl: , Taking magnesium chloride (SLOW-MAG ORAL), Take 1-2 tablets by mouth daily at bedtime., Disp: , Rfl: , 10/21/2024 insulin lispro (HUMALOG U-100 INSULIN) 100 unit/mL injection, Inject 5-10 Units subcutaneously three times a day before meals. Based in glucose level, Disp: , Rfl: , 10/21/2024 carvedilol (COREG) 6.25 mg tablet, Take 6.25 mg by mouth two times a day with meals., Disp: , Rfl: , 10/21/2024 citalopram hydrobromide (CELEXA) 10 mg tablet, Take 10 mg by mouth once daily., Disp: , Rfl: , 10/21/2024 isosorbide mononitrate ER (IMDUR) 30 mg 24 hr tablet, Take 30 mg by mouth once daily., Disp: , Rfl: , 10/21/2024 omeprazole (PRILOSEC) 40 mg capsule, Take 40 mg by mouth two times a day., Disp: , Rfl: , 10/21/2024 pregabalin (LYRICA) 150 mg capsule, Take 150 mg by mouth three times daily., Disp: , Rfl: , 10/21/2024 Menthol-Zinc Oxide (CALMOSEPTINE) 0.44-20.6 %, Apply to affected area two times a day as needed., Disp: 100 g, Rfl: 0 acetaminophen (TYLENOL) 325 mg tablet, Take 2 tablets by mouth every 6 hours as needed for pain., Disp: , Rfl: LOW-DOSE ASPIRIN ORAL, 81 mg once daily., Disp: , Rfl: , 10/19/2024 TOUJEO MAX U-300 SOLOSTAR 300 unit/mL (3 mL) inpn, Inject 60 Units subcutaneously daily at bedtime., Disp: , Rfl: , 10/20/2024 buprenorphine (BUTRANS) 20 mcg/hour transdermal patch, 1 Patch one time a week., Disp: , Rfl: , 10/20/2024 DEXCOM G7 SENSOR beth, Inject 1 application subcutaneously as directed., Disp: , Rfl: nitroglycerin sublingual (NITROQUICK) 0.4 mg SL tablet, Dissolve 0.4 mg under the tongue every 5 minutes as needed for chest pain., Disp: , Rfl: Current Facility-Administered Medications Medication Dose Route Frequency carvedilol 6.25 mg tab(s) (COREG) 6.25 mg ORAL BID w MEALS citalopram hydrobromide 10 mg tablet (CeleXA) 10 mg ORAL DAILY isosorbide mononitrate ER 30 mg tab(s) (IMDUR) 30 mg ORAL DAILY nitroglycerin sublingual 0.4 mg tab(s) (NITROQUICK) 0.4 mg SUBLINGUAL q [address] 40 mg tab(s) (PROTONIX) 40 mg ORAL BID pregabalin 150 mg cap(s) (LYRICA) 150 mg ORAL TID [START ON 10/27/2024] buprenorphine transdermal patch 20 mcg/hr (BUTRANS) 1 patch TRANSDERMAL 1/WK insulin lispro 5-10 Units injection (rapid acting) (ADMElog) 5-10 Units SUBCUTANEOUS TID before MEALS insulin glargine 48 Units injection (LANTUS SOLOSTAR, BASAGLAR KWIKPEN) 48 Units SUBCUTANEOUS AT BEDTIME ondansetron 4 mg tab(s) (ZOFRAN) 4 mg ORAL q 6 H PRN Or ondansetron (PF) 4 mg injection (ZOFRAN) 4 mg INTRAVENOUS q 6 H PRN [START ON 10/23/2024] magnesium hydroxide 400 mg/5 mL 30 mL (MOM) 30 mL ORAL DAILY PRN [START ON 10/24/2024] bisacodyl EC 10 mg tab(s) (DULCOLAX) 10 mg ORAL DAILY aluminum-magnesium hydroxide-simethicone 200-200-20 mg/5 mL 30 mL 30 mL ORAL q 2 H PRN [START ON 10/23/2024] ascorbic acid (vitamin C) 500 mg tab(s) (VITAMIN C) 500 mg ORAL BID w MEALS [START ON 10/23/2024] docusate sodium 100 mg cap(s) (COLACE) 100 mg ORAL BID senna 17.2 mg tab(s) (SENOKOT) 17.2 mg ORAL AT BEDTIME [START ON 10/23/2024] aspirin, enteric coated 81 mg tab(s) 81 mg ORAL BID NaCl 0.9% iv flush bag 20 mL INTRAVENOUS PRN NaCl 0.9% iv infusion 75 mL/hr INTRAVENOUS CONTINUOUS ceFAZolin iv piggyback 2 g in D5W (iso-osmotic) 100 mL (ANCEF) 2 g INTRAVENOUS q 8 HR acetaminophen 1,000 mg tab(s) (TYLENOL) 1,000 mg ORAL q 8 H oxyCODONE IR 5-10 mg tab(s) (ROXICODONE) 5-10 mg ORAL q 3 H PRN morphine 2 mg injection 2 mg INTRAVENOUS q 2 H PRN dextrose 15 gram/32 mL 15 g (TRUEPLUS) 15 g ORAL PRN Or glucagon 1 mg injection 1 mg INTRAMUSCULAR PRN Or dextrose 10% iv bolus 12.5 g INTRAVENOUS PRN magnesium lactate ER 84 mg tab(s) (MAGTAB) 84 mg ORAL AT BEDTIME . ALLERGIES Allergen Reactions Ciprofloxacin GI Upset, Other: See Comments Convulsions Metformin Hives, Vomiting Pzappax-Fgw-Oss Red* Hives Sulfa (Sulfonamide * Anaphylaxis, Other: See Comments, Unknown Baclofen Other: See Comments Could not function Codeine Mental Status Change hallucinations Neosporin [Benzalko* Rash [place] Unknown Tetanus And Diphthe* Other: See Comments Dizziness, syncope REVIEW OF SYSTEMS: BODY JOINER: no history of BODY JOINER disease RESP: no history of pulmonary disease CARD: history of HTN GI: no history of GI disease RENAL: no history of renal disease ENDO: history of diabetes without secondary complications HEME: no history of hematologic disease RHEUM: no history of rheumatologic disease PSYCHIATRIC: no history of psychiatric disease Objective PHYSICAL EXAM: BP 129/51 Pulse 89 Temp (Src) 98.4 (Temporal) Resp 20 SpO2 95% O2 Therapy: Nasal Cannula, Liters (Numeric Only): 2 Physical Exam Performed: GENERAL: Alert, no distress, cooperative, Obese HEAD/SINUSES: No significant findings EYES: PERRLA, EOMI OROPHARYNX: Lips, mucosa, and tongue normal. Teeth and gums normal. Oropharynx normal. NECK: Supple LUNGS: Lungs clear to auscultation, Good diaphragmatic excursion CARDIAC: Normal S1 and S2; no rubs, murmurs, or gallops ABDOMEN: Abdomen soft, non-tender, BS normal, No masses or organomegaly EXTREMITIES: Extremities normal, no deformities, edema, clubbing or skin discoloration. Good capillary refill. NEURO: Grossly normal cognition, motor function, and cranial nerves III-XII Lines, Drains, and Airways Line Duration Peripheral Right Forearm 22 Gauge -- days Reviewed lines and needs to be continued: REASONS: Difficulty in obtaining/maintaining access DATA: Diagnostic tests reviewed for today's visit: Most recent labs and imaging results. Impression/Recommendations S/P L TKR POD 0: per primary team. Butrans reordered per primary team along with lyrica 150 mg tid. IDDM type 2: toujeo (converted to lantus) ordered per primary team. Did eat post operatively without issue. Will cont to monitor. Add lispro ssi with meal checks. No hs ssi. HTN: cont with coreg 6/25 mg bid and imdur 30 mg daily. CAD: cont with asa 81 mg daily if ok with primary team, imdur and coreg. Morbid Obesity Class 3 VTE PROPHYLAXIS: As per primary team Disposition: To be determined Plan of care discussed with: Provider, RN, Patient SIGNATURE: Makenzie Carver DO PATIENT NAME: Audra Archer DATE: October 22, 2024 TIME: 10:15 PM PROGRESS Observed: 10/22/2024 9:25 PM Status: COMPLETED Source: [facility] HNO ID: [id number] Author: DONYA CRAWLEY RN Service: Nursing Author Type: Registered Nurse Type: Progress Notes Filed: 10/22/2024 21:27 Note Text: Report and care given to Dedrick Sinclair RN oncoming nurse. PROGRESS Observed: 10/22/2024 9:10 PM Status: COMPLETED Source: [facility] HNO ID: [id number] Author: DONYA CRAWLEY RN Service: Nursing Author Type: Registered Nurse Type: Progress Notes Filed: 10/22/2024 21:13 Note Text: Pt repositioned and IS teaching completed. IS at BS within pt's reach. Pt declines food at this time. Diet Sprite given and water provided to pt. Pt does not need to urinate at this time. Call light within reach. ANES POSTPROC EVAL Observed: 10/22/2024 5:27 PM Status: COMPLETED Source: [facility] HNO ID: [id number] Author: RANULFO SCHERER DO Service: Anesthesiology Author Type: Physician Type: Anesthesia Postprocedure Evaluation Filed: 10/22/2024 17:27 Note Text: POST ANESTHESIA EVALUATION NOTE : 1945 Procedure Summary Date: 10/22/24 Room / Location: [facility] OR OR Anesthesia Start: 1141 Anesthesia Stop: 1400 Procedure: ARTHROPLASTY REPLACE JOINT TOTAL KNEE (Left: Knee) Diagnosis: Primary osteoarthritis of left knee (Primary osteoarthritis of left knee [M17.12]) Surgeons: Nash Manzanares MD Responsible Provider: Ranulfo Scherer DO Anesthesia Type: general ASA Status: 3 Anesthesia Type: general Airway Type: ETT Last Vitals Vitals Value Taken Time BP 155/62 10/22/24 1700 Temp 36.3 ?C (97.3 ?F) 10/22/24 1536 HR SpO2 85 10/22/24 1726 Resp 20 10/22/24 1726 SpO2 97 % 10/22/24 1726 Vitals shown include unfiled device data. Post Anesthesia Patient Status Patient Evaluation: PACU. PACU/ICU Patient Condition: stable. Anticipated Disposition: inpatient floor planned admission. Neurological Status: sleepy but arousable. Pulmonary Status: breathing comfortably on supplemental oxygen Airway Control: returned to baseline unsupported. Cardiovascular Status: stable. Pain Management: clinically adequate Postoperative Hydration: acceptable. Intraoperative Events: no significant anesthesia events Post Operative Nausea/Vomiting Status: no significant post operative nausea or vomiting Recommendation: further care per PACU/ICU/floor team. Anesthesia Observations No Documentation SIGNATURE: Ranulfo Scherer DO PATIENT NAME: Audra Archer DATE: October 22, 2024 TIME: 5:27 PM CSN: [id number] PROGRESS Observed: 10/22/2024 4:40 PM Status: COMPLETED Source: [facility] HNO ID: [id number] Author: DONYA CRAWLEY, BILLY Service: Nursing Author Type: Registered Nurse Type: Progress Notes Filed: 10/22/2024 18:39 Note Text: Pt eating meal. THERAPY NT Observed: 10/22/2024 4:31 PM Status: COMPLETED Source: [facility] HNO ID: [id number] Author: RICARDA RIVAS, PT Service: Physical Therapy Author Type: Physical Therapist Type: Therapy (PT/OT/Speech/Resp) Filed: 10/22/2024 16:32 Note Text: Physical Therapy Evaluation Summary SERVICE DATE: 10/22/2024 SERVICE TIME: 1536 to 1559 [facility] Clicks Score: 14 DISCHARGE RECOMMENDATIONS Subacute/SNF Recommended Discharge Disposition Due to: Functional deficits requiring ongoing therapy service prior to discharge home., Functional status decline, Requires multiple therapy disciplines ASSESSMENT Response to Therapy Interventions: Good Participation in Activities, Pain PRECAUTIONS Bed/Chair Alarm, Fall Risk, Lines/Tubes/Drains, Total Knee Replacement, Weight Bearing Restrictions Left Lower Extremity Weight Bearing Status: WBAT CURRENT HOSPITAL COURSE presented for L TKA Relevant Past Medical History: R femur fx s/p fixation, CKD, DM, depression, PABLO, R [place], L knee OA HOME LIVING Patient Lives With: Family Assistance Available: Part-Time Entry To Home: Stairs, With Rail Number Of Stairs Into Home: 3 Number Of Stairs To Bed/Bath: 0 Tub/Shower Type: tub shower Laundry: family can complete Equipment Owned: Walker- Wheeled, Cane, Shower Chair, Grab Bars- Shower, Finish Mender PRIOR FUNCTIONAL LEVEL Required Assistance Assistance Required With: Shopping, Transportation ambulates with wh walker; family takes care of household tasks SUBJECTIVE c/o pain L knee with mobility THERAPY DIAGNOSIS Reduced mobility-other, Muscle Weakness (generalized), Unsteadiness on feet, Abnormalities of gait and mobility-other TREATMENT INTERVENTIONS Evaluation, Therapeutic Activity (16039) Timed Code Treatment (minutes): 8 Skilled Treatment Time (minutes): 23 $ Evaluation-Moderate (29859) Billed Units: 1 unit Therapeutic Activity (01178) Treatment Minutes: 8 $ Therapeutic Activity (04143) Billed Units: 1 unit Initiated left TKA protocol exercises--cues for proper alignment and technique--needed min/mod A to complete ROM exercises Cues for safe mobility per grid TRAINING AND EDUCATION PROVIDED Bed Mobility, Benefits of In-Hospital Mobility, Discharge Planning, Exercise Program, Falls Prevention, Home Safety, Role of Physical Therapy, Transfers THERAPEUTIC SKILLS USED Activity Dosing, Assessment of Tolerance Including Vitals Response to Activity, Cues for Sequencing/Proper Technique for Activity, Physical Assist, Movement Facilitation, Muscle Activation Facilitation, Facilitation of Joint Range of Motion FUNCTIONAL STATUS Bed Mobility Supine To Sit: Moderate Assistance, Additional Information needed assist to bring LLE to EOB and off bed Sit to Supine: Moderate Assistance, Additional Information needed assist to bring LLE back into bed; cues for safe mobility Transfers Sit To Stand: Minimal Assistance, Additional Information cues for hand placement and safety Stand To Sit: Minimal Assistance, Additional Information cues to reach back for bed and slowly sit down Bed to Chair Gait Minimal Assistance, Additional Information cues for gait sequencing and safety Gait Device: Wheeled Walker General Deviations/Observations: Antalgic gait, Elvia decreased, Flexed trunk posture, Step length decreased Gait Distance (feet): lateral steps along EOB; shuffled, increased time and effort to take each side step Gait Deviations Left Lower Extremity: Weight bearing decreased, Step length decreased, Stance time decreased Stairs Range of Motion: ROM Limitation Comments ROM Limitation Comments: approx 20 degrees L knee flexion Strength: Strength Limitation Comments Strength Limitation Comments: partial QS L knee GOALS Transfer Supine to/from Sit with: Contact Guard Assistance Transfer Sit to/from Stand with: Contact Guard Assistance Ambulate with: Contact Guard Assistance Distance: 20'x2 Device: Wheeled Walker Goal: x12 reps L TKA protocol exercises Rehab Potential: Good Good Rehab Potential Due To: Good overall health status ACUTE CARE TREATMENT PLAN PT Frequency: Twice Daily Treatment Interventions: Education, Joint Mobility, Strengthening, Functional Mobility Training, Balance Training SIGNATURE: Ricarda Rivas PT PATIENT NAME: Audra Archer DATE: October 22, 2024 TIME: 4:31 PM PROGRESS Observed: 10/22/2024 3:44 PM Status: COMPLETED Source: [facility] HNO ID: [id number] Author: DONYA CRAWLEY RN Service: Nursing Author Type: Registered Nurse Type: Progress Notes Filed: 10/22/2024 15:44 Note Text: PT at working with pt. PROGRESS Observed: 10/22/2024 2:54 PM Status: COMPLETED Source: [facility] HNO ID: [id number] Author: DONYA CRAWLEY RN Service: Nursing Author Type: Registered Nurse Type: Progress Notes Filed: 10/22/2024 14:54 Note Text: Pt placed onto bed loja PLAN OF CARE Observed: 10/22/2024 1:42 PM Status: COMPLETED Source: [facility] HNO ID: [id number] Author: GATITO PENG MD Service: Orthopaedic Surgery Author Type: Resident Type: Plan of Care Filed: 10/22/2024 13:43 Note Text: Post op plan: -Pain control -Weight Bearing As Tolerated LLE -Dressing management - Mepilex X7 days, SuperACE X1day -Reg diet -PT/OT anticipate AR -DVT ppx: Aspirin 81mg BID -Post op Abx 2g AncefX2 doses -D/C planning: Rehab at [facility] -Follow up: With Dr. Manzanares in 10-14 days Gatito Peng MD PGY-3 October 22, 2024 1:42 PM Pager: [phone] BRIEF OP NOT Observed: 10/22/2024 1:39 PM Status: COMPLETED Source: [facility] HNO ID: [id number] Author: NASH MANZANARES MD Service: Orthopaedic Surgery Author Type: Physician Type: Brief Op Note Filed: 10/22/2024 13:40 Note Text: TOTAL KNEE ARTHROPLASTY BRIEF OPERATIVE / PROCEDURE NOTE LOG ID: [id number] Surgery/Procedure Date: 10/22/2024 Incision/Procedure Start Time: 12:07 PM Incision Close/Procedure End Time: Surgeon(s)/Proceduralist(s) and Turkey Pinner(s): Surgeons and Role: * Nash Manzanares MD - Primary * Gatito Peng MD - Resident - Assisting Stonecutter Hand: Cooper Mercado SA Procedure(s): Procedure(s) (LRB): ARTHROPLASTY REPLACE JOINT TOTAL KNEE (Left) Anesthesia: General Peripheral Block Type: Saphenous/Adductor Approach: Median parapatellar Findings: OA with Valgus Estimated Blood Loss: 100 mls Specimens: bone cuts Complications: None Closure Technique: Primary Total Joint Arthroplasty (TJA) Surgical Risk Procedure: Not on file Date assessed: Not on file No data to display Implant: Implant Name Type Inv. Item Serial No. Women'S Swim Coach Lot No. LRB No. Used Action SCREW PERSONA 2.5MM FEMALE HEXAGON 25MM HEADFRAME KNEE - [id number] Screw SCREW PERSONA 2.5MM FEMALE HEXAGON 25MM HEADFRAME KNEE [employer] [id number] Left 1 Non-Implant Bearing Surface: Fixed Fixation: Cemented SSI Risk Factors: DM Constraint: Retaining Option for Deep [facility]/AP Constrained Other: None Pre-Op/Pre-Procedure Diagnosis: Primary osteoarthritis of left knee [M17.12] Post-Op/Post-Procedure Diagnosis: Primary osteoarthritis of left knee [M17.12] Weight Bearing Status: Full Weight Bearing SIGNATURE: Nash Manzanares MD PATIENT NAME: Audra Archer DATE: October 22, 2024 TIME: 1:39 PM TISS PATH BX REPORT Collected: 10/23/19 12:13 PM Status: F Source: [facility] Order Comment: Specimen Type : TISSUE SPECIMEN Ordering Facility: [facility] Address: [address] [place] [address] TYPE CODE TESTS RESULT OUT OF RANGE REFERENCE UNITS PATHOLOGY [id number] CASE REPORT Result Comment: Surgical Pat hology Report Case: [id number] Authorizing Provider: Nash Manzanares MD Collected: 10/22/2024 12:13 PM Ordering Location: [facility] Received: 10/22/2024 02:48 PM Pathologist: Blake Schneider MD Specimen: Knee, Left, Arthroplasty PATHOLOGY [id number] FINAL DIAGNOSIS Result Comment: A. Knee, lef t, arthroplasty: - Degenerative changes consistent with osteoarthritic disease. at 1216 EDT PATHOLOGY [id number] GROSS DESCRIPTION Result Comment: A. Knee, Lef t, Arthroplasty Received in formalin labeled left knee are multiple fragments of bone aggregating to 13 x 9 x 2.5 cm. A fragment is recognizable as a tibial plateau demonstrating areas of eburnation and roughening. Distal fragments are consistent with femoral condyles also demonstrating areas of eburnation and roughening. Soft tissue is attached. Hardware Test Engineer sections are submitted as follows: A1: Femoral condyle following decalcification A2: Tibial plateau following decalcification A3: Soft tissue Gross examination performed at [facility], [address] [place] [address] CLIA#[id number] OLS October 22, 2024 3:05 PM PATHOLOGY CDX2 CLINICAL HISTORY Result Comment: Pre-op diagn osis: Primary osteoarthritis of left knee [M17.12] PATHOLOGY [facility] FINAL PERFORMING LAB Result Comment: Diagnostic i nterpretation performed at: [facility], [address] [place] [address] CLIA# [id number] Science Analyst: Pablo Rowell MD PATHOLOGY [id number] AP DISCLAIMER Result Comment: Laboratory D eveloped Test (LDT) Disclaimer: Performance characteristics of immunohistochemical, immunofluorescent, and chromogenic in-situ hybridization tests have been determined by the performing laboratory within [facility]'s [facility]ology and Laboratory Medicine Department ([facility], [facility], [facility], [facility], [facility], [facility], or [facility]) in a manner consistent with CLIA requirements. One or more of these tests may not have been cleared or approved by the FDA. [facility] is regulated under CLIA as qualified to perform high-complexity testing. These tests are used for clinical purposes. These should not be regarded as investigational or for research. Positive and negative controls stain appropriately. Performed By: #### [id number] # ### [facility] CLIA [id number] [address] ANES PROCEDURE NOTE Observed: 10/22/2024 11:57 AM Status: COMPLETED Source: [facility] HNO ID: [id number] Author: BLAKE TRENT APRN.CRNA Service: Anesthesiology Author Type: Nurse Combat Systems Operator Mine Warfare Type: Anesthesia Procedure Notes Filed: 10/22/2024 11:58 Note Text: ANESTHESIOLOGY PROCEDURE NOTE Airway General Information Procedure Start Time/Medication Administration: 10/22/2024 11:50 AM Procedure End Time: 10/22/2024 11:50 AM Patient location during procedure: OR Timeout Performed Pre-procedure: timeout performed Consent Obtained: Yes Patient identity confirmed: arm band and patient Staffing DIRECTOR FUNDRAISING: Blake Trent APRN.DIRECTOR FUNDRAISING Performed by: MARY ELLEN Indications and Patient Condition Indications for airway management: anesthesia Preoxygenated: yes anesthesia circuit Patient position: sniffing Method: sleep Difficult Mask: No Final Airway Details Final airway type: endotracheal airway Final Endotracheal Airway: ETT Cuffed: yes Successful intubation technique: video laryngoscopy Devices used: Calles Endotracheal tube insertion site: oral Blade size: #4 ETT size (mm): 7.0 Measured from: lips Measurement (cm): 22 Placement verified by: chest auscultation and capnometry Cormack-Lehane Classification: grade I - full view of glottis Number of attempts at approach: 1 Airway not difficult SIGNATURE: Blake Trent APRN.DIRECTOR FUNDRAISING PATIENT NAME: Audra Archer DATE: October 22, 2024 TIME: 11:57 AM CSN: [id number] OPERATIVE NO Observed: 10/22/2024 11:42 AM Status: COMPLETED Source: [facility] HNO ID: [id number] Author: NASH MANZANARES MD Service: Orthopaedic Surgery Author Type: Physician Type: Operative Report Filed: 10/22/2024 13:46 Note Text: [address] [place], [place] [address] OPERATIVE/PROCEDURE REPORT LOG ID: [id number] SURGERY/PROCEDURE DATE: 10/22/2024 INCISION/PROCEDURE START TIME: 12:07 PM INCISION CLOSE/PROCEDURE END TIME: NAME: Audra Archer Attending: Nash Manzanares MD MR:[id number] OPERATIVE REPORT PREOPERATIVE DIAGNOSIS: Left knee advanced arthritis, wear and deformity, valgus knee POSTOPERATIVE DIAGNOSIS: SAME OPERATION: Left total knee arthroplasty using the [employer] Person[employer] component system, 8 femur CR, D tibial base plate, 13 mm articular MC tibial insert; 32 mm onset dome patella SURGEON AND ASSISTANTS: Surgeons and Role: * Nash Manzanares MD - Primary * Gatito Peng MD - Resident - Assisting Stonecutter Hand: Cooper Mercado SA ACCOUNT SUPPORT REP: Stonecutter Hand: Cooper Mercado SA ANESTHESIA: General with regional block ESTIMATED BLOOD LOSS: 100 cc's MEDICATIONS: Ancef 2 grams, TXA x 2, 50cc ropivacaine 2.46 mg/mL-Epinephrine 0.005 mg/mL-clonidine 0.0008 mg/mL-ketorolac 0.3 mg/mL injection (R.E.C.K.) Implant: Implant Name Type Inv. Item Serial No. Women'S Swim Coach Lot No. LRB No. Used Action SCREW PERSONA 2.5MM FEMALE HEXAGON 25MM HEADFRAME KNEE - [id number] Screw SCREW PERSONA 2.5MM FEMALE HEXAGON 25MM HEADFRAME KNEE [employer] [id number] Left 1 Non-Implant BASEPLATE PERSONA 5D D TIVANIUM TIBIAL CEMENTED STEM KNEE LEFT - [id number] Joint BASEPLATE PERSONA 5D D TIVANIUM TIBIAL CEMENTED STEM KNEE LEFT [employer] [id number] Left 1 Implanted COMPONENT PERSONA 8 NARROW COCR FEMORAL CRUCIATE RETAIN CEMENTED - [id number] Joint - Knee COMPONENT PERSONA 8 NARROW COCR FEMORAL CRUCIATE RETAIN CEMENTED [employer] [id number] Left 1 Implanted COMPONENT 32MM ALL POLY PATELLAR PSN - [id number] Joint - Knee COMPONENT 32MM ALL POLY PATELLAR PSN [employer] [id number] Left 1 Implanted INSERT PERSONA 8-9 CD VIVACIT-E 13MM ARTICULAR CRUCIATE RETAIN STERILE - [id number] Joint - Knee INSERT PERSONA 8-9 CD VIVACIT-E 13MM ARTICULAR CRUCIATE RETAIN STERILE [employer] [id number] Left 1 Implanted CEMENT SIMPLEX GENTAMICIN BONE HIGH VISCOSITY 20ML STERILE 40GM - [id number] Cement / Putty CEMENT SIMPLEX GENTAMICIN BONE HIGH VISCOSITY 20ML STERILE 40GM [facility] [id number] Left 1 Implanted DESCRIPTION OF PROCEDURE: The patient was brought in the operating theater, placed in a supine position, given general anesthetic without complications. All bony prominences were well padded. The left lower extremity was well padded upper thigh tourniquet put in place. The patient's left lower extremity was prepped and draped in the usual sterile fashion. A standard anterior incision was made. Medial flap was raised to allow a medial arthrotomy.The arthrotomy was made and the patella was everted. The contractures medial were elevated and medial exposure obtained. This was done with a Bovie cautery and cob elevator. The collateral ligaments and neurovascular structures were protected and preserved. A portion of the fat pad was excised for exposure. Synovitis was resected proximally for exposure. The patella was addressed at the beginning of the case. The patella was worn and required resurfacing. The patella was measured in thickness, osteophytes were removed. Its thickness was measured with a caliper and the appropriate amount of bone was resected using a saw. The patella was sized to 32 mm and this was the size cemented into place at the end of the procedure using standard cement technique after trial to assure normal patellar tracking. The onset patellar guide us clamped to the patella and peg holes drilled. The thickness of the patella restored the patellar height. The knee was flexed to 90. An intramedullary alignment jacquelin was put in place. The distal cut was performed after securing the distal cutting block. The distal resection setting was placed at 0 The knee was cut in 7 degrees of valgus . The rotational block and sizing block was then put in place to measure the size of the femur and evaluate rotation. The posterior reference system was used. The femoral cuts were made with 4 degrees of external rotation on the femur side. The femur was measured to a size 8 . Anterior, posterior and chamfer cuts were then performed. Osteophytes were removed. Posterior soft tissue tightness was elevated. Posterior cruciate ligament was resected The tibia was addressed with an extramedullary guide system. The tibia was exposed using a PCL retractor and medial and lateral Shyann retractor. [place], angulation and rotation were all checked.The cutting depth was just below the area of the deficiency lateral. Remnants of the menisci were removed. The tibia was sized to a D baseplate. The rotation was checked after trialing the components, the base plate was secured, and then the final punch was made. The 13 mm MC articular insert provided ligamentous tension and extension and flexion with good range of motion, full extension, normal flexion, and no instability. The knee was trialed prior to cementation. Excellent fit and stability. Hemostasis was obtained. Knee thoroughly irrigated and checked for retained debris or material prior to closure. Instrument, sponge, needle and other counts were verified prior to closure. The components were cemented in place using standard bone cement technique with Simplex with Gentamicin HV. Excess bone cement was removed. The knee was then closed in a sequential fashion using deep nonabsorbable sutures followed by subcutaneous absorbable sutures and the skin was closed using Monocryl. Sterile dressings were applied. The patient's anesthesia was reversed without complications and was returned to the recovery room in satisfactory condition, tolerating this procedure well. Nash Manzanares MD October 22, 2024 ANES PROCEDURE NOTE Observed: 10/22/2024 11:00 AM Status: COMPLETED [id number] Author: BOBBI HARTMANN MD Service: Anesthesiology Author Type: Anesthesiologist Type: Anesthesia Procedure Notes Filed: 10/22/2024 11:02 Note Text: ANESTHESIOLOGY PROCEDURE NOTE Peripheral Nerve Block General Information Procedure Start Time/Medication Administration: 10/22/2024 10:50 AM Procedure End time: 10/22/2024 11:00 AM Patient location during procedure: pre-op Timeout Performed Pre-procedure: timeout performed Patient identity confirmed: arm band and patient Reason for block: post-op pain management/at surgeon's request Staffing Anesthesiologist: Bobbi Hartmann MD Performed by: anesthesiologist Preparation Sterility Preparation: hand hygiene performed prior to procedure, mask used Site Prep: Chloraprep Procedure Details Patient Position: supine Monitoring: Pulse OX, EKG and NIBP Block Type Lower Extremity: distal femoral (adductor canal) Laterality: left Injection Technique: single-shot Ultrasound Guided: Yes Image in Chart: No Local Infiltration: Yes Needle Needle Type: echogenic Needle Gauge: 21 G Needle Length: 83 mm Needle Localization: anatomical landmarks and ultrasound Assessment Injection assessment: negative aspiration, no paresthesia on injection, incremental injection and local visualized surrounding nerve on ultrasound Post-Procedure Neuro Exam Expected Regional Anesthesia: Yes Medications Administered ropivacaine (PF) 2 mg/mL (0.2 %) injection (NAROPIN) - peripheral nerve block 20 mL - 10/22/2024 10:50:00 AM SIGNATURE: Bobbi Hartmann MD PATIENT NAME: Audra Archer DATE: October 22, 2024 TIME: 11:00 AM CSN: [id number] ANES PRE-OP Observed: 10/22/2024 10:02 AM Status: COMPLETED Source: [facility] HNO ID: [id number] Author: BOBBI HARTMANN MD Service: Anesthesiology Author Type: Anesthesiologist Type: Anesthesia Preprocedure Evaluation Filed: 10/22/2024 11:03 Note Text: ANESTHESIOLOGY DAY OF SURGERY NOTE Left TKA Buprenorphine patch on right shoulder C5 fusion HTN - carvedilol, imdur HLD - asa DM - insulin PABLO CKD3 GERD - PPI Murmur on exam. Bedside TTE grossly normal. LV and RV squeezing, no wide open valves, no large effusion No echo Calles 3, grade 1 : 1945 Procedure Information Date/Time: 10/22/24 1115 Procedure: ARTHROPLASTY REPLACE JOINT TOTAL KNEE (Left: Knee) Location: [facility] OR / [facility] Surgeons: Nash Manzanares MD Estimated body mass index is 36.39 kg/m? as calculated from the following: Height as of 10/19/24: 162.6 cm (5' 4). Weight as of 10/19/24: 96.2 kg (212 lb). Most recent hematocrit and potassium results: Hematocrit 41.0 10/19/2024 Potassium 4.6 10/19/2024 Relevant Problems ANESTHESIA (+) PABLO (obstructive sleep apnea) CARDIO (+) Arteriosclerosis of coronary artery (+) Hypertension GI (+) Gastroesophageal reflux disease -RENAL (+) Stage 3 chronic kidney disease (HCC) (+) Stage 3b chronic kidney disease (HCC) PULMONARY (+) PABLO (obstructive sleep apnea) Other (+) Primary osteoarthritis of left knee I - PHYSICAL EVALUATION AIRWAY Patient intubated: No. Tracheostomy tube not present Mallampati: III. TM distance: >3 FB. Neck ROM: limited flexion and extension. Mouth opening: adequate. Short neck: yes. Thick neck: yes DENTAL Dental findings: edentulous. Additional exam findings: yes. CARDIOVASCULAR Murmur: murmur present. Peripheral edema: peripheral edema present. II - ANESTHESIA PLAN ASA Score: 3 Anesthetic Plan: general Airway type: ETT NPO Status: adequate Beta Ariel Monitoring Plan Monitoring plan: standard ASA. Post Procedure Analgesic Plan Postoperative analgesic plan: multimodal analgesia and peripheral nerve block. Informed Consent Anesthetic risks, benefits, alternatives, personnel and consent discussed: yes. Patient / Responsible [employer] Party agrees to proceed: yes Patient / Surrogate agrees to blood products: Yes Potential Anesthesia issues that may suggest increased risk of complications or contraindication to planned procedure: none. Vitals Value Taken Time BP 161/67 10/22/24 0920 Pulse 70 10/22/24 0920 Resp 18 10/22/24 0920 Temp 36.3 ?C (97.3 ?F) 10/22/24 0920 SpO2 95 % 10/22/24 0920 Facility-Administered Medications as of 10/22/2024 Medication Dose Route Frequency lidocaine (PF) 10 mg/mL (1 %) 1-2 mg injection (XYLOCAINE) 0.1-0.2 mL INTRADERMAL PRN lactated ringers iv infusion 5-30 mL/hr INTRAVENOUS CONTINUOUS NaCl 0.9% iv flush bag 20 mL INTRAVENOUS PRN ceFAZolin iv piggyback 2 g in D5W (iso-osmotic) 100 mL (ANCEF) 2 g INTRAVENOUS Pre-Op Once tranexamic acid (CYKLOKAPRON) in NaCl 0.7% 1,000 mg 100 mL 1,000 mg INTRAVENOUS Pre-Op Once Outpatient Medications as of 10/22/2024 Medication Sig nystatin (MYCOSTATIN) powder APPLY EXTERNALLY TWICE DAILY magnesium chloride (SLOW-MAG ORAL) Take 1-2 tablets by mouth daily at bedtime. insulin lispro (HUMALOG U-100 INSULIN) 100 unit/mL injection Inject 5-10 Units subcutaneously three times a day before meals. Based in glucose level carvedilol (COREG) 6.25 mg tablet Take 6.25 mg by mouth two times a day with meals. citalopram hydrobromide (CELEXA) 10 mg tablet Take 10 mg by mouth once daily. isosorbide mononitrate ER (IMDUR) 30 mg 24 hr tablet Take 30 mg by mouth once daily. omeprazole (PRILOSEC) 40 mg capsule Take 40 mg by mouth two times a day. pregabalin (LYRICA) 150 mg capsule Take 150 mg by mouth three times daily. Menthol-Zinc Oxide (CALMOSEPTINE) 0.44-20.6 % Apply to affected area two times a day as needed. acetaminophen (TYLENOL) 325 mg tablet Take 2 tablets by mouth every 6 hours as needed for pain. LOW-DOSE ASPIRIN ORAL 81 mg once daily. TOUJEO MAX U-300 SOLOSTAR 300 unit/mL (3 mL) inpn Inject 60 Units subcutaneously daily at bedtime. buprenorphine (BUTRANS) 20 mcg/hour transdermal patch 1 Patch one time a week. DEXCOM G7 SENSOR beth Inject 1 application subcutaneously as directed. nitroglycerin sublingual (NITROQUICK) 0.4 mg SL tablet Dissolve 0.4 mg under the tongue every 5 minutes as needed for chest pain. I have interviewed and examined the patient. I have reviewed the medical record and/or the pre-anesthesia evaluation, pertinent labs, and test results. This contains updated information obtained within 48 hours of Surgery/Procedure. SIGNATURE: Bobbi Hartmann MD PATIENT NAME: Audra Archer DATE: October 22, 2024 TIME: 10:02 AM CSN: [id number] NURSING PROG Observed: 10/22/2024 10:00 AM Status: COMPLETED Source: [facility] HNO ID: [id number] Author: KEYONNA LUA RN Service: Nursing Author Type: Registered Nurse Type: Nursing Progress Note Filed: 10/22/2024 10:00 Note Text: Pt has 20mcg/hr butrans patch on R shoulder. Pt states she changes her patches on Saturdays. PLAN OF CARE Observed: 10/22/2024 9:38 AM Status: COMPLETED Source: [facility] HNO ID: [id number] Author: LACY LEGER RPh Service: Pharmacy Author Type: Pharmacist Type: Plan of Care Filed: 10/22/2024 09:45 Note Text: Patient is scheduled for elective L TKA today, October 22. Contacted by PAT on Tuesday, October 19 to make aware pt was on Butrans patch. It is documented in PAT that pt changes patch every Tuesday. Called presurg to inquire if pt wearing Butrans patch and what day pt changes. RN confirmed pt wearing Butrans 20mcg patch on R shoulder and pt reported to RN that changes patch every Tuesday. Recommend continuing Butrans 20mcg patch and consulting pain management for post-op pain control. Lacy Leger RPh October 22, 2024 9:44 AM CNOV Observed: 10/19/2024 10:45 AM Status: COMPLETED Source: [facility] Office Visit (AGHWW1) AUDRA ARCHER ([id number]) 1945 F Date Time Provider Department 10/19/24 10:45 AM NASH MANZANARES [id number] During your visit today, we recorded the following information about you: Temperature Weight Height 98.3 degrees 96.2 kg 1.626 m Hira Naik Tech 10/20/2024 11:50 AM Signed REVIEW OF SYSTEMS: GENERAL: Well developed, well nourished. No acute distress PAIN: Negative for pain, history of chronic pain or current treatment for chronic pain conditions CARDIOVASCULAR: Negative for chest pain, leg swelling and palpations. MSK: Negative for joint swelling SKIN: Negative for lesions, rash, itching, metal sensitivity NEURO: Numbness/tingling of extremties ENDOCRINE: Positive for diabetic associated symptoms HEMATOLOGY: Negative for excessive bleeding, clots, bleeding disorders. Nash Manzanares MD 10/20/2024 11:50 AM Signed ORTHOPAEDIC OFFICE NOTE HISTORY OF PRESENT ILLNESS: Audra Archer is a 79 year old female who presents for with her daughter today for follow-up of her severe end-stage left knee arthritis. Longstanding history of arthritis with progressive deformity of her left leg. She has become progressively knock kneed. Her hip has done well and she is now ambulatory but limited by her left knee. Constant pain. Occasional painful giving way. Through the years she has had physical therapy and injection therapy with minimal improvement. Here today to discuss definitive knee replacement surgery at this time given how well her hip is done. Reviewed nursing note and current pain scale. PAST MEDICAL HISTORY Diagnosis Date Angina pectoris Chronic kidney disease, stage 3b (HCC) Coronary arteriosclerosis Depression GERD (gastroesophageal reflux disease) HLD (hyperlipidemia) HTN (hypertension) Neuropathy bilateral feet Obesity PABLO (obstructive sleep apnea) Primary osteoarthritis of left knee Right hip pain Tobacco abuse 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 PAST SURGICAL HISTORY Procedure Laterality Date APPENDECTOMY 1955 L'SCOPE CHOLECYSTECTOMY LIGATE FALLOPIAN TUBE PAST SURGICAL HISTORY OF C5 and C6 fusion with titanium PAST SURGICAL HISTORY OF Right 02/06/2024 right [place] TOTAL ABDOM HYSTERECTOMY TX INTER/NY/SUBTRCHNTRIC FEMORAL FX SCREW IMPLT Right 11/07/2021 FAMILY HISTORY Problem Relation Age of Onset Diabetes Mother Heart Mother Lung Cancer Mother Social History Tobacco Use Smoking status: Former Current packs/day: 0.00 Average packs/day: 3.0 packs/day for 45.0 years (135.0 ttl pk-yrs) Types: Cigarettes Start date: 12/1961 Quit date: 12/2006 Years since quittin.8 Smokeless tobacco: Never Vaping Use Vaping status: Never Used Substance Use Topics Alcohol use: Not Currently Drug use: Never MEDICATIONS: Current Outpatient Medications Medication Sig mupirocin (BACTROBAN) 2 % ointment Apply twice daily to each nostril for five days pre-operatively. Start on 10/19/2024. nystatin (MYCOSTATIN) powder APPLY EXTERNALLY TWICE DAILY Menthol-Zinc Oxide (CALMOSEPTINE) 0.44-20.6 % Apply to affected area two times a day as needed. acetaminophen (TYLENOL) 325 mg tablet Take 2 tablets by mouth every 6 hours as needed for pain. magnesium chloride (SLOW-MAG ORAL) Take 1-2 tablets by mouth daily at bedtime. LOW-DOSE ASPIRIN ORAL 81 mg once daily. insulin lispro (HUMALOG U-100 INSULIN) 100 unit/mL injection Inject 5-10 Units subcutaneously three times a day before meals. Based in glucose level TOUJEO MAX U-300 SOLOSTAR 300 unit/mL (3 mL) inpn Inject 60 Units subcutaneously daily at bedtime. buprenorphine (BUTRANS) 20 mcg/hour transdermal patch 1 Patch one time a week. DEXCOM G7 SENSOR beth Inject 1 application subcutaneously as directed. carvedilol (COREG) 6.25 mg tablet Take 6.25 mg by mouth two times a day with meals. citalopram hydrobromide (CELEXA) 10 mg tablet Take 10 mg by mouth once daily. isosorbide mononitrate ER (IMDUR) 30 mg 24 hr tablet Take 30 mg by mouth once daily. nitroglycerin sublingual (NITROQUICK) 0.4 mg SL tablet Dissolve 0.4 mg under the tongue every 5 minutes as needed for chest pain. omeprazole (PRILOSEC) 40 mg capsule Take 40 mg by mouth two times a day. pregabalin (LYRICA) 150 mg capsule Take 150 mg by mouth three times daily. No current facility-administered medications for this visit. ALLERGIES: ALLERGIES Allergen Reactions Ciprofloxacin GI Upset, Other: See Comments Convulsions Metformin Hives, Vomiting [id number] Red* Hives Sulfa (Sulfonamide * Anaphylaxis, Other: See Comments, Unknown Baclofen Other: See Comments Could not function Codeine Mental Status Change hallucinations Neosporin [Benzalko* Rash [place] Unknown Tetanus And Diphthe* Other: See Comments Dizziness, syncope PHYSICAL EXAMINATION: There were no vitals taken for this visit. General Appearance: Well appearing, alert, in no acute distress, well-hydrated, well nourished. Skin: Skin color, texture, turgor normal, no suspicious rashes or lesions. Extremities: Rises from the chair with difficulty. Unable to ambulate without an aid. 15 degrees of valgus on the left. Antalgic gait. Trace effusion. Significant crepitance with motion. 0 220 degrees range of motion. Her valgus deformity does correct to neutral with varus stress. IMAGES: Prior radiographs were reviewed demonstrating severe arthritis in the left knee with complete loss of lateral joint space, subchondral sclerosis, osteophyte formation and severe valgus deformity. ASSESSMENT AND PLAN: 1. Primary osteoarthritis of left knee - ICD9: 715.16, ICD10: M17.12 (primary diagnosis) 2. Acquired valgus deformity knee, left - ICD9: 736.41, ICD10: M21.062 Functional Plan: I discussed with her and her daughter definitive treatment being knee replacement surgery. Reviewed with them in detail the risk, benefits expected postoperative recovery. She verbalized good understanding. All questions were answered to her apparent satisfaction and written consent was obtained. We have made the decision to move forward with a major orthopaedic surgery today, and this represents the highest form of medical decision-making complexity. The patient's diagnosis of Primary osteoarthritis of left knee (primary encounter diagnosis) Acquired valgus deformity knee, left represents a chronic pathology/diagnosis/injury that represents a current or possible direct threat to bodily function. Will continue to monitor patient for Primary osteoarthritis of left knee (primary encounter diagnosis) Acquired valgus deformity knee, left, patient to schedule visit as per follow up discussed. She plans on returning to rehab facility in [place] postoperatively as this worked out very well for her with her hip replacement. I will leave an open for them to call the office if any other issues arise preoperatively. Nash Manzanares MD Allergies As of Date: 10/19/2024 Noted Allergy Reaction CIPROFLOXACIN 11/06/2021 8 - GI Upset 14 - Other: See Comments Comments: Convulsions METFORMIN 11/16/2021 4 - Hives 11 - Vomiting [id number] REDUCTASE INHIBIT*11/05/2021 4 - Hives SULFA (SULFONAMIDE ANTIBIOTICS) 11/05/2021 10 - Anaphylaxis 14 - Other: See Comments 16 - Unknown BACLOFEN 10/18/2024 14 - Other: See Comments Comments: Could not function CODEINE 11/05/2021 1 - Mental Status Change Comments: hallucinations NEOSPORIN (BENZALKONIUM CHLORIDE) 11/06/2021 2 - Rash KAMERON 10/11/2024 16 - Unknown TETANUS AND DIPHTHER. TOX (PF) 01/13/2024 14 - Other: See Comments Comments: Dizziness, syncope Date Reviewed: 10/19/2024 Reviewed by: Hira Naik Tech - Fully Assessed Reason for Visit: Follow Up [171] Pre-Op Visit [1235] Knee Pain [132] Primary Visit Diagnosis:Primary osteoarthritis of left knee [M17.12] Other Visit Diagnosis:Acquired valgus deformity knee, left [M21.062] Prescriptions as of 10/20/2024 - mupirocin (BACTROBAN) 2 % ointment Apply twice daily to each nostril for five days pre-operatively. Start on 10/19/2024. - nystatin (MYCOSTATIN) powder APPLY EXTERNALLY TWICE DAILY - Menthol-Zinc Oxide (CALMOSEPTINE) 0.44-20.6 % Apply to affected area two times a day as needed. - acetaminophen (TYLENOL) 325 mg tablet Take 2 tablets by mouth every 6 hours as needed for pain. - magnesium chloride (SLOW-MAG ORAL) Take 1-2 tablets by mouth daily at bedtime. - LOW-DOSE ASPIRIN ORAL 81 mg once daily. - insulin lispro (HUMALOG U-100 INSULIN) 100 unit/mL injection Inject 5-10 Units subcutaneously three times a day before meals. Based in glucose level - TOUJEO MAX U-300 SOLOSTAR 300 unit/mL (3 mL) inpn Inject 60 Units subcutaneously daily at bedtime. - buprenorphine (BUTRANS) 20 mcg/hour transdermal patch 1 Patch one time a week. - DEXCOM G7 SENSOR beth Inject 1 application subcutaneously as directed. - carvedilol (COREG) 6.25 mg tablet Take 6.25 mg by mouth two times a day with meals. - citalopram hydrobromide (CELEXA) 10 mg tablet Take 10 mg by mouth once daily. - isosorbide mononitrate ER (IMDUR) 30 mg 24 hr tablet Take 30 mg by mouth once daily. - nitroglycerin sublingual (NITROQUICK) 0.4 mg SL tablet Dissolve 0.4 mg under the tongue every 5 minutes as needed for chest pain. - omeprazole (PRILOSEC) 40 mg capsule Take 40 mg by mouth two times a day. - pregabalin (LYRICA) 150 mg capsule Take 150 mg by mouth three times daily. Problem List As Of Date 10/19/2024 Noted Resolved Intertrochanteric fracture of right femur, clos*11/05/2021 Obesity, Class II, BMI 35-39.9 [E66.812] 11/06/2021 Anemia, unspecified [D64.9] 12/13/2022 Stage 3b chronic kidney disease (HCC) [N18.32] 12/30/2023 Hypertension [I10] 12/30/2023 Hyperlipidemia [E78.5] 06/07/2023 Gastroesophageal reflux disease [K21.9] 12/30/2023 Diabetes mellitus (HCC) [E11.9] 12/30/2023 Depressive disorder [F32.A] 12/30/2023 Pain in right hip [M25.551] 12/22/2022 Stage 3 chronic kidney disease (HCC) [N18.30] 11/08/2022 Arteriosclerosis of coronary artery [I25.10] 12/30/2023 Class 1 obesity due to excess calories with bod*12/30/2023 PABLO (obstructive sleep apnea) [G47.33] 12/30/2023 Tobacco abuse [Z72.0] 12/30/2023 Status post total hip replacement, right [Z96.6*01/19/2024 Primary osteoarthritis of left knee [M17.12] 10/18/2024 Preop examination [Z01.818] 10/18/2024 Disposition: Return in about 3 weeks (around 11/09/2024). Follow-up and Disposition History for Encounter Date Provider Department Center 10/19/2024 [id number] MANZANARES*[facility] Letter Text Encounter Status:Closed by NASH MANZANARES on 10/20/24 PROGRESS Observed: 10/19/2024 10:44 AM Status: COMPLETED Source: [facility] HNO ID: [id number] Author: NASH MANZANARES MD Service: ? Author Type: Physician Type: Progress Notes Filed: 10/20/2024 11:50 Note Text: ORTHOPAEDIC OFFICE NOTE HISTORY OF PRESENT ILLNESS: Audra Archer is a 79 year old female who presents for with her daughter today for follow-up of her severe end-stage left knee arthritis. Longstanding history of arthritis with progressive deformity of her left leg. She has become progressively knock kneed. Her hip has done well and she is now ambulatory but limited by her left knee. Constant pain. Occasional painful giving way. Through the years she has had physical therapy and injection therapy with minimal improvement. Here today to discuss definitive knee replacement surgery at this time given how well her hip is done. Reviewed nursing note and current pain scale. PAST MEDICAL HISTORY Diagnosis Date Angina pectoris Chronic kidney disease, stage 3b (HCC) Coronary arteriosclerosis Depression GERD (gastroesophageal reflux disease) HLD (hyperlipidemia) HTN (hypertension) Neuropathy bilateral feet Obesity PABLO (obstructive sleep apnea) Primary osteoarthritis of left knee Right hip pain Tobacco abuse 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 PAST SURGICAL HISTORY Procedure Laterality Date APPENDECTOMY 1955 L'SCOPE CHOLECYSTECTOMY LIGATE FALLOPIAN TUBE PAST SURGICAL HISTORY OF C5 and C6 fusion with titanium PAST SURGICAL HISTORY OF Right 02/06/2024 right [place] TOTAL ABDOM HYSTERECTOMY TX INTER/NY/SUBTRCHNTRIC FEMORAL FX SCREW IMPLT Right 11/07/2021 FAMILY HISTORY Problem Relation Age of Onset Diabetes Mother Heart Mother Lung Cancer Mother Social History Tobacco Use Smoking status: Former Current packs/day: 0.00 Average packs/day: 3.0 packs/day for 45.0 years (135.0 ttl pk-yrs) Types: Cigarettes Start date: 12/1961 Quit date: 12/2006 Years since quittin.8 Smokeless tobacco: Never Vaping Use Vaping status: Never Used Substance Use Topics Alcohol use: Not Currently Drug use: Never MEDICATIONS: Current Outpatient Medications Medication Sig mupirocin (BACTROBAN) 2 % ointment Apply twice daily to each nostril for five days pre-operatively. Start on 10/19/2024. nystatin (MYCOSTATIN) powder APPLY EXTERNALLY TWICE DAILY Menthol-Zinc Oxide (CALMOSEPTINE) 0.44-20.6 % Apply to affected area two times a day as needed. acetaminophen (TYLENOL) 325 mg tablet Take 2 tablets by mouth every 6 hours as needed for pain. magnesium chloride (SLOW-MAG ORAL) Take 1-2 tablets by mouth daily at bedtime. LOW-DOSE ASPIRIN ORAL 81 mg once daily. insulin lispro (HUMALOG U-100 INSULIN) 100 unit/mL injection Inject 5-10 Units subcutaneously three times a day before meals. Based in glucose level TOUJEO MAX U-300 SOLOSTAR 300 unit/mL (3 mL) inpn Inject 60 Units subcutaneously daily at bedtime. buprenorphine (BUTRANS) 20 mcg/hour transdermal patch 1 Patch one time a week. DEXCOM G7 SENSOR beth Inject 1 application subcutaneously as directed. carvedilol (COREG) 6.25 mg tablet Take 6.25 mg by mouth two times a day with meals. citalopram hydrobromide (CELEXA) 10 mg tablet Take 10 mg by mouth once daily. isosorbide mononitrate ER (IMDUR) 30 mg 24 hr tablet Take 30 mg by mouth once daily. nitroglycerin sublingual (NITROQUICK) 0.4 mg SL tablet Dissolve 0.4 mg under the tongue every 5 minutes as needed for chest pain. omeprazole (PRILOSEC) 40 mg capsule Take 40 mg by mouth two times a day. pregabalin (LYRICA) 150 mg capsule Take 150 mg by mouth three times daily. No current facility-administered medications for this visit. ALLERGIES: ALLERGIES Allergen Reactions Ciprofloxacin GI Upset, Other: See Comments Convulsions Metformin Hives, Vomiting Kqdaqgb-Dss-Jhg Red* Hives Sulfa (Sulfonamide * Anaphylaxis, Other: See Comments, Unknown Baclofen Other: See Comments Could not function Codeine Mental Status Change hallucinations Neosporin [Benzalko* Rash Kameron Unknown Tetanus And Diphthe* Other: See Comments Dizziness, syncope PHYSICAL EXAMINATION: There were no vitals taken for this visit. General Appearance: Well appearing, alert, in no acute distress, well-hydrated, well nourished. Skin: Skin color, texture, turgor normal, no suspicious rashes or lesions. Extremities: Rises from the chair with difficulty. Unable to ambulate without an aid. 15 degrees of valgus on the left. Antalgic gait. Trace effusion. Significant crepitance with motion. 0 220 degrees range of motion. Her valgus deformity does correct to neutral with varus stress. IMAGES: Prior radiographs were reviewed demonstrating severe arthritis in the left knee with complete loss of lateral joint space, subchondral sclerosis, osteophyte formation and severe valgus deformity. ASSESSMENT AND PLAN: 1. Primary osteoarthritis of left knee - ICD9: 715.16, ICD10: M17.12 (primary diagnosis) 2. Acquired valgus deformity knee, left - ICD9: 736.41, ICD10: M21.062 Functional Plan: I discussed with her and her daughter definitive treatment being knee replacement surgery. Reviewed with them in detail the risk, benefits expected postoperative recovery. She verbalized good understanding. All questions were answered to her apparent satisfaction and written consent was obtained. We have made the decision to move forward with a major orthopaedic surgery today, and this represents the highest form of medical decision-making complexity. The patient's diagnosis of Primary osteoarthritis of left knee (primary encounter diagnosis) Acquired valgus deformity knee, left represents a chronic pathology/diagnosis/injury that represents a current or possible direct threat to bodily function. Will continue to monitor patient for Primary osteoarthritis of left knee (primary encounter diagnosis) Acquired valgus deformity knee, left, patient to schedule visit as per follow up discussed. She plans on returning to rehab facility in [place] postoperatively as this worked out very well for her with her hip replacement. I will leave an open for them to call the office if any other issues arise preoperatively. Nash Manzanares MD PROGRESS Observed: 10/19/2024 10:43 AM Status: COMPLETED Source: [facility] HNO ID: [id number] Author: HIRA NAIK Tech Service: ? Author Type: Design Technician Type: Progress Notes Filed: 10/20/2024 11:50 Note Text: REVIEW OF SYSTEMS: GENERAL: Well developed, well nourished. No acute distress PAIN: Negative for pain, history of chronic pain or current treatment for chronic pain conditions CARDIOVASCULAR: Negative for chest pain, leg swelling and palpations. MSK: Negative for joint swelling SKIN: Negative for lesions, rash, itching, metal sensitivity NEURO: Numbness/tingling of extremties ENDOCRINE: Positive for diabetic associated symptoms HEMATOLOGY: Negative for excessive bleeding, clots, bleeding disorders. CBC PNL BLD AUTO Collected: 10/19/2024 10:22 AM Stat us: F Source: [facility] Order Comment: Specimen Type : BLOOD SPECIMEN Ordering Facility: [facility] Address: [address] [place] [address] TYPE CODE TESTS RESULT OUT OF RANGE REFERENCE UNITS LAB 6690-2(LOINC) WBC # Bld Auto 7.18 3.70-11.00 k/uL LAB 789-8(LOINC) RBC # Bld Auto 4.46 3.90-5.20 m/ uL LAB 718-7(LOINC) Hgb Bld-mCnc 12.7 11.5-15.5 g/dL LAB 4544-3(LOINC) Hct VFr Bld Auto 41.0 36.0-46.0 % LAB 787-2(LOINC) MCV RBC Auto 91.9 80.0-100.0 fL LAB 785-6([facility]) MCH RBC Qn Auto 28.5 26.0-34.0 pg LAB 786-4([facility]) MCHC RBC Auto-mCnc 31.0 30.5-36.0 g/dL LAB 64884-2([facility]) RDW RBC-Rto 13.6 11.5-15.0 % LAB 777-3([facility]) Platelet # Bld Auto 168 150-400 k/uL LAB 13807-3([facility]) PMV Bld Auto 11.5 9.0-12.7 fL LAB 771-6([facility]) nRBC # Bld Auto <0.01 <0.01 k/uL Performed By: #### 74428-6 # ### [facility] CLIA [id number] [address] OF [facility] COMP METAB 2000 PNL SERPL Collected: 10:22 AM Status: F Source: [facility] Order Comment: Specimen Type : BLOOD SPECIMEN Ordering Facility: [facility] Address: [address] [place] [address] TYPE CODE TESTS RESULT OUT OF RANGE REFERENCE UNITS LAB 2885-2([facility]) Prot SerPl-mCnc 7.7 6.3-8.0 g/dL LAB 1751-7([facility]) Albumin SerPl-mCnc 3.8 Low 3.9-4.9 g/dL LAB 75353-1([facility]) Calcium SerPl-mCnc 9.1 8.5-10.2 mg/dL LAB 1975-2([facility]) Bilirub SerPl-mCnc 0.2 0.2-1.3 mg/dL LAB 6768-6([facility]) ALP SerPl-cCnc 133 High 34-123 U/L LAB 61236-7([facility]) AST SerPl w P-5'-P-cCnc 27 13-35 U/L LAB 1743-4([facility]) ALT SerPl w P-5'-P-cCnc 20 7-38 U/L LAB 2345-7([facility]) Glucose SerPl-mCnc 96 74-99 mg/dL Result Comment: The [place] [employer] (ADA) provides guidance for cutoff values for fasting glucose and random glucose. The ADA defines fasting as no caloric intake for at least 8 hours. Fasting plasma glucose results between 100 to 125 mg/dL indicate increased risk for diabetes (prediabetes). Fasting plasma glucose results greater than or equal to 126 mg/dL meet the criteria for diagnosis of diabetes. In the absence of unequivocal hyperglycemia, results should be confirmed by repeat testing. In a patient with classic symptoms of hyperglycemia or hyperglycemic crisis, random plasma glucose results greater than or equal to 200 mg/dL meet the criteria for diagnosis of diabetes. Reference: Standards of Medical Care in Diabetes 2016, [place] [employer]. Diabetes Care. 2016.39(Suppl 1). LAB 3094-0(LOINC) BUN SerPl-mCnc 18 7-21 mg/ dL LAB 2160-0(LOINC) Creat SerPl-mCnc 1.28 High 0.58-0.96 mg/dL LAB 2951-2(LOINC) Sodium SerPl-sCnc 142 136-144 mmol/L LAB 2823-3(LOINC) Potassium SerPl-sCnc 4.6 3.7-5.1 mmol/L LAB 2075-0(LOINC) Chloride SerPl-sCnc 101 98-107 mmol/L LAB 2028-9(LOINC) CO2 SerPl-sCnc 31 High 22-30 mmo l/L LAB 1863-0(LOINC) Anion Gap4 SerPl-sCnc 10 8-15 mmol/L LAB 77985-3(LOINC) Creatinine + eGFR Pnl SerPlBld 42 Low >=60 mL/min/1. 73m??? Result Comment: Estimated Gl omerular Filtration Rate (eGFR) is calculated using the 2020 CKD-EPI creatinine equation. This equation utilizes serum creatinine, sex, and age as parameters. The creatinine assay has traceable calibration to isotope dilution-mass spectrometry. Refer to KDIGO guidelines for clinical interpretation. In patients with unstable renal function, e.g. those with acute kidney injury, the eGFR may not accurately reflect actual GFR. Performed By: #### 62668-1 # ### [facility] CLIA [id number] [address] [place] HISTORY PHYSICAL Observed: 10/19/2024 9:00 AM Status: COMPLETED Source: [facility] HNO ID: [id number] Author: LAURITA LOYD APRN.CNP Service: ? Author Type: Nurse Practitioner Type: H&P Filed: 10/19/2024 10:32 Note Text: [facility] HISTORY AND PHYSICAL EXAMINATION SERVICE DATE: 10/19/2024 SERVICE TIME: 10:32 AM PRIMARY CARE PHYSICIAN: Bryson Hernandez MD Assessment Patient has the following medical conditions which may affect daniel-operative course: Primary osteoarthritis of left knee Surgery scheduled with Dr. Manzanares on 10/22/2024 BUTRANS patch, replaces every Tuesday. Instructed to continue as prescribes. Verified instructions with Nikole Leger [facility]. Preop examination Patient has the following medical conditions which may affect daniel-operative course addressed in assessment and plan today. Hypertension Controlled with cardvedilol, instructed to take morning of surgery Hyperlipidemia Statin, continue as prescribed Arteriosclerosis of coronary artery Managed by Dr. Foster, [facility], last OV 10/11/2024 Pt taking ASA I instructed patient to get preop instructions from surgeon and manager business operations. Tobacco abuse 135 pack year history Quit 2006 PABLO (obstructive sleep apnea) Pt does not use CPAP Gastroesophageal reflux disease Controlled with omeprazole, instructed to take morning of surgery Stage 3b chronic kidney disease (HCC) CMP today Diabetes mellitus (HCC) Hemoglobin A1C (%) Date Value 01/20/2024 6.5 Insulin - instructed to get preop instructions from prescribing provider Anemia, unspecified Hemoglobin (g/dL) Date Value 01/24/2024 11.6 Hematocrit (%) Date Value 01/24/2024 35.7 WBC (k/uL) Date Value 01/24/2024 8.10 CBC today Class 1 obesity due to excess calories with body mass index (BMI) of 34.0 to 34.9 in adult BMI 34.78 ANESTHESIA FINDINGS: Intubation History: No history of difficult intubation. No abnormal airway history. No prior intubation Significant Anesthesia Considerations: none Airway History: No history of difficult airway No abnormal airway history No prior intubation [place] Activity Status Index: METS: Climb a flight of stairs or walk up a hill (5.50 METs) DASI Score: 5.5 Patient denies any chest pain or undue shortness of breath with the above physical activity. ARISCAT Score: Age: 51-80 Preoperative SpO2: >=96% Respiratory infection in the last month: No Preoperative anemia: No Surgical incision: peripheral Duration of surgery: >3 hrs Emergency procedure: No ARISCAT Score: 26 I - PHYSICAL EVALUATION AIRWAY Patient intubated: No. DENTAL Dental findings: edentulous. Dentures, lower: complete. II - ANESTHESIA PLAN Anesthetic Plan: general Beta Ariel Monitoring Plan Post Procedure Analgesic Plan Prepared for Surgery: CONSULTS: The following consults have been initiated at this time: cardiology (in [facility] 10/18/2024) and primary care/internal medicine (10/17/2024). Planned Anesthetic: general The Following Tests/Procedures Have Been Initiated: Orders Placed This Encounter mupirocin (BACTROBAN) 2 % ointment Sig: Apply twice daily to each nostril for five days pre-operatively. Start on 10/19/2024. Dispense: 22 g Refill: 0 REASON FOR VISIT: Audra Archer is a 79 year old female who is scheduled for Procedure(s): ARTHROPLASTY REPLACE JOINT TOTAL KNEE (Left) at the request of Dr. Manzanares, Nash Cole MD for routine HANDP. My final recommendation will be communicated back to the requesting physician by way of shared medical record or letter. The reason for this visit is to perform a comprehensive review of the patient's past medical history, assess their current health status and obtain any additional testing required based on anesthesia guidelines. We will also identify any potential anesthesia problems or contraindications to the planned procedure. Subjective The patient has the following: COVID-19 Immunization Status Current Care Gaps Covid-19 Vaccine () Overdue since 08/06/2024 02/07/2024 Imm Admin: COVID-19 vaccine, age 12+ yr (MODERNA) 03/09/2023 Imm Admin: COVID-19 vaccine, age 12+ yr (MODERNA) 12/08/2022 Imm Admin: COVID-19 vaccine, age 12+ yr, bivalent (MODERNA) Only the first 3 history entries have been loaded, but more history exists. CHIEF COMPLAINT: Primary osteoarthritis of left knee HPI: Patient is a 79 year old female here for a preoperative exam. PT complaint of left knee pain for the last 5 years, has been sever the last year. Today pt rates pain 7/10, describes the pain as achy, she feels occasional popping, gives out. Standing and walking, sitting for too long makes the pain worse, Burtan's patch improves the pain. Imaging done, demonstrating osteoarthritis. Pt discussed with surgeon and agrees to surgical intervention. REVIEW OF SYSTEMS: General: Negative for: unintentional weight change, malaise and fever. Neurological: Positive for: headaches. Negative for: seizures and strokes. Respiratory: Positive for: obstructive sleep apnea and CPAP/BiPAP noncompliant. Negative for: asthma, COPD, tobacco use and URI < 2 weeks. Cardiovascular: Positive for: CAD, hyperlipidemia and hypertension Negative for: arrhythmia, chest pain, CHF and DVT/PE. GI: Positive for: GERD Negative for: abdominal pain, nausea and vomiting. : Positive for: renal failure. Patient's renal failure is chronic. Negative for: dysuria and hematuria. 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 Endocrine: Positive for: diabetes mellitus. Patient's diabetes mellitus is controlled by insulin. Negative for: hyperthyroidism and hypothyroidism. Hematology: Positive for: chronic anti-coagulation/platelet meds. Patient is on anti-coagulation/platelet medication(s): Aspirin. Negative for: anemia, factor V Leiden and von Willebrand disease. Oncology: No history of CA metastasis, chemo within 30 days, or radiotherapy within 90 days. No history of oncological symptoms or problems. Psych: Positive for: depression. Negative for: anxiety. Musculoskeletal: See HPI. Skin: Negative for lesions, rash and itching. PAST MEDICAL HISTORY Diagnosis Date Angina pectoris Chronic kidney disease, stage 3b (HCC) Coronary arteriosclerosis Depression GERD (gastroesophageal reflux disease) HLD (hyperlipidemia) HTN (hypertension) Neuropathy bilateral feet Obesity PABLO (obstructive sleep apnea) Primary osteoarthritis of left knee Right hip pain Tobacco abuse 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 PAST SURGICAL HISTORY Procedure Laterality Date APPENDECTOMY 1955 L'SCOPE CHOLECYSTECTOMY LIGATE FALLOPIAN TUBE PAST SURGICAL HISTORY OF C5 and C6 fusion with titanium PAST SURGICAL HISTORY OF Right 02/06/2024 right [place] TOTAL ABDOM HYSTERECTOMY TX INTER/NY/SUBTRCHNTRIC FEMORAL FX SCREW IMPLT Right 11/07/2021 FAMILY HISTORY Problem Relation Age of Onset Diabetes Mother Heart Mother Lung Cancer Mother Social History Tobacco Use Smoking status: Former Current packs/day: 0.00 Average packs/day: 3.0 packs/day for 45.0 years (135.0 ttl pk-yrs) Types: Cigarettes Start date: 12/1961 Quit date: 12/2006 Years since quittin.8 Smokeless tobacco: Never Vaping Use Vaping status: Never Used Substance Use Topics Alcohol use: Not Currently Drug use: Never Prior to Admission medications as of 10/19/24 0853 Medication Sig Last Dose Taking nystatin (MYCOSTATIN) powder APPLY EXTERNALLY TWICE DAILY Yes Menthol-Zinc Oxide (CALMOSEPTINE) 0.44-20.6 % Apply to affected area two times a day as needed. Yes acetaminophen (TYLENOL) 325 mg tablet Take 2 tablets by mouth every 6 hours as needed for pain. Yes magnesium chloride (SLOW-MAG ORAL) Take 1-2 tablets by mouth daily at bedtime. Yes LOW-DOSE ASPIRIN ORAL 81 mg once daily. Yes insulin lispro (HUMALOG U-100 INSULIN) 100 unit/mL injection Inject 5-10 Units subcutaneously three times a day before meals. Based in glucose level Yes TOUJEO MAX U-300 SOLOSTAR 300 unit/mL (3 mL) inpn Inject 60 Units subcutaneously daily at bedtime. Yes buprenorphine (BUTRANS) 20 mcg/hour transdermal patch 1 Patch one time a week. Yes carvedilol (COREG) 6.25 mg tablet Take 6.25 mg by mouth two times a day with meals. Yes citalopram hydrobromide (CELEXA) 10 mg tablet Take 10 mg by mouth once daily. Yes isosorbide mononitrate ER (IMDUR) 30 mg 24 hr tablet Take 30 mg by mouth once daily. Yes nitroglycerin sublingual (NITROQUICK) 0.4 mg SL tablet Dissolve 0.4 mg under the tongue every 5 minutes as needed for chest pain. Yes omeprazole (PRILOSEC) 40 mg capsule Take 40 mg by mouth two times a day. Yes pregabalin (LYRICA) 150 mg capsule Take 150 mg by mouth three times daily. Yes mupirocin (BACTROBAN) 2 % ointment Apply twice daily to each nostril for five days pre-operatively. Start on 10/19/2024. DEXCOM G7 SENSOR beth Inject 1 application subcutaneously as directed. No medication comments found. ALLERGIES Allergen Reactions Ciprofloxacin GI Upset, Other: See Comments Convulsions Metformin Hives, Vomiting Kkjhcem-Nyg-Otm Red* Hives Sulfa (Sulfonamide * Anaphylaxis, Other: See Comments, Unknown Baclofen Other: See Comments Could not function Codeine Mental Status Change hallucinations Neosporin [Benzalko* Rash [place] Unknown Tetanus And Diphthe* Other: See Comments Dizziness, syncope Objective PHYSICAL EXAM: General: alert and oriented and healthy appearance. Pertinent negatives noted - not distressed. Skin: normal color, no rash or lesions. HEENT: No additional findings for patient's neck. Cardiovascular: regular rate and rhythm, normal S1 and S2, no rub, murmurs, or gallop. Respiratory: normal breath sounds, no wheezes or crackles. No chest wall deformity or tenderness. Abdomen: bowel sounds present and soft. Pertinent negatives noted - not tender. Extremities: no deformity, no edema or tenderness, no joint swelling or clubbing. Neurological: normal cognition and motor skills. Gait normal. No weakness or sensory deficit. PAIN ASSESSMENT: Pain Pain Level: 7 Pain Location: Knee-Left VITALS: BP 101/64 Pulse 60 Temp 97.7 Resp 16 Ht 5' 5 (1.65m) Wt 212 lb (96.2kg) SpO2 98% BMI 35.28 kg/(m2). Diagnostic tests reviewed for today's visit: Lab Value Units Date High Low HB No results within date range. HCT No results within date range. WBC No results within date range. PLT No results within date range. NA No results within date range. K No results within date range. GLUC No results within date range. BUN No results within date range. CREAT No results within date range. PTSEC No results within date range. INR No results within date range. APTT No results within date range. ALT No results within date range. AST No results within date range. TBILI No results within date range. TSH No results within date range. Lab Value Units Date High Low HCGQT No results within date range. UHCG No results within date range. HCG, BODY* No results within date range. Lab Value Units Date High Low ABORHD No results within date range. ABSCREEN No results within date range. Hemoglobin A1C (%) Date Value 01/20/2024 6.5 11/07/2021 7.1 No results found for this or any previous visit (from the past 8760 hours). No results found for this or any previous visit (from the past 68226 hours). 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 Patient given verbal and written preop instructions and voices comprehension and compliance. I spent a total of 60 minutes on the date of the service which included preparing to see the patient, [id number] patient care, completing clinical documentation, obtaining and/or reviewing separately obtained history, performing a medically appropriate examination, counseling and educating the patient/family/caregiver, and ordering medications, tests, or procedures. SIGNATURE: Laurita Loyd APRN.ALEXANDRA PATIENT NAME: Audra Archer DATE: October 19, 2024 TIME: 9:43 AM PAGER/CONTACT #: NURSING PROG Observed: 10/18/2024 11:03 AM Status: COMPLETED Source: [facility] HNO ID: [id number] Author: SANDRA TAYLOR RN Service: Nursing Author Type: Registered Nurse Type: Nursing Progress Note Filed: 10/18/2024 11:04 Note Text: Does patient want another opportunity to revisit surgical decision with surgeon prior to surgery? No If yes, message sent to surgeon. N/A ALEXANDRAN Observed: 10/18/2024 12:00 AM Status: COMPLETED Source: [facility] Telephone ([id number]) GRACEBARTOLOAUDRAAFIA GIRARDDANILO ([id number]) 1945 F Date Time Provider Department 10/18/24 NASH [facility]ANARES [facility] During your visit today, we recorded the following information about you: Shama Yo 10/18/2024 4:17 PM Signed I called patient and talked to her. Have you completed the OME Survey via [employer]? no (You can't be registered for surgery until the survey is completed) Procedure is scheduled for: 6-2 @ 11a Arrival time: 9a NPO after midnight. Please bring walker, crutches, braces or slings if applicable. Shama Yo Allergies As of Date: 10/18/2024 Noted Allergy Reaction CIPROFLOXACIN 11/06/2021 8 - GI Upset 14 - Other: See Comments Comments: Convulsions METFORMIN 11/16/2021 4 - Hives 11 - Vomiting [id number] REDUCTASE INHIBIT*11/05/2021 4 - Hives SULFA (SULFONAMIDE ANTIBIOTICS) 11/05/2021 10 - Anaphylaxis 14 - Other: See Comments 16 - Unknown BACLOFEN 10/18/2024 14 - Other: See Comments Comments: Could not function CODEINE 11/05/2021 1 - Mental Status Change Comments: hallucinations NEOSPORIN (BENZALKONIUM CHLORIDE) 11/06/2021 2 - Rash KAMERON 10/11/2024 16 - Unknown TETANUS AND DIPHTHER. TOX (PF) 01/13/2024 14 - Other: See Comments Comments: Dizziness, syncope Date Reviewed: 10/18/2024 Reviewed by: Sandra Taylor, BILLY - Fully Assessed Prescriptions as of 10/18/2024 - nystatin (MYCOSTATIN) powder APPLY EXTERNALLY TWICE DAILY - Menthol-Zinc Oxide (CALMOSEPTINE) 0.44-20.6 % Apply to affected area two times a day as needed. - acetaminophen (TYLENOL) 325 mg tablet Take 2 tablets by mouth every 6 hours as needed for pain. - magnesium chloride (SLOW-MAG ORAL) Take 1-2 tablets by mouth daily at bedtime. - LOW-DOSE ASPIRIN ORAL 81 mg once daily. - insulin lispro (HUMALOG U-100 INSULIN) 100 unit/mL injection Inject 5-10 Units subcutaneously three times a day before meals. Based in glucose level - TOUJEO MAX U-300 SOLOSTAR 300 unit/mL (3 mL) inpn Inject 30 Units subcutaneously daily at bedtime. - buprenorphine (BUTRANS) 20 mcg/hour transdermal patch 1 Patch one time a week. - DEXCOM G7 SENSOR bteh Inject 1 application subcutaneously as directed. - carvedilol (COREG) 6.25 mg tablet Take 6.25 mg by mouth two times a day with meals. - citalopram hydrobromide (CELEXA) 10 mg tablet Take 10 mg by mouth once daily. - isosorbide mononitrate ER (IMDUR) 30 mg 24 hr tablet Take 30 mg by mouth once daily. - nitroglycerin sublingual (NITROQUICK) 0.4 mg SL tablet Dissolve 0.4 mg under the tongue every 5 minutes as needed for chest pain. - omeprazole (PRILOSEC) 40 mg capsule Take 40 mg by mouth two times a day. - pregabalin (LYRICA) 150 mg capsule Take 150 mg by mouth three times daily. Problem List As Of Date 10/18/2024 Noted Resolved Intertrochanteric fracture of right femur, clos*11/05/2021 Obesity, Class II, BMI 35-39.9 [E66.812] 11/06/2021 Anemia, unspecified [D64.9] 12/13/2022 Stage 3b chronic kidney disease (HCC) [N18.32] 12/30/2023 Hypertension [I10] 12/30/2023 Hyperlipidemia [E78.5] 06/07/2023 Gastroesophageal reflux disease [K21.9] 12/30/2023 Diabetes mellitus (HCC) [E11.9] 12/30/2023 Depressive disorder [F32.A] 12/30/2023 Pain in right hip [M25.551] 12/22/2022 Stage 3 chronic kidney disease (HCC) [N18.30] 11/08/2022 Arteriosclerosis of coronary artery [I25.10] 12/30/2023 Class 1 obesity due to excess calories with bod*12/30/2023 PABLO (obstructive sleep apnea) [G47.33] 12/30/2023 Tobacco abuse [Z72.0] 12/30/2023 Status post total hip replacement, right [Z96.6*01/19/2024 Primary osteoarthritis of left knee [M17.12] 10/18/2024 Preop examination [Z01.818] 10/18/2024 Encounter Status:Closed by SHAMA YO on 10/18/24 CNPN Observed: 10/17/2024 12:00 AM Status: COMPLETED Source: [facility] Telephone ([id number]) AUDRA ARCHER ([id number]) 1945 F Date Time Provider Department 10/17/24 MABLE PORTILLO [id number] During your visit today, we recorded the following information about you: Mable Portillo RN 10/17/2024 9:36 AM Signed ORTHOPAEDIC COORDINATION OF CARE Discharge Disposition (Planned): Longterm Facility Discharge Transportation: Car Number of Entry Steps: 3 Bedroom Location: First floor Bathroom Location: First floor Caregiver Assistance: Occasionally Available (2-4 days/wk) Home Location: n/a Stair Mobility: Greater than 3 stairs Bundle Inclusion: Yes SIGNATURE: Mable Portillo RN DATE: October 17, 2024 TIME: 9:35 AM Patient is planning discharge to [facility] (like [facility] time), she doesn't have consistent help at home. She lives in a [place] home, has 3 steps to enter. She has a ww/cane at home. Allergies As of Date: 10/17/2024 Noted Allergy Reaction TETANUS AND DIPHTHER. TOX (PF) 01/13/2024 14 - Other: See Comments Comments: dizziness CIPROFLOXACIN 11/06/2021 8 - GI Upset CODEINE 11/05/2021 14 - Other: See Comments Comments: Tolerated oxycodone October 2021 METFORMIN 11/16/2021 4 - Hives Comments: vomiting NEOSPORIN (BENZALKONIUM CHLORIDE) 11/06/2021 2 - Rash [id number]-[id number] REDUCTASE INHIBIT*11/05/2021 14 - Other: See Comments SULFA (SULFONAMIDE ANTIBIOTICS) 11/05/2021 14 - Other: See Comments Date Reviewed: 03/30/2024 Reviewed by: Samuel Syed Tech - Fully Assessed Reason for Visit: PreOp Call [[id number]] Prescriptions as of 10/17/2024 - Menthol-Zinc Oxide (CALMOSEPTINE) 0.44-20.6 % Apply to affected area two times a day as needed. - aspirin, enteric coated (ASPIRIN, ENTERIC COATED) 81 mg EC tablet Take 1 tablet by mouth two times a day for 21 days. Once BID dosing completed in 21 days, okay to resume daily home dose - acetaminophen (TYLENOL) 325 mg tablet Take 2 tablets by mouth every 6 hours as needed for pain. - magnesium chloride (SLOW-MAG ORAL) Take 1-2 tablets by mouth at bedtime as needed (constipation). - LOW-DOSE ASPIRIN ORAL 81 mg once daily. - insulin lispro (HUMALOG U-100 INSULIN) 100 unit/mL injection Inject 5-10 Units subcutaneously three times a day before meals. Based in glucose level - TOUJEO MAX U-300 SOLOSTAR 300 unit/mL (3 mL) inpn Inject 30 Units subcutaneously daily at bedtime. - buprenorphine (BUTRANS) 20 mcg/hour transdermal patch 1 Patch one time a week. - DEXCOM G7 SENSOR beth as directed. - amLODIPine (NORVASC) 5 mg tablet Take 5 mg by mouth once daily. - carvedilol (COREG) 6.25 mg tablet Take 6.25 mg by mouth two times a day with meals. - citalopram hydrobromide (CELEXA) 10 mg tablet Take 10 mg by mouth once daily. - isosorbide mononitrate ER (IMDUR) 30 mg 24 hr tablet Take 30 mg by mouth once daily. - nitroglycerin sublingual (NITROQUICK) 0.4 mg SL tablet Dissolve 0.4 mg under the tongue every 5 minutes as needed for chest pain. - omeprazole (PRILOSEC) 40 mg capsule Take 40 mg by mouth two times a day. - pregabalin (LYRICA) 150 mg capsule Take 150 mg by mouth three times daily. Problem List As Of Date 10/17/2024 Noted Resolved Intertrochanteric fracture of right femur, clos*11/05/2021 Obesity, Class II, BMI 35-39.9 [E66.812] 11/06/2021 Anemia, unspecified [D64.9] 12/13/2022 Stage 3b chronic kidney disease (HCC) [N18.32] 12/30/2023 Hypertension [I10] 12/30/2023 Hyperlipidemia [E78.5] 06/07/2023 Gastroesophageal reflux disease [K21.9] 12/30/2023 Diabetes mellitus (HCC) [E11.9] 12/30/2023 Depressive disorder [F32.A] 12/30/2023 Pain in right hip [M25.551] 12/22/2022 Stage 3 chronic kidney disease (HCC) [N18.30] 11/08/2022 Arteriosclerosis of coronary artery [I25.10] 12/30/2023 Class 1 obesity due to excess calories with bod*12/30/2023 PABLO (obstructive sleep apnea) [G47.33] 12/30/2023 Tobacco abuse [Z72.0] 12/30/2023 Status post total hip replacement, right [Z96.6*01/19/2024 Encounter Status:Closed by MABLE PORTILLO on 10/17/24 CNCO Observed: 10/09/2024 12:00 AM Status: COM PLETED Source: [facility] Letter Text CNCO Observed: 10/09/2024 12:00 AM Status: COM PLETED Source: [facility] Letter Text CNPN Observed: 10/09/2024 12:00 AM Status: COMPLETED Source: [facility] Telephone ([id number]) AUDRA ARCHER ([id number]) 1945 F Date Time Provider Department 10/09/24 NASH MANZANARES [id number] During your visit today, we recorded the following information about you: Allergies As of Date: 10/09/2024 Noted Allergy Reaction TETANUS AND DIPHTHER. TOX (PF) 01/13/2024 14 - Other: See Comments Comments: dizziness CIPROFLOXACIN 11/06/2021 8 - GI Upset CODEINE 11/05/2021 14 - Other: See Comments Comments: Tolerated oxycodone October 2021 METFORMIN 11/16/2021 4 - Hives Comments: vomiting NEOSPORIN (BENZALKONIUM CHLORIDE) 11/06/2021 2 - Rash [id number]-[id number] REDUCTASE INHIBIT*11/05/2021 14 - Other: See Comments SULFA (SULFONAMIDE ANTIBIOTICS) 11/05/2021 14 - Other: See Comments Date Reviewed: 03/30/2024 Reviewed by: Samuel Syed Tech - Fully Assessed Reason for Visit: Schedule Surgery [1330] Primary Visit Diagnosis:Primary osteoarthritis of left knee [M17.12] Order(s):SURGICAL REQUEST - ELECTIVE (12/2019) [[id number]] Order #: [id number]: 1 Prescriptions as of 10/09/2024 - Menthol-Zinc Oxide (CALMOSEPTINE) 0.44-20.6 % Apply to affected area two times a day as needed. - aspirin, enteric coated (ASPIRIN, ENTERIC COATED) 81 mg EC tablet Take 1 tablet by mouth two times a day for 21 days. Once BID dosing completed in 21 days, okay to resume daily home dose - acetaminophen (TYLENOL) 325 mg tablet Take 2 tablets by mouth every 6 hours as needed for pain. - magnesium chloride (SLOW-MAG ORAL) Take 1-2 tablets by mouth at bedtime as needed (constipation). - LOW-DOSE ASPIRIN ORAL 81 mg once daily. - insulin lispro (HUMALOG U-100 INSULIN) 100 unit/mL injection Inject 5-10 Units subcutaneously three times a day before meals. Based in glucose level - TOUJEO MAX U-300 SOLOSTAR 300 unit/mL (3 mL) inpn Inject 30 Units subcutaneously daily at bedtime. - buprenorphine (BUTRANS) 20 mcg/hour transdermal patch 1 Patch one time a week. - DEXCOM G7 SENSOR beth as directed. - amLODIPine (NORVASC) 5 mg tablet Take 5 mg by mouth once daily. - carvedilol (COREG) 6.25 mg tablet Take 6.25 mg by mouth two times a day with meals. - citalopram hydrobromide (CELEXA) 10 mg tablet Take 10 mg by mouth once daily. - isosorbide mononitrate ER (IMDUR) 30 mg 24 hr tablet Take 30 mg by mouth once daily. - nitroglycerin sublingual (NITROQUICK) 0.4 mg SL tablet Dissolve 0.4 mg under the tongue every 5 minutes as needed for chest pain. - omeprazole (PRILOSEC) 40 mg capsule Take 40 mg by mouth two times a day. - pregabalin (LYRICA) 150 mg capsule Take 150 mg by mouth three times daily. Problem List As Of Date 10/09/2024 Noted Resolved Intertrochanteric fracture of right femur, clos*11/05/2021 Obesity, Class II, BMI 35-39.9 [E66.812] 11/06/2021 Anemia, unspecified [D64.9] 12/13/2022 Stage 3b chronic kidney disease (HCC) [N18.32] 12/30/2023 Hypertension [I10] 12/30/2023 Hyperlipidemia [E78.5] 06/07/2023 Gastroesophageal reflux disease [K21.9] 12/30/2023 Diabetes mellitus (HCC) [E11.9] 12/30/2023 Depressive disorder [F32.A] 12/30/2023 Pain in right hip [M25.551] 12/22/2022 Stage 3 chronic kidney disease (HCC) [N18.30] 11/08/2022 Arteriosclerosis of coronary artery [I25.10] 12/30/2023 Class 1 obesity due to excess calories with bod*12/30/2023 PABLO (obstructive sleep apnea) [G47.33] 12/30/2023 Tobacco abuse [Z72.0] 12/30/2023 Status post total hip replacement, right [Z96.6*01/19/2024 Encounter Status:Closed by SHAMA YO on 10/09/24 PROGRESS Observed: 10/08/2024 7:42 PM Status: COMPLETED Source: [facility] HNO ID: [id number] Author: NASH MANZANARES MD Service: ? Author Type: Physician Type: Progress Notes Filed: 10/08/2024 19:45 Note Text: ORTHOPAEDIC OFFICE NOTE HISTORY OF PRESENT ILLNESS: Audra Archer is a 79 year old female who presents for follow-up of her right total hip. This is doing phenomenally well. Very pleased with her pain relief and increased mobility. At this point she is now more disabled by her end-stage left knee arthritis. Would like to discuss surgical scheduling. Uses a walker mainly because of her left knee. Has episodes of painful buckling. Reviewed nursing note and current pain scale. PAST MEDICAL HISTORY Diagnosis Date Angina pectoris (HCC) Depression GERD (gastroesophageal reflux disease) HLD (hyperlipidemia) HTN (hypertension) Neuropathy bilateral feet Right hip pain 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 PAST SURGICAL HISTORY Procedure Laterality Date L'SCOPE CHOLECYSTECTOMY PAST SURGICAL HISTORY OF C5 and C6 fusion with titanium PAST SURGICAL HISTORY OF Right 02/06/2024 right [place] TOTAL ABDOM HYSTERECTOMY TX INTER/NY/SUBTRCHNTRIC FEMORAL FX SCREW IMPLT Right 11/07/2021 FAMILY HISTORY Problem Relation Age of Onset Diabetes Mother Heart Mother Lung Cancer Mother Social History Tobacco Use Smoking status: Former Current packs/day: 0.00 Average packs/day: 3.0 packs/day for 45.0 years (135.0 ttl pk-yrs) Types: Cigarettes Start date: 12/1961 Quit date: 12/2006 Years since quittin.8 Smokeless tobacco: Never Vaping Use Vaping status: Never Used Substance Use Topics Alcohol use: Not Currently Drug use: Never MEDICATIONS: Current Outpatient Medications Medication Sig Menthol-Zinc Oxide (CALMOSEPTINE) 0.44-20.6 % Apply to affected area two times a day as needed. acetaminophen (TYLENOL) 325 mg tablet Take 2 tablets by mouth every 6 hours as needed for pain. magnesium chloride (SLOW-MAG ORAL) Take 1-2 tablets by mouth at bedtime as needed (constipation). LOW-DOSE ASPIRIN ORAL 81 mg once daily. insulin lispro (HUMALOG U-100 INSULIN) 100 unit/mL injection Inject 5-10 Units subcutaneously three times a day before meals. Based in glucose level TOUJEO MAX U-300 SOLOSTAR 300 unit/mL (3 mL) inpn Inject 30 Units subcutaneously daily at bedtime. buprenorphine (BUTRANS) 20 mcg/hour transdermal patch 1 Patch one time a week. JobpartnersCOM G7 SENSOR beth as directed. carvedilol (COREG) 6.25 mg tablet Take 6.25 mg by mouth two times a day with meals. citalopram hydrobromide (CELEXA) 10 mg tablet Take 10 mg by mouth once daily. isosorbide mononitrate ER (IMDUR) 30 mg 24 hr tablet Take 30 mg by mouth once daily. nitroglycerin sublingual (NITROQUICK) 0.4 mg SL tablet Dissolve 0.4 mg under the tongue every 5 minutes as needed for chest pain. omeprazole (PRILOSEC) 40 mg capsule Take 40 mg by mouth two times a day. pregabalin (LYRICA) 150 mg capsule Take 150 mg by mouth three times daily. aspirin, enteric coated (ASPIRIN, ENTERIC COATED) 81 mg EC tablet Take 1 tablet by mouth two times a day for 21 days. Once BID dosing completed in 21 days, okay to resume daily home dose amLODIPine (NORVASC) 5 mg tablet Take 5 mg by mouth once daily. No current facility-administered medications for this visit. ALLERGIES: ALLERGIES Allergen Reactions Tetanus And Diphthe* Other: See Comments dizziness Ciprofloxacin GI Upset Codeine Other: See Comments Tolerated oxycodone October 2021 Metformin Hives vomiting Neosporin [Benzalko* Rash Vlwiyms-Zda-Fxx Red* Other: See Comments Sulfa (Sulfonamide * Other: See Comments PHYSICAL EXAMINATION: Resp 16 Ht 5' 5 (1.65m) Wt 209 lb (94.8kg) BMI 34.78 kg/(m2). General Appearance: Well appearing, alert, in no acute distress, well-hydrated, well nourished. Skin: Skin color, texture, turgor normal, no suspicious rashes or lesions. Extremities: Left knee demonstrates a 15 degree valgus deformity that does correct to neutral with varus stress. Tricompartmental crepitus with motion. 0 to 120 degrees range of motion. Good hip rotation pain-free. IMAGES: Prior radiographs reviewed showing severe arthritis in the left knee with valgus deformity. Stable cemented right total hip. ASSESSMENT AND PLAN: 1. Primary osteoarthritis of left knee - ICD9: 715.16, ICD10: M17.12 (primary diagnosis) 2. Status post total hip replacement, right - ICD9: V43.64, ICD10: Z96.641 Functional Plan: At this point she feels recovered enough from her hip that she would like to proceed with her knee surgery. I discussed this with her and her daughter today including a discussion on the general risk, benefits and the expected postoperative recovery. Contrasted with them some of the differences between recovery of hip and knee replacement surgery. All questions were answered to their apparent satisfaction we will proceed with surgical scheduling. I will see her back for final preop visit. Sooner if there is any issues. Will continue to monitor patient for Primary osteoarthritis of left knee (primary encounter diagnosis) Status post total hip replacement, right, patient to schedule visit as per follow up discussed. Nash Manzanares MD CNOV Observed: 10/05/2024 11:00 AM Status: COMPLETED Source: [facility] Office Visit ([email or web address]) AUDRA ARCHER ([id number]) 1945 F Date Time Provider Department 10/05/24 11:00 AM NASH MANZANARES [id number] During your visit today, we recorded the following information about you: Respiration Weight Height 16/minute 94.8 kg 1.651 m Samuel Syed Tech 10/08/2024 7:45 PM Signed REVIEW OF SYSTEMS: GENERAL: Well developed, well nourished. No acute distress PAIN: left knee pain CARDIOVASCULAR: Negative for chest pain, leg swelling and palpations. MSK: Positive for joint swelling SKIN: Negative for lesions, rash, itching, metal sensitivity NEURO: Negative for seizure, trauma, numbness/tingling of extremities. ENDOCRINE: Positive for diabetic associated symptoms HEMATOLOGY: Negative for excessive bleeding, clots, bleeding disorders. Nash Manzanares MD 10/05/2024 10:53 AM Signed We will call with surgery date Nash Manzanares MD 10/08/2024 7:45 PM Signed ORTHOPAEDIC OFFICE NOTE HISTORY OF PRESENT ILLNESS: Audra Archer is a 79 year old female who presents for follow-up of her right total hip. This is doing phenomenally well. Very pleased with her pain relief and increased mobility. At this point she is now more disabled by her end-stage left knee arthritis. Would like to discuss surgical scheduling. Uses a walker mainly because of her left knee. Has episodes of painful buckling. Reviewed nursing note and current pain scale. PAST MEDICAL HISTORY Diagnosis Date Angina pectoris (HCC) Depression GERD (gastroesophageal reflux disease) HLD (hyperlipidemia) HTN (hypertension) Neuropathy bilateral feet Right hip pain 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 PAST SURGICAL HISTORY Procedure Laterality Date L'SCOPE CHOLECYSTECTOMY PAST SURGICAL HISTORY OF C5 and C6 fusion with titanium PAST SURGICAL HISTORY OF Right 02/06/2024 right [place] TOTAL ABDOM HYSTERECTOMY TX INTER/NY/SUBTRCHNTRIC FEMORAL FX SCREW IMPLT Right 11/07/2021 FAMILY HISTORY Problem Relation Age of Onset Diabetes Mother Heart Mother Lung Cancer Mother Social History Tobacco Use Smoking status: Former Current packs/day: 0.00 Average packs/day: 3.0 packs/day for 45.0 years (135.0 ttl pk-yrs) Types: Cigarettes Start date: 12/1961 Quit date: 12/2006 Years since quittin.8 Smokeless tobacco: Never Vaping Use Vaping status: Never Used Substance Use Topics Alcohol use: Not Currently Drug use: Never MEDICATIONS: Current Outpatient Medications Medication Sig Menthol-Zinc Oxide (CALMOSEPTINE) 0.44-20.6 % Apply to affected area two times a day as needed. acetaminophen (TYLENOL) 325 mg tablet Take 2 tablets by mouth every 6 hours as needed for pain. magnesium chloride (SLOW-MAG ORAL) Take 1-2 tablets by mouth at bedtime as needed (constipation). LOW-DOSE ASPIRIN ORAL 81 mg once daily. insulin lispro (HUMALOG U-100 INSULIN) 100 unit/mL injection Inject 5-10 Units subcutaneously three times a day before meals. Based in glucose level TOUJEO MAX U-300 SOLOSTAR 300 unit/mL (3 mL) inpn Inject 30 Units subcutaneously daily at bedtime. buprenorphine (BUTRANS) 20 mcg/hour transdermal patch 1 Patch one time a week. DEXCOM G7 SENSOR beth as directed. carvedilol (COREG) 6.25 mg tablet Take 6.25 mg by mouth two times a day with meals. citalopram hydrobromide (CELEXA) 10 mg tablet Take 10 mg by mouth once daily. isosorbide mononitrate ER (IMDUR) 30 mg 24 hr tablet Take 30 mg by mouth once daily. nitroglycerin sublingual (NITROQUICK) 0.4 mg SL tablet Dissolve 0.4 mg under the tongue every 5 minutes as needed for chest pain. omeprazole (PRILOSEC) 40 mg capsule Take 40 mg by mouth two times a day. pregabalin (LYRICA) 150 mg capsule Take 150 mg by mouth three times daily. aspirin, enteric coated (ASPIRIN, ENTERIC COATED) 81 mg EC tablet Take 1 tablet by mouth two times a day for 21 days. Once BID dosing completed in 21 days, okay to resume daily home dose amLODIPine (NORVASC) 5 mg tablet Take 5 mg by mouth once daily. No current facility-administered medications for this visit. ALLERGIES: ALLERGIES Allergen Reactions Tetanus And Diphthe* Other: See Comments dizziness Ciprofloxacin GI Upset Codeine Other: See Comments Tolerated oxycodone October 2021 Metformin Hives vomiting Neosporin [Benzalko* Rash Butvdkn-Yri-Epc Red* Other: See Comments Sulfa (Sulfonamide * Other: See Comments PHYSICAL EXAMINATION: Resp 16 Ht 5' 5 (1.65m) Wt 209 lb (94.8kg) BMI 34.78 kg/(m2). General Appearance: Well appearing, alert, in no acute distress, well-hydrated, well nourished. Skin: Skin color, texture, turgor normal, no suspicious rashes or lesions. Extremities: Left knee demonstrates a 15 degree valgus deformity that does correct to neutral with varus stress. Tricompartmental crepitus with motion. 0 to 120 degrees range of motion. Good hip rotation pain-free. IMAGES: Prior radiographs reviewed showing severe arthritis in the left knee with valgus deformity. Stable cemented right total hip. ASSESSMENT AND PLAN: 1. Primary osteoarthritis of left knee - ICD9: 715.16, ICD10: M17.12 (primary diagnosis) 2. Status post total hip replacement, right - ICD9: V43.64, ICD10: Z96.641 Functional Plan: At this point she feels recovered enough from her hip that she would like to proceed with her knee surgery. I discussed this with her and her daughter today including a discussion on the general risk, benefits and the expected postoperative recovery. Contrasted with them some of the differences between recovery of hip and knee replacement surgery. All questions were answered to their apparent satisfaction we will proceed with surgical scheduling. I will see her back for final preop visit. Sooner if there is any issues. Will continue to monitor patient for Primary osteoarthritis of left knee (primary encounter diagnosis) Status post total hip replacement, right, patient to schedule visit as per follow up discussed. Nash Manzanares MD Allergies As of Date: 10/05/2024 Noted Allergy Reaction TETANUS AND DIPHTHER. TOX (PF) 01/13/2024 14 - Other: See Comments Comments: dizziness CIPROFLOXACIN 11/06/2021 8 - GI Upset CODEINE 11/05/2021 14 - Other: See Comments Comments: Tolerated oxycodone October 2021 METFORMIN 11/16/2021 4 - Hives Comments: vomiting NEOSPORIN (BENZALKONIUM CHLORIDE) 11/06/2021 2 - Rash [id number]-[id number] REDUCTASE INHIBIT*11/05/2021 14 - Other: See Comments SULFA (SULFONAMIDE ANTIBIOTICS) 11/05/2021 14 - Other: See Comments Date Reviewed: 03/30/2024 Reviewed by: Samuel Syed Tech - Fully Assessed Reason for Visit: Follow Up [171] Follow Up [171] Primary Visit Diagnosis:Primary osteoarthritis of left knee [M17.12] Other Visit Diagnosis:Status post total hip replacement, right [Z96.641] Prescriptions as of 10/08/2024 - Menthol-Zinc Oxide (CALMOSEPTINE) 0.44-20.6 % Apply to affected area two times a day as needed. - aspirin, enteric coated (ASPIRIN, ENTERIC COATED) 81 mg EC tablet Take 1 tablet by mouth two times a day for 21 days. Once BID dosing completed in 21 days, okay to resume daily home dose - acetaminophen (TYLENOL) 325 mg tablet Take 2 tablets by mouth every 6 hours as needed for pain. - magnesium chloride (SLOW-MAG ORAL) Take 1-2 tablets by mouth at bedtime as needed (constipation). - LOW-DOSE ASPIRIN ORAL 81 mg once daily. - insulin lispro (HUMALOG U-100 INSULIN) 100 unit/mL injection Inject 5-10 Units subcutaneously three times a day before meals. Based in glucose level - TOUJEO MAX U-300 SOLOSTAR 300 unit/mL (3 mL) inpn Inject 30 Units subcutaneously daily at bedtime. - buprenorphine (BUTRANS) 20 mcg/hour transdermal patch 1 Patch one time a week. - DEXCOM G7 SENSOR beth as directed. - amLODIPine (NORVASC) 5 mg tablet Take 5 mg by mouth once daily. - carvedilol (COREG) 6.25 mg tablet Take 6.25 mg by mouth two times a day with meals. - citalopram hydrobromide (CELEXA) 10 mg tablet Take 10 mg by mouth once daily. - isosorbide mononitrate ER (IMDUR) 30 mg 24 hr tablet Take 30 mg by mouth once daily. - nitroglycerin sublingual (NITROQUICK) 0.4 mg SL tablet Dissolve 0.4 mg under the tongue every 5 minutes as needed for chest pain. - omeprazole (PRILOSEC) 40 mg capsule Take 40 mg by mouth two times a day. - pregabalin (LYRICA) 150 mg capsule Take 150 mg by mouth three times daily. Problem List As Of Date 10/05/2024 Noted Resolved Intertrochanteric fracture of right femur, clos*11/05/2021 Obesity, Class II, BMI 35-39.9 [E66.812] 11/06/2021 Anemia, unspecified [D64.9] 12/13/2022 Stage 3b chronic kidney disease (HCC) [N18.32] 12/30/2023 Hypertension [I10] 12/30/2023 Hyperlipidemia [E78.5] 06/07/2023 Gastroesophageal reflux disease [K21.9] 12/30/2023 Diabetes mellitus (HCC) [E11.9] 12/30/2023 Depressive disorder [F32.A] 12/30/2023 Pain in right hip [M25.551] 12/22/2022 Stage 3 chronic kidney disease (HCC) [N18.30] 11/08/2022 Arteriosclerosis of coronary artery [I25.10] 12/30/2023 Class 1 obesity due to excess calories with bod*12/30/2023 PABLO (obstructive sleep apnea) [G47.33] 12/30/2023 Tobacco abuse [Z72.0] 12/30/2023 Status post total hip replacement, right [Z96.6*01/19/2024 Other instructions from your clinician: We will call with surgery date Letter Text Encounter Status:Closed by NASH MANZANARES on 10/08/24 PROGRESS Observed: 10/05/2024 10:38 AM Status: COMPLETED Source: [facility] HNO ID: [id number] Author: SAMUEL SYED Tech Service: ? Author Type: Design Technician Type: Progress Notes Filed: 10/08/2024 19:45 Note Text: REVIEW OF SYSTEMS: GENERAL: Well developed, well nourished. No acute distress PAIN: left knee pain CARDIOVASCULAR: Negative for chest pain, leg swelling and palpations. MSK: Positive for joint swelling SKIN: Negative for lesions, rash, itching, metal sensitivity NEURO: Negative for seizure, trauma, numbness/tingling of extremities. ENDOCRINE: Positive for diabetic associated symptoms HEMATOLOGY: Negative for excessive bleeding, clots, bleeding disorders. PROGRESS Observed: 03/30/2024 11:01 AM Status: COMPLETED Source: [facility] HNO ID: [id number] Author: NASH MANZANARES MD Service: ? Author Type: Physician Type: Progress Notes Filed: 04/02/2024 16:36 Note Text: ORTHOPAEDIC OFFICE NOTE CHIEF COMPLAINT: Left knee pain HISTORY OF PRESENT ILLNESS: Audra Archer is a 78 year old female who presents for Scheduled 10-week follow-up of her cemented right total hip. However today wants her left knee evaluated. She states that my hip is fantastic. I cannot walk because of my knee. She has a known history of arthritis. Global pain in the knee particular with prolonged standing and walking. Actually using her walker currently not because of her hip but because of her knee. Episodes of painful giving way. Has had injection therapy in the past but nothing recently. Notes that her knee is turning in. Reviewed nursing note and current pain scale. PAST MEDICAL HISTORY Diagnosis Date Angina pectoris (HCC) Depression GERD (gastroesophageal reflux disease) HLD (hyperlipidemia) HTN (hypertension) Neuropathy bilateral feet Right hip pain 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 PAST SURGICAL HISTORY Procedure Laterality Date L'SCOPE CHOLECYSTECTOMY PAST SURGICAL HISTORY OF C5 and C6 fusion with titanium PAST SURGICAL HISTORY OF Right 02/06/2024 right [place] TOTAL ABDOM HYSTERECTOMY TX INTER/NY/SUBTRCHNTRIC FEMORAL FX SCREW IMPLT Right 11/07/2021 FAMILY HISTORY Problem Relation Age of Onset Diabetes Mother Heart Mother Lung Cancer Mother Social History Tobacco Use Smoking status: Former Current packs/day: 0.00 Average packs/day: 3.0 packs/day for 45.0 years (135.0 ttl pk-yrs) Types: Cigarettes Start date: 12/1961 Quit date: 12/2006 Years since quittin.2 Smokeless tobacco: Never Vaping Use Vaping status: Never Used Substance Use Topics Alcohol use: Not Currently Drug use: Never MEDICATIONS: Current Outpatient Medications Medication Sig Menthol-Zinc Oxide (CALMOSEPTINE) 0.44-20.6 % Apply to affected area two times a day as needed. acetaminophen (TYLENOL) 325 mg tablet Take 2 tablets by mouth every 6 hours as needed for pain. magnesium chloride (SLOW-MAG ORAL) Take 1-2 tablets by mouth at bedtime as needed (constipation). LOW-DOSE ASPIRIN ORAL 81 mg once daily. insulin lispro (HUMALOG U-100 INSULIN) 100 unit/mL injection Inject 5-10 Units subcutaneously three times a day before meals. Based in glucose level TOUJEO MAX U-300 SOLOSTAR 300 unit/mL (3 mL) inpn Inject 30 Units subcutaneously daily at bedtime. buprenorphine (BUTRANS) 20 mcg/hour transdermal patch 1 Patch one time a week. DEXCOM G7 SENSOR beth as directed. amLODIPine (NORVASC) 5 mg tablet Take 5 mg by mouth once daily. carvedilol (COREG) 6.25 mg tablet Take 6.25 mg by mouth two times a day with meals. citalopram hydrobromide (CELEXA) 10 mg tablet Take 10 mg by mouth once daily. isosorbide mononitrate ER (IMDUR) 30 mg 24 hr tablet Take 30 mg by mouth once daily. nitroglycerin sublingual (NITROQUICK) 0.4 mg SL tablet Dissolve 0.4 mg under the tongue every 5 minutes as needed for chest pain. omeprazole (PRILOSEC) 40 mg capsule Take 40 mg by mouth two times a day. pregabalin (LYRICA) 150 mg capsule Take 150 mg by mouth three times daily. aspirin, enteric coated (ASPIRIN, ENTERIC COATED) 81 mg EC tablet Take 1 tablet by mouth two times a day for 21 days. Once BID dosing completed in 21 days, okay to resume daily home dose No current facility-administered medications for this visit. ALLERGIES: ALLERGIES Allergen Reactions Tetanus And Diphthe* Other: See Comments dizziness Ciprofloxacin GI Upset Codeine Other: See Comments Tolerated oxycodone October 2021 Metformin Hives vomiting Neosporin [Benzalko* Rash Maltife-Jgx-Jzl Red* Other: See Comments Sulfa (Sulfonamide * Other: See Comments PHYSICAL EXAMINATION: Resp 16 Ht 5' 5 (1.65m) Wt 209 lb (94.8kg) BMI 34.78 kg/(m2). General Appearance: Well appearing, alert, in no acute distress, well-hydrated, well nourished. Skin: Skin color, texture, turgor normal, no suspicious rashes or lesions. Extremities: Rises from the chair with difficulty. Walks with an antalgic gait favoring her left side and demonstrates any significant valgus deformity of the left knee. Slight valgus on the right. In the seated position her right hip shows a well-healed incision. Excellent range of motion pain-free. Left knee shows significant tricompartmental crepitance with motion. 0 to 115 degrees range of motion. Moderate effusion but no warmth or erythema. Pseudolaxity to varus stressing correcting her valgus alignment. IMAGES: I ordered, obtained and interpreted today PA standing, lateral, skyline views of the left knee. They demonstrate advanced end-stage bkyt-qc-epyv arthritis in the lateral compartment left greater than right with valgus deformity. Significant patellofemoral changes. Impression: Advanced arthritis left knee with valgus deformity I ordered, obtained and reviewed an AP pelvis radiograph for follow-up of a right total hip arthroplasty. Compared to views of 01/19/2024 shows a BIOMET cemented right total hip in good position without loosening or complication. Impression: Stable postop follow up cemented right total hip. ASSESSMENT AND PLAN: 1. Primary osteoarthritis of left knee - ICD9: 715.16, ICD10: M17.12 (primary diagnosis) 2. Acquired valgus deformity knee, left - ICD9: 736.41, ICD10: M21.062 3. Status post total hip replacement, right - ICD9: V43.64, ICD10: Z96.641 4. Degeneration of intervertebral disc of lumbar region with discogenic back pain - ICD9: 722.52, ICD10: M51.360 Functional Plan: At this point her hip continues to do phenomenally well. She is very disabled by her knee arthritis. I discussed with her and her daughter today treatment options which would definitively involve knee replacement surgery. She does not want to consider this until sometime late in the spring. In the interim I suggested a hinged knee brace to try and correct her deformity and unload her knee. Hopefully this will increase her stability also. Recommended she continue with her physical therapy program. We did discussions injection therapy Which she has discussed with her pain management doctor and is going to schedule this in the near future. I will defer further pharmacologic treatment to her pain management team. At this point she found the brace very comfortable. We discussed its usage. I will plan on seeing her back in 6 months time. Sooner if she has any issues. 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 Nash Manzanares MD CNOV Observed: 03/30/2024 11:00 AM Status: COMPLETED Source: [facility] Office Visit (AGHWW1) AUDRA ARCHER ([id number]) 1945 F Date Time Provider Department 03/30/24 11:00 AM NASH MANZANARES [id number] During your visit today, we recorded the following information about you: Respiration Weight Height 16/minute 94.8 kg 1.651 m Nash Manzanares MD 04/02/2024 4:36 PM Signed ORTHOPAEDIC OFFICE NOTE CHIEF COMPLAINT: Left knee pain HISTORY OF PRESENT ILLNESS: Audra Archer is a 78 year old female who presents for Scheduled 10-week follow-up of her cemented right total hip. However today wants her left knee evaluated. She states that my hip is fantastic. I cannot walk because of my knee. She has a known history of arthritis. Global pain in the knee particular with prolonged standing and walking. Actually using her walker currently not because of her hip but because of her knee. Episodes of painful giving way. Has had injection therapy in the past but nothing recently. Notes that her knee is turning in. Reviewed nursing note and current pain scale. PAST MEDICAL HISTORY Diagnosis Date Angina pectoris (HCC) Depression GERD (gastroesophageal reflux disease) HLD (hyperlipidemia) HTN (hypertension) Neuropathy bilateral feet Right hip pain 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 PAST SURGICAL HISTORY Procedure Laterality Date L'SCOPE CHOLECYSTECTOMY PAST SURGICAL HISTORY OF C5 and C6 fusion with titanium PAST SURGICAL HISTORY OF Right 02/06/2024 right [place] TOTAL ABDOM HYSTERECTOMY TX INTER/NY/SUBTRCHNTRIC FEMORAL FX SCREW IMPLT Right 11/07/2021 FAMILY HISTORY Problem Relation Age of Onset Diabetes Mother Heart Mother Lung Cancer Mother Social History Tobacco Use Smoking status: Former Current packs/day: 0.00 Average packs/day: 3.0 packs/day for 45.0 years (135.0 ttl pk-yrs) Types: Cigarettes Start date: 12/1961 Quit date: 12/2006 Years since quittin.2 Smokeless tobacco: Never Vaping Use Vaping status: Never Used Substance Use Topics Alcohol use: Not Currently Drug use: Never MEDICATIONS: Current Outpatient Medications Medication Sig Menthol-Zinc Oxide (CALMOSEPTINE) 0.44-20.6 % Apply to affected area two times a day as needed. acetaminophen (TYLENOL) 325 mg tablet Take 2 tablets by mouth every 6 hours as needed for pain. magnesium chloride (SLOW-MAG ORAL) Take 1-2 tablets by mouth at bedtime as needed (constipation). LOW-DOSE ASPIRIN ORAL 81 mg once daily. insulin lispro (HUMALOG U-100 INSULIN) 100 unit/mL injection Inject 5-10 Units subcutaneously three times a day before meals. Based in glucose level TOUJEO MAX U-300 SOLOSTAR 300 unit/mL (3 mL) inpn Inject 30 Units subcutaneously daily at bedtime. buprenorphine (BUTRANS) 20 mcg/hour transdermal patch 1 Patch one time a week. DEXCOM G7 SENSOR beth as directed. amLODIPine (NORVASC) 5 mg tablet Take 5 mg by mouth once daily. carvedilol (COREG) 6.25 mg tablet Take 6.25 mg by mouth two times a day with meals. citalopram hydrobromide (CELEXA) 10 mg tablet Take 10 mg by mouth once daily. isosorbide mononitrate ER (IMDUR) 30 mg 24 hr tablet Take 30 mg by mouth once daily. nitroglycerin sublingual (NITROQUICK) 0.4 mg SL tablet Dissolve 0.4 mg under the tongue every 5 minutes as needed for chest pain. omeprazole (PRILOSEC) 40 mg capsule Take 40 mg by mouth two times a day. pregabalin (LYRICA) 150 mg capsule Take 150 mg by mouth three times daily. aspirin, enteric coated (ASPIRIN, ENTERIC COATED) 81 mg EC tablet Take 1 tablet by mouth two times a day for 21 days. Once BID dosing completed in 21 days, okay to resume daily home dose No current facility-administered medications for this visit. ALLERGIES: ALLERGIES Allergen Reactions Tetanus And Diphthe* Other: See Comments dizziness Ciprofloxacin GI Upset Codeine Other: See Comments Tolerated oxycodone October 2021 Metformin Hives vomiting Neosporin [Benzalko* Rash Urgbwov-Ryr-Nvt Red* Other: See Comments Sulfa (Sulfonamide * Other: See Comments PHYSICAL EXAMINATION: Resp 16 Ht 5' 5 (1.65m) Wt 209 lb (94.8kg) BMI 34.78 kg/(m2). General Appearance: Well appearing, alert, in no acute distress, well-hydrated, well nourished. Skin: Skin color, texture, turgor normal, no suspicious rashes or lesions. Extremities: Rises from the chair with difficulty. Walks with an antalgic gait favoring her left side and demonstrates any significant valgus deformity of the left knee. Slight valgus on the right. In the seated position her right hip shows a well-healed incision. Excellent range of motion pain-free. Left knee shows significant tricompartmental crepitance with motion. 0 to 115 degrees range of motion. Moderate effusion but no warmth or erythema. Pseudolaxity to varus stressing correcting her valgus alignment. IMAGES: I ordered, obtained and interpreted today PA standing, lateral, skyline views of the left knee. They demonstrate advanced end-stage eepy-fp-kuhw arthritis in the lateral compartment left greater than right with valgus deformity. Significant patellofemoral changes. Impression: Advanced arthritis left knee with valgus deformity I ordered, obtained and reviewed an AP pelvis radiograph for follow-up of a right total hip arthroplasty. Compared to views of 01/19/2024 shows a BIOMET cemented right total hip in good position without loosening or complication. Impression: Stable postop follow up cemented right total hip. ASSESSMENT AND PLAN: 1. Primary osteoarthritis of left knee - ICD9: 715.16, ICD10: M17.12 (primary diagnosis) 2. Acquired valgus deformity knee, left - ICD9: 736.41, ICD10: M21.062 3. Status post total hip replacement, right - ICD9: V43.64, ICD10: Z96.641 4. Degeneration of intervertebral disc of lumbar region with discogenic back pain - ICD9: 722.52, ICD10: M51.360 Functional Plan: At this point her hip continues to do phenomenally well. She is very disabled by her knee arthritis. I discussed with her and her daughter today treatment options which would definitively involve knee replacement surgery. She does not want to consider this until sometime late in the spring. In the interim I suggested a hinged knee brace to try and correct her deformity and unload her knee. Hopefully this will increase her stability also. Recommended she continue with her physical therapy program. We did discussions injection therapy Which she has discussed with her pain management doctor and is going to schedule this in the near future. I will defer further pharmacologic treatment to her pain management team. At this point she found the brace very comfortable. We discussed its usage. I will plan on seeing her back in 6 months time. Sooner if she has any issues. 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 Nash Manzanares MD Allergies As of Date: 03/30/2024 Noted Allergy Reaction TETANUS AND DIPHTHER. TOX (PF) 01/13/2024 14 - Other: See Comments Comments: dizziness CIPROFLOXACIN 11/06/2021 8 - GI Upset CODEINE 11/05/2021 14 - Other: See Comments Comments: Tolerated oxycodone October 2021 METFORMIN 11/16/2021 4 - Hives Comments: vomiting NEOSPORIN (BENZALKONIUM CHLORIDE) 11/06/2021 2 - Rash [id number] REDUCTASE INHIBIT*11/05/2021 14 - Other: See Comments SULFA (SULFONAMIDE ANTIBIOTICS) 11/05/2021 14 - Other: See Comments Date Reviewed: 03/30/2024 Reviewed by: Samuel Syed Tech - Fully Assessed Reason for Visit: Follow Up [171] Post Op [174] Primary Visit Diagnosis:Primary osteoarthritis of left knee [M17.12] Other Visit Diagnoses:Acquired valgus deformity knee, left [M21.062] Status post total hip replacement, right [Z96.641] Degeneration of intervertebral disc of lumbar region with discogenic back pain [M51.360] Order(s):XR PELVIS 1V AP [[id number]] Order #: [id number] XR KNEE POST OP 3V AP/LAT/MERCHANT LEFT [[id number]] Order #: [id number] HINGED KNEE BRACE [[id number]] Order #: [id number] Prescriptions as of 04/05/2024 - Menthol-Zinc Oxide (CALMOSEPTINE) 0.44-20.6 % Apply to affected area two times a day as needed. - aspirin, enteric coated (ASPIRIN, ENTERIC COATED) 81 mg EC tablet Take 1 tablet by mouth two times a day for 21 days. Once BID dosing completed in 21 days, okay to resume daily home dose - acetaminophen (TYLENOL) 325 mg tablet Take 2 tablets by mouth every 6 hours as needed for pain. - magnesium chloride (SLOW-MAG ORAL) Take 1-2 tablets by mouth at bedtime as needed (constipation). - LOW-DOSE ASPIRIN ORAL 81 mg once daily. - insulin lispro (HUMALOG U-100 INSULIN) 100 unit/mL injection Inject 5-10 Units subcutaneously three times a day before meals. Based in glucose level - TOUJEO MAX U-300 SOLOSTAR 300 unit/mL (3 mL) inpn Inject 30 Units subcutaneously daily at bedtime. - buprenorphine (BUTRANS) 20 mcg/hour transdermal patch 1 Patch one time a week. - DEXCOM G7 SENSOR beth as directed. - amLODIPine (NORVASC) 5 mg tablet Take 5 mg by mouth once daily. - carvedilol (COREG) 6.25 mg tablet Take 6.25 mg by mouth two times a day with meals. - citalopram hydrobromide (CELEXA) 10 mg tablet Take 10 mg by mouth once daily. - isosorbide mononitrate ER (IMDUR) 30 mg 24 hr tablet Take 30 mg by mouth once daily. - nitroglycerin sublingual (NITROQUICK) 0.4 mg SL tablet Dissolve 0.4 mg under the tongue every 5 minutes as needed for chest pain. - omeprazole (PRILOSEC) 40 mg capsule Take 40 mg by mouth two times a day. - pregabalin (LYRICA) 150 mg capsule Take 150 mg by mouth three times daily. Problem List As Of Date 03/30/2024 Noted Resolved Intertrochanteric fracture of right femur, clos*11/05/2021 Obesity, Class II, BMI 35-39.9 [E66.812] 11/06/2021 Anemia, unspecified [D64.9] 12/13/2022 Stage 3b chronic kidney disease (HCC) [N18.32] 12/30/2023 Hypertension [I10] 12/30/2023 Hyperlipidemia [E78.5] 06/07/2023 Gastroesophageal reflux disease [K21.9] 12/30/2023 Diabetes mellitus (HCC) [E11.9] 12/30/2023 Depressive disorder [F32.A] 12/30/2023 Pain in right hip [M25.551] 12/22/2022 Stage 3 chronic kidney disease (HCC) [N18.30] 11/08/2022 Arteriosclerosis of coronary artery [I25.10] 12/30/2023 Class 1 obesity due to excess calories with bod*12/30/2023 PABLO (obstructive sleep apnea) [G47.33] 12/30/2023 Tobacco abuse [Z72.0] 12/30/2023 Status post total hip replacement, right [Z96.6*01/19/2024 Disposition: Return in about 25 weeks (around 09/21/2024). Follow-up and Disposition History for Encounter Date Provider Department Center 03/30/2024 [id number]-CSOUHFNASH MANZANARES*AGHWW1 [facility] Letter Text Encounter Status:Closed by NASH MANZANARES on 04/02/24 JAYESH Observed: 02/14/2024 11:15 AM Status: COMPLETED Source: [facility] Office Visit (AGPOB1) AUDRA ARCHER ([id number]) 1945 F Date Time Provider Department 02/14/24 11:15 AM NASH MANZANARES AGPOB1 During your visit today, we recorded the following information about you: Respiration Weight Height 20/minute 95 kg 1.651 m Nash Manzanares MD 02/14/2024 2:53 PM Signed X-ray Interpretation: We ordered, obtained and reviewed an AP pelvis radiograph for follow-up of a right total hip arthroplasty. Compared to views of 01/19/2024 shows a BIOMET cemented right total hip in good position without loosening or complication. Impression: Stable postop follow up cemented right total hip. Audra Archer Comes in for her 3-1/2-week follow-up of her right total hip. She has been home from rehab. Doing well. Good pain relief. Ambulating with her walker. Her wound is healing nicely. Remaining Steri-Strips were removed. She has a small area very proximally where the skin folds and if she has some maceration and local erythema but no cellulitis or tenderness. No drainage. She has symmetrical pitting edema both lower extremities which she states is chronic for her. At this point she is doing well. She is going to continue with her home exercise program. Gave her daughter some instructions to try and keep that wound with cotton ball. Will give her some prophylactic doxycycline. Asked him to call if the area of redness starts to increase or worsen. Will see her back in 4 weeks time. Sooner if there is any issues. GAV Allergies As of Date: 02/14/2024 Noted Allergy Reaction TETANUS AND DIPHTHER. TOX (PF) 01/13/2024 14 - Other: See Comments Comments: dizziness CIPROFLOXACIN 11/06/2021 8 - GI Upset CODEINE 11/05/2021 14 - Other: See Comments Comments: Tolerated oxycodone October 2021 METFORMIN 11/16/2021 4 - Hives Comments: vomiting NEOSPORIN (BENZALKONIUM CHLORIDE) 11/06/2021 2 - Rash BUOEFDV-NZX-ZFX REDUCTASE INHIBIT*11/05/2021 14 - Other: See Comments SULFA (SULFONAMIDE ANTIBIOTICS) 11/05/2021 14 - Other: See Comments Date Reviewed: 02/14/2024 Reviewed by: La Lan LPN - Fully Assessed Reason for Visit: Post Op [174] Follow Up [171] Primary Visit Diagnosis:Status post total hip replacement, right [Z96.641] Order(s):XR PELVIS 1V AP [[id number]] Order #: [id number] Menthol-Zinc Oxide (CALMOSEPTINE) 0.44-20.6 %Apply to affected area two times a day as needed.Disp: 100 gRfl: 0 doxycycline monohydrate 100 mg tabletTake 1 tablet by mouth two times a day for 7 days.Disp: 14 tabletRfl: 0 Prescriptions as of 02/14/2024 - Menthol-Zinc Oxide (CALMOSEPTINE) 0.44-20.6 % Apply to affected area two times a day as needed. - doxycycline monohydrate 100 mg tablet Take 1 tablet by mouth two times a day for 7 days. - aspirin, enteric coated (ASPIRIN, ENTERIC COATED) 81 mg EC tablet Take 1 tablet by mouth two times a day for 21 days. Once BID dosing completed in 21 days, okay to resume daily home dose - acetaminophen (TYLENOL) 325 mg tablet Take 2 tablets by mouth every 6 hours as needed for pain. - magnesium chloride (SLOW-MAG ORAL) Take 1-2 tablets by mouth at bedtime as needed (constipation). - LOW-DOSE ASPIRIN ORAL 81 mg once daily. - insulin lispro (HUMALOG U-100 INSULIN) 100 unit/mL injection Inject 5-10 Units subcutaneously three times a day before meals. Based in glucose level - TOUJEO MAX U-300 SOLOSTAR 300 unit/mL (3 mL) inpn Inject 30 Units subcutaneously daily at bedtime. - buprenorphine (BUTRANS) 20 mcg/hour transdermal patch 1 Patch one time a week. - JobpartnersCOM G7 SENSOR beth as directed. - amLODIPine (NORVASC) 5 mg tablet Take 5 mg by mouth once daily. - carvedilol (COREG) 6.25 mg tablet Take 6.25 mg by mouth two times a day with meals. - citalopram hydrobromide (CELEXA) 10 mg tablet Take 10 mg by mouth once daily. - isosorbide mononitrate ER (IMDUR) 30 mg 24 hr tablet Take 30 mg by mouth once daily. - nitroglycerin sublingual (NITROQUICK) 0.4 mg SL tablet Dissolve 0.4 mg under the tongue every 5 minutes as needed for chest pain. - omeprazole (PRILOSEC) 40 mg capsule Take 40 mg by mouth two times a day. - pregabalin (LYRICA) 150 mg capsule Take 150 mg by mouth three times daily. Problem List As Of Date 02/14/2024 Noted Resolved Intertrochanteric fracture of right femur, clos*11/05/2021 Obesity, Class II, BMI 35-39.9 [E66.9] 11/06/2021 Anemia, unspecified [D64.9] 12/13/2022 Stage 3b chronic kidney disease (HCC) [N18.32] 12/30/2023 Hypertension [I10] 12/30/2023 Hyperlipidemia [E78.5] 06/07/2023 Gastroesophageal reflux disease [K21.9] 12/30/2023 Diabetes mellitus (HCC) [E11.9] 12/30/2023 Depressive disorder [F32.A] 12/30/2023 Pain in right hip [M25.551] 12/22/2022 Stage 3 chronic kidney disease (HCC) [N18.30] 11/08/2022 Arteriosclerosis of coronary artery [I25.10] 12/30/2023 Class 1 obesity due to excess calories with bod*12/30/2023 PABLO (obstructive sleep apnea) [G47.33] 12/30/2023 Tobacco abuse [Z72.0] 12/30/2023 Status post total hip replacement, right [Z96.6*01/19/2024 Prescriptions ordered this encounter Disp Refills Start End A+D OINT. / LIDOCAINE 5% OINT. / MEN* 100 g 0 02/14/2024 02/14/2024 Class: Print RX Cmt: Compound Medication Route: TOPICAL Sig: Apply to affected area two times a day as needed. Disc: Changing Therapy/Dosage Form MENTHOL 0.44 %-ZINC OXIDE 20.6 % TOP* 100 g 0 02/14/2024 Route: TOPICAL Sig: Apply to affected area two times a day as needed. DOXYCYCLINE MONOHYDRATE 100 MG TABLET 14 t* 0 02/14/2024 02/21/2024 Route: ORAL Sig: Take 1 tablet by mouth two times a day for 7 days. Medications Discontinued During This Encounter Prescriptions - a+d oint. / lidocaine 5% oint. / menthol 0.44%-zinc oxide 20.6% oint. / zinc oxide 40% paste 4:3:4:4 ointment (CPD) (Discontinued) Apply to affected area two times a day as needed. Disposition: Return in 31 days (on 03/16/2024). Follow-up and Disposition History for Encounter Date Provider Department Center 02/14/2024 [id number]-DNKHEANASH MANZANARES AL*AGPOB1 [facility] Encounter Status:Closed by NASH MANZANARES on 02/14/24 PROGRESS Observed: 02/14/2024 10:56 AM Status: COMPLETED Source: [facility] HNO ID: [id number] Author: NASH MANZANARES MD Service: ? Author Type: Physician Type: Progress Notes Filed: 02/14/2024 14:53 Note Text: X-ray Interpretation: We ordered, obtained and reviewed an AP pelvis radiograph for follow-up of a right total hip arthroplasty. Compared to views of 01/19/2024 shows a BIOMET cemented right total hip in good position without loosening or complication. Impression: Stable postop follow up cemented right total hip. Audra Archer Comes in for her 3-1/2-week follow-up of her right total hip. She has been home from rehab. Doing well. Good pain relief. Ambulating with her walker. Her wound is healing nicely. Remaining Steri-Strips were removed. She has a small area very proximally where the skin folds and if she has some maceration and local erythema but no cellulitis or tenderness. No drainage. She has symmetrical pitting edema both lower extremities which she states is chronic for her. At this point she is doing well. She is going to continue with her home exercise program. Gave her daughter some instructions to try and keep that wound with cotton ball. Will give her some prophylactic doxycycline. Asked him to call if the area of redness starts to increase or worsen. Will see her back in 4 weeks time. Sooner if there is any issues. TEDDY DUNN Observed: 01/31/2024 12:00 AM Status: COMPLETED Source: [facility] Telephone ([id number]) AUDRA ARCHER ([id number]) 1945 F Date Time Provider Department 01/31/24 MABLE PORTILLO [id number] During your visit today, we recorded the following information about you: Allergies As of Date: 01/31/2024 Noted Allergy Reaction TETANUS AND DIPHTHER. TOX (PF) 01/13/2024 14 - Other: See Comments Comments: dizziness CIPROFLOXACIN 11/06/2021 8 - GI Upset CODEINE 11/05/2021 14 - Other: See Comments Comments: Tolerated oxycodone October 2021 METFORMIN 11/16/2021 4 - Hives Comments: vomiting NEOSPORIN (BENZALKONIUM CHLORIDE) 11/06/2021 2 - Rash [id number] REDUCTASE INHIBIT*11/05/2021 14 - Other: See Comments SULFA (SULFONAMIDE ANTIBIOTICS) 11/05/2021 14 - Other: See Comments Date Reviewed: 01/22/2024 Reviewed by: Justice Gray, BILLY - Fully Assessed Reason for Visit: Post Op Call [[id number]] Prescriptions as of 01/31/2024 - aspirin, enteric coated (ASPIRIN, ENTERIC COATED) 81 mg EC tablet Take 1 tablet by mouth two times a day for 21 days. Once BID dosing completed in 21 days, okay to resume daily home dose - acetaminophen (TYLENOL) 325 mg tablet Take 2 tablets by mouth every 6 hours as needed for pain. - senna (SENOKOT) 8.6 mg tab Take 1 tablet by mouth two times a day for 10 days. Hold for loose stool - magnesium chloride (SLOW-MAG ORAL) Take 1-2 tablets by mouth at bedtime as needed (constipation). - LOW-DOSE ASPIRIN ORAL 81 mg once daily. - insulin lispro (HUMALOG U-100 INSULIN) 100 unit/mL injection Inject 5-10 Units subcutaneously three times a day before meals. Based in glucose level - TOUJEO MAX U-300 SOLOSTAR 300 unit/mL (3 mL) inpn Inject 30 Units subcutaneously daily at bedtime. - buprenorphine (BUTRANS) 20 mcg/hour transdermal patch 1 Patch one time a week. - DEXCOM G7 SENSOR beth as directed. - amLODIPine (NORVASC) 5 mg tablet Take 5 mg by mouth once daily. - carvedilol (COREG) 6.25 mg tablet Take 6.25 mg by mouth two times a day with meals. - citalopram hydrobromide (CELEXA) 10 mg tablet Take 10 mg by mouth once daily. - isosorbide mononitrate ER (IMDUR) 30 mg 24 hr tablet Take 30 mg by mouth once daily. - nitroglycerin sublingual (NITROQUICK) 0.4 mg SL tablet Dissolve 0.4 mg under the tongue every 5 minutes as needed for chest pain. - omeprazole (PRILOSEC) 40 mg capsule Take 40 mg by mouth two times a day. - pregabalin (LYRICA) 150 mg capsule Take 150 mg by mouth three times daily. Problem List As Of Date 01/31/2024 Noted Resolved Intertrochanteric fracture of right femur, clos*11/05/2021 Obesity, Class II, BMI 35-39.9 [E66.9] 11/06/2021 Anemia, unspecified [D64.9] 12/13/2022 Stage 3b chronic kidney disease (HCC) [N18.32] 12/30/2023 Hypertension [I10] 12/30/2023 Hyperlipidemia [E78.5] 06/07/2023 Gastroesophageal reflux disease [K21.9] 12/30/2023 Diabetes mellitus (HCC) [E11.9] 12/30/2023 Depressive disorder [F32.A] 12/30/2023 Pain in right hip [M25.551] 12/22/2022 Stage 3 chronic kidney disease (HCC) [N18.30] 11/08/2022 Arteriosclerosis of coronary artery [I25.10] 12/30/2023 Class 1 obesity due to excess calories with bod*12/30/2023 PABLO (obstructive sleep apnea) [G47.33] 12/30/2023 Tobacco abuse [Z72.0] 12/30/2023 Status post total hip replacement, right [Z96.6*01/19/2024 Encounter Status:Closed by MABLE PORTILLO on 01/31/24 PROGRESS Observed: 01/25/2024 11:36 AM Status: COMPLETED Source: [facility] HNO ID: [id number] Author: JT GERONIMO MD Service: Hospital Medicine Author Type: Physician Type: Progress Notes Filed: 01/31/2024 22:26 Note Text: Documentation Query Please clarify the Type of CHF: Diastolic CHF This document will become part of the patient's medical record. THERAPY NT Observed: 01/25/2024 8:48 AM Status: COMPLETED Source: [facility] HNO ID: [id number] Author: DEDRICK PORTILLO PTA Service: Physical Therapy Author Type: Circle Edger Type: Therapy (PT/OT/Speech/Resp) Filed: 01/25/2024 08:52 Note Text: Attestation signed by Jeremy Broussard PT at 01/25/2024 10:10 AM I reviewed and agree with the documentation corresponding to this therapy visit. SIGNATURE: Jeremy Broussard, PT DATE: January 25, 2024 TIME: 10:10 AM Physical Therapy Treatment Summary SERVICE DATE: 01/25/2024 SERVICE TIME: 812 to 841 ROOM: [id number] PT 6 Clicks Score: 18 DISCHARGE RECOMMENDATIONS Subacute/SNF Recommended Discharge Disposition Comments: Patient functioning below baseline, recommend SNF at discharge Recommended Discharge Disposition Due to: Functional deficits requiring ongoing therapy service prior to discharge home., Functional status decline, Requires multiple therapy disciplines ASSESSMENT Response to Therapy Interventions: Good Participation in Activities Patient continues to require increased levels of assist with all mobility tasks. Patient continues to be below baseline functioning at this time. Patient continues to be recommended for subacute/SNF to improve strength, balance, endurance, increased ambulation distances with normalize gait pattern, and increased independence with functional task performance/mobility to prior level of function. Additional personal present during this visit: Laurita Guevara PRECAUTIONS Fall Risk, Hip Precautions - Posterior Dislocation, Weight Bearing Restrictions Right Lower Extremity Weight Bearing Status: WBAT CURRENT HOSPITAL COURSE 78 y.o female s/p R [place] 01/18. WBAT. Hgb 10.7 Relevant Past Medical History: DM2, HTN, neuropathy HOME LIVING Patient Lives With: Family Assistance Available: 24-Hour Entry To Home: Stairs, With Rail Number Of Stairs Into Home: 3 Number Of Stairs To Bed/Bath: 0 Tub/Shower Type: tub shower Laundry: family can complete Equipment Owned: Walker- Wheeled, Cane, Shower Chair, Grab Bars- Shower, Finish Mender PRIOR FUNCTIONAL LEVEL Required Assistance Assistance Required With: Shopping, Transportation Patient reports ambulating with 2 canes, recently started using walker, independent with ADLs, however difficulty getting in/out of tub, family assists with IADLs SUBJECTIVE pleasant and agreeable to PT session THERAPY DIAGNOSIS Reduced mobility-other, Muscle Weakness (generalized), Unsteadiness on feet, General symptoms and signs-other TREATMENT INTERVENTIONS Therapeutic Exercise (90038), Therapeutic Activity (80890), Gait Training (92769) Therapeutic Exercise (35209) Treatment Minutes: 13 $ Therapeutic Exercise (21902) Billed Units: 1 unit Patient completed right total hip arthroplasty protocol (ankle pump, quad set, gluteal set, heel slide, hip abd/add to neutral, short arc quad, long arc quad, hip adductor squeeze) x 15 reps with minimal amount of assist. Educated patient on right posterior hip precautions. Patient recalls 1/3 hip precautions--patient encouraged to continue to review precautions written on white board in room. Patient set up with ice to surgical hip and elevated lower extremity as needed. Therapeutic Activity (78129) Treatment Minutes: 4 $ Therapeutic Activity (98275) Billed Units: 0 units patient educated on hip precaution, assisted with proper movements/techniques with bed mobility, scooting, and transfers from various surfaces/heights. Gait Training (68406) Treatment Minutes: 12 $ Gait Training (67708) Billed Units: 1 unit cuing for proper posture, heel strike, step length, walker management, proper technique with negotiating stairs. Timed Code Treatment (minutes): 29 Skilled Treatment Time (minutes): 29 TRAINING AND EDUCATION PROVIDED Assistive Device Use, Bed Mobility, Exercise Program, Gait Pattern, Reduction of Deviations, Positioning, Precautions/Restrictions, Transfers, Stair Navigation THERAPEUTIC SKILLS USED Cues for Sequencing/Proper Technique for Activity, Cuing Tactile, Cuing Verbal, Cuing Visual, Facilitation of Joint Range of Motion, Movement Facilitation, Physical Assist, Postural Alignment Correction FUNCTIONAL STATUS mobility performed during session in bold, other mobility completed during prior session and may no longer be correct or appropriate to complete. Bed Mobility Supine To Sit: Minimal Assistance HOB at 30 degrees, assist with LEs cuing for proper movements/maintaining hip precautions Sit to Supine: Minimal Assistance assist with LEs as needed Scooting: Stand By Assistance Transfers Sit To Stand: Minimal Assistance, Contact Guard Assistance cuing for proper UE support, sliding RLE out, powering up with LEs Stand To Sit: Minimal Assistance, Contact Guard Assistance cuing to slide RLE out, proper UE support, eccentric control Bed to Chair Gait Contact Guard Assistance cuing for proper posture, walker management, step length, heel strike, reciprocal stepping Gait Device: Wheeled Walker General Deviations/Observations: Antalgic gait, Elvia decreased, Flexed trunk posture, Step length decreased Gait Distance (feet): 45', 60' Stairs Minimal Assistance, Additional Information Stairs Device: Rail (bilateral rails) Number of Stairs: 4 cuing for step to pattern, leading up with non surgical LE, down with surgical, proper hand placement BALANCE Static Sitting Balance: Good Dynamic Sitting Balance: Good Static Standing Balance: Fair Dynamic Standing Balance: Fair GOALS Patient will demonstrate progress to optimize functional mobility, maximize activity tolerance and endurance to maximize function upon discharge. Able to Perform HEP with: Verbal Cues Only Transfer Supine to/from Sit with: Contact Guard Assistance Transfer Sit to/from Stand with: Contact Guard Assistance Ambulate with: Contact Guard Assistance Distance: 50' x 2 Device: Wheeled Walker Ambulate Up and Down Curb Step with: Contact Guard Assistance Device: Wheeled Walker Ambulate Up and Down Steps with: Contact Guard Assistance Number of Steps: 4 Device: Rail, Cane Transfer: stepping bed to/from chair with CGA using wheeled walker Rehab Potential: Good Progress Toward Goals: Progressing as expected PLAN PT Frequency: Twice Daily Treatment Interventions: Education, Energy Conservation Training, Joint Mobility, Strengthening, Functional Mobility Training Plan for Next Visit: Bed Mobility, Chair Transfer Training, Gait Training, Fall Prevention, Exercise Instruction/Handout, Stair Training, Standing Balance, Standing Tolerance, Sit to Stand Transfers SIGNATURE: Dedrick Portillo PTA PATIENT NAME: Audra Archer DATE: January 25, 2024 TIME: 8:48 AM CASE MANAGEM Observed: 01/25/2024 8:42 AM Status: COMPLETED Source: [facility] HNO ID: [id number] Author: DEANNA EASTMAN RN Service: Care Management Author Type: Registered Nurse Type: Care Mgt Progress Note Filed: 01/25/2024 08:43 Note Text: CARE MANAGEMENT DISCHARGE NOTE SERVICE DATE: January 25, 2024 SERVICE TIME: 8:43 AM Admission Date: 01/19/2024 LOS: 6 days Discharge Arrangement Discharge Arrangement: Longterm Facility Was an expedited discharge program used?: No Services Arranged Medical Services: Other: See Comment Caregiver Assessment Caregiver is ready, willing and able to meet the patient's needs as recommended by the inter-professional team: Yes Name of Caregiver: [facility] Transportation Arrangements Transportation Arrangements: Ambulance Transportation Agency and Phone #:: [facility] ( [facility] ) [phone] / [phone] Date of Trip: 01/25/24 Time of Trip: 1000 Type of Service: BLS Non-emergency Is Patient Medicaid Pending?: No Was transportation financial coverage discussed with family?: 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 Auth approved, no 7000 needed, transport packet next to chart and RN to call report. SIGNATURE: Deanna Eastman RN PATIENT NAME: Audra Archer DATE: January 25, 2024 TIME: 8:42 AM CONTACT #: [id number] PROGRESS Observed: 01/25/2024 7:45 AM Status: COMPLETED Source: [facility] HNO ID: [id number] Author: JEREMY MCNAIR MD Service: Orthopaedic Surgery Author Type: Resident Type: Progress Notes Filed: 01/25/2024 07:58 Note Text: ORTHOPAEDIC SURGERY DAILY PROGRESS NOTE Patient Name: Audra Archer Date of Evaluation: 01/25/2024 Admission Date: 01/19/2024 Time of Evaluation: 7:45 AM ASSESSMENT: 78 year old female POD # 6 s/p R [place] PLAN: - Management per orthopaedics - Pain control - Regular diet, advance as tolerated - PT/OT: Weight bearing as tolerated right lower extremity - DVT: SCDs, Aspirin 81mg BID x 21 days - Post-operative antibiotics: Ancef 2g Q8H x 2 doses - Maintain Mepilex dressing x 7 days - Hgb 11.6 today: stable - Post operative imaging: AP pelvis reviewed - Disposition: PT/OT recommending SNF. Transportation set up for 10am today. Discharge today INTERVAL HPI: No acute events overnight recorded in chart. Pt currently complains of some pain in right hip which is well controlled with pain medications. She has some left hip pain, but right hip (surgical side) feels much better than pre-op. The patient denies chest pain, SOB, and new numbness/tingling. OBJECTIVE: BP 142/55 Pulse 68 Temp 36.6 ?C (97.8 ?F) (Oral) Resp 20 Ht 165.1 cm (5' 5) Wt 95.7 kg (211 lb) SpO2 97% BMI 35.11 kg/m? Intake/Output Summary (Last 24 hours) No intake/output data recorded. Exam: General: Pt is alert, resting in bed, no acute distress, cooperative throughout the exam and interview, answers questions appropriately Extremities: Right Lower Extremity: Medial malleoli close to symmetric bilaterally, no obvious shortening of right lower extremity. Dressing clean, dry, and intact. Surgical site no drainage and Mepilex intact. SILT S/S/SP/DP/T Motor intact DF/PF/EHL DP pulse palpable, foot warm, BCR toes Tolerates passive stretch of digits. Labs: BMP: Sodium 137 01/24/2024 Potassium 4.2 01/24/2024 Chloride 102 01/24/2024 CO2 27 01/24/2024 BUN 15 01/24/2024 Creatinine 0.84 01/24/2024 Glucose 118 01/24/2024 CBC: WBC 8.10 01/24/2024 Hemoglobin 11.6 01/24/2024 Hematocrit 35.7 01/24/2024 Platelet Count 187 01/24/2024 COAGS: INR 1.0 11/06/2021 SED RATE/CRP: No results found for this basename: wsr:*,crp:* Imaging: No new orthopaedic imaging to review Assessment Active Hospital Problems Diagnosis Date Noted Status post total hip replacement, right 01/19/2024 Hospital Course/Operations/Procedures: 01/19/2024 Procedure(s): ARTHROPLASTY TOTAL HIP CONVERSION AFTER PREVIOUS HIP SURG INPATIENT ATTENDING: Nash Krishnamurthy MD, Urgent High-Risk Geriatric Patient Vulnerabilities: Delirium Risk, Impaired Functional Status, and Impaired Mobility Diet: DIET CARBOHYDRATE CONTROLLED Recommendations: Cognition: No Cognitive Impairment bCAM Score (Calc): Negative Delirium Screen Geriatric Consult (Age over 85 or impaired cognition):Consult not needed Palliative Care/Hospice: Consult not required Rehab/Therapy: PT/OT Recommendations: PT: Recommended Discharge Disposition: Subacute/SNF OT: Recommended Discharge Disposition: Subacute/SNF Swallow: Swallow Screening Result - Step 2: PASSED Swallow Screen - Patient Able To Swallow 3 Ounce Cup of Water Without Exhibiting Signs Of Aspiration Speech Recommendations: Speech: Speech Diet: Nutrition: Consult not required Nutrition Recommendations: MST: Total MST Score (Calculated): 0 Quality Consultant: Pharmacy: Consult not needed Social Work: Social Work Consulted Anticipated Discharge Disposition: Longterm Facility Longterm Facility Jeremy Mcnair MD PGY 3 Orthopaedic Surgery Resident Pager #: [phone] 01/25/2024 7:45 AM Please page [phone] from 5p-6a and on weekends for any issues. CNDS Observed: 01/25/2024 6:51 AM Status: COMPLETED Source: [facility] HNO ID: [id number] Author: NASH MANZANARES MD Service: Orthopaedic Surgery Author Type: Nurse Practitioner Type: Discharge Summary Filed: 01/25/2024 11:48 Note Text: Attestation signed by Nash Manzanares MD at 01/25/2024 11:48 AM Signature: Nash Manzanares MD Service Date: 01/25/2024 Service Time: 11:48 AM ORTHOPEDIC SURGERY DISCHARGE SUMMARY ADMISSION DATE: 01/19/2024 DISCHARGE DATE: 01/25/2024 Attending Physician: Nash Manzanares MD Admitting Diagnosis: OA right hip Discharge Diagnosis: Same as admitting Additional Diagnoses: ACTIVE PROBLEM LIST Intertrochanteric Fracture of Right Femur, Closed, Initial Encounter ([facility]) Obesity, Class II, Bmi 35-39.9 Anemia, Unspecified Stage 3b Chronic Kidney Disease (Hcc) Hypertension Hyperlipidemia Gastroesophageal Reflux Disease Diabetes Mellitus (Hcc) Depressive Disorder Pain in Right Hip Stage 3 Chronic Kidney Disease ([facility]) Arteriosclerosis of Coronary Artery Class 1 Obesity Due to Excess Calories With Body Mass Index (Bmi) of 34.0 to 34.9 in Adult Pablo (Obstructive Sleep Apnea) Tobacco Abuse Status Post Total Hip Replacement, Right Surgeries During Hospitalization: Procedure(s) (LRB): ARTHROPLASTY TOTAL HIP CONVERSION AFTER PREVIOUS HIP SURG (Right) Consultations: Physical Therapy Case Management Internal Medicine Occupational Therapy Hospital Course: The patient is a 78 year old female who has been followed by Nash Krishnamurthy MD, MD. It was determined she would benefit from surgery. The procedure, its risks, benefits, and potential complications were discussed in detail with the patient or POA prior to surgery. Understanding of all topics was conveyed by the patient or POA, and consent was given for surgery. The patient was electively admitted to [facility] on 01/19/2024. Surgery was scheduled and on 01/19/2024 she underwent a Procedure(s) (LRB): ARTHROPLASTY TOTAL HIP CONVERSION AFTER PREVIOUS HIP SURG (Right). The procedure was tolerated well and she was sent to the post operative recovery room in stable condition, where she also did well. She was subsequently sent to her hospital room for postoperative management. Once on the floor her postoperative course was unremarkable and she did well. Her diet was advanced which she tolerated. Her pain was well controlled. She worked with Physical and Occupational Therapy who recommended she be discharged to SNF. She remained afebrile with stable vital signs throughout her stay. She was stable for discharge on POD#6. Complete and comprehensive discharge instructions were provided to the patient as well as necessary prescriptions. The patient had no further questions and was advised to call with any questions, concerns, or problems. Patient was hemodynamically stable postoperatively. Relevant labs included: Hemoglobin (g/dL) Date Value 01/24/2024 11.6 01/22/2024 10.7 (L) 01/20/2024 11.2 (L) Hematocrit (%) Date Value 01/24/2024 35.7 (L) 01/22/2024 32.8 (L) 01/20/2024 34.7 (L) Discharge Antibiotics: None Prior to surgery the patient was treated with antibiotics and continued with antibiotics 24 hours postoperatively DVT Prophylaxis: Sequential Compression Devices and Aspirin to reduce risk of bleeding Complications: Internal medicine was consulted for post op medical management. Surgical Site Care: Dressing removed on 01/25/2024. Okay to shower and wash with soap and water. No creams, lotions, ointments or peroxide. Leave open to air. Weight Bearing: WBAT RLE. Maintain posterior hip precautions Diet: Carb controlled diet Patient Condition @ Discharge: Stable BP (!) 108/48 Pulse 65 Temp 36.6 ?C (97.9 ?F) (Oral) Resp 18 Ht 165.1 cm (5' 5) Wt 95.7 kg (211 lb) SpO2 92% BMI 35.11 kg/m? Discharge Disposition: Longterm Facility The patient was instructed to follow-up in Future Appointments Date Time Provider Department Center 02/17/2024 9:45 AM Nash Manzanares MD [id number] Highest Readmission Risk Score: 16 The 30 day readmissions risk score is derived from an internally validated risk model which evaluates patient level characteristics, utilization history, medication orders and lab results up until the day of discharge. Patients with a score of 40 or above are considered highest risk for readmission. Specific patient level drivers will be listed at the bottom of the summary. The 30 day readmissions risk score is derived from an internally validated risk model which evaluates patient level characteristics, utilization history, medication orders and lab results up until the day of discharge. Patients with a score of 40 or above are considered highest risk for readmission. Specific patient level drivers will be listed at the bottom of the summary. Discharge Medications: Medication List START taking these medications acetaminophen 325 mg tablet Commonly known as: TYLENOL Take 2 tablets by mouth every 6 hours as needed for pain. oxyCODONE IR 5 mg immediate release tablet Commonly known as: ROXICODONE Take 0.5-1 tablets by mouth every 6 hours as needed for up to 1 day. senna 8.6 mg Tab Commonly known as: SENOKOT Take 1 tablet by mouth two times a day for 10 days. Hold for loose stool CHANGE how you take these medications * LOW-DOSE ASPIRIN ORAL What changed: Another medication with the same name was added. Make sure you understand how and when to take each. * aspirin, enteric coated 81 mg EC tablet Commonly known as: ASPIRIN, ENTERIC COATED Take 1 tablet by mouth two times a day for 21 days. Once BID dosing completed in 21 days, okay to resume daily home dose What changed: You were already taking a medication with the same name, and this prescription was added. Make sure you understand how and when to take each. * This list has 2 medication(s) that are the same as other medications prescribed for you. Read the directions carefully, and ask your doctor or other care provider to review them with you. CONTINUE taking these medications amLODIPine 5 mg tablet Commonly known as: NORVASC buprenorphine 20 mcg/hour transdermal patch Commonly known as: BUTRANS Applied 01/21/2024 carvedilol 6.25 mg tablet Commonly known as: COREG CeleXA 10 mg tablet Generic drug: citalopram hydrobromide DEXCOM G7 SENSOR Beth Generic drug: Blood-Glucose Sensor HumaLOG U-100 Insulin 100 unit/mL injection Generic drug: insulin lispro isosorbide mononitrate ER 30 mg 24 hr tablet Commonly known as: IMDUR nitroglycerin sublingual 0.4 mg SL tablet Commonly known as: NITROQUICK omeprazole 40 mg capsule Commonly known as: PriLOSEC pregabalin 150 mg capsule Commonly known as: LYRICA SLOW-MAG ORAL TOUJEO MAX U-300 SOLOSTAR 300 unit/mL (3 mL) Inpn Generic drug: insulin glargine U-300 conc Where to Get Your Medications You can get these medications from any pharmacy Bring a paper prescription for each of these medications oxyCODONE IR 5 mg immediate release tablet TIME OF CARE: Discharge Management: I personally spent greater than 30 minutes involved in the discharge management of this patient. SIGNATURE: Cindy Krause APRN.POLYSILICON PREPARATION WORKER PATIENT NAME: Audra Archer DATE: January 25, 2024 TIME: 6:52 am PAGER: [phone] THERAPY NT Observed: 01/24/2024 4:00 PM Status: COMPLETED [id number] Author: DEDRICK PORTILLO PTA Service: Physical Therapy Author Type: Circle Edger Type: Therapy (PT/OT/Speech/Resp) Filed: 01/24/2024 16:03 Note Text: Attestation signed by Jeremy Broussard PT at 01/24/2024 4:05 PM I reviewed and agree with the documentation corresponding to this therapy visit. SIGNATURE: Jeremy Broussard PT DATE: January 24, 2024 TIME: 4:05 PM Physical Therapy Treatment Summary SERVICE DATE: 01/24/2024 SERVICE TIME: 1526 to 1554 ROOM: [place] [id number] PT 6 Clicks Score: 17 DISCHARGE RECOMMENDATIONS Subacute/SNF Recommended Discharge Disposition Comments: Patient functioning below baseline, recommend SNF at discharge Recommended Discharge Disposition Due to: Functional deficits requiring ongoing therapy service prior to discharge home., Functional status decline, Requires multiple therapy disciplines ASSESSMENT Response to Therapy Interventions: Good Participation in Activities Patient with improved gait distances--continues to require minimal assist to safely mobilize at this time. Patient continues to be recommended for subacute/SNF to improve strength, balance, endurance, increased ambulation distances with normalize gait pattern, and increased independence with functional task performance/mobility to prior level of function. Additional personal present during this visit: Laurita Guevara PRECAUTIONS Fall Risk, Hip Precautions - Posterior Dislocation, Weight Bearing Restrictions Right Lower Extremity Weight Bearing Status: WBAT CURRENT HOSPITAL COURSE 78 y.o female s/p R [place] 01/18. WBAT. Hgb 10.7 Relevant Past Medical History: DM2, HTN, neuropathy HOME LIVING Patient Lives With: Family Assistance Available: 24-Hour Entry To Home: Stairs, With Rail Number Of Stairs Into Home: 3 Number Of Stairs To Bed/Bath: 0 Tub/Shower Type: tub shower Laundry: family can complete Equipment Owned: Walker- Wheeled, Cane, Shower Chair, Grab Bars- Shower, Finish Mender PRIOR FUNCTIONAL LEVEL Required Assistance Assistance Required With: Shopping, Transportation Patient reports ambulating with 2 canes, recently started using walker, independent with ADLs, however difficulty getting in/out of tub, family assists with IADLs SUBJECTIVE pleasant and agreeable to PT session THERAPY DIAGNOSIS Reduced mobility-other, Muscle Weakness (generalized), Unsteadiness on feet, General symptoms and signs-other TREATMENT INTERVENTIONS Therapeutic Exercise (42012), Therapeutic Activity (96692), Gait Training (40584) Therapeutic Exercise (72954) Treatment Minutes: 12 $ Therapeutic Exercise (64498) Billed Units: 1 unit bilateral LE strengthening and balance in standing--hip marching, hip ABD, hip extension, HS curls, heel raises x15, seated LAQs x20. Cuing for proper posture and LE movements Therapeutic Activity (76544) Treatment Minutes: 4 $ Therapeutic Activity (76127) Billed Units: 0 units patient educated on hip precautions--recall of 2/3--educated to look at white board for review. Cuing/assist with proper movements/techniques with bed mobility, scooting, transfers. Positioned for comfort at end of session. Gait Training (80526) Treatment Minutes: 12 $ Gait Training (72724) Billed Units: 1 unit cuing for proper posture, heel strike, step length, safety with turning. Timed Code Treatment (minutes): 28 Skilled Treatment Time (minutes): 28 TRAINING AND EDUCATION PROVIDED Assistive Device Use, Bed Mobility, Exercise Program, Gait Pattern, Reduction of Deviations, Positioning, Precautions/Restrictions, Transfers THERAPEUTIC SKILLS USED Cues for Sequencing/Proper Technique for Activity, Cuing Tactile, Cuing Verbal, Cuing Visual, Movement Facilitation, Physical Assist, Postural Alignment Correction FUNCTIONAL STATUS mobility performed during session in bold, other mobility completed during prior session and may no longer be correct or appropriate to complete. Bed Mobility Supine To Sit: Minimal Assistance HOB at 30 degrees, assist with LEs cuing for proper movements/maintaining hip precautions Sit to Supine: Minimal Assistance assist with LEs as needed Scooting: Stand By Assistance Transfers Sit To Stand: Minimal Assistance, Contact Guard Assistance cuing for proper UE support, sliding RLE out, powering up with LEs Stand To Sit: Minimal Assistance, Contact Guard Assistance cuing to slide RLE out, proper UE support, eccentric control Bed to Chair Gait Contact Guard Assistance, Additional Information cuing for proper posture, walker management, step length, heel strike, reciprocal stepping Gait Device: Wheeled Walker General Deviations/Observations: Antalgic gait, Elvia decreased, Flexed trunk posture, Step length decreased Gait Distance (feet): 60'x2 Stairs BALANCE Static Sitting Balance: Good Dynamic Sitting Balance: Good Static Standing Balance: Fair Dynamic Standing Balance: Fair GOALS Patient will demonstrate progress to optimize functional mobility, maximize activity tolerance and endurance to maximize function upon discharge. Able to Perform HEP with: Verbal Cues Only Transfer Supine to/from Sit with: Contact Guard Assistance Transfer Sit to/from Stand with: Contact Guard Assistance Ambulate with: Contact Guard Assistance Distance: 50' x 2 Device: Wheeled Walker Ambulate Up and Down Curb Step with: Contact Guard Assistance Device: Wheeled Walker Ambulate Up and Down Steps with: Contact Guard Assistance Number of Steps: 4 Device: Rail, Cane Transfer: stepping bed to/from chair with CGA using wheeled walker Rehab Potential: Good Progress Toward Goals: Progressing as expected PLAN PT Frequency: Twice Daily Treatment Interventions: Education, Energy Conservation Training, Joint Mobility, Strengthening, Functional Mobility Training Plan for Next Visit: Bed Mobility, Chair Transfer Training, Fall Prevention, Gait Training, Exercise Instruction/Handout, Sitting Balance, Standing Balance, Standing Tolerance SIGNATURE: Dedrick Portillo PTA PATIENT NAME: Audra Archer DATE: January 24, 2024 TIME: 4:00 PM PLAN OF CARE Observed: 01/24/2024 3:30 PM Status: COMPLETED Source: [facility] HNO ID: [id number] Author: WILLEM LINARES RPh Service: Pharmacy Author Type: Pharmacist Type: Plan of Care Filed: 01/24/2024 15:32 Note Text: DISCHARGE MEDICATION REVIEW BY PHARMACY Patient Name: Audra Archer Account #: Data Unavailable Admission Date: 01/19/2024 Date of Contact: January 24, 2024 Time of Contact: 3:31 PM Medication list was reviewed by a Pharmacist for drug interactions or drug related problems:Yes Below is a summary of pharmacist recommendations discussed with LIP: No Recommendations at this time from Discharge Medication List. Medication List START taking these medications acetaminophen 325 mg tablet Commonly known as: TYLENOL Take 2 tablets by mouth every 6 hours as needed for pain. oxyCODONE IR 5 mg immediate release tabletCommonly known as: ROXICODONE Take 0.5-1 tablets by mouth every 6 hours as needed for up to 1 day. senna 8.6 mg Tab Commonly known as: SENOKOT Take 1 tablet by mouth two times a day for 10 days. Hold for loose stool CHANGE how you take these medications * LOW-DOSE ASPIRIN ORAL What changed: Another medication with the same name was added. Make sure you understand how and when to take each. * aspirin, enteric coated 81 mg EC tablet Commonly known as: ASPIRIN, ENTERIC COATED Take 1 tablet by mouth two times a day for 21 days. Once BID dosing completed in 21 days, okay to resume daily home dose What changed: You were already taking a medication with the same name, and this prescription was added. Make sure you understand how and when to take each. * This list has 2 medication(s) that are the same as other medications prescribed for you. Read the directions carefully, and ask your doctor or other care provider to review them with you. CONTINUE taking these medications amLODIPine 5 mg tablet Commonly known as: NORVASC buprenorphine 20 mcg/hour transdermal patch Commonly known as: BUTRANS carvedilol 6.25 mg tablet Commonly known as: COREG CeleXA 10 mg tablet Generic drug: citalopram hydrobromide DEXCOM G7 SENSOR Beth Generic drug: Blood-Glucose Sensor HumaLOG U-100 Insulin 100 unit/mL injection Generic drug: insulin lispro isosorbide mononitrate ER 30 mg 24 hr tablet Commonly known as: IMDUR nitroglycerin sublingual 0.4 mg SL tablet Commonly known as: NITROQUICK omeprazole 40 mg capsule Commonly known as: PriLOSEC pregabalin 150 mg capsule Commonly known as: LYRICA SLOW-MAG ORAL TOUJEO MAX U-300 SOLOSTAR 300 unit/mL (3 mL) Inpn Generic drug: insulin glargine U-300 conc Where to Get Your Medications You can get these medications from any pharmacy Bring a paper prescription for each of these medications oxyCODONE IR 5 mg immediate release tablet CASE MANAGEM Observed: 01/24/2024 3:14 PM Status: COMPLETED Source: 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 [facility] cot transport scheduled for tomorrow morning at 10 am. Transport packet will be next to chart and RN to call report. CM will continue to follow. SIGNATURE: Deanna Eastman RN PATIENT NAME: Audra Archer DATE: January 24, 2024 TIME: 3:14 PM PAGER/CONTACT #: [phone] CASE MANAGEM Observed: 01/24/2024 1:51 PM Status: COMPLETED Source: [facility] HNO ID: [id number] Author: ?, ?, ? Service: Care Management Author Type: ? Type: Care Mgt Progress Note Filed: 01/24/2024 13:52 Note Text: [facility] PRECERT NOTE [employer] MEDICARE HMO [facility] Precert approved for dates: 01/24/2024 - 01/26/2024. For any additional questions regarding approvals, transport or care management needs, please contact the CM assigned to this patient in the Treatment Team. SIGNATURE: Allison Rosas Page DATE: January 24, 2024 TIME: 1:51 PM CASE MANAGEM Observed: 01/24/2024 10:22 AM Status: COMPLETED Source: [facility] HNO ID: [id number] Author: DEANNA EASTMAN RN Service: Care Management Author Type: Registered Nurse Type: Care Mgt Progress Note Filed: 01/24/2024 10:23 Note Text: CARE MANAGEMENT PROGRESS NOTE SERVICE DATE: 01/24/2024 SERVICE TIME: 10:23 AM LOS: 5 days IMM Follow Up Copy Given: Yes Copy given to:: Patient Method: In Person SIGNATURE: Deanna Eastman RN PATIENT NAME: Audra Archer DATE: January 24, 2024 TIME: 10:23 AM PAGER/CONTACT #: [phone] CASE MANAGEM Observed: 01/24/2024 10:22 AM Status: COMPLETED Source: [facility] HNO ID: [id number] Author: DEANNA EASTMAN RN Service: Care Management Author Type: Registered Nurse Type: Care Mgt Progress Note Filed: 01/24/2024 10:22 Note Text: CARE MANAGEMENT PROGRESS NOTE SERVICE DATE: 01/24/2024 SERVICE TIME: 10:22 AM LOS: 5 days Needs Prior to Discharge: To Be Determined;Bed Availability;Precertification;Discharge Transportation Patient accepted to [facility]. [facility] tasked to initiate auth. If auth is approved CM will arrange cot transport through [facility]. CM will continue to follow. SIGNATURE: Deanna Eastman RN PATIENT NAME: Audra Archer DATE: January 24, 2024 TIME: 10:22 AM PAGER/CONTACT #: [phone] THERAPY NT Observed: 01/24/2024 9:09 AM Status: COMPLETED Source: [facility] HNO ID: [id number] Author: DEDRICK PORTILLO PTA Service: Physical Therapy Author Type: Circle Edger Type: Therapy (PT/OT/Speech/Resp) Filed: 01/24/2024 09:12 Note Text: Attestation signed by Jeremy Broussard PT at 01/24/2024 10:01 AM I reviewed and agree with the documentation corresponding to this therapy visit. SIGNATURE: Jeremy Broussard PT DATE: January 24, 2024 TIME: 10:01 AM Physical Therapy Treatment Summary SERVICE DATE: 01/24/2024 SERVICE TIME: 828 to 902 ROOM: [id number] PT 6 Clicks Score: 16 DISCHARGE RECOMMENDATIONS Subacute/SNF Recommended Discharge Disposition Comments: Patient functioning below baseline, recommend SNF at discharge Recommended Discharge Disposition Due to: Functional deficits requiring ongoing therapy service prior to discharge home., Functional status decline, Requires multiple therapy disciplines ASSESSMENT Response to Therapy Interventions: Good Participation in Activities Patient continues to require increased levels of assist with all mobility tasks. Patient continues to be below baseline functioning at this time. Patient continues to be recommended for subacute/SNF to improve strength, balance, endurance, increased ambulation distances with normalize gait pattern, and increased independence with functional task performance/mobility to prior level of function. Additional personal present during this visit: Laurita Guevara PRECAUTIONS Fall Risk, Hip Precautions - Posterior Dislocation, Weight Bearing Restrictions Right Lower Extremity Weight Bearing Status: WBAT CURRENT HOSPITAL COURSE 78 y.o female s/p R [place] 01/18. WBAT. Hgb 10.7 Relevant Past Medical History: DM2, HTN, neuropathy HOME LIVING Patient Lives With: Family Assistance Available: 24-Hour Entry To Home: Stairs, With Rail Number Of Stairs Into Home: 3 Number Of Stairs To Bed/Bath: 0 Tub/Shower Type: tub shower Laundry: family can complete Equipment Owned: Walker- Wheeled, Cane, Shower Chair, Grab Bars- Shower, Finish Mender PRIOR FUNCTIONAL LEVEL Required Assistance Assistance Required With: Shopping, Transportation Patient reports ambulating with 2 canes, recently started using walker, independent with ADLs, however difficulty getting in/out of tub, family assists with IADLs SUBJECTIVE pleasant and agreeable to PT session THERAPY DIAGNOSIS Reduced mobility-other, Muscle Weakness (generalized), Unsteadiness on feet, General symptoms and signs-other TREATMENT INTERVENTIONS Therapeutic Exercise (87439), Therapeutic Activity (69347), Gait Training (83464) Therapeutic Exercise (26590) Treatment Minutes: 15 $ Therapeutic Exercise (17891) Billed Units: 1 unit Patient completed right hip arthroplasty protocol (ankle pump, quad set, gluteal set, heel slide, hip abd/add to neutral, short arc quad, long arc quad, hip adductor squeeze) x 15 reps with minimal amount of assist. Educated patient on right posterior hip precautions. Patient recalls 2/3 hip precautions Patient set up with ice to surgical hip and elevated lower extremity as needed. Therapeutic Activity (01420) Treatment Minutes: 7 $ Therapeutic Activity (57757) Billed Units: 0 units patient educated on hip precautions, assisted with proper movements with bed mobility, scooting, and transfers. Positioned for comfort at end of session. Gait Training (21782) Treatment Minutes: 12 $ Gait Training (70162) Billed Units: 1 unit cuing for proper posture, heel strike, step length, safety with turning. Timed Code Treatment (minutes): 34 Skilled Treatment Time (minutes): 34 TRAINING AND EDUCATION PROVIDED Assistive Device Use, Bed Mobility, Exercise Program, Gait Pattern, Reduction of Deviations, Positioning, Precautions/Restrictions, Transfers THERAPEUTIC SKILLS USED Cues for Sequencing/Proper Technique for Activity, Cuing Tactile, Cuing Verbal, Cuing Visual, Facilitation of Joint Range of Motion, Movement Facilitation, Physical Assist, Postural Alignment Correction FUNCTIONAL STATUS mobility performed during session in bold, other mobility completed during prior session and may no longer be correct or appropriate to complete. Bed Mobility Supine To Sit: Moderate Assistance HOB flat, assist with trunk and LEs via long sit pivot Sit to Supine: Minimal Assistance assist with LE and maintaining hip precautions Scooting: Stand By Assistance Transfers Sit To Stand: Minimal Assistance cuing for proper UE support, sliding RLE out, powering up with LEs Stand To Sit: Minimal Assistance, Additional Information cuing to slide RLE out, proper UE support, eccentric control Bed to Chair Gait Contact Guard Assistance, Additional Information cuing for proper posture, walker management, step length, heel strike, reciprocal stepping Gait Device: Wheeled Walker General Deviations/Observations: Antalgic gait, Elvia decreased, Flexed trunk posture, Step length decreased Gait Distance (feet): 45'x2 Stairs BALANCE Static Sitting Balance: Good Dynamic Sitting Balance: Good Static Standing Balance: Fair Dynamic Standing Balance: Fair GOALS Patient will demonstrate progress to optimize functional mobility, maximize activity tolerance and endurance to maximize function upon discharge. Able to Perform HEP with: Verbal Cues Only Transfer Supine to/from Sit with: Contact Guard Assistance Transfer Sit to/from Stand with: Contact Guard Assistance Ambulate with: Contact Guard Assistance Distance: 50' x 2 Device: Wheeled Walker Ambulate Up and Down Curb Step with: Contact Guard Assistance Device: Wheeled Walker Ambulate Up and Down Steps with: Contact Guard Assistance Number of Steps: 4 Device: Rail, Cane Transfer: stepping bed to/from chair with CGA using wheeled walker Rehab Potential: Good Progress Toward Goals: Progressing as expected PLAN PT Frequency: Twice Daily Treatment Interventions: Education, Energy Conservation Training, Joint Mobility, Strengthening, Functional Mobility Training Plan for Next Visit: Bed Mobility, Chair Transfer Training, Fall Prevention, Gait Training, Exercise Instruction/Handout, Sitting Balance, Standing Balance, Standing Tolerance SIGNATURE: Dedrick Portillo PTA PATIENT NAME: Audra Archer DATE: January 24, 2024 TIME: 9:09 AM CBC PNL BLD AUTO Collected: 01/24/2024 6:49 AM Statu s: F Source: [facility] Order Comment: Specimen Type : BLOOD SPECIMEN Ordering Facility: [facility] Address: [address] [place] [address] TYPE CODE TESTS RESULT OUT OF RANGE REFERENCE UNITS LAB 6690-2(LOINC) WBC # Bld Auto 8.10 3.70-11.00 k/uL LAB 789-8(LOINC) RBC # Bld Auto 3.81 Low 3.90-5.20 m/ uL LAB 718-7(LOINC) Hgb Bld-mCnc 11.6 11.5-15.5 g/dL LAB 4544-3(LOINC) Hct VFr Bld Auto 35.7 Low 36.0-46.0 % LAB 787-2(LOINC) MCV RBC Auto 93.7 80.0-100.0 fL LAB 785-6(LOINC) MCH RBC Qn Auto 30.4 26.0-34.0 pg LAB 786-4([facility]) MCHC RBC Auto-mCnc 32.5 30.5-36.0 g/dL LAB 03697-8([facility]) RDW RBC-Rto 13.3 11.5-15.0 % LAB 777-3([facility]) Platelet # Bld Auto 187 150-400 k/uL LAB 16487-1([facility]) PMV Bld Auto 10.7 9.0-12.7 fL LAB 771-6([facility]) nRBC # Bld Auto <0.01 <0.01 k/uL Performed By: #### 67644-4 # ### [facility] CLIA [id number] [address] [place] [address] [place] BAS METAB 2000 PNL SERPL Collected: 07/2023 6:49 AM Status: F Source: [facility] Order Comment: Specimen Type : BLOOD SPECIMEN Ordering Facility: [facility] Address: [address] [place] [address] TYPE CODE TESTS RESULT OUT OF RANGE REFERENCE UNITS LAB 2345-7([facility]) Glucose SerPl-mCnc 118 High 74-99 mg/dL Result Comment: The [place] Diabetes Association (ADA) provides guidance for cutoff values for fasting glucose and random glucose. The ADA defines fasting as no caloric intake for at least 8 hours. Fasting plasma glucose results between 100 to 125 mg/dL indicate increased risk for diabetes (prediabetes). Fasting plasma glucose results greater than or equal to 126 mg/dL meet the criteria for diagnosis of diabetes. In the absence of unequivocal hyperglycemia, results should be confirmed by repeat testing. In a patient with classic symptoms of hyperglycemia or hyperglycemic crisis, random plasma glucose results greater than or equal to 200 mg/dL meet the criteria for diagnosis of diabetes. Reference: Standards of Medical Care in Diabetes 2016, [place] Diabetes Association. Diabetes Care. 2016.39(Suppl 1). LAB 3094-0(LOINC) BUN SerPl-mCnc 15 7-21 mg/ dL LAB 2160-0(LOINC) Creat SerPl-mCnc 0.84 0.58-0.96 mg/dL LAB 2951-2(LOINC) Sodium SerPl-sCnc 137 136-144 mmol/L LAB 2823-3(LOINC) Potassium SerPl-sCnc 4.2 3.7-5.1 mmol/L LAB 2075-0(LOINC) Chloride SerPl-sCnc 102 98-107 mmol/L LAB 2028-9(LOINC) CO2 SerPl-sCnc 27 22-30 mmo l/L LAB 1863-0(LOINC) Anion Gap4 SerPl-sCnc 8 8-15 mmol/L LAB 38707-6(LOINC) Calcium SerPl-mCnc 9.2 8.5-10.2 mg/dL LAB 00746-5(LOINC) Creatinine + eGFR Pnl SerPlBld 71 >=60 mL/min/1. 73m??? Result Comment: Estimated Gl omerular Filtration Rate (eGFR) is calculated using the 202 CKD-EPI creatinine equation. This equation utilizes serum creatinine, sex, and age as parameters. The creatinine assay has traceable calibration to isotope dilution-mass spectrometry. Refer to KDIGO guidelines for clinical interpretation. In patients with unstable renal function, e.g. those with acute kidney injury, the eGFR may not accurately reflect actual GFR. Performed By: #### 97379-4 # ### [facility] CLIA [id number] [address] [place] PROGRESS Observed: 01/24/2024 6:24 AM Status: COMPLETED Source: [facility] HNO ID: [id number] Author: NASH MANZANARES MD Service: Orthopaedic Surgery Author Type: Physician Type: Progress Notes Filed: 01/24/2024 12:29 Note Text: I evaluated the patient and personally participated in the richards components. I agree with the resident's findings and plan with the following revisions and/or additions: Doing well. Awaiting rehab precert. Signature: Nash Manzanares MD Service Date: 01/24/2024 Service Time: 12:29 PM ORTHOPAEDIC SURGERY DAILY PROGRESS NOTE Patient Name: Audra Archer Date of Evaluation: 01/24/2024 Admission Date: 01/19/2024 Time of Evaluation: 6:12 AM ASSESSMENT: 78 year old female POD # 5 s/p R [place]. PLAN: - Management per orthopaedics - Pain control - Regular diet, advance as tolerated - PT/OT: Weight bearing as tolerated right lower extremity - DVT: SCDs, Aspirin 81mg BID x 21 days - Post-operative antibiotics: Ancef 2g Q8H x 2 doses - Maintain Mepilex dressing x 7 days - Post operative imaging: AP pelvis reviewed - Disposition: PT/OT recommending SNF. Referrals sent. Rehab preapproved but per care management [facility] still reviewing, will need precert INTERVAL HPI: No acute events overnight recorded in chart. Pt with no new complaints, hip pain well controlled today. The patient denies chest pain, SOB, fevers/chills. OBJECTIVE: BP 160/59 Pulse 70 Temp 36.3 ?C (97.4 ?F) (Axillary) Resp 18 Ht 165.1 cm (5' 5) Wt 95.7 kg (211 lb) SpO2 95% BMI 35.11 kg/m? Intake/Output Summary (Last 24 hours) No intake/output data recorded. Exam: General: Pt is alert, resting in bed, no acute distress, cooperative throughout the exam and interview, answers questions appropriately Extremities: Right Lower Extremity: Dressing clean, dry, and intact. Surgical site no drainage and Mepilex intact. SILT S/S/SP/DP/T Motor intact DF/PF/EHL DP pulse palpable, foot warm, BCR toes Tolerates passive stretch of digits. Labs: BMP: Sodium 137 01/20/2024 Potassium 4.7 01/20/2024 Chloride 102 01/20/2024 CO2 22 01/20/2024 BUN 17 01/20/2024 Creatinine 1.06 01/20/2024 Glucose 230 01/20/2024 CBC: WBC 9.59 01/22/2024 Hemoglobin 10.7 01/22/2024 Hematocrit 32.8 01/22/2024 Platelet Count 150 01/22/2024 COAGS: INR 1.0 11/06/2021 SED RATE/CRP: No results found for this basename: wsr:*,crp:* Imaging: No new orthopaedic imaging to review Assessment Active Hospital Problems Diagnosis Date Noted Status post total hip replacement, right 01/19/2024 Hospital Course/Operations/Procedures: 01/19/2024 Procedure(s): ARTHROPLASTY TOTAL HIP CONVERSION AFTER PREVIOUS HIP SURG INPATIENT ATTENDING: Dr. Manzanares, Nash Cole MD, Elective High-Risk Geriatric Patient Vulnerabilities: Delirium Risk, Impaired Functional Status, and Impaired Mobility Diet: DIET CARBOHYDRATE CONTROLLED Recommendations: Cognition: No Cognitive Impairment bCAM Score (Calc): Negative Delirium Screen Geriatric Consult (Age over 85 or impaired cognition):Consult not needed Palliative Care/Hospice: Consult not required Rehab/Therapy: PT/OT Recommendations: PT: Recommended Discharge Disposition: Subacute/SNF OT: Recommended Discharge Disposition: Subacute/SNF Swallow: Swallow Screening Result - Step 2: PASSED Swallow Screen - Patient Able To Swallow 3 Ounce Cup of Water Without Exhibiting Signs Of Aspiration Speech Recommendations: Speech: Speech Diet: Nutrition: Consult to Nutrition Therapy Nutrition Recommendations: MST: Total MST Score (Calculated): 0 Quality Consultant: Pharmacy: Consult not needed Social Work: Social Work Consulted Anticipated Discharge Disposition: Longterm Facility Bailey Ledesma MD PGY 2 Orthopaedic Surgery Resident Pager #: [phone] 01/24/2024 6:12 AM Please page [phone] from 5p-6a and on weekends for any issues. THERAPY NT Observed: 01/23/2024 3:56 PM Status: COMPLETED Source: [facility] HNO ID: [id number] Author: REHANA SAMUEL OTR/L Service: Occupational Therapy Author Type: Occupational Therapist Type: Therapy (PT/OT/Speech/Resp) Filed: 01/23/2024 16:00 Note Text: Occupational Therapy Treatment Summary SERVICE DATE: 01/23/2024 SERVICE TIME: 1407 to 1426 ROOM: [id number] OT 6 Clicks Score: 16 DISCHARGE RECOMMENDATIONS Subacute/SNF Recommended Discharge Disposition Due to: Functional deficits requiring ongoing therapy service prior to discharge home., ADL impairment ASSESSMENT Response to Therapy Interventions: Good Participation in Activities, Improved Tolerance for Activity, Multiple Ongoing Medical Issues Ms. Volosin was seen today for an occupational therapy treatment session. Pt with ongoing progress towards OT goals, however, continues to be functioning well below functional baseline. Able to recall 2/3 posterior hip precautions- OT reviewed 3/3 with patient. [facility] for continued skilled therapy services to assist with maximizing independence. PRECAUTIONS Fall Risk, Hip Precautions - Posterior Dislocation, Weight Bearing Restrictions Right Lower Extremity Weight Bearing Status: WBAT CURRENT HOSPITAL COURSE 78 y.o female s/p R [place] 01/18. WBAT. Hgb 10.7 Relevant Past Medical History: DM2, HTN, neuropathy HOME LIVING Patient Lives With: Family Assistance Available: 24-Hour Entry To Home: Stairs, With Rail Number Of Stairs Into Home: 3 Number Of Stairs To Bed/Bath: 0 Tub/Shower Type: tub shower Laundry: family can complete Equipment Owned: Walker- Wheeled, Cane, Shower Chair, Grab Bars- Shower, Finish Mender PRIOR FUNCTIONAL LEVEL Required Assistance Assistance Required With: Shopping, Transportation Patient reports ambulating with 2 canes, recently started using walker, independent with ADLs, however difficulty getting in/out of tub, family assists with IADLs Baseline Cognition: Oriented to self, Oriented to place, Oriented to time, Oriented to situation SUBJECTIVE Pt pleasant and agreeable to OT treatment session COGNITION Orientation Deficits: (AxOx3) Responsiveness: Awake, Alert Follows Commands: 3-step Commands THERAPY DIAGNOSIS Decreased activities of daily living (ADL), Reduced mobility-other TREATMENT INTERVENTIONS Self [facility] Management (51643) Timed Code Treatment (minutes): 19 Skilled Treatment Time (minutes): 19 Self [facility] Management (05454) Treatment Minutes: 19 $ Self [facility] Management (60748) Billed Units: 1 unit TRAINING AND EDUCATION PROVIDED Activity Adaptation/Compensatory Strategies, Assistive Device Use, Benefits of In-Hospital Mobility, Discharge Planning, Disease Specific Education, Expected Functional Level, Functional Mobility Involving ADLs, Adaptive Equipment/DME, Role of Occupational Therapy, Precautions/Restrictions, Standing Balance to Improve [place] with ADLs/Self-Care, Transfer - Sit to Stand, Grooming Tasks, Lower Extremity Bathing, Upper Extremity Bathing, Upper Extremity Dressing THERAPEUTIC SKILLS USED Activity Dosing, Cues for Sequencing/Proper Technique for Activity, Cuing Verbal, Movement Facilitation, Physical Assist, Therapeutic Use of Self, Teach-Back for Education FUNCTIONAL STATUS Activities of Daily Living Assist Level Additional Information Feeding Independent Grooming Minimal Assistance Facilitated functional transfer to and from bathroom for Adls with use of WW. Completed hair washing/combing activity in standing. Cueing for hand placement on sink side to maintain standing balance and safety. Bathing Upper Body Minimal Assistance Bathing Lower Body Moderate Assistance Dressing Upper Body Minimal Assistance Dressing Lower Body Maximal Assistance Toileting Minimal Assistance Bathroom level Mobility Assist Level Additional Information Bed Mobility Supine To Sit: Minimal Assistance Cueing for long sitting prior to bringing BLEs over to EOB. Minimal assist with guiding BLEs over EOB. Sit To Supine: Minimal Assistance Sit to Stand Minimal Assistance Stand to Sit Minimal Assistance Bed to Chair Minimal Assistance Bed To Chair Transfer Type: Stepping Bed To Chair Transfer Equipment: Wheeled Walker Toilet/Commode Shower Functional Mobility Minimal Assistance Functional Mobility Device: Wheeled Walker Facilitated functional transfer to and from bathroom for ADLs. Minimal assist for maintaining balance and walker safety. ROM STRENGTH ACTIVITY TOLERANCE Sitting Activity: bed mobility, sitting EOB, upper and lower body ADLs, grooming Sitting Activity Tolerance (in minutes): 10 Standing Activity: sit to stand transfer, functional trnasfer to bathroom and back to bed, grooming Standing Activity Tolerance (in minutes): 5 BALANCE Static Sitting Balance: Good Dynamic Sitting Balance: Fair Static Standing Balance: Fair Dynamic Standing Balance: Fair GOALS Grooming with: Stand By Assistance (sink side) Upper Body Bathing with: Supervision Upper Body Dressing with: Supervision Lower Body Bathing with: Modified Independent (via AE) Lower Body Dressing with: Modified Independent (via AE) Toilet Hygiene with: Contact Guard Assistance Chair Transfer with: Contact Guard Assistance Toilet Transfer with: Contact Guard Assistance Tub Transfer with: Minimal Assistance Car Transfer with: Minimal Assistance Demonstrate Competence with Education with: Independent (posterior hip precautions) Progress Toward Goals: Progressing as expected Rehab Potential: Good PLAN OT Frequency: 2 Times Per Week Treatment Interventions: Education, Self Care/Home Management, Functional Mobility Training, Balance Training SIGNATURE: MENDEL Miranda PATIENT NAME: Audra Archer DATE: January 23, 2024 TIME: 3:56 PM THERAPY NT Observed: 01/23/2024 10:04 AM Status: COMPLETED Source: [facility] HNO ID: [id number] Author: GINNY, SONALI, PT Service: Physical Therapy Author Type: Physical Therapist Type: Therapy (PT/OT/Speech/Resp) Filed: 01/23/2024 10:07 Note Text: Physical Therapy Treatment Summary SERVICE DATE: 01/23/2024 SERVICE TIME: 838 ROOM: [id number] PT 6 Clicks Score: 15 DISCHARGE RECOMMENDATIONS Subacute/SNF Recommended Discharge Disposition Due to: Functional deficits requiring ongoing therapy service prior to discharge home., Functional status decline, Requires multiple therapy disciplines ASSESSMENT Response to Therapy Interventions: Good Participation in Activities, Pain. Good progress, emerging CGA for gait 45' with walker, min-mod assist for bed mobility today, min assist still needed for transfers. Pt still with barriers to home-going: entry stairs and limited assist available. PRECAUTIONS Fall Risk, Hip Precautions - Posterior Dislocation, Weight Bearing Restrictions Right Lower Extremity Weight Bearing Status: WBAT CURRENT HOSPITAL COURSE 78 y.o female s/p R [place] 01/18. WBAT. Hgb 10.7 Relevant Past Medical History: DM2, HTN, neuropathy HOME LIVING Patient Lives With: Family Assistance Available: 24-Hour Entry To Home: Stairs, With Rail Number Of Stairs Into Home: 3 Number Of Stairs To Bed/Bath: 0 Tub/Shower Type: tub shower Laundry: family can complete Equipment Owned: Walker- Wheeled, Cane, Shower Chair, Grab Bars- Shower, Finish Mender PRIOR FUNCTIONAL LEVEL Required Assistance Assistance Required With: Shopping, Transportation Patient reports ambulating with 2 canes, recently started using walker, independent with ADLs, however difficulty getting in/out of tub, family assists with IADLs SUBJECTIVE feeling good today, sore buttocks bilat, agreeable to PT THERAPY DIAGNOSIS Reduced mobility-other, Muscle Weakness (generalized), Unsteadiness on feet, General symptoms and signs-other TREATMENT INTERVENTIONS Therapeutic Exercise (27828), Therapeutic Activity (74420) Timed Code Treatment (minutes): 28 Skilled Treatment Time (minutes): 28 Therapeutic Exercise (85475) Treatment Minutes: 12 $ Therapeutic Exercise (73032) Billed Units: 1 unit Patient completed R total hip arthroplasty protocol (ankle pump, quad set, gluteal set, heel slide with assist needed, hip abd/add back to neutral with assist needed, iso add, LAQs) 2 x 10 reps each L AND R. Instructed proper exercise technique; short rest breaks needed. Educated patient on posterior hip precautions. Ice applied R hip. Therapeutic Activity (28039) Treatment Minutes: 16 $ Therapeutic Activity (64171) Billed Units: 1 unit TRAINING AND EDUCATION PROVIDED Anatomy and Impact on Deficits, Assistive Device Use, Bed Mobility, Benefits of In-Hospital Mobility, Discharge Planning, Exercise Program, Expected Functional Level, Falls Prevention, Gait Pattern, Reduction of Deviations, Modalities, Positioning, Precautions/Restrictions, Role of Physical Therapy, Transfers THERAPEUTIC SKILLS USED Activity Dosing, Assessment of Tolerance Including Vitals Response to Activity, Cues for Sequencing/Proper Technique for Activity, Cuing Tactile, Cuing Verbal, Cuing Visual, Facilitation of Joint Range of Motion, Muscle Activation Facilitation, Physical Assist FUNCTIONAL STATUS Bed Mobility Supine To Sit: Minimal Assistance, Additional Information HOB inclined AND use of rail needed; cues for safe technique maintaining hip precautions, with pillow-prop between LEs Sit to Supine: Moderate Assistance, Additional Information assist for LEs, cues for safety maintaining hip precautions, pillow-prop between LEs Scooting: Stand By Assistance, Additional Information extra time needed; cues for hand AND foot placement, weight-shifting Transfers Sit To Stand: Minimal Assistance, Additional Information bed height slightly raised; cues for transfer safety, hand placement, forward weight-shift to assist rise Stand To Sit: Minimal Assistance, Additional Information cues for safety with L LE against EOB, advancing R LE, UEs for controlled descent, aiming hips further back onto bed Bed to Chair Gait Contact Guard Assistance, Additional Information cues for walker safety, upright posture/forward gaze as jameel; initially instruct for step-to pattern with increased UE use to help unweight painful R LE, able to progress slight step-through Gait Device: Wheeled Walker General Deviations/Observations: Antalgic gait, Elvia decreased, Flexed trunk posture, Step length decreased Gait Distance (feet): 45' x 2 Stairs BALANCE Static Sitting Balance: Good Dynamic Sitting Balance: Good Static Standing Balance: Fair Dynamic Standing Balance: Fair Vital Signs Pulse: 68 SpO2: 90 % O2 Therapy: Room Air GOALS Patient will demonstrate progress to optimize functional mobility, maximize activity tolerance and endurance to maximize function upon discharge. Able to Perform HEP with: Verbal Cues Only Transfer Supine to/from Sit with: Contact Guard Assistance Transfer Sit to/from Stand with: Contact Guard Assistance Ambulate with: Contact Guard Assistance Distance: 50' x 2 Device: Wheeled Walker Ambulate Up and Down Curb Step with: Contact Guard Assistance Device: Wheeled Walker Ambulate Up and Down Steps with: Contact Guard Assistance Number of Steps: 4 Device: Rail, Cane Transfer: stepping bed to/from chair with CGA using wheeled walker Rehab Potential: Good Progress Toward Goals: Progressing as expected PLAN PT Frequency: Twice Daily Treatment Interventions: Education, Energy Conservation Training, Joint Mobility, Strengthening, Functional Mobility Training SIGNATURE: Sonali Rowe PT PATIENT NAME: Audra Archer DATE: January 23, 2024 TIME: 10:04 AM CASE MANAGEM Observed: 01/23/2024 9:33 AM Status: COMPLETED Source: [facility] HNO ID: [id number] Author: NI LISA RN Service: Care Management Author Type: Registered Nurse Type: Care Mgt Progress Note Filed: 01/23/2024 09:34 Note Text: CARE MANAGEMENT PROGRESS NOTE SERVICE DATE: 01/23/2024 SERVICE TIME: 9:33 AM LOS: 4 days Needs Prior to Discharge: To Be Determined;Accepting Facility;Discharge Transportation;Precertification Chart reviewed. [facility]F is still reviewing. If they cannot accept patient will need to give additional SNF choices. Patient will need precert, a 7000, and cot transport at [place]. Will to continue to follow for transitional care planning. SIGNATURE: Ni Lisa RN PATIENT NAME: Audra Archer DATE: January 23, 2024 TIME: 9:33 AM PAGER/CONTACT #: [phone] PROGRESS Observed: 01/23/2024 6:12 AM Status: COMPLETED Source: [facility] HNO ID: [id number] Author: JEREMY MCNAIR MD Service: Orthopaedic Surgery Author Type: Resident Type: Progress Notes Filed: 01/23/2024 07:01 Note Text: ORTHOPAEDIC SURGERY DAILY PROGRESS NOTE Patient Name: Audra Archer Date of Evaluation: 01/23/2024 Admission Date: 01/19/2024 Time of Evaluation: 6:12 AM ASSESSMENT: 78 year old female POD # 4 s/p R [place]. PLAN: - Management per orthopaedics - Pain control - Regular diet, advance as tolerated - PT/OT: Weight bearing as tolerated right lower extremity - DVT: SCDs, Aspirin 81mg BID x 21 days - Post-operative antibiotics: Ancef 2g Q8H x 2 doses - Maintain Mepilex dressing x 7 days - Magnesium ordered (home med) for restless leg syndrome at bedtime. - Post operative imaging: AP pelvis reviewed - Hgb 10.7 yesterday - Disposition: PT/OT recommending SNF. Referrals sent. Rehab preapproved (no note from care management yesterday) INTERVAL HPI: No acute events overnight recorded in chart. Pt currently complains of some pain in right hip which is well controlled with pain medications. The patient denies chest pain, SOB, nausea/vomiting, fevers/chills, and new numbness/tingling. OBJECTIVE: BP 129/59 Pulse 68 Temp 36.5 ?C (97.7 ?F) (Oral) Resp 18 Ht 165.1 cm (5' 5) Wt 95.7 kg (211 lb) SpO2 92% BMI 35.11 kg/m? Intake/Output Summary (Last 24 hours) No intake/output data recorded. Exam: General: Pt is alert, resting in bed, no acute distress, cooperative throughout the exam and interview, answers questions appropriately Extremities: Right Lower Extremity: Medial malleoli close to symmetric bilaterally. No obvious shortening of right lower extremity. Dressing clean, dry, and intact. Surgical site no drainage and Mepilex intact. SILT S/S/SP/DP/T Motor intact DF/PF/EHL DP pulse palpable, foot warm, BCR toes Compartments soft, compressible. Tolerates passive stretch of digits. Labs: BMP: Sodium 137 01/20/2024 Potassium 4.7 01/20/2024 Chloride 102 01/20/2024 CO2 22 01/20/2024 BUN 17 01/20/2024 Creatinine 1.06 01/20/2024 Glucose 230 01/20/2024 CBC: WBC 9.59 01/22/2024 Hemoglobin 10.7 01/22/2024 Hematocrit 32.8 01/22/2024 Platelet Count 150 01/22/2024 COAGS: INR 1.0 11/06/2021 SED RATE/CRP: No results found for this basename: wsr:*,crp:* Imaging: No new orthopaedic imaging to review Assessment Active Hospital Problems Diagnosis Date Noted Status post total hip replacement, right 01/19/2024 Hospital Course/Operations/Procedures: 01/19/2024 Procedure(s): ARTHROPLASTY TOTAL HIP CONVERSION AFTER PREVIOUS HIP SURG INPATIENT ATTENDING: Nash Krishnamurthy MD, Elective High-Risk Geriatric Patient Vulnerabilities: Delirium Risk, Impaired Functional Status, and Impaired Mobility Diet: DIET CARBOHYDRATE CONTROLLED Recommendations: Cognition: No Cognitive Impairment bCAM Score (Calc): Negative Delirium Screen Geriatric Consult (Age over 85 or impaired cognition):Consult not needed Palliative Care/Hospice: Consult not required Rehab/Therapy: PT/OT Recommendations: PT: Recommended Discharge Disposition: Subacute/SNF OT: Recommended Discharge Disposition: Subacute/SNF Swallow: Swallow Screening Result - Step 2: PASSED Swallow Screen - Patient Able To Swallow 3 Ounce Cup of Water Without Exhibiting Signs Of Aspiration Speech Recommendations: Speech: Speech Diet: Nutrition: Consult to Nutrition Therapy Nutrition Recommendations: MST: Total MST Score (Calculated): 0 Quality Consultant: Pharmacy: Consult not needed Social Work: Social Work Consulted Anticipated Discharge Disposition: Longterm Facility Jeremy Mcnair MD PGY 3 Orthopaedic Surgery Resident Pager #: [phone] 01/23/2024 6:12 AM Please page [phone] from 5p-6a and on weekends for any issues. THERAPY NT Observed: 01/22/2024 3:32 PM Status: COMPLETED Source: [facility] HNO ID: [id number] Author: SONALI ROWE PT Service: Physical Therapy Author Type: Physical Therapist Type: Therapy (PT/OT/Speech/Resp) Filed: 01/22/2024 15:34 Note Text: Physical Therapy Treatment Summary SERVICE DATE: 01/22/2024 SERVICE TIME: 1436 to 1500 ROOM: [id number] PT 6 Clicks Score: 15 DISCHARGE RECOMMENDATIONS Subacute/SNF Recommended Discharge Disposition Due to: Functional deficits requiring ongoing therapy service prior to discharge home., Functional status decline ASSESSMENT Response to Therapy Interventions: Good Participation in Activities, Pain. Steady progress, tolerating 45' distances and emerging CGA with walker, still needing mod assist with bed mobility, min assist with transfers. Assist still needed for [place] exercises but demo good quad activation. PRECAUTIONS Fall Risk, Hip Precautions - Posterior Dislocation, Weight Bearing Restrictions Right Lower Extremity Weight Bearing Status: WBAT CURRENT HOSPITAL COURSE 78 y.o female s/p R [place] 01/18. WBAT. Hgb 10.7 Relevant Past Medical History: DM2, HTN, neuropathy HOME LIVING Patient Lives With: Family Assistance Available: 24-Hour Entry To Home: Stairs, With Rail Number Of Stairs Into Home: 3 Number Of Stairs To Bed/Bath: 0 Tub/Shower Type: tub shower Laundry: family can complete Equipment Owned: Walker- Wheeled, Cane, Shower Chair, Grab Bars- Shower, Finish Mender PRIOR FUNCTIONAL LEVEL Required Assistance Assistance Required With: Shopping, Transportation Patient reports ambulating with 2 canes, recently started using walker, independent with ADLs, however difficulty getting in/out of tub, family assists with IADLs SUBJECTIVE sore R hip with movement, but agreeable to PT, requests assist into bathroom. THERAPY DIAGNOSIS Reduced mobility-other, Muscle Weakness (generalized), Unsteadiness on feet, General symptoms and signs-other TREATMENT INTERVENTIONS Therapeutic Exercise (55635), Therapeutic Activity (24658) Timed Code Treatment (minutes): 24 Skilled Treatment Time (minutes): 24 Therapeutic Exercise (94168) Treatment Minutes: 8 $ Therapeutic Exercise (19187) Billed Units: 1 unit Patient completed R total hip arthroplasty protocol (ankle pump, quad set, gluteal set, heel slide with assist needed, hip abd/add back to neutral with assist needed, short arc quad with set-up assist) x 10-15 reps each; instructed proper exercise technique; short rest breaks needed. Educated patient on posterior hip precautions. Ice applied R hip. Therapeutic Activity (21031) Treatment Minutes: 16 $ Therapeutic Activity (08907) Billed Units: 1 unit TRAINING AND EDUCATION PROVIDED Anatomy and Impact on Deficits, Assistive Device Use, Bed Mobility, Benefits of In-Hospital Mobility, Discharge Planning, Exercise Program, Falls Prevention, Gait Pattern, Reduction of Deviations, Modalities, Precautions/Restrictions, Role of Physical Therapy, Transfers THERAPEUTIC SKILLS USED Activity Dosing, Cues for Sequencing/Proper Technique for Activity, Cuing Tactile, Cuing Verbal, Cuing Visual, Facilitation of Joint Range of Motion, Muscle Activation Facilitation, Physical Assist FUNCTIONAL STATUS Bed Mobility Supine To Sit: Moderate Assistance, Additional Information HOB inclined AND use of rail needed; cues for safe technique maintaining hip precautions, with pillow-prop between LEs Sit to Supine: Moderate Assistance, Additional Information assist for LEs AND guiding trunk, cues for safety maintaining hip precautions Scooting: Minimal Assistance, Additional Information cues for hand AND foot placement, weight-shifting Transfers Sit To Stand: Minimal Assistance, Additional Information cues for transfer safety, hand placement, forward weight-shift to assist rise Stand To Sit: Minimal Assistance, Additional Information cues for safety with L LE against EOB, advancing R LE, UEs for controlled descent, aiming hips further back onto bed, Bed to Chair Gait Contact Guard Assistance, Additional Information cues for walker safety, upright posture/forward gaze as jameel; initially instruct for step-to pattern with increased UE use to help unweight painful R LE, able to progress slight step-through Gait Device: Wheeled Walker General Deviations/Observations: Antalgic gait, Elvia decreased, Flexed trunk posture, Step length decreased Gait Distance (feet): 15' x 1, 30' x 1, and 45' x 1 Stairs GOALS Patient will demonstrate progress to optimize functional mobility, maximize activity tolerance and endurance to maximize function upon discharge. Able to Perform HEP with: Verbal Cues Only Transfer Supine to/from Sit with: Contact Guard Assistance Transfer Sit to/from Stand with: Contact Guard Assistance Ambulate with: Contact Guard Assistance Distance: 30' x 2 Device: Wheeled Walker Ambulate Up and Down Curb Step with: Contact Guard Assistance Device: Wheeled Walker Ambulate Up and Down Steps with: Contact Guard Assistance Number of Steps: 4 Device: Rail, Cane Transfer: stepping bed to/from chair with CGA using wheeled walker Rehab Potential: Good Progress Toward Goals: Progressing as expected PLAN PT Frequency: Twice Daily Treatment Interventions: Education, Energy Conservation Training, Joint Mobility, Strengthening, Functional Mobility Training SIGNATURE: Sonali Rowe PT PATIENT NAME: Audra Archer DATE: January 22, 2024 TIME: 3:32 PM THERAPY NT Observed: 01/22/2024 12:35 PM Status: COMPLETED Source: [facility] HNO ID: [id number] Author: SONALI ROWE PT Service: Physical Therapy Author Type: Physical Therapist Type: Therapy (PT/OT/Speech/Resp) Filed: 01/22/2024 12:37 Note Text: Physical Therapy Treatment Summary SERVICE DATE: 01/22/2024 SERVICE TIME: 1140 to 1203 ROOM: [place] [id number] PT 6 Clicks Score: 15 DISCHARGE RECOMMENDATIONS Subacute/SNF Recommended Discharge Disposition Due to: Functional deficits requiring ongoing therapy service prior to discharge home., Functional status decline ASSESSMENT Response to Therapy Interventions: Good Participation in Activities, Pain. Steady progress, tolerating 45' distances with walker today, still needing mod assist with bed mobility, CG-min assist with transfers and gait. Assist needed for [place] exercises but demo good quad activation. PRECAUTIONS Fall Risk, Hip Precautions - Posterior Dislocation, Weight Bearing Restrictions Right Lower Extremity Weight Bearing Status: WBAT CURRENT HOSPITAL COURSE 78 y.o female s/p R [place] 01/18. WBAT. Hgb 10.7 Relevant Past Medical History: DM2, HTN, neuropathy HOME LIVING Patient Lives With: Family Assistance Available: 24-Hour Entry To Home: Stairs, With Rail Number Of Stairs Into Home: 3 Number Of Stairs To Bed/Bath: 0 Tub/Shower Type: tub shower Laundry: family can complete Equipment Owned: Walker- Wheeled, Cane, Shower Chair, Grab Bars- Shower, Finish Mender PRIOR FUNCTIONAL LEVEL Required Assistance Assistance Required With: Shopping, Transportation Patient reports ambulating with 2 canes, recently started using walker, independent with ADLs, however difficulty getting in/out of tub, family assists with IADLs SUBJECTIVE sore R hip but agreeable to PT THERAPY DIAGNOSIS Reduced mobility-other, Muscle Weakness (generalized), Unsteadiness on feet, General symptoms and signs-other TREATMENT INTERVENTIONS Therapeutic Exercise (70692), Gait Training (35111) Timed Code Treatment (minutes): 23 Skilled Treatment Time (minutes): 23 Therapeutic Exercise (41560) Treatment Minutes: 10 $ Therapeutic Exercise (57701) Billed Units: 1 unit Patient completed R total hip arthroplasty protocol (ankle pump, quad set, gluteal set, heel slide with assist needed, hip abd/add back to neutral with assist needed, short arc quad with set-up assist) x 10-15 reps each; instructed proper exercise technique; short rest breaks needed. Educated patient on posterior hip precautions. Ice applied R hip. Gait Training (12165) Treatment Minutes: 13 $ Gait Training (17127) Billed Units: 1 unit TRAINING AND EDUCATION PROVIDED Anatomy and Impact on Deficits, Assistive Device Use, Bed Mobility, Benefits of In-Hospital Mobility, Discharge Planning, Exercise Program, Falls Prevention, Gait Pattern, Reduction of Deviations, Modalities, Precautions/Restrictions, Role of Physical Therapy, Transfers THERAPEUTIC SKILLS USED Activity Dosing, Cues for Sequencing/Proper Technique for Activity, Cuing Tactile, Cuing Verbal, Cuing Visual, Facilitation of Joint Range of Motion, Muscle Activation Facilitation, Physical Assist FUNCTIONAL STATUS Bed Mobility Supine To Sit: Moderate Assistance, Additional Information Sit to Supine: Moderate Assistance, Additional Information assist for LEs AND guiding trunk, cues for safety maintaining hip precautions Scooting: Moderate Assistance Transfers Sit To Stand: Minimal Assistance, Additional Information cues for transfer safety, hand placement, forward weight-shift to assist rise Stand To Sit: Minimal Assistance, Additional Information cues for safety with L LE against EOB, advancing R LE, UEs for controlled descent, aiming hips further back onto bed, Bed to Chair Gait Contact Guard Assistance, Additional Information cues for walker safety, upright posture/forward gaze as jameel; initially instruct for step-to pattern with increased UE use to help unweight painful R LE, able to progress slight step-through Gait Device: Wheeled Walker General Deviations/Observations: Antalgic gait, Elvia decreased, Flexed trunk posture, Step length decreased Gait Distance (feet): 45' x 2 Stairs GOALS Patient will demonstrate progress to optimize functional mobility, maximize activity tolerance and endurance to maximize function upon discharge. Able to Perform HEP with: Verbal Cues Only Transfer Supine to/from Sit with: Contact Guard Assistance Transfer Sit to/from Stand with: Contact Guard Assistance Ambulate with: Contact Guard Assistance Distance: 30' x 2 Device: Wheeled Walker Ambulate Up and Down Curb Step with: Contact Guard Assistance Device: Wheeled Walker Ambulate Up and Down Steps with: Contact Guard Assistance Number of Steps: 4 Device: Rail, Cane Transfer: stepping bed to/from chair with CGA using wheeled walker Rehab Potential: Good Progress Toward Goals: Progressing as expected PLAN PT Frequency: Twice Daily Treatment Interventions: Education, Energy Conservation Training, Joint Mobility, Strengthening, Functional Mobility Training SIGNATURE: Sonali Rowe, SHANNAN PATIENT NAME: Audra Archer DATE: January 22, 2024 TIME: 12:35 PM PROGRESS Observed: 01/22/2024 11:26 AM Status: COMPLETED Source: [facility] HNO ID: [id number] Author: JT GERONIMO MD Service: Hospital Medicine Author Type: Physician Type: Progress Notes Filed: 01/22/2024 11:28 Note Text: DEPARTMENT OF HOSPITAL MEDICINE PROGRESS NOTE SERVICE DATE: 01/22/2024 SERVICE TIME: 11:26 AM Hospital Medicine/Primary Attending: Jt Geronimo MD NIGHT AND WEEKEND COVERAGE: After 7pm please page [phone] SUBJECTIVE: Follow up for DM. No new issues. OBJECTIVE: PHYSICAL EXAM: BP 124/57 Pulse 73 Temp (Src) 98.4 (Oral) Resp 18 Ht 5' 5 (1.65m) Wt 211 lb (95.7kg) SpO2 93% BMI 35.11 kg/(m2). O2 Therapy: Room Air General - AANDOx3, NAD, Calm Skin- No new lesions CV - RRR S1 S2, No M/R/G RESP - CTA B/L No wheezes, ronchi, rales ABD - soft, NT, ND +BS ENT- no icterus Neuro- No dysarthria MEDICATIONS: Current Facility-Administered Medications Medication Dose Route Frequency amLODIPine 5 mg tab(s) (NORVASC) 5 mg ORAL DAILY carvedilol 6.25 mg tab(s) (COREG) 6.25 mg ORAL BID w MEALS citalopram 10 mg tab(s) (CeleXA) 10 mg ORAL DAILY isosorbide mononitrate ER 30 mg tab(s) (IMDUR) 30 mg ORAL DAILY nitroglycerin sublingual 0.4 mg tab(s) (NITROQUICK) 0.4 mg SUBLINGUAL q 5 MIN PRN pregabalin 150 mg cap(s) (LYRICA) 150 mg ORAL TID ondansetron 4 mg tab(s) (ZOFRAN) 4 mg ORAL q 6 H PRN Or ondansetron (PF) 4 mg injection (ZOFRAN) 4 mg INTRAVENOUS q 6 H PRN magnesium hydroxide 400 mg/5 mL 30 mL (MOM) 30 mL ORAL DAILY PRN bisacodyl EC 10 mg tab(s) (DULCOLAX) 10 mg ORAL DAILY aluminum-magnesium hydroxide-simethicone 200-200-20 mg/5 mL 30 mL 30 mL ORAL q 2 H PRN ascorbic acid (vitamin C) 500 mg tab(s) (VITAMIN C) 500 mg ORAL BID w MEALS senna 17.2 mg tab(s) (SENOKOT) 17.2 mg ORAL AT BEDTIME aspirin, enteric coated 81 mg tab(s) 81 mg ORAL BID NaCl 0.9% iv infusion 75 mL/hr INTRAVENOUS CONTINUOUS acetaminophen 650 mg tab(s) (TYLENOL) [address]ID [address] 40 mg tab(s) (PROTONIX) 40 mg ORAL DAILY (6 AM) NaCl 0.9% iv flush bag 20 mL INTRAVENOUS PRN dextrose 15 gram/32 mL 15 g (TRUEPLUS) 15 g ORAL PRN Or glucagon 1 mg injection 1 mg INTRAMUSCULAR PRN Or dextrose 10% iv bolus 12.5 g INTRAVENOUS PRN insulin lispro injection (rapid acting) (ADMElog) SUBCUTANEOUS w MEALS insulin lispro injection (rapid acting) (ADMElog) SUBCUTANEOUS AT BEDTIME insulin glargine 20 Units pen (long acting) 20 Units SUBCUTANEOUS AT BEDTIME oxyCODONE IR 2.5-5 mg tab(s) (ROXICODONE) 2.5-5 mg ORAL q 4 H PRN morphine 2 mg injection 2 mg INTRAVENOUS q 2 H PRN magnesium lactate ER 84 mg tab(s) (MAGTAB) 84 mg ORAL AT BEDTIME PRN cyclobenzaprine 5 mg tab(s) (FLEXERIL) 5 mg ORAL BID PRN buprenorphine transdermal patch 20 mcg/hr (BUTRANS) 1 Patch TRANSDERMAL 1/WK DATA: Diagnostic tests reviewed for today's visit: CBC: Recent Labs 01/22/24 0535 WBC 9.59 RBC 3.57* HB 10.7* HCT 32.8* PLT 150 MCV 91.9 MCH 30.0 MPV 10.4 Coags: No results for input(s): PT, INR, APTT in the last 24 hours. BMP: No results for input(s): NA, K, CHLOR, CO2, BUN, CREAT, GLUC in the last 24 hours. CMP: No results for input(s): NA, K, CHLOR, CO2, BUN, CREAT, GLUC, TPROT, CA, MG, ALBUMIN, TBILI, ALKPHOS, ALT, AST, ANION in the last 24 hours. Cardiac Enzymes: No results for input(s): CK, MB, CKMB, TROPT in the last 24 hours. Liver Function, Amylase, Lipase: No results for input(s): TPROT, ALB, ALT, AST, ALKPHOS, TBILI, AMYLASE, LIPASE, LACTATE in the last 24 hours. MG/PHOS: No results for input(s): MG, P in the last 24 hours. Renal Panel: No results for input(s): ALBUMIN, CREAT, BUN, GLUC, CA, P, CHLOR, K, CO2, NA in the last 24 hours. Heme: No results for input(s): RETICP, ABSRETIC, LD, LESLEY, FE, TIBC,TRANSFERSAT in the last 24 hours. No results found for: UALBCR Active Hospital Problems Diagnosis Date Noted POA Status post total hip replacement, right 01/19/2024 Yes Resolved Hospital Problems No resolved problems to display. Assessment/Plan #Status post total hip replacement, right POD2 Management per primary Plan for SNF at discharge, likely tomorrow per pt #Type 2 diabetes mellitus good control at home with A1c 6.5 -Continue basal bolus insulin monitor blood sugars adjust insulin as needed Very stable #Hypertension -Continue home regimen. Great control #Obesity Class III (BMI +/>40 or >35 with comorbidity) Patient medically stable for DC. Call [facility] if needed, we will SIGN OFF. VTE Prophylaxis: As per primary team Disposition: To be determined Plan of care discussed with: Provider, RN, Patient SIGNATURE: Jt Geronimo MD PATIENT NAME: Audra Archer DATE: January 22, 2024 TIME: 11:26 AM PAGER/CONTACT #: My Pager. Page [phone] after 7PM, as my pager is off. THERAPY NT Observed: 01/22/2024 10:30 AM Status: COMPLETED Source: [facility] HNO ID: [id number] Author: MILDRED MCMAHAN OTR/Jovanny Service: Occupational Therapy Author Type: Occupational Therapist Type: Therapy (PT/OT/Speech/Resp) Filed: 01/22/2024 10:33 Note Text: Occupational Therapy Treatment Summary SERVICE DATE: 01/22/2024 SERVICE TIME: 918 to 945 ROOM: [place] [address] OT 6 Clicks Score: 16 DISCHARGE RECOMMENDATIONS Subacute/SNF Recommended Discharge Disposition Due to: Functional deficits requiring ongoing therapy service prior to discharge home., ADL impairment ASSESSMENT Response to Therapy Interventions: Good Participation in Activities, Improved Tolerance for Activity, Multiple Ongoing Medical Issues Patient progressing well towards goals, able to participate in extended activity this session despite having more pain in her left nonoperative leg. Need to recommend SNF at discharge to optimize safety and independence with activites of daily living and IADLs. Assisted patient to sit on edge of bed prior to extended unsupported sitting for grooming and bathing activities. Patient able to complete oral hygiene seated with set up assist. Facilitated full body bathing and upper extremity doffed/donned gown. Patient completed standing pericare and leg bathing with support from wheeled walker with heavy therapist assist. Patient able to take effortful steps to chair using wheeled walker, set up with belongings within reach at end of session. PRECAUTIONS Fall Risk, Hip Precautions - Posterior Dislocation, Weight Bearing Restrictions Right Lower Extremity Weight Bearing Status: WBAT CURRENT HOSPITAL COURSE 78 y.o female s/p R [place] 01/18 Relevant Past Medical History: DM2, HTN, neuropathy HOME LIVING Patient Lives With: Family Assistance Available: 24-Hour Entry To Home: Stairs, With Rail Number Of Stairs Into Home: 3 Number Of Stairs To Bed/Bath: 0 Tub/Shower Type: tub shower Laundry: family can complete Equipment Owned: Walker- Wheeled, Cane, Shower Chair, Grab Bars- Shower, Finish Mender PRIOR FUNCTIONAL LEVEL Required Assistance Assistance Required With: Shopping, Transportation Patient reports ambulating with 2 canes, recently started using walker, independent with ADLs, however difficulty getting in/out of tub, family assists with IADLs Baseline Cognition: Oriented to self, Oriented to place, Oriented to time, Oriented to situation SUBJECTIVE Pt agreeable to OT would like to get washed up COGNITION Responsiveness: Alert, Awake Follows Commands: 3-step Commands THERAPY DIAGNOSIS Decreased activities of daily living (ADL), Reduced mobility-other TREATMENT INTERVENTIONS Self [facility] Management (17791) Timed Code Treatment (minutes): 27 Skilled Treatment Time (minutes): 27 Self [facility] Management (61536) Treatment Minutes: 27 $ Self [facility] Management (47954) Billed Units: 2 units TRAINING AND EDUCATION PROVIDED Activity Adaptation/Compensatory Strategies, Assistive Device Use, Benefits of In-Hospital Mobility, Discharge Planning, Disease Specific Education, Expected Functional Level, Functional Mobility Involving ADLs, Adaptive Equipment/DME, Role of Occupational Therapy, Precautions/Restrictions, Standing Balance to Improve [place] with ADLs/Self-Care, Transfer - Sit to Stand, Grooming Tasks, Lower Extremity Bathing, Upper Extremity Bathing, Upper Extremity Dressing THERAPEUTIC SKILLS USED Activity Dosing, Cues for Sequencing/Proper Technique for Activity, Cuing Verbal, Movement Facilitation, Physical Assist, Therapeutic Use of Self, Teach-Back for Education FUNCTIONAL STATUS mobility performed during session in bold, other mobility completed during prior session and may no longer be correct or appropriate to complete. Activities of Daily Living Assist Level Additional Information Feeding Independent Grooming Minimal Assistance, Additional Information unable to tolerate at sink Bathing Upper Body Minimal Assistance Bathing Lower Body Moderate Assistance Dressing Upper Body Minimal Assistance Dressing Lower Body Maximal Assistance Toileting Minimal Assistance Mobility Assist Level Additional Information Bed Mobility Sit to Stand Minimal Assistance Stand to Sit Minimal Assistance Bed to Chair Minimal Assistance Bed To Chair Transfer Type: Stepping Bed To Chair Transfer Equipment: Wheeled Walker Toilet/Commode Shower Functional Mobility Minimal Assistance Functional Mobility Device: Wheeled Walker BALANCE Static Standing Balance: Fair Dynamic Standing Balance: Fair GOALS Grooming with: Stand By Assistance (sink side) Upper Body Bathing with: Supervision Upper Body Dressing with: Supervision Lower Body Bathing with: Modified Independent (via AE) Lower Body Dressing with: Modified Independent (via AE) Toilet Hygiene with: Contact Guard Assistance Chair Transfer with: Contact Guard Assistance Toilet Transfer with: Contact Guard Assistance Tub Transfer with: Minimal Assistance Car Transfer with: Minimal Assistance Demonstrate Competence with Education with: Independent (posterior hip precautions) Progress Toward Goals: Progressing as expected Rehab Potential: Good PLAN OT Frequency: 2 Times Per Week Treatment Interventions: Education, Self Care/Home Management, Functional Mobility Training, Balance Training SIGNATURE: MENDEL Hsu PATIENT NAME: Audra Archer DATE: January 22, 2024 TIME: 10:30 AM PROGRESS Observed: 01/22/2024 6:07 AM Status: COMPLETED Source: [facility] HNO ID: [id number] Author: JEREMY MCNAIR MD Service: Orthopaedic Surgery Author Type: Resident Type: Progress Notes Filed: 01/22/2024 07:05 Note Text: ORTHOPAEDIC SURGERY DAILY PROGRESS NOTE Patient Name: Audra Archer Date of Evaluation: 01/22/2024 Admission Date: 01/19/2024 Time of Evaluation: 6:07 AM ASSESSMENT: 78 year old female POD # 3 s/p R [place]. PLAN: - Management per orthopaedics - Pain control - Regular diet, advance as tolerated - PT/OT: Weight bearing as tolerated right lower extremity - DVT: SCDs, Aspirin 81mg BID x 21 days - Post-operative antibiotics: Ancef 2g Q8H x 2 doses - Maintain Mepilex dressing x 7 days - Magnesium ordered (home med) for restless leg syndrome at bedtime. -Patient remains hyperglycemic, appreciate medicine recs - Post operative imaging: AP pelvis reviewed - No cbc yet today. Hgb 10.7 yesterday - Disposition: PT/OT recommending SNF. Referrals sent. Rehab preapproved (no note from care management yesterday) INTERVAL HPI: No acute events overnight recorded in chart. Patient without IV overnight and yesterday, pt refusing. Overall, patient is doing well. No new numbness /tingling, no new CP and SOB. Pain is currently controlled this morning. OBJECTIVE: BP 124/55 Pulse 75 Temp 36.9 ?C (98.5 ?F) (Oral) Resp 15 Ht 165.1 cm (5' 5) Wt 95.7 kg (211 lb) SpO2 90% BMI 35.11 kg/m? Intake/Output Summary (Last 24 hours) No intake/output data recorded. Exam: General: Pt is alert, resting in bed, no acute distress, cooperative throughout the exam and interview, answers questions appropriately Extremities: Right Lower Extremity: Medial malleoli symmetric bilaterally (somewhat more distal on rle, without any obvious shortening of right lower extremity. Dressing clean, dry, and intact. Surgical site no drainage and Mepilex intact. SILT S/S/SP/DP/T Motor intact DF/PF/EHL DP pulse palpable, foot warm, BCR toes Compartments soft, compressible. Tolerates passive stretch of digits. Labs: BMP: Sodium 137 01/20/2024 Potassium 4.7 01/20/2024 Chloride 102 01/20/2024 CO2 22 01/20/2024 BUN 17 01/20/2024 Creatinine 1.06 01/20/2024 Glucose 230 01/20/2024 CBC: WBC 9.59 01/22/2024 Hemoglobin 10.7 01/22/2024 Hematocrit 32.8 01/22/2024 Platelet Count 150 01/22/2024 COAGS: INR 1.0 11/06/2021 SED RATE/CRP: No results found for this basename: wsr:*,crp:* Imaging: No new orthopaedic imaging to review Assessment Active Hospital Problems Diagnosis Date Noted Status post total hip replacement, right 01/19/2024 Hospital Course/Operations/Procedures: 01/19/2024 Procedure(s): ARTHROPLASTY TOTAL HIP CONVERSION AFTER PREVIOUS HIP SURG INPATIENT ATTENDING: Dr. Manzanares, Nash Cole MD, Urgent High-Risk Geriatric Patient Vulnerabilities: Delirium Risk, Impaired Functional Status, and Impaired Mobility Diet: DIET CARBOHYDRATE CONTROLLED Recommendations: Cognition: No Cognitive Impairment bCAM Score (Calc): Negative Delirium Screen Geriatric Consult (Age over 85 or impaired cognition):Consult not needed Palliative Care/Hospice: Consult not required Rehab/Therapy: PT/OT Recommendations: PT: Recommended Discharge Disposition: Subacute/SNF OT: Recommended Discharge Disposition: Subacute/SNF Swallow: Swallow Screening Result - Step 2: PASSED Swallow Screen - Patient Able To Swallow 3 Ounce Cup of Water Without Exhibiting Signs Of Aspiration Speech Recommendations: Speech: Speech Diet: Nutrition: Consult to Nutrition Therapy Nutrition Recommendations: MST: Total MST Score (Calculated): 0 Quality Consultant: Pharmacy: Consult not needed Social Work: Social Work Consulted Anticipated Discharge Disposition: Longterm Facility Jeremy Mcnair MD PGY 3 Orthopaedic Surgery Resident Pager #: [phone] 01/22/2024 6:07 AM Please page [phone] from 5p-6a and on weekends for any issues. CBC W AUTO DIFF BLD Collected: 01/22/2024 5:[address] [facility]: F Source: [facility] Order Comment: Specimen Type : BLOOD SPECIMEN Ordering Facility: [facility] Address: [address] [place] [address] TYPE CODE TESTS RESULT OUT OF RANGE REFERENCE UNITS LAB 6690-2(LOINC) WBC # Bld Auto 9.59 3.70-11.00 k/uL LAB 789-8(LOINC) RBC # Bld Auto 3.57 Low 3.90-5.20 m/ uL LAB 718-7(LOINC) Hgb Bld-mCnc 10.7 Low 11.5-15.5 g/dL LAB 4544-3(LOINC) Hct VFr Bld Auto 32.8 Low 36.0-46.0 % LAB 787-2(LOINC) MCV RBC Auto 91.9 80.0-100.0 fL LAB 785-6(LOINC) MCH RBC Qn Auto 30.0 26.0-34.0 p g LAB 786-4([facility]) MCHC RBC Auto-mCnc 32.6 30.5-36.0 g/dL LAB 13482-4([facility]) RDW RBC-Rto 13.6 11.5-15.0 % LAB 777-3([facility]) Platelet # Bld Auto 150 150-400 k/uL LAB 25625-0([facility]) PMV Bld Auto 10.4 9.0-12.7 fL LAB 770-8([facility]) Neutrophils/leuk NFr Bld Auto 59.2 % LAB 751-8([facility]) Neutrophils # Bld Auto 5.67 1.45-7.50 k/uL LAB 736-9([facility]) Lymphocytes/leuk NFr Bld Auto 24.3 % LAB 731-0([facility]) Lymphocytes # Bld Auto 2.33 1.00-4.00 k/uL LAB 5905-5([facility]) Monocytes/leuk NFr Bld Auto 11.8 % LAB 742-7([facility]) Monocytes # Bld Auto 1.13 High <0.87 k/uL LAB 713-8([facility]) Eosinophil/leuk NFr Bld Auto 3.6 % LAB 711-2([facility]) Eosinophil # Bld Auto 0.35 <0.46 k/uL LAB 706-2([facility]) Basophils/leuk NFr Bld Auto 0.6 % LAB 704-7([facility]) Basophils # Bld Auto 0.06 <0.11 k/uL LAB 27828-6([facility]) Imm Granulocytes/lashae k NFr Bld Auto 0.5 % LAB 50890-9([facility]) Imm Granulocytes # Bld Auto 0.05 <0.10 k/uL LAB 78540-4([facility]) nRBC/100 WBC Bld-Rto 0.0 /100 WBC LAB 771-6([facility]) nRBC # Bld Auto <0.01 <0.01 k/u L LAB 13722-5([facility]) Differential method Bld Auto Performed By: #### 68570-8 # ### [facility] CLIA [id number] [address] NURSING PROG Observed: 01/21/2024 8:40 PM Status: COMPLETED Source: [facility] HNO ID: [id number] Author: JUSTICE GRAY RN Service: ? Author Type: Registered Nurse Type: Nursing Progress Note Filed: 01/21/2024 21:51 Note Text: Dayshift RN reported to this RN that the patient has not had an IV all day due to several attempts and being a hard stick, and that ortho team was aware and ok with this. There was no nursing communication order in place. This RN spoke with ortho which stated that they would like patient to have an IV and to try to place one. RN informed patient of situation and need for IV and patient refused RN to attempt. She stated that if the resident wants her to have one she can come and convince the patient. RN informed ortho team. PROGRESS Observed: 01/21/2024 11:51 AM Status: COMPLETED Source: [facility] HNO ID: [id number] Author: CHUCK CUNNINGHAM DO Service: Hospital Medicine Author Type: Physician Type: Progress Notes Filed: 01/21/2024 11:57 Note Text: DEPARTMENT OF HOSPITAL MEDICINE PROGRESS NOTE SERVICE DATE: 01/21/2024 SERVICE TIME: 11:51 AM Hospital Medicine/Primary Attending: Chuck Cunningham DO NIGHT AND WEEKEND COVERAGE: After 7pm please page [phone] SUBJECTIVE: Patient seen examined at bedside, no new acute complaints or concerns reported, no events reported overnight. OBJECTIVE: PHYSICAL EXAM: BP 101/42 Pulse 68 Temp (Src) 99.4 (Oral) Resp 19 Ht 5' 5 (1.65m) Wt 211 lb (95.7kg) SpO2 91% BMI 35.11 kg/(m2). O2 Therapy: Room Air, Liters: 2.0 General - Alert, NAD, Calm ENT- no icterus, MMM CV - RRR S1 S2, No M/R/G RESP - CTA B/L No wheezes, ronchi, rales ABD - soft, NT, ND, NM +BS Neuro- Conversant, follows commands, moves all ext, gross sensation intact Ext:Non-tender, no edema, right hip tenderness, dressing over surgical site Skin: warm, no rash MEDICATIONS: Current Facility-Administered Medications Medication Dose Route Frequency amLODIPine 5 mg tab(s) (NORVASC) 5 mg ORAL DAILY carvedilol 6.25 mg tab(s) (COREG) 6.25 mg ORAL BID w MEALS citalopram 10 mg tab(s) (CeleXA) 10 mg ORAL DAILY isosorbide mononitrate ER 30 mg tab(s) (IMDUR) 30 mg ORAL DAILY nitroglycerin sublingual 0.4 mg tab(s) (NITROQUICK) 0.4 mg SUBLINGUAL q 5 MIN PRN buprenorphine transdermal patch 20 mcg/hr (BUTRANS) 1 Patch TRANSDERMAL 1/WK pregabalin 150 mg cap(s) (LYRICA) 150 mg ORAL TID ondansetron 4 mg tab(s) (ZOFRAN) 4 mg ORAL q 6 H PRN Or ondansetron (PF) 4 mg injection (ZOFRAN) 4 mg INTRAVENOUS q 6 H PRN magnesium hydroxide 400 mg/5 mL 30 mL (MOM) 30 mL ORAL DAILY PRN bisacodyl EC 10 mg tab(s) (DULCOLAX) 10 mg ORAL DAILY aluminum-magnesium hydroxide-simethicone 200-200-20 mg/5 mL 30 mL 30 mL ORAL q 2 H PRN ascorbic acid (vitamin C) 500 mg tab(s) (VITAMIN C) 500 mg ORAL BID w MEALS senna 17.2 mg tab(s) (SENOKOT) 17.2 mg ORAL AT BEDTIME aspirin, enteric coated 81 mg tab(s) 81 mg ORAL BID NaCl 0.9% iv infusion 75 mL/hr INTRAVENOUS CONTINUOUS acetaminophen 650 mg tab(s) (TYLENOL) 650 [address]ID [address] 40 mg tab(s) (PROTONIX) 40 mg ORAL DAILY (6 AM) NaCl 0.9% iv flush bag 20 mL INTRAVENOUS PRN dextrose 15 gram/32 mL 15 g (TRUEPLUS) 15 g ORAL PRN Or glucagon 1 mg injection 1 mg INTRAMUSCULAR PRN Or dextrose 10% iv bolus 12.5 g INTRAVENOUS PRN insulin lispro injection (rapid acting) (ADMElog) SUBCUTANEOUS w MEALS insulin lispro injection (rapid acting) (ADMElog) SUBCUTANEOUS AT BEDTIME insulin glargine 20 Units pen (long acting) 20 Units SUBCUTANEOUS AT BEDTIME oxyCODONE IR 2.5-5 mg tab(s) (ROXICODONE) 2.5-5 mg ORAL q 4 H PRN morphine 2 mg injection 2 mg INTRAVENOUS q 2 H PRN magnesium lactate ER 84 mg tab(s) (MAGTAB) 84 mg ORAL AT BEDTIME PRN cyclobenzaprine 5 mg tab(s) (FLEXERIL) 5 mg ORAL BID PRN DATA: Diagnostic tests reviewed for today's visit: CBC: No results for input(s): WBC, RBC, HB, HCT, PLT, MCV, MCH, MPV, RDW in the last 24 hours. Coags: No results for input(s): PT, INR, APTT in the last 24 hours. BMP: No results for input(s): NA, K, CHLOR, CO2, BUN, CREAT, GLUC in the last 24 hours. CMP: No results for input(s): NA, K, CHLOR, CO2, BUN, CREAT, GLUC, TPROT, CA, MG, ALBUMIN, TBILI, ALKPHOS, ALT, AST, ANION in the last 24 hours. Cardiac Enzymes: No results for input(s): CK, MB, CKMB, TROPT in the last 24 hours. Liver Function, Amylase, Lipase: No results for input(s): TPROT, ALB, ALT, AST, ALKPHOS, TBILI, AMYLASE, LIPASE, LACTATE in the last 24 hours. MG/PHOS: No results for input(s): MG, P in the last 24 hours. Renal Panel: No results for input(s): ALBUMIN, CREAT, BUN, GLUC, CA, P, CHLOR, K, CO2, NA in the last 24 hours. Heme: No results for input(s): RETICP, ABSRETIC, LD, LESLEY, FE, TIBC,TRANSFERSAT in the last 24 hours. No results found for: UALBCR Assessment/Plan This is a 78 year old female with: #Status post total hip replacement, right POD2 Management per primary Plan for SNF at discharge #Type 2 diabetes mellitus good control at home with A1c 6.5 -Continue basal bolus insulin monitor blood sugars adjust insulin as needed #Hypertension -Continue home Coreg, amlodipine, lisinopril, Imdur hold for lower blood pressures as needed will place hold parameters with pressures on lower side this morning #Obesity Class III (BMI +/>40 or >35 with comorbidity) #CHF -Continue Coreg, Imdur VTE PROPHYLAXIS: As per primary team Disposition: SNF Plan of care discussed with: Provider, RN, Patient Problem List Status post total hip replacement, right (POA: Yes) This note was generated using 2-Observe voice dictation. All reasonable efforts were made to correct dictation errors. SIGNATURE: Chuck Cunningham DO PATIENT NAME: Audra Archer DATE: January 21, 2024 TIME: 11:51 AM PAGER/CONTACT #: My Pager THERAPY NT Observed: 01/21/2024 9:35 AM Status: COMPLETED Source: [facility] HNO ID: [id number] Author: NATO HARPER, PT Service: Physical Therapy Author Type: Physical Therapist Type: Therapy (PT/OT/Speech/Resp) Filed: 01/21/2024 09:37 Note Text: Physical Therapy Treatment Summary SERVICE DATE: 01/21/2024 SERVICE TIME: 857 to 929 ROOM: [place] [address] PT 6 Clicks Score: 15 DISCHARGE RECOMMENDATIONS Subacute/SNF Recommended Discharge Disposition Comments: Patient functioning below baseline, recommend SNF at discharge Recommended Discharge Disposition Due to: Functional deficits requiring ongoing therapy service prior to discharge home., Functional status decline ASSESSMENT Response to Therapy Interventions: Good Participation in Activities, Pain, Requires Additional Time to Complete Activities, Improved Tolerance for Activity Ongoing need of assist with all mobility PRECAUTIONS Fall Risk, Hip Precautions - Posterior Dislocation, Weight Bearing Restrictions Right Lower Extremity Weight Bearing Status: WBAT CURRENT HOSPITAL COURSE 78 y.o female s/p R [place] 01/18 Relevant Past Medical History: DM2, HTN, neuropathy HOME LIVING Patient Lives With: Family Assistance Available: 24-Hour Entry To Home: Stairs, With Rail Number Of Stairs Into Home: 3 Number Of Stairs To Bed/Bath: 0 Tub/Shower Type: tub shower Laundry: family can complete Equipment Owned: Walker- Wheeled, Cane, Shower Chair, Grab Bars- Shower, Finish Mender PRIOR FUNCTIONAL LEVEL Required Assistance Assistance Required With: Shopping, Transportation Patient reports ambulating with 2 canes, recently started using walker, independent with ADLs, however difficulty getting in/out of tub, family assists with IADLs SUBJECTIVE Pt pleasant and agreeable to PT THERAPY DIAGNOSIS Reduced mobility-other, Muscle Weakness (generalized), Unsteadiness on feet, General symptoms and signs-other TREATMENT INTERVENTIONS Therapeutic Exercise (71678), Therapeutic Activity (31412), Gait Training (37258) Timed Code Treatment (minutes): 26 Skilled Treatment Time (minutes): 26 Therapeutic Exercise (01152) Treatment Minutes: 8 $ Therapeutic Exercise (13648) Billed Units: 0 units Therapeutic Activity (76033) Treatment Minutes: 8 $ Therapeutic Activity (13476) Billed Units: 1 unit Patient completed total hip arthroplasty protocol (ankle pump, quad set, gluteal set, heel slide, hip abd/add to neutral, short arc quad, long arc quad, hip adductor squeeze) x 10-15 reps with supervised to min amount of assist. Educated patient on hip precautions. Patient recalls all hip precautions. Patient set up with ice to surgical hip and elevated lower extremity as needed. Gait Training (39300) Treatment Minutes: 10 $ Gait Training (59905) Billed Units: 1 unit Educated patient in the use of a wheeled walker. Educated to maintain appropriate proximity to the walker in order to maximize the assistance the arms can provide to the lower extremities. Educated patient not to walk too far into the walker where their feet step beyond the frame, as this can cause a loss of balance backwards. Educated to remain within the frame of the walker when turning. TRAINING AND EDUCATION PROVIDED Assistive Device Use, Bed Mobility, Benefits of In-Hospital Mobility, Discharge Planning, Expected Functional Level, Exercise Program, Falls Prevention, Gait Pattern, Reduction of Deviations, Positioning, Precautions/Restrictions, Role of Physical Therapy, Home Safety, Home Set-up/Modifications, Pre-gait Activities, Transfers, Standing Balance THERAPEUTIC SKILLS USED Activity Dosing, Cues for Sequencing/Proper Technique for Activity, Cuing Tactile, Cuing Verbal, Movement Facilitation, Physical Assist, Postural Alignment Correction, Cuing Visual mobility performed during session in bold, other mobility completed during prior session and may no longer be correct or appropriate to complete. FUNCTIONAL STATUS Bed Mobility Supine To Sit: Moderate Assistance, Additional Information HOb elevated, cues for sequencing, assist to move LE and assist trunk Scooting: Moderate Assistance assist with draw sheet to scoot hips forward Transfers Sit To Stand: Minimal Assistance, Additional Information Verbal cues to keep right lower extremity slid slightly forward past the left lower extremity. Verbal cues to scoot towards the edge of the chair and for proper hand positioning. X 1 from the recliner Stand To Sit: Minimal Assistance, Additional Information Verbal cues for body positioning to the recliner. Encourage patient to keep right lower extremity slide forward. Verbal cues to reach back 1 hand at a time, push hips back, and sit slowly while exhaling. Bed to Chair Gait Minimal Assistance, Additional Information Pt needs cues to stand erect. Better step length and distance walked todayh Gait Device: Wheeled Walker General Deviations/Observations: Antalgic gait, Elvia decreased, Flexed trunk posture, Step length decreased Gait Distance (feet): 50'x2 Stairs GOALS Patient will demonstrate progress to optimize functional mobility, maximize activity tolerance and endurance to maximize function upon discharge. Able to Perform HEP with: Verbal Cues Only Transfer Supine to/from Sit with: Contact Guard Assistance Transfer Sit to/from Stand with: Contact Guard Assistance Ambulate with: Contact Guard Assistance Distance: 30' x 2 Device: Wheeled Walker Ambulate Up and Down Curb Step with: Contact Guard Assistance Device: Wheeled Walker Ambulate Up and Down Steps with: Contact Guard Assistance Number of Steps: 4 Device: Rail, Cane Transfer: stepping bed to/from chair with CGA using wheeled walker Rehab Potential: Good Progress Toward Goals: Progressing as expected PLAN PT Frequency: Twice Daily Treatment Interventions: Education, Energy Conservation Training, Joint Mobility, Strengthening, Functional Mobility Training SIGNATURE: Nato Harper, PT PATIENT NAME: Audra Archer DATE: January 21, 2024 TIME: 9:35 AM PROGRESS Observed: 01/21/2024 6:12 AM Status: COMPLETED [id number] Author: JEREMY MCNAIR MD Service: Orthopaedic Surgery Author Type: Resident Type: Progress Notes Filed: 01/21/2024 06:54 Note Text: ORTHOPAEDIC SURGERY DAILY PROGRESS NOTE Patient Name: Audra Archer Date of Evaluation: 01/21/2024 Admission Date: 01/19/2024 Time of Evaluation: 6:12 AM ASSESSMENT: 78 year old female POD #2 status-post R [place]. PLAN: - Management per orthopaedics - Pain control - Regular diet, advance as tolerated - PT/OT: Weight bearing as tolerated right lower extremity - DVT: SCDs, Aspirin 81mg BID x 21 days - Post-operative antibiotics: Ancef 2g Q8H x 2 doses - Maintain Mepilex dressing x 7 days - Magnesium ordered (home med) for restless leg syndrome at bedtime. - Post operative imaging: AP pelvis reviewed - No cbc yet today. Hgb 11.2 yesterday - Disposition: PT/OT recommending SNF. Referrals sent. Rehab preapproved INTERVAL HPI: No acute events overnight recorded in chart. Patient states she has a bad night due to restless leg syndrome. Hip was not cause of bad night per patient. Pt currently complains of some pain in right hip which is currently controlled with pain medications. The patient denies chest pain, SOB, nausea/vomiting, fevers/chills, and new numbness/tingling. OBJECTIVE: BP 126/96 Pulse 68 Temp 37.4 ?C (99.4 ?F) (Oral) Resp 20 Ht 165.1 cm (5' 5) Wt 95.7 kg (211 lb) SpO2 94% BMI 35.11 kg/m? Intake/Output Summary (Last 24 hours) No intake/output data recorded. Exam: General: Pt is alert, resting in bed, no acute distress, cooperative throughout the exam and interview, answers questions appropriately Extremities: Right Lower Extremity: Medial malleoli symmetric bilaterally without any obvious shortening of right lower extremity. Dressing clean, dry, and intact. Surgical site no drainage and Mepilex intact. SILT S/S/SP/DP/T Motor intact DF/PF/EHL DP pulse palpable, foot warm, BCR toes Compartments soft, compressible. Tolerates passive stretch of digits. Labs: BMP: Sodium 137 01/20/2024 Potassium 4.7 01/20/2024 Chloride 102 01/20/2024 CO2 22 01/20/2024 BUN 17 01/20/2024 Creatinine 1.06 01/20/2024 Glucose 230 01/20/2024 CBC: WBC 13.07 01/20/2024 Hemoglobin 11.2 01/20/2024 Hematocrit 34.7 01/20/2024 Platelet Count 165 01/20/2024 COAGS: INR 1.0 11/06/2021 SED RATE/CRP: No results found for this basename: wsr:*,crp:* Assessment Active Hospital Problems Diagnosis Date Noted Status post total hip replacement, right 01/19/2024 Hospital Course/Operations/Procedures: 01/19/2024 Procedure(s): ARTHROPLASTY TOTAL HIP CONVERSION AFTER PREVIOUS HIP SURG INPATIENT ATTENDING: Dr. Manzanares, Nash Cole MD, Elective High-Risk Geriatric Patient Vulnerabilities: Delirium Risk, Impaired Functional Status, and Impaired Mobility Diet: DIET CARBOHYDRATE CONTROLLED Recommendations: Cognition: No Cognitive Impairment bCAM Score (Calc): Negative Delirium Screen Geriatric Consult (Age over 85 or impaired cognition):Consult not needed Palliative Care/Hospice: Consult not required Rehab/Therapy: PT/OT Recommendations: PT: Recommended Discharge Disposition: Subacute/SNF OT: Recommended Discharge Disposition: Subacute/SNF Swallow: Swallow Screening Result - Step 2: PASSED Swallow Screen - Patient Able To Swallow 3 Ounce Cup of Water Without Exhibiting Signs Of Aspiration Speech Recommendations: Speech: Speech Diet: Nutrition: Consult to Nutrition Therapy Nutrition Recommendations: MST: Total MST Score (Calculated): 0 Quality Consultant: Pharmacy: Consult not needed Social Work: Social Work Consulted Anticipated Discharge Disposition: SNF Jeremy Mcnair MD PGY 3 Orthopaedic Surgery Resident Pager #: [phone] 01/21/2024 6:12 AM Please page [phone] from 5p-6a and on weekends for any issues. THERAPY NT Observed: 01/20/2024 4:15 PM Status: COMPLETED Source: [facility]NO ID: [id number] Author: SHYANN PURI PT Service: Physical Therapy Author Type: Circle Edger Type: Therapy (PT/OT/Speech/Resp) Filed: 01/20/2024 16:59 Note Text: Attestation signed by Shyann Puri PT at 01/20/2024 4:59 PM I reviewed and agree with the documentation corresponding to this therapy visit. SIGNATURE: Shyann Puri PT DATE: January 20, 2024 TIME: 4:59 PM Physical Therapy Treatment Summary SERVICE DATE: 01/20/2024 SERVICE TIME: 1455 to 1520 ROOM: [id number] PT 6 Clicks Score: 15 DISCHARGE RECOMMENDATIONS Subacute/SNF Recommended Discharge Disposition Comments: Patient functioning below baseline, recommend SNF at discharge Recommended Discharge Disposition Due to: Functional deficits requiring ongoing therapy service prior to discharge home., Functional status decline ASSESSMENT Response to Therapy Interventions: Good Participation in Activities, Pain, Requires Additional Time to Complete Activities, Improved Tolerance for Activity Patient continues to require hands-on assist for all exercises, transfers, and ambulation. Progressing towards physical therapy goals with increased time and effort. Continue to recommend longterm facility level therapies at discharge. PRECAUTIONS Fall Risk, Hip Precautions - Posterior Dislocation, Weight Bearing Restrictions Right Lower Extremity Weight Bearing Status: WBAT CURRENT HOSPITAL COURSE 78 y.o female s/p R [place] 01/18 Relevant Past Medical History: DM2, HTN, neuropathy HOME LIVING Patient Lives With: Family Assistance Available: 24-Hour Entry To Home: Stairs, With Rail Number Of Stairs Into Home: 3 Number Of Stairs To Bed/Bath: 0 Tub/Shower Type: tub shower Laundry: family can complete Equipment Owned: Walker- Wheeled, Cane, Shower Chair, Grab Bars- Shower, Finish Mender PRIOR FUNCTIONAL LEVEL Required Assistance Assistance Required With: Shopping, Transportation Patient reports ambulating with 2 canes, recently started using walker, independent with ADLs, however difficulty getting in/out of tub, family assists with IADLs SUBJECTIVE Pt pleasant and agreeable to PT THERAPY DIAGNOSIS Reduced mobility-other, Muscle Weakness (generalized), Unsteadiness on feet, General symptoms and signs-other TREATMENT INTERVENTIONS Therapeutic Exercise (78002), Gait Training (27050) Timed Code Treatment (minutes): 25 Skilled Treatment Time (minutes): 25 Therapeutic Exercise (44530) Treatment Minutes: 16 $ Therapeutic Exercise (71199) Billed Units: 1 unit Patient completed right total hip arthroplasty protocol (ankle pump, quad set, gluteal set, heel slide, hip abd/add to neutral, short arc quad, long arc quad, hip adductor squeeze) x 10 reps with minimal amount of assist. Educated patient on posterior hip precautions. Patient recalls 1/3 hip precautions Patient reports 4/10 pain. Patient set up with ice to surgical hip and elevated lower extremity as needed. Gait Training (17919) Treatment Minutes: 9 $ Gait Training (74483) Billed Units: 1 unit Challenged patient to increase ambulation distance this session. Verbal cues for sequencing of front wheel walker, right lower extremity, and in left lower extremity. Verbal cues to increase spacing between self and front wheel walker frame. See grid below for more details. TRAINING AND EDUCATION PROVIDED Assistive Device Use, Bed Mobility, Benefits of In-Hospital Mobility, Discharge Planning, Expected Functional Level, Exercise Program, Falls Prevention, Gait Pattern, Reduction of Deviations, Positioning, Precautions/Restrictions, Role of Physical Therapy, Home Safety, Home Set-up/Modifications, Pre-gait Activities, Transfers, Standing Balance THERAPEUTIC SKILLS USED Activity Dosing, Cues for Sequencing/Proper Technique for Activity, Cuing Tactile, Cuing Verbal, Movement Facilitation, Physical Assist, Postural Alignment Correction, Cuing Visual FUNCTIONAL STATUS mobility performed during session in bold, other mobility completed during prior session and may no longer be correct or appropriate to complete. Bed Mobility Supine To Sit: Moderate Assistance, Additional Information Scooting: Moderate Assistance, Additional Information Transfers Sit To Stand: Minimal Assistance, Additional Information Verbal cues to keep right lower extremity slid slightly forward past the left lower extremity. Verbal cues to scoot towards the edge of the chair and for proper hand positioning. X 1 from the recliner Stand To Sit: Minimal Assistance, Additional Information Verbal cues for body positioning to the recliner. Encourage patient to keep right lower extremity slide forward. Verbal cues to reach back 1 hand at a time, push hips back, and sit slowly while exhaling. Bed to Chair Gait Minimal Assistance, Additional Information Verbal cues to increase heel strike and toe off as needed. Cues for upright posture and forward gaze as patient was often looking at her feet. Challenged patient to increase ambulation distance. X 1 verbal cue for during directional changes to prevent patient from twisting and pivoting through surgical joint. Gait Device: Wheeled Walker General Deviations/Observations: Antalgic gait, Elvia decreased, Flexed trunk posture, Step length decreased Gait Distance (feet): 25ftx2 Stairs GOALS Patient will demonstrate progress to optimize functional mobility, maximize activity tolerance and endurance to maximize function upon discharge. Able to Perform HEP with: Verbal Cues Only Transfer Supine to/from Sit with: Contact Guard Assistance Transfer Sit to/from Stand with: Contact Guard Assistance Ambulate with: Contact Guard Assistance Distance: 30' x 2 Device: Wheeled Walker Ambulate Up and Down Curb Step with: Contact Guard Assistance Device: Wheeled Walker Ambulate Up and Down Steps with: Contact Guard Assistance Number of Steps: 4 Device: Rail, Cane Transfer: stepping bed to/from chair with CGA using wheeled walker Rehab Potential: Good Progress Toward Goals: Progressing as expected PLAN PT Frequency: Twice Daily Treatment Interventions: Education, Energy Conservation Training, Joint Mobility, Strengthening, Functional Mobility Training SIGNATURE: Yogi Ingram PTA PATIENT NAME: Audra Archer DATE: January 20, 2024 TIME: 4:15 PM CASE MGT JONATHAN KABA Observed: 01/20/2024 2:48 PM Status: COMPLETED Source: [facility] HNO ID: [id number] Author: FLORES MURRAY RN Service: Care Management Author Type: Registered Nurse Type: Care Mgt Initial Assessment Filed: 01/20/2024 14:56 Note Text: CARE MANAGEMENT: ASSESSMENT AND DISCHARGE PLAN NO WEEKEND DISCHARGE SERVICE DATE: January 20, 2024 SERVICE TIME: 2:49 PM PCP: Bryson Hernandez MD Primary Contact: Extended Emergency Contact Information Primary Emergency Contact: Marry Francis Address: [address] [place] [address] Mobile Relation: Daughter Admission Status: Inpatient Insurance Provider: [employer] MEDICARE HMO Discharge Planning requested by: Per Department Practice Potential Transition Plans Longterm Facility/Intermediate Care Facility Advance Directives Current Advance Directive: Health Care Power of Cake Tester;Living Will In Chart: Yes Up To Date and Valid: Yes Current Living Arrangements and Support Lives with: Family members Type of Residence: Private Residence (House) Does the patient have to climb stairs at home?: Yes;stairs outside the home;stairs within the home Support: Other: See Comment dtr and son in law How do you manage to accomplish the following: Independent: Ambulation;Bathe/Shower;Dress;Meals/Meal Prep;Going to the bathroom;Medication Management;Transportation to appointments/community Current Services/Equipment Current Post-Acute Service(s): DME Current DME Type: Cane, Walker, Shower seat Discharge Planning Patient Goal(s): Be able to go home, General wellness [place] Explained: [place] Given: Yes Level of Care Discussed: Longterm Facility (patient [facility]) Are you interested in bedside delivery of your medications? Yes Discharge Planning Participant(s): Patient Transport at Discharge: Transportation Arrangements: Ambulance Transportation Agency and Phone #:: [facility] ( [facility] ) [phone] / [phone] Type of Service: BLS Non-emergency Plant Attendant Or Assistant Operator Location: [facility] Destination: to be determined Needs Prior to Discharge: Needs Prior to Discharge: Accepting Facility;Bed Availability;Precertification;Discharge Transportation;Insurance Authorization Post-Acute Discharge Plan: Chart reviewed and spoke with patient at bedside. Patient lives with daughter, son in law and granddaughter, has steps to get into home. Independent of ADL's, medication management, and transportatrion. DME's shower chair, cane, and walker. Has had HC before but patient is unsure of company used. PT=SNF, patients FOC is [facility]- referral sent. Need medical clearance, accepting facility, bed availability, attestation letter, 7000, precert, d/c transport, and d/c packet. CM to follow. Please see Treatment Team for Care Management Weekend/Holiday coverage. SIGNATURE: Flores Murray RN PATIENT NAME: Audra Archer DATE: January 20, 2024 TIME: 2:48 PM CONTACT #: [phone] THERAPY NT Observed: 01/20/2024 11:40 AM Status: COMPLETED Source: [facility] HNO ID: [id number] Author: GURPREET IRAHETA OTR/Jovanny Service: Occupational Therapy Author Type: Occupational Therapist Type: Therapy (PT/OT/Speech/Resp) Filed: 01/20/2024 11:42 Note Text: Occupational Therapy Evaluation Summary SERVICE DATE: 01/20/2024 SERVICE TIME: 928 to 955 ROOM: [place] [address] OT 6 Clicks Score: 16 DISCHARGE RECOMMENDATIONS Subacute/SNF Recommended Discharge Disposition Due to: Functional deficits requiring ongoing therapy service prior to discharge home., ADL impairment ASSESSMENT Response to Therapy Interventions: Good Participation in Activities PRECAUTIONS Fall Risk, Hip Precautions - Posterior Dislocation, Weight Bearing Restrictions Right Lower Extremity Weight Bearing Status: WBAT CURRENT HOSPITAL COURSE 78 y.o female s/p R [place] 01/18 Relevant Past Medical History: DM2, HTN, neuropathy HOME LIVING Patient Lives With: Family Assistance Available: 24-Hour Entry To Home: Stairs, With Rail Number Of Stairs Into Home: 3 Number Of Stairs To Bed/Bath: 0 Tub/Shower Type: tub shower Laundry: family can complete Equipment Owned: Walker- Wheeled, Cane, Shower Chair, Grab Bars- Shower, Finish Mender PRIOR FUNCTIONAL LEVEL Required Assistance Assistance Required With: Shopping, Transportation Patient reports ambulating with 2 canes, recently started using walker, independent with ADLs, however difficulty getting in/out of tub, family assists with IADLs Baseline Cognition: Oriented to self, Oriented to place, Oriented to time, Oriented to situation SUBJECTIVE agreeable to OT COGNITION Responsiveness: Alert, Awake Follows Commands: 3-step Commands THERAPY DIAGNOSIS Decreased activities of daily living (ADL), Reduced mobility-other TREATMENT INTERVENTIONS Evaluation, Therapeutic Activity (27701) Timed Code Treatment (minutes): 12 Skilled Treatment Time (minutes): 27 $ Evaluation - Low (30042) Billed Units: 1 unit Therapeutic Activity (76866) Treatment Minutes: 12 $ Therapeutic Activity (97980) Billed Units: 1 unit Instructed patient from sit to stand at wheeled walker and provided minimal physical assist and cues for proper hand placement and fall prevention (fall guarding). Provided education on safe walker navigation and fall prevention for functional mobility within room and back to bedside chair. Provided cues and physical assist for safe hand placement for stand to sit. Reviewed posterior hip precautions with patient. Edu on LB dressing equipment (I.e. vp customer service/sock aide) to maintain precautions. TRAINING AND EDUCATION PROVIDED Activity Adaptation/Compensatory Strategies, Assistive Device Use, Benefits of In-Hospital Mobility, Discharge Planning, Disease Specific Education, Expected Functional Level, Functional Mobility Involving ADLs, Lower Extremity Dressing, Adaptive Equipment/DME, Role of Occupational Therapy, Precautions/Restrictions, Standing Balance to Improve [place] with ADLs/Self-Care, Transfer - Sit to Stand THERAPEUTIC SKILLS USED Activity Dosing, Cues for Sequencing/Proper Technique for Activity, Cuing Verbal, Movement Facilitation, Physical Assist, Therapeutic Use of Self, Teach-Back for Education FUNCTIONAL STATUS Activities of Daily Living Assist Level Additional Information Feeding Independent Grooming Set Up Bathing Upper Body Minimal Assistance Bathing Lower Body Moderate Assistance Dressing Upper Body Minimal Assistance Dressing Lower Body Maximal Assistance Toileting Moderate Assistance Mobility Assist Level Additional Information Bed Mobility Sit to Stand Minimal Assistance Stand to Sit Minimal Assistance Bed to Chair Toilet/Commode Shower Functional Mobility Minimal Assistance Functional Mobility Device: Wheeled Walker Range of Motion: WFL Strength: WFL BALANCE Static Standing Balance: Fair Dynamic Standing Balance: Fair GOALS Grooming with: Stand By Assistance (sink side) Upper Body Bathing with: Supervision Upper Body Dressing with: Supervision Lower Body Bathing with: Modified Independent (via AE) Lower Body Dressing with: Modified Independent (via AE) Toilet Hygiene with: Contact Guard Assistance Chair Transfer with: Contact Guard Assistance Toilet Transfer with: Contact Guard Assistance Tub Transfer with: Minimal Assistance Car Transfer with: Minimal Assistance Demonstrate Competence with Education with: Independent (posterior hip precautions) Rehab Potential: Good PLAN OT Frequency: 2 Times Per Week Treatment Interventions: Education, Self Care/Home Management, Functional Mobility Training, Balance Training SIGNATURE: FAYE Rothman/Jovanny PATIENT NAME: Audra Archer DATE: January 20, 2024 TIME: 11:40 AM THERAPY NT Observed: 01/20/2024 10:11 AM Status: COMPLETED Source: [facility] HNO ID: [id number] Author: REZA MIRANDA PT Service: Physical Therapy Author Type: Physical Therapist Type: Therapy (PT/OT/Speech/Resp) Filed: 01/20/2024 10:13 Note Text: Physical Therapy Evaluation Summary SERVICE DATE: 01/20/2024 SERVICE TIME: 846 ROOM: [id number] PT 6 Clicks Score: 12 DISCHARGE RECOMMENDATIONS Subacute/SNF Recommended Discharge Disposition Comments: Patient functioning below baseline, recommend SNF at discharge Recommended Discharge Disposition Due to: Functional deficits requiring ongoing therapy service prior to discharge home., Functional status decline ASSESSMENT Response to Therapy Interventions: Good Participation in Activities, Pain, Requires Additional Time to Complete Activities PRECAUTIONS Fall Risk, Hip Precautions - Posterior Dislocation, Weight Bearing Restrictions Right Lower Extremity Weight Bearing Status: WBAT CURRENT HOSPITAL COURSE 78 y.o female s/p R [place] 01/18 Relevant Past Medical History: DM2, HTN, neuropathy HOME LIVING Patient Lives With: Family Assistance Available: 24-Hour Entry To Home: Stairs, With Rail Number Of Stairs Into Home: 3 Number Of Stairs To Bed/Bath: 0 Tub/Shower Type: tub shower Laundry: family can complete Equipment Owned: Walker- Wheeled, Cane, Shower Chair, Grab Bars- Shower PRIOR FUNCTIONAL LEVEL Required Assistance Assistance Required With: Shopping, Transportation Patient reports ambulating with 2 canes, recently started using walker, independent with ADLs, however difficulty getting in/out of tub, family assists with IADLs SUBJECTIVE Patient pleasant and agreeable to PT session THERAPY DIAGNOSIS Reduced mobility-other, Muscle Weakness (generalized), Unsteadiness on feet, General symptoms and signs-other TREATMENT INTERVENTIONS Evaluation, Therapeutic Exercise (61463), Therapeutic Activity (05186) $ Evaluation-Moderate (82662) Billed Units: 1 unit Therapeutic Exercise (11414) Treatment Minutes: 13 $ Therapeutic Exercise (93553) Billed Units: 1 unit Patient completed right total hip arthroplasty protocol (ankle pump, quad set, gluteal set, heel slide, hip abd/add to neutral, short arc quad, long arc quad, hip adductor squeeze) x 10 reps with contact-min amount of assist. Educated patient on posterior hip precautions. Patient recalls 2/3 hip precautions Patient reports 4/10 pain. Patient set up with ice to surgical hip and elevated lower extremity as needed. Therapeutic Activity (55189) Treatment Minutes: 10 $ Therapeutic Activity (86260) Billed Units: 1 unit Cues/assist with functional mobility as listed in grid below. Requires increased time and assist to complete secondary to pain. Assisted with ambulation to/ BSC and to bedside chair, increased assist with transfers on/off commode and assist with daniel care. Timed Code Treatment (minutes): 23 Skilled Treatment Time (minutes): 38 TRAINING AND EDUCATION PROVIDED Assistive Device Use, Bed Mobility, Benefits of In-Hospital Mobility, Discharge Planning, Expected Functional Level, Exercise Program, Falls Prevention, Gait Pattern, Reduction of Deviations, Positioning, Precautions/Restrictions, Role of Physical Therapy, Transfers THERAPEUTIC SKILLS USED Activity Dosing, Cues for Sequencing/Proper Technique for Activity, Cuing Tactile, Cuing Verbal, Movement Facilitation, Physical Assist, Postural Alignment Correction FUNCTIONAL STATUS Bed Mobility Supine To Sit: Moderate Assistance, Additional Information HOb elevated, cues for sequencing, assist to move LE and assist trunk Scooting: Moderate Assistance, Additional Information assist with draw sheet to scoot hips forward Transfers Sit To Stand: Moderate Assistance, Additional Information cues for hand placement, R foot forward, power through LE Stand To Sit: Moderate Assistance, Additional Information cues for positioning, hand placement, R foot forward, assist to control descent Bed to Chair Gait Moderate Assistance, Additional Information cues for upright posture, step sequencing leading forward with RLE, walker proximity, slow non functional elvia Gait Device: Wheeled Walker General Deviations/Observations: Antalgic gait, Elvia decreased, Flexed trunk posture, Non-functional gait speed, Shuffling Gait, Step length decreased Gait Distance (feet): 6' x 2 Stairs ROM ROM Limitation Comments: R hip within limitations of precautions STRENGTH Right Lower Extremity Strength Comments: +LAQ Left Lower Extremity Strength Comments: WFL BALANCE Static Sitting Balance: Good Dynamic Sitting Balance: Good Static Standing Balance: Fair Dynamic Standing Balance: Fair ACTIVITY TOLERANCE Standing Activity: ambulation GOALS Patient will demonstrate progress to optimize functional mobility, maximize activity tolerance and endurance to maximize function upon discharge. Able to Perform HEP with: Verbal Cues Only Transfer Supine to/from Sit with: Contact Guard Assistance Transfer Sit to/from Stand with: Contact Guard Assistance Ambulate with: Contact Guard Assistance Distance: 30' x 2 Device: Wheeled Walker Ambulate Up and Down Curb Step with: Contact Guard Assistance Device: Wheeled Walker Ambulate Up and Down Steps with: Contact Guard Assistance Number of Steps: 4 Device: Rail, Cane Transfer: stepping bed to/from chair with CGA using wheeled walker Rehab Potential: Good PLAN PT Frequency: Twice Daily Treatment Interventions: Education, Energy Conservation Training, Joint Mobility, Strengthening, Functional Mobility Training SIGNATURE: Reza Miranda, SHANNAN PATIENT NAME: Audra Archer DATE: January 20, 2024 TIME: 10:11 AM ALLIED HEALTH Observed: 01/20/2024 8:33 AM Status: COMPLETED Source: [facility] HNO ID: [id number] Author: MABLE PORTILLO RN Service: Nursing Author Type: Registered Nurse Type: Allied Health Filed: 01/20/2024 08:34 Note Text: ANCILLARY ORTHOPEDIC GLAZIER [employer]URN[employer]URE PROGRESS NOTE SERVICE DATE: 01/20/2024 SERVICE TIME: 08 Met with patient at bedside, she is doing well, pain is managed, ready to get up as she hasn't been up out of bed yet. She is planning discharge to SNF, would like to go to [facility] as she has been there before. Has all DME needs at home. I will discuss with CM. SIGNATURE: Mable Portillo RN PATIENT NAME: Audra Archer DATE: January 20, 2024 TIME: 8:33 AM PAGER/CONTACT #: [phone] PROGRESS Observed: 01/20/2024 6:06 AM Status: COMPLETED Source: [facility] HNO ID: [id number] Author: NASH MANZANARES MD Service: Orthopaedic Surgery Author Type: Physician Type: Progress Notes Filed: 01/20/2024 12:30 Note Text: I evaluated the patient and personally participated in the richards components. I agree with the resident's findings and plan with the following revisions and/or additions: up in chair. Pain controlled. Awaiting precert for [facility]. Signature: Nash Manzanares MD Service Date: 01/20/2024 Service Time: 12:29 PM Orthopaedic Surgery Inpatient Progress Note Assessment Audra Archer is a 78 year old female who is POD #1 status-post R [place]. Plan - Management per orthopaedics - Pain control - Regular diet, advance as tolerated - PT/OT: Weight bearing as tolerated right Lower extremity - DVT: SCDs, Aspirin 81mg BID x 21 days - Post-operative antibiotics: Ancef 2g Q8H x 2 doses - Maintain Mepilex dressing x 7 days - Post operative imaging: AP pelvis Disposition: Pending PT/OT recommendations and pain control, anticipate 1-2 days, Rehab preapproved Subjective No acute events overnight. Pain controlled. No fevers, chills, chest pain, or shortness of breath. No new complaints. Physical Examination Vitals BP 120/61 Pulse 78 Temp 36.4 ?C (97.5 ?F) (Oral) Resp 19 Ht 165.1 cm (5' 5) Wt 95.7 kg (211 lb) SpO2 97% BMI 35.11 kg/m? General Alert and oriented. No acute distress. Cooperative with interview. Right Lower Extremity Dressing c/d/i Alignment normal. No gross deformities. No swelling, ecchymosis, or erythema. No open wounds or lacerations. SILT Galindo/Sa/DP/SP/T. Motor intact EHL/DF/PF. DP/PT pulses palpable; BCR all digits. Labs Recent Labs 01/20/24 0010 NA 137 K 4.7 CHLOR 102 CO2 22 BUN 17 CREAT 1.06* GLUC 230* ANION 13 CA 8.3* WBC 13.07* HB 11.2* HCT 34.7* PLT 165 Imaging XR pelvis demonstrates R [place] in overall acceptable position Samuel Friedman MD January 20, 2024 6:07 AM INPATIENT ATTENDING: Dr. Manzanares, Nash Cole MD, Elective High-Risk Geriatric Patient Vulnerabilities: Impaired Mobility Diet: DIET CARBOHYDRATE CONTROLLED Recommendations: Cognition: No Cognitive Impairment bCAM Score (Calc): Negative Delirium Screen Geriatric Consult (Age over 85 or impaired cognition):Consult not needed Palliative Care/Hospice: Consult not required Rehab/Therapy: PT/OT Recommendations: PT: OT: Swallow: Speech Recommendations: Speech: Speech Diet: Nutrition: Consult not required Nutrition Recommendations: MST: Total MST Score (Calculated): 0 Quality Consultant: Pharmacy: Consult not needed Social Work: NA Anticipated Discharge Disposition: Pending CONSULT Observed: 01/20/2024 12:29 AM Status: COMPLETED Source: [facility] HNO ID: [id number] Author: RHONDA SINGH MD Service: Hospital Medicine Author Type: Physician Type: Consults Filed: 01/20/2024 04:40 Note Text: DEPARTMENT OF HOSPITAL MEDICINE INITIAL CONSULT SERVICE DATE: 01/20/2024 SERVICE TIME: 12:30 AM Primary Care Physician: Bryson Hernandez MD NIGHT AND WEEKEND COVERAGE: Sound Admitting Physician REASON FOR CONSULT: medical management of DM2 REQUESTING PHYSICIAN: Dr Nash Manzanares Subjective CHIEF COMPLAINT: Right hip pain HPI: This is a 78 year old female with type 2 diabetes mellitus on home insulin who presented with right hip pain due to osteoarthritis, underwent removal of previously placed hardware and total hip arthroplasty. She denies chest pain, shortness of breath or fever/chills. She is tolerating oral intake well. She takes Toujeo max U300 insulin glargine 30 units SQ at bedtime. No available glucose trend during this admission. Is the Patient Experiencing Pain: Yes: PAIN CHARACTER: dull PAST MEDICAL HISTORY No date: Angina pectoris (HCC) No date: Depression No date: GERD (gastroesophageal reflux disease) No date: HLD (hyperlipidemia) No date: HTN (hypertension) No date: Neuropathy Comment: bilateral feet No date: Right hip pain No date: Type 2 diabetes mellitus (HCC) Comment: insulin dependent PAST SURGICAL HISTORY No date: L'SCOPE CHOLECYSTECTOMY No date: PAST SURGICAL HISTORY OF Comment: C5 and C6 fusion with titanium No date: TOTAL ABDOM HYSTERECTOMY 11/07/2021: TX INTER/NY/SUBTRCHNTRIC FEMORAL FX SCREW IMPLT; Right FAMILY HISTORY Problem Relation Age of Onset Diabetes Mother Heart Mother Lung Cancer Mother Social History Tobacco Use Smoking status: Former Current packs/day: 0.00 Average packs/day: 3.0 packs/day for 45.0 years (135.0 ttl pk-yrs) Types: Cigarettes Start date: 12/1961 Quit date: 12/2006 Years since quittin.0 Smokeless tobacco: Never Vaping Use Vaping status: Never Used Substance Use Topics Alcohol use: Not Currently Drug use: Never MEDICATIONS: Reviewed LOW-DOSE ASPIRIN ORAL, 81 mg once daily., Disp: , Rfl: , 01/18/2024 insulin lispro (HUMALOG U-100 INSULIN) 100 unit/mL injection, Inject subcutaneously three times a day before meals., Disp: , Rfl: , 01/18/2024 TOUJEO MAX U-300 SOLOSTAR 300 unit/mL (3 mL) inpn, Inject 30 Units subcutaneously daily at bedtime., Disp: , Rfl: amLODIPine (NORVASC) 5 mg tablet, Take 5 mg by mouth once daily., Disp: , Rfl: , 01/19/2024 at 0530 carvedilol (COREG) 6.25 mg tablet, Take 6.25 mg by mouth two times a day with meals., Disp: , Rfl: , 01/19/2024 at 0530 citalopram hydrobromide (CELEXA) 10 mg tablet, Take 10 mg by mouth once daily., Disp: , Rfl: , 01/18/2024 isosorbide mononitrate ER (IMDUR) 30 mg 24 hr tablet, Take 30 mg by mouth once daily., Disp: , Rfl: , 01/19/2024 at 30 omeprazole (PRILOSEC) 40 mg capsule, Take 40 mg by mouth two times a day., Disp: , Rfl: , 01/19/2024 at 0530 pregabalin (LYRICA) 150 mg capsule, Take 150 mg by mouth three times daily., Disp: , Rfl: buprenorphine (BUTRANS) 20 mcg/hour transdermal patch, 1 Patch one time a week., Disp: , Rfl: DEXCOM G7 SENSOR beth, as directed., Disp: , Rfl: calcium-cholecalciferol, D3, (OSCAL+D 250) 250 mg-3.125 mcg (125 unit) per tablet, Take 2 tablets by mouth once daily., Disp: 60 tablet, Rfl: 2 lisinopril (ZESTRIL, PRINIVIL) 10 mg tablet, Take 10 mg by mouth once daily., Disp: , Rfl: nitroglycerin sublingual (NITROQUICK) 0.4 mg SL tablet, Dissolve 0.4 mg under the tongue every 5 minutes as needed for chest pain., Disp: , Rfl: , Unknown metFORMIN (GLUCOPHAGE) 500 mg tablet, Take 1 tablet by mouth twice daily with meals., Disp: 30 tablet, Rfl: 1 Current Facility-Administered Medications Medication Dose Route Frequency amLODIPine 5 mg tab(s) (NORVASC) 5 mg ORAL DAILY carvedilol 6.25 mg tab(s) (COREG) 6.25 mg ORAL BID w MEALS citalopram 10 mg tab(s) (CeleXA) 10 mg ORAL DAILY isosorbide mononitrate ER 30 mg tab(s) (IMDUR) 30 mg ORAL DAILY nitroglycerin sublingual 0.4 mg tab(s) (NITROQUICK) 0.4 mg SUBLINGUAL q 5 MIN PRN buprenorphine transdermal patch 20 mcg/hr (BUTRANS) 1 Patch TRANSDERMAL 1/WK lisinopril 10 mg tab(s) (ZESTRIL) 10 mg ORAL DAILY metFORMIN 500 mg tab(s) (GLUCOPHAGE) 500 mg ORAL BID w MEALS pregabalin 150 mg cap(s) (LYRICA) 150 mg ORAL TID oxyCODONE IR 5 mg tab(s) (ROXICODONE) 5 mg ORAL q 3 H PRN ondansetron 4 mg tab(s) (ZOFRAN) 4 mg ORAL q 6 H PRN Or ondansetron (PF) 4 mg injection (ZOFRAN) 4 mg INTRAVENOUS q 6 H PRN magnesium hydroxide 400 mg/5 mL 30 mL (MOM) 30 mL ORAL DAILY PRN [START ON 01/21/2024] bisacodyl EC 10 mg tab(s) (DULCOLAX) 10 mg ORAL DAILY aluminum-magnesium hydroxide-simethicone 200-200-20 mg/5 mL 30 mL 30 mL ORAL q 2 H PRN ferrous sulfate 325 mg tab(s) 325 mg ORAL DAILY WITH BREAKFAST ascorbic acid (vitamin C) 500 mg tab(s) (VITAMIN C) 500 mg ORAL BID w MEALS senna 17.2 mg tab(s) (SENOKOT) 17.2 mg ORAL AT BEDTIME ceFAZolin iv piggyback 2 g in D5W (iso-osmotic) 100 mL (ANCEF) 2 g INTRAVENOUS q 8 HR aspirin, enteric coated 81 mg tab(s) 81 mg ORAL BID NaCl 0.9% iv infusion 75 mL/hr INTRAVENOUS CONTINUOUS morphine 2 mg injection 2 mg INTRAVENOUS q 2 H PRN acetaminophen 650 mg tab(s) (TYLENOL) 650 mg ORAL TID pantop[address]ole [address] 40 mg tab(s) (PROTONIX) 40 mg ORAL DAILY (6 AM) NaCl 0.9% iv flush bag 20 mL INTRAVENOUS PRN insulin glargine U-300 conc inpn 25 Units (TOUJEO MAX) 25 Units SUBCUTANEOUS AT BEDTIME dextrose 15 gram/32 mL 15 g (TRUEPLUS) 15 g ORAL PRN Or glucagon 1 mg injection 1 mg INTRAMUSCULAR PRN Or dextrose 10% iv bolus 12.5 g INTRAVENOUS PRN insulin lispro injection (rapid acting) (ADMElog) SUBCUTANEOUS w MEALS insulin lispro injection (rapid acting) (ADMElog) SUBCUTANEOUS AT BEDTIME . ALLERGIES Allergen Reactions Tetanus And Diphthe* Other: See Comments dizziness Ciprofloxacin GI Upset Codeine Other: See Comments Tolerated oxycodone October 2021 Metformin Hives vomiting Neosporin [Benzalko* Rash Dgfsvko-Biz-Kes Red* Other: See Comments Sulfa (Sulfonamide * Other: See Comments REVIEW OF SYSTEMS: BODY JOINER: no history of BODY JOINER disease RESP: no history of pulmonary disease CARD: history of HTN GI: no history of GI disease RENAL: no history of renal disease ENDO: history of diabetes without secondary complications HEME: no history of hematologic disease RHEUM: no history of rheumatologic disease PSYCHIATRIC: no history of psychiatric disease Objective PHYSICAL EXAM: BP 105/47 Pulse 70 Temp (Src) 98.1 (Oral) Resp 17 Ht 5' 5 (1.65m) Wt 211 lb (95.7kg) SpO2 96% BMI 35.11 kg/(m2). O2 Therapy: Room Air, Liters: 2 Physical Exam Performed: GENERAL: Alert, no distress, cooperative, AOx3 SKIN: Skin color, texture, turgor normal. No rashes or lesions. HEAD/SINUSES: No significant findings EYES/EARS/NOSE: PERRLA, EOMI. External ears normal, canals clear. Nares normal, septum midline. OROPHARYNX: Lips, mucosa, and tongue normal. Teeth and gums normal. Oropharynx normal. NECK: No jugulovenous distention, No carotid bruits, Carotid pulse normal contour, Supple LUNGS: Lungs clear to auscultation, Good diaphragmatic excursion CARDIAC: Normal S1 and S2; no rubs, murmurs, or gallops ABDOMEN: Abdomen soft, non-tender, BS normal, No masses or organomegaly EXTREMITIES: Extremities normal, no deformities, edema, clubbing or skin discoloration. Good capillary refill., No ulcers NEURO: Gait normal. Reflexes normal and symmetric. Sensation grossly intact, Cranial nerves II-XII intact The remainder of the physical exam is noncontributory. Lines, Drains, and Airways Line Duration Peripheral 01/19/24 0945 Short Right Hand 22 Gauge <1 day Peripheral 01/19/24 1257 Left Hand 20 Gauge <1 day Reviewed lines and needs to be continued: REASONS: Intravenous fluids DATA: Diagnostic tests reviewed for today's visit: Most recent labs and imaging results. Impression/Recommendations Principal Problem: Status post total hip replacement, right (POA: Yes) Management per primary Type 2 diabetes mellitus Start with insulin glargine U3 125 units Add sliding scale insulin Adjust doses as necessary to meet inpatient goals Hypertension Systolic 100-120s Continue home Coreg, amlodipine, lisinopril, Imdur Obesity Class III (BMI +/>40 or >35 with comorbidity) VTE PROPHYLAXIS: As per primary team Disposition: To be determined Plan of care discussed with: Provider, RN, Patient SIGNATURE: Rhonda Singh MD PATIENT NAME: Audra Archer DATE: January 20, 2024 TIME: 12:30 AM BAS METAB 2000 PNL SERPL Collected: 12:10 AM Status: F Source: [facility] Order Comment: Specimen Type : BLOOD SPECIMEN Ordering Facility: [facility] Address: [place] [address] TYPE CODE TESTS RESULT OUT OF RANGE REFERENCE UNITS LAB 2345-7(LOINC) Glucose SerPl-mCnc 230 High 74-99 mg/dL Result Comment: The [place] Diabetes Association (ADA) provides guidance for cutoff values for fasting glucose and random glucose. The ADA defines fasting as no caloric intake for at least 8 hours. Fasting plasma glucose results between 100 to 125 mg/dL indicate increased risk for diabetes (prediabetes). Fasting plasma glucose results greater than or equal to 126 mg/dL meet the criteria for diagnosis of diabetes. In the absence of unequivocal hyperglycemia, results should be confirmed by repeat testing. In a patient with classic symptoms of hyperglycemia or hyperglycemic crisis, random plasma glucose results greater than or equal to 200 mg/dL meet the criteria for diagnosis of diabetes. Reference: Standards of Medical Care in Diabetes 2016, [place] Diabetes Association. Diabetes Care. 2016.39(Suppl 1). LAB 3094-0(LOINC) BUN SerPl-mCnc 17 7-21 mg/ dL LAB 2160-0(LOINC) Creat SerPl-mCnc 1.06 High 0.58-0.96 mg/dL LAB 2951-2(LOINC) Sodium SerPl-sCnc 137 136-144 mmol/L LAB 2823-3(LOINC) Potassium SerPl-sCnc 4.7 3.7-5.1 mmol/L LAB 2075-0(LOINC) Chloride SerPl-sCnc 102 98-107 mmol/L LAB 2027-9(LOINC) CO2 SerPl-sCnc 22 22-30 mmo l/L LAB 1863-0(LOINC) Anion Gap4 SerPl-sCnc 13 8-15 mmol/L LAB 44297-6(LOINC) Calcium SerPl-mCnc 8.3 Low 8.5-10.2 mg/dL LAB 53381-5(LOINC) Creatinine + eGFR Pnl SerPlBld 54 Low >=60 mL/min/1. 73m??? Result Comment: Estimated Gl omerular Filtration Rate (eGFR) is calculated using the 2020 CKD-EPI creatinine equation. This equation utilizes serum creatinine, sex, and age as parameters. The creatinine assay has traceable calibration to isotope dilution-mass spectrometry. Refer to KDIGO guidelines for clinical interpretation. In patients with unstable renal function, e.g. those with acute kidney injury, the eGFR may not accurately reflect actual GFR. Performed By: #### [id number] # ### [facility] CLIA [id number] [address] CBC PNL BLD AUTO Collected: 01/20/2024 12:10 AM Stat us: F Source: [facility] Order Comment: Specimen Type : BLOOD SPECIMEN Ordering Facility: [facility] Address: [address] [place] [address] TYPE CODE TESTS RESULT OUT OF RANGE REFERENCE UNITS LAB 6690-2(LOINC) WBC # Bld Auto 13.07 High 3.70-11.00 k/uL LAB 789-8(LOINC) RBC # Bld Auto 3.70 Low 3.90-5.20 m/ uL LAB 718-7(LOINC) Hgb Bld-mCnc 11.2 Low 11.5-15.5 g/dL LAB 4544-3(LOINC) Hct VFr Bld Auto 34.7 Low 36.0-46.0 % LAB 787-2(LOINC) MCV RBC Auto 93.8 80.0-100.0 fL LAB 785-6(LOINC) MCH RBC Qn Auto 30.3 26.0-34.0 pg LAB 786-4(LOINC) MCHC RBC Auto-mCnc 32.3 30.5-36.0 g/dL LAB 62451-5(LOINC) RDW RBC-Rto 13.4 11.5-15.0 % LAB 777-3(LOINC) Platelet # Bld Auto 165 150-400 k/uL LAB 72926-8(LOINC) PMV Bld Auto 11.2 9.0-12.7 fL LAB 771-6(LOINC) nRBC # Bld Auto <0.01 <0.01 k/uL Performed By: #### [id number] # ### [facility] CLIA [id number] [address] #### 68889-2 #### [facility] CLIA [id number] [address] [place] DEPRECATED HGB A1C BLD Collected: 01/19 12:10 AM Status: F Source: [facility] Order Comment: Specimen Type : BLOOD SPECIMEN Ordering Facility: [facility] Address: [address] [place] [address] TYPE CODE TESTS RESULT OUT OF RANGE REFERENCE UNITS LAB 4548-4(LOINC) HbA1c MFr Bld 6.5 High 4.3-5.6 % Result Comment: [place] betes Association guidelines indicate that patients with HgbA1c in the range 5.7-6.4% are at increased risk for development of diabetes, and intervention by lifestyle modification may be beneficial. HgbA1c greater or equal to 6.5% is considered diagnostic of diabetes. LAB 55511-6(LOINC) Est. average glucose Bld gHb Est-mCnc 140 mg/dL Result Comment: eAG: (Estima alicia average glucose) is a calculated value from HgbA1c and is sales representative leather goods of the average blood glucose level in the last 2-3 month period. Performed By: #### 36277-8 # ### [facility] CLIA [id number] [address] [place] #### 23728-8 #### [facility] CLIA [id number] [facility] [place] [address] [place] NURSING PROG Observed: 01/19/2024 6:02 PM Status: COMPLETED Source: [facility] HNO ID: [id number] Author: YAEL REYNOSO RN Service: Nursing Author Type: Registered Nurse Type: Nursing Progress Note Filed: 01/19/2024 18:02 Note Text: The pt is resting in no distress at this time. She is still waiting for her room to be cleaned on the floor ANES POSTPROC EVAL Observed: 01/19/2024 4:38 PM Status: COMPLETED Source: [facility] HNO ID: [id number] Author: ZAIDA HANDY MD Service: Anesthesiology Author Type: Anesthesiologist Type: Anesthesia Postprocedure Evaluation Filed: 01/20/2024 14:20 Note Text: POST ANESTHESIA EVALUATION NOTE : 1945 Procedure Summary Date: 01/19/24 Room / Location: [facility] OR 07 / [facility] OR Anesthesia Start: 1236 Anesthesia Stop: 153 Procedure: ARTHROPLASTY TOTAL HIP CONVERSION AFTER PREVIOUS HIP SURG (Right) Diagnosis: Primary osteoarthritis of right hip (Primary osteoarthritis of right hip [M16.11]) Surgeons: Nash Manzanares MD Responsible Provider: Zaida aHndy MD Anesthesia Type: general ASA Status: 3 Anesthesia Type: general Airway Type: ETT Last Vitals Vitals Value Taken Time BP 100/44 01/19/241999 Temp 36.6 ?C (97.9 ?F) 01/19/24 1639 HR SpO2 85 01/19/242058 Resp 18 01/19/242057 SpO2 98 % 01/19/242058 Vitals shown include unfiled device data. Post Anesthesia Patient Status Anticipated Disposition: inpatient floor planned admission. Neurological Status: aware and responsive. Pulmonary Status: breathing comfortably on room air Airway Control: returned to baseline unsupported. Cardiovascular Status: stable. Pain Management: clinically adequate Postoperative Hydration: acceptable. Intraoperative Events: no significant anesthesia events Post Operative Nausea/Vomiting Status: no significant post operative nausea or vomiting Recommendation: further care per PACU/ICU/floor team. Anesthesia Observations No Documentation SIGNATURE: Zaida Handy MD PATIENT NAME: Audra Archer DATE: January 20, 2024 TIME: 2:18 PM CSN: [id number] THERAPY NT Observed: 01/19/2024 4:20 PM Status: COMPLETED Source: [facility] HNO ID: [id number] Author: RICARDA RIVAS PT Service: Physical Therapy Author Type: Physical Therapist Type: Therapy (PT/OT/Speech/Resp) Filed: 01/19/2024 16:20 Note Text: PHYSICAL THERAPY MISSED VISIT SERVICE DATE: 01/19/2024 SERVICE TIME: 1600 [facility] Patient not seen due to Clinical Appropriateness (pt has only been out of sx [id number] min; still waking up). Will see tomorrow morning SIGNATURE: Ricarda Rivas PT PATIENT NAME: Audra Archer DATE: January 19, 2024 TIME: 4:20 PM HCV RNA SERPL ANUEL+PROBE-ACNC Collected: 01/19/2024 4:12 PM Status: F Source: [facility] Order Comment: Specimen Type : BLOOD SPECIMEN Ordering Facility: [facility] Address: [place] [address] TYPE CODE TESTS RESULT OUT OF RANGE REFERENCE UNITS LAB 21991-6(LOINC) HIV 1+2 Ab+HIV1 p24 Ag SerPl Ql IA Nonreactive Nonreactive Result Comment: [place] Rev. Co de 3701.243(E): This information has been disclosed to you from confidential records protected from disclosure by state law. ???You shall make no further disclosure of this information without the specific, written, and informed release of the individual to whom it pertains or as otherwise permitted by state law. A general authorization for the release of medical or other information is not sufficient for the purpose of the release of HIV test results or diagnoses. Test methodology for this assay has moved from Siemens Centaur XP to [employer] patricia 8000 effective February 23, 2022. Please note there may be a change in the reporting units and/or reference range. LAB 51834-6(LOINC) HIV 1 AND 2 Ab SerPlBld IA.rapid Result Comment: Test not ind icated. LAB 75426-2(LOINC) HIV IA algorithm interp SerPlBld-Imp Result Comment: No evidence of HIV-1 or HIV-2 infection. Should recent infection be suspected, repeat testing may be considered 2-3 weeks after this draw. LAB 5195-3(LOINC) HBV surface Ag Ser Ql Nonreactive Nonreactive LAB 90848-7(INC) HCV Ab Ser Ql Nonreactive Nonreac tive Result Comment: The result s uggests no evidence of active infection with Hepatitis C virus. Should recent infection be suspected, repeat testing may be considered 4- 6 weeks after this draw. Performed By: #### 74933-2 # ### [facility] CLIA [id number] [address] [place] [address] [place] XR PELVIS 1V AP Observed: 01/19/2024 4:03 PM Status: F Source: [facility] * * *Final Report* * * DATE OF EXAM: Jan 19 2024 4:03PM AKX 5239 - XR PELVIS 1V AP / PROCEDURE REASON: Post-operative / post-procedure assessment * * * * Physician Interpretation * * * * XR PELVIS 1V AP01/19/2024 4:03 PM CLINICAL HISTORY: Post-operative / post-procedure assessment COMPARISON: Hip radiograph 01/19/2024 TECHNIQUE: XR PELVIS 1V AP RESULT: Interval postsurgical changes of total right hip arthroplasty. Hardware appears intact. Remainder the osseous structures are unremarkable. Postoperative fluid and gas surrounding the right hip joint. IMPRESSION: Interval postoperative changes of right total hip arthroplasty. Systems Management Consultant: [facility] Transcribe Date/Time: Jan 19 2024 4:10P Dictated by : RONNI YU MD This examination was interpreted and the report reviewed and electronically signed by: RONNI YU MD on Jan 19 2024 4:11PM EST [id number] XR HIP 1V RT Observed: 01/19/2024 3:13 PM Status: F Source: [facility] * * *Final Report* * * DATE OF EXAM: Jan 19 2024 3:13PM AKO 5278 - XR HIP 1V RT / PROCEDURE REASON: RIGHT TOTAL HIP ARTHROPLASTY * * * * Physician Interpretation * * * * EXAM TITLE: XR HIP 1V RT DATE: 01/19/2024 INDICATION: Supine view of the pelvis to assess right hip prosthesis alignment. COMPARISON: None. AP view the pelvis shows right hip prosthesis template in expected position. Surgical sponge is seen within the operative site. IMPRESSION: Procedure films for assessment of right hip prosthesis alignment. Systems Management Consult[facility]: [facility] Transcribe Date/Time: Jan 19 2024 3:42P Dictated by : JAMES DIAMOND MD This examination was interpreted and the report reviewed and electronically signed by: JAMES DIAMOND MD on Jan 19 2024 3:44PM EST [id number] PLAN OF CARE Observed: 01/19/2024 3:03 PM Status: COMPLETED Source: [facility] HNO ID: [id number] Author: JEREMY CROSS MD Service: Orthopaedic Surgery Author Type: Resident Type: Plan of Care Filed: 01/19/2024 15:04 Note Text: Orthopaedic surgery plan of care: Assessment: 78 yo female POD0 R [place] Plan: - Management per orthopaedics - Pain control - Regular diet, advance as tolerated - PT/OT: Weight bearing as tolerated right Lower extremity - DVT: SCDs, Aspirin 81mg BID x 21 days - Post-operative antibiotics: Ancef 2g Q8H x 2 doses - Maintain Mepilex dressing x 7 days - Post operative imaging: AP pelvis Disposition: Pending PT/OT recommendations and pain control, anticipate 1-2 days, Rehab preapproved Jeremy Cross MD Orthopaedic Surgery 01/19/2024 3:04 PM BRIEF OP NOT Observed: 01/19/2024 2:59 PM Status: COMPLETED Source: [facility] HNO ID: [id number] Author: NASH MANZANARES MD Service: Orthopaedic Surgery Author Type: Physician Type: Brief Op Note Filed: 01/19/2024 15:00 Note Text: BRIEF OPERATIVE / PROCEDURE NOTE TOTAL HIP ARTHROPLASTY LOG ID: [id number] Surgery/Procedure Date: 01/19/2024 Incision/Procedure Start Time: 1:11 PM Incision Close/Procedure End Time: Surgeon(s)/Proceduralist(s) and Turkey Pinner(s): Surgeons and Role: * Nash Manzanares MD - Primary * Jeremy Cross MD - Resident - Assisting Stonecutter Hand: Cj Porter SA Procedure(s): Procedure(s) (LRB): REMOVAL BURIED HARDWARE (Right) ARTHROPLASTY TOTAL HIP CONVERSION AFTER PREVIOUS HIP SURG (Right) Anesthesia: General Approach: Posterior Estimated Blood Loss: 150 mls Specimens: femoral head Complications: None Total Joint Arthroplasty (TJA) Surgical Risk Procedure: Not on file Date assessed: Not on file No data to display Closure Technique: Primary Implant: * No implants in log * Bearing Surface: Ceramic on Poly Fixation: Cemented Pre-Op/Pre-Procedure Diagnosis: 1. Primary osteoarthritis of right hip [M16.11] 2. Right hip fracture with routine healing Post-Op/Post-Procedure Diagnosis: SAME Weight Bearing Status: Full Weight Bearing SIGNATURE: Nash Manzanares MD PATIENT NAME: Audra Archer DATE: January 19, 2024 TIME: 2:59 PM SURGICAL PATHOLOGY Collected: 01/19/2024 2:42 PM Sta tus: F Source: [facility] Order Comment: Specimen Type : TISSUE SPECIMEN Ordering Facility: [facility] Address: [address] [place] [address] TYPE CODE TESTS RESULT OUT OF RANGE REFERENCE UNITS PATHOLOGY [id number] CASE REPORT Result Comment: Surgical Pat hology Report Case: [id number] Authorizing Provider: Nash Manzanares MD Collected: 01/19/2024 02:42 PM Ordering Location: [facility] Received: 01/20/2024 09:30 AM Pathologist: Blake Schneider MD Specimen: Femoral Head, Right PATHOLOGY [id number] FINAL DIAGNOSIS Result Comment: A. Femoral h ead, right: - Degenerative changes consistent with osteoarthritic disease. OLOGY [id number] GROSS DESCRIPTION Result Comment: A. Femoral H ead, Right Received in formalin labeled femoral head right is a specimen consisting of a femoral head measuring 5.7 x 5.6 x 5.5 cm. The articulating surface is roughened and displays areas of eburnation and osteophyte formation. Upon sectioning subchondral cysts and necrosis are not present. Soft tissue is not received with the specimen. Hardware Test Engineer sections are submitted in formalin and one cassette following a period of decalcification. Gross examination performed at [facility], [address] [place] [address] KVB January 20, 2024 1:20 PM PATHOLOGY CDX2 CLINICAL HISTORY Result Comment: Pre-op diagn osis: Primary osteoarthritis of right hip [M16.11] PATHOLOGY [facility] FINAL PERFORMING LAB Result Comment: Diagnostic i nterpretation performed at [facility], [address] [place] [address] CLIA# [id number] Science Analyst: Pablo Rowell M.D. Performed By: #### S #### [facility] CLIA [id number] [address] [place] [address] OF [place] ANES PROCEDURE NOTE Observed: 01/19/2024 1:23 PM Status: COMPLETED Source: [facility] HNO ID: [id number] Author: JUAN SUAREZ APRN.DIRECTOR FUNDRAISING Service: Anesthesiology Author Type: Nurse Combat Systems Operator Mine Warfare Type: Anesthesia Procedure Notes Filed: 01/19/2024 13:24 Note Text: ANESTHESIOLOGY PROCEDURE NOTE PIV General Information Procedure Start Time/Medication Administration: 01/19/2024 12:57 PM Procedure End Time: 01/19/2024 12:59 PM Patient Location: OR Staffing DIRECTOR FUNDRAISING: Juan Suarez APRN.DIRECTOR FUNDRAISING Performed by: DIRECTOR FUNDRAISING Preparation Sterility Preparation: hand hygiene performed prior to procedure, surgical cap used, mask used Sterility Technique Not Completely Performed Due to Extreme Emergency: No Site Prep: alcohol Procedure Details Indication: need for IV access Needle Size/Type: 20 gauge angiocath Orientation: Left Location: Hand Imaging Guidance Used: No SIGNATURE: Juan Suarez APRN.CRNA PATIENT NAME: Audra Archer DATE: January 19, 2024 TIME: 1:23 PM CSN: [id number] ANES PROCEDURE NOTE Observed: 01/19/2024 1:19 PM Status: COMPLETED Source: [facility] HNO ID: [id number] Author: JUAN SUAREZ APRN.CRNA Service: Anesthesiology Author Type: Nurse Combat Systems Operator Mine Warfare Type: Anesthesia Procedure Notes Filed: 01/19/2024 13:25 Note Text: ANESTHESIOLOGY PROCEDURE NOTE Airway General Information Procedure Start Time/Medication Administration: 01/19/2024 12:49 PM Procedure End Time: 01/19/2024 12:54 PM Patient location during procedure: OR Timeout Performed Pre-procedure: timeout performed Consent Obtained: Yes Patient identity confirmed: arm band and patient Staffing DIRECTOR FUNDRAISING: Juan Suarez APRN.DIRECTOR FUNDRAISING SRNA: Ranulfo Gleason SRNA Performed by: ABI Indications and Patient Condition Indications for airway management: anesthesia Preoxygenated: yes Patient position: sniffing Method: asleep Difficult Mask: No Final Airway Details Final airway type: endotracheal airway Final Endotracheal Airway: ETT Cuffed: yes Successful intubation technique: direct laryngoscopy Devices used: intubating stylet Endotracheal tube insertion site: oral Blade: Krupa Blade size: #4 ETT size (mm): 7.0 Measured from: lips Measurement (cm): 21 Placement verified by: chest auscultation and capnometry Cormack-Lehane Classification: grade IIa - partial view of glottis Number of attempts at approach: 1 Airway not difficult Comments For this procedure, I was physically present for this entire procedure. Juan Suarez APRN.DIRECTOR FUNDRAISING SIGNATURE: Juan Suarez APRN.DIRECTOR FUNDRAISING PATIENT NAME: Audra Archer DATE: January 19, 2024 TIME: 1:19 PM CSN: [id number] OPERATIVE NO Observed: 01/19/2024 12:35 PM Status: COMPLETED Source: [facility] HNO ID: [id number] Author: NASH MANZANARES MD Service: Orthopaedic Surgery Author Type: Physician Type: Operative Report Filed: 01/19/2024 16:53 Note Text: OPERATIVE REPORT TOTAL HIP ARTHROPLASTY LOG ID: [id number] Surgery/Procedure Date: 01/19/2024 Incision/Procedure Start Time: 1:11 PM Incision Close/Procedure End Time: 3:13 PM Surgeon(s)/Proceduralist(s) and Turkey Pinner(s): Surgeons and Role: * Nash Manzanares MD - Primary * Jeremy Cross MD - Resident - Assisting Stonecutter Hand: Cj Porter SA Procedure(s): Procedure(s) (LRB): REMOVAL BURIED HARDWARE (Right) ARTHROPLASTY TOTAL HIP CONVERSION AFTER PREVIOUS HIP SURG (Right) Anesthesia: General Procedure Details: The patient was brought to the operative theater where general endotracheal anesthesia was administered. Patient was turned to the LEFT lateral decubitus position and fixed into the pelvic kent. Pressure points were well-padded. The RIGHT hip was identified with an appropriate timeout prepped and draped in a sterile orthopedic fashion. We utilized a standard posterior lateral kocker-langenbach approach and incorporated part of her incision from her previous DHS insertion. Sharp dissection was carried out through subcutaneous tissues down to fascia. Fascial ángel and the fascia of Gluteus jeanmarie were sharply incised. 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 The hip was extended and internally rotated. The interval between the abductors and iliac wing was identified. A cobra retractor was placed in the interval to retract the abductors anteriorly. Electrocautery was then used to release the short external rotators and capsule from the posterior aspect of the hip joint in a full-thickness flap. This was carried distally down the level lesser trochanter and superiorly over the dome the ilium. A Steinmann pin was then placed in the iliac wing, above the acetabulum as an anterior retractor and leg length reference point. Satya was made on the femur and the [place] leg length and offset were measured. The hip was in dislocated posteriorly. Once the hip was mobilized we performed dissection to remove the DHS instrumentation. The proximal aspect of the vastus lateralis was split down to the plate. Plate was exposed with removal of the 2 cortical screws. The plate and then the DHS lag screw were removed without difficulty. Utilizing the neck osteotomy guide femoral neck cut was made delivering a very worn, arthritic femoral head. The acetabulum was then exposed with retractors. Capsule was released and labrum removed until the bony margins were circumferentially exposed. The acetabulum was then prepared with reamers until we had a good bleeding subchondral surface. This occurred at 49 MM, and we placed a 50 MM component, with excellent press fit and good abduction, anteversion position. Trial liner was placed and attention was turned to the femur. Femur was prepared with ECHO broaches in a standard fashion until we seated the size 11 broach. This was stable both axially and to torsion. Trial reductions were performed with the HIGH OFFSET neck and 36/+6 head. We had a very stable range of motion with good reproduction of leg length and offset correlating with our preoperative planning and intraoperative measurements. Intraoperative radiograph demonstrated good implant position, fit and fill. Trials were removed. On the acetabular side the 36 MM cross-link polyethylene liner was locked in. We then prepared the femur for cement. The canal was brushed plugged irrigated and dried. Cement was placed with a gun and digitally pressurized. The size 9 echo stem was then placed and held appropriate anteversion until the cement had cured. Care was placed to keep pressure over the screw holes to prevent extrusion of cement from her DHS hardware. Once the cement had cured we made a check for any excess cement particular along the lateral femur. The trunnion was then cleaned and dried and the ceramic head was applied. The hip was reduced a final time. Range of motion, leg length and offset were appropriate. The hip was then soaked with dilute Betadine. This was irrigated out and a final check made for hemostasis. Hip capsule was then closed with #1 Ethibond [id number] sutures. Piriformis tendon and obturator internus tendons were brought back to the hip abductor mechanism with a vertical Ethibond suture. Vastus lateralis fascia was closed over the DHS site utilizing a running #1 Vicryl suture. Fascia ángel was closed with #1 Ethibond. Fascia ángel and the fascia of gluteus jeanmarie were then oversewn with a running #2 Quill closing in a watertight fashion. Layered closure for the subcutaneous tissues with quill and then subsequently Monocryl subcuticular skin closure and Steri-Strips completed the procedure. Sterile dressing was applied. The patient was then turned to the supine position. Immobilized with a knee immobilizer. Extubated and sent to recovery room in satisfactory condition having tolerated procedure well. Preoperative IV antibiotics of ANCEF 2 grams, VANCOMYCIN 2 gram and tranexamic acid for hemostasis were given intravenously. 50 cc NEAL injection Pre-Op/Pre-Procedure Diagnosis: 1. Primary osteoarthritis of right hip [M16.11] 2. Healed right hip intertrochanteric fracture. Post-Op/Post-Procedure Diagnosis: SAME Estimated Blood Loss: 200 mls Specimens: Femoral Head Implant: Implant Name Type Inv. Item Serial No. [employer]S [employer] Coach Lot No. LRB No. Used Action SHELL G7 50 MM D OFFSET HEMISPHERE OSSEOTI ACETABULAR 3 HOLE LIMIT HIP - [id number] Joint - Hip SHELL G7 50MM D OFFSET HEMISPHERE OSSEOTI ACETABULAR 3 HOLE LIMIT HIP [employer] [id number] Right 1 Implanted G7 VIVACIT-E ACETABULAR LINER SIZE D 36MM Implant [facility] [id number] Right 1 Implanted CENTRALIZER VERSYS 11MM PMMA STEM CEMENTED STERILE HIP DISTAL - [id number] Joint - Hip CENTRALIZER VERSYS 11MM PMMA STEM CEMENTED STERILE HIP DISTAL [employer] [id number] Right 1 Implanted STEM ECHO FX 9MM LATERAL OFFSET COCR FEMORAL HIP - [id number] Joint - Hip STEM ECHO FX 9MM LATERAL OFFSET COCR FEMORAL HIP [employer] [id number] Right 1 Implanted HEAD G7 36MM BIOLOX DELTA FEMORAL HIP - [id number] Joint - Hip HEAD G7 36MM BIOLOX DELTA FEMORAL HIP [employer] [id number] Right 1 Implanted SLEEVE G7 +6MM OFFSET TAPER BI[employer]OX DELTA CENTERING TYPE 1 OPTION HIP - [id number] Joint - Hip SLEEVE G7 +6MM OFFSET TAPER BIOLOX DELTA CENTERING TYPE 1 OPTION HIP [employer] [id number] Right 1 Implanted RESTRICTOR TRIANA 18.5MM 18.5 CEMENT STERILE LATEX FREE FEMUR HIP - [id number] Joint RESTRICTOR TRIANA 18.5MM 18.5 CEMENT STERILE LATEX FREE FEMUR HIP [employer] [id number] Right 1 Non-Implant CEMENT SIMPLEX P TOBRAMYCIN BONE FULL DOSE RADIOPAQUE PREBLEND STERILE - [id number] Cement / Putty CEMENT SIMPLEX P TOBRAMYCIN BONE FULL DOSE RADIOPAQUE PREBLEND STERILE [employer] [id number] Right 1 Implanted CEMENT SIMPLEX P TOBRAMYCIN BONE FULL DOSE RADIOPAQUE PREBLEND STERILE - [id number] Cement / Putty CEMENT SIMPLEX P TOBRAMYCIN BONE FULL DOSE RADIOPAQUE PREBLEND STERILE [employer] [id number] Right 1 Implanted Bearing Surface: Ceramic on Poly Fixation: Cemented Complications: None Participation in Procedure: I/primary surgeon/proceduralist performed the procedure with assistance. SIGNATURE: Nash Manzanares MD PATIENT NAME: Audra Archer DATE: January 19, 2024 TIME: 4:48 PM PAGER/CONTACT #: NURSING PROG Observed: 01/19/2024 10:18 AM Status: COMPLETED Source: [facility] HNO ID: [id number] Author: CRISS LISA RN Service: Nursing Author Type: Registered Nurse Type: Nursing Progress Note Filed: 01/19/2024 10:20 Note Text: Room [address] Andre that this pt has a scratch on sternum, originally said it was from a cat, then said maybe she scratched herself. States it was 2 weeks ago. Scab formed and does not look infected. Dr Andre to assess ANES PRE-OP Observed: 01/19/2024 9:16 AM Status: COMPLETED Source: [facility] HNO ID: [id number] Author: ZAIDA HANDY MD Service: Anesthesiology Author Type: Anesthesiologist Type: Anesthesia Preprocedure Evaluation Filed: 01/19/2024 12:18 Note Text: ANESTHESIOLOGY DAY OF SURGERY NOTE : 1945 Procedure Information Date/Time: 01/19/24 1125 Procedures: ARTHROPLASTY REPLACE JOINT TOTAL HIP (Right: Hip) REMOVAL BURIED HARDWARE (Right: Hip) Location: [facility] OR / [facility] OR Surgeons: Nash Manzanares MD Estimated body mass index is 35.18 kg/m? as calculated from the following: Height as of 01/13/24: 165.1 cm (5' 5). Weight as of 01/13/24: 95.9 kg (211 lb 6.4 oz). Most recent hematocrit and potassium results: Hematocrit 40.5 12/30/2023 Potassium 4.2 12/30/2023 Relevant Problems ANESTHESIA (+) PABLO (obstructive sleep apnea) CARDIO (+) Arteriosclerosis of coronary artery (+) Hypertension GI (+) Gastroesophageal reflux disease -RENAL (+) Stage 3 chronic kidney disease (HCC) (+) Stage 3b chronic kidney disease (HCC) PULMONARY (+) PABLO (obstructive sleep apnea) - LBBB - HTN on amlodipine and imdur and coreg - took today - DM on insulin I - PHYSICAL EVALUATION AIRWAY Patient intubated: No. Tracheostomy tube not present Mallampati: III. TM distance: >3 FB. Neck ROM: full ROM without neurological symptoms. Mouth opening: adequate. Short neck: no. Thick neck: no DENTAL Dentures, upper: complete. II - ANESTHESIA PLAN ASA Score: 3 Anesthetic Plan: general Airway type: ETT The patient is not a current smoker. NPO Status: adequate Beta Ariel Monitoring Plan Monitoring plan: standard ASA. Post Procedure Analgesic Plan Postoperative analgesic plan: multimodal analgesia and parenteral or oral opioids. Informed Consent Anesthetic risks, benefits, alternatives, personnel and consent discussed: yes. Patient / Responsible Constitution Party agrees to proceed: yes Patient / Surrogate agrees to blood products: blood products not planned Potential Anesthesia issues that may suggest increased risk of complications or contraindication to planned procedure: none. No vitals data found for the desired time range. No current facility-administered medications on file as of 01/19/2024. Outpatient Medications as of 01/19/2024 Medication Sig LOW-DOSE ASPIRIN ORAL 81 mg once daily. buprenorphine (BUTRANS) 20 mcg/hour transdermal patch 1 Patch one time a week. DEXCOM G7 SENSOR beth as directed. calcium-cholecalciferol, D3, (OSCAL+D 250) 250 mg-3.125 mcg (125 unit) per tablet Take 2 tablets by mouth once daily. amLODIPine (NORVASC) 5 mg tablet Take 5 mg by mouth once daily. carvedilol (COREG) 6.25 mg tablet Take 6.25 mg by mouth two times a day with meals. citalopram hydrobromide (CELEXA) 10 mg tablet Take 10 mg by mouth once daily. isosorbide mononitrate ER (IMDUR) 30 mg 24 hr tablet Take 30 mg by mouth once daily. lisinopril (ZESTRIL, PRINIVIL) 10 mg tablet Take 10 mg by mouth once daily. nitroglycerin sublingual (NITROQUICK) 0.4 mg SL tablet Dissolve 0.4 mg under the tongue every 5 minutes as needed for chest pain. omeprazole (PRILOSEC) 40 mg capsule Take 40 mg by mouth once daily. pregabalin (LYRICA) 150 mg capsule Take 150 mg by mouth three times daily. metFORMIN (GLUCOPHAGE) 500 mg tablet Take 1 tablet by mouth twice daily with meals. I have interviewed and examined the patient. I have reviewed the medical record and/or the pre-anesthesia evaluation, pertinent labs, and test results. This contains updated information obtained within 48 hours of Surgery/Procedure. SIGNATURE: Zaida Handy MD PATIENT NAME: Audra Archer DATE: January 19, 2024 TIME: 9:16 AM CSN: [id number] [facility] Observed: 01/19/2024 8:50 AM Status: COMPLETED [facility] [id number] Author: TENZIN MITCHELL Chaplain Service: ? Author Type: Type: Allied Health Filed: 01/19/2024 09:38 Note Text: SPIRITUAL CARE PROGRESS NOTE SERVICE DATE: 01/19/2024 SERVICE TIME: 8:50 AM Coordinator Cardiopulmonary Services attended patient as referred for patient-requested prayer. Coordinator Cardiopulmonary Services also oriented patient and family to available spiritual care resources. Patient expressed gratitude. To contact the Spiritual Care Department: Please call [phone]. SIGNATURE: Chaplain Aarti PATIENT NAME: Audra Archer DATE: January 19, 2024 TIME: 9:34 AM PAGER/CONTACT #: [phone] CNPN Observed: 01/17/2024 12:00 AM Status: COMPLETED Source: [facility] Telephone ([id number]) AUDRA ARCHER ([id number]) 1945 F Date Time Provider Department [facility] During your visit today, we recorded the following information about you: Shama Yo 01/17/2024 9:59 AM Signed I called patient and talked to her. Procedure is scheduled for: 01-19-24 at: 11a Arrival time: 9a NPO after midnight. Please bring crutches, braces or slings if applicable. Shama Yo Allergies As of Date: 01/17/2024 Noted Allergy Reaction TETANUS AND DIPHTHER. TOX (PF) 01/13/2024 14 - Other: See Comments Comments: dizziness CIPROFLOXACIN 11/06/2021 8 - GI Upset CODEINE 11/05/2021 14 - Other: See Comments Comments: Tolerated oxycodone October 2021 METFORMIN 11/16/2021 4 - Hives Comments: vomiting NEOSPORIN (BENZALKONIUM CHLORIDE) 11/06/2021 2 - Rash [id number] REDUCTASE INHIBIT*11/05/2021 14 - Other: See Comments SULFA (SULFONAMIDE ANTIBIOTICS) 11/05/2021 14 - Other: See Comments Date Reviewed: 01/13/2024 Reviewed by: Julio Blum LPN - Fully Assessed Prescriptions as of 01/17/2024 - LOW-DOSE ASPIRIN ORAL 81 mg once daily. - insulin lispro (HUMALOG U-100 INSULIN) 100 unit/mL injection Inject subcutaneously three times a day before meals. - TOUJEO MAX U-300 SOLOSTAR 300 unit/mL (3 mL) inpn Inject 30 Units subcutaneously daily at bedtime. - mupirocin (BACTROBAN) 2 % ointment Apply twice daily to each nostril for five days pre-operatively. Start on 01/14/2024. Patient should start on January 14, 2024. - buprenorphine (BUTRANS) 20 mcg/hour transdermal patch 1 Patch one time a week. - DEXCOM G7 SENSOR beth as directed. - calcium-cholecalciferol, D3, (OSCAL+D 250) 250 mg-3.125 mcg (125 unit) per tablet Take 2 tablets by mouth once daily. - amLODIPine (NORVASC) 5 mg tablet Take 5 mg by mouth once daily. - carvedilol (COREG) 6.25 mg tablet Take 6.25 mg by mouth two times a day with meals. - citalopram hydrobromide (CELEXA) 10 mg tablet Take 10 mg by mouth once daily. - isosorbide mononitrate ER (IMDUR) 30 mg 24 hr tablet Take 30 mg by mouth once daily. - lisinopril (ZESTRIL, PRINIVIL) 10 mg tablet Take 10 mg by mouth once daily. - nitroglycerin sublingual (NITROQUICK) 0.4 mg SL tablet Dissolve 0.4 mg under the tongue every 5 minutes as needed for chest pain. - omeprazole (PRILOSEC) 40 mg capsule Take 40 mg by mouth once daily. - pregabalin (LYRICA) 150 mg capsule Take 150 mg by mouth three times daily. - metFORMIN (GLUCOPHAGE) 500 mg tablet Take 1 tablet by mouth twice daily with meals. Problem List As Of Date 01/17/2024 Noted Resolved Intertrochanteric fracture of right femur, clos*11/05/2021 Obesity, Class II, BMI 35-39.9 [E66.9] 11/06/2021 Anemia, unspecified [D64.9] 12/13/2022 Stage 3b chronic kidney disease (HCC) [N18.32] 12/30/2023 Hypertension [I10] 12/30/2023 Hyperlipidemia [E78.5] 06/07/2023 Gastroesophageal reflux disease [K21.9] 12/30/2023 Diabetes mellitus (HCC) [E11.9] 12/30/2023 Depressive disorder [F32.A] 12/30/2023 Pain in right hip [M25.551] 12/22/2022 Stage 3 chronic kidney disease (HCC) [N18.30] 11/08/2022 Arteriosclerosis of coronary artery [I25.10] 12/30/2023 Class 1 obesity due to excess calories with bod*12/30/2023 PABLO (obstructive sleep apnea) [G47.33] 12/30/2023 Tobacco abuse [Z72.0] 12/30/2023 Encounter Status:Closed by SHAMA YO on 01/17/24 PROGRESS Observed: 01/13/2024 10:53 AM Status: COMPLETED Source: [facility] HNO ID: [id number] Author: NASH MANZANARES MD Service: ? Author Type: Physician Type: Progress Notes Filed: 01/13/2024 10:57 Note Text: ORTHOPAEDIC OFFICE NOTE HISTORY OF PRESENT ILLNESS: Audra Archer is a 78 year old female who presents for Follow-up of her end-stage right hip arthritis. Comes in today with her daughter for her final preop visit. Looking forward to her surgery. Having pain continuously that has been unresponsive to changes in pain management by her family physician. Walks with her walker. Rest and night pain. Reviewed nursing note and current pain scale. PAST MEDICAL HISTORY No date: Angina pectoris (HCC) No date: Depression No date: GERD (gastroesophageal reflux disease) No date: HLD (hyperlipidemia) No date: HTN (hypertension) No date: Neuropathy Comment: bilateral feet No date: Right hip pain No date: Type 2 diabetes mellitus (HCC) Comment: insulin dependent PAST SURGICAL HISTORY No date: L'SCOPE CHOLECYSTECTOMY No date: PAST SURGICAL HISTORY OF Comment: C5 and C6 fusion with titanium No date: TOTAL ABDOM HYSTERECTOMY 11/07/2021: TX INTER/NY/SUBTRCHNTRIC FEMORAL FX SCREW IMPLT; Right FAMILY HISTORY Problem Relation Age of Onset Diabetes Mother Heart Mother Lung Cancer Mother Social History Tobacco Use Smoking status: Former Current packs/day: 0.00 Average packs/day: 3.0 packs/day for 45.0 years (135.0 ttl pk-yrs) Types: Cigarettes Start date: 12/1961 Quit date: 12/2006 Years since quittin.0 Smokeless tobacco: Never Vaping Use Vaping status: Never Used Substance Use Topics Alcohol use: Not Currently Drug use: Never MEDICATIONS: Current Outpatient Medications Medication Sig LOW-DOSE ASPIRIN ORAL 81 mg once daily. insulin lispro (HUMALOG U-100 INSULIN) 100 unit/mL injection Inject subcutaneously three times a day before meals. TOUJEO MAX U-300 SOLOSTAR 300 unit/mL (3 mL) inpn Inject 30 Units subcutaneously daily at bedtime. [START ON 01/14/2024] mupirocin (BACTROBAN) 2 % ointment Apply twice daily to each nostril for five days pre-operatively. Start on 01/14/2024. Patient should start on January 14, 2024. buprenorphine (BUTRANS) 20 mcg/hour transdermal patch 1 Patch one time a week. DEXCOM G7 SENSOR beth as directed. calcium-cholecalciferol, D3, (OSCAL+D 250) 250 mg-3.125 mcg (125 unit) per tablet Take 2 tablets by mouth once daily. amLODIPine (NORVASC) 5 mg tablet Take 5 mg by mouth once daily. carvedilol (COREG) 6.25 mg tablet Take 6.25 mg by mouth two times a day with meals. citalopram hydrobromide (CELEXA) 10 mg tablet Take 10 mg by mouth once daily. isosorbide mononitrate ER (IMDUR) 30 mg 24 hr tablet Take 30 mg by mouth once daily. lisinopril (ZESTRIL, PRINIVIL) 10 mg tablet Take 10 mg by mouth once daily. nitroglycerin sublingual (NITROQUICK) 0.4 mg SL tablet Dissolve 0.4 mg under the tongue every 5 minutes as needed for chest pain. omeprazole (PRILOSEC) 40 mg capsule Take 40 mg by mouth once daily. pregabalin (LYRICA) 150 mg capsule Take 150 mg by mouth three times daily. metFORMIN (GLUCOPHAGE) 500 mg tablet Take 1 tablet by mouth twice daily with meals. No current facility-administered medications for this visit. ALLERGIES: ALLERGIES Allergen Reactions Tetanus And Diphthe* Other: See Comments dizziness Ciprofloxacin GI Upset Codeine Other: See Comments Tolerated oxycodone October 2021 Metformin Hives vomiting Neosporin [Benzalko* Rash Kdapbur-Ptu-Nde Red* Other: See Comments Sulfa (Sulfonamide * Other: See Comments PHYSICAL EXAMINATION: Resp 20 Ht 5' 5 (1.65m) Wt 211 lb 6.4 oz (95.9kg) BMI 35.18 kg/(m2). General Appearance: Well appearing, alert, in no acute distress, well-hydrated, well nourished. Skin: Skin color, texture, turgor normal, no suspicious rashes or lesions. Extremities: In the seated position she has hip flexion 90 degrees. 0 degrees of internal and 0 degrees of external rotation with associated pain. Well-healed lateral incision. IMAGES: Prior radiographs were reviewed demonstrating her healed intertrochanteric fracture with retained DHS. End-stage arthritis of the right hip. Osteopenia noted. ASSESSMENT AND PLAN: 1. Arthritis of right hip - ICD9: 716.95, ICD10: M16.11 (primary diagnosis) 2. Intertrochanteric fracture of right hip, sequela - ICD9: 905.3, ICD10: S72.141S 3. Osteoporosis with current pathological fracture, unspecified osteoporosis type, sequela - ICD9: 905.5, 733.00, ICD10: M80.00XS Functional Plan: I reviewed with her and her daughter in detail again the risk, benefits and expected postoperative recovery of hip replacement surgery and concomitant hardware removal. She is planning on inpatient rehab in [place]. She is already had some tentative arrangements made through Dr. Hernandez, her family physician. She verbalized good understanding. All questions were answered to her apparent satisfaction and written consent was obtained. I will leave it open for them to call the office if any issues arise preoperatively. Return in 5 weeks (on 02/17/2024). Nash Manzanares MD CNOV Observed: 01/13/2024 9:45 AM Status: COMPLETED Source: [facility] Office Visit (AGHWW1) AUDRA ARCHER ([id number]) 1945 F Date Time Provider Department 01/13/24 9:45 AM NASH MANZANARES HWW1 During your visit today, we recorded the following information about you: Respiration Weight Height 20/minute 95.9 kg 1.651 m Nash Manzanares MD 01/13/2024 10:57 AM Signed ORTHOPAEDIC OFFICE NOTE HISTORY OF PRESENT ILLNESS: Audra Archer is a 78 year old female who presents for Follow-up of her end-stage right hip arthritis. Comes in today with her daughter for her final preop visit. Looking forward to her surgery. Having pain continuously that has been unresponsive to changes in pain management by her family physician. Walks with her walker. Rest and night pain. Reviewed nursing note and current pain scale. PAST MEDICAL HISTORY No date: Angina pectoris (HCC) No date: Depression No date: GERD (gastroesophageal reflux disease) No date: HLD (hyperlipidemia) No date: HTN (hypertension) No date: Neuropathy Comment: bilateral feet No date: Right hip pain No date: Type 2 diabetes mellitus (HCC) Comment: insulin dependent PAST SURGICAL HISTORY No date: L'SCOPE CHOLECYSTECTOMY No date: PAST SURGICAL HISTORY OF Comment: C5 and C6 fusion with titanium No date: TOTAL ABDOM HYSTERECTOMY 11/07/2021: TX INTER/NY/SUBTRCHNTRIC FEMORAL FX SCREW IMPLT; Right FAMILY HISTORY Problem Relation Age of Onset Diabetes Mother Heart Mother Lung Cancer Mother Social History Tobacco Use Smoking status: Former Current packs/day: 0.00 Average packs/day: 3.0 packs/day for 45.0 years (135.0 ttl pk-yrs) Types: Cigarettes Start date: 12/1961 Quit date: 12/2006 Years since quittin.0 Smokeless tobacco: Never Vaping Use Vaping status: Never Used Substance Use Topics Alcohol use: Not Currently Drug use: Never MEDICATIONS: Current Outpatient Medications Medication Sig LOW-DOSE ASPIRIN ORAL 81 mg once daily. insulin lispro (HUMALOG U-100 INSULIN) 100 unit/mL injection Inject subcutaneously three times a day before meals. TOUJEO MAX U-300 SOLOSTAR 300 unit/mL (3 mL) inpn Inject 30 Units subcutaneously daily at bedtime. [START ON 01/14/2024] mupirocin (BACTROBAN) 2 % ointment Apply twice daily to each nostril for five days pre-operatively. Start on 01/14/2024. Patient should start on January 14, 2024. buprenorphine (BUTRANS) 20 mcg/hour transdermal patch 1 Patch one time a week. DEXCOM G7 SENSOR beth as directed. calcium-cholecalciferol, D3, (OSCAL+D 250) 250 mg-3.125 mcg (125 unit) per tablet Take 2 tablets by mouth once daily. amLODIPine (NORVASC) 5 mg tablet Take 5 mg by mouth once daily. carvedilol (COREG) 6.25 mg tablet Take 6.25 mg by mouth two times a day with meals. citalopram hydrobromide (CELEXA) 10 mg tablet Take 10 mg by mouth once daily. isosorbide mononitrate ER (IMDUR) 30 mg 24 hr tablet Take 30 mg by mouth once daily. lisinopril (ZESTRIL, PRINIVIL) 10 mg tablet Take 10 mg by mouth once daily. nitroglycerin sublingual (NITROQUICK) 0.4 mg SL tablet Dissolve 0.4 mg under the tongue every 5 minutes as needed for chest pain. omeprazole (PRILOSEC) 40 mg capsule Take 40 mg by mouth once daily. pregabalin (LYRICA) 150 mg capsule Take 150 mg by mouth three times daily. metFORMIN (GLUCOPHAGE) 500 mg tablet Take 1 tablet by mouth twice daily with meals. No current facility-administered medications for this visit. ALLERGIES: ALLERGIES Allergen Reactions Tetanus And Diphthe* Other: See Comments dizziness Ciprofloxacin GI Upset Codeine Other: See Comments Tolerated oxycodone October 2021 Metformin Hives vomiting Neosporin [Benzalko* Rash Vkykvhc-Giw-Svk Red* Other: See Comments Sulfa (Sulfonamide * Other: See Comments PHYSICAL EXAMINATION: Resp 20 Ht 5' 5 (1.65m) Wt 211 lb 6.4 oz (95.9kg) BMI 35.18 kg/(m2). General Appearance: Well appearing, alert, in no acute distress, well-hydrated, well nourished. Skin: Skin color, texture, turgor normal, no suspicious rashes or lesions. Extremities: In the seated position she has hip flexion 90 degrees. 0 degrees of internal and 0 degrees of external rotation with associated pain. Well-healed lateral incision. IMAGES: Prior radiographs were reviewed demonstrating her healed intertrochanteric fracture with retained DHS. End-stage arthritis of the right hip. Osteopenia noted. ASSESSMENT AND PLAN: 1. Arthritis of right hip - ICD9: 716.95, ICD10: M16.11 (primary diagnosis) 2. Intertrochanteric fracture of right hip, sequela - ICD9: 905.3, ICD10: S72.141S 3. Osteoporosis with current pathological fracture, unspecified osteoporosis type, sequela - ICD9: 905.5, 733.00, ICD10: M80.00XS Functional Plan: I reviewed with her and her daughter in detail again the risk, benefits and expected postoperative recovery of hip replacement surgery and concomitant hardware removal. She is planning on inpatient rehab in [place]. She is already had some tentative arrangements made through Dr. Hernandez, her family physician. She verbalized good understanding. All questions were answered to her apparent satisfaction and written consent was obtained. I will leave it open for them to call the office if any issues arise preoperatively. Return in 5 weeks (on 02/17/2024). Nash Manzanares MD Allergies As of Date: 01/13/2024 Noted Allergy Reaction TETANUS AND DIPHTHER. TOX (PF) 01/13/2024 14 - Other: See Comments Comments: dizziness CIPROFLOXACIN 11/06/2021 8 - GI Upset CODEINE 11/05/2021 14 - Other: See Comments Comments: Tolerated oxycodone October 2021 METFORMIN 11/16/2021 4 - Hives Comments: vomiting NEOSPORIN (BENZALKONIUM CHLORIDE) 11/06/2021 2 - Rash EJGMUOT-GKM-UPK REDUCTASE INHIBIT*11/05/2021 14 - Other: See Comments SULFA (SULFONAMIDE ANTIBIOTICS) 11/05/2021 14 - Other: See Comments Date Reviewed: 01/13/2024 Reviewed by: Julio Blum LPN - Fully Assessed Reason for Visit: Pre-Op Visit [1235] Pain [78] Swelling [205] Primary Visit Diagnosis:Arthritis of right hip [M16.11] Other Visit Diagnoses:Intertrochanteric fracture of right hip, sequela [S72.141S] Osteoporosis with current pathological fracture, unspecified osteoporosis type, sequela [M80.00XS] Prescriptions as of 01/13/2024 - LOW-DOSE ASPIRIN ORAL 81 mg once daily. - insulin lispro (HUMALOG U-100 INSULIN) 100 unit/mL injection Inject subcutaneously three times a day before meals. - TOUJEO MAX U-300 SOLOSTAR 300 unit/mL (3 mL) inpn Inject 30 Units subcutaneously daily at bedtime. - mupirocin (BACTROBAN) 2 % ointment Apply twice daily to each nostril for five days pre-operatively. Start on 01/14/2024. Patient should start on January 14, 2024. - buprenorphine (BUTRANS) 20 mcg/hour transdermal patch 1 Patch one time a week. - DEXCOM G7 SENSOR beth as directed. - calcium-cholecalciferol, D3, (OSCAL+D 250) 250 mg-3.125 mcg (125 unit) per tablet Take 2 tablets by mouth once daily. - amLODIPine (NORVASC) 5 mg tablet Take 5 mg by mouth once daily. - carvedilol (COREG) 6.25 mg tablet Take 6.25 mg by mouth two times a day with meals. - citalopram hydrobromide (CELEXA) 10 mg tablet Take 10 mg by mouth once daily. - isosorbide mononitrate ER (IMDUR) 30 mg 24 hr tablet Take 30 mg by mouth once daily. - lisinopril (ZESTRIL, PRINIVIL) 10 mg tablet Take 10 mg by mouth once daily. - nitroglycerin sublingual (NITROQUICK) 0.4 mg SL tablet Dissolve 0.4 mg under the tongue every 5 minutes as needed for chest pain. - omeprazole (PRILOSEC) 40 mg capsule Take 40 mg by mouth once daily. - pregabalin (LYRICA) 150 mg capsule Take 150 mg by mouth three times daily. - metFORMIN (GLUCOPHAGE) 500 mg tablet Take 1 tablet by mouth twice daily with meals. Problem List As Of Date 01/13/2024 Noted Resolved Intertrochanteric fracture of right femur, clos*11/05/2021 Obesity, Class II, BMI 35-39.9 [E66.9] 11/06/2021 Anemia, unspecified [D64.9] 12/13/2022 Stage 3b chronic kidney disease (HCC) [N18.32] 12/30/2023 Hypertension [I10] 12/30/2023 Hyperlipidemia [E78.5] 06/07/2023 Gastroesophageal reflux disease [K21.9] 12/30/2023 Diabetes mellitus (HCC) [E11.9] 12/30/2023 Depressive disorder [F32.A] 12/30/2023 Pain in right hip [M25.551] 12/22/2022 Stage 3 chronic kidney disease (HCC) [N18.30] 11/08/2022 Arteriosclerosis of coronary artery [I25.10] 12/30/2023 Class 1 obesity due to excess calories with bod*12/30/2023 PABLO (obstructive sleep apnea) [G47.33] 12/30/2023 Tobacco abuse [Z72.0] 12/30/2023 Medications Discontinued During This Encounter Prescriptions - traMADol (ULTRAM) 50 mg tablet (Discontinued) Take 100 mg by mouth three times daily as needed for pain. Disposition: Return in 5 weeks (on 02/17/2024). Follow-up and Disposition History for Encounter Date Provider Department Center 01/13/2024 [id number]-VMRNQSNASH MANZANARES*AGHWW1 [facility] Letter Text Encounter Status:Closed by NASH MANZANARES on 01/13/24 PROGRESS Observed: 01/02/2024 8:03 AM Status: COMPLETED Source: [facility] HNO ID: [id number] Author: LAURITA LOYD APRN.[employer] PREPARATION WORKER Service: ? Author Type: Nurse Practitioner Type: Progress Notes Filed: 01/02/2024 08:06 Note Text: Summary: PAT Spoke to Irving at Dr. Hernadez's office to get a copy of the medical and cardiac optimization per PAT visit. Will have Olesya in CC follow up to retrieve a copy. TYPE AND SCREEN,30 DAY Collected: 12/30/2023 12:27 PM Status: F Source: [facility] Order Comment: Specimen Type : BLOOD SPECIMEN Ordering Facility: [facility] Address: [address] [place] [address] TYPE CODE TESTS RESULT OUT OF RANGE REFERENCE UNITS LAB [id number] ABO O LAB [id number] RH Negative LAB [id number] ANTIBODY SCREEN Negative LAB PREVAB HISTORICAL AB SCR STATUS NEGATIVE Performed By: #### [id number] ## ## [facility] CLIA [id number] [address] STATES OF [facility] COMP METAB 2000 PNL SERPL Collected: 12:27 PM Status: F Source: [facility] Order Comment: Specimen Type : BLOOD SPECIMEN Ordering Facility: [facility] Address: [address] [place] [address] TYPE CODE TESTS RESULT OUT OF RANGE REFERENCE UNITS LAB 2885-2(LOINC) Prot SerPl-mCnc 8.0 6.3-8.0 g/dL LAB 1751-7(LOINC) Albumin SerPl-mCnc 4.0 3.9-4.9 g/dL LAB 04946-7(LOINC) Calcium SerPl-mCnc 9.8 8.5-10.2 mg/dL LAB 1975-2(LOINC) Bilirub SerPl-mCnc 0.4 0.2-1.3 mg/dL LAB 6768-6(LOINC) ALP SerPl-cCnc 102 34-123 U/L LAB 55865-5(LOINC) AST SerPl w P-5'-P-cCnc 29 13-35 U/L LAB 1743-4(LOINC) ALT SerPl w P-5'-P-cCnc 19 7-38 U/L LAB 2345-7(LOINC) Glucose SerPl-mCnc 62 Low 74-99 mg/dL Result Comment: The [place] [employer] (ADA) provides guidance for cutoff values for fasting glucose and random glucose. The ADA defines fasting as no caloric intake for at least 8 hours. Fasting plasma glucose results between 100 to 125 mg/dL indicate increased risk for diabetes (prediabetes). Fasting plasma glucose results greater than or equal to 126 mg/dL meet the criteria for diagnosis of diabetes. In the absence of unequivocal hyperglycemia, results should be confirmed by repeat testing. In a patient with classic symptoms of hyperglycemia or hyperglycemic crisis, random plasma glucose results greater than or equal to 200 mg/dL meet the criteria for diagnosis of diabetes. Reference: Standards of Medical Care in Diabetes 2016, [place] [employer]. Diabetes Care. 2016.39(Suppl 1). LAB 3094-0(LOINC) BUN SerPl-mCnc 22 High 7-21 mg/ dL LAB 2160-0(LOINC) Creat SerPl-mCnc 1.07 High 0.58-0.96 mg/dL LAB 2951-2(LOINC) Sodium SerPl-sCnc 140 136-144 mmol/L LAB 2823-3(LOINC) Potassium SerPl-sCnc 4.2 3.7-5.1 mmol/L LAB 2075-0(LOINC) Chloride SerPl-sCnc 103 98-107 mmol/L LAB 2028-9(LOINC) CO2 SerPl-sCnc 27 22-30 mmo l/L LAB 1863-0(LOINC) Anion Gap4 SerPl-sCnc 10 8-15 mmol/L LAB 43439-9(LOINC) Creatinine + eGFR Pnl SerPlBld 53 Low >=60 mL/min/1. 73m??? Result Comment: Estimated Gl omerular Filtration Rate (eGFR) is calculated using the 2020 CKD-EPI creatinine equation. This equation utilizes serum creatinine, sex, and age as parameters. The creatinine assay has traceable calibration to isotope dilution-mass spectrometry. Refer to KDIGO guidelines for clinical interpretation. In patients with unstable renal function, e.g. those with acute kidney injury, the eGFR may not accurately reflect actual GFR. Performed By: #### [id number] # ### [facility] CLIA [id number] [address] [place] [address] [place] CBC PNL BLD AUTO Collected: 12/30/2023 12:27 PM Stat us: F Source: [facility] Order Comment: Specimen Type : BLOOD SPECIMEN Ordering Facility: [facility] Address: [address] [place] [address] TYPE CODE TESTS RESULT OUT OF RANGE REFERENCE UNITS LAB 6690-2(LOINC) WBC # Bld Auto 10.30 3.70-11.00 k/uL LAB 789-8(LOINC) RBC # Bld Auto 4.45 3.90-5.20 m/ uL LAB 718-7(LOINC) Hgb Bld-mCnc 13.6 11.5-15.5 g/dL LAB 4544-3(LOINC) Hct VFr Bld Auto 40.5 36.0-46.0 % LAB 787-2(LOINC) MCV RBC Auto 91.0 80.0-100.0 fL LAB 785-6(LOINC) MCH RBC Qn Auto 30.6 26.0-34.0 pg LAB 786-4(LOINC) MCHC RBC Auto-mCnc 33.6 30.5-36.0 g/dL LAB 99753-4(LOINC) RDW RBC-Rto 13.2 11.5-15.0 % LAB 777-3(LOINC) Platelet # Bld Auto 196 150-400 k/uL LAB 44533-9([facility]) PMV Bld Auto 11.5 9.0-12.7 fL LAB 771-6(LOINC) nRBC # Bld Auto <0.01 <0.01 k/uL Performed By: #### [id number] # ### [facility] CLIA [id number] [address] HISTORY PHYSICAL Observed: 12/30/2023 11:00 AM Status: COMPLETED Source: [facility] HNO ID: [id number] Author: LYUDMILA LEIVA APRN.POLYSILICON PREPARATION WORKER Service: ? Author Type: Nurse Practitioner Type: H&P Filed: 12/30/2023 12:37 Note Text: [facility] HISTORY AND PHYSICAL EXAMINATION SERVICE DATE: 12/30/2023 SERVICE TIME: 12:37 PM PRIMARY CARE PHYSICIAN: Bryson Hernandez MD [place] Activity Status Index: METS: Walk a block or two on level ground (2.75 METs) DASI Score: 2.75 (Limited activity walks with walker ) Clinical Frailty Scale: 3. Well, with treated comorbid disease ARISCAT Score: Age: 51-80 Preoperative SpO2: >=96% Respiratory infection in the last month: No Preoperative anemia: No Surgical incision: peripheral Duration of surgery: >3 hrs Emergency procedure: No ARISCAT Score: 26 ANESTHESIA FINDINGS: Intubation History: No history of difficult intubation Significant Anesthesia Considerations: none Airway History: No history of difficult airway I - PHYSICAL EVALUATION AIRWAY Patient intubated: No. DENTAL Dental findings: teeth intact and missing tooth/teeth. Dentures, upper: complete. II - ANESTHESIA PLAN Anesthetic Plan: general Beta Ariel Monitoring Plan Post Procedure Analgesic Plan Prepared for Surgery: CONSULTS: The following consults have been initiated at this time: cardiology (scheduled 01/10/2024) and primary care/internal medicine (scheduled 01/10/2024). Planned Anesthetic: general The Following Tests/Procedures Have Been Initiated: Orders Placed This Encounter Type and Screen, 30 day Standing Status: Future Number of Occurrences: 1 Standing Expiration Date: 03/30/2024 Order Specific Question: Hospital of Planned Surgery or Procedure: Answer: [facility] Order Specific Question: Status of surgery/procedure: Answer: Scheduled Order Specific Question: Date of surgery/procedure: Answer: 01/19/2024 LOW-DOSE ASPIRIN ORAL Si mg once daily. insulin lispro (HUMALOG U-100 INSULIN) 100 unit/mL injection Sig: Inject subcutaneously three times a day before meals. TOUJEO MAX U-300 SOLOSTAR 300 unit/mL (3 mL) inpn Sig: Inject 30 Units subcutaneously daily at bedtime. mupirocin (BACTROBAN) 2 % ointment Sig: Apply twice daily to each nostril for five days pre-operatively. Start on 01/14/2024. Patient should start on January 14, 2024. Dispense: 22 g Refill: 0 REASON FOR VISIT: Audra Archer is a 78 year old female who is scheduled for Procedure(s): ARTHROPLASTY REPLACE JOINT TOTAL HIP (Right) REMOVAL BURIED HARDWARE (Right) at the request of @REFPROV2@ for routine HANDP. My final recommendation will be communicated back to the requesting physician by way of shared medical record or letter. Implantable Devices: see existing implants Assessment/Plan PLAN Pre-op testing: Medical conditions which may affect the daniel-operative course were addressed in the visit today. 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 08/18/2023 Cardiac optimization pending Hyperlipidemia Unable to tolerate statins Hypertension Managed on norvac, and lisinopril BP 110/68 Pulmonary PABLO (obstructive sleep apnea) Tobacco abuse Hx of 135 pack years Quit 2006 Gastrointestinal Gastroesophageal reflux disease Well controlled on PPI Endocrinology Diabetes mellitus (HCC) Managed on diet, Humalog and Toujeo A1C 6.3 Relevant Medications LOW-DOSE ASPIRIN ORAL insulin lispro (HUMALOG U-100 INSULIN) 100 unit/mL injection TOUJEO MAX U-300 SOLOSTAR 300 unit/mL (3 mL) inpn Other Class 1 obesity due to excess calories with body mass index (BMI) of 34.0 to 34.9 in adult BMI 34.61 Other Visit Diagnoses Pre-op exam - Primary Relevant Orders TYPE AND SCREEN,30 DAY Primary osteoarthritis of right hip [M16.11] Procedure Diagnosis: Primary osteoarthritis of right hip [M16.11] Planned Procedure: Procedure(s): ARTHROPLASTY REPLACE JOINT TOTAL HIP (Right) REMOVAL BURIED HARDWARE (Right) Planned Anesthetic: General CONSULTS: The following consults have been initiated at this time: Primary Care/Internal Medicine for scheduled 01/10/2024 Cardiology Consult for cardiac clearance for angina. 01/10/2024 I spent a total of 60 minutes on the date of the service which included preparing to see the patient, pfew-al-paxz patient care, completing clinical documentation, obtaining and/or reviewing separately obtained history, performing a medically appropriate examination, counseling and educating the patient/family/caregiver, and ordering medications, tests, or procedures. The Following Tests/Procedures Have Been Initiated: TANDS, CMP, CBC ordered in Epic per surgeon. Bactroban ordered per [employer] ME[employer]TER. Subjective The patient has the following: ACTIVE PROBLEM LIST Intertrochanteric Fracture of Right Femur, Closed, Initial Encounter (Hcc) Obesity, Class II, Bmi 35-39.9 Anemia, Unspecified Stage 3b Chronic Kidney Disease (Hcc) Hypertension Hyperlipidemia Gastroesophageal Reflux Disease Diabetes Mellitus (Hcc) Depressive Disorder Pain in Right Hip Stage 3 Chronic Kidney Disease (Hcc) Arteriosclerosis of Coronary Artery Class 1 Obesity Due to Excess Calories With Body Mass Index (Bmi) of 34.0 to 34.9 in Adult Pablo (Obstructive Sleep Apnea) Tobacco Abuse COVID-19 Immunization Status Overdue - Covid-19 Vaccine ( season) Overdue since 01/21/2023 09/23/2021 Imm Admin: COVID-19 original vaccine, full dose, monovalent (MODERNA) 06/03/2021 Imm Admin: COVID-19 original vaccine, full dose, monovalent (MODERNA) 09/10/2020 Imm Admin: COVID-19 original vaccine, full dose, monovalent (MODERNA) Only the first 3 history entries have been loaded, but more history exists. CHIEF COMPLAINT: The reason for this visit is to perform a comprehensive review of the patient's past medical history, assess their current health status and obtain any additional testing required based on anesthesia guidelines. We will also identify any potential anesthesia problems or contraindications to the planned procedure. HPI: 78 yo WF with Primary osteoarthritis of right hip [M16.11], presents for PST for OR right total hip replacement with Dr Manzanares. States pain for approx one year, pain intense, worse with activity. Steroid injection with improvement for approx 6 weeks. Pain interferes with ADLs. Walks with walker or bilateral canes. Fracture right femur 2 years ago. REVIEW OF SYSTEMS: General: No weight loss, malaise or fevers. Negative for: unintentional weight change, malaise and fever. Neurological: Positive for: headaches (headaches from denture) and peripheral neuropathy. Negative for: seizures and strokes. Respiratory: Positive for: tobacco use, obstructive sleep apnea (non compliant with CPAP) and CPAP/BiPAP noncompliant. Negative for: asthma and COPD. Cardiovascular: Positive for: angina and hypertension Negative for: arrhythmia, CAD, DVT/PE and hyperlipidemia. GI: Positive for: GERD Negative for: abdominal pain. : CKD Negative for: frequent urination, hematuria, hesitancy and urinary incontinence. Endocrine: Positive for: diabetes mellitus. Patient's diabetes mellitus is controlled by diet, insulin and 6.3 11/2023. Negative for: hyperthyroidism and hypothyroidism. Hematology: Positive for: chronic anti-coagulation/platelet meds. Patient is on anti-coagulation/platelet medication(s): Aspirin (81mg). Oncology: No history of CA metastasis, chemo within 30 days, or radiotherapy within 90 days. No history of oncological symptoms or problems. Psych: Positive for: depression. Negative for: anxiety. Musculoskeletal: See HPI. Skin: Negative for lesions, rash and itching. PAST MEDICAL HISTORY No date: Angina pectoris (HCC) No date: Depression No date: GERD (gastroesophageal reflux disease) No date: HLD (hyperlipidemia) No date: HTN (hypertension) No date: Neuropathy Comment: bilateral feet No date: Type 2 diabetes mellitus (HCC) Comment: insulin dependent PAST SURGICAL HISTORY No date: L'SCOPE CHOLECYSTECTOMY No date: PAST SURGICAL HISTORY OF Comment: C5 and C6 fusion with titanium No date: TOTAL ABDOM HYSTERECTOMY 11/07/2021: TX INTER/NY/SUBTRCHNTRIC FEMORAL FX SCREW IMPLT; Right FAMILY HISTORY Problem Relation Age of Onset Diabetes Mother Heart Mother Lung Cancer Mother Social History Tobacco Use Smoking status: Former Packs/day: 3.00 Years: 45.00 Additional pack years: 0.00 Total pack years: 135.00 Types: Cigarettes Quit date: 12/2006 Years since quittin.0 Smokeless tobacco: Never Vaping Use Vaping Use: Never used Substance Use Topics Alcohol use: Not Currently Drug use: Never Prior to Admission medications as of 12/30/23 1059 Medication Sig Last Dose Taking LOW-DOSE ASPIRIN ORAL 81 mg once daily. Yes TOUJEO MAX U-300 SOLOSTAR 300 unit/mL (3 mL) inpn Inject 30 Units subcutaneously daily at bedtime. Yes buprenorphine (BUTRANS) 20 mcg/hour transdermal patch 1 Patch one time a week. Yes amLODIPine (NORVASC) 5 mg tablet Take 5 mg by mouth once daily. Yes carvedilol (COREG) 6.25 mg tablet Take 6.25 mg by mouth two times a day with meals. Yes citalopram hydrobromide (CELEXA) 10 mg tablet Take 10 mg by mouth once daily. Yes isosorbide mononitrate ER (IMDUR) 30 mg 24 hr tablet Take 30 mg by mouth once daily. Yes omeprazole (PRILOSEC) 40 mg capsule Take 40 mg by mouth once daily. Yes insulin lispro (HUMALOG U-100 INSULIN) 100 unit/mL injection Inject subcutaneously three times a day before meals. mupirocin (BACTROBAN) 2 % ointment Apply twice daily to each nostril for five days pre-operatively. Start on 01/14/2024. Patient should start on January 14, 2024. DEXCOM G7 SENSOR beth as directed. calcium-cholecalciferol, D3, (OSCAL+D 250) 250 mg-3.125 mcg (125 unit) per tablet Take 2 tablets by mouth once daily. traMADol (ULTRAM) 50 mg tablet Take 100 mg by mouth three times daily as needed for pain. lisinopril (ZESTRIL, PRINIVIL) 10 mg tablet Take 10 mg by mouth once daily. nitroglycerin sublingual (NITROQUICK) 0.4 mg SL tablet Dissolve 0.4 mg under the tongue every 5 minutes as needed for chest pain. pregabalin (LYRICA) 150 mg capsule Take 150 mg by mouth three times daily. metFORMIN (GLUCOPHAGE) 500 mg tablet Take 1 tablet by mouth twice daily with meals. No medication comments found. ALLERGIES Allergen Reactions Ciprofloxacin GI Upset Codeine Other: See Comments Tolerated oxycodone October 2021 Metformin Hives vomiting Neosporin [Benzalko* Rash Gamwbht-Txb-Xgw Red* Other: See Comments Sulfa (Sulfonamide * Other: See Comments Objective PHYSICAL EXAM: General: alert and oriented and healthy appearance. Skin: normal color, no rash or lesions. HEENT: Neck supple, small mouth opening . Cardiovascular: RRR, S1S2. Respiratory: normal breath sounds, no wheezes or crackles. Respirations easy at rest . Abdomen: Soft, non tender obese. Extremities: MOSES, walks with walker slow steady, no gross deficits trace peripheral edema, worse left . Neurological: normal cognition and motor skills. PAIN ASSESSMENT: VITALS: BP 110/68 Pulse 58 Temp (Src) 98.1 (Temporal) Resp 20 Ht 5' 5 (1.65m) Wt 208 lb (94.3kg) SpO2 97% BMI 34.61 kg/(m2). Diagnostic tests reviewed for today's visit: Lab Value Units Date High Low HB No results within date range. HCT No results within date range. WBC No results within date range. PLT No results within date range. NA No results within date range. K No results within date range. GLUC No results within date range. BUN No results within date range. CREAT No results within date range. PTSEC No results within date range. INR No results within date range. APTT No results within date range. ALT No results within date range. AST No results within date range. TBILI No results within date range. TSH No results within date range. Lab Value Units Date High Low HCGQT No results within date range. UHCG No results within date range. HCG, BODY* No results within date range. Lab Value Units Date High Low ABORHD No results within date range. ABSCREEN No results within date range. Hemoglobin A1C (%) Date Value 11/07/2021 7.1 No results found for this or any previous visit (from the past 8760 hour(s)). No results found for this or any previous visit (from the past 04493 hour(s)). Instructions Given to Patient: Instructions located in the after visit summary. Patient given verbal and written preop instructions and voices comprehension and compliance. SIGNATURE: Lyudmila Leiva APRN.CNP PATIENT NAME: Audra Arhcer DATE: December 30, 2023 TIME: 9:58 AM PAGER/CONTACT #: [id number] Observed: 12/28/2023 12:00 AM Status: COMPLETED Source: [facility] Telephone ([employer] Platform[employer]) AUDRA ARCHER ([id number]) 1945 F Date Time Provider Department 12/28/23 ENDO [employer] During your visit today, we recorded the following information about you: [place] 12/28/2023 9:18 AM Signed Work Queue Shows Patient declined to schedule with us, states she lives in [place] and wants to schedule closer to her home. [place] December 28, 2023 9:18 AM Patient Name: AUDRA ARCHER([id number]) Sex: Female : 1945 PCP: BRYSON HERNANDEZ [facility] Center: [facility] Types of orders made on 12/05/2023: Referral Order Date:12/05/2023 Ordering User:NASH MANZANARES [[id number]] Encounter Provider:Nash Manzanares MD [[id number]] Authorizing Provider: Nash Manzanares MD [[id number]] Department:[facility][[id number]] Order Specific Information Order: CONSULT TO OSTEOPOROSIS CLINIC () [Custom: [id number]] Order #: [id number]: 1 Priority: Routine Class: Jewell Internal Referral Associated Diagnoses S72.141S Intertrochanteric fracture of right hip, sequela M80.00XS Osteoporosis with current pathological fracture, unspecified osteoporosis type, sequela [facility] Epic access? -> Yes Patient instructions: We will call with surgery date Priority: Routine Class: Jewell Internal Referral Associated Diagnoses S72.141S Intertrochanteric fracture of right hip, sequela M80.00XS Osteoporosis with current pathological fracture, unspecified osteoporosis type, sequela [facility] Epic access? -> Yes Allergies As of Date: 12/28/2023 Noted Allergy Reaction CIPROFLOXACIN 11/06/2021 8 - GI Upset CODEINE 11/05/2021 14 - Other: See Comments Comments: Tolerated oxycodone October 2021 METFORMIN 11/16/2021 4 - Hives Comments: vomiting NEOSPORIN (BENZALKONIUM CHLORIDE) 11/06/2021 2 - Rash [id number]-[id number] REDUCTASE INHIBIT*11/05/2021 14 - Other: See Comments SULFA (SULFONAMIDE ANTIBIOTICS) 11/05/2021 14 - Other: See Comments Date Reviewed: 12/02/2023 Reviewed by: Nash Manzanares MD - Fully Assessed Reason for Visit: Appointment [[id number]] Cmt: New osteo - patient Prescriptions as of 12/28/2023 - buprenorphine (BUTRANS) 20 mcg/hour transdermal patch 1 Patch one time a week. - DEXCOM G7 SENSOR beth as directed. - calcium-cholecalciferol, D3, (OSCAL+D 250) 250 mg-3.125 mcg (125 unit) per tablet Take 2 tablets by mouth once daily. - traMADol (ULTRAM) 50 mg tablet Take 100 mg by mouth three times daily as needed for pain. - amLODIPine (NORVASC) 5 mg tablet Take 5 mg by mouth once daily. - carvedilol (COREG) 6.25 mg tablet Take 6.25 mg by mouth two times a day with meals. - citalopram hydrobromide (CELEXA) 10 mg tablet Take 10 mg by mouth once daily. - isosorbide mononitrate ER (IMDUR) 30 mg 24 hr tablet Take 30 mg by mouth once daily. - lisinopril (ZESTRIL, PRINIVIL) 10 mg tablet Take 10 mg by mouth once daily. - nitroglycerin sublingual (NITROQUICK) 0.4 mg SL tablet Dissolve 0.4 mg under the tongue every 5 minutes as needed for chest pain. - omeprazole (PRILOSEC) 40 mg capsule Take 40 mg by mouth once daily. - pregabalin (LYRICA) 150 mg capsule Take 150 mg by mouth three times daily. - metFORMIN (GLUCOPHAGE) 500 mg tablet Take 1 tablet by mouth twice daily with meals. Problem List As Of Date 12/28/2023 Noted Resolved Intertrochanteric fracture of right femur, clos*11/05/2021 Obesity, Class II, BMI 35-39.9 [E66.9] 11/06/2021 Encounter Status:Closed by [place] on 12/28/23 CNPN Observed: 12/27/2023 12:00 AM Status: COMPLETED Source: [facility] Telephone (AK52B) AUDRA ARCEHR ([id number]) 1945 F Date Time Provider Department 12/27/23 MABLE PORTILLO [id number] During your visit today, we recorded the following information about you: Allergies As of Date: 12/27/2023 Noted Allergy Reaction CIPROFLOXACIN 11/06/2021 8 - GI Upset CODEINE 11/05/2021 14 - Other: See Comments Comments: Tolerated oxycodone October 2021 METFORMIN 11/16/2021 4 - Hives Comments: vomiting NEOSPORIN (BENZALKONIUM CHLORIDE) 11/06/2021 2 - Rash [id number] REDUCTASE INHIBIT*11/05/2021 14 - Other: See Comments SULFA (SULFONAMIDE ANTIBIOTICS) 11/05/2021 14 - Other: See Comments Date Reviewed: 12/02/2023 Reviewed by: Nash Manzanares MD - Fully Assessed Reason for Visit: PreOp Call [[id number]] Prescriptions as of 12/27/2023 - buprenorphine (BUTRANS) 20 mcg/hour transdermal patch 1 Patch one time a week. - DEXCOM G7 SENSOR beth as directed. - calcium-cholecalciferol, D3, (OSCAL+D 250) 250 mg-3.125 mcg (125 unit) per tablet Take 2 tablets by mouth once daily. - traMADol (ULTRAM) 50 mg tablet Take 100 mg by mouth three times daily as needed for pain. - amLODIPine (NORVASC) 5 mg tablet Take 5 mg by mouth once daily. - carvedilol (COREG) 6.25 mg tablet Take 6.25 mg by mouth two times a day with meals. - citalopram hydrobromide (CELEXA) 10 mg tablet Take 10 mg by mouth once daily. - isosorbide mononitrate ER (IMDUR) 30 mg 24 hr tablet Take 30 mg by mouth once daily. - lisinopril (ZESTRIL, PRINIVIL) 10 mg tablet Take 10 mg by mouth once daily. - nitroglycerin sublingual (NITROQUICK) 0.4 mg SL tablet Dissolve 0.4 mg under the tongue every 5 minutes as needed for chest pain. - omeprazole (PRILOSEC) 40 mg capsule Take 40 mg by mouth once daily. - pregabalin (LYRICA) 150 mg capsule Take 150 mg by mouth three times daily. - metFORMIN (GLUCOPHAGE) 500 mg tablet Take 1 tablet by mouth twice daily with meals. Problem List As Of Date 12/27/2023 Noted Resolved Intertrochanteric fracture of right femur, clos*11/05/2021 Obesity, Class II, BMI 35-39.9 [E66.9] 11/06/2021 Encounter Status:Closed by MABLE PORTILLO on 12/27/23 SHAUN Observed: 12/27/2023 12:00 AM Status: COMPLETED Source: [facility] Telephone (AK52B) AUDRA ARCHER ([id number]) 1945 F Date Time Provider Department 12/27/23 MABLE PORTILLO [id number] During your visit today, we recorded the following information about you: Mable Portillo RN 12/27/2023 10:17 AM Signed ORTHOPAEDIC COORDINATION OF CARE Discharge Disposition (Planned): Longterm Facility vs Rehab Discharge Transportation: Ambulance Number of Entry Steps: 1 Bedroom Location: First floor Bathroom Location: First floor Caregiver Assistance: Occasionally Available (2-4 days/wk) Home Location: n/a Stair Mobility: Greater than 3 stairs Bundle Inclusion: Yes SIGNATURE: Mable Portillo RN DATE: December 27, 2023 TIME: 10:15 AM Patient is planning discharge to SNF/rehab, she doesn't have consistent help at home, said her surgeon thinks she will need more rehab. She lives in a ranch home, has 1 step to enter. She has a ww/cane at home. I will follow post op. Allergies As of Date: 12/27/2023 Noted Allergy Reaction CIPROFLOXACIN 11/06/2021 8 - GI Upset CODEINE 11/05/2021 14 - Other: See Comments Comments: Tolerated oxycodone October 2021 METFORMIN 11/16/2021 4 - Hives Comments: vomiting NEOSPORIN (BENZALKONIUM CHLORIDE) 11/06/2021 2 - Rash [id number] REDUCTASE INHIBIT*11/05/2021 14 - Other: See Comments SULFA (SULFONAMIDE ANTIBIOTICS) 11/05/2021 14 - Other: See Comments Date Reviewed: 12/02/2023 Reviewed by: Nash Manzanares MD - Fully Assessed Reason for Visit: PreOp Call [[id number]] Prescriptions as of 12/27/2023 - buprenorphine (BUTRANS) 20 mcg/hour transdermal patch 1 Patch one time a week. - DEXCOM G7 SENSOR beth as directed. - calcium-cholecalciferol, D3, (OSCAL+D 250) 250 mg-3.125 mcg (125 unit) per tablet Take 2 tablets by mouth once daily. - traMADol (ULTRAM) 50 mg tablet Take 100 mg by mouth three times daily as needed for pain. - amLODIPine (NORVASC) 5 mg tablet Take 5 mg by mouth once daily. - carvedilol (COREG) 6.25 mg tablet Take 6.25 mg by mouth two times a day with meals. - citalopram hydrobromide (CELEXA) 10 mg tablet Take 10 mg by mouth once daily. - isosorbide mononitrate ER (IMDUR) 30 mg 24 hr tablet Take 30 mg by mouth once daily. - lisinopril (ZESTRIL, PRINIVIL) 10 mg tablet Take 10 mg by mouth once daily. - nitroglycerin sublingual (NITROQUICK) 0.4 mg SL tablet Dissolve 0.4 mg under the tongue every 5 minutes as needed for chest pain. - omeprazole (PRILOSEC) 40 mg capsule Take 40 mg by mouth once daily. - pregabalin (LYRICA) 150 mg capsule Take 150 mg by mouth three times daily. - metFORMIN (GLUCOPHAGE) 500 mg tablet Take 1 tablet by mouth twice daily with meals. Problem List As Of Date 12/27/2023 Noted Resolved Intertrochanteric fracture of right femur, clos*11/05/2021 Obesity, Class II, BMI 35-39.9 [E66.9] 11/06/2021 Encounter Status:Closed by MABLE PORTILLO on 12/27/23 ALLERGIES DATE TYPE / CODE NAME / CODE REACTION SEVERITY SOURCE 10/18/2024 DRUG INGREDI/247282 003(SNOMED CT) BACLOFEN OTHER: SEE C [facility] 10/11/2024 DRUG INGREDI/652916 003(SNOMED CT) KAMERON UNKNOWN [facility] 01/13/2024 DRUG/[id number] (SNOMED CT) TETANUS AND DIPHTHER. TOX (PF) OTHER: SEE C [facility] 11/16/2021 DRUG INGREDI/529826 003(SNOMED CT) METFORMIN HIVES [facility] 11/06/2021 DRUG INGREDI/610669 003(SNOMED CT) CIPROFLOXACIN GI UPSET [facility] 11/06/2021 DRUG INGREDI/714127 003(SNOMED CT) BENZALKONIUM CHLORIDE RASH [facility] 11/05/2021 Drug Class/37179078 3(SNOMED CT) XWAQSEX-BNT-[id number] REDUCTASE INHIBITORS HIVES [facility] 11/05/2021 Drug Class/17321824 3(SNOMED CT) SULFA (SULFONAMIDE ANTIBIOTICS) ANAPHYLAXIS High [facility] 11/05/2021 DRUG INGREDI/770503 003(SNOMED CT) CODEINE Mental g [facility] ENCOUNTERS ADMIT/DISCHARGE ACCOUNT NUMBER ADMITTING ENCOUNTER CLASS LOCATION SOURCE 11/30/2024/ 5 [id number] [facility] 10/22/2024/ 5 [id number] NASH MANZANARES [id number]: 01 [facility] 10/19/2024/ 5 [id number] [facility] 10/19/2024/ 5 [id number] [facility] 10/19/2024/ 5 [id number] [facility] 10/05/2024/ 5 [id number] [facility] 03/30/2024/ 4 [id number] [facility] 02/14/2024/ 4 [id number] [facility] 01/19/2024/ 4 [id number] NASH MANZANARES [id number]: 01 [facility] 01/13/2024/ 4 [id number] [facility] 12/30/2023/ 4 [id number] [facility] 12/30/2023/ 4 [id number] [facility] PAYERS ENCOUNTER GUARANTOR PAYER SUBSCRIBER SOURCE 11/30/2024 Primary Insuranc e:[facility] DUAL COMPLETE HMO POS SNPPolicy Number: [id number] Date:8490-45-08Cmtd Name:Harish LEARYB: [id number] [place] [address] [facility] 10/22/2024 Primary Insuranc e:[facility] DUAL COMPLETE HMO POS SNPPolicy Number: [id number] Date:1439-73-82Iqfp Name:Harish LEARYB: [id number] [place] [address] [facility] 10/19/2024 Primary Insuranc e:[facility] DUAL COMPLETE HMO POS SNPPolicy Number: [id number] Date:2224-58-20Pqub Name:Harish LEARYB: [id number] [place] [address] [facility] 10/19/2024 Primary Insuranc e:[facility] DUAL COMPLETE HMO POS SNPPolicy Number: [id number] Date:7282-67-47Xzxg Name:Harish ARCHERDOB: [id number] [place] [address] [facility] 10/19/2024 Primary Insuranc e:[facility] DUAL COMPLETE HMO POS SNPPolicy Number: [id number] Date:0852-47-10Mlsm Name:Harish ARCHERDOB: [id number] [place] [address] [facility] 10/05/2024 Primary Insuranc e:[employer] MEDIC[employer] HMOPolicy Number: [id number] Date:2266-82-84Uzwx Name:Harish ARCHERDOB: [id number] [place] [address] [facility] 03/30/2024 Primary Insuranc e:[employer] HMOPolicy Number: [id number] Date:2501-80-48Swig Name:Hairsh ARCHERDOB: [id number] [place] [address] [facility] 02/14/2024 Primary Insuranc e:[employer] HMOPolicy Number: [id number] Date:2221-69-34Tivt Name:Harish ARCHERDOB: [id number] [place] [address] [facility] 01/19/2024 Primary Insuranc e:[employer] HMOPolicy Number: [id number] Date:4587-47-75Usmc Name:Harish ARCHERDOB: [id number] [place] [address] [facility] 01/13/2024 Primary Insuranc e:[employer] HMOPolicy Number: [id number] Date:2476-69-67Xesl Name:Harish ARCHERDOB: [id number] [place] [address] [facility] 12/30/2023 Primary Insuranc e:[employer] HMOPolicy Number: [id number] Date:5005-77-23Fbbd Name:Harish ARCHERDOB: [id number] [place] [address] [facility] 12/30/2023 Primary Insuranc e:[employer] HMOPolicy Number: [id number] Date:3092-91-59Jodv Name:Harish ARCHERDOB: [id number] [place] [address] [facility]
[2024-12-25 20:23] LABS: CRP < 3.00 mg/L (0.0-3.0)
--- NOTE | 2024-12-25 20:23 | CT_ITS ---
PROCEDURE: ABDOMEN/PEL W ORAL CONT ONLY 12/25/2024 REASON FOR EXAM: ABDOMINAL PAIN TECHNIQUE: ABDOMEN/PEL W ORAL CONT ONLY Noncontrast technique limits evaluation of the abdominal and pelvic viscera. Coronal and Sagittal reconstruction series were provided. One or more dose reduction techniques were used (e.g., Automated exposure control, adjustment of the mA and/or kV according to patient size, use of iterative reconstruction technique). RADIATION DOSE SUMMARY: CTDlvol: 18 mGy DLP: 1071 mGycm COMPARISON: Chest CT 12/25/2024 FINDINGS: Refer to chest CT report for lung base information. Status post cholecystectomy. No acute liver, pancreas, spleen, adrenal, or kidney findings. There is a 1 cm right adrenal nodule favoring adenoma. The left kidney is mildly atrophic with a small simple cyst. There is collecting system contrast from recent enhanced chest CT. There is mild bilateral hydronephrosis, possibly on the basis of reflux. Bladder is distended without wall thickening. Status post hysterectomy. No retroperitoneal or pelvic adenopathy. No free air. Nondistended bowel. No signs of appendicitis. No acute large bowel findings. Status post right THR lumbar spine scoliosis and degeneration. CT/Abdomen/Pel W ORAL Cont Only IMPRESSION: Possible bilateral ureteral reflux. No acute abdominal or pelvic findings. [facility]
[2024-12-25 21:17] LABS: Procalcitonin 0.05 ng/mL (<=0.10)
[2024-12-25] MEDS: 0.9% Normal Saline (1000mL) 1,000 ML 100 ML IV (21:46)
[2024-12-25] MEDS: 0.9% Saline Lock 10 ML Syringe IV (21:51)
[2024-12-26 04:30] VITALS: BP 121/48; PULSE 77; RESP 16; TEMP 36.8; O2SAT 92
[2024-12-26 05:48] VITALS: BMI 36.6
[2024-12-26 08:07] LABS: Hematocrit 35.4 % (37-47); Hemoglobin 11.6 g/dL (12.0-15.0); Immature Granulocytes Count 0.020 X10^3/uL (0.0-0.0); Mean Corp Hgb Conc 32.8 g/dL (32-36); Mean Corpuscular Volume 90.8 fL (81-99); Mean Platelet Vol. 10.9 fl (6.2-12.0); NRBC Flagged by Analyzer 0 % (0-5); Platelet Count 178 K/mm3 (150-450); RBC Distribution Width CV 15.3 % (11.6-14.6); RBC Distribution Width SD 50.5 fl (35.1-43.9); Red Blood Count 3.90 M/mm3 (4.2-5.4); White Blood Count 8.4 K/mm3 (4.4-11.0)
[2024-12-26 08:34] LABS: AST(SGOT) 29 U/L (<=31); Alanine Aminotransfer ALT/SGPT 17 U/L (<=34); Albumin, Serum 3.6 g/dL (3.4-4.8); Alkaline Phosphatase 81 U/L (35-104); Anion Gap 9 (5-15); BUN 17 mg/dL (4-19); BUN/Creat Ratio 13.9 RATIO (10-20); Calcium,Total 8.6 mg/dL (7.6-11.0); Carbon Dioxide 25.1 mmol/L (21.0-32.0); Chloride 106 mmol/L (98-108); Estimated Creatinine Clearance 44.07 ml/min (50-250); Globulin 3.2 g/dL (2.2-4.2); Glucose 114 mg/dL (70-99); Potassium 4.1 mmol/L (3.3-5.1)
[2024-12-26 09:07] VITALS: BP 123/53; PULSE 74; RESP 18; TEMP 36.6; O2SAT 95
[2024-12-26] MEDS: Lidocaine 5% Patch 1 PATCH TOPICAL (09:13)
[2024-12-26] MEDS: Aspirin E.C. 81 MG Tablet PO (09:13)
--- NOTE | 2024-12-26 14:13 | PCM.PROGNOTE ---
Subjective Subjective Patient seen and examined, with her nurse by her bedside. She complained of weakness and diarrhea; this diarrhea is chronic. She says she used to be able to carry out her activities of daily living at home, but has been feeling very weak of late and has been unable to do this. Review of systems is otherwise negative. Objective Data Objective Data Vital Signs: Vital Signs Temp Pulse Resp BP Pulse Ox O2 Del Method FiO2 98 F 74 18 123/53 H 95 Room Air 21 12/26/24 09:07 12/26/24 09:07 12/26/24 09:07 12/26/24 09:07 12/26/24 09:07 12/26/24 09:09 12/25/24 22:21 Oxygen Delivery Method Room Air Weight: 219 lb 9.286 oz Body Mass Index (BMI) 36.6 Intake & Output: Intake and Output for Last 24 Hours 12/24/24 12/25/24 12/26/24 23:59 23:59 23:59 Intake Total 1000 / 1000 1000 / 1000 Balance 1000 / 1000 1000 / 1000 Lab / Micro Data 12/26/24 07:57 12/26/24 07:57 Labs: Laboratory Results - last 24 hr 12/25/24 13:50: WBC 9.0, RBC 4.26, Hgb 12.4, Hct 38.1, MCV 89.4, MCH 29.1, MCHC 32.5, RDW Std Deviation 48.2 H, RDW Coeff of Sarah 14.8 H, Plt Count 175, MPV 11.2, Immature Gran % (Auto) 0.600, Neut % (Auto) 65.1, Lymph % (Auto) 24.9, [place] % (Auto) 6.8, Eos % (Auto) 1.9, Baso % (Auto) 0.7, Absolute Neuts (auto) 5.9, Absolute Lymphs (auto) 2.24, Nucleated RBC % 0, ESR 39 H, Sodium 140, Potassium 4.6, Chloride 105, Carbon Dioxide 24.2, Anion Gap 11, BUN 18, Creatinine 1.06, Estim Creat Clear Calc 49.48 L, Est GFR (MDRD) Non-Af 53 L, BUN/Creatinine Ratio 16.9, Glucose 145 H, Calcium 9.6, Magnesium 1.9, Total Bilirubin 0.35, AST 37 H, ALT 22, Alkaline Phosphatase 104, Troponin T High Sens 10, Total Protein 7.7, Albumin 3.9, Globulin 3.9, Albumin/Globulin Ratio 1.0, Lipase 24 12/25/24 15:20: Urine Color Yellow, Urine Clarity Clear, Urine pH 6.0, Ur Specific [place] 1.015, Urine Protein 15 H, Urine Glucose (UA) Normal, Urine Ketones Negative, Urine Occult Blood 50 H, Urine Nitrite Negative, Urine Bilirubin Negative, Urine Urobilinogen Normal, Ur Leukocyte Esterase Negative, Urine RBC 0-5 SEEN, Urine WBC 0-5 SEEN, Ur Squamous Epith Cells 5-10 SEEN, Urine Bacteria 0 SEEN, Hyaline Casts 0-5 SEEN, Urine Mucus 0 SEEN 12/25/24 15:57: Troponin T Hi Sens 2 Hr 9, C-React Prot Ext Range < 3.00, Procalcitonin 0.05 12/25/24 21:47: POC Glucose 111 H 12/26/24 06:24: POC Glucose 126 H 12/26/24 07:57: WBC 8.4, RBC 3.90 L, Hgb 11.6 L, Hct 35.4 L, MCV 90.8, MCH 29.7, MCHC 32.8, RDW Std Deviation 50.5 H, RDW Coeff of Sarah 15.3 H, Plt Count 178, MPV 10.9, Immature Gran % (Auto) 0.200, Neut % (Auto) 55.4, Lymph % (Auto) 30.6, [place] % (Auto) 10.4 H, Eos % (Auto) 2.6, Baso % (Auto) 0.8, Absolute Neuts (auto) 4.6, Absolute Lymphs (auto) 2.56, Nucleated RBC % 0, Sodium 140, Potassium 4.1, Chloride 106, Carbon Dioxide 25.1, Anion Gap 9, BUN 17, Creatinine 1.19, Estim Creat Clear Calc 44.07 L, Est GFR (MDRD) Non-Af 46 L, BUN/Creatinine Ratio 13.9, Glucose 114 H, Calcium 8.6, Total Bilirubin 0.43, AST 29, ALT 17, Alkaline Phosphatase 81, Total Protein 6.8, Albumin 3.6, Globulin 3.2, Albumin/Globulin Ratio 1.1 12/26/24 12:04: POC Glucose 164 H Micro: Microbiology 12/25/24 21:15 Mucosa - Nasopharyngeal Respiratory Panel (PCR) - Final 12/25/24 21:15 Mucosa - Nasopharyngeal Coronavirus COVID-19 PCR - Final 12/25/24 14:22 Mucosa - Nose SARS-CoV-2, Influenza & RSV (PCR) - Final Radiography Diagnostic Testing: Radiology Impression Chest X-Ray 12/25/24 14:40 IMPRESSION: NO ACUTE FINDINGS. Reading Location: [id number] Chest CTA 12/25/24 15:21 IMPRESSION: 1. No evidence of pulmonary embolus. 2. Pulmonary nodules bilaterally, that are less than 6.0 mm in size. According to the 2017 Fleischner criteria, if the patient is low risk, no routine follow-up is recommended. If the patient is high risk, an optional CT at 12 months is recommended. Reading Location: [id number] Abdomen CT 12/25/24 20:23 IMPRESSION: Possible bilateral ureteral reflux. No acute abdominal or pelvic findings. Reading Location: [facility] Physical Exam Const alert, oriented x3 and no apparent distress Constitutional Narrative: class II obesity. Frail General Appearance: cooperative HEENT normocephalic, head/scalp atraumatic, moist oral mucous membranes and oropharynx normal Neck no lymphadenopathy and supple Lymph Lymphatic: no lymphedema noted Resp normal respiratory effort, normal air movement and clear to auscultation bilaterally Cardio regular rate, regular rhythm, S1 normal heart sound, S2 normal heart sound and no murmurs GI normal to inspection, nondistended, normoactive bowel sounds, soft to palpation, non-tender and non-distended Extremity normal capillary refill, no clubbing, cyanosis or edema and no calf tenderness General Extremity: no tenderness to palpation of joints or extremities Skin General Skin Exam: no breakdown Neuro CN's II-XII intact bilaterally and no focal motor deficits Motor Exam: strength 5/5 throughout and general weakness Psych thought process normal and cooperative Appearance: appropriate Assessment & Plan Assessment/Plan (1) Adult failure to thrive: PLAN: Plan #Debility, weakness and failure to thrive PT/OT on board. Fall precautions says she was usually able to perform all her activities of daily living at home but has not been able to do so of late. PT/OT on board. fall precautions. #Diarrhea says the diarrhea is chronic and has been going on since October, when she had her knee replacement done. enteric panel ordered; she said her bm's alternate between formed and diarrhea. If enteric panel is negative, will refer to GI on outpatient basis #Pulmonary nodules CT of the chest done was negative for PE showed bilateral pulmonary nodules less than 6 mm in size. Will benefit from follow-up with PCP and follow-up imaging as needed. #CAD: On aspirin and Coreg and statin hypertension: On Coreg and Imdur. IV hydralazine as needed #Suspected PABLO: noted to desaturated when sleeping. Will benefit from outpatient evaluation by pulmonology to diagnose PABLO. # History of osteoarthritis s/p left knee replacement: Lidocaine patch daily due to chronic pain. Also on oxycodone. PT OT on board. #Type 2 diabetes mellitus with neuropathy: On Lantus 60 units qhs. Insulin sliding scale. Accu-Cheks ACHS. Also on pregabalin #Depression; on celexa #GERD: on PPI DVT prophylaxis: lovenox Disposition: Patient interested in placement. Case manaagement on board to help facilitate placement. Charges/Coding Visit Charges Inpatient E&M: 34096 Subs Hosp L2
--- NOTE | 2024-12-26 14:21 | CASEMGMT ---
Discharge Planning A list of SNF providers including quality and resource use data and consistent with the patient's preferred geographic region, medical needs, and insurance network was created in [employer] Guide.? This list was provided to the SW. Narda Cormier Discharge Planning Asst.
--- NOTE | 2024-12-26 14:37 | CASEMGMT ---
Social Work- SW met with pt to discuss d/c planning. Pt shared history of medical and social issues; pt reporting that she would like to d/c to SNF prior to d/c home. Pt reports that she lives with dtr, son-in-law, and granddaughter, but does not have someone with her for assistance at all times. Pt reports following recent surgery and stay at [facility], pt was independent and able to do dishes and chores. Pt reports that she has a LOB and dizziness frequently leading up to recent fall. Pt is uncertain as to what would cause this change. A list of SNF providers including quality and resource use data and consistent with the patient?s preferred geographic region, medical needs, and insurance network were provided from the [employer] Guide. Pt to review list with dtr and provide three choices to SW. SW remains available to follow. YAZMIN Riggs
--- NOTE | 2024-12-26 16:06 | CASEMGMT ---
HUMPHREYS Met with patient to complete HUMPHREYS form. HUMPHREYS form and its content were verbally explained and patient's questions were answered to the best of my ability.? Patient voiced understanding and signed HUMPHREYS form.? Patient provided a copy of signed HUMPHREYS form and original placed in patient's chart.? Patient had no further questions. Narda Cormier, Discharge Planning Asst
[2024-12-26 17:42] VITALS: BP 95/45; PULSE 70; RESP 18; TEMP 36.8; O2SAT 93
[2024-12-26 22:00] VITALS: BP 114/57; PULSE 77; RESP 18; TEMP 36.6; O2SAT 94
[2024-12-27 05:32] VITALS: BP 127/66; PULSE 81; RESP 18; TEMP 36.4; O2SAT 92
[2024-12-27 05:57] VITALS: BMI 37.0
[2024-12-27 07:21] LABS: Hematocrit 35.7 % (37-47); Hemoglobin 11.2 g/dL (12.0-15.0); Immature Granulocytes Count 0.020 X10^3/uL (0.0-0.0); Mean Corp Hgb Conc 31.4 g/dL (32-36); Mean Corpuscular Volume 92.5 fL (81-99); Mean Platelet Vol. 11.1 fl (6.2-12.0); NRBC Flagged by Analyzer 0 % (0-5); Platelet Count 169 K/mm3 (150-450); RBC Distribution Width CV 15.5 % (11.6-14.6); RBC Distribution Width SD 52.5 fl (35.1-43.9); Red Blood Count 3.86 M/mm3 (4.2-5.4); White Blood Count 6.7 K/mm3 (4.4-11.0)
[2024-12-27 07:46] LABS: Anion Gap 9 (5-15); BUN 24 mg/dL (4-19); BUN/Creat Ratio 15.6 RATIO (10-20); Calcium,Total 9.0 mg/dL (7.6-11.0); Carbon Dioxide 24.0 mmol/L (21.0-32.0); Chloride 107 mmol/L (98-108); Estimated Creatinine Clearance 34.98 ml/min (50-250); Glucose 133 mg/dL (70-99); Potassium 5.0 mmol/L (3.3-5.1)
[2024-12-27 08:45] VITALS: BP 109/53; PULSE 65; RESP 18; TEMP 36.3; O2SAT 97
[2024-12-27] MEDS: Aspirin E.C. 81 MG Tablet PO (08:51)
[2024-12-27] MEDS: Lidocaine 5% Patch 1 PATCH TOPICAL (08:51)
--- NOTE | 2024-12-27 11:11 | CASEMGMT ---
Addendum entered by Narda Cormier 12/27/24 15:10: [facility] declined and [facility] accepted. [facility] asked to submit for precert. Narda Cormier DC Planning Asst. Original Note: Discharge Planning Referral sent to [facility] and [facility] Cormier DC Planning Asst.
--- NOTE | 2024-12-27 11:39 | CASEMGMT ---
Addendum entered by Rosaura Strickland 12/27/24 17:24: SW spoke with pt dtr to update on referral status. Dtr reports that she has some concerns regarding pt fall from bed a week ago, as well as pt shoulder. Pt dtr reports she did not think to mention these concerns prior. SW encouraged follow-up with hospitalist and left message for therapy, as well as communication with hospitalist. Pt dtr also mentioned behaviors that pt expresses at home indicative of undiagnosed mental health concerns. Pt dtr and pt granddaughter asked questions regrading placement and intermediate care vs skilled care; SW provided education. SW remains available to follow. YAZMIN Riggs Addendum entered by Rosaura Strickland 12/27/24 15:14: SW received notice that [facility] accepted referral. [facility] declined referral. Pt updated and agreeable to [facility] starting precert. DCA notified. SW remains available to follow. YAZMIN Riggs Addendum entered by Rosaura Strickland 12/27/24 13:58: MITZI dtr in pt room and requested to speak with SW. MITZI met with pt and pt dtr to discuss therapy participation today, as well as discharge plans. MITZI updated that referrals remain pending. MITZI provided support for pt and pt dtr through active and empathetic listening, as well as guided through problem solving discussion for disagreements between pt and pt dtr. MTIZI updated hospitalist that pt dtr present; hospitalist agreeable to meet. MITZI remains available to follow. YAZMIN Riggs Original Note: Social Work- SW received a call from pt dtr, Marry. Pt dtr reports that she is the only living child of pt and has taken pt in following the of her , as pt had nowhere to go and would have been homeless, on the streets. Pt dtr reports that pt did not raise her, but dtr has done all the things she wanted in regards to home modifications and care. Pt dtr reports that she cannot care for pt at this time and has expressed to pt that she needs to help herself and potentially look at buttermaker helper care if a skilled stay does not improve pt abilities to be independent. Pt dtr reports that pt has HHC 3 times per week at home, but continues to report LOB d/t dizziness. Pt dtr requesting f/u with hospitalist to determine if a medical cause has been found or if there is a behavioral component. Pt dtr reports that she often catches pt in lies at home and pt has a pattern of behavioral issues, although pt dtr also acknowledges that pt reports historically having vertigo about 15 years prior. Pt dtr reports that pt and dtr selected [facility] and [facility] as [facility] for referrals. SW notified DCA of referral requests. SW coordinated with hospitalist. SW remains available to follow. YAZMIN Riggs
[2024-12-27 14:54] VITALS: BP 116/53; BP 132/55; BP 141/56; PULSE 77; PULSE 78; PULSE 81
--- NOTE | 2024-12-27 15:00 | CHAPLAIN ---
Type of Pastoral Visit _x__ Initial Visit ___ Follow-up Visit ___ On-call Visit ___ General Patient Visit ___ Spiritual Assessment ___ Family Conference ___ Bereavement ___ Rapid Response ___ Code Blue ___ Other (describe below) Pastoral Care Referral From _x__ Patient ___ Family ___ Nurse ___ Physician ___ Content Architect ___ Winter Intern ___ Other (describe below) Sacrament/Intervention _x__ Active listening ___ Anointing ___ Judaism ___ Bereavement ___ Communion ___ Freda exploration ___ _x__ Life review _x__ Prayer ___ Reconciliation ___ Sacrament of Sick _x__ Supportive presence ___ Wedding ___ Other (describe below) Pastoral Comments patient remembers this pbx operator from previous admissions; pt reviews her latest health scare that resulted in this hospital stay for testing; pt says that tests have been done but that no conclusion is available yet; pt admits to need for a short term care home stay for rehab; pt has had frustration from a hospitalization in another facility; time given to listen; pt affirms freda in God's plan on all things and today she welcomes a prayer for her healing
--- NOTE | 2024-12-27 15:40 | PN_ITS ---
Subjective Subjective Patient seen and examined with her nurse by her bedside. She was sitting comfortably in her chair. She still however complained of some episode of dizziness. She had no other complaints. Review of systems otherwise negative. She is awaiting placement. Later in the day her daughter Marry also came to visit and her daughter was updated at patient's bedside. Daughter was counseled that there was no clear etiology for her mother's apparent dizziness. Orthostatics checked are negative. Patient has also not been noted to be dehydrated. Was recommended that patient could follow-up with ENT on outpatient basis if the Objective Data Objective Data Vital Signs: Vital Signs Temp Pulse Resp BP Pulse Ox O2 Del Method FiO2 97.3 F L 77 18 116/53 L 97 Room Air 21 12/27/24 08:45 12/27/24 14:54 12/27/24 08:45 12/27/24 14:54 12/27/24 08:45 12/27/24 08:47 12/25/24 22:21 Oxygen Delivery Method Room Air Weight: 222 lb 7.143 oz Body Mass Index (BMI) 37.0 Intake & Output: Intake and Output for Last 24 Hours 12/25/24 12/26/24 12/27/24 23:59 23:59 23:59 Intake Total 1000 / 1000 1000 / 1000 Balance 1000 / 1000 1000 / 1000 Lab / Micro Data 12/27/24 06:40 12/27/24 06:40 Labs: Laboratory Results - last 24 hr 12/26/24 16:55: POC Glucose 196 H 12/26/24 22:53: POC Glucose 124 H 12/27/24 06:35: POC Glucose 133 H 12/27/24 06:40: WBC 6.7, RBC 3.86 L, Hgb 11.2 L, Hct 35.7 L, MCV 92.5, MCH 29.0, MCHC 31.4 L, RDW Std Deviation 52.5 H, RDW Coeff of Sarah 15.5 H, Plt Count 169, MPV 11.1, Immature Gran % (Auto) 0.300, Neut % (Auto) 40.0 L, Lymph % (Auto) 43.6 H, [place] % (Auto) 9.4, Eos % (Auto) 5.4 H, Baso % (Auto) 1.3 H, Absolute Neuts (auto) 2.7, Absolute Lymphs (auto) 2.92, Nucleated RBC % 0, Sodium 140, Potassium 5.0, Chloride 107, Carbon Dioxide 24.0, Anion Gap 9, BUN 24 H, C reatinine 1.51 H, Estim Creat Clear Calc 34.98 L, Est GFR (MDRD) Non-Af 35 L, BUN/Creatinine Ratio 15.6, Glucose 133 H, Calcium 9.0 12/27/24 11:32: POC Glucose 190 H Micro: Microbiology 12/25/24 21:15 Mucosa - Nasopharyngeal Respiratory Panel (PCR) - Final 12/25/24 21:15 Mucosa - Nasopharyngeal Coronavirus COVID-19 PCR - Final 12/25/24 14:22 Mucosa - Nose SARS-CoV-2, Influenza & RSV (PCR) - Final Physical Exam Const alert, oriented x3 and no apparent distress Constitutional Narrative: class II obesity. Frail General Appearance: cooperative HEENT normocephalic, head/scalp atraumatic, moist oral mucous membranes and oropharynx normal Neck no lymphadenopathy and supple Lymph Lymphatic: no lymphedema noted Resp normal respiratory effort, normal air movement and clear to auscultation bilaterally Cardio regular rate, regular rhythm, S1 normal heart sound, S2 normal heart sound and no murmurs GI normal to inspection, nondistended, normoactive bowel sounds, soft to palpation, non-tender and non-distended Extremity normal capillary refill, no clubbing, cyanosis or edema and no calf tenderness General Extremity: no tenderness to palpation of joints or extremities Skin General Skin Exam: no breakdown Neuro CN's II-XII intact bilaterally and no focal motor deficits Motor Exam: strength 5/5 throughout and general weakness Psych thought process normal and cooperative Appearance: appropriate Assessment & Plan Assessment/Plan (1) Adult failure to thrive: PLAN: Plan #Debility, weakness and failure to thrive * PT/OT on board. Fall precautions. She still complains of episodic dizziness. Orthostatics checked and negative. This dizziness is not acute but chronic. * says she was usually able to perform all her activities of daily living at home but has not been able to do so of late. * PT/OT on board. fall precautions. * Awaiting placement. Placed on meclizine. * #Diarrhea * says the diarrhea is chronic and has been going on since October, when she had her knee replacement done. * enteric panel ordered; she said her bm's alternate between formed and diarrhea. * Enteric panel still not done because diarrhea has resolved. * #SUSAN: Creatinine is 1.51 today. Was 1.19 yesterday. Hydrate gently with IV fluids and trend. If creatinine does not improve then we will do further workup. #Pulmonary nodules * CT of the chest done was negative for PE showed bilateral pulmonary nodules less than 6 mm in size. * Will benefit from follow-up with PCP and follow-up imaging as needed. #CAD: On aspirin and Coreg and statin hypertension: On Coreg and Imdur. IV hydralazine as needed #Suspected PABLO: noted to desaturated when sleeping. Will benefit from outpatient evaluation by pulmonology to diagnose PABLO. # History of osteoarthritis s/p left knee replacement: Lidocaine patch daily due to chronic pain. Also on oxycodone. PT OT on board. #Type 2 diabetes mellitus with neuropathy: On Lantus 60 units qhs. Insulin sliding scale. Accu-Cheks ACHS. Also on pregabalin #Depression; on celexa #GERD: on PPI DVT prophylaxis: lovenox Disposition: Awaiting placement. Charges/Coding Visit Charges Inpatient E&M: 47895 Subs Hosp L2
[2024-12-27] MEDS: 0.9% Normal Saline (1000mL) 1,000 ML 125 ML IV (16:31)
[2024-12-27] MEDS: 0.9% Saline Lock 10 ML Syringe IV (17:29)
[2024-12-27 20:00] VITALS: BP 149/53; PULSE 74; RESP 15; TEMP 36.2; O2SAT 95
[2024-12-27] MEDS: Insulin Glargine-YFGN 100 UNIT/ML Pen 60 UNIT SC (22:15)
[2024-12-28 04:28] VITALS: BP 138/65; PULSE 76; RESP 15; TEMP 36.6; O2SAT 92
[2024-12-28] MEDS: 0.9% Normal Saline (1000mL) 1,000 ML 125 ML IV (04:31)
[2024-12-28 06:00] VITALS: BMI 36.4
[2024-12-28 07:32] VITALS: O2SAT 94
[2024-12-28 08:13] LABS: Hematocrit 38.5 % (37-47); Hemoglobin 12.5 g/dL (12.0-15.0); Immature Granulocytes Count 0.030 X10^3/uL (0.0-0.0); Mean Corp Hgb Conc 32.5 g/dL (32-36); Mean Corpuscular Volume 91.4 fL (81-99); Mean Platelet Vol. 10.9 fl (6.2-12.0); NRBC Flagged by Analyzer 0 % (0-5); Platelet Count 181 K/mm3 (150-450); RBC Distribution Width CV 15.0 % (11.6-14.6); RBC Distribution Width SD 50.6 fl (35.1-43.9); Red Blood Count 4.21 M/mm3 (4.2-5.4); White Blood Count 6.3 K/mm3 (4.4-11.0)
[2024-12-28 09:20] LABS: Anion Gap 8 (5-15); BUN 18 mg/dL (4-19); BUN/Creat Ratio 16.5 RATIO (10-20); Calcium,Total 9.4 mg/dL (7.6-11.0); Carbon Dioxide 23.8 mmol/L (21.0-32.0); Chloride 109 mmol/L (98-108); Estimated Creatinine Clearance 48.04 ml/min (50-250); Glucose 118 mg/dL (70-99); Potassium 5.0 mmol/L (3.3-5.1)
--- NOTE | 2024-12-28 09:39 | CASEMGMT ---
Discharge Planning Updates sent to [facility]. Precert was not submitted yesterday as requested but will be submitted today. SW updated. Narda Cormier DC Planning Asst.
[2024-12-28 10:00] VITALS: BP 155/73; PULSE 73; RESP 18; TEMP 37.2; O2SAT 93
[2024-12-28] MEDS: Aspirin E.C. 81 MG Tablet PO (10:26)
[2024-12-28] MEDS: Lidocaine 5% Patch 1 PATCH TOPICAL (10:27)
--- NOTE | 2024-12-28 11:28 | CT_ITS ---
PROCEDURE: BRAIN/HEAD WITHOUT CONTRAST 12/28/2024 REASON FOR EXAM: DIZZINESS TECHNIQUE: BRAIN/HEAD WITHOUT CONTRAST Coronal and Sagittal reconstruction series were provided. One or more dose reduction techniques were used (e.g., Automated exposure control, adjustment of the mA and/or kV according to patient size, use of iterative reconstruction technique. RADIATION DOSE SUMMARY: CTDlvol: 45 mGy DLP: 846 mGycm COMPARISON: August 28, 2024 FINDINGS: Brain: Low density in the periventricular white matter suggests mild chronic small vessel ischemic changes. There is no evidence of hemorrhage, acute ischemia or mass. No extra-axial fluid collection, midline shift or mass effect. CSF Spaces: [id number] volume loss. Sinuses/Mastoids: Clear Bones: No fracture Atherosclerosis of the cavernous and supraclinoid internal carotid arteries and also the V4 segments of the vertebral arteries. CT/Brain/Head without Contrast IMPRESSION: 1. No evidence of intracranial hemorrhage or acute ischemia. 2. Changes of chronic microvascular ischemia and volume loss. Reading Location: [id number]
--- NOTE | 2024-12-28 12:20 | CASEMGMT ---
Social Work- SW coordinated with hospitalist in regards to pt dtr request for head CT due to fall a week ago; hospitalist agreeable. SW coordinated with PT regarding pt fall a week ago and discomfort. SW remains available to follow. Plan: yonathan Crum LSW
--- NOTE | 2024-12-28 13:08 | PN_ITS ---
Subjective Subjective Patient seen and examined with her nurse by her bedside today. Her daughter Karmen was on the phone. Patient still complaining of the dizziness and inquired about checking her inner ear. Review of systems otherwise negative. Has remained hemodynamically stable though her blood pressure is slightly elevated at 155/73 today. Objective Data Objective Data Vital Signs: Vital Signs Temp Pulse Resp BP Pulse Ox O2 Del Method FiO2 98.9 F 73 18 155/73 H 93 Room Air 21 12/28/24 10:00 12/28/24 10:00 12/28/24 10:00 12/28/24 10:00 12/28/24 10:00 12/28/24 10:00 12/25/24 22:21 Oxygen Delivery Method Room Air Weight: 218 lb 14.704 oz Body Mass Index (BMI) 36.4 Intake & Output: Intake and Output for Last 24 Hours 12/26/24 12/27/24 12/28/24 23:59 23:59 23:59 Intake Total 1000 / 1000 72.92 / 72.92 927.08 / 927.08 Balance 1000 / 1000 72.92 / 72.92 927.08 / 927.08 Lab / Micro Data 12/28/24 07:45 12/28/24 07:45 Labs: Laboratory Results - last 24 hr 12/27/24 16:44: POC Glucose 147 H 12/27/24 22:14: POC Glucose 182 H 12/28/24 06:36: POC Glucose 129 H 12/28/24 07:45: WBC 6.3, RBC 4.21, Hgb 12.5, Hct 38.5, MCV 91.4, MCH 29.7, MCHC 32.5, RDW Std Deviation 50.6 H, RDW Coeff of Sarah 15.0 H, Plt Count 181, MPV 10.9, Immature Gran % (Auto) 0.500, Neut % (Auto) 41.1 L, Lymph % (Auto) 41.6 H, Winkler % (Auto) 9.5, Eos % (Auto) 5.9 H, Baso % (Auto) 1.4 H, Absolute Neuts (auto) 2.6, Absolute Lymphs (auto) 2.63, Nucleated RBC % 0, Sodium 140, Potassium 5.0, Chloride 109 H, Carbon Dioxide 23.8, Anion Gap 8, BUN 18, Creatinine 1.09, Estim Creat Clear Calc 48.04 L, Est GFR (MDRD) Non-Af 51 L, BUN/Creatinine Ratio 16.5, Glucose 118 H, Calcium 9.4 12/28/24 12:22: POC Glucose 215 H Micro: Microbiology 12/27/24 16:30 Stool Enteric Bacteriology - Final 12/27/24 16:30 Stool Clostridioides difficile (PCR) - Final 12/25/24 21:15 Mucosa - Nasopharyngeal Respiratory Panel (PCR) - Final 12/25/24 21:15 Mucosa - Nasopharyngeal Coronavirus COVID-19 PCR - Final 12/25/24 14:22 Mucosa - Nose SARS-CoV-2, Influenza & RSV (PCR) - Final Radiography Diagnostic Testing: Radiology Impression Brain CT 12/28/24 11:28 IMPRESSION: 1. No evidence of intracranial hemorrhage or acute ischemia. 2. Changes of chronic microvascular ischemia and volume loss. Reading Location: [facility] Physical Exam Const alert, oriented x3 and no apparent distress Constitutional Narrative: class II obesity. Frail General Appearance: cooperative HEENT normocephalic, head/scalp atraumatic, moist oral mucous membranes and oropharynx normal Eyes EOMs intact bilaterally Neck no lymphadenopathy and supple Lymph Lymphatic: no lymphedema noted Resp normal respiratory effort, normal air movement and clear to auscultation bilaterally Cardio regular rate, regular rhythm, S1 normal heart sound, S2 normal heart sound and no murmurs GI normal to inspection, nondistended, normoactive bowel sounds, soft to palpation, non-tender and non-distended Extremity normal capillary refill, no clubbing, cyanosis or edema and no calf tenderness General Extremity: no tenderness to palpation of joints or extremities Skin General Skin Exam: no breakdown Neuro CN's II-XII intact bilaterally and no focal motor deficits Motor Exam: strength 5/5 throughout and general weakness Psych thought process normal and cooperative Appearance: appropriate Assessment & Plan Assessment/Plan (1) Adult failure to thrive: PLAN: Plan #Debility, weakness and failure to thrive * PT/OT on board. Fall precautions. She still complains of episodic dizziness. Orthostatics checked and negative. This dizziness is not acute but chronic. * says she was usually able to perform all her activities of daily living at home but has not been able to do so of late. * PT/OT on board. fall precautions. * Awaiting placement. Placed on meclizine. * CT of the brain done today on account of the dizziness and is negative for any acute intracranial pathology. Angelo maneuver ordered to see if this will help with her symptoms. * #Diarrhea * says the diarrhea is chronic and has been going on since October, when she had her knee replacement done. * enteric panel ordered; she said her bm's alternate between formed and diarrhea. * enteric panel done yesterday after she had another episode of diarrhea is negatige. CDiff screen also negative. * #SUSAN: resolved. Cr is down to 1.09 today #Pulmonary nodules * CT of the chest done was negative for PE showed bilateral pulmonary nodules less than 6 mm in size. * Will benefit from follow-up with PCP and follow-up imaging as needed. #CAD: On aspirin and Coreg and statin hypertension: On Coreg and Imdur. IV hydralazine as needed #Suspected PABLO: noted to desaturated when sleeping. Will benefit from outpatient evaluation by pulmonology to diagnose PABLO. # History of osteoarthritis s/p left knee replacement: Lidocaine patch daily due to chronic pain. Also on oxycodone. PT OT on board. #Type 2 diabetes mellitus with neuropathy: On Lantus 60 units qhs. Insulin sliding scale. Accu-Cheks ACHS. Also on pregabalin #Depression; on celexa #GERD: on PPI DVT prophylaxis: lovenox Disposition: Awaiting placement. Charges/Coding Visit Charges Inpatient E&M: 62622 Subs Hosp L2
--- NOTE | 2024-12-28 13:33 | CASEMGMT ---
Marla Fermin has obtained auth to admit. SW updated. Narda Cormier DC Planning Asst.
--- NOTE | 2024-12-28 15:02 | CASEMGMT ---
Social Work- SW received message that precert has been obtained. SW updated hospitalist. SW met with pt to discuss d/c planning. SW updated pt that precert has been obtained. Pt called pt lilianar Marry and MITZI updated dtr as well. YAZMIN Riggs
--- NOTE | 2024-12-28 15:05 | TREXTCAR_ITS ---
Diet Diet Order/Speech Therapy: INPATIENT Hospital Diet / Speech Therapy Order(s) 12/27/24 13:17 Diet: Regular - General Routine Orders/Code Status Enema Type: Fleetz Enema Frequency: Daily PRN Suppository Type: Dulcolax 10mg Suppository Frequency: Daily PRN DC O2, CPAP, BIPAP needs Home O2 Discharge instructions: No Therapies Weight Bearing: Weight bearing as tolerated Physical Therapy: Eval and Treat Occupational Therapy: Eval and Treat Problem/Diagnosis (1) Adult failure to thrive: Status: Acute Code(s): R62.7 - Adult failure to thrive Plan #Debility, weakness and failure to thrive * PT/OT on board. Fall precautions. She still complains of episodic dizziness. Orthostatics checked and negative. This dizziness is not acute but chronic. * says she was usually able to perform all her activities of daily living at home but has not been able to do so of late. * PT/OT on board. fall precautions. * Awaiting placement. Placed on meclizine. * CT of the brain done today on account of the dizziness and is negative for any acute intracranial pathology. Angelo maneuver ordered to see if this will help with her symptoms. * #Diarrhea * says the diarrhea is chronic and has been going on since October, when she had her knee replacement done. * enteric panel ordered; she said her bm's alternate between formed and diarrhea. * enteric panel done yesterday after she had another episode of diarrhea is negatige. CDiff screen also negative. * #SUSAN: resolved. Cr is down to 1.09 today #Pulmonary nodules * CT of the chest done was negative for PE showed bilateral pulmonary nodules less than 6 mm in size. * Will benefit from follow-up with PCP and follow-up imaging as needed. #CAD: On aspirin and Coreg and statin hypertension: On Coreg and Imdur. IV hydralazine as needed #Suspected PABLO: noted to desaturated when sleeping. Will benefit from outpatient evaluation by pulmonology to diagnose PABLO. # History of osteoarthritis s/p left knee replacement: Lidocaine patch daily due to chronic pain. Also on oxycodone. PT OT on board. #Type 2 diabetes mellitus with neuropathy: On Lantus 60 units qhs. Insulin sliding scale. Accu-Cheks ACHS. Also on pregabalin #Depression; on celexa #GERD: on PPI DVT prophylaxis: lovenox Disposition: Awaiting placement. Allergies/Procedures Done in Hospital Allergies inge Allergy (Intermediate, Verified 12/25/24 13:45) Anaphylaxis tetanus and diphtheria toxoids Allergy (Intermediate, Verified 12/25/24 13:45) Syncope codeine Allergy (Verified 12/25/24 13:45) Other metformin Allergy (Verified 12/25/24 13:45) Hives [id number]-[id number]-YnK Reductase Inhibitor Allergy (Verified 12/25/24 13:45) Other Sulfa (Sulfonamide Antibiotics) Allergy (Verified 12/25/24 13:45) Other Procedures: None Type of Care/Length of Stay Estimated LOS: Convalescent Care Less Than 30 days Type of Care Needed: Skilled Rehab Potential: Fair Prognosis: Fair Additional Orders/Day of Discharge Day of Discharge: 12/28/24 Dietary and Speech Recommendations Dietitian Recommendations/Changes: Will continue 1800 calorie/consistent carbohydrate diet; will add cardiac diet restriction as well. ONS only if PO fails at meals; will defer for now. Discharge Plan Admission Admit Date/Time: 12/25/24 19:25 Primary Reason for Your Visit: debility and weakness, dizziness, failure to thrive Attending Provider: Justa Warner Primary Care Provider: Bryson Hernandez Chi Consulting Providers: Miriam Holland Instructions Patient Instructions: ED FALL-from [facility] Discharge Orders/Prescriptions Prescriptions: New meclizine [Travel-Ease (meclizine)] 25 mg Tablet 25 mg PO TID PRN PRN (Reason: Dizziness) Qty: 90 0RF Continued Zyrtec 10 mg capsule 10 mg PO DAILY carvedilol 6.25 mg tablet 6.25 mg PO BID insulin glargine U-300 conc [Toujeo Max U-300 SoloStar] 300 unit/mL (3 mL) insulin pen 60 unit subcut QHS nitroglycerin 0.4 mg tablet, sublingual 0.4 mg sublingual Q5M PRN (Reason: chest pain) Rx Instructions: do not exceed 3 doses per episode insulin lispro 100 unit/mL insulin pen 5 - 10 unit subcut TID Rx Instructions: Before meals. Slow-Mag 71.5 mg tablet,delayed release (DR/EC) 71.5 - 143 mg PO QHS isosorbide mononitrate 30 mg tablet extended release 24 hr 1 tab PO DAILY Patient Comments: TAKE 1 TABLET BY MOUTH ONCE DAILY FOR 30 DAYS omeprazole 40 mg capsule,delayed release(DR/EC) 1 cap PO BID Patient Comments: TAKE 1 CAPSULE BY MOUTH TWICE DAILY citalopram [Celexa] 10 mg Tablet 10 mg PO DAILY aspirin 81 mg Tablet,Delayed Release (Dr/Ec) 81 mg PO BREAKFAST Qty: 0 0RF acetaminophen 500 mg Tablet 1,000 mg PO Q8 Qty: 0 0RF lidocaine 5 % Adhesive Patch,Medicated 1 patch topical DAILY 30 Days Qty: 30 0RF oxycodone 5 mg Tablet 5 mg PO Q4H PRN PRN (Reason: Pain Score 1-10 Or Pre Pt/Ot) 7 Days Qty: 42 0RF pregabalin 75 mg Capsule 150 mg PO TID Qty: 0 0RF oxycodone 5 mg tablet 5 mg PO Q4H PRN (Reason: pain) 7 Days Qty: 42 0RF Referrals / Follow Up: Jerald Cole MD [Med Staff - Active Staff] - Within 2 Weeks (see as follow up for persistent dizziness.) Bryson Hernandez Chi, MD [Primary Care Provider] - Within 1 Week Disposition Disposition (needs filled in before D/C Order can be placed): [facility]
--- NOTE | 2024-12-28 15:06 | PCM.DC.SUM ---
Providers Date of Admission: 12/25/24 Date of Discharge: 12/28/24 Primary Care Physician: Dr. rByson Hernandez MD Reason For Visit: ADULT FTT Diagnosis Discharge Diagnosis (1) Adult failure to thrive: Status: Acute Code(s): R62.7 - Adult failure to thrive Plan #Debility, weakness and failure to thrive PT/OT on board. Fall precautions. She still complains of episodic dizziness. Orthostatics checked and negative. This dizziness is not acute but chronic. says she was usually able to perform all her activities of daily living at home but has not been able to do so of late. PT/OT on board. fall precautions. Awaiting placement. Placed on meclizine. CT of the brain done today on account of the dizziness and is negative for any acute intracranial pathology. Angelo maneuver ordered to see if this will help with her symptoms. #Diarrhea says the diarrhea is chronic and has been going on since October, when she had her knee replacement done. enteric panel ordered; she said her bm's alternate between formed and diarrhea. enteric panel done yesterday after she had another episode of diarrhea is negatige. CDiff screen also negative. #SUSAN: resolved. Cr is down to 1.09 today #Pulmonary nodules CT of the chest done was negative for PE showed bilateral pulmonary nodules less than 6 mm in size. Will benefit from follow-up with PCP and follow-up imaging as needed. #CAD: On aspirin and Coreg and statin hypertension: On Coreg and Imdur. IV hydralazine as needed #Suspected PABLO: noted to desaturated when sleeping. Will benefit from outpatient evaluation by pulmonology to diagnose PABLO. # History of osteoarthritis s/p left knee replacement: Lidocaine patch daily due to chronic pain. Also on oxycodone. PT OT on board. #Type 2 diabetes mellitus with neuropathy: On Lantus 60 units qhs. Insulin sliding scale. Accu-Cheks ACHS. Also on pregabalin #Depression; on celexa #GERD: on PPI DVT prophylaxis: lovenox Disposition: Awaiting placement. Medications at Discharge Home Medications isosorbide mononitrate 30 mg tablet,extended release 24 hr 1 tab PO DAILY heart 11/05/21 omeprazole 40 mg capsule,delayed release 1 cap PO BID reflux 11/05/21 citalopram 10 mg tablet (Celexa) 10 mg PO DAILY depression 11/09/21 carvedilol 6.25 mg tablet 6.25 mg PO BID BP 07/01/22 insulin glargine U-300 conc 300 unit/mL (3 mL) subcutaneous pen (Toujeo Max U-300 SoloStar) 60 unit subcut QHS Diabetes 07/19/22 insulin lispro 100 unit/mL subcutaneous pen 5 - 10 unit subcut TID Diabetes 08/18/23 nitroglycerin 0.4 mg sublingual tablet 0.4 mg sublingual Q5M PRN chest pain 08/18/23 cetirizine 10 mg capsule (Zyrtec) 10 mg PO DAILY 01/10/24 aspirin 81 mg tablet,delayed release 81 mg PO BREAKFAST #0 tabs 02/03/24 magnesium chloride 71.5 mg (magnesium chloride) tablet,delayed release (Slow-Mag) 71.5 - 143 mg PO QHS Constipation 10/11/24 acetaminophen 500 mg tablet 1,000 mg (2 x 500 mg) PO Q8 #0 tabs 11/12/24 lidocaine 5 % topical patch 1 patch topical DAILY 30 days #30 ea 11/12/24 oxycodone 5 mg tablet 5 mg PO Q4H PRN PRN Pain Score 1-10 Or Pre Pt/Ot 7 days #42 tabs 11/12/24 meclizine 25 mg tablet (Travel-Ease (meclizine)) 25 mg PO TID PRN PRN Dizziness #90 tabs 12/28/24 oxycodone 5 mg tablet 5 mg PO Q4H PRN PRN Pain Score 1-10 Or Pre Pt/Ot 3 days #18 tabs 12/28/24 pregabalin 75 mg capsule 150 mg (2 x 75 mg) PO TID #15 caps 12/28/24 Hospital Course Operations None Procedures None Summary of Care Provided Minutes Spent on Discharge: 47 Hospital Course: Patient is an 79-year-old female with an extensive past medical history as outlined was admitted through the ED on 12/25/2024 with complaint of generalized weakness as well as nausea and mechanical fall as well as diarrhea. She had a history of left total knee replacement in September and says she had been doing well after that but subsequently started feeling weak and could not carry out her activities of daily living. She said she had had chronic diarrhea but her diarrhea intensified as well as her nausea and weakness so she decided to come into the ED. He had assisted lightheadedness and dizziness. The dizziness had been going on for a while and was episodic. Patient also states that she could not do much for herself at home unlike previously. On admission labs were essentially unremarkable apart from pulmonary nodules less than 6 mm in size with recommended outpatient follow-up. She was admitted to be managed for debility and weakness with failure to thrive as well as diarrhea. Enteric pathogen panel was negative and CT was also negative. She was hydrated with fluid and PT OT was consulted. She was started on meclizine for this intermittent dizziness. She did have CT of the brain which did not show any evidence of any cause for this dizziness. Patient's dizziness was not new and so a full stroke workup was not pursued because there was very low suspicion for stroke. She was called as needing to go to a senior care. She was concerned that her dizziness was due to her in the ER so therapy was requested to perform an Angelo maneuver and she was also referred to ENT on outpatient basis. She was discharged to long term home on 12/28/2024. She is to follow-up with her primary care doctor within 1 to 2 weeks. She was discharged with a prescription for p.o. meclizine and she was on Lyrica at home and was given a short course of Lyrica on discharge and for senior care doctor to write follow-up prescription as needed. She was also given a prescription for p.o. oxycodone 5 mg every 4 hours as needed for total of 18 tablets for 3 days. OARRS score was checked and no red flags were seen. Patient was seen and examined prior to discharge with her nurse by her bedside. She still complain of the intermittent dizziness. Her daughter was also on the phone. She was told that the Angelo maneuver had been requested with PT OT. She was also referred to ENT on outpatient basis. Labs and vitals reviewed. Home medication reviewed and reconciled. Physical Exam Const alert, oriented x3 and no apparent distress Constitutional Narrative: class II obesity. Frail General Appearance: cooperative HEENT normocephalic, head/scalp atraumatic, moist oral mucous membranes and oropharynx normal Eyes EOMs intact bilaterally Neck no lymphadenopathy and supple Lymph Lymphatic: no lymphedema noted Resp normal respiratory effort, normal air movement and clear to auscultation bilaterally Cardio regular rate, regular rhythm, S1 normal heart sound, S2 normal heart sound and no murmurs GI normal to inspection, nondistended, normoactive bowel sounds, soft to palpation, non-tender and non-distended Extremity normal to inspection, full ROM, normal capillary refill, no clubbing, cyanosis or edema and no calf tenderness General Extremity: no tenderness to palpation of joints or extremities Skin no rashes or lesions noted General Skin Exam: no breakdown Neuro oriented x3, CN's II-XII intact bilaterally, moves all extremities and no focal motor deficits Sensorium / Orientation: awake Motor Exam: strength 5/5 throughout and general weakness Psych thought process normal and cooperative Appearance: appropriate Weight / BMI Weight Weight: 218 lb 14.704 oz Body Mass Index (BMI) 36.4 ABG / Lab / Microbiology Data 12/28/24 07:45 12/28/24 07:45 Laboratory: Laboratory Results - last 24 hr 12/27/24 22:14: POC Glucose 182 H 12/28/24 06:36: POC Glucose 129 H 12/28/24 07:45: WBC 6.3, RBC 4.21, Hgb 12.5, Hct 38.5, MCV 91.4, MCH 29.7, MCHC 32.5, RDW Std Deviation 50.6 H, RDW Coeff of Sarah 15.0 H, Plt Count 181, MPV 10.9, Immature Gran % (Auto) 0.500, Neut % (Auto) 41.1 L, Lymph % (Auto) 41.6 H, Surry % (Auto) 9.5, Eos % (Auto) 5.9 H, Baso % (Auto) 1.4 H, Absolute Neuts (auto) 2.6, Absolute Lymphs (auto) 2.63, Nucleated RBC % 0, Sodium 140, Potassium 5.0, Chloride 109 H, Carbon Dioxide 23.8, Anion Gap 8, BUN 18, Creatinine 1.09, Estim Creat Clear Calc 48.04 L, Est GFR (MDRD) Non-Af 51 L, BUN/Creatinine Ratio 16.5, Glucose 118 H, Calcium 9.4 12/28/24 12:22: POC Glucose 215 H 12/28/24 16:26: POC Glucose 206 H Microbiology: Microbiology 12/27/24 16:30 Stool Enteric Bacteriology - Final 12/27/24 16:30 Stool Clostridioides difficile (PCR) - Final 12/25/24 21:15 Mucosa - Nasopharyngeal Respiratory Panel (PCR) - Final 12/25/24 21:15 Mucosa - Nasopharyngeal Coronavirus COVID-19 PCR - Final 12/25/24 14:22 Mucosa - Nose SARS-CoV-2, Influenza & RSV (PCR) - Final Radiography Diagnostic Testing: Radiology Impression Brain CT 12/28/24 11:28 IMPRESSION: 1. No evidence of intracranial hemorrhage or acute ischemia. 2. Changes of chronic microvascular ischemia and volume loss. Reading Location: [id number] Instructions Discharge Activity: Return to Normal Activity Weight Bearing Status: Weight bearing as tolerated Call your doctor if you observe: Fever of 101 or Higher, Dizziness, Swelling in the ankles and Chest pain DC O2, CPAP, BIPAP Needs Home O2 Discharge instructions: No DC home with Oxygen: No Meaningful Use Info Meaningful Use Meaningful Use Diagnoses (Choose all that apply): None applicable Discharge Plan Admission Admit Date/Time: 12/25/24 19:25 Primary Reason for Your Visit: debility and weakness, dizziness, failure to thrive Attending Provider: Justa Warner Primary Care Provider: Bryson Hernandez Chi Consulting Providers: Miriam Holland Instructions Patient Instructions: ED FALL-from [facility] Discharge Orders/Prescriptions Prescriptions: New meclizine [Travel-Ease (meclizine)] 25 mg Tablet 25 mg PO TID PRN PRN (Reason: Dizziness) Qty: 90 0RF oxycodone 5 mg Tablet 5 mg PO Q4H PRN PRN (Reason: Pain Score 1-10 Or Pre Pt/Ot) 3 Days Qty: 18 0RF pregabalin 75 mg Capsule 150 mg PO TID Qty: 15 0RF Continued Zyrtec 10 mg capsule 10 mg PO DAILY carvedilol 6.25 mg tablet 6.25 mg PO BID insulin glargine U-300 conc [Toujeo Max U-300 SoloStar] 300 unit/mL (3 mL) insulin pen 60 unit subcut QHS nitroglycerin 0.4 mg tablet, sublingual 0.4 mg sublingual Q5M PRN (Reason: chest pain) Rx Instructions: do not exceed 3 doses per episode insulin lispro 100 unit/mL insulin pen 5 - 10 unit subcut TID Rx Instructions: Before meals. Slow-Mag 71.5 mg tablet,delayed release (DR/EC) 71.5 - 143 mg PO QHS isosorbide mononitrate 30 mg tablet extended release 24 hr 1 tab PO DAILY Patient Comments: TAKE 1 TABLET BY MOUTH ONCE DAILY FOR 30 DAYS omeprazole 40 mg capsule,delayed release(DR/EC) 1 cap PO BID Patient Comments: TAKE 1 CAPSULE BY MOUTH TWICE DAILY citalopram [Celexa] 10 mg Tablet 10 mg PO DAILY aspirin 81 mg Tablet,Delayed Release (Dr/Ec) 81 mg PO BREAKFAST Qty: 0 0RF acetaminophen 500 mg Tablet 1,000 mg PO Q8 Qty: 0 0RF lidocaine 5 % Adhesive Patch,Medicated 1 patch topical DAILY 30 Days Qty: 30 0RF oxycodone 5 mg Tablet 5 mg PO Q4H PRN PRN (Reason: Pain Score 1-10 Or Pre Pt/Ot) 7 Days Qty: 42 0RF Discontinued pregabalin 75 mg Capsule 150 mg PO TID Qty: 0 0RF oxycodone 5 mg tablet 5 mg PO Q4H PRN (Reason: pain) 7 Days Qty: 42 0RF Referrals / Follow Up: Jerald Cole MD [Med Staff - Active Staff] - Within 2 Weeks (see as follow up for persistent dizziness.) Bryson Hernandez Chi, MD [Primary Care Provider] - Within 1 Week Disposition Disposition (needs filled in before D/C Order can be placed): [facility] Facility Charges/Coding Visit Charges Inpatient E&M: 45209 Disch Hosp >30min
--- NOTE | 2024-12-28 15:19 | CASEMGMT ---
Addendum entered by Rosaura Strickland 12/28/24 15:29: MITZI provided notification of 6:30PM transport time to pt, pt dtr, Marry, and pt bedside nurse. YAZMIN Riggs Original Note: Social Work Precert has been obtained.? Physician updated and pt is ready for discharge today.? 7000 convalescent form completed in [facility]. SW met with pt and they are agreeable to discharge plan as stated above.? DCA and bedside nurse notified of discharge. DCA to complete all final arrangements and notifications. Disposition:[facility], skilled level of care YAZMIN Riggs
--- NOTE | 2024-12-28 15:34 | CASEMGMT ---
Discharge Planning Discharge orders and transport time sent to [facility]. Physicians will transport pt by wheelchair at 6:30p. Nursing and SW updated. SW to update pt and family. Narda Cormier DC Planning Asst.
[2024-12-28 16:05] VITALS: BP 144/74; PULSE 80; RESP 18; TEMP 36.9; O2SAT 97
[2024-12-28 19:44] VITALS: BP 156/69; PULSE 65; RESP 18; TEMP 36.6; O2SAT 94
[2024-12-28 19:46] VITALS: BP 156/69; PULSE 65; RESP 18; TEMP 36.6; O2SAT 94
== END 2024-12-28 19:45 | disposition skilled nursing facility (03) ==
LOC: ED 17:34 → MS3 19:53
PROVIDERS: Admitting Provider Family Medicine; Emergency Provider Surgery; PCP Family Medicine Geriatric Medicine; Visit Provider Student in an Organized Health Care Education/Training Program
DX: K52.9 Noninfective gastroenteritis and colitis, unspecified (principal); Z79.4 Long term (current) use of insulin; E11.42 Type 2 diabetes mellitus with diabetic polyneuropathy; E11.22 Type 2 diabetes mellitus with diabetic chronic kidney disease; N18.32 Chronic kidney disease, stage 3b; R62.7 Adult failure to thrive; Z96.652 Presence of left artificial knee joint; E78.5 Hyperlipidemia, unspecified; I44.7 Left bundle-branch block, unspecified; K21.9 Gastro-esophageal reflux disease without esophagitis; Z87.891 Personal history of nicotine dependence; R68.83 Chills (without fever); I25.10 Atherosclerotic heart disease of native coronary artery without angina pectoris; R42 Dizziness and giddiness; Z82.49 Family history of ischemic heart disease and other diseases of the circulatory system; R53.81 Other malaise; D50.9 Iron deficiency anemia, unspecified; I12.9 Hypertensive chronic kidney disease with stage 1 through stage 4 chronic kidney disease, or unspecified chronic kidney disease; E86.9 Volume depletion, unspecified; G89.4 Chronic pain syndrome; Z90.710 Acquired absence of both cervix and uterus; F32.A Depression, unspecified; N17.9 Acute kidney failure, unspecified; R91.8 Other nonspecific abnormal finding of lung field; Z79.82 Long term (current) use of aspirin; Z79.899 Other long term (current) drug therapy; E66.812 Obesity, class 2; Z68.36 Body mass index [BMI] 36.0-36.9, adult
CPT/HCPCS: 36415; 70450; 71046; 71275; 74176; 80048; 80053; 81001; 82962; 83690; 83735; 84145; 84484; 85025; 85652; 86140; 87493; 87506; 87631; 87633; 87635; 93005; 94668; 96361; 96374; 96375; 97110; 97116; 97162; 97166; 97530; 97535; 97802; 99221; 99285; Q9967; A4216; G0378; J2405